=== PATIENT | female | born 2000 | race Caucasian/White ===

== ENCOUNTER → 2020-10-12 19:14 | Outpatient (CLI) | payer BC, SELFPAY | PROVIDERS: Visit Provider Nurse Practitioner Family | DX: Z11.52 Encounter for screening for COVID-19 (principal) | CPT/HCPCS: U0003 ==

== ENCOUNTER 2020-12-25 17:40 | Emergency (ER) | payer BC, SELFPAY ==
--- NOTE | 2020-12-25 20:05 | HMH.EDUTC ---
[facility] Disposition Clinical Impression: Viral syndrome, Exposure to COVID-19 virus, Amenorrhea Disposition: Home, Self-Care Condition on Discharge: Good Instructions: Diet, Preventing the Spread of Coronavirus Discharge Instructions Additional Instructions: Drink plenty of fluids. Take tylenol for pain or fever. Return if you have worsening symptoms. Follow up with your regular doctor. GO TO THE ER FOR ANY WORSENING SYMPTOMS Referrals: Ozzy Cobos MD [Primary Care Provider] - Time of Disposition: 20:07 Medical Decision Making - Medical Records Medical records reviewed: No: I reviewed the patient's medical records. - [place] Inquiry Pt receiving controlled substance: No Vital Signs: 12/25/20 20:29 12/25/20 20:32 Temperature 98.2 F 98 F Temperature Source Oral Pulse Rate 79 Pulse Rate [Left] 86 Respiratory Rate 22 20 Blood Pressure 136/80 Blood Pressure [Right Arm] 141/86 H Blood Pressure Mean [Right Arm] 104 02 Sat by Pulse Oximetry 96 - Lab Data Lab Results 12/25/20 20:12: HCG, Quant < 2 [facility] HPI - General Stated complaint: Covid test,[place] Time Seen by Provider: 12/25/20 20:05 - History of Present Illness Provider Complaint: She is here to be checked for covid. She also thinks that she might be . She has had 2 positive tests at home over the past 2 days. She denies any cough, congestion, fever, chills. - Related Data Home Medications Medication Instructions Recorded Confirmed lisinopril 10 mg tablet 10 mg PO DAILY 10/12/20 10/12/20 Previous Rx's Medication Instructions Recorded azithromycin 250 mg tablet 250 mg PO QDAY 5 Days #6 tab 10/12/20 benzonatate 200 mg capsule 200 mg PO TID PRN 7 Days #21 cap 10/12/20 Allergies Allergy/AdvReac Type Severity Reaction Status Date / Time No Known Allergies Allergy Verified 10/12/20 14:01 [facility] History - Hepatitis A Screen Attestation statement:: This patient has been screened for Hepatitis A risk factors. I have reviewed the patient's past medical history: Yes Medical History: Reports:: Hypertension Other Surgeries: Yes: No Previous Surgery - Social History Smoking Status: Never smoker Alcohol Intake: never Substance Use Type: denies use Occupational Status: student, employed Housing: house Household Members: family Family Hx:: Diabetes ROS Obtained: Yes All systems reviewed & no additional complaints - Constitutional Constitutional: Reports as per HPI - Eyes Eyes: Denies eye discharge - ENT Ears, Nose, Mouth, and Throat: Reports as per HPI - Cardiovascular Cardiovascular: Denies chest pain - Respiratory Respiratory: Reports chest congestion, Reports cough, Denies dyspnea, Denies stridor, Denies wheezing Physical Exam - General General appearance: alert, in no apparent distress - Head Head exam: atraumatic, normocephalic, normal inspection - Eye Eye exam: Present: normal appearance, PERRL, EOMI - ENT ENT exam: Present: normal exam, normal oropharynx, mucous membranes moist, TM's normal bilaterally, normal external ear exam - Neck Neck exam: Present: normal inspection, full ROM, trachea midline. Absent: meningismus, lymphadenopathy - Chest Chest inspection: Present: normal inspection, symmetric chest wall rise. Absent: tenderness - Respiratory Respiratory exam: Present: normal lung sounds bilaterally. Absent: respiratory distress - Cardiovascular Cardiovascular exam: Present: regular rate, normal rhythm. Absent: JVD - Abdominal Exam Abdominal exam: Present: soft, normal bowel sounds. Absent: distention, tenderness, guarding - Extremities Exam Extremities exam: Present: normal inspection, full ROM, normal capillary refill. Absent: calf tenderness - Back Exam Back exam: Present: normal inspection. Absent: tenderness - Neurological Exam Neurological exam: Present: alert, oriented X3 - Psychiatric Psychiatric exam
[2020-12-25 20:29] VITALS: BP 141/86; PULSE 86; RESP 22; TEMP 36.8; O2SAT 96; BMI 43.4
[2020-12-25 20:32] VITALS: BP 136/80; PULSE 79; RESP 20; TEMP 36.6
[2020-12-25 20:51] LABS: HCG,Quantitative < 2 mIU/ml (0-5.42)
== END 2020-12-25 20:35 | disposition home or self-care (01) ==
PROVIDERS: Emergency Provider Nurse Practitioner Family; PCP Family Medicine
DX: B34.9 Viral infection, unspecified; N91.2 Amenorrhea, unspecified; Z20.822 Contact with and (suspected) exposure to COVID-19
CPT/HCPCS: 84702; 99202; G0463; U0003

== ENCOUNTER 2021-02-22 19:42 | Emergency (ER) | payer BC, SELFPAY ==
--- NOTE | 2021-02-22 19:37 | ECG_ITS ---
APPROVED REPORT Exam: Resting ECG HR:86 bpm ECG Measurements Heart Rate 86 AXES MO 108 P 46 QRSd 74 QRS 54 QT 370 T 40 QTc 442 Conclusion Sinus rhythm with sinus arrhythmia with short MO Otherwise normal ECG Electronically signed by : Isaias Sanchez MD 02/23/2021 09:16:57
[2021-02-22 19:44] VITALS: BP 160/106; PULSE 86; RESP 17; TEMP 36.8; O2SAT 96; BMI 44.7
--- NOTE | 2021-02-22 19:55 | CT_ITS ---
PROCEDURE INFORMATION: Exam: CTA Chest With Contrast Exam date and time: 02/22/2021 7:55 PM Age: 20 years old Clinical indication: Pain; Angina pectoris; Additional info: Stabbing pain from back into chest TECHNIQUE: Imaging protocol: Computed tomographic angiography of the chest with contrast. 3D rendering (Not supervised by radiologist): MIP and/or 3D reconstructed images were created by the technologist. Radiation optimization: All CT scans at this facility use at least one of these dose optimization techniques: automated exposure control; mA and/or kV adjustment per patient size (includes targeted exams where dose is matched to clinical indication); or iterative reconstruction. Contrast material: ISO 370; Contrast volume: 70 ml; Contrast route: INTRAVENOUS (IV); COMPARISON: CR XR CHEST PORTABLE 02/22/2021 8:55 PM FINDINGS: Pulmonary arteries: Suboptimal opacification of the pulmonary arteries. No evidence of central PE. Aorta: Unremarkable. No aortic aneurysm. No aortic dissection. Lungs: A tiny calcified nodule seen in the left posterior lower lobe. Lungs are otherwise clear. Pleural spaces: Unremarkable. No pneumothorax. No pleural effusion. Heart: Unremarkable. No cardiomegaly. No pericardial effusion. Lymph nodes: Unremarkable. No enlarged lymph nodes. Bones/joints: Unremarkable. No acute fracture. Soft tissues: Unremarkable. IMPRESSION: No acute findings
--- NOTE | 2021-02-22 19:57 | XR_ITS ---
PROCEDURE INFORMATION: Exam: XR Chest Exam date and time: 02/22/2021 7:57 PM Age: 20 years old Clinical indication: Pain; Angina pectoris; Additional info: Pain in chest radiating from back TECHNIQUE: Imaging protocol: XR of the chest. Views: 1 view. COMPARISON: No relevant prior studies available. FINDINGS: Lungs: Unremarkable. No consolidation. Pleural spaces: Unremarkable. No pleural effusion. No pneumothorax. Heart/Mediastinum: Unremarkable. No cardiomegaly. Bones/joints: Unremarkable. IMPRESSION: No acute findings.
[2021-02-22 20:04] LABS: Basophils # 0.1 K/mm3 (0-0.2); Eosinophils # 0.2 K/mm3 (0.0-0.4); Eosinophils % 1.8 % (0.1-12.0); Hematocrit 39.4 % (37.0-47.0); Hemoglobin 12.3 g/dL (12.2-16.2); Lymphocytes # 3.2 K/mm3 (0.7-4.5); Lymphocytes % 31.2 % (10-50); Mean Corpuscular HGB Conc 31.2 g/dL (31.8-35.4); Mean Corpuscular Hemoglobin 25.5 pg (27.0-31.2); Mean Corpuscular Volume 81.9 fl (81-99); Mean Platelet Volume 8.6 fl (7.4-10.4); Monocytes # 0.4 K/mm3 (0.1-1.0); Monocytes % 3.6 % (1.7-9.3); Neutrophils # 6.3 K/mm3 (1.8-7.8); Neutrophils % 62.5 % (37.0-80.0); Platelet Count 321 K/mm3 (142-424); Red Blood Count 4.82 M/mm3 (4.20-5.40); Red Cell Distribution Width 15.2 % (11.5-17.5); White Blood Count 10.1 K/mm3 (4.5-13.0)
[2021-02-22 20:09] LABS: Alanine Aminotransferase 20 U/L (12-78); Albumin Level 4.4 g/dl (3.5-5.0); Alkaline Phosphatase 75 U/L (38-126); Amylase 66 U/L (30-110); Aspartate Amino Transferase 22 U/L (14-36); Bilirubin,Indirect 0.3 mg/dL (0.0-0.9); Bilirubin,Total 0.3 mg/dl (0.2-1.3); Bilirubin,Unconjugated 0.3 mg/dL (0.0-1.1); Blood Urea Nitrogen 11 mg/dl (7-17); Calcium 9.2 mg/dl (8.4-10.2); Carbon Dioxide 27 mmol/L (22.0-30.0); Chloride 106 mmol/L (98-107); Creatinine Clearance Estimated 139 mL/min (50-200); Estimated Glomerular Filt Rate 107 ml/min (>60); GFR (African American) 129 ML/MIN (>60); Glucose 93 mg/dl (74-100); Lipase 94 U/L (23-300); Sodium 141 mmol/L (136-145); Total Protein,Serum 7.8 g/dl (6.3-8.2)
[2021-02-22 20:14] LABS: C-Reactive Protein 11.7 mg/L (0-4)
[2021-02-22 20:18] LABS: HCG Qualitative, Serum Negative (Negative)
[2021-02-22 20:29] LABS: Erythrocyte Sedimentation Rate 15 mm/hr (0-20)
--- NOTE | 2021-02-22 20:51 | PC.NURSE ---
XR at bedside for portable
--- NOTE | 2021-02-22 20:54 | HMH.EDGENADL ---
ED Disposition Clinical Impression: Atypical chest pain Disposition: Home, Self-Care Condition on Discharge: Good Referrals: Nicci Baker PA [Primary Care Provider] - - Critical Care Critical Care Time: No Attestation: On 02/22/21, the high probability of a clinically significant, sudden or life threatening deterioration of the following system(s) required my full and direct attention, intervention and personal management. The time I documented below is in addition to time spent performing reported procedures but includes the following listed in this critical care notation. Medical Decision Making - Medical Records Medical records reviewed: Yes: I reviewed the patient's medical records. - [place] Inquiry Pt receiving controlled substance: No Vital Signs: 02/22/21 19:44 Temperature 98.3 F Temperature Source Oral Pulse Rate [Right Brachial] 86 Respiratory Rate 17 Blood Pressure [Right Arm] 160/106 H Blood Pressure Mean [Right Arm] 124 Blood Pressure Source [Right Arm] Automatic Cuff Blood Pressure Position [Right Arm] Sitting 02 Sat by Pulse Oximetry 96 Oxygen Delivery Method Room Air - Lab Data Lab Results 02/22/21 19:48: WBC 10.1, RBC 4.82, Hgb 12.3, Hct 39.4, MCV 81.9, MCH 25.5 L, MCHC 31.2 L, RDW 15.2, Plt Count 321, MPV 8.6, Neut % (Auto) 62.5, Lymph % (Auto) 31.2, [place] % (Auto) 3.6, Eos % (Auto) 1.8, Baso % (Auto) 1.0, Neut # (Auto) 6.3, Lymph # (Auto) 3.2, [place] # (Auto) 0.4, Eos # (Auto) 0.2, Baso # (Auto) 0.1, ESR 15 02/22/21 19:48: Sodium 141, Potassium 4.0, Chloride 106, Carbon Dioxide 27, Anion Gap 12.0, BUN 11, Creatinine 0.70, Estimated Creat Clear 139, Estimated GFR 107, Est GFR ( Amer) 129, Glucose 93, Calcium 9.2, Total Bilirubin 0.3, Direct Bilirubin 0.0, Conjugated Bilirubin 0.0, Indirect Bilirubin 0.3, Unconjugated Bilirubin 0.3, AST 22, ALT 20, Alkaline Phosphatase 75, C-Reactive Protein 11.7 H, Total Protein 7.8, Albumin 4.4, Amylase 66, Lipase 94 02/22/21 19:48: Serum HCG, Qual Negative 02/22/21 19:48: D-Dimer 0.50 Result diagrams: 02/22/21 19:48 02/22/21 19:48 Orders (Tests/Meds): ED MEDICATIONS Discontinued Medications Generic Name Dose Route Start Last Admin Trade Name Yoli PRN Reason Stop Dose Admin Iopamidol 70 ml 02/22/21 21:03 02/22/21 21:05 Iopamidol-370 (76%);100ml Bottle IV 02/22/21 21:04 70 ml ONCE ONE Administration Sodium Chloride 50 ml 02/22/21 21:03 02/22/21 21:05 0.9 % Sodium Chloride 50 Ml Vial IV 02/22/21 21:04 50 ml ONCE ONE Administration Sodium Chloride 10 ml 02/22/21 21:03 02/22/21 21:05 Sodium Chloride 0.9% 10ml Syr (Rad Only) IV 02/22/21 21:04 10 ml ONCE ONE Administration Medical Decision Narrative: Patient is a 20-year-old female presents the ED today with chest pain. Patient is well-appearing on initial evaluation in no acute distress and vital signs are stable. On initial evaluation patient rates her pain a 6 out of 10 is better after aspirin administration, staff obtained IV access shortly after arrival, given this possible allergic family history of aortic dissection, we will obtain CBC CMP D-dimer, test, have discussed further management with a CTA of the chest with the patient, patient is amenable. I believe the scan is indicated even if patient is young as she is having this atypical chest pain, started very suddenly, she is hypertensive, with a possible history in the family, would be a devastating diagnosis to miss. Labs reviewed with no evidence of elevated D-dimer, there is no actionable abnormality on CBC or CMP. Amylase and lipase without significant abnormality as well. Patient CTA has been independently interpreted did not visualize any intra aortic flap or dilation that would be consistent with a dissection or aneurysm, patient has been reassessed and her pain has been improving gradually throughout her ED stay, I have discussed with the patient signs and symptoms to look out
[2021-02-22 21:54] VITALS: BP 112/80; PULSE 88; RESP 19; TEMP 36.7; O2SAT 99
== END 2021-02-22 22:03 | disposition home or self-care (01) ==
PROVIDERS: Emergency Medicine; Emergency Provider Student in an Organized Health Care Education/Training Program; PCP Physician Assistant
DX: R07.9 Chest pain, unspecified (principal)
CPT/HCPCS: 71045; 71275; 80048; 80076; 82150; 83690; 84703; 85025; 85378; 85651; 86140; 93005; 99282; Q9967

== ENCOUNTER → 2021-03-23 10:23 | Outpatient (CLI) | payer BC, SELFPAY | PROVIDERS: PCP Family Medicine; Visit Provider Family Medicine | DX: Z20.822 Contact with and (suspected) exposure to COVID-19 (principal); U07.1 COVID-19 | CPT/HCPCS: C9803; U0003; U0005 ==

== ENCOUNTER 2021-03-25 07:51 | Outpatient (CLI) | payer BC, SELFPAY ==
[2021-03-25] VITALS (8 sets, daily range): BP systolic 107–142; BP diastolic 58–73; PULSE 79–96; RESP 16–18; TEMP 36.7; O2SAT 96–98
== END 2021-03-25 11:10 | disposition home or self-care (01) ==
LOC: INF 07:52
PROVIDERS: PCP Family Medicine; Visit Provider Family Medicine
DX: U07.1 COVID-19 (principal); Z23 Encounter for immunization
CPT/HCPCS: 96365

== ENCOUNTER → 2021-05-28 07:55 | Outpatient (CLI) | payer BC, SELFPAY ==
[2021-05-28 08:54] LABS: HCG,Quantitative 93 mIU/ml (0-5.42)
== END ==
LOC: LAB.DROPOF 07:55
PROVIDERS: Visit Provider Nurse Practitioner Family
DX: Z34.90 Encounter for supervision of normal pregnancy, unspecified, unspecified trimester (principal); Z3A.01 Less than 8 weeks gestation of pregnancy
CPT/HCPCS: 84702

== ENCOUNTER → 2021-06-05 08:37 | Outpatient (CLI) | payer BC, SELFPAY ==
[2021-06-05 09:42] LABS: HCG,Quantitative 2756 mIU/ml (0-5.42)
== END ==
LOC: LAB.DROPOF 08:37
PROVIDERS: Visit Provider Obstetrics & Gynecology
DX: Z34.90 Encounter for supervision of normal pregnancy, unspecified, unspecified trimester (principal)
CPT/HCPCS: 84702

== ENCOUNTER → 2021-06-06 07:57 | Outpatient (CLI) | payer BC, SELFPAY ==
[2021-06-06 09:14] LABS: Adenovirus,PCR Not Detected (NotDetected); Bordetella Pertussis Not Detected (NotDetected); Chlamydophila Pneumoniae, PCR Not Detected (NotDetected); Coronavirus 229E Not Detected (NotDetected); Coronavirus NL63 Not Detected (NotDetected); Coronavirus OC43 Not Detected (NotDetected); Coronovirus HKU1,PCR Not Detected (NotDetected); Human Metapneumovirus Not Detected (NotDetected); Influenza A, PCR Not Detected (NotDetected); Influenza AH1, 2009 Not Detected (NotDetected); Influenza AH1, PCR Not Detected (NotDetected); Influenza AH3,PCR Not Detected (NotDetected); Influenza B, PCR Not Detected (NotDetected); Mycoplasma Pneumoniae, PCR Not Detected (NotDetected); Parainfluenza 1, PCR Not Detected (NotDetected); Parainfluenza 2, PCR Not Detected (NotDetected); Parainfluenza 3, PCR Not Detected (NotDetected); Parainfluenza 4, PCR Not Detected (NotDetected); Respiratory Syncytial Virus Not Detected (NotDetected); Rhinovirus/Enterovirus Not Detected (NotDetected)
[2021-06-06 11:11] LABS: Coronavirus 19, PCR Detected (NotDetected)
== END ==
PROVIDERS: PCP Physician Assistant; Visit Provider Physician Assistant
DX: U07.1 COVID-19 (principal)
CPT/HCPCS: 87581; 87632; 87798; C9803; U0003; U0005

== ENCOUNTER → 2021-06-11 08:24 | Outpatient (CLI) | payer BC, SELFPAY ==
[2021-06-11 10:24] LABS: HCG,Quantitative 15605 mIU/ml (0-5.42)
== END ==
PROVIDERS: Visit Provider Obstetrics & Gynecology
DX: Z34.90 Encounter for supervision of normal pregnancy, unspecified, unspecified trimester (principal)
CPT/HCPCS: 84702

== ENCOUNTER → 2021-06-21 13:46 | Outpatient (CLI) | payer BC, SELFPAY ==
--- NOTE | 2021-06-21 13:47 | US_ITS ---
FINAL REPORT CLINICAL HISTORY: Dates--early ob FINDINGS: Sonographic images of the pelvis were obtained. There is a single living intrauterine . Average ultrasound age is 7 weeks, 3 days. Yolk sac measures 0.44 cm. [place] rump length is 1.22 cm which corresponds to 7 week 3 day gestation. Heart beat is detected at 144 bpm. The ovaries are normal measuring 3 cm on the right and 4.3 cm on the left. IMPRESSION: Single living intrauterine . Reviewed, Interpreted and Dictated by Armaan Mcpherson III, MD Transcribed by Sonia Bland Authenticated by Armaan Mcpherson III, MD on 06/21/2021 03:19:20 PM [facility]
== END ==
PROVIDERS: PCP Physician Assistant; Visit Provider Obstetrics & Gynecology
DX: Z34.90 Encounter for supervision of normal pregnancy, unspecified, unspecified trimester (principal)
CPT/HCPCS: 76801

== ENCOUNTER → 2021-06-28 16:49 | Outpatient (CLI) | payer BC, SELFPAY ==
[2021-07-02 23:12] LABS: Neisseria gonorrhoeae, NAA Negative (Negative)
== END ==
PROVIDERS: Visit Provider Obstetrics & Gynecology
DX: Z34.90 Encounter for supervision of normal pregnancy, unspecified, unspecified trimester (principal)
CPT/HCPCS: 87491; 87591

== ENCOUNTER → 2021-06-29 07:00 | Outpatient (CLI) | payer BC, SELFPAY ==
[2021-06-29 07:31] LABS: Basophils % 0.4 % (0.1-2.0); Eosinophils # 0.1 K/mm3 (0.0-0.4); Eosinophils % 1.5 % (0.1-12.0); Hematocrit 35.3 % (37.0-47.0); Hemoglobin 11.7 g/dL (12.2-16.2); Lymphocytes # 1.7 K/mm3 (0.7-4.5); Lymphocytes % 23.8 % (10-50); Mean Corpuscular HGB Conc 33.2 g/dL (31.8-35.4); Mean Corpuscular Hemoglobin 25.6 pg (27.0-31.2); Mean Corpuscular Volume 76.9 fl (81-99); Mean Platelet Volume 8.7 fl (7.4-10.4); Monocytes # 0.3 K/mm3 (0.1-1.0); Monocytes % 4.3 % (1.7-9.3); Neutrophils # 5.1 K/mm3 (1.8-7.8); Platelet Count 274 K/mm3 (142-424); Red Blood Count 4.59 M/mm3 (4.20-5.40); Red Cell Distribution Width 15.8 % (11.5-17.5); White Blood Count 7.2 K/mm3 (4.5-13.0)
[2021-06-30 10:12] LABS: Rubella Antibodies, IgG 1.26 index (Immune >0.99)
[2021-06-30 11:12] LABS: HIV Screen 4th Generation wRfx Non Reactive (Non Reactive)
[2021-06-30 12:22] LABS: Rapid Plasma Reagin Ab Titer Non Reactive (NonRea<1:1)
[2021-06-30 13:31] LABS: Hepatitis B Surface Antigen Negative (Negative); Hepatitis C Antibody <0.1 s/co ratio (0.0-0.9)
== END ==
LOC: LAB 07:01
PROVIDERS: PCP Physician Assistant; Visit Provider Obstetrics & Gynecology
DX: Z34.90 Encounter for supervision of normal pregnancy, unspecified, unspecified trimester (principal)
CPT/HCPCS: 36415; 85025; 86592; 86703; 86762; 86850; 87340; 87380; G0432

== ENCOUNTER → 2021-09-14 08:07 | Outpatient (CLI) | payer BC, SELFPAY ==
[2021-09-14 16:51] LABS: Collection Time,Urine 24 hours; Total Volume,Urine 1000 mL (600-1600)
[2021-09-14 16:54] LABS: Patient Height,Urine 71 inches; Patient Weight,Urine 323 lbs
[2021-09-14 17:42] LABS: Creatinine 24 Hour,Urine 1020 mg/24hr (630-2500); Total Protein 24 Hour,Urine 80 mg/24 hr (40-90)
[2021-09-14 17:51] LABS: Creatinine Clearance Urine 95.1 mL/min (25-115); Creatinine,Urine Random 102 mg/dL (Not Estab.)
== END ==
PROVIDERS: Visit Provider Obstetrics & Gynecology
DX: Z34.90 Encounter for supervision of normal pregnancy, unspecified, unspecified trimester (principal); E66.01 Morbid (severe) obesity due to excess calories; Z68.42 Body mass index [BMI] 45.0-49.9, adult
CPT/HCPCS: 82575; 84155

== ENCOUNTER → 2021-09-19 12:52 | Outpatient (CLI) | payer BC, SELFPAY ==
--- NOTE | 2021-09-19 12:52 | US_ITS ---
FINAL REPORT CLINICAL HISTORY: OB complete, anatomy scan; sub-optimal imaging ability due to morbid obesity FINDINGS: There is a single live intrauterine gestation. Presentation is cephalic. Placenta is posterior, grade 1. movement is noted. Heart rate is measured 150 beats per minute. Three-vessel cord with satisfactory umbilical cord insertion. Four-chamber heart is noted. brain and ventricles are unremarkable. Chest and diaphragm are unremarkable. ABDOMEN: Both kidneys are unremarkable. Stomach is unremarkable. SPINE: There is limited visualization of the spine. AMNIOTIC FLUID: Appropriate amount. MEASUREMENTS: ULTRASOUND AGE: 20 weeks 1 days. GESTATION AGE: 20 weeks 2 days. ESTIMATED WEIGHT: 337 g GROWTH PERCENTILE: 39% % BPD: 4.7 cm corresponding with 20 weeks 2 days. OFD: 6.0 cm corresponding with 20 weeks 4 days. HC: 17 cm corresponding with 19 weeks 5 days. AC: 15 cm corresponding with 20 weeks 2 days. FL: 3.3 cm corresponding with 20 weeks 2 days. CEREBELLUM: 2 cm corresponding with 20 weeks 1 days. HUMERUS: 3.0 cm corresponding with 20 weeks 1 days. NUCH FOLD: 1.6 mm HC/AC: 1.13 CI: 78% FL/BPD: 70% FL/AC: 22% IMPRESSION: Single living IUP with an ultrasound age of 20 weeks 1 days. No abnormality is identified. Reviewed, Interpreted and Dictated by Armaan Mcpherson III, MD Transcribed by Padmini Segundo Authenticated by Armaan Mcpherson III, MD on 09/19/2021 03:19:[address] [facility]
== END ==
LOC: RAD 12:52
PROVIDERS: PCP Physician Assistant; Visit Provider Obstetrics & Gynecology
DX: Z34.90 Encounter for supervision of normal pregnancy, unspecified, unspecified trimester (principal)
CPT/HCPCS: 76805

== ENCOUNTER → 2021-11-01 08:36 | Outpatient (CLI) | payer BC, SELFPAY ==
[2021-11-01 09:04] LABS: Basophils # 0.1 K/mm3 (0-0.2); Basophils % 1.2 % (0.1-2.0); Eosinophils # 0.1 K/mm3 (0.0-0.4); Eosinophils % 1.1 % (0.1-12.0); Hematocrit 34.8 % (37.0-47.0); Hemoglobin 11.7 g/dL (12.2-16.2); Lymphocytes # 1.6 K/mm3 (0.7-4.5); Lymphocytes % 16.8 % (10-50); Mean Corpuscular HGB Conc 33.8 g/dL (31.8-35.4); Mean Corpuscular Hemoglobin 26.8 pg (27.0-31.2); Mean Corpuscular Volume 79.2 fl (81-99); Mean Platelet Volume 8.8 fl (7.4-10.4); Monocytes # 0.4 K/mm3 (0.1-1.0); Monocytes % 3.8 % (1.7-9.3); Neutrophils # 7.5 K/mm3 (1.8-7.8); Neutrophils % 77.2 % (37.0-80.0); Platelet Count 301 K/mm3 (142-424); Red Blood Count 4.39 M/mm3 (4.20-5.40); Red Cell Distribution Width 16.1 % (11.5-17.5); White Blood Count 9.7 K/mm3 (4.5-13.0)
[2021-11-01 09:16] LABS: Glucose,Fasting 95 mg/dl (74-100)
[2021-11-01 10:24] LABS: Glucose 1 Hour 117 mg/dL (74-100)
== END ==
PROVIDERS: PCP Family Medicine; Visit Provider Obstetrics & Gynecology
DX: Z34.90 Encounter for supervision of normal pregnancy, unspecified, unspecified trimester (principal)
CPT/HCPCS: 36415; 82951; 85025

== ENCOUNTER 2021-11-20 17:47 | Outpatient (CLI) | payer BC, SELFPAY ==
[2021-11-20 17:56] VITALS: BMI 45.9
[2021-11-20 17:57] VITALS: BMI 44.3
[2021-11-20 18:07] LABS: Microscopic, Urine URINE MICROSCOPIC (MICROSCOPIC)
[2021-11-20 18:12] LABS: Appearance,Urine CLEAR (Clear); Bilirubin,Urine Negative (Negative); Blood, Urine Negative (Negative); Color,Urine YELLOW (Yellow); Glucose,Urine (UA) Negative (Negative); Ketones,Urine Negative (Negative); Leukocyte Esterase,Urine Negative (Negative); Nitrate,Urine Negative (Negative); PH,Urine 6.5 (5.0-8.5); Protein,Urine Negative (Negative); Specific Gravity, Urine 1.025 (1.005-1.030)
[2021-11-20 19:51] LABS: Amphetamine/Metha Screen,Urine Negative ng/ml (<1000); Barbiturates Screen,Urine Negative ng/ml (<200)
[2021-11-20 19:52] LABS: Benzodiazepines Screen,Urine Negative ng/ml (<200); Cannabinoid Screen,Urine Negative ng/ml (<50)
[2021-11-20 19:53] LABS: Cocaine Screen,Urine Negative ng/ml (<300)
[2021-11-20 19:54] LABS: Methadone Screen,Urine Negative ng/ml (<300); Opiate Screen,Urine Negative ng/ml (<300)
[2021-11-20 19:55] LABS: Phencyclidine Screen,Urine Negative ng/ml (<25)
[2021-11-20 20:03] LABS: Squamous Epithelial Cell,Urine Occasional #/hpf (0-5)
[2021-11-20 20:04] LABS: Bacteria,Urine Trace /lpf
== END 2021-11-20 19:02 | disposition home or self-care (01) ==
LOC: OBOUT 17:49 → OB 17:50
PROVIDERS: PCP Family Medicine; Visit Provider Obstetrics & Gynecology
DX: O47.03 False labor before 37 completed weeks of gestation, third trimester (principal); Z3A.29 29 weeks gestation of pregnancy
CPT/HCPCS: 80305; 81001

== ENCOUNTER → 2021-11-22 12:22 | Outpatient (CLI) | payer BC, SELFPAY ==
[2021-11-22 11:20] LABS: Fetal Membrane Rupture (Rapid) Negative (Negative)
== END ==
PROVIDERS: PCP Psychiatry & Neurology Sleep Medicine; Visit Provider Obstetrics & Gynecology
DX: Z34.90 Encounter for supervision of normal pregnancy, unspecified, unspecified trimester (principal); Z3A.30 30 weeks gestation of pregnancy
CPT/HCPCS: 84112

== ENCOUNTER → 2021-12-13 09:53 | Outpatient (CLI) | payer BC, SELFPAY ==
--- NOTE | 2021-12-13 09:53 | US_ITS ---
FINAL REPORT CLINICAL HISTORY: Growth and JONG-- lga FINDINGS: There is a single live intrauterine gestation. Presentation is vertex. The cervical length is normal at 4.2 cm. Placenta is posterior. movement is noted. Three-vessel cord with satisfactory umbilical cord insertion. Four-chamber heart is noted. brain and ventricles are unremarkable. Chest and diaphragm are unremarkable. ABDOMEN: Both kidneys are unremarkable. Stomach is unremarkable. SPINE: No anomalies identified. Both arms and legs noted. AMNIOTIC FLUID: 14.40 cm, normal MEASUREMENTS: ULTRASOUND AGE: 32 weeks 4 days. GESTATION AGE: 32 weeks 3 days. ESTIMATED WEIGHT: 1900 g GROWTH PERCENTILE: 29 % BPD: 8.26 cm corresponding to 33 weeks 2 days. OFD: 10.54 cm corresponding to 33 weeks 2 days. HC: 29.75 cm corresponding to 33 weeks 0 days. AC: 28.28 cm corresponding to 32 weeks 3 days. FL: 5.97 cm corresponding to 31 weeks 1 days. HC/AC: 1.05 CI: 78% FL/BPD: 72% FL/AC: 21% IMPRESSION: Single living IUP with an ultrasound age of 32 weeks 4 days. No anomalies noted. Reviewed, Interpreted and Dictated by Urvashi De La O MD Transcribed by Ale Qureshi Authenticated and . [facility]
== END ==
LOC: RAD 09:53
PROVIDERS: PCP Family Medicine; Visit Provider Obstetrics & Gynecology
DX: Z34.90 Encounter for supervision of normal pregnancy, unspecified, unspecified trimester (principal)
CPT/HCPCS: 76816

== ENCOUNTER 2022-01-07 17:51 | Outpatient (CLI) | payer BC, SELFPAY ==
[2022-01-07 18:05] VITALS: BMI 45.4
[2022-01-07 18:16] LABS: Microscopic, Urine URINE MICROSCOPIC (MICROSCOPIC)
[2022-01-07 18:31] LABS: Appearance,Urine CLEAR (Clear); Bilirubin,Urine Negative (Negative); Blood, Urine Negative (Negative); Color,Urine YELLOW (Yellow); Glucose,Urine (UA) Negative (Negative); Ketones,Urine Negative (Negative); Leukocyte Esterase,Urine Negative (Negative); Nitrate,Urine Negative (Negative); Protein,Urine Negative (Negative)
[2022-01-07 18:46] LABS: Barbiturates Screen,Urine Negative ng/ml (<200)
[2022-01-07 18:47] LABS: Amphetamine/Metha Screen,Urine Negative ng/ml (<1000); Benzodiazepines Screen,Urine Negative ng/ml (<200)
[2022-01-07 18:48] LABS: Cocaine Screen,Urine Negative ng/ml (<300)
[2022-01-07 18:49] LABS: Cannabinoid Screen,Urine Negative ng/ml (<50); Methadone Screen,Urine Negative ng/ml (<300)
[2022-01-07 18:50] LABS: Opiate Screen,Urine Negative ng/ml (<300)
[2022-01-07 18:51] LABS: Bacteria,Urine 4+ /lpf; Phencyclidine Screen,Urine Negative ng/ml (<25)
[2022-01-07 18:55] VITALS: BP 129/80; PULSE 114; RESP 18; TEMP 36.7; O2SAT 99; BMI 45.4
== END 2022-01-07 19:55 | disposition home or self-care (01) ==
LOC: OBOUT 17:54 → OB 17:55
PROVIDERS: PCP Obstetrics & Gynecology; Visit Provider Nurse Practitioner Obstetrics & Gynecology
DX: O26.893 Other specified pregnancy related conditions, third trimester (principal); Z3A.36 36 weeks gestation of pregnancy; R10.2 Pelvic and perineal pain
CPT/HCPCS: 59025; 80305; 81001; 87086; 96365; G0463

== ENCOUNTER → 2022-01-09 06:49 | Outpatient (CLI) | payer BC, SELFPAY | PROVIDERS: Visit Provider Obstetrics & Gynecology | DX: Z34.90 Encounter for supervision of normal pregnancy, unspecified, unspecified trimester (principal); Z3A.36 36 weeks gestation of pregnancy | CPT/HCPCS: 86403 ==

== ENCOUNTER → 2022-01-10 13:23 | Outpatient (CLI) | payer BC, SELFPAY ==
[2022-01-10 14:03] LABS: Basophils % 0.3 % (0.1-2.0); Eosinophils # 0.1 K/mm3 (0.0-0.4); Eosinophils % 0.6 % (0.1-12.0); Hematocrit 33.7 % (37.0-47.0); Hemoglobin 10.8 g/dL (12.2-16.2); Lymphocytes # 1.5 K/mm3 (0.7-4.5); Lymphocytes % 15.3 % (10-50); Mean Corpuscular Hemoglobin 24.8 pg (27.0-31.2); Mean Corpuscular Volume 77.4 fl (81-99); Mean Platelet Volume 8.7 fl (7.4-10.4); Monocytes # 0.4 K/mm3 (0.1-1.0); Monocytes % 4.3 % (1.7-9.3); Neutrophils # 7.8 K/mm3 (1.8-7.8); Neutrophils % 79.6 % (37.0-80.0); Platelet Count 295 K/mm3 (142-424); Red Blood Count 4.35 M/mm3 (4.20-5.40); Red Cell Distribution Width 15.9 % (11.5-17.5); White Blood Count 9.8 K/mm3 (4.8-10.8)
[2022-01-10 14:04] LABS: D-Dimer 1.16 ug/mL (0.0-0.5)
[2022-01-10 14:08] LABS: Activated Partial Thrombo Time 27.9 seconds (22.8-30.6); Fibrinogen 496 mg/dL (229.9-363.5); INR 0.96 (0.9-1.1); Prothrombin Time 10.9 seconds (10.1-12.5)
[2022-01-10 15:15] LABS: Alanine Aminotransferase 11 U/L (12-78); Anion Gap 10.7 mEq/L (5-15); Aspartate Amino Transferase 18 U/L (14-36); Blood Urea Nitrogen 3 mg/dl (7-17); Calcium 8.8 mg/dl (8.4-10.2); Carbon Dioxide 20 mmol/L (22.0-30.0); Chloride 109 mmol/L (98-107); Estimated Glomerular Filt Rate 201 ml/min (>60); GFR (African American) 244 ML/MIN (>60); Glucose 105 mg/dl (74-100); Potassium 3.7 mmoL/L (3.5-5.1); Sodium 136 mmol/L (136-145); Uric Acid 3.9 mg/dl (2.5-6.2)
== END ==
PROVIDERS: PCP Family Medicine; Visit Provider Nurse Practitioner Obstetrics & Gynecology
DX: Z34.90 Encounter for supervision of normal pregnancy, unspecified, unspecified trimester (principal)
CPT/HCPCS: 36415; 80048; 84450; 84460; 84550; 85025; 85378; 85384; 85610; 85730

== ENCOUNTER 2022-01-10 15:46 | Outpatient (CLI) | payer BC, SELFPAY ==
[2022-01-10 16:40] VITALS: BP 118/86; PULSE 128; RESP 18; TEMP 36.7; O2SAT 98; BMI 45.0
== END 2022-01-10 17:40 | disposition home or self-care (01) ==
LOC: OBOUT 15:48 → OB 15:49
PROVIDERS: PCP Obstetrics & Gynecology; Visit Provider Obstetrics & Gynecology
DX: O13.3 Gestational [pregnancy-induced] hypertension without significant proteinuria, third trimester (principal); Z3A.36 36 weeks gestation of pregnancy
CPT/HCPCS: 59025; 96365; G0463

== ENCOUNTER → 2022-01-14 08:55 | Outpatient (CLI) | payer BC, SELFPAY ==
[2022-01-14 09:19] LABS: Basophils # 0.2 K/mm3 (0-0.2); Basophils % 1.9 % (0.1-2.0); Eosinophils # 0.1 K/mm3 (0.0-0.4); Eosinophils % 0.8 % (0.1-12.0); Hematocrit 34.8 % (37.0-47.0); Hemoglobin 11.1 g/dL (12.2-16.2); Lymphocytes # 1.5 K/mm3 (0.7-4.5); Lymphocytes % 14.9 % (10-50); Mean Corpuscular HGB Conc 31.9 g/dL (31.8-35.4); Mean Corpuscular Hemoglobin 25.1 pg (27.0-31.2); Mean Corpuscular Volume 78.5 fl (81-99); Mean Platelet Volume 8.5 fl (7.4-10.4); Monocytes # 0.4 K/mm3 (0.1-1.0); Monocytes % 4.5 % (1.7-9.3); Neutrophils # 7.7 K/mm3 (1.8-7.8); Neutrophils % 77.9 % (37.0-80.0); Platelet Count 301 K/mm3 (142-424); Red Blood Count 4.43 M/mm3 (4.20-5.40); Red Cell Distribution Width 16.3 % (11.5-17.5); White Blood Count 9.9 K/mm3 (4.8-10.8)
[2022-01-14 10:05] LABS: Alanine Aminotransferase 10 U/L (12-78); Albumin Level 3.3 g/dl (3.5-5.0); Albumin/Globulin Ratio 1.2 (1.1-1.8); Alkaline Phosphatase 135 U/L (38-126); Anion Gap 10.2 mEq/L (5-15); Aspartate Amino Transferase 17 U/L (14-36); Bilirubin,Total < 0.1 mg/dl (0.2-1.3); Blood Urea Nitrogen 4 mg/dl (7-17); Carbon Dioxide 22 mmol/L (22.0-30.0); Chloride 109 mmol/L (98-107); Estimated Glomerular Filt Rate 201 ml/min (>60); GFR (African American) 244 ML/MIN (>60); Globulin 2.8 g/dL (1.3-3.2); Glucose 84 mg/dl (74-100); Potassium 4.2 mmoL/L (3.5-5.1); Sodium 137 mmol/L (136-145); Total Protein,Serum 6.1 g/dl (6.3-8.2)
[2022-01-14 10:06] LABS: Collection Time,Urine 24 hours; Total Volume,Urine 1700 mL (600-1600)
[2022-01-14 10:13] LABS: Patient Height,Urine 71 inches; Patient Weight,Urine 325 lbs
[2022-01-14 10:16] LABS: Creatinine,Urine Random 82 mg/dL (Not Estab.)
[2022-01-14 10:17] LABS: Creatinine 24 Hour,Urine 1394 mg/24hr (630-2500); Creatinine Clearance Urine 162.1 mL/min (25-115)
[2022-01-14 14:10] LABS: Total Protein 24 Hour,Urine 442 mg/24 hr (40-90)
== END ==
PROVIDERS: Nurse Practitioner Obstetrics & Gynecology; PCP Family Medicine; Visit Provider Obstetrics & Gynecology
DX: Z01.812 Encounter for preprocedural laboratory examination (principal); Z20.822 Contact with and (suspected) exposure to COVID-19; Z34.90 Encounter for supervision of normal pregnancy, unspecified, unspecified trimester; Z3A.36 36 weeks gestation of pregnancy
CPT/HCPCS: 36415; 80053; 82575; 84155; 85025; C9803; U0003; U0005

== ENCOUNTER 2022-01-15 10:02 | Inpatient (IN) | payer BC, SELFPAY ==
[2022-01-15] VITALS (11 sets, daily range): BP systolic 130–144; BP diastolic 53–94; PULSE 97–121; RESP 16–21; TEMP 36.4–36.8; O2SAT 100; BMI 32.8; BMI 45.3
--- NOTE | 2022-01-15 10:18 | HMH.PHAINT1 ---
Pharmacy Intervention Comments: MEDICATION RECONCILIATION COMPLETED ON PATIENT USING EXTERNAL FILL HISTORY FROM PHARMACY. -MENDOZA CHAUDHRY, LITOD
--- NOTE | 2022-01-15 10:22 | EXP.OB.APHP ---
OB - H&P: HPI Antepartum History of Present Illness Chief complaint: Chronic hypertension with superimposed preeclampsia History of present illness: Mrs Karo Diop is a 21 yo at 37w1d, by first trimester ultrasound, who presents to [facility] for scheduled elective primary . Delivery at 37 weeks secondary to chronic hypertension on Procardia 30 XL daily with superimposed preeclampsia. Patient requests secondary to narrow pelvis and non-engaged head. Patient reports family history of c-sections. She declines trial of labor. She admits to intermittent headaches and lower extremity edema. Denies vision changes and RUQ pain. Reports good movement. No leakage of fluid or vaginal bleeding. History of Present Criteria for establishing EDC:: based on 1st trimester US only care: good care Ultrasounds: normal 1st trimester US and normal mid trimester US Obstetrical complications: preeclampsia Labs Blood type: O (+) positive Rubella: immune RPR/VDRL: nonreactive GBS status: negative HBsAG: negative [facility] Medical History Daytime somnolence Gastroesophageal reflux disease Headache Morbid obesity Pre-eclampsia superimposed on chronic hypertension Social History Smoking Status: Never smoker alcohol intake: never substance use type: denies use current occupational status: employed household members: family housing: house Review of Systems Review of Systems Review of systems:: pertinent systems reviewed and negative unless documented below Constitutional Constitutional: Reports headache(s) ENT Ears, Nose, Mouth, and Throat: Reports headache(s) *Cardiovascular Cardiovascular: Reports leg edema and Reports pedal edema *Neurologic Neurologic: Reports headache(s) Meds Home Medications and Allergies Home Medications Medication Instructions Recorded Confirmed Type vit no.95-ferrous 1 tab PO DAILY Supplement 06/28/21 01/15/22 History fumarate 28 mg-folic acid 800 mcg tablet [id number]-[id number]-bsugedxs 1 cap PO Q8HP PRN headaches 01/15/22 01/15/22 History 50 mg-300 mg-40 mg capsule (Fioricet) ferrous sulfate 325 mg (65 mg 325 mg PO DAILY Supplement 01/15/22 01/15/22 History iron) tablet hydroxyzine pamoate 25 mg capsule 25 mg PO BIDP PRN pelvic pain 01/15/22 01/15/22 History (Vistaril) New Prescriptions to Start Prescriptions: Allergies Allergy/AdvReac Type Severity Reaction Status Date / Time No Known Allergies Allergy Verified 01/11/22 10:51 OB - H&P: Exam Constitutional no acute distress and obese Routine HEENT Exam Head: Present normocephalic Eye: Absent conjunctivae pink ENT: Present mucous membranes moist Routine Neck Exam Present full ROM Routine Respiratory Exam Present CTA bilaterally and normal respiratory effort Routine Cardiovascular Exam Present RRR Routine Abdominal Exam Present soft (Gravid) and obese; Absent tenderness Routine Extremities Exam Present edema (+ bilateral lower extremity edema) and full ROM; Absent calf tenderness Routine Neurological Exam Present alert and oriented X3 Routine Psychiatric Exam Present normal affect
[2022-01-15 10:56] LABS: Microscopic, Urine URINE MICROSCOPIC (MICROSCOPIC)
[2022-01-15 10:56] LABS: Coronavirus 19, PCR Not Detected (NotDetected); Influenza A, PCR Not Detected (NotDetected); Influenza B, PCR Not Detected (NotDetected)
[2022-01-15 10:58] LABS: Basophils % 0.2 % (0.1-2.0); Eosinophils # 0.1 K/mm3 (0.0-0.4); Eosinophils % 0.9 % (0.1-12.0); Hematocrit 32.9 % (37.0-47.0); Hemoglobin 10.5 g/dL (12.2-16.2); Lymphocytes # 1.3 K/mm3 (0.7-4.5); Lymphocytes % 14.2 % (10-50); Mean Corpuscular HGB Conc 31.9 g/dL (31.8-35.4); Mean Corpuscular Volume 75.2 fl (81-99); Mean Platelet Volume 7.6 fl (7.4-10.4); Monocytes # 0.5 K/mm3 (0.1-1.0); Monocytes % 5.1 % (1.7-9.3); Neutrophils # 7.3 K/mm3 (1.8-7.8); Neutrophils % 79.6 % (37.0-80.0); Platelet Count 272 K/mm3 (142-424); Red Blood Count 4.37 M/mm3 (4.20-5.40); Red Cell Distribution Width 15.2 % (11.5-17.5); White Blood Count 9.2 K/mm3 (4.8-10.8)
[2022-01-15 10:59] LABS: Appearance,Urine SL CLOUDY (Clear); Bilirubin,Urine Negative (Negative); Blood, Urine Negative (Negative); Color,Urine YELLOW (Yellow); Glucose,Urine (UA) Negative (Negative); Ketones,Urine 1+ (Negative); Leukocyte Esterase,Urine Negative (Negative); Nitrate,Urine Negative (Negative); Protein,Urine Negative (Negative)
[2022-01-15 11:09] LABS: Bacteria,Urine Trace /lpf; Benzodiazepines Screen,Urine Negative ng/ml (<200)
[2022-01-15 11:10] LABS: Amphetamine/Metha Screen,Urine Negative ng/ml (<1000); Barbiturates Screen,Urine Negative ng/ml (<200)
[2022-01-15 11:11] LABS: Methadone Screen,Urine Negative ng/ml (<300)
[2022-01-15 11:12] LABS: Cannabinoid Screen,Urine Negative ng/ml (<50); Cocaine Screen,Urine Negative ng/ml (<300)
[2022-01-15 11:13] LABS: Opiate Screen,Urine Negative ng/ml (<300)
[2022-01-15 11:14] LABS: Phencyclidine Screen,Urine Negative ng/ml (<25)
[2022-01-15 11:16] LABS: Chloride 110 mmol/L (98-107); Sodium 137 mmol/L (136-145)
[2022-01-15 11:19] LABS: Blood Urea Nitrogen 3 mg/dl (7-17); Calcium 9.2 mg/dl (8.4-10.2); Carbon Dioxide 20 mmol/L (22.0-30.0); Creatinine Clearance Estimated 374 mL/min (50-200); Estimated Glomerular Filt Rate 201 ml/min (>60); GFR (African American) 244 ML/MIN (>60); Glucose 92 mg/dl (74-100)
--- NOTE | 2022-01-15 13:25 | EXP.ANES.CKL ---
[facility] Medical History Daytime somnolence Gastroesophageal reflux disease Headache Morbid obesity Pre-eclampsia superimposed on chronic hypertension Social History Smoking Status: Never smoker alcohol intake: never substance use type: denies use current occupational status: employed household members: family housing: house [facility] Anesthesia Checklist Patient Identification Patient Identification: Arm Band Structural Data Admitted From: Inpatient Planned Operative Procedure/s: Primary C/S Consent for Planned Operative Procedure(s) Verified: Yes Verified Documents: Surgical Consent and History and Physical NPO Status Verified Time NPO: 00:00 Additional verifications Anesthesia Reactions: No Airway Assessment C-Spine Mobility Assessed: Yes TMJ Mobility Assessed: Yes Dentition: Good Dentition Neurological Assessment Level of Consciousness: Awake and Alert Anesthesia Plan Anesthesia Risk discussed: Yes Anesthesia Plan: Verified ASA Class: II Anesthesia Type: Spinal (with Bilateral TAP block)
--- NOTE | 2022-01-15 13:27 | P.PNANES_ITS ---
[facility] Anesthesia Record Part I Anesthesia Record I Intake, IV Amount: 2,000 Estimated blood loss (mL): 600 Urine output (mL): 300 Blood Pressure: 138/76 SaO2: 100 Pulse Rate: 101 Respiratory Rate: 16 Temperature: 97.5 F Patient is:: Awake and Stable Stable to PACU at:: 13:20
--- NOTE | 2022-01-15 13:32 | EXP.OB.APHP ---
OB - H&P: HPI Antepartum History of Present Illness Chief complaint: Preeclampsia superimposed on chronic hypertension History of present illness: Mrs Karo Diop is a 21 yo at 37w1d, by first trimester ultrasound, who presents to [facility] for scheduled elective primary . Delivery at 37 weeks secondary to chronic hypertension on Procardia 30 XL daily with superimposed preeclampsia. Patient requests secondary to narrow pelvis and non-engaged head. Patient reports family history of c-sections. She declines trial of labor. She admits to intermittent headaches and lower extremity edema. Denies vision changes and RUQ pain. Reports good movement. No leakage of fluid or vaginal bleeding. History of Present Criteria for establishing EDC:: based on 1st trimester US only care: good care Ultrasounds: normal mid trimester US Obstetrical complications: preeclampsia Labs Blood type: O (+) positive [facility] Medical History (Updated 01/15/22 @ 13:38 by Kaylee Syed DO) Daytime somnolence Delivery by elective section Gastroesophageal reflux disease Headache Morbid obesity Other abnormal clinical finding Pre-eclampsia superimposed on chronic hypertension Social History Smoking Status: Never smoker alcohol intake: never substance use type: denies use current occupational status: employed Travel in the last 8 weeks: None household members: family housing: house Review of Systems Review of Systems Review of systems:: pertinent systems reviewed and negative unless documented below Constitutional Constitutional: Reports headache(s) ENT Ears, Nose, Mouth, and Throat: Reports headache(s) *Cardiovascular Cardiovascular: Reports leg edema and Reports pedal edema *Neurologic Neurologic: Reports headache(s) Meds Home Medications and Allergies Home Medications Medication Instructions Recorded Confirmed Type vit no.95-ferrous 1 tab PO DAILY Supplement 06/28/21 01/15/22 History fumarate 28 mg-folic acid 800 mcg tablet [id number]-[id number]-vlswkmgc 1 cap PO Q8HP PRN headaches 01/15/22 01/15/22 History 50 mg-300 mg-40 mg capsule (Fioricet) ferrous sulfate 325 mg (65 mg 325 mg PO DAILY Supplement 01/15/22 01/15/22 History iron) tablet hydroxyzine pamoate 25 mg capsule 25 mg PO BIDP PRN pelvic pain 01/15/22 01/15/22 History (Vistaril) New Prescriptions to Start Prescriptions: Allergies Allergy/AdvReac Type Severity Reaction Status Date / Time No Known Allergies Allergy Verified 01/11/22 10:51 OB - H&P: Exam Physical Exam Vital signs: Temp Pulse Resp BP 97.5 F L 101 H 16 138/76 01/15/22 13:28 01/15/22 13:28 01/15/22 13:28 01/15/22 13:28 Constitutional no acute distress and morbidly obese Routine HEENT Exam Head: Present normocephalic Eye: Absent conjunctivae pink ENT: Present mucous membranes moist Routine Respiratory Exam Present CTA bilaterally and normal respiratory effort Routine Cardiovascular Exam Present RRR Routine Abdominal Exam Present soft (Gravid); Absent tenderness Routine Exam External: Present normal urethra appearance Routine Extremities Exam Present edema (+2 bilateral lower extremity swelling) and full ROM; Absent calf tenderness Routine Neurological Exam Present alert and oriented X3 Routine Psychiatric Exam Present normal affect and cooperative OB - Results Labs Labs: Short CBC 01/15/22 Range/Units 10:45 WBC 9.2 (4.8-10.8) K/mm3 Hgb 10.5 L (12.2-16.2) g/dL Hct 32.9 L (37.0-47.0) % Plt Count 272 (142-424) K/mm3 BMP 01/15/22 10:45 Sodium 137 Potassium 4.0 Chloride 110 H Carbon Dioxide 20 L BUN 3 L Creatinine 0.40 L Glucose 92 Calcium 9.2 Urine 01/15/22 Range/Units 10:23 Urine Color Yellow (Yellow) Urine Appearance Sl cloudy (Clear)
--- NOTE | 2022-01-15 13:40 | EXP.OP.NOTE ---
Date of procedure: 01/15/22 Pre-op Diagnosis:: 1. IUP at 37w1d 2. Preeclampsia superimposed on chronic hypertension 3. Chronic hypertension 4. Morbid obesity, BMI 45.3 5. Anemia of 6. Narrow pelvis 7. Unengaged head Post-op Diagnosis:: 1. IUP at 37w1d 2. Preeclampsia superimposed on chronic hypertension 3. Chronic hypertension 4. Morbid obesity, BMI 45.3 5. Anemia of 6. Narrow pelvis 7. Unengaged head Procedure performed:: Primary low transverse section Surgeon:: Kaylee Syed DO [employer] Machine Tender(s):: Donnie Oliver MD PLASTIC PANEL INSTALLER:: Manolo Dean Anesthesia: spinal Estimated blood loss (mL): 600 Clinical Note:: Mrs Karo Diop is a 21 yo at 37w1d, by first trimester ultrasound, who presents to [facility] for scheduled elective primary . Delivery at 37 weeks secondary to chronic hypertension on Procardia 30 XL daily with superimposed preeclampsia. Patient requests secondary to narrow pelvis and non-engaged head. Patient reports family history of c-sections. She declines trial of labor.? She admits to intermittent headaches and lower extremity edema. Denies vision changes and RUQ pain. Reports good movement. No leakage of fluid or vaginal bleeding. Operative findings:: 1. Uterus, bilateral fallopian tubes and bilateral ovaries grossly normal 2. Live female baby, baby's name is Ottoniel, weighing 6 lb 15 oz 3. APGARs 5, 9 Operative note:: The risks, benefits and alternatives of the procedure were reviewed with the patient. Informed consent was obtained. Patient was taken to the operating room where epidural was bolused. The patient received 2 grams of Ancef preoperatively. Patient was placed in dorsal supine position with a leftward tilt. SCDs in place. Castano catheter had been placed and was draining clear urine prior to the start of the procedure. heart tones were obtained. Patient was then prepped and draped in normal sterile fashion. Allis clamp test was performed to ensure adequate anesthesia. A Pfannenstiel skin incision was made 2 cm above pubic symphysis. This was carried through to underlying layer of fascia. Fascia was incised in midline, extended laterally with Cox scissors. Superior aspect of fascial incision was grasped with two Micky clamps, elevated up, and rectus muscle dissected off bluntly and sharply with Cox scissors. The retcus muscle was then in the midline and the peritoneum was entered bluntly with a digit. Peritoneal incision was then extended superiorly and inferiorly with good visualization of the bladder. Munir retractor was inserted. Metzenbaum scissors were used on the vesicouterine peritoneum to create a bladder flap. The lower uterine segment was incised in a transverse fashion. Clear amniotic fluid was noted. Head was delivered with some difficulty. No nuchal cord. Remainder of body was delivered without difficulty. Mouth and nares were bulb suctioned, baby was dried and stimulated. The umbilical cord was clamped and cut. The was handed to awaiting pediatric staff in stable condition. Dr. Bloom was present. Apgars were 5(1 min), 9(5 min). Cord blood was obtained. Gentle traction on the umbilical cord and uterine fundal massage delivered the placenta. Placenta was intact. Placenta will be sent to pathology for review. Uterus was lifted from the abdomen, massaged and cleared of all clots and debris with a moist laparotomy sponge. Corners of the uterine incision were grasped with Allis clamps. Uterus was returned to the abdomen. The uterine incision was reapproximated with # 1 Vicryl suture in a running, locked stitch. Second layer of the same stitch was used to imbricate the incision. Hemostasis was noted. Posterior cul-de-sac was cleaned with moist laparotomy sponge. Gutters cleared of all clots and debris with a moist laparotomy sponge. Incision was reperitonealized with 2-0 Vicryl suture in a running stitch. Reinspection of the
--- NOTE | 2022-01-15 14:23 | SUR.PHASEI ---
LATE ENTRY 1325- blood loss at this time is 1040.6, Dr. syed notified of this blood loss. Blood loss protocols in place. RBC's on hold and lab notified, Q5min vitals being taken, pt already received 0.2 methergine in the OR, another site of IV access unable to be obtained and Dr. Syed is okay with only having the one IV site at this time. No other orders in place
--- NOTE | 2022-01-15 14:28 | SUR.PHASEI ---
1355- detailed report called to meryl rodríguez on ob floor. 1400- pt left in stable condition in pt room with meryl chavez
--- NOTE | 2022-01-15 15:09 | SUR.OPER ---
9194-detailed report to radha tob 1227
[2022-01-15 15:12] LABS: Microscopic,Cath URINE MICROSCOPIC (MICROSCOPIC)
[2022-01-15 15:20] LABS: Appearance,Urine/Cath CLEAR (Clear); Bilirubin,Cath Negative (Negative); Blood, Urine/Cath Negative (Negative); Color,Urine/Cath YELLOW (Yellow); Glucose,Urine/Cath (UA) Negative (Negative); Ketones,Urine/Cath 2+ (Negative); Leukocyte Esterase,Cath Negative (Negative); Nitrate,Cath Negative (Negative); Protein,Urine/Cath Negative (Negative); Specific Gravity, Urine/Cath <= 1.005 (1.005-1.030); Urobilinogen,Cath 0.2 EU/dl (0.2)
[2022-01-16 06:48] LABS: Eosinophils # 0.1 K/mm3 (0.0-0.4)
[2022-01-16 06:50] LABS: Basophils # 0.1 K/mm3 (0-0.2); Basophils % 1.1 % (0.1-2.0); Eosinophils % 0.5 % (0.1-12.0); Hematocrit 28.2 % (37.0-47.0); Lymphocytes # 1.9 K/mm3 (0.7-4.5); Lymphocytes % 19.8 % (10-50); Mean Corpuscular HGB Conc 33.3 g/dL (31.8-35.4); Mean Corpuscular Hemoglobin 25.4 pg (27.0-31.2); Mean Corpuscular Volume 76.2 fl (81-99); Mean Platelet Volume 9.7 fl (7.4-10.4); Monocytes # 0.8 K/mm3 (0.1-1.0); Monocytes % 8.8 % (1.7-9.3); Neutrophils # 6.5 K/mm3 (1.8-7.8); Neutrophils % 69.7 % (37.0-80.0); Platelet Count 227 K/mm3 (142-424); Red Blood Count 3.71 M/mm3 (4.20-5.40); Red Cell Distribution Width 16.3 % (11.5-17.5); White Blood Count 9.3 K/mm3 (4.8-10.8)
[2022-01-16 06:52] LABS: Hemoglobin 9.4 g/dL (12.2-16.2)
--- NOTE | 2022-01-16 08:11 | P.PNANES_ITS ---
[facility] Anesthesia Record Part II Anesthesia Record Part II Discharge Time: 14:00 Destination: Obstetric PACU nurse assessment reviewed?: Yes Patient Condition:: Good Anesthesia Complications:: None Swallowing reflex intact?: Yes Cyanosis?: No Blood Pressure: 138/94 Pulse Rate: 101 Temperature: 97.5 F Mental Status: Alert & Oriented Pain level:: 0 Nausea and/or vomitting:: None Intake, IV Amount: 0
[2022-01-16 08:12] VITALS: BP 138/94; PULSE 101; TEMP 36.4
--- NOTE | 2022-01-16 11:11 | EXP.ACUTE.PN ---
Subjective *Date: 02/13/22 *Time: 11:24 Interval history: POD # 1 s/p PLTCS Doing well. She is sitting in bed comfortably. Pain controlled. She is breast and bottle feeding. Voiding without difficulty. Passing flatus. No BM. Tolerating regular diet. Denies fever/chills, chest pain and shortness of breath. Denies headache and dizziness. Admits to lower extremity swelling, but she believes it is improving. Medical Exam Vital signs and Labs for Last 24 Hours: Temp Pulse Resp BP Pulse Ox 97.5 F L 101 H 16 138/94 H 100 01/16/22 08:12 01/16/22 08:12 01/15/22 14:00 01/16/22 08:12 01/15/22 14:00 Laboratory Results - last 24 hr 01/15/22 10:23: Urine Opiates Screen Negative, Urine Methadone Screen Negative, Ur Barbituates Screen Negative, Ur Phencyclidine Scrn Negative, Ur Amphetamines Screen Negative, U Benzodiazepines Scrn Negative, Urine Cocaine Screen Negative, U Marijuana (THC) Screen Negative 01/15/22 10:45: Sodium 137, Potassium 4.0, Chloride 110 H, Carbon Dioxide 20 L, Anion Gap 11.0, BUN 3 L, Creatinine 0.40 L, Estimated Creat Clear 374 H, Estimated GFR 201, Est GFR ( Amer) 244, Glucose 92, Calcium 9.2 01/15/22 10:45: Blood Type O Positive, Antibody Screen Negative, Crossmatch (AHG) See Detail 01/15/22 10:45: SARS-CoV-2 (PCR) Not detected, Influenza A Untype (PCR) Not detected, Influenza Type B (PCR) Not detected 01/15/22 12:02: Urine Color Yellow, Urine Appearance Clear, Urine pH 7.0, Ur Specific [place] <= 1.005, Urine Protein Negative, Urine Glucose (UA) Negative, Urine Ketones 2+, Urine Blood Negative, Urine Nitrate Negative, Urine Bilirubin Negative, Urine Urobilinogen 0.2, Ur Leukocyte Esterase Negative, Urine RBC None, Urine WBC None, Ur Squamous Epith Cells None, Urine Bacteria None 01/16/22 06:10: WBC 9.3, RBC 3.71 L, Hgb 9.4 L D, Hct 28.2 L, MCV 76.2 L, MCH 25.4 L, MCHC 33.3, RDW 16.3, Plt Count 227, MPV 9.7, Neut % (Auto) 69.7, Lymph % (Auto) 19.8, [place] % (Auto) 8.8, Eos % (Auto) 0.5, Baso % (Auto) 1.1, Neut # (Auto) 6.5, Lymph # (Auto) 1.9, [place] # (Auto) 0.8, Eos # (Auto) 0.1, Baso # (Auto) 0.1 I & O for Labs for Last 24 Hours: Intake & Output 01/13/22 01/14/22 01/15/22 01/16/22 23:59 23:59 23:59 23:59 Intake Total 1999 0 / 0 Balance 1999 0 / 0 Weight 325 lb Head: atraumatic, normocephalic and normal inspection Eyes: change in vision (No ) ENT: mucous membranes moist, normal external ear exam and other (swollen, puffy gums consistent with gingivitis) Neck: normal inspection and full ROM Respiratory: CTA bilaterally and normal respiratory effort Cardiac: Reg Rate and Rhythm GI: soft, distention (No), tenderness (No), guarding (No) or normal bowel sounds Comments:: Pfannenstiel incision clean/dry/intact. Steri strips present. No drainage or erythema Extremities: normal inspection, full ROM, tenderness (No), edema (+2 bilateral lower extremity swelling) and calf tenderness (No) Neuro: alert, awake, oriented x 3 and moves all extremities Assessment and Plan *Assessment and plan (1) : Status: Resolved Qualifiers: Weeks of gestation: 37 weeks Qualified Code(s): Z3A.37 - 37 weeks gestation of Category: Medical Code(s): Z34.90 - Encounter for supervision of normal , unspecified, unspecified trimester (2) Pre-eclampsia superimposed on chronic hypertension: Status: Resolved Category: Medical Code(s): O11.9 - Pre-existing hypertension with pre-eclampsia, unspecified trimester (3) Chronic hypertension during : Status: Resolved Category: Medical Code(s): O10.919 - Unspecified pre-existing hypertension complicating , unspecified trimester (4) Morbid obesity with body mass index (BMI) of 40.0 to 44.9 in adult: Status: Acute Category: Medical Code(s): E66.01 - Morbid (severe) obesity due to excess calories; Z68.41 - Body mass index [BMI] 40.0-44.9, adult (5) An
--- NOTE | 2022-01-16 13:53 | P.CONPHA_ITS ---
[facility] Pharmacy VTE Monitoring Patient Demographics Admission date: 01/15/22 Report Date: 01/16/22 Time: 13:53 Patient Allergies No Known Allergies Allergy (Verified 01/11/22 10:51) Height: 1.8 m Weight: 147.418 kg Current Active Problems (Updated 01/16/22 @ 11:33 by Kaylee Syed DO) Acute postoperative anemia due to expected blood loss (Acute) Other abnormal clinical finding (Acute) Pre-eclampsia superimposed on chronic hypertension (Acute) Morbid obesity with body mass index (BMI) of 40.0 to 44.9 in adult (Acute) Anemia complicating (Acute) Chronic hypertension during (Acute) (Acute) VTE Risk Labs: VTE Related Lab Results Hgb 9.4 g/dL (12.2-16.2) L D 01/16/22 06:10 Hct 28.2 % (37.0-47.0) L 01/16/22 06:10 Plt Count 227 K/mm3 (142-424) 01/16/22 06:10 BUN 3 mg/dl (7-17) L 01/15/22 10:45 Creatinine 0.40 mg/dl (0.52-1.04) L 01/15/22 10:45 Estimated Creat Clear 374 mL/min (50-200) H 01/15/22 10:45 Prophylaxis VTE Prophylaxis Ordered?: Yes Types of VTE Prophylaxis: IPCS Thigh High and Pharmacological Location of Applied Device: Bilateral Lower Extremeties Pharmacologic Type: Enoxaparin
--- NOTE | 2022-01-17 12:23 | EXP.DC.SUM ---
General Admission date:: 01/15/22 Discharge date: 01/17/22 HPI HPI HPI: POD # 2 s/p PLTCS She is doing well. Sitting on bedside. Pain is controlled. Light lochia. She is bottle feeding. Voiding without difficulty. Passing flatus. No BM. Tolerating regular diet. Denies fever/chills, nausea/vomiting, chest pain and shortness of breath. Denies headaches and vision changes. Admits to lower extremity swelling. Hospital Course Hospital Course Hospital Course: Mrs Karo Diop is a 21 yo at 37w1d, by first trimester ultrasound, who presented to [facility] for scheduled elective primary . Delivery scheduled at 37 weeks secondary to chronic hypertension on Procardia 30 XL daily with superimposed preeclampsia. Patient requests secondary to narrow pelvis and non-engaged head during vaginal exam. Patient reports family history of c-sections. She declines trial of labor.? She admits to intermittent headaches and lower extremity edema. 24 hour urine protein was 442. She underwent primary on 01/15/22. She delivered a girl, Ottoniel, weighing 6 lb 15 oz. APGARs 5, 9. EBL 600 cc. POD # 1. She was doing well. Pain controlled. She was breast and bottle feeding. Appropriate amount of lochia. Vital signs stable, afebrile. Procardia was continued daily. She received Venofer 200mg IV x 1 dose for acute blood loss anemia. On exam, heart was regular rate and rhythm, lungs clear to auscultation bilaterally, abdomen was soft nontender, + BS in all 4 quadrants. She was voiding without difficulty and passing flatus. She denied headache and vision changes. She has +2 bilateral lower extremity on exam. No calf tenderness to palpation. POD # 2. She was doing well. Pain controlled. Light lochia. She decided to proceed with bottle feeding. Vital signs stable, afebrile. Voiding without difficulty. Passing flatus. Tolerating regular diet. Heart was regular rate and rhythm, lungs were clear to auscultation, abdomen was soft and nontender. Incision clean/dry/intact. She denied headaches and vision changes. She had +2 bilateral lower extremity edema. No calf tenderness to palpation. Normal hospital course. 01/15/22: Hgb 10.5, Hct 32.9 01/16/22: Hgb 9.4, Hct 28.2 Exam Data for Last 24 hours Vital signs and Labs for Last 24 Hours: Temp Pulse Resp BP Pulse Ox 97.5 F L 101 H 16 138/94 H 100 01/16/22 08:12 01/16/22 08:12 01/15/22 14:00 01/16/22 08:12 01/15/22 14:00 I & O for Last 24 hours: Intake & Output 01/14/22 01/15/22 01/16/22 01/17/22 23:59 23:59 23:59 23:59 Intake Total 1999 0 / 0 Balance 1999 0 / 0 Weight 325 lb 325 lb Constitutional Constitutional: no acute distress and morbidly obese *Routine HEENT Exam Head: Present normocephalic Eye: Absent conjunctivae pink ENT: Present mucous membranes moist and other (gingivitis) *Routine Respiratory Exam Respiratory: Present CTA bilaterally and normal respiratory effort *Routine Cardiovascular Exam Cardiovascular: Present RRR *Routine Abdominal Exam Abdominal: Present soft and normoactive bowel sounds; Absent tenderness or distended Comments: Pfannenstiel incision clean/dry/intact, steri strips present. No erythem or drainage. Uterine fundus firm and below umbilicus *Routine Extremities Exam Extremities: Present edema (+2 bilateral lower extremity edema) and full ROM; Absent calf tenderness *Routine Neurological Exam Neurological: Present alert, oriented X3 and moving all extremities Routine Psychiatric Exam Psychiatric: Present normal affect and cooperative DS: Diagnosis Discharge Diagnosis (1) : Status: Acute (2) Pre-eclampsia superimposed on chronic hypertension: Status: Acute (3) Chronic hypertension during : Status: Acute (4) Morbid obesity with body mass index (BMI) of 40.0 to 44.9 in adult: Status: Acute (5) Anemia complicating : Status: Acute (6) Other abnormal clinical f
== END 2022-01-17 13:31 | disposition home or self-care (01) | DRG 787 ==
PROVIDERS: Admitting Provider Obstetrics & Gynecology; PCP Obstetrics & Gynecology; Visit Provider Obstetrics & Gynecology
PROC: 10D00Z1 Extraction of Products of Conception, Low, Open Approach (ICD-10-PCS; CPT 59514; principal; 2022-01-15 12:00)
DX: O11.4 Pre-existing hypertension with pre-eclampsia, complicating childbirth (principal); D62 Acute posthemorrhagic anemia; O33.0 Maternal care for disproportion due to deformity of maternal pelvic bones; Z3A.37 37 weeks gestation of pregnancy; Z37.0 Single live birth; O90.81 Anemia of the puerperium
CPT/HCPCS: 59514; 36415; 59025; 80048; 80305; 81001; 85025; 86850; 94761; C9290; C9803; G0283; J1756; J2405; U0003; U0005

== ENCOUNTER 2022-02-10 09:18 | Emergency (ER) | payer BC, SELFPAY ==
[2022-02-10 09:25] VITALS: BP 141/73; PULSE 79; RESP 20; TEMP 36.8; O2SAT 98; BMI 43.7
--- NOTE | 2022-02-10 09:37 | EXP.UTC ---
Discharge Plan Disposition Patient Disposition: Home, Self-Care Condition: Good Prescriptions Prescriptions: New amoxicillin [amoxicillin] 500 mg tablet 500 mg PO TID 10 Days Qty: 30 0RF No Action nifedipine 30 mg tablet extended release 24hr 30 mg PO DAILY Referrals Follow up/Referrals: Uriel Bloom MD [Primary Care Provider] - See instructions Activity Restrictions/Add. Instructions Additional Instructions/Restrictions: Drink plenty of fluids. Take tylenol or ibuprofen for pain or fever. Take the medications as directed. Follow up with your regular doctor. GO TO THE ER FOR ANY WORSENING SYMPTOMS Clinical Impressions Clinical Impression: Otitis media Instructions Patient Instructions: Middle Ear Infection Discharge ED Provider: Philip Bailey [facility] HPI General Stated complaint: ear pain Mode of Arrival: Ambulatory Source of Information: Patient Limitations: No Limitations Time Seen by Provider: 02/10/22 09:37 Description of Symptoms (Recalled from Triage Doc. by RN): PATIENT C/O LEFT EAR PAIN X 2 DAYS HEENT Symptoms (Recalled from RN notes): Yes Resp Symptoms (Recalled from RN notes): No Skin Symptoms (Recalled from RN notes): No MS Symptoms (Recalled from RN notes): No Functional Status (Recalled from RN notes): WNL History of Present Illness Provider Complaint: She states that for the past 2 days she has been having worsening left ear pain. She has had a runny nose and sinus congestion also. She is currently breast feeding. Related Data Home Medications Medication Instructions Recorded Confirmed nifedipine 30 mg tablet,extended 30 mg PO DAILY Hypertension 02/10/22 02/10/22 release 24 hr Previous Rx's Medication Instructions Recorded amoxicillin 500 mg tablet 500 mg PO TID 10 days #30 tabs 02/10/22 Allergies Allergy/AdvReac Type Severity Reaction Status Date / Time No Known Allergies Allergy Verified 02/01/22 10:17 Worker's Comp Is this a Worker's Comp case?: No PFSH PFS Medical History Anxiety Chronic hypertension Daytime somnolence Delivery by elective section Depression Gastroesophageal reflux disease Headache Hypertension Migraine Morbid obesity Other abnormal clinical finding Pre-eclampsia superimposed on chronic hypertension Surgical History History of delivery Social History Smoking Status: Never smoker alcohol intake: never substance use type: denies use current occupational status: employed Travel in the last 8 weeks: None household members: family housing: house ROS Obtained: Yes All systems reviewed & no additional complaints except as documented Constitutional Constitutional: Denies chills, Reports fever(s) and Reports poor appetite Eyes Eyes: Denies eye discharge ENT Ears, Nose, Mouth, and Throat: Denies ear discharge, Reports otalgia, Denies hearing loss, Denies sinus pain and Reports sore throat Cardiovascular Cardiovascular: Denies chest pain and Denies dyspnea Respiratory Respiratory: Denies chest congestion, Reports cough and Denies dyspnea Gastrointestinal Gastrointestingal: Denies abdominal pain, diarrhea, nausea or vomiting Musculoskeletal Musculoskeletal: Denies arthralgias Integumentary/Breasts Skin/Breast: Denies rash Physical Exam General General appearance: alert and in no apparent distress Head Head exam: atraumatic, normocephalic and normal inspection Eye Eye exam: Present normal appearance; Absent PERRL or EOMI ENT ENT exam: Present mucous membranes moist and normal external ear exam Expanded ENT Exam TM/Canal exam: Bilateral TM: erythema, bulging and effusion Nose exam: Absent sinus tenderness Nasal speculum exam: Bilateral: normal Mouth exam: Present normal external inspection and other; Absent droolin
[2022-02-10 10:04] VITALS: BP 141/73; PULSE 79; RESP 20; TEMP 36.8; O2SAT 98
== END 2022-02-10 10:15 | disposition home or self-care (01) ==
PROVIDERS: Emergency Provider Nurse Practitioner Family; PCP Family Medicine
DX: H66.90 Otitis media, unspecified, unspecified ear (principal)
CPT/HCPCS: 99212; G0463

== ENCOUNTER 2022-02-12 02:36 | Emergency (ER) | payer BC, SELFPAY ==
[2022-02-12 02:47] LABS: Microscopic, Urine URINE MICROSCOPIC (MICROSCOPIC)
[2022-02-12 02:48] VITALS: BP 127/60; PULSE 87; RESP 18; TEMP 36.4; O2SAT 98; BMI 42.3
[2022-02-12 02:49] LABS: Appearance,Urine CLEAR (Clear); Bilirubin,Urine Negative (Negative); Blood, Urine Negative (Negative); Color,Urine YELLOW (Yellow); Glucose,Urine (UA) Negative (Negative); Ketones,Urine Negative (Negative); Leukocyte Esterase,Urine Negative (Negative); Nitrate,Urine Negative (Negative); Protein,Urine Negative (Negative); Specific Gravity, Urine >= 1.030 (1.005-1.030); Urobilinogen,Urine 0.2 EU/dl (0.2)
[2022-02-12 02:59] LABS: Bacteria,Urine 1+ /lpf; WBC,Urine Occasional #/hpf (0-3)
--- NOTE | 2022-02-12 03:24 | CT_ITS ---
PROCEDURE INFORMATION: Exam: CT Abdomen And Pelvis Without Contrast Exam date and time: 02/12/2022 3:27 AM Age: 21 years old Clinical indication: Abdominal pain; Additional info: Back pain, poss kidney stone TECHNIQUE: Imaging protocol: Computed tomography of the abdomen and pelvis without contrast. Radiation optimization: All CT scans at this facility use at least one of these dose optimization techniques: automated exposure control; mA and/or kV adjustment per patient size (includes targeted exams where dose is matched to clinical indication); or iterative reconstruction. COMPARISON: RUQ US RUQ-(ABD LTD)1ORGAN/QUAD/FU 07/27/2015 9:08 AM FINDINGS: Liver: Normal. No mass. Gallbladder and bile ducts: Possible sludge is seen in the gallbladder but no gallbladder wall thickening or pericholecystic fluid is seen. Pancreas: Normal. No ductal dilation. Spleen: Normal. No splenomegaly. Adrenal glands: Normal. No mass. Kidneys and ureters: Normal. No hydronephrosis. Stomach and bowel: Unremarkable. No obstruction. No mucosal thickening. Appendix: No evidence of appendicitis. Intraperitoneal space: Unremarkable. No free air. No significant fluid collection. Vasculature: Unremarkable. No abdominal aortic aneurysm. Lymph nodes: Unremarkable. No enlarged lymph nodes. Urinary bladder: Unremarkable as visualized. Reproductive: Unremarkable as visualized. Bones/joints: Unremarkable. No acute fracture. Soft tissues: Unremarkable. IMPRESSION: 1. No acute process noted. 2. Possible gallbladder stones sludge but no evidence of acute cholecystitis. Consider right upper quadrant ultrasound as clinically indicated.
[2022-02-12 03:43] LABS: Basophils # 0.1 K/mm3 (0-0.2); Basophils % 1.1 % (0.1-2.0); Eosinophils # 0.2 K/mm3 (0.0-0.4); Hematocrit 34.6 % (37.0-47.0); Hemoglobin 11.1 g/dL (12.2-16.2); Lymphocytes # 1.6 K/mm3 (0.7-4.5); Lymphocytes % 19.1 % (10-50); Mean Corpuscular Hemoglobin 24.5 pg (27.0-31.2); Mean Corpuscular Volume 76.6 fl (81-99); Mean Platelet Volume 8.9 fl (7.4-10.4); Monocytes # 0.3 K/mm3 (0.1-1.0); Monocytes % 4.1 % (1.7-9.3); Neutrophils # 6.1 K/mm3 (1.8-7.8); Neutrophils % 73.8 % (37.0-80.0); Platelet Count 248 K/mm3 (142-424); Red Blood Count 4.52 M/mm3 (4.20-5.40); Red Cell Distribution Width 16.3 % (11.5-17.5); White Blood Count 8.3 K/mm3 (4.8-10.8)
[2022-02-12 03:51] LABS: Alanine Aminotransferase 20 U/L (12-78); Albumin Level 3.5 g/dl (3.5-5.0); Albumin/Globulin Ratio 1.2 (1.1-1.8); Alkaline Phosphatase 92 U/L (38-126); Anion Gap 13.7 mEq/L (5-15); Aspartate Amino Transferase 36 U/L (14-36); Bilirubin,Total 0.2 mg/dl (0.2-1.3); Blood Urea Nitrogen 12 mg/dl (7-17); Calcium 8.3 mg/dl (8.4-10.2); Carbon Dioxide 25 mmol/L (22.0-30.0); Chloride 105 mmol/L (98-107); Creatinine Clearance Estimated 107 mL/min (50-200); Estimated Glomerular Filt Rate 79 ml/min (>60); GFR (African American) 96 ML/MIN (>60); Globulin 2.9 g/dL (1.3-3.2); Glucose 99 mg/dl (74-100); Potassium 3.7 mmoL/L (3.5-5.1); Sodium 140 mmol/L (136-145); Total Protein,Serum 6.4 g/dl (6.3-8.2)
--- NOTE | 2022-02-12 03:54 | HMH.EDGENADL ---
Discharge Plan Disposition Patient Disposition: Home, Self-Care Chief Complaint: PAIN Prescriptions Prescriptions: No Action nifedipine 30 mg tablet extended release 24hr 30 mg PO DAILY amoxicillin [amoxicillin] 500 mg tablet 500 mg PO TID 10 Days Qty: 30 0RF Referrals Follow up/Referrals: Uriel Bloom MD [Primary Care Provider] - See instructions Clinical Impressions Clinical Impression: Back pain Instructions Patient Instructions: DI for Acute Pain -- Adult Discharge ED Provider: Matthew Nunez General Adult HPI General Chief complaint: PAIN Stated complaint: mid/low back pain Time Seen by Provider: 02/12/22 03:55 Mode of Arrival: Ambulatory Source of Information: Patient and Medical Record Limitations: No Limitations Description of Symptoms (Recalled from ER Triage Doc. by RN): Pt states that she woke up 30 mins ago with severe back pain. States the pain is in the middle of her back and it radiates down her spine. Denies flank pain. Does report nausea. Pain is described as a pressure iwth throbbing. Denies injuries. Does report that she is one month (01/15) and had an epidural in that area. History of Present Illness HPI narrative: acute onset of mid-back pain this am w/o fever or rash and no trauma - no vag d/c - no abd pain Onset (ago): hour(s) Location: back Severity: moderate Quality: sharp Associated symptoms: denies other symptoms Treatments prior to arrival: none Related Data Home Medications Medication Instructions Recorded Confirmed nifedipine 30 mg tablet,extended 30 mg PO DAILY Hypertension 02/10/22 02/10/22 release 24 hr Previous Rx's Medication Instructions Recorded amoxicillin 500 mg tablet 500 mg PO TID 10 days #30 tabs 02/10/22 Allergies Allergy/AdvReac Type Severity Reaction Status Date / Time No Known Allergies Allergy Verified 02/01/22 10:17 PFSH PFS Medical History Anxiety Chronic hypertension Daytime somnolence Delivery by elective section Depression Gastroesophageal reflux disease Headache Hypertension Migraine Morbid obesity Other abnormal clinical finding Pre-eclampsia superimposed on chronic hypertension Surgical History History of delivery Social History Smoking Status: Never smoker alcohol intake: never substance use type: denies use current occupational status: employed Travel in the last 8 weeks: None household members: family housing: house ROS Obtained: Yes All systems reviewed & no additional complaints except as documented Physical Exam General General appearance: alert Head Head exam: normocephalic Eye Eye exam: Present PERRL and EOMI ENT ENT exam: Present mucous membranes moist Neck Neck exam: Present trachea midline Respiratory Respiratory exam: Present normal lung sounds bilaterally; Absent respiratory distress Cardiovascular Cardiovascular exam: Present regular rate Abdominal Exam Abdominal exam: Present soft; Absent tenderness Extremities Exam Extremities exam: Present full ROM; Absent calf tenderness Back Exam Back exam: Present tenderness; Absent CVA tenderness (R), CVA tenderness (L), vertebral tenderness, straight leg raise (R) or straight leg raise (L) Neurological Exam Neurological exam: Present alert, oriented X3 and CN II-XII intact; Absent motor sensory deficit Psychiatric Psychiatric exam: Present normal affect Skin Skin exam: Absent rash Medical Decision Making Medical Records Medical records reviewed: Yes I reviewed the patient's medical records. [place] Inquiry Pt receiving controlled substance: No Vital Signs: 02/12/22 02:48 Temperature 97.5 F L Temperature Source Oral Pulse Rate [Apical] 87 Respiratory Rate 18 Blood Pressure [Right Arm] 127/60 Blood Pressure Mean [Ri
[2022-02-12 03:56] LABS: C-Reactive Protein 22.9 mg/L (0-4)
[2022-02-12 04:08] LABS: Erythrocyte Sedimentation Rate 34 mm/hr (0-20)
[2022-02-12 04:09] LABS: Procalcitonin 0.051 ng/mL (0.0-2.0)
[2022-02-12 04:50] VITALS: BP 125/62; PULSE 80; RESP 16; TEMP 36.6; O2SAT 98
== END 2022-02-12 04:55 | disposition home or self-care (01) ==
PROVIDERS: Emergency Provider Emergency Medicine; PCP Family Medicine
DX: M54.9 Dorsalgia, unspecified (principal); Z79.899 Other long term (current) drug therapy; I10 Essential (primary) hypertension; F41.9 Anxiety disorder, unspecified; G47.00 Insomnia, unspecified; F32.A Depression, unspecified; K21.9 Gastro-esophageal reflux disease without esophagitis; G43.909 Migraine, unspecified, not intractable, without status migrainosus; E66.9 Obesity, unspecified; Z68.41 Body mass index [BMI] 40.0-44.9, adult
CPT/HCPCS: 74176; 80053; 81001; 84145; 85025; 85651; 86140; 99284

== ENCOUNTER → 2022-02-14 10:09 | Outpatient (CLI) | payer BC, SELFPAY ==
--- NOTE | 2022-02-14 10:23 | US_ITS ---
FINAL REPORT TECHNIQUE: Multiple transverse and longitudinal images CLINICAL HISTORY: RUQ PAIN FINDINGS: The gallbladder shows numerous tiny gallstones without evidence of acute gallbladder disease. No biliary ductal dilatation is appreciated. No fluid collections are seen. Limited portions of the right liver are fatty infiltrated. Limited portions of the right kidney are unremarkable. IMPRESSION: Numerous tiny gallstones without evidence of acute gallbladder disease. Reviewed, Interpreted and Dictated by Esmer Kay MD Transcribed by Aries Greer Authenticated and [facility]
== END ==
PROVIDERS: PCP Family Medicine; Visit Provider Physician Assistant
DX: R10.11 Right upper quadrant pain (principal)
CPT/HCPCS: 76705

== ENCOUNTER 2022-03-04 08:36 | Day surgery (SDC) | payer BC, SELFPAY ==
[2022-03-01 13:43] VITALS: BMI 40.8
[2022-03-04] VITALS (10 sets, daily range): BP systolic 122–144; BP diastolic 62–86; PULSE 64–82; RESP 12–18; TEMP 36.2–43; O2SAT 97–100
[2022-03-04 09:20] LABS: Basophils % 0.8 % (0.1-2.0); Eosinophils # 0.1 K/mm3 (0.0-0.4); Hematocrit 34.6 % (37.0-47.0); Hemoglobin 11.4 g/dL (12.2-16.2); Lymphocytes # 1.3 K/mm3 (0.7-4.5); Lymphocytes % 27.6 % (10-50); Mean Corpuscular HGB Conc 32.9 g/dL (31.8-35.4); Mean Corpuscular Volume 76.1 fl (81-99); Mean Platelet Volume 8.5 fl (7.4-10.4); Monocytes # 0.3 K/mm3 (0.1-1.0); Monocytes % 5.4 % (1.7-9.3); Neutrophils % 63.2 % (37.0-80.0); Platelet Count 285 K/mm3 (142-424); Red Blood Count 4.54 M/mm3 (4.20-5.40); Red Cell Distribution Width 16.8 % (11.5-17.5); White Blood Count 4.7 K/mm3 (4.8-10.8)
[2022-03-04 09:29] LABS: Urine Pregnancy, HCG Qual. Negative (Negative)
[2022-03-04 09:31] LABS: Chloride 105 mmol/L (98-107)
[2022-03-04 09:32] LABS: Potassium 4.2 mmoL/L (3.5-5.1); Sodium 141 mmol/L (136-145)
[2022-03-04 09:34] LABS: Alanine Aminotransferase 20 U/L (12-78); Alkaline Phosphatase 89 U/L (38-126); Aspartate Amino Transferase 34 U/L (14-36); Bilirubin,Total 0.5 mg/dl (0.2-1.3); Blood Urea Nitrogen 10 mg/dl (7-17); Creatinine Clearance Estimated 233 mL/min (50-200); Estimated Glomerular Filt Rate 91 ml/min (>60); GFR (African American) 110 ML/MIN (>60)
[2022-03-04 09:35] LABS: Albumin Level 4.1 g/dl (3.5-5.0); Albumin/Globulin Ratio 1.3 (1.1-1.8); Anion Gap 13.2 mEq/L (5-15); Calcium 8.7 mg/dl (8.4-10.2); Carbon Dioxide 27 mmol/L (22.0-30.0); Globulin 3.2 g/dL (1.3-3.2); Glucose 94 mg/dl (74-100); Total Protein,Serum 7.3 g/dl (6.3-8.2)
--- NOTE | 2022-03-04 12:49 | P.PN_ITS ---
[facility] Medical History Anxiety Chronic hypertension Daytime somnolence Delivery by elective section Depression Gallbladder disease Gastroesophageal reflux disease Headache History of COVID-19 Hypertension Migraine Morbid obesity Other abnormal clinical finding Pre-eclampsia superimposed on chronic hypertension Surgical History History of delivery Family History (Updated 03/04/22 @ 10:55 by Mila Britton, RN) Other Cancer Family history of myocardial infarction Social History (Updated 03/04/22 @ 10:56 by Mila Britton, RN) Smoking Status: Never smoker alcohol intake: never substance use type: denies use current occupational status: employed Travel in the last 8 weeks: None household members: family housing: house [facility] Anesthesia Checklist Patient Identification Patient Identification: Verbal (Name & ) Structural Data Admitted From: Home Planned Operative Procedure/s: lap mickey Consent for Planned Operative Procedure(s) Verified: Yes NPO Status Verified Time NPO: 00:00 Additional verifications Anesthesia Reactions: No Hx Blood Transfusions: No Blood Transfusion Reaction: No Airway Assessment C-Spine Mobility Assessed: Yes TMJ Mobility Assessed: Yes Dentition: Good Dentition Neurological Assessment Level of Consciousness: Awake, Alert and Appropriate Anesthesia Plan Anesthesia Risk discussed: Yes Anesthesia Plan: Verified ASA Class: II Anesthesia Type: General
--- NOTE | 2022-03-04 13:48 | EXP.OP.NOTE ---
Date of procedure: 03/04/22 Pre-op Diagnosis:: Symptomatic gallstones Post-op Diagnosis:: Same Procedure performed:: Laparoscopic cholecystectomy Surgeon:: Armaan Ortiz MD ANESTHESIOLOGIST/PHYSICIAN:: Hal Christie Anesthesia: GETA Estimated blood loss (mL): 20 Clinical Note:: Patient is a pleasant 21-year-old female referred by Nicci Baker for gallbladder. Patient had undergone on 01/15/2022 for preeclampsia. Retrospectively she does state that she has had some symptoms consistent with biliary colic during her . She thought this may be merely morning sickness. However she had very severe symptoms with pain in the right back radiating around to her right abdomen. She presented to the emergency department where she was seen and evaluated. She had CT scan which revealed no acute process with possible gallbladder stones but no definite evidence of acute cholecystitis. She was managed as an outpatient and underwent gallbladder ultrasound on 02/14/2022 which revealed numerous small gallstones. She has had some ongoing symptoms but not as severe as the attack which prompted ER evaluation. Patient was seen as a surgical consultation. The options were discussed with her. She wished to pursue cholecystectomy. Operative findings:: She had somewhat of a fatty liver. She had a distended gallbladder which was obscured with omental adhesions to the gallbladder and surrounding liver. There were small gallstones. Operative note:: Patient was taken to the operating room. She was given preoperative intravenous antibiotics. In the operating room she is placed in a supine position. General anesthesia was induced via endotracheal tube. Abdomen was prepped and draped in the standard surgical fashion. Subumbilical skin incision was made and while performing abdominal wall lift Veress needle was inserted. CO2 pneumoperitoneum was achieved to 15 mmHg. 11 mm optical trocar was inserted at the umbilicus. She was positioned in reverse Trendelenburg left side down. A couple of 5 mm trochars were inserted in the right upper abdomen. 10 mm trocar was inserted in the epigastrium. There were omental adhesions to the gallbladder and surrounding liver which obscured the gallbladder initially. These were carefully taken down using mostly SMILEY ultrasonic harmonic donald. Gallbladder was then identified and grasped retracted anteriorly over the dome of the liver. Further dissection was carried out ultimately clearing the neck of the gallbladder which was retracted anterolaterally. Prolonged dissection was carried out the neck of the gallbladder ultimately identifying and isolating the cystic duct and cystic artery. The cystic duct was isolated, multiply clipped, and sharply divided. Cystic artery was carefully coagulated with SMILEY ultrasonic harmonic donald and divided. Gallbladder was dissected free from the liver in a retrograde fashion using SMILEY ultrasonic harmonic donald. Gallbladder was placed within an Endo Catch retrieval device and removed from the peritoneal cavity via the umbilical trocar site. Gallbladder fossa was inspected for hemostasis which was assured. Gallbladder fossa and perihepatic space were irrigated and aspirated until clear. Fascia at the umbilicus was closed with the laparoscopic Neoclose device. Local anesthetic was infiltrated. Skin incisions were closed with 4-0 Monocryl in a subcuticular fashion. Steri-Strips and dressings were applied. Condition: stable Disposition: PACU Complications:: None immediately apparent
--- NOTE | 2022-03-04 13:54 | P.PNANES_ITS ---
[facility] Anesthesia Record Part I Anesthesia Record I Intake, IV Amount: 1,800 Estimated blood loss (mL): 0 Urine output (mL): 0 Blood Pressure: 122/86 SaO2: 97 Pulse Rate: 82 Respiratory Rate: 12 Temperature: 97.6 F Patient is:: Awake and Stable Stable to PACU at:: 13:50
--- NOTE | 2022-03-05 10:26 | EXP.ANES.II ---
[facility] Anesthesia Record Part II Anesthesia Record Part II Discharge Time: 14:20 Destination: Surgical Day Care (OP Surgery) PACU nurse assessment reviewed?: Yes Patient Condition:: Good Anesthesia Complications:: None Swallowing reflex intact?: Yes Cyanosis?: No Blood Pressure: 124/75 Pulse Rate: 66 Temperature: 98 F Mental Status: Alert & Oriented Pain level:: 0 Nausea and/or vomitting:: None Intake, IV Amount: 0
[2022-03-05 10:27] VITALS: BP 124/75; PULSE 66; TEMP 36.6
== END 2022-03-04 14:59 | disposition home or self-care (01) ==
PROVIDERS: PCP Family Medicine; Visit Provider Surgery
PROC: 0FT44ZZ Resection of Gallbladder, Percutaneous Endoscopic Approach (ICD-10-PCS; CPT 47562; principal; 2022-03-04 11:45)
DX: K80.10 Calculus of gallbladder with chronic cholecystitis without obstruction (principal)
CPT/HCPCS: 47562; 36415; 80053; 81025; 85025; 88304; 96374; J2405; J2710

== ENCOUNTER 2022-03-04 17:21 | Emergency (ER) | payer BC, SELFPAY ==
[2022-03-04 17:26] VITALS: BP 145/87; PULSE 93; RESP 16; TEMP 36.8; O2SAT 97; BMI 43.0
[2022-03-04 18:01] VITALS: BP 138/69; PULSE 94; RESP 20; O2SAT 98
--- NOTE | 2022-03-04 18:07 | HMH.EDGENADL ---
Discharge Plan Disposition Patient Disposition: Home, Self-Care Prescriptions Prescriptions: No Action hydrocodone-acetaminophen 5-325 mg Tablet 1 - 2 tab PO Q6H PRN (Reason: Pain) Qty: 17 0RF nifedipine 30 mg tablet extended release 24hr 30 mg PO DAILY Referrals Follow up/Referrals: Uriel Bloom MD [Primary Care Provider] - See instructions Activity Restrictions/Add. Instructions Additional Instructions/Restrictions: Please continue to monitor for worsening bleeding. Please return with any new or worsening symptoms. Clinical Impressions Clinical Impression: Post-op bleeding Instructions Patient Instructions: DI for Post-Surgical Bleeding Discharge ED Provider: Red Coffey General Adult HPI General Chief complaint: Skin/Abscess/Foreign Body Stated complaint: Had surgery this AM site now bleeding Time Seen by Provider: 03/04/22 18:00 Mode of Arrival: Ambulatory Source of Information: Patient Limitations: No Limitations Description of Symptoms (Recalled from ER Triage Doc. 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 Pt had lap gallbladder removal today by dr. daigle. Pt arrives to ED lap sites x4 with telfa/tegaderm dressing, umbilical dressing bloody, steri strips saturated with ss like drainage. No active bleeding noted. 2x2s placed in umbilical area. History of Present Illness HPI narrative: Patient is a 21-year-old female who just had a laparoscopic cholecystectomy today who presents with concern for bloody dressing. She states that she got home after her surgery and she noted that the umbilical lap site had started bleeding and had actually soaked through the entire dressing. She also complains of little bit of shoulder pain but that she expected this following her laparoscopic procedure. Denies any fever chills. Denies any chest pain. Denies any bleeding from other wounds. Related Data Home Medications Medication Instructions Recorded Confirmed nifedipine 30 mg tablet,extended 30 mg PO DAILY Hypertension 02/10/22 03/01/22 release 24 hr Previous Rx's Medication Instructions Recorded hydrocodone 5 mg-acetaminophen 325 1 - 2 tab PO Q6H PRN Pain #17 tabs 03/04/22 mg tablet Allergies Allergy/AdvReac Type Severity Reaction Status Date / Time No Known Allergies Allergy Verified 03/04/22 10:45 [facility] Medical History (Updated 03/04/22 @ 18:54 by Red Coffey MD) Anxiety Chronic hypertension Daytime somnolence Delivery by elective section Depression Gallbladder disease Gastroesophageal reflux disease Headache History of COVID-19 Hypertension Migraine Morbid obesity Other abnormal clinical finding Pre-eclampsia superimposed on chronic hypertension Surgical History History of delivery Family History (Updated 03/04/22 @ 10:55 by Mila Britton RN) Other Cancer Family history of myocardial infarction Social History (Updated 03/04/22 @ 10:56 by Mila Britton RN) Smoking Status: Never smoker alcohol intake: never substance use type: denies use current occupational status: employed Travel in the last 8 weeks: None household members: family housing: house ROS Obtained: Yes All systems reviewed & no additional complaints except as documented A 14 point review of system was obtained otherwise negative except per HPI Physical Exam General General appearance: alert Head Head exam: normocephalic Eye Eye exam: Present PERRL and EOMI ENT ENT exam: Present mucous membranes moist Neck Neck exam: Present trachea midline Respiratory Respiratory exam: Present normal lung sounds bilaterally; Absent respiratory distress Cardiovascular Cardiovascular exam: Present regular rate Abdominal Exam Abdominal exam: Present soft; Absent distention, tenderness or guarding Commen
[2022-03-04 18:36] LABS: Basophils % 0.2 % (0.1-2.0); Eosinophils % 0.1 % (0.1-12.0); Hematocrit 36.1 % (37.0-47.0); Hemoglobin 11.7 g/dL (12.2-16.2); Lymphocytes # 0.6 K/mm3 (0.7-4.5); Lymphocytes % 6.4 % (10-50); Mean Corpuscular HGB Conc 32.4 g/dL (31.8-35.4); Mean Corpuscular Hemoglobin 24.3 pg (27.0-31.2); Mean Corpuscular Volume 74.9 fl (81-99); Mean Platelet Volume 8.3 fl (7.4-10.4); Monocytes # 0.1 K/mm3 (0.1-1.0); Neutrophils # 8.6 K/mm3 (1.8-7.8); Neutrophils % 92.4 % (37.0-80.0); Platelet Count 280 K/mm3 (142-424); Red Blood Count 4.82 M/mm3 (4.20-5.40); Red Cell Distribution Width 16.6 % (11.5-17.5); White Blood Count 9.3 K/mm3 (4.8-10.8)
[2022-03-04 18:41] LABS: MANUAL DIFFERENTIAL MANUAL DIFFERENTIAL (MANUAL DIFF)
[2022-03-04 18:43] LABS: Chloride 104 mmol/L (98-107); Sodium 141 mmol/L (136-145)
[2022-03-04 18:46] LABS: Alanine Aminotransferase 40 U/L (12-78); Albumin Level 4.1 g/dl (3.5-5.0); Albumin/Globulin Ratio 1.3 (1.1-1.8); Alkaline Phosphatase 88 U/L (38-126); Aspartate Amino Transferase 58 U/L (14-36); Bilirubin,Total 0.3 mg/dl (0.2-1.3); Blood Urea Nitrogen 10 mg/dl (7-17); Calcium 8.7 mg/dl (8.4-10.2); Carbon Dioxide 24 mmol/L (22.0-30.0); Creatinine Clearance Estimated 120 mL/min (50-200); Estimated Glomerular Filt Rate 91 ml/min (>60); GFR (African American) 110 ML/MIN (>60); Globulin 3.1 g/dL (1.3-3.2); Glucose 156 mg/dl (74-100); Total Protein,Serum 7.2 g/dl (6.3-8.2)
--- NOTE | 2022-03-04 18:51 | PC.NURSE ---
report given to lucasrn
[2022-03-04 19:00] LABS: Lymphocytes % 9 % (10-50); Neutrophils % 91 % (42-76); Total Cells Counted 100
[2022-03-04 19:01] LABS: Ovalocytes 1+; Platelet Estimate Normal
--- NOTE | 2022-03-04 19:04 | PC.NURSE ---
Dr Coffey speaking with Dr Ortiz
[2022-03-04 19:12] VITALS: BP 132/76; PULSE 80; RESP 18; TEMP 36.8; O2SAT 96
== END 2022-03-04 19:15 | disposition home or self-care (01) ==
PROVIDERS: Emergency Provider Student in an Organized Health Care Education/Training Program; PCP Family Medicine
DX: K91.841 Postprocedural hemorrhage of a digestive system organ or structure following other procedure (principal); Y83.8 Other surgical procedures as the cause of abnormal reaction of the patient, or of later complication, without mention of misadventure at the time of the procedure; Y82.8 Other medical devices associated with adverse incidents; Z79.899 Other long term (current) drug therapy; I10 Essential (primary) hypertension; F41.9 Anxiety disorder, unspecified; F32.A Depression, unspecified; K21.9 Gastro-esophageal reflux disease without esophagitis; G43.909 Migraine, unspecified, not intractable, without status migrainosus
CPT/HCPCS: 80053; 85007; 85025; 99283

== ENCOUNTER 2022-07-16 16:45 | Emergency (ER) | payer BC, SELFPAY ==
[2022-07-16 17:25] VITALS: BP 168/82; PULSE 93; RESP 20; TEMP 37.1; O2SAT 96; BMI 47.3
--- NOTE | 2022-07-16 17:48 | XR_ITS ---
PROCEDURE INFORMATION: Exam: XR Right Foot Exam date and time: 07/16/2022 5:46 PM Age: 21 years old Clinical indication: Pain; Foot; Right TECHNIQUE: Imaging protocol: Radiologic exam of the right foot. Views: 3 or more views. COMPARISON: No relevant prior studies available. FINDINGS: Bones/joints: Normal. Soft tissues: Normal. IMPRESSION: No acute findings.
--- NOTE | 2022-07-16 17:51 | EXP.UTC ---
Discharge Plan Disposition Patient Disposition: Home, Self-Care Condition: Good Prescriptions Prescriptions: No Action ferrous sulfate 325 mg (65 mg iron) tablet 325 mg PO TID norethindrone (contraceptive) 0.35 mg tablet 0.35 mg PO DAILY Qty: 84 3RF Referrals Follow up/Referrals: Nicci Baker PA [Primary Care Provider] - See instructions Latoya Landry DPM [Staff Physician] - See instructions Activity Restrictions/Add. Instructions Additional Instructions/Restrictions: *weight bearing as tolerated *RICE, Rest the extremity, Ice 15-20 minutes 3-4 times daily, Compress- wear the claudio wrap as discussed as much as possible to help reduce swelling and pain, Elevate the extremity when at rest *Walking boot is for support and help control swelling, use it except in the shower. Be sure that is not to tight but not to loose either *Elevate when resting? *Ibuprofen 600-800mg every 6-8 hours as needed for pain an inflammation. If need something more can take Tylenol in between doses of Ibuprofen to help Immediately follow up with your family doctor for new or worsening of symptoms, or no noticeable improvement over the next 3-5 days Clinical Impressions Clinical Impression: Foot sprain Instructions Patient Instructions: How To Perform RICE (Rest, Ice, Compress, Elevate), DI for Foot Sprain, How to Use a Walking Boot Discharge ED Provider: Sylvia Barron [facility] General Stated complaint: right foot pain Mode of Arrival: Ambulatory Source of Information: Patient Limitations: No Limitations Time Seen by Provider: 07/16/22 17:51 Description of Symptoms (Recalled from Triage Doc. by RN): PATIENT C/O RIGHT FOOT PAIN SINCE FRIDAY. SHE STATES SHE WAS ON A SIDE BY SIDE AND FELT IT POP HEENT Symptoms (Recalled from RN notes): No Resp Symptoms (Recalled from RN notes): No Skin Symptoms (Recalled from RN notes): No MS Symptoms (Recalled from RN notes): Yes Functional Status (Recalled from RN notes): WNL History of Present Illness Provider Complaint: Patient states that she was on a side by side on Friday and she braced her foot and felt a pop in the top of her foot States that ever since she has been having pain in the top of her foot when she puts weight on it Related Data Home Medications Medication Instructions Recorded Confirmed ferrous sulfate 325 mg (65 mg 325 mg PO TID 07/10/22 07/10/22 iron) tablet Previous Rx's Medication Instructions Recorded norethindrone (contraceptive) 0.35 0.35 mg PO DAILY #84 tabs 07/10/22 mg tablet Allergies Allergy/AdvReac Type Severity Reaction Status Date / Time No Known Allergies Allergy Verified 07/10/22 14:47 Worker's Comp Is this a Worker's Comp case?: [facility] Disclaimer: The information contained in this section may have been updated after the patient was seen, as this information can be updated by other users. Medical History (Updated 07/16/22 @ 18:17 by Sylvia Barron APRN) Abnormal uterine bleeding Anxiety Chronic hypertension Daytime somnolence Delivery by elective section Depression Gallbladder disease Gastroesophageal reflux disease Headache History of COVID-19 Hypertension Iron deficiency Migraine Morbid obesity Other abnormal clinical finding Pre-eclampsia superimposed on chronic hypertension Surgical History History of delivery History of laparoscopic cholecystectomy Family History Other Cancer Family history of myocardial infarction Social History Smoking Status: Never smoker alcohol intake: never substance use type: denies use current occupational status: employed Travel in the last 8 weeks: None household members: family housing: house ROS Obtained: Yes All systems reviewed & no additional complaints except as do
[2022-07-16 18:13] VITALS: BP 168/82; PULSE 93; RESP 20; TEMP 37.1; O2SAT 96
== END 2022-07-16 18:20 | disposition home or self-care (01) ==
PROVIDERS: Emergency Provider Nurse Practitioner; PCP Physician Assistant
DX: S93.601A Unspecified sprain of right foot, initial encounter
CPT/HCPCS: 73630; 99212; 99213; G0463

== ENCOUNTER 2022-07-27 19:56 | Emergency (ER) | payer BC, SELFPAY ==
[2022-07-27 20:49] VITALS: BP 0/0; PULSE 0; RESP 0; TEMP -17.7; TEMP 0; O2SAT 0
== END 2022-07-27 20:49 | disposition left against medical advice (07) ==
LOC: ER 20:47
PROVIDERS: Emergency Provider Emergency Medicine; PCP Family Medicine
DX: Z53.21 Procedure and treatment not carried out due to patient leaving prior to being seen by health care provider (principal); R00.0 Tachycardia, unspecified
CPT/HCPCS: 99211

== ENCOUNTER → 2022-07-29 10:06 | Outpatient (CLI) | payer BC, SELFPAY ==
[2022-07-29 10:42] LABS: Basophils # 0.1 K/mm3 (0-0.2); Basophils % 0.8 % (0.1-2.0); Eosinophils # 0.1 K/mm3 (0.0-0.4); Eosinophils % 2.1 % (0.1-12.0); Hematocrit 36.6 % (37.0-47.0); Hemoglobin 11.9 g/dL (12.2-16.2); Lymphocytes # 1.2 K/mm3 (0.7-4.5); Mean Corpuscular HGB Conc 32.4 g/dL (31.8-35.4); Mean Corpuscular Hemoglobin 22.8 pg (27.0-31.2); Mean Corpuscular Volume 70.3 fl (81-99); Monocytes # 0.5 K/mm3 (0.1-1.0); Monocytes % 7.4 % (1.7-9.3); Neutrophils # 4.9 K/mm3 (1.8-7.8); Neutrophils % 71.8 % (37.0-80.0); Platelet Count 273 K/mm3 (142-424); Red Blood Count 5.21 M/mm3 (4.20-5.40); Red Cell Distribution Width 16.3 % (11.5-17.5); White Blood Count 6.9 K/mm3 (4.8-10.8)
== END ==
PROVIDERS: PCP Physician Assistant; Visit Provider Nurse Practitioner Family
DX: R11.2 Nausea with vomiting, unspecified (principal)
CPT/HCPCS: 36415; 85025

== ENCOUNTER 2022-08-07 12:28 | Outpatient (CLI) | payer BC, SELFPAY ==
[2022-08-07 12:40] VITALS: BP 124/74; PULSE 79; RESP 18; O2SAT 100
[2022-08-07 13:25] VITALS: BP 131/91; PULSE 85; RESP 18; O2SAT 100
== END 2022-08-07 13:25 | disposition home or self-care (01) ==
LOC: INF 12:28
PROVIDERS: PCP Physician Assistant; Visit Provider Obstetrics & Gynecology
DX: E61.1 Iron deficiency (principal)
CPT/HCPCS: 96365; J1756

== ENCOUNTER 2022-08-14 08:10 | Outpatient (CLI) | payer BC, SELFPAY ==
[2022-08-14 08:30] VITALS: BP 123/81; PULSE 83; RESP 16; O2SAT 99
[2022-08-14 09:00] VITALS: BP 123/68; PULSE 75; RESP 16
== END 2022-08-14 09:10 | disposition home or self-care (01) ==
LOC: INF 08:10
PROVIDERS: PCP Physician Assistant; Visit Provider Obstetrics & Gynecology
DX: E61.1 Iron deficiency (principal)
CPT/HCPCS: 96365; J1756

== ENCOUNTER → 2022-09-25 16:37 | Outpatient (CLI) | payer BC, SELFPAY ==
[2022-09-25 18:35] LABS: HCG,Quantitative < 2 mIU/ml (0-5.42)
[2022-09-27 12:30] LABS: Progesterone 1.1 ng/mL (.)
== END ==
PROVIDERS: Visit Provider Obstetrics & Gynecology
DX: Z32.01 Encounter for pregnancy test, result positive (principal)
CPT/HCPCS: 36415; 84144; 84702

== ENCOUNTER 2022-10-03 18:37 | Emergency (ER) | payer BC, SELFPAY ==
[2022-10-03 18:39] VITALS: BP 156/89; PULSE 109; RESP 18; TEMP 37.1; O2SAT 98; BMI 47.2
--- NOTE | 2022-10-03 18:55 | EXP.UTC ---
Discharge Plan Disposition Patient Disposition: Home, Self-Care Prescriptions Prescriptions: No Action ferrous sulfate 325 mg (65 mg iron) tablet 325 mg PO TID norethindrone (contraceptive) 0.35 mg tablet 0.35 mg PO DAILY Referrals Follow up/Referrals: Nicci Baker PA [Primary Care Provider] - See instructions Activity Restrictions/Add. Instructions Additional Instructions/Restrictions: Continue antibiotic today. Be sure to complete entire prescription even if feeling better Monitor temp. Tylenol every 4 hours as needed and / or ibuprofen every 6 hours as needed ( As long as your primary care physician has told you that it ok to take both. For fever/aches/pains ER if no less than 101 despite Tylenol or Motrin Humidifier/vaporizer or hot steamy shower Inhaler every 4-6 hours as needed like we discussed. If unsure how to use it, ask pharmacist to demonstrate how. Should help open airways and improve cough, wheezing, and shortness of breath Mucinex during the day for your cough and cough suppressant only at night. Be sure to drink lots of water. *Continue steroid . Helps with inflammation therefore, cough and wheezing. Follow directions on the package. Reviewed side effects. Patient reports taking them before. Follow up IMMEDIATELY for new or worsening of symptoms OR no noticeable improvement over the next 48-72 hours. 911 immediately for any life threatening symptoms such as chest pain or difficulty breathing You were tested for today for COVID19 your test result should be back in the next 24-48 hours, you may check your results on the [facility] Clinical Impressions Clinical Impression: Bronchitis Instructions Patient Instructions: Acute Bronchitis Discharge ED Provider: Sylvia Barron [facility] [place] General Stated complaint: SOB congestion cough Mode of Arrival: Ambulatory Source of Information: Patient Limitations: No Limitations Time Seen by Provider: 10/03/22 18:55 Description of Symptoms (Recalled from Triage Doc. by RN): Patient reports that she was diagnosed with bronchitis and states that she is not feeling any better. Complaints of wheezing and cough. HEENT Symptoms (Recalled from RN notes): Yes Resp Symptoms (Recalled from RN notes): Yes Skin Symptoms (Recalled from RN notes): No MS Symptoms (Recalled from RN notes): No Functional Status (Recalled from RN notes): wnl History of Present Illness Provider Complaint: Patient state that she was dx with bronchitis and started on antibiotics yesterday States that her PCP office checked her for flu and did CBC and it showed bacterial States that today her chest is burning with cough and she isnt feeling any better and wheezing at times so she came in to get checked Related Data Home Medications Medication Instructions Recorded Confirmed ferrous sulfate 325 mg (65 mg 325 mg PO TID Supplement 07/10/22 08/14/22 iron) tablet norethindrone (contraceptive) 0.35 0.35 mg PO DAILY control 08/14/22 08/14/22 mg tablet Allergies Allergy/AdvReac Type Severity Reaction Status Date / Time No Known Allergies Allergy Verified 07/10/22 14:47 Worker's Comp Is this a Worker's Comp case?: No [facility] Disclaimer: The information contained in this section may have been updated after the patient was seen, as this information can be updated by other users. Medical History (Updated 10/03/22 @ 20:01 by Sylvia Barron APRN) Abnormal uterine bleeding Anxiety Chronic hypertension Daytime somnolence Delivery by elective section Depression Gallbladder disease Gastroesophageal reflux disease Headache History of COVID-19 Hypertension Iron deficiency Migraine Morbid obesity Other abnormal clinical finding Pre-eclampsia superimposed on chronic hypertension Surgical History History of delivery History of laparoscopic ch
--- NOTE | 2022-10-03 19:04 | XR_ITS ---
PROCEDURE INFORMATION: Exam: XR Chest Exam date and time: 10/03/2022 7:03 PM Age: 21 years old Clinical indication: Cough; Additional info: Cough/congestion TECHNIQUE: Imaging protocol: Radiologic exam of the chest. Views: 2 views. COMPARISON: CR XR CHEST PORTABLE 02/22/2021 8:55 PM FINDINGS: Lungs: Central opacities with peribronchial cuffing, seen to advantage on the lateral chest radiograph suggest viral process versus reactive airways without convincing consolidation. Pleural spaces: Unremarkable. No pleural effusion. No pneumothorax. Heart/Mediastinum: Unremarkable. No cardiomegaly. Bones/joints: Unremarkable. IMPRESSION: Central opacities with peribronchial cuffing, seen to advantage on the lateral chest radiograph suggest viral process versus reactive airways without convincing consolidation.
[2022-10-03 19:09] LABS: UTC Pregnancy Test, Urine Negative (Negative)
[2022-10-03 20:02] VITALS: BP 156/89; PULSE 109; RESP 18; TEMP 37.1
[2022-10-03 20:09] LABS: Adenovirus,PCR Not Detected (NotDetected); Bordetella Pertussis Not Detected (NotDetected); Chlamydophila Pneumoniae, PCR Not Detected (NotDetected); Coronavirus 19, PCR Not Detected (NotDetected); Coronavirus 229E Not Detected (NotDetected); Coronavirus NL63 Not Detected (NotDetected); Coronavirus OC43 Not Detected (NotDetected); Coronovirus HKU1,PCR Not Detected (NotDetected); Human Metapneumovirus Not Detected (NotDetected); Influenza A, PCR Not Detected (NotDetected); Influenza AH1, 2009 Not Detected (NotDetected); Influenza AH1, PCR Not Detected (NotDetected); Influenza AH3,PCR Not Detected (NotDetected); Influenza B, PCR Not Detected (NotDetected); Mycoplasma Pneumoniae, PCR Not Detected (NotDetected); Parainfluenza 1, PCR Not Detected (NotDetected); Parainfluenza 2, PCR Not Detected (NotDetected); Parainfluenza 3, PCR Not Detected (NotDetected); Parainfluenza 4, PCR Not Detected (NotDetected); Respiratory Syncytial Virus Not Detected (NotDetected)
[2022-10-03 21:46] LABS: Rhinovirus/Enterovirus Detected (NotDetected)
== END 2022-10-03 20:08 | disposition home or self-care (01) ==
PROVIDERS: Emergency Provider Nurse Practitioner; PCP Physician Assistant
DX: J20.9 Acute bronchitis, unspecified (principal); R06.02 Shortness of breath; K21.9 Gastro-esophageal reflux disease without esophagitis; I10 Essential (primary) hypertension; E66.01 Morbid (severe) obesity due to excess calories
CPT/HCPCS: 71046; 81025; 87581; 87632; 87798; 99212; 99213; 99214; C9803; G0463; U0003; U0005

== ENCOUNTER → 2022-10-11 12:17 | Outpatient (CLI) | payer BC, SELFPAY ==
[2022-10-11 14:30] LABS: HCG,Quantitative 177 mIU/ml (0-5.42)
[2022-10-13 06:47] LABS: Progesterone 7.6 ng/mL (.)
== END ==
PROVIDERS: Visit Provider Obstetrics & Gynecology
DX: N92.6 Irregular menstruation, unspecified (principal); Z32.00 Encounter for pregnancy test, result unknown
CPT/HCPCS: 36415; 84144; 84702

== ENCOUNTER → 2022-10-13 14:54 | Outpatient (CLI) | payer BC, SELFPAY ==
[2022-10-13 15:58] LABS: HCG,Quantitative 478 mIU/ml (0-5.42)
== END ==
PROVIDERS: Visit Provider Obstetrics & Gynecology
DX: Z34.90 Encounter for supervision of normal pregnancy, unspecified, unspecified trimester (principal)
CPT/HCPCS: 36415; 84702

== ENCOUNTER → 2022-11-07 23:33 | Outpatient (CLI) | payer BC, SELFPAY | PROVIDERS: Visit Provider Obstetrics & Gynecology | DX: Z34.91 Encounter for supervision of normal pregnancy, unspecified, first trimester (principal); Z3A.08 8 weeks gestation of pregnancy; B96.1 Klebsiella pneumoniae [K. pneumoniae] as the cause of diseases classified elsewhere | CPT/HCPCS: 87086; 87088; 87186 ==

== ENCOUNTER → 2022-12-09 16:43 | Outpatient (CLI) | payer BC, SELFPAY ==
[2022-12-09 18:13] LABS: Basophils % 0.3 % (0.1-2.0); Eosinophils # 0.2 K/mm3 (0.0-0.4); Eosinophils % 2.5 % (0.1-12.0); Hemoglobin 12.2 g/dL (12.2-16.2); Lymphocytes # 1.7 K/mm3 (0.7-4.5); Lymphocytes % 26.6 % (10-50); Mean Corpuscular HGB Conc 32.1 g/dL (31.8-35.4); Mean Corpuscular Hemoglobin 24.5 pg (27.0-31.2); Mean Corpuscular Volume 76.2 fl (81-99); Mean Platelet Volume 9.3 fl (7.4-10.4); Monocytes # 0.3 K/mm3 (0.1-1.0); Monocytes % 4.4 % (1.7-9.3); Neutrophils # 4.3 K/mm3 (1.8-7.8); Neutrophils % 66.2 % (37.0-80.0); Platelet Count 232 K/mm3 (142-424); Red Blood Count 4.98 M/mm3 (4.20-5.40); Red Cell Distribution Width 16.6 % (11.5-17.5); White Blood Count 6.4 K/mm3 (4.8-10.8)
[2022-12-11 12:09] LABS: HIV Screen 4th Generation wRfx Non Reactive (Non Reactive); HSV 1 IgG, Type Spec <0.91 index (0.00-0.90); HSV 2 IgG, Type Spec <0.91 index (0.00-0.90)
[2022-12-11 13:15] LABS: Rubella Antibodies, IgG 0.97 index (Immune >0.99)
[2022-12-29 13:13] LABS: Hepatitis B Surface Antigen Negative; Hepatitis C Antibody Non Reactive
[2022-12-29 13:14] LABS: Rapid Plasma Reagin Ab Titer Non Reactive
== END ==
PROVIDERS: PCP Physician Assistant; Visit Provider Obstetrics & Gynecology
DX: Z34.91 Encounter for supervision of normal pregnancy, unspecified, first trimester (principal); Z3A.12 12 weeks gestation of pregnancy
CPT/HCPCS: 36415; 85025; 86593; 86695; 86703; 86762; 86790; 86850; 87340; 87380; G0432

== ENCOUNTER → 2023-01-08 15:17 | Outpatient (CLI) | payer BC, SELFPAY ==
--- NOTE | 2023-01-08 15:20 | XR_ITS ---
FINAL REPORT CLINICAL HISTORY: RT FOOT PAIN COMPARISON: 07/16/2022 FINDINGS: RIGHT FOOT 3 views of the right foot were obtained. There is no acute fracture or dislocation. Accessory navicular is noted. Visualized joint spaces are normally aligned. Soft tissues are unremarkable. IMPRESSION: No acute bony abnormality. Reviewed, Interpreted and Dictated by Evens Rocha MD Transcribed by Jacqueline Oliver Authenticated and [facility]
== END ==
PROVIDERS: PCP Physician Assistant; Visit Provider Physician Assistant
DX: M79.671 Pain in right foot (principal)
CPT/HCPCS: 73630

== ENCOUNTER → 2023-01-30 07:52 | Outpatient (CLI) | payer BC, SELFPAY ==
--- NOTE | 2023-01-30 07:53 | US_ITS ---
PROCEDURE: US OB /MATERNAL DETAIL CLINICAL INDICATION: 20 week anatomy scan COMPARISON: No exams were available for comparison FINDINGS: Transabdominal sonographic images of the uterus were obtained. From her established due date she is 20 weeks 4 days. Single viable intrauterine gestation. Breech position. Placenta: Anteriorplacenta grade 1. There is average amount fluid. The cervix appears satisfactory. Closed and measuring 3.3 cm in length. Complete survey performed and was unremarkable on the submitted images as in PACS. No discrete anomalies identified on survey imaging by technologist. Active fetus. Three-vessel cord with satisfactory umbilical cord insertion. 4- chamber heart noted. Situs, aortic arch, LVOT appear normal. Survey of brain & ventricles Unremarkable. Cerebellum, thalamus, cisterna magna, choroid plexus appear normal. Face and neck survey unremarkable. Profile and nasion, lips and nose appear normal. Diaphragm and chest views unremarkable. Abdomen: Both kidneys noted and unremarkable. Stomach and bladder noted and satisfactory. Spine: Survey of the spine satisfactory with no anomalies identified nor imaged. Upper, thoracic and lower spine appears normal. Both arms and legs noted. Amniotic Fluid: Adequate. Measurements: Average ultrasound age 20weeks 6days. Estimated due date by ultrasound age 0106/13/2023. Estimated weight 355g BPD = 21weeks 0 days HC = 21weeks 2days AC = 20weeks 3days FL = 20weeks 3days Growth Percentile= 39 Heart Rate = 142bpm Cerebellum = 21weeks 1day Humerus = 20weeks HC/AC is 1.26 FL/BPD is 0.67 FL/AC is 0.22 IMPRESSION: 1. Viable fetus in the breech presentation with an anterior placenta grade 1. 2. The fluid is within normal limits. 3. Difficult exam secondary to maternal body habitus. 4. Anatomical scan appears normal. 5. The size and dates are congruent. Dictated by: Donnie Oliver MD 01/30/2023 10:34 Donnie Oliver MD in [place] 01/30/2023 10:34
== END ==
LOC: RAD 07:53
PROVIDERS: PCP Physician Assistant; Visit Provider Obstetrics & Gynecology
DX: Z34.92 Encounter for supervision of normal pregnancy, unspecified, second trimester (principal); Z3A.20 20 weeks gestation of pregnancy
CPT/HCPCS: 76811

== ENCOUNTER 2023-03-04 17:13 | Outpatient (CLI) | payer BC, SELFPAY ==
[2023-03-04 17:37] VITALS: BP 120/70; PULSE 85; RESP 18; TEMP 36.8; O2SAT 100
--- NOTE | 2023-03-04 18:49 | PC.NURSE ---
1848: IV REMOVED WITH CATHETER INTACT. PT TOLERATED WELL.
[2023-03-04 18:50] VITALS: BP 118/69; PULSE 82; RESP 18; TEMP 36.8; O2SAT 99
== END 2023-03-04 18:50 | disposition home or self-care (01) ==
LOC: OBOUT 17:16 → INF 17:25
PROVIDERS: PCP Physician Assistant; Visit Provider Obstetrics & Gynecology
DX: Z34.91 Encounter for supervision of normal pregnancy, unspecified, first trimester; Z3A.25 25 weeks gestation of pregnancy; Z45.2 Encounter for adjustment and management of vascular access device
CPT/HCPCS: G0463

== ENCOUNTER 2023-03-09 16:19 | Outpatient (CLI) | payer BC, SELFPAY ==
[2023-03-09 16:53] VITALS: BMI 45.9
[2023-03-09 16:58] LABS: Microscopic, Urine URINE MICROSCOPIC (MICROSCOPIC)
[2023-03-09 17:00] VITALS: BP 134/75; PULSE 111; RESP 28; TEMP 36.9; O2SAT 96; BMI 45.9
[2023-03-09 17:05] LABS: Appearance,Urine CLEAR (Clear); Blood, Urine Negative (Negative); Color,Urine DARK YELLOW (Yellow); Glucose,Urine (UA) Negative (Negative); Ketones,Urine TRACE (Negative); Leukocyte Esterase,Urine Negative (Negative); Nitrate,Urine Negative (Negative); Protein,Urine TRACE (Negative); Specific Gravity, Urine >= 1.030 (1.005-1.030)
[2023-03-09 17:06] LABS: Bilirubin,Urine 1+ (Negative)
[2023-03-09 17:17] LABS: Barbiturates Screen,Urine Negative ng/ml (<200)
[2023-03-09 17:18] LABS: Amphetamine/Metha Screen,Urine Negative ng/ml (<1000); Benzodiazepines Screen,Urine Negative ng/ml (<200)
[2023-03-09 17:19] LABS: Cannabinoid Screen,Urine Negative ng/ml (<50)
[2023-03-09 17:20] LABS: Cocaine Screen,Urine Negative ng/ml (<300); Methadone Screen,Urine Negative ng/ml (<300)
[2023-03-09 17:21] LABS: Opiate Screen,Urine Negative ng/ml (<300)
[2023-03-09 17:22] LABS: Phencyclidine Screen,Urine Negative ng/ml (<25)
[2023-03-09 17:31] LABS: Bacteria,Urine Trace /lpf; RBC,Urine Occasional #/hpf (0-3); WBC,Urine Occasional #/hpf (0-3)
[2023-03-09 20:19] VITALS: BP 130/82; PULSE 85; RESP 22; TEMP 36.6; O2SAT 96
== END 2023-03-09 20:28 | disposition home or self-care (01) ==
LOC: OBOUT 16:25 → OB 16:28
PROVIDERS: PCP Physician Assistant; Visit Provider Obstetrics & Gynecology
DX: O26.892 Other specified pregnancy related conditions, second trimester (principal); Z3A.26 26 weeks gestation of pregnancy; E86.0 Dehydration; R53.1 Weakness
CPT/HCPCS: 80305; 81001; 96365; G0463

== ENCOUNTER → 2023-03-10 08:22 | Outpatient (CLI) | payer BC, SELFPAY ==
[2023-03-10 08:58] LABS: Glucose,Fasting 94 mg/dl (74-100)
[2023-03-10 09:11] LABS: Basophils % 0.3 % (0.1-2.0); Eosinophils # 0.1 K/mm3 (0.0-0.4); Eosinophils % 0.6 % (0.1-12.0); Hematocrit 34.8 % (37.0-47.0); Hemoglobin 12.2 g/dL (12.2-16.2); Lymphocytes # 1.5 K/mm3 (0.7-4.5); Lymphocytes % 20.3 % (10-50); Mean Corpuscular HGB Conc 35.1 g/dL (31.8-35.4); Mean Corpuscular Hemoglobin 28.3 pg (27.0-31.2); Mean Corpuscular Volume 80.7 fl (81-99); Mean Platelet Volume 8.4 fl (7.4-10.4); Monocytes # 0.3 K/mm3 (0.1-1.0); Monocytes % 4.5 % (1.7-9.3); Neutrophils # 5.6 K/mm3 (1.8-7.8); Neutrophils % 74.3 % (37.0-80.0); Platelet Count 209 K/mm3 (142-424); Red Blood Count 4.32 M/mm3 (4.20-5.40); Red Cell Distribution Width 16.2 % (11.5-17.5); White Blood Count 7.6 K/mm3 (4.8-10.8)
[2023-03-10 10:12] LABS: Glucose 1 Hour 110 mg/dL (74-100)
== END ==
PROVIDERS: PCP Physician Assistant; Visit Provider Obstetrics & Gynecology
DX: O10.912 Unspecified pre-existing hypertension complicating pregnancy, second trimester (principal); Z3A.25 25 weeks gestation of pregnancy; R73.09 Other abnormal glucose
CPT/HCPCS: 36415; 82951; 85025

== ENCOUNTER → 2023-03-12 09:18 | Outpatient (CLI) | payer BC, SELFPAY ==
[2023-03-12 10:30] LABS: Alanine Aminotransferase 12 U/L (12-78); Albumin Level 3.3 g/dl (3.5-5.0); Albumin/Globulin Ratio 1.1 (1.1-1.8); Alkaline Phosphatase 58 U/L (38-126); Anion Gap 11.1 mEq/L (5-15); Aspartate Amino Transferase 16 U/L (14-36); Bilirubin,Total 0.2 mg/dl (0.2-1.3); Blood Urea Nitrogen 5 mg/dl (7-17); Calcium 8.8 mg/dl (8.4-10.2); Carbon Dioxide 22 mmol/L (22.0-30.0); Chloride 108 mmol/L (98-107); Estimated Glomerular Filt Rate 154 ml/min (>60); GFR (African American) 187 ML/MIN (>60); Globulin 2.9 g/dL (1.3-3.2); Glucose 101 mg/dl (74-100); Potassium 4.1 mmoL/L (3.5-5.1); Sodium 137 mmol/L (136-145); Total Protein,Serum 6.2 g/dl (6.3-8.2)
== END ==
PROVIDERS: PCP Physician Assistant; Visit Provider Physician Assistant
DX: E86.0 Dehydration (principal)
CPT/HCPCS: 80053

== ENCOUNTER 2023-04-07 11:39 | Outpatient (CLI) | payer BC, SELFPAY ==
[2023-04-07 11:49] VITALS: BMI 46.3
[2023-04-07 12:00] LABS: Microscopic, Urine URINE MICROSCOPIC (MICROSCOPIC)
[2023-04-07 12:03] VITALS: BP 134/81; PULSE 115; RESP 22; TEMP 37.2; O2SAT 97; BMI 46.3
[2023-04-07 12:21] LABS: Appearance,Urine CLEAR (Clear); Bilirubin,Urine Negative (Negative); Blood, Urine Negative (Negative); Color,Urine YELLOW (Yellow); Glucose,Urine (UA) Negative (Negative); Ketones,Urine Negative (Negative); Leukocyte Esterase,Urine Negative (Negative); Nitrate,Urine Negative (Negative); PH,Urine 6.5 (5.0-8.5); Protein,Urine Negative (Negative); Urobilinogen,Urine 0.2 EU/dl (0.2)
[2023-04-07 12:52] LABS: Bacteria,Urine 1+ /lpf
[2023-04-07 15:19] LABS: Amphetamine/Metha Screen,Urine Negative ng/ml (<1000); Benzodiazepines Screen,Urine Negative ng/ml (<200)
[2023-04-07 15:20] LABS: Barbiturates Screen,Urine Negative ng/ml (<200)
[2023-04-07 15:21] LABS: Cannabinoid Screen,Urine Negative ng/ml (<50); Cocaine Screen,Urine Negative ng/ml (<300)
[2023-04-07 15:22] LABS: Methadone Screen,Urine Negative ng/ml (<300)
[2023-04-07 15:23] LABS: Opiate Screen,Urine Negative ng/ml (<300); Phencyclidine Screen,Urine Negative ng/ml (<25)
== END 2023-04-07 13:09 | disposition home or self-care (01) ==
LOC: OBOUT 11:41 → OB 11:42
PROVIDERS: PCP Physician Assistant; Visit Provider Obstetrics & Gynecology
DX: O26.893 Other specified pregnancy related conditions, third trimester (principal); Z3A.30 30 weeks gestation of pregnancy; M54.50 Low back pain, unspecified
CPT/HCPCS: 59025; 80305; 81001; 87086; G0463

== ENCOUNTER 2023-04-07 20:41 | Outpatient (CLI) | payer BC, SELFPAY ==
[2023-04-07 20:52] VITALS: BMI 46.3
--- NOTE | 2023-04-07 20:53 | US_ITS ---
PROCEDURE INFORMATION: Exam: US , Transvaginal Exam date and time: 04/07/2023 9:22 PM Age: 22 years old Clinical indication: Lmp or gestational age (in weeks): 30w1d; Antepartum complications; Premature rupture of membranes; ; Patient HX: Cevical length only; Additional info: Cervical length LABS AND CLINICAL REPORTS: Gestational age (Established): 30 w 1 d Estimated due date (Established): 06/15/2023 TECHNIQUE: Imaging protocol: Real-time transvaginal obstetrical ultrasound of the maternal pelvis with image documentation. Transvaginal imaging was used for better evaluation of the fetus, adnexa, and/or cervix. Total images: 380 COMPARISON: US OB /MATERNAL DETAIL 01/30/2023 7:59 AM FINDINGS: Gestation: Intrauterine gestation in cephalic presentation, not specifically evaluated. MATERNAL: Cervix: Cervical length measures 3.46 cm. Closed cervical os. IMPRESSION: Closed cervix measuring 3.46 cm in length on dedicated transvaginal imaging.
[2023-04-07 21:15] VITALS: BP 139/77; PULSE 88; RESP 21; TEMP 37.1; O2SAT 100; BMI 46.3
[2023-04-07 21:20] LABS: Amphetamine/Metha Screen,Urine Negative ng/ml (<1000)
[2023-04-07 21:21] LABS: Barbiturates Screen,Urine Negative ng/ml (<200)
[2023-04-07 21:22] LABS: Benzodiazepines Screen,Urine Negative ng/ml (<200); Cannabinoid Screen,Urine Negative ng/ml (<50)
[2023-04-07 21:23] LABS: Cocaine Screen,Urine Negative ng/ml (<300)
[2023-04-07 21:27] LABS: Methadone Screen,Urine Negative ng/ml (<300)
[2023-04-07 21:32] LABS: Opiate Screen,Urine Negative ng/ml (<300)
[2023-04-07 21:49] LABS: Fetal Fibronectin (Rapid) Negative (Negative)
[2023-04-07 21:51] LABS: Phencyclidine Screen,Urine Negative ng/ml (<25)
== END 2023-04-07 22:00 | disposition home or self-care (01) ==
LOC: OBOUT 20:41 → OB 20:42
PROVIDERS: PCP Physician Assistant; Visit Provider Obstetrics & Gynecology
DX: O47.03 False labor before 37 completed weeks of gestation, third trimester (principal); Z3A.30 30 weeks gestation of pregnancy
CPT/HCPCS: 59025; 76817; 80305; 82731; G0463

== ENCOUNTER → 2023-04-21 12:41 | Outpatient (CLI) | payer BC, SELFPAY ==
--- NOTE | 2023-04-21 12:42 | US_ITS ---
PROCEDURE: US OB BIOPHYSICAL PROFILE CLINICAL INDICATION: Growth/BPP/JONG COMPARISON: FINDINGS: Transabdominal sonographic images of the uterus were obtained. From her established due date she is 32weeks 1day. The following parameters are obtained: Viable fetus in the breech presentation with an anterior placenta grade 2 Average ultrasound age is 33weeks 2days. Estimated due date by ultrasound is 06/07/2023. Estimated weight is 4lb 6oz, 2006 grams. Cervix measures 4.1 cm. heart rate: 133bpm bpm. BPD: 33 weeks 3 days HC: 34 weeks 4 days AC: 32 weeks 2 days FL: 32 weeks 3 days HC/AC: 1.1 FL/BPD: 0.75 FL/AC: 0.22 54 percentile Amniotic fluid index: 13.87cm, MVP 6.97 cm. Qualitative AFV: 2 breathing movements: 2 Gross body movements: 2 Tone: 2 Biophysical profile score: 8 No obvious anomalies evident.Kidneys, stomach, bladder, 4 chamber heart, three-vessel cord appear normal. IMPRESSION: 1. Viable fetus in the breech presentation with an anterior placenta grade 2. 2. Fluid is within normal limits with an amniotic fluid index of 13.87 cm. MVP is 6.97 cm. 3. Biophysical profile is 8/8 with good breathing movement seen. 4. There has been good interval growth with the fetus currently 54 percentile. Dictated by: Donnie Oliver MD 04/22/2023 13:19 Donnie Oliver MD in [facility] 04/22/2023 13:19
== END ==
LOC: RAD 12:42
PROVIDERS: PCP Physician Assistant; Visit Provider Obstetrics & Gynecology
DX: O36.63X0 Maternal care for excessive fetal growth, third trimester, not applicable or unspecified (principal); Z3A.32 32 weeks gestation of pregnancy
CPT/HCPCS: 76816; 76819

== ENCOUNTER 2023-05-05 16:45 | Outpatient (CLI) | payer BC, SELFPAY ==
[2023-05-05 16:50] VITALS: BP 119/73; PULSE 100; RESP 18; TEMP 36.6; O2SAT 99
[2023-05-05 17:10] VITALS: BMI 46.5
[2023-05-05 17:14] LABS: Microscopic, Urine URINE MICROSCOPIC (MICROSCOPIC)
[2023-05-05 17:15] VITALS: BP 113/60; PULSE 80; RESP 18; BMI 46.5
[2023-05-05 17:21] LABS: Appearance,Urine CLEAR (Clear); Bilirubin,Urine Negative (Negative); Blood, Urine Negative (Negative); Color,Urine YELLOW (Yellow); Glucose,Urine (UA) Negative (Negative); Ketones,Urine Negative (Negative); Leukocyte Esterase,Urine Negative (Negative); Nitrate,Urine Negative (Negative); Protein,Urine Negative (Negative); Specific Gravity, Urine 1.015 (1.005-1.030)
[2023-05-05 17:33] LABS: Barbiturates Screen,Urine Negative ng/ml (<200)
[2023-05-05 17:34] LABS: Benzodiazepines Screen,Urine Negative ng/ml (<200)
[2023-05-05 17:35] LABS: Amphetamine/Metha Screen,Urine Negative ng/ml (<1000); Bacteria,Urine Trace /lpf; Methadone Screen,Urine Negative ng/ml (<300); WBC,Urine Occasional #/hpf (0-3)
[2023-05-05 17:36] LABS: Cannabinoid Screen,Urine Negative ng/ml (<50); Cocaine Screen,Urine Negative ng/ml (<300)
[2023-05-05 17:37] LABS: Opiate Screen,Urine Negative ng/ml (<300)
[2023-05-05 17:38] LABS: Phencyclidine Screen,Urine Negative ng/ml (<25)
[2023-05-05 17:40] LABS: POC Glucose,Bedside 81 (70-110)
== END 2023-05-05 18:04 | disposition home or self-care (01) ==
LOC: OBOUT 16:46 → OB 16:48
PROVIDERS: PCP Physician Assistant; Visit Provider Obstetrics & Gynecology
DX: O26.893 Other specified pregnancy related conditions, third trimester (principal); Z3A.35 35 weeks gestation of pregnancy; O99.810 Abnormal glucose complicating pregnancy; O26.53 Maternal hypotension syndrome, third trimester
CPT/HCPCS: 59025; 80305; 81001; 82962

== ENCOUNTER 2023-05-20 17:30 | Outpatient (CLI) | payer BC, SELFPAY ==
[2023-05-20 17:33] VITALS: BP 121/77; PULSE 100; RESP 18; TEMP 36.8; O2SAT 98; BMI 46.5
== END 2023-05-20 18:28 | disposition home or self-care (01) ==
LOC: OBOUT 17:31 → OB 17:32
PROVIDERS: PCP Physician Assistant; Visit Provider Obstetrics & Gynecology
DX: O26.893 Other specified pregnancy related conditions, third trimester (principal); Z3A.35 35 weeks gestation of pregnancy
CPT/HCPCS: G0463

== ENCOUNTER 2023-05-21 08:34 | Outpatient (CLI) | payer BC, SELFPAY ==
[2023-05-21 08:45] VITALS: BMI 50.8
[2023-05-21 08:50] VITALS: BP 135/80; PULSE 110; RESP 20; TEMP 37.1; O2SAT 97; BMI 50.8
[2023-05-21 09:49] LABS: Microscopic, Urine URINE MICROSCOPIC (MICROSCOPIC)
[2023-05-21 09:49] LABS: Alanine Aminotransferase 13 U/L (12-78); Albumin Level 3.4 g/dl (3.5-5.0); Albumin/Globulin Ratio 1.1 (1.1-1.8); Alkaline Phosphatase 98 U/L (38-126); Anion Gap 8.8 mEq/L (5-15); Aspartate Amino Transferase 20 U/L (14-36); Bilirubin,Total 0.6 mg/dl (0.2-1.3); Blood Urea Nitrogen 4 mg/dl (7-17); Carbon Dioxide 20 mmol/L (22.0-30.0); Chloride 107 mmol/L (98-107); Creatinine Clearance Estimated 165 mL/min (50-200); Estimated Glomerular Filt Rate 154 ml/min (>60); GFR (African American) 187 ML/MIN (>60); Globulin 3.1 g/dL (1.3-3.2); Glucose 88 mg/dl (74-100); Potassium 3.8 mmoL/L (3.5-5.1); Sodium 132 mmol/L (136-145); Total Protein,Serum 6.5 g/dl (6.3-8.2)
[2023-05-21 09:54] LABS: Appearance,Urine CLEAR (Clear); Blood, Urine Negative (Negative); Color,Urine YELLOW (Yellow); Glucose,Urine (UA) Negative (Negative); Ketones,Urine 1+ (Negative); Leukocyte Esterase,Urine Negative (Negative); Nitrate,Urine Negative (Negative); Protein,Urine TRACE (Negative)
[2023-05-21] MEDS: DEXTROSE 5%-LACTATED RINGERS 1,000 ML 999 ML IV (09:55)
[2023-05-21] MEDS: ONDANSETRON 4MG/2ML VIAL 4 MG IV (09:57)
[2023-05-21 09:58] LABS: Basophils % 0.2 % (0.1-2.0); Eosinophils # 0.1 K/mm3 (0.0-0.4); Eosinophils % 0.6 % (0.1-12.0); Hemoglobin 11.8 g/dL (12.2-16.2); Lymphocytes # 0.8 K/mm3 (0.7-4.5); Lymphocytes % 8.4 % (10-50); Mean Corpuscular HGB Conc 33.6 g/dL (31.8-35.4); Mean Corpuscular Volume 77.4 fl (81-99); Mean Platelet Volume 8.5 fl (7.4-10.4); Monocytes # 0.4 K/mm3 (0.1-1.0); Monocytes % 4.2 % (1.7-9.3); Neutrophils # 8.1 K/mm3 (1.8-7.8); Neutrophils % 86.6 % (37.0-80.0); Platelet Count 247 K/mm3 (142-424); Red Blood Count 4.53 M/mm3 (4.20-5.40); Red Cell Distribution Width 15.9 % (11.5-17.5); White Blood Count 9.3 K/mm3 (4.8-10.8)
[2023-05-21 09:59] LABS: MANUAL DIFFERENTIAL MANUAL DIFFERENTIAL (MANUAL DIFF)
[2023-05-21 10:02] LABS: Bilirubin,Urine 1+ (Negative)
[2023-05-21 10:06] LABS: WBC,Urine Occasional #/hpf (0-3)
[2023-05-21 10:07] LABS: Bacteria,Urine 1+ /lpf; Mucus,Urine Trace /lpf
[2023-05-21 10:12] LABS: Amphetamine/Metha Screen,Urine Negative ng/ml (<1000); Barbiturates Screen,Urine Negative ng/ml (<200); Benzodiazepines Screen,Urine Negative ng/ml (<200); Cannabinoid Screen,Urine Negative ng/ml (<50); Cocaine Screen,Urine Negative ng/ml (<300); Methadone Screen,Urine Negative ng/ml (<300); Opiate Screen,Urine Negative ng/ml (<300); Phencyclidine Screen,Urine Negative ng/ml (<25)
[2023-05-21 10:25] LABS: Lymphocytes % 9 % (10-50); Monocytes % 4 % (2-9); Neutrophils % 87 % (42-76); Platelet Estimate Normal; Total Cells Counted 100
[2023-05-21 10:26] LABS: Microcytosis 1+
== END 2023-05-21 11:10 | disposition home or self-care (01) ==
LOC: OBOUT 08:36 → OB 08:37
PROVIDERS: Nurse Practitioner Obstetrics & Gynecology; PCP Physician Assistant; Visit Provider Obstetrics & Gynecology
DX: O26.893 Other specified pregnancy related conditions, third trimester (principal); Z3A.36 36 weeks gestation of pregnancy
CPT/HCPCS: 59025; 80053; 80307; 81001; 85007; 85025; 96365; 96367; G0463; J2405

== ENCOUNTER 2023-05-22 13:40 | Outpatient (CLI) | payer BC, SELFPAY ==
--- NOTE | 2023-05-22 13:41 | US_ITS ---
PROCEDURE: US OB BIOPHYSICAL PROFILE CLINICAL INDICATION: decreased movement COMPARISON: Ultrasound 04/21/2023 FINDINGS: Transabdominal sonographic images of the uterus were obtained. From her established due date she is 36weeks 4days. The following parameters are obtained: Viable fetus in the cephalic presentation with an anterior placenta grade 2 heart rate: 138bpm Amniotic fluid index: 15.49cm, MVP 5.23 cm Qualitative AFV: 2 breathing movements: 2 Gross body movements: 2 Tone: 2 Biophysical profile score: 8 No obvious anomalies evident.Kidneys, profile, four-chamber heart, three-vessel cord appear normal. IMPRESSION: 1. Viable fetus in the cephalic presentation with anterior placenta grade 2. 2. The fluid is within normal limits with an amniotic fluid index of 15.49 cm, MCV 5.23 cm. 3. Biophysical profile is 8/8 with good breathing movement and movement seen. Dictated by: Donnie Oliver MD 05/22/2023 15:07 Donnie Oliver MD in OV 05/22/2023 15:07
== END 2023-05-22 23:59 ==
LOC: RAD 13:41
PROVIDERS: PCP Physician Assistant; Visit Provider Obstetrics & Gynecology
DX: O36.8130 Decreased fetal movements, third trimester, not applicable or unspecified (principal); Z3A.36 36 weeks gestation of pregnancy
CPT/HCPCS: 76819

== ENCOUNTER 2023-05-26 11:55 | Inpatient (IN) | payer BC, SELFPAY ==
[2023-05-26] VITALS (7 sets, daily range): BP systolic 101–135; BP diastolic 55–81; PULSE 82–105; RESP 12–20; TEMP 36.4–36.8; O2SAT 96–98; BMI 53.3; BMI 53.6
[2023-05-26 12:28] LABS: Microscopic, Urine URINE MICROSCOPIC (MICROSCOPIC)
[2023-05-26 12:29] LABS: Appearance,Urine CLEAR (Clear); Blood, Urine Negative (Negative); Color,Urine YELLOW (Yellow); Glucose,Urine (UA) Negative (Negative); Ketones,Urine 1+ (Negative); Leukocyte Esterase,Urine Negative (Negative); Nitrate,Urine Negative (Negative); Protein,Urine Negative (Negative); Urobilinogen,Urine 0.2 EU/dl (0.2)
[2023-05-26 12:35] LABS: Bilirubin,Urine 1+ (Negative)
[2023-05-26 12:46] LABS: Bacteria,Urine 1+ /lpf
[2023-05-26 13:00] LABS: Basophils % 0.3 % (0.1-2.0); Eosinophils # 0.1 K/mm3 (0.0-0.4); Eosinophils % 0.6 % (0.1-12.0); Hemoglobin 11.4 g/dL (12.2-16.2); Lymphocytes # 1.6 K/mm3 (0.7-4.5); Lymphocytes % 20.2 % (10-50); Mean Corpuscular HGB Conc 34.6 g/dL (31.8-35.4); Mean Corpuscular Hemoglobin 26.4 pg (27.0-31.2); Mean Corpuscular Volume 76.4 fl (81-99); Mean Platelet Volume 8.9 fl (7.4-10.4); Monocytes # 0.3 K/mm3 (0.1-1.0); Monocytes % 3.8 % (1.7-9.3); Neutrophils # 5.8 K/mm3 (1.8-7.8); Neutrophils % 75.2 % (37.0-80.0); Platelet Count 248 K/mm3 (142-424); Red Blood Count 4.32 M/mm3 (4.20-5.40); White Blood Count 7.7 K/mm3 (4.8-10.8)
--- NOTE | 2023-05-26 13:04 | P.HP_ITS ---
OB - H&P: HPI Antepartum History of Present Illness Chief complaint: Scheduled repeat , decreased movement History of present illness: Mrs Karo Colon is a 22 yo at 37w1d by 1st trimester ultrasound who presents to [facility] for scheduled repeat secondary to recurrent decreased movement. She has history of CHTN, not currently taking any medication for blood pressure. She is taking baby Aspirin 81 mg nightly. History of preeclampsia with prior . She has had good care. History of Present Criteria for establishing EDC:: based on 1st trimester US only care: good care Ultrasounds: normal mid trimester US Obstetrical complications: previous Medical complications: none Labs Blood type: O (+) positive Rubella: nonimmune RPR/VDRL: nonreactive HBsAG: negative PFSH [facility] Disclaimer: The information contained in this section may have been updated after the patient was seen, as this information can be updated by other users. Medical History (Updated 05/26/23 @ 13:12 by Kaylee Syed DO) 37 weeks gestation of Abnormal uterine bleeding Anxiety Carpal tunnel syndrome during Chronic hypertension during , antepartum Daytime somnolence Decreased movement affecting management of in third trimester Depression Gallbladder disease Gastroesophageal reflux disease Headache History of pre-eclampsia in prior , currently Iron deficiency Maternal obesity affecting , antepartum Migraine Other abnormal clinical finding Pre-eclampsia superimposed on chronic hypertension Rubella non-immune status, antepartum Screening for genetic disease carrier status Surgical History History of delivery History of laparoscopic cholecystectomy Family History Other Cancer Family history of myocardial infarction Social History Smoking Status: Never smoker alcohol intake: never substance use type: denies use current occupational status: employed Travel in the last 8 weeks: None household members: family housing: house Review of Systems Review of Systems Review of systems:: pertinent systems reviewed and negative unless documented below Constitutional Constitutional: Reports headache(s) and Reports poor appetite ENT Ears, Nose, Mouth, and Throat: Reports headache(s) and Reports vertigo *Genitourinary Comments: + decreased/absent movement *Musculoskeletal Comments: + carpal tunmel *Neurologic Neurologic: Reports headache(s) and Reports vertigo Psychiatric Comments: + distress and worry from not feeling baby move Meds Home Medications and Allergies Home Medications Medication Instructions Recorded Confirmed Type ferrous sulfate 325 mg (65 mg 325 mg PO TID Supplement 07/10/22 05/23/23 History iron) tablet pantoprazole 40 mg tablet,delayed 40 mg PO DAILY #30 tabs 11/07/22 05/23/23 Rx release (Protonix) aspirin 81 mg tablet,delayed 81 mg PO DAILY 01/06/23 05/23/23 History release (Adult Low Dose Aspirin) cyclobenzaprine 5 mg tablet 5 mg PO TID PRN muscle spasm #30 04/07/23 05/23/23 Rx tabs vits no.126-ferrous fum 1 tab PO DAILY 05/23/23 05/23/23 History 28 mg iron-folic acid 800 mcg tablet (Classic ) New Prescriptions to Start Prescriptions: Allergies Allergy/AdvReac Type Severity Reaction Status Date / Time No Known Allergies Allergy Verified 05/23/23 08:04 OB - H&P: Exam Constitutional morbidly obese and cooperative Routine HEENT Exam Head: Present normocephalic and atraumatic Eye: Absent conjunctivae pink ENT: Present mucous membranes moist Routine Neck Exam Present full ROM Routine Respiratory Exam Present CTA bilaterally and normal respiratory effort Routine Cardiovascular Exam Present RRR Routine Abdominal Exam Present soft (Gravid); Absent tenderness Routine Rectal Exam Patient deferred: visual exam Routine Exam External: Present normal urethra appearance; Absent erythema, tenderness, ecchymosis, lacerations or vulvar erythema Routine Extremities Exam Present edema (+1 bilateral lower extremity edema ) and full ROM; Absent calf tenderness Routine Neurological Exam Present alert, oriented X3 and moving all extremities Routine Psychiatric Exam Present normal affect and cooperative OB - Results Labs Labs: Short CBC 05/26/23 Range/Units 12:39 WBC 7.7 (4.8-10.8) K/mm3 Hgb 11.4 L (12.2-16.2) g/dL Hct 33.0 L (37.0-47.0) % Plt Count 248 (142-424) K/mm3 Urine 05/26/23 Range/Units 12:21 Urine Color Yellow (Yellow) Urine Appearance Clear (Clear) Urine pH 7.0 (5.0-8.5) Ur Specific [place] 1.020 (1.005-1.030) Urine Protein Negative (Negative) Urine Glucose (UA) Negative (Negative) OB - A/P Antepartum (1) 37 weeks gestation of : Status: Acute (2) Decreased movement affecting management of in third trimester: Status: Acute (3) History of delivery: Status: Acute (4) Chronic hypertension during , antepartum: Status: Acute (5) Maternal obesity affecting , antepartum: Status: Acute (6) History of pre-eclampsia in prior , currently : Status: Acute (7) Carpal tunnel syndrome during : Status: Acute (8) Rubella non-immune status, antepartum: Status: Acute Additional Plan Additional Information:: Admit to [facility] L&D for scheduled repeat secondary to decreased/absent movement with mom feeling distress and worried about a poor outcome Discussed risks, benefits, alternatives, expectations and possible complications of surgery. All questions addressed and answered. She voiced understanding of risks and possible complications. Consent form signed Proceed with scheduled repeat
[2023-05-26] MEDS: CEFAZOLIN SODIUM 3 GM in 0.9 % SODIUM CHLORIDE 100 ML IV (13:18)
--- NOTE | 2023-05-26 14:49 | EXP.OP.NOTE ---
Date of procedure: 05/26/23 Pre-op Diagnosis:: 1. IUP at 37w1d 2. Decreased/absent movement, recurrent 3. Hx of x 1 4. CHTN controlled without medication during this 5. Maternal obesity 6. Hx of preeclampsia in prior Post-op Diagnosis:: 1. IUP at 37w1d 2. Decreased/absent movement, persistent 3. Hx of x 1 4. CHTN controlled without medication during this 5. Maternal obesity 6. Hx of preeclampsia in prior Procedure performed:: Repeat Low Transverse Section Surgeon:: Kaylee Syed DO Hot Patcher(s):: Donnie Oliver MD SUPERVISOR DUMPING:: Hal Christie Anesthesia: spinal Estimated blood loss (mL): 600 Clinical Note:: Mrs Karo Colon is a 22 yo at 37w1d by 1st trimester ultrasound who presents to [facility] for scheduled repeat secondary to recurrent decreased movement. She has history of CHTN, not currently taking any medication for blood pressure. She is taking baby Aspirin 81 mg nightly. History of preeclampsia with prior . She has had good care. Operative findings:: 1. Live male baby, Rodrigo, weighing 7 lb 12 oz, APGARs 9 (1 min), 9 (5 min) 2. Grossly normal appearing uterus, bilateral fallopian tubes and ovaries 3. Placenta appeared grossly normal Operative note:: The risks, benefits and alternatives of the procedure were reviewed with the patient. Informed consent was obtained. Patient was taken to the operating room where epidural was bolused. The patient received 3 grams of Ancef preoperatively. Patient was placed in dorsal supine position with a leftward tilt. SCDs in place. Castano catheter had been placed and was draining clear urine prior to the start of the procedure. heart tones were obtained. Patient was then prepped and draped in normal sterile fashion. Allis clamp test was performed to ensure adequate anesthesia. A Pfannenstiel skin incision was made 2 cm above pubic symphysis along prior Pfannenstiel scar. This was carried through to underlying layer of fascia. Fascia was incised in midline, extended laterally with Cox scissors. Superior aspect of fascial incision was grasped with two Micky clamps, elevated up, and rectus muscle dissected off bluntly and sharply with Cox scissors. Inferior aspect of fascial incision was grasped with two Micky clamps, elevated up, and rectus muscle dissected off bluntly and sharply with Cox scissors.The rectus muscle was then in the midline and the peritoneum was entered bluntly with a digit. Peritoneal incision was then extended superiorly and inferiorly with good visualization of the bladder. Munir retractor was inserted. The lower uterine segment was incised in a transverse fashion. Clear amniotic fluid was noted. Head was delivered without difficulty. Remainder of body was delivered without difficulty. Mouth and nares were bulb suctioned. Spontaneous cry was noted. Delayed cord clamping was performed for 60 seconds. The umbilical cord was clamped and cut. The was handed to awaiting pediatric staff in stable condition. Dr. Cobos was present. Apgars were 9(1 min), 9(5 min). Section of cord was collected for cord gases. Cord blood was obtained. Gentle traction on the umbilical cord and uterine fundal massage delivered the placenta. Placenta was intact. Placenta will be sent to pathology for review. Uterus was cleared of all clots and debris with a moist laparotomy sponge. Corners of the uterine incision were grasped with Allis clamps. The uterine incision was reapproximated with # 1 Vicryl suture in a running, locked stitch. Second layer of the same stitch was used to imbricate the incision. Vesicouterine peritoneum was reapproximated in a running locked stitch with 0-Vicryl suture. Hemostasis was noted. Posterior cul-de-sac was cleaned with moist laparotomy sponge. Gutters cleared of all clots and debris with a moist laparotomy sponge. Reinspection of the lower uterine segment demonstrated hemostasis. At this point all instruments and sponges were removed from the pelvis.? The peritoneum was grasped with Flory clamps x 3. The peritoneum was reapproximated with 0 Vicryl suture in a running stitch. The corners of the fascia were grasped with Micky clamps, and the fascia was reapproximated with two # 1 Vicryl suture overlapped to the right of midline. Subcutaneous tissue was irrigated with clear return of fluids. The subcutaneous tissue was reapproximated with 3-0 Vicryl. The skin was reapproximated with metal fozia. Telfa was placed over closed Pfannenstiel skin incision. At the end of the procedure, the uterus was firm with minimal vaginal bleeding. Patient tolerated the procedure well. Instrument, sponges and needle counts were correct x 2. Mom and baby were transported to recovery room in stable condition. Condition: stable Disposition: floor Specimens:: 1. Cord blood Complications:: None
--- NOTE | 2023-05-26 14:52 | P.PNANES_ITS ---
[facility] Disclaimer: The information contained in this section may have been updated after the patient was seen, as this information can be updated by other users. Medical History (Updated 05/26/23 @ 13:12 by Kaylee Syed DO) 37 weeks gestation of Abnormal uterine bleeding Anxiety Carpal tunnel syndrome during Chronic hypertension during , antepartum Daytime somnolence Decreased movement affecting management of in third trimester Depression Gallbladder disease Gastroesophageal reflux disease Headache History of pre-eclampsia in prior , currently Iron deficiency Maternal obesity affecting , antepartum Migraine Other abnormal clinical finding Pre-eclampsia superimposed on chronic hypertension Rubella non-immune status, antepartum Screening for genetic disease carrier status Surgical History History of delivery History of laparoscopic cholecystectomy Family History Other Cancer Family history of myocardial infarction Social History Smoking Status: Never smoker alcohol intake: never substance use type: denies use current occupational status: employed Travel in the last 8 weeks: None household members: family housing: house [facility] Anesthesia Checklist Patient Identification Patient Identification: Verbal (Name & ) Structural Data Admitted From: Home Planned Operative Procedure/s: c/section Consent for Planned Operative Procedure(s) Verified: Yes NPO Status Verified Time NPO: 00:00 Additional verifications Anesthesia Reactions: No Hx Blood Transfusions: No Blood Transfusion Reaction: No Airway Assessment Mallampati Score:: Class II C-Spine Mobility Assessed: Yes TMJ Mobility Assessed: Yes Dentition: Good Dentition Neurological Assessment Level of Consciousness: Awake, Alert and Appropriate Anesthesia Plan Anesthesia Risk discussed: Yes Anesthesia Plan: Verified ASA Class: III Anesthesia Type: Spinal
--- NOTE | 2023-05-26 14:53 | EXP.ANES.I ---
[facility] Anesthesia Record Part I Anesthesia Record I Intake, IV Amount: 1,800 Hydration: Adequate Estimated blood loss (mL): 600 Urine output (mL): 300 Blood Pressure: 135/59 SaO2: 96 Pulse Rate: 92 Airway Patency: Patent Respiratory Rate: 12 Temperature: 97.5 F Patient is:: Awake and Stable Stable to PACU at:: 14:45
--- NOTE | 2023-05-26 15:14 | SUR.OPER ---
[id number] apgars 9/9 Cord blood ph not requested per and
[2023-05-26] MEDS: OXYTOCIN/RINGERS LACTATE 30 UNITS/500 ML BAG 40 UNITS IV (15:22)
[2023-05-26 15:40] LABS: Microscopic,Cath URINE MICROSCOPIC (MICROSCOPIC)
[2023-05-26 15:48] LABS: Appearance,Urine/Cath CLEAR (Clear); Bilirubin,Cath Negative (Negative); Blood, Urine/Cath Negative (Negative); Color,Urine/Cath YELLOW (Yellow); Glucose,Urine/Cath (UA) Negative (Negative); Ketones,Urine/Cath 2+ (Negative); Leukocyte Esterase,Cath Negative (Negative); Nitrate,Cath Negative (Negative); Protein,Urine/Cath Negative (Negative); Urobilinogen,Cath 0.2 EU/dl (0.2)
[2023-05-26 16:12] LABS: Amphetamine/Metha Screen,Urine Negative ng/ml (<1000); Barbiturates Screen,Urine Negative ng/ml (<200); Benzodiazepines Screen,Urine Negative ng/ml (<200); Cannabinoid Screen,Urine Negative ng/ml (<50); Cocaine Screen,Urine Negative ng/ml (<300); Methadone Screen,Urine Negative ng/ml (<300); Opiate Screen,Urine Negative ng/ml (<300); Phencyclidine Screen,Urine Negative ng/ml (<25)
[2023-05-26] MEDS: ACETAMINOPHEN 500MG TAB 1000 MG PO (20:30)
[2023-05-26] MEDS: KETOROLAC 30MG/ML VIAL 30 MG IV (20:30)
[2023-05-26] MEDS: CEFAZOLIN SODIUM 2 GM in 0.9 % SODIUM CHLORIDE 100 ML IV (20:31)
[2023-05-27] MEDS: ACETAMINOPHEN 500MG TAB 1000 MG PO ×4 (02:32→22:09)
[2023-05-27] MEDS: KETOROLAC 30MG/ML VIAL 30 MG IV ×2 (02:33→08:22)
[2023-05-27 04:16] VITALS: BP 129/71; PULSE 90; RESP 18; TEMP 36.8; O2SAT 98
[2023-05-27] MEDS: CEFAZOLIN SODIUM 2 GM in 0.9 % SODIUM CHLORIDE 100 ML IV (04:43)
[2023-05-27 05:33] LABS: Basophils % 0.2 % (0.1-2.0); Eosinophils # 0.1 K/mm3 (0.0-0.4); Eosinophils % 0.7 % (0.1-12.0); Hematocrit 30.5 % (37.0-47.0); Hemoglobin 10.4 g/dL (12.2-16.2); Lymphocytes # 1.8 K/mm3 (0.7-4.5); Lymphocytes % 20.1 % (10-50); Mean Corpuscular HGB Conc 34.1 g/dL (31.8-35.4); Mean Corpuscular Hemoglobin 26.2 pg (27.0-31.2); Mean Corpuscular Volume 76.9 fl (81-99); Mean Platelet Volume 8.4 fl (7.4-10.4); Monocytes # 0.5 K/mm3 (0.1-1.0); Monocytes % 5.2 % (1.7-9.3); Neutrophils # 6.5 K/mm3 (1.8-7.8); Neutrophils % 73.8 % (37.0-80.0); Platelet Count 202 K/mm3 (142-424); Red Blood Count 3.96 M/mm3 (4.20-5.40); Red Cell Distribution Width 16.1 % (11.5-17.5); White Blood Count 8.8 K/mm3 (4.8-10.8)
[2023-05-27] MEDS: ENOXAPARIN 40MG/0.4ML SYRINGE 40 MG SQ (08:22)
[2023-05-27 08:30] VITALS: BP 141/83; PULSE 85; RESP 18; TEMP 36.8; O2SAT 96
--- NOTE | 2023-05-27 08:58 | P.PN_ITS ---
Subjective *Date: 05/27/23 *Time: 08:58 Interval history: POD # 1 s/p RLTCS Sitting comfortably in bed. She states she feels really good. Pain controlled. Breast and formula feeding. Lochia appropriate. Voiding without difficulty. Passing flatus. Tolerating regular diet. No fever/chills, chest pain or shortness of breath. Denies headaches, vision changes, lightheadedness/dizziness. Medical Exam Vital signs and Labs for Last 24 Hours: Vital Signs Temp Pulse Pulse Resp BP BP Pulse Ox 05/27/23 08:30 98.3 F 85 18 141/83 H 96 05/27/23 04:16 98.3 F 90 18 129/71 98 05/26/23 20:10 98.3 F 87 20 134/67 97 05/26/23 12:00 97.8 F 105 H 16 135/81 98 05/26/23 14:55 90 18 123/62 97 05/26/23 15:15 82 17 101/57 L 98 05/26/23 15:05 97.5 F L 86 17 115/55 L 98 05/26/23 14:45 94 H 17 135/59 L 97 05/26/23 14:54 97.5 F L 92 H 12 135/59 L O2 Del Method 05/27/23 08:30 Room Air 05/27/23 04:16 Room Air 05/26/23 20:10 Room Air 05/26/23 12:00 Room Air 05/26/23 14:55 Room Air 05/26/23 15:15 Room Air 05/26/23 15:05 Room Air 05/26/23 14:45 Room Air 05/26/23 14:54 Laboratory Results - last 24 hr 05/26/23 12:21: Urine Color Yellow, Urine Appearance Clear, Urine pH 7.0, Ur Specific [place] 1.020, Urine Protein Negative, Urine Glucose (UA) Negative, Urine Ketones 1+, Urine Blood Negative, Urine Nitrate Negative, Urine Bilirubin 1+ A, Urine Urobilinogen 0.2, Ur Leukocyte Esterase Negative, Urine RBC None, Urine WBC 3-5, Ur Squamous Epith Cells 3-5, Urine Bacteria 1+ 05/26/23 12:39: WBC 7.7, RBC 4.32, Hgb 11.4 L, Hct 33.0 L, MCV 76.4 L, MCH 26.4 L, MCHC 34.6, RDW 16.0, Plt Count 248, MPV 8.9, Neut % (Auto) 75.2, Lymph % (Auto) 20.2, [place] % (Auto) 3.8, Eos % (Auto) 0.6, Baso % (Auto) 0.3, Neut # (Auto) 5.8, Lymph # (Auto) 1.6, [place] # (Auto) 0.3, Eos # (Auto) 0.1, Baso # (Auto) 0.0, Blood Type O Positive, Antibody Screen Negative 05/26/23 13:48: Urine Color Yellow, Urine Appearance Clear, Urine pH 7.0, Ur Specific [place] 1.010, Urine Protein Negative, Urine Glucose (UA) Negative, Urine Ketones 2+, Urine Blood Negative, Urine Nitrate Negative, Urine Bilirubin Negative, Urine Urobilinogen 0.2, Ur Leukocyte Esterase Negative, Urine RBC None, Urine WBC None, Ur Squamous Epith Cells None, Urine Bacteria None, Urine Opiates Screen Negative, Urine Methadone Screen Negative, Ur Barbituates Screen Negative, Ur Phencyclidine Scrn Negative, Ur Amphetamines Screen Negative, U Benzodiazepines Scrn Negative, Urine Cocaine Screen Negative, U Marijuana (THC) Screen Negative 05/27/23 05:16: WBC 8.8, RBC 3.96 L, Hgb 10.4 L, Hct 30.5 L, MCV 76.9 L, MCH 26.2 L, MCHC 34.1, RDW 16.1, Plt Count 202, MPV 8.4, Neut % (Auto) 73.8, Lymph % (Auto) 20.1, [place] % (Auto) 5.2, Eos % (Auto) 0.7, Baso % (Auto) 0.2, Neut # (Auto) 6.5, Lymph # (Auto) 1.8, [place] # (Auto) 0.5, Eos # (Auto) 0.1, Baso # (Auto) 0.0 I & O for Labs for Last 24 Hours: Intake & Output 05/24/23 05/25/23 05/26/23 05/27/23 23:59 23:59 23:59 23:59 Intake Total 1800 / 1800 Balance 1800 / 1800 Weight 332 lb Head: Present atraumatic and normocephalic ENT: Present mucous membranes moist Neck: Present full ROM Respiratory: Present CTA bilaterally and normal respiratory effort Cardiac: Present Reg Rate and Rhythm GI: Present soft and normal bowel sounds; Absent distention or tenderness Comments:: Uterine fundus firm and below umbilicus, pfannenstiel incision clean/dry/intact with metal fozia present Rectal (female): Present deferred (female): Present deferred Extremities: Present full ROM and edema (+1 bilateral lower extremity edema ); Absent calf tenderness Neuro: Present alert, awake and moves all extremities Assessment and Plan *Assessment and plan (1) Status post repeat low transverse section: Status: Acute Category: Surgical Code(s): Z98.891 - History of uterine scar from previous surgery (2) 37 weeks gestation of : Status: Acute Category: Medical Code(s): Z3A.37 - 37 weeks gestation of (3) Decreased movement affecting management of in third trimester: Status: Acute Qualifiers: Fetus number: single or unspecified fetus Qualified Code(s): O36.8130 - Decreased movements, third trimester, not applicable or unspecified Category: Medical Code(s): O36.8130 - Decreased movements, third trimester, not applicable or unspecified (4) Carpal tunnel syndrome during : Status: Acute Category: Medical Code(s): O26.899 - Other specified related conditions, unspecified trimester; G56.00 - Carpal tunnel syndrome, unspecified upper limb (5) History of pre-eclampsia in prior , currently : Status: Acute Category: Medical Code(s): O09.299 - Supervision of with other poor reproductive or obstetric history, unspecified trimester (6) Chronic hypertension during , antepartum: Status: Acute Category: Medical Code(s): O10.919 - Unspecified pre-existing hypertension complicating , unspecified trimester (7) Maternal obesity affecting , antepartum: Status: Acute Qualifiers: Obesity type affecting : unspecified obesity Qualified Code(s): O99.210 - Obesity complicating , unspecified trimester Category: Medical Code(s): O99.210 - Obesity complicating , unspecified trimester (8) History of delivery: Status: Acute Category: Surgical Code(s): Z98.891 - History of uterine scar from previous surgery (9) Rubella non-immune status, antepartum: Status: Acute Category: Medical Code(s): O09.899 - Supervision of other high risk pregnancies, unspecified trimester; Z28.39 - Other underimmunization status (10) Acute blood loss anemia: Status: Acute Category: Medical Code(s): D62 - Acute posthemorrhagic anemia Plan Continue routine care Encouraged increased ambulation Continue ferrous sulfate 325 mg PO daily Plan d/c home POD # 2 or POD # 3
[2023-05-27] MEDS: FERROUS SULFATE 325MG TABLET 325 MG PO (11:42)
[2023-05-27 16:07] VITALS: BP 125/82; PULSE 81; RESP 18; TEMP 37; O2SAT 96
[2023-05-27] MEDS: IBUPROFEN 400 MG TABLET 800 MG PO ×2 (16:08→23:56)
[2023-05-28] MEDS: OXYCODONE 5MG IMMEDIATE RELEASE TABLET 5 MG PO (00:01)
[2023-05-28] MEDS: ACETAMINOPHEN 500MG TAB 1000 MG PO ×2 (04:01→08:08)
[2023-05-28 08:00] VITALS: BP 116/71; PULSE 81; RESP 18; TEMP 36.6; O2SAT 98
[2023-05-28] MEDS: IBUPROFEN 400 MG TABLET 800 MG PO (08:09)
[2023-05-28] MEDS: ENOXAPARIN 40MG/0.4ML SYRINGE 40 MG SQ (08:10)
[2023-05-28] MEDS: FERROUS SULFATE 325MG TABLET 325 MG PO (08:10)
--- NOTE | 2023-05-28 09:35 | EXP.DC.SUM ---
General Admission date:: 05/26/23 Discharge date: 05/28/23 HPI HPI HPI: POD # 2 s/p RLTCS Feeling well. Pain controlled. Breast feeding. Light lochia. Voiding without difficulty and passing flatus. Tolerating regular diet. Denies fever/chills, chest pain and shortness of breath. No headaches, vision changes, dizziness/lightheadedness. Ambulating well ad erica. Hospital Course Hospital Course Hospital Course: Mrs Karo Colon is a 22 yo at 37w1d by 1st trimester ultrasound who presents to [facility] for scheduled repeat secondary to recurrent decreased movement. She has history of CHTN, not currently taking any medication for blood pressure. She is taking baby Aspirin 81 mg nightly. History of preeclampsia with prior . She has had good care. She underwent repeat on 05/26/23. She delivered a live male , Rodrigo, weighing 7 lb 12 oz, APGARs 9 (1 min), 9 (5 min). EBL 600 mL. She did well postoperatively. Pain controlled. Breast feeding. Light lochia. Voiding without difficulty and passing flatus. Tolerating regular diet. Denies fever/chills, chest pain and shortness of breath. No headaches, vision changes, dizziness/lightheadedness. Vital signs stable, afebrile. Heart regular rate and rhythm. Lungs clear to auscultation. Abdomen soft, nontender. +1 bilateral lower extremity edema. No calf tenderness to palpation. Ambulating well ad erica. Normal hospital course. She was discharged home on POD # 2 with instructions to follow-up in the office on 06/04/23 for incision check and staple removal. Exam Data for Last 24 hours Vital signs and Labs for Last 24 Hours: Temp Pulse Resp BP Pulse Ox O2 Del Method 98.6 F 81 18 125/82 96 Room Air 05/27/23 16:07 05/27/23 16:07 05/27/23 16:07 05/27/23 16:07 05/27/23 16:07 05/27/23 16:07 I & O for Last 24 hours: Intake & Output 05/25/23 05/26/23 05/27/23 05/28/23 23:59 23:59 23:59 23:59 Intake Total 1800 / 1800 Balance 1800 / 1800 Weight 332 lb Constitutional Constitutional: no acute distress, morbidly obese and cooperative *Routine HEENT Exam Head: Present normocephalic and atraumatic Eye: Absent conjunctivae pink ENT: Present mucous membranes moist *Routine Neck Exam Neck: Present full ROM *Routine Respiratory Exam Respiratory: Present CTA bilaterally and normal respiratory effort *Routine Cardiovascular Exam Cardiovascular: Present RRR *Routine Abdominal Exam Abdominal: Present soft; Absent tenderness or distended Comments: Uterine fundus firm and below umbilicus, pfannenstiel incision clean/dry/intact with metal fozia present *Routine Rectal Exam Patient deferred: visual exam *Routine Exam Patient deferred: external exam *Routine Extremities Exam Extremities: Present edema (+1 bilateral lower extremity edema ) and full ROM; Absent calf tenderness *Routine Neurological Exam Neurological: Present alert, oriented X3 and moving all extremities Routine Psychiatric Exam Psychiatric: Present normal affect and cooperative DS: Diagnosis Discharge Diagnosis (1) Status post repeat low transverse section: Status: Acute Code(s): Z98.891 - History of uterine scar from previous surgery (2) 37 weeks gestation of : Status: Acute Code(s): Z3A.37 - 37 weeks gestation of (3) Decreased movement affecting management of in third trimester: Status: Acute Code(s): O36.8130 - Decreased movements, third trimester, not applicable or unspecified Qualifiers: Fetus number: single or unspecified fetus Qualified Code(s): O36.8130 - Decreased movements, third trimester, not applicable or unspecified (4) Carpal tunnel syndrome during : Status: Acute Code(s): O26.899 - Other specified related conditions, unspecified trimester; G56.00 - Carpal tunnel syndrome, unspecified upper limb (5) History of pre-eclampsia in prior , currently : Status: Acute Code(s): O09.299 - Supervision of with other poor reproductive or obstetric history, unspecified trimester (6) Chronic hypertension during , antepartum: Status: Acute Code(s): O10.919 - Unspecified pre-existing hypertension complicating , unspecified trimester (7) Maternal obesity affecting , antepartum: Status: Acute Code(s): O99.210 - Obesity complicating , unspecified trimester Qualifiers: Obesity type affecting : unspecified obesity Qualified Code(s): O99.210 - Obesity complicating , unspecified trimester (8) History of delivery: Status: Acute Code(s): Z98.891 - History of uterine scar from previous surgery (9) Rubella non-immune status, antepartum: Status: Acute Code(s): O09.899 - Supervision of other high risk pregnancies, unspecified trimester; Z28.39 - Other underimmunization status (10) Acute blood loss anemia: Status: Acute Code(s): D62 - Acute posthemorrhagic anemia Meds Home Medications and Allergies Home Medications Medication Instructions Recorded Confirmed Type ferrous sulfate 325 mg (65 mg 325 mg PO TID Supplement 07/10/22 05/27/23 History iron) tablet vits no.126-ferrous fum 1 tab PO DAILY 05/23/23 05/27/23 History 28 mg iron-folic acid 800 mcg tablet (Classic ) ibuprofen 800 mg tablet 800 mg PO Q8H PRN pain #20 tabs 05/28/23 Rx oxycodone 5 mg tablet 5 mg PO Q4HP PRN Moderate Pain 05/28/23 Rx (4-6) #20 tabs New Prescriptions to Start Prescriptions: Kaylee Carranza oxycodone Kaylee Syed Allergies Allergy/AdvReac Type Severity Reaction Status Date / Time No Known Allergies Allergy Verified 05/23/23 08:04 Discharge Plan Disposition Patient Disposition: Home, Self-Care Condition: Good Discharge Order Discharge Orders: Discharge Order (Routine); Ordered 05/28/23 Ordered By: Kaylee Syed Follow up Plan Follow up with: Kaylee Syed DO [Staff Physician] - 06/04/23 Prescriptions/Medication Reconciliation: New oxycodone 5 mg Tablet 5 mg PO Q4HP PRN (Reason: Moderate Pain (4-6)) Qty: 20 0RF ibuprofen 800 mg tablet 800 mg PO Q8H PRN (Reason: pain) Qty: 20 0RF Continued ferrous sulfate 325 mg (65 mg iron) tablet 325 mg PO TID Classic 28 mg iron- 800 mcg tablet 1 tab PO DAILY Discontinued pantoprazole [Protonix] 40 mg tablet,delayed release (DR/EC) 40 mg PO DAILY Qty: 30 5RF aspirin [Adult Low Dose Aspirin] 81 mg tablet,delayed release (DR/EC) 81 mg PO DAILY cyclobenzaprine 5 mg tablet 5 mg PO TID PRN (Reason: muscle spasm) Qty: 30 0RF Problem Reconciliation Problems Reviewed?: Yes Patient Discharge Instructions ACTIVITY: Limited activity and No heavy lifting DIET: continue same diet and regular diet Additional Instructions: Discharge: 1. Take 800 mg Ibuprofen every 8 hours as needed for pain. You can also take 500-1000 mg of Tylenol in between doses, every 6-8 hours and 5 mg of Oxycodone every 4-6 hours as needed for moderate to severe pain. 2. Nothing in the vagina for 6 weeks - no intercourse, douching or tampons. No tub baths/hot tubs or swimming pools 3. Reasons to return to L&D or call On-Call doctor - fever (greater than 100.4) - heavy vaginal bleeding (soaking through 1 pad in less than 2 hours) - vaginal discharge (malodorous and/or purulent) - severe headaches not resolved by medication or rest and leg tenderness/edema 4. depression/blues - Normal to feel anxious/overwhelmed for first 2 weeks - Talk to your doctor if: severe anxiety, trouble bonding with baby, withdrawing from other family members, thoughts of harming yourself or others Kaylee Syed DO [facility] [phone] Providers Primary Care Provider: Nicci Baker Provider: Kaylee Syed Attending Provider: Kaylee Syed
== END 2023-05-28 11:45 | disposition home or self-care (01) | DRG 787 ==
PROVIDERS: Admitting Provider Obstetrics & Gynecology; PCP Physician Assistant; Visit Provider Obstetrics & Gynecology
PROC: 10D00Z1 Extraction of Products of Conception, Low, Open Approach (ICD-10-PCS; principal; 2023-05-26 13:30)
DX: O34.211 Maternal care for low transverse scar from previous cesarean delivery (principal); D62 Acute posthemorrhagic anemia; O10.92 Unspecified pre-existing hypertension complicating childbirth; Z37.0 Single live birth; O99.214 Obesity complicating childbirth; O90.81 Anemia of the puerperium; Z3A.37 37 weeks gestation of pregnancy
CPT/HCPCS: 59514; 59025; 80307; 81001; 85025; 86850

== ENCOUNTER 2023-07-22 10:32 | Outpatient (CLI) | payer BC, SELFPAY ==
--- NOTE | 2023-07-22 10:35 | XR_ITS ---
FINAL REPORT CLINICAL HISTORY: Left foot Pain COMPARISON: none FINDINGS: LEFT FOOT: Three views of the left foot were obtained. There is no acute fracture or dislocation. The joint spaces are intact. There is a small plantar calcaneal spur. There is no soft tissue abnormality. IMPRESSION: No acute bony abnormality. Small plantar calcaneal spur. Reviewed, Interpreted and Dictated by Armaan Mcpherson III, MD Transcribed by Jacqueline Oliver Authenticated and [facility]
--- NOTE | 2023-07-22 10:35 | XR_ITS ---
FINAL REPORT CLINICAL HISTORY: Right foot Pain COMPARISON: None FINDINGS: RIGHT FOOT: Three views of the right foot were obtained. There is no acute fracture or dislocation. The joint spaces are intact. There is no soft tissue abnormality. IMPRESSION: No acute bony abnormality. Reviewed, Interpreted and Dictated by Armaan Mcpherson III, MD Transcribed by Jacqueline Oliver Authenticated and [facility]
--- NOTE | 2023-07-22 10:35 | XR_ITS ---
FINAL REPORT CLINICAL HISTORY: Ankle Pain Right ankle pain 6+mos COMPARISON: None FINDINGS: RIGHT ANKLE: Three views of the right ankle were obtained. There is no acute fracture or dislocation. The joint spaces and mortise are intact. There is no soft tissue abnormality. IMPRESSION: No acute bony abnormality. Reviewed, Interpreted and Dictated by Armaan Mcpherson III, MD Transcribed by Jacqueline Oliver Authenticated and [facility]
--- NOTE | 2023-07-22 10:35 | XR_ITS ---
FINAL REPORT CLINICAL HISTORY: Ankle Pain left ankle pain 6+mos COMPARISON: None FINDINGS: LEFT ANKLE: Three views of the left ankle were obtained. There is no acute fracture or dislocation. The joint spaces and mortise are intact. There is no soft tissue abnormality. IMPRESSION: No acute bony abnormality. Reviewed, Interpreted and Dictated by Armaan Mcpherson III, MD Transcribed by Jacqueline Oliver Authenticated and [facility]
== END 2023-07-22 23:59 ==
LOC: RAD 10:33
PROVIDERS: PCP Physician Assistant; Visit Provider Podiatrist
DX: M79.671 Pain in right foot (principal); M25.571 Pain in right ankle and joints of right foot; M79.672 Pain in left foot; M25.572 Pain in left ankle and joints of left foot
CPT/HCPCS: 73610; 73630

== ENCOUNTER 2023-09-03 18:27 | Emergency (ER) | payer BC, SELFPAY ==
[2023-09-03 18:29] VITALS: BP 146/92; PULSE 88; RESP 18; TEMP 36.7; O2SAT 99; BMI 45.5
--- NOTE | 2023-09-03 18:29 | ED_ITS ---
<Statement entered by Evan Mao MD - 09/03/23 22:48> I was consulted by the YVROSE, and we discussed the complexity of the problems being addressed. I approved the treatment and management plan for this patient's care in the emergency department, thus performing a substantive portion of the medical decision making. Evan Mao MD, DANI, FACEP Discharge Plan Disposition Patient Disposition: Home, Self-Care Condition: Good Prescriptions Prescriptions: New amoxicillin-pot clavulanate 875-125 mg tablet 1 tab PO BID Qty: 20 0RF azithromycin 500 mg tablet 500 mg PO DAILY 10 Days Qty: 10 0RF No Action ferrous sulfate 325 mg (65 mg iron) tablet 325 mg PO TID Classic 28 mg iron- 800 mcg tablet 1 tab PO DAILY methylprednisolone [Medrol (Jacob)] 4 mg tablets,dose pack 4 mg PO PER PKG DIR PRN (Reason: pain) Qty: 21 0RF meloxicam 7.5 mg tablet 7.5 mg PO DAILY Qty: 30 2RF hydrochlorothiazide 12.5 mg capsule 12.5 mg PO DAILY venlafaxine 37.5 mg capsule,extended release 24hr 37.5 mg PO DAILY Qty: 30 2RF Referrals Follow up/Referrals: Giovanni Ritter MD [Physician] - See instructions Nicci Baker PA [Primary Care Provider] - See instructions Activity Restrictions/Add. Instructions Additional Instructions/Restrictions: Stop Bactrim. Start Augmentin and azithromycin. Made a referral for ear nose and throat evaluation. Return to the ER as needed for any worsening signs or symptoms. Clinical Impressions Clinical Impression: Suppurative otitis media of left ear Qualifiers: Chronicity: acute Discharge ED Provider: Evan Mao General Adult HPI General Chief complaint: Ear Stated complaint: LT ear pain Time Seen by Provider: 09/03/23 18:29 History of Present Illness HPI narrative: Patient presents with left ear pain. Patient was diagnosed with otitis media and began Omnicef and completed it on the of this month. She briefly felt better but then began having symptoms again this week and has been started on Bactrim since Friday. She contacted ear nose and throat today who told her that she needed to come to the ER to get a CT as they cannot get her in quick enough to get as an outpatient. Patient only reports pain that radiates down into the left side of her neck but denies loss of hearing any focal neurologic symptoms no headache chest pain shortness of breath fever chills hemoptysis hematochezia melena nausea vomiting diarrhea. Related Data Home Medications Medication Instructions Recorded Confirmed ferrous sulfate 325 mg (65 mg 325 mg PO TID Supplement 07/10/22 07/29/23 iron) tablet vits no.126-ferrous fum 1 tab PO DAILY 05/23/23 07/29/23 28 mg iron-folic acid 800 mcg tablet (Classic ) hydrochlorothiazide 12.5 mg capsule 12.5 mg PO DAILY 06/04/23 07/29/23 Previous Rx's Medication Instructions Recorded venlafaxine 37.5 mg 37.5 mg PO DAILY #30 caps 07/23/23 capsule,extended release 24 hr meloxicam 7.5 mg tablet 7.5 mg PO DAILY #30 tabs 07/29/23 methylprednisolone 4 mg tablets in 4 mg PO PER PKG DIR PRN pain #21 07/29/23 a dose pack (Medrol (Jacob)) tabs amoxicillin 875 mg-potassium 1 tab PO BID #20 tabs 09/03/23 clavulanate 125 mg tablet azithromycin 500 mg tablet 500 mg PO DAILY 10 days #10 tabs 09/03/23 Allergies Allergy/AdvReac Type Severity Reaction Status Date / Time No Known Allergies Allergy Verified 07/29/23 09:02 [facility] Disclaimer: The information contained in this section may have been updated after the patient was seen, as this information can be updated by other users. Medical History Candidal intertrigo depression Acute blood loss anemia 37 weeks gestation of Decreased movement affecting management of in third trimester Carpal tunnel syndrome during Screening for genetic disease carrier status 12/10/22 [facility] carrier screen negative for 14 conditions tested including CF, Fragile X Rubella non-immune status, antepartum History of pre-eclampsia in prior , currently Chronic hypertension during , antepartum Maternal obesity affecting , antepartum Iron deficiency Abnormal uterine bleeding Gallbladder disease Depression Anxiety Migraine Other abnormal clinical finding Narrow bony pelvis Pre-eclampsia superimposed on chronic hypertension Headache Gastroesophageal reflux disease Daytime somnolence Surgical History Status post repeat low transverse section History of laparoscopic cholecystectomy History of delivery Family History Other Cancer Family history of myocardial infarction Social History Smoking Status: Never smoker alcohol intake: never substance use type: denies use current occupational status: employed Travel in the last 8 weeks: None household members: family housing: house ROS Obtained: Yes Systems reviewed as appropriate & no additional complaints except as documented Physical Exam General General appearance: alert and in no apparent distress Head Head exam: atraumatic and normal inspection Eye Eye exam: Present normal appearance and PERRL ENT ENT exam: Present normal exam, normal oropharynx and mucous membranes moist Neck Neck exam: Present normal inspection, full ROM and trachea midline; Absent lymphadenopathy Respiratory Respiratory exam: Present normal lung sounds bilaterally Cardiovascular Cardiovascular exam: Present regular rate and normal rhythm; Absent normal heart sounds Neurological Exam Neurological exam: Present alert, oriented X3 and CN II-XII intact Medical Decision Making Medical Records Medical records reviewed: Yes I reviewed the patient's medical records. [place] Inquiry Pt receiving controlled substance: No Vital Signs: 09/03/23 18:29 Temperature 98.1 F Temperature Source Oral Pulse Rate [Radial] 88 Respiratory Rate 18 Blood Pressure [Right Arm] 146/92 H Blood Pressure Mean [Right Arm] 110 Blood Pressure Source [Right Arm] Automatic Cuff Blood Pressure Position [Right Arm] Sitting 02 Sat by Pulse Oximetry 99 Oxygen Delivery Method Room Air Lab Data Lab results reviewed: Yes I reviewed the patient's lab results. Lab Results 09/03/23 18:35: Urine HCG, Qual Negative 09/03/23 19:07: Sodium 142, Potassium 4.1, Chloride 110 H, Carbon Dioxide 25, Anion Gap 11.1, BUN 15, Creatinine 0.90, Estimated Creat Clear 106, Estimated GFR 78, Est GFR ( Amer) 95, Glucose 113 H, Calcium 9.4 09/03/23 19:07 Orders (Tests/Meds): ED MEDICATIONS Discontinued Medications Generic Name Dose Route Start Last Admin Trade Name Freq PRN Reason Stop Dose Admin Acetaminophen 1,000 mg 09/03/23 18:35 09/03/23 18:54 Acetaminophen 500mg Tab PO 09/03/23 18:36 1,000 mg ONCE ONE Administration Iopamidol 100 ml 09/03/23 19:28 09/03/23 19:30 Iopamidol-370 (76%);100ml Bottle IV 09/03/23 19:29 100 ml ONCE ONE Administration Ketorolac Tromethamine 15 mg 09/03/23 18:35 09/03/23 19:00 Ketorolac 30mg/Ml Vial IV 09/03/23 18:36 Not Given ONCE ONE Ketorolac Tromethamine 30 mg 09/03/23 18:40 09/03/23 18:54 Ketorolac 30mg/Ml Vial IM 09/03/23 18:41 30 mg ONCE ONE Administration Sodium Chloride 10 ml 09/03/23 19:28 09/03/23 19:30 Sodium Chloride 0.9% 10ml Syr (Rad Only) IV 09/03/23 19:29 10 ml ONCE ONE Administration ORDERS Category Date Time Status CT Temporal bone With Stat Cat Scan 09/03/23 18:34 Completed BMP [Basic Metabolic Panel] Stat Lab 09/03/23 19:07 Completed Urine , HCG Qual. Stat Lab 09/03/23 18:35 Completed Medical Decision Narrative: In summary patient is a 22-year-old female who presents to the emergency department for evaluation of left ear pain. Patient has been on antibiotics since August 17. She completed a course of 10 days of Omnicef and then started a course of Bactrim on Friday. She got briefly better in the interval. She contacted ear nose and throat today and they advised the patient to come to the emergency department for CT scan as they could not see her in a timely fashion. Patient is hemodynamically stable upon arrival, afebrile. Physical exam is remarkable for tenderness over the left side mastoid, tenderness with tragus pressure, and external auditory canal that is normal but erythematous and a bulging tympanic membrane with purulent fluid and air-fluid levels. Patient does not have any palpable nodes on the left hearing is intact although it sounds muffled according to her report.. Differential diagnosis includes suppurative otitis media versus mastoiditis versus deep space infection. Initial workup will be conducted with hematologic labs CT scan. Initial interventions include Toradol Tylenol. Initial workup reviewed by me and my informal review of her CT scan shows left otitis media I do not see any bony erosion radiology read is pending.. Upon repeat evaluation improvement in her pain. Given this patient is appropriate for discharge with the switch of her antibiotic regimen to Augmentin and azithromycin. I have referred her to [facility] offbearer. Critical Care Critical Care Time Critical Care Time: No
--- NOTE | 2023-09-03 18:34 | CT_ITS ---
PROCEDURE INFORMATION: Exam: CT Temporal Bones With Contrast. Exam date and time: 09/03/2023 7:09 PM Age: 22 years old Clinical indication: Other: Recurrent ear infections; Additional info: Refractory otitis media, per ent TECHNIQUE: Imaging protocol: Computed tomography of the temporal bones with contrast. Radiation optimization: All CT scans at this facility use at least one of these dose optimization techniques: automated exposure control; mA and/or kV adjustment per patient size (includes targeted exams where dose is matched to clinical indication); or iterative reconstruction. Contrast material: ISOVUE; Contrast volume: 100 ml; Contrast route: IV; COMPARISON: No relevant prior studies available. FINDINGS: Right inner ear: Normal. Right ossicles and middle ear: Right external auditory canal: Normal. Right facial nerve canal: Normal. Right jugular foramen: No jugular dehiscence. Right carotid canal: No aberrant carotid canal. Right mastoid air cells: Normal. No mastoid effusions. Left inner ear: Normal. Left ossicles and middle ear: The middle ear ossicles are intact. Minimal soft tissue density within the left middle ear in association with the malleus and incus. No evidence of osseous erosion. No findings to suggest cholesteatoma. Left external auditory canal: Normal. Left facial nerve canal: Normal. Left jugular foramen: No jugular dehiscence. Left carotid canal: No aberrant carotid canal. Left mastoid air cells: Trace fluid collections in the left mastoid air cells compatible with mastoiditis. Soft tissues: Unremarkable. IMPRESSION: 1. Findings compatible with left-sided otitis media. 2. Trace fluid collections in the left mastoid air cells compatible with mastoiditis.
[2023-09-03 18:53] LABS: Urine Pregnancy, HCG Qual. Negative (Negative)
[2023-09-03] MEDS: ACETAMINOPHEN 500MG TAB 1000 MG PO (18:54)
[2023-09-03] MEDS: KETOROLAC 30MG/ML VIAL 30 MG IM (18:54)
[2023-09-03] MEDS: IOPAMIDOL-370 (76%);100ML BOTTLE 100 ML IV (19:30)
[2023-09-03] MEDS: SODIUM CHLORIDE 0.9% 10ML SYR (RAD ONLY) 10 ML IV (19:30)
[2023-09-03 19:51] LABS: Chloride 110 mmol/L (98-107); Potassium 4.1 mmoL/L (3.5-5.1); Sodium 142 mmol/L (136-145)
[2023-09-03 19:54] LABS: Anion Gap 11.1 mEq/L (5-15); Blood Urea Nitrogen 15 mg/dl (7-17); Carbon Dioxide 25 mmol/L (22.0-30.0); Creatinine Clearance Estimated 106 mL/min (50-200); Estimated Glomerular Filt Rate 78 ml/min (>60); GFR (African American) 95 ML/MIN (>60)
[2023-09-03 19:55] LABS: Calcium 9.4 mg/dl (8.4-10.2); Glucose 113 mg/dl (74-100)
[2023-09-03 20:24] VITALS: BP 135/80; PULSE 84; RESP 20; TEMP 36.9; O2SAT 98
== END 2023-09-03 20:24 | disposition home or self-care (01) ==
PROVIDERS: Physician Assistant; Emergency Provider Student in an Organized Health Care Education/Training Program; PCP Physician Assistant
DX: H66.42 Suppurative otitis media, unspecified, left ear (principal); H92.02 Otalgia, left ear
CPT/HCPCS: 36415; 70481; 80048; 81025; 96372; 96374; 99284; Q9967

== ENCOUNTER 2023-09-24 10:26 | Outpatient (CLI) | payer BC, SELFPAY | END 2023-09-24 23:59 | disposition home or self-care (01) | LOC: LAB.DROPOF 09-26 10:27 | PROVIDERS: PCP Nurse Practitioner; Visit Provider Nurse Practitioner | DX: H92.02 Otalgia, left ear (principal); H66.42 Suppurative otitis media, unspecified, left ear; B96.89 Other specified bacterial agents as the cause of diseases classified elsewhere | CPT/HCPCS: 87070; 87077; 87186 ==

== ENCOUNTER 2023-09-28 19:29 | Emergency (ER) | payer BC, SELFPAY ==
[2023-09-28 19:31] VITALS: BP 138/87; PULSE 84; RESP 18; TEMP 36.6; O2SAT 100; BMI 47.3
--- NOTE | 2023-09-28 19:43 | HMH.EDGENADL ---
Discharge Plan Disposition Patient Disposition: Home, Self-Care Prescriptions Prescriptions: No Action ferrous sulfate 325 mg (65 mg iron) tablet 325 mg PO TID Classic 28 mg iron- 800 mcg tablet 1 tab PO DAILY meloxicam 7.5 mg tablet 7.5 mg PO DAILY Qty: 30 2RF tobramycin-dexamethasone 0.3-0.1 % drops,suspension 2 drp Eye-Left BID 7 Days Qty: 5 0RF Rx Instructions: Please change the above route to EAR. 2 drops to left EAR 2 times a day for 7 days hydrochlorothiazide 12.5 mg capsule 12.5 mg PO DAILY venlafaxine 37.5 mg capsule,extended release 24hr 37.5 mg PO DAILY Qty: 30 2RF Referrals Follow up/Referrals: Nicci Baker PA [Primary Care Provider] - See instructions Activity Restrictions/Add. Instructions Additional Instructions/Restrictions: At this time it was felt you are safe to be discharged home. If new or worsening symptoms please do not hesitate to return the emergency department. Please follow-up with ear nose and throat as you are able. Please use your Ciprodex 4 drops in the affected ear twice a day for 7 days. Clinical Impressions Clinical Impression: Otitis externa Discharge ED Provider: David Castillo General Adult HPI General Chief complaint: Ear Stated complaint: right ear pain radiating across face Time Seen by Provider: 09/28/23 19:35 History of Present Illness HPI narrative: Patient is a 22-year-old female past medical history of recurrent atypical ear infections who presents emergency department for evaluation of symptoms concerning for ear infection. Patient has had recurrent ear infections on the left requiring atypical antibiotics most recently tobramycin with steroid drops externally in the left external auditory canal. Over the last couple of days she has had right ear pain that is worse with pulling on her right ear. She presents here for continued evaluation. No other acute complaints at this time. Related Data Home Medications Medication Instructions Recorded Confirmed ferrous sulfate 325 mg (65 mg 325 mg PO TID Supplement 07/10/22 09/24/23 iron) tablet vits no.126-ferrous fum 1 tab PO DAILY 05/23/23 09/24/23 28 mg iron-folic acid 800 mcg tablet (Classic ) hydrochlorothiazide 12.5 mg capsule 12.5 mg PO DAILY 06/04/23 09/24/23 Previous Rx's Medication Instructions Recorded meloxicam 7.5 mg tablet 7.5 mg PO DAILY #30 tabs 07/29/23 venlafaxine 37.5 mg 37.5 mg PO DAILY #30 caps 09/05/23 capsule,extended release 24 hr tobramycin 0.3 %-dexamethasone 0.1 2 drp Eye-Left BID Left EAR 09/24/23 % eye drops,suspension infection 7 days #5 mL Allergies Allergy/AdvReac Type Severity Reaction Status Date / Time No Known Allergies Allergy Verified 09/24/23 10:48 [facility] Disclaimer: The information contained in this section may have been updated after the patient was seen, as this information can be updated by other users. Medical History (Updated 09/28/23 @ 19:49 by David Castillo MD) Otitis externa of left ear Left ear pain Hearing loss, left Candidal intertrigo depression Acute blood loss anemia 37 weeks gestation of Decreased movement affecting management of in third trimester Carpal tunnel syndrome during Screening for genetic disease carrier status Rubella non-immune status, antepartum History of pre-eclampsia in prior , currently Chronic hypertension during , antepartum Maternal obesity affecting , antepartum Iron deficiency Abnormal uterine bleeding Gallbladder disease Depression Anxiety Migraine Other abnormal clinical finding Pre-eclampsia superimposed on chronic hypertension Headache Gastroesophageal reflux disease Daytime somnolence Surgical History Status post repeat low transverse section History of laparoscopic cholecystectomy History of delivery Family History Other Cancer Family history of myocardial infarction Social History Smoking Status: Never smoker alcohol intake: never substance use type: denies use current occupational status: employed Travel in the last 8 weeks: None household members: family housing: house ROS Obtained: Yes Systems reviewed as appropriate & no additional complaints except as documented Physical Exam General General appearance: alert and in no apparent distress Head Head exam: atraumatic and normocephalic Eye Eye exam: Present PERRL ENT ENT exam: Present mucous membranes moist and other (Erythema in the external auditory canal on the right, positive pinna sign. No middle ear effusion on the right. No anterior effacement of the pinna or retroauricular swelling.) Neck Neck exam: Present normal inspection Chest Chest inspection: Present normal inspection and symmetric chest wall rise Respiratory Respiratory exam: Absent respiratory distress Cardiovascular Cardiovascular exam: Present regular rate and normal rhythm Abdominal Exam Abdominal exam: Present soft Extremities Exam Extremities exam: Present normal inspection Neurological Exam Neurological exam: Present alert; Absent motor sensory deficit Psychiatric Psychiatric exam: Present normal affect Skin Skin exam: Present warm and dry Medical Decision Making Randolph Inquiry Pt receiving controlled substance: No Vital Signs: 09/28/23 19:31 Temperature 97.8 F Temperature Source Oral Pulse Rate [Right] 84 Respiratory Rate 18 Blood Pressure [Right Arm] 138/87 Blood Pressure Mean [Right Arm] 104 02 Sat by Pulse Oximetry 100 Oxygen Delivery Method Room Air Medical Decision Narrative: In summary patient is a 22-year-old female past medical history described above who presents emergency department for evaluation of right ear pain. Clinically patient has otitis externa on the right. Patient has Ciprodex drops at home. She was instructed how to use these and will follow-up with ENT. She does not have any anterior effacement of her pinna or retroauricular swelling, no malocclusion of the jaw to suggest deep space infection or mastoiditis. Given this workup or labs and imaging was considered but will be deferred. Patient is appropriate for discharge at this time. Critical Care Critical Care Time Critical Care Time: No
[2023-09-28 20:01] VITALS: BP 138/72; PULSE 80; RESP 18; TEMP 36.6; O2SAT 100
== END 2023-09-28 20:04 | disposition home or self-care (01) ==
PROVIDERS: Emergency Provider Emergency Medicine; PCP Physician Assistant
DX: H60.91 Unspecified otitis externa, right ear (principal); H92.01 Otalgia, right ear
CPT/HCPCS: 99282

== ENCOUNTER 2023-10-08 08:26 | Outpatient (POV) | payer BC, SELFPAY | END 2023-10-08 23:59 | disposition home or self-care (01) | LOC: SC 08:26 | PROVIDERS: Visit Provider Specialist/Technologist | DX: Z00.00 Encounter for general adult medical examination without abnormal findings (principal) ==

== ENCOUNTER 2023-11-18 07:59 | Day surgery (SDC) | payer BC, SELFPAY ==
[2023-11-17 11:35] VITALS: BMI 47.9
[2023-11-18] VITALS (10 sets, daily range): BP systolic 108–144; BP diastolic 56–87; PULSE 61–88; RESP 16–18; TEMP 36.2–36.6; O2SAT 96–100
[2023-11-18] MEDS: LACTATED RINGERS 1000ML 1,000 ML 25 ML IV (08:21)
--- NOTE | 2023-11-18 08:32 | EXP.ANES.CKL ---
[facility] Disclaimer: The information contained in this section may have been updated after the patient was seen, as this information can be updated by other users. Medical History Left chronic serous otitis media Conductive hearing loss Otitis externa of left ear Left ear pain Hearing loss, left Candidal intertrigo depression Acute blood loss anemia 37 weeks gestation of Decreased movement affecting management of in third trimester Carpal tunnel syndrome during Screening for genetic disease carrier status Rubella non-immune status, antepartum History of pre-eclampsia in prior , currently Chronic hypertension during , antepartum Maternal obesity affecting , antepartum Iron deficiency Abnormal uterine bleeding Gallbladder disease Depression Anxiety Migraine Other abnormal clinical finding Pre-eclampsia superimposed on chronic hypertension Headache Gastroesophageal reflux disease Daytime somnolence Surgical History Status post repeat low transverse section History of laparoscopic cholecystectomy History of delivery Family History Other Cancer Family history of myocardial infarction Social History (Updated 11/18/23 @ 08:13 by Mila Britton RN) Smoking Status: Never smoker alcohol intake: never substance use type: denies use current occupational status: employed Travel in the last 8 weeks: None household members: family housing: house [facility] Anesthesia Checklist Patient Identification Patient Identification: Arm Band, Family and Verbal (Name & ) Structural Data Admitted From: Home Planned Operative Procedure/s: LT. Myringotomy Ear tube Consent for Planned Operative Procedure(s) Verified: Yes Verified Documents: Surgical Consent and History and Physical NPO Status Verified Time NPO: 19:00 Chart Verification Results Verified: CBC, BMP and HCG Additional verifications Patient : No Anesthesia Reactions: No Hx Blood Transfusions: No Blood Transfusion Reaction: No Cardiovascular Assessment Heart Sounds: S1 & S2 Pulse Rhythm: Irregular Peripheral Edema: No Airway Assessment Mallampati Score:: Class II C-Spine Mobility Assessed: Yes (FROM) TMJ Mobility Assessed: Yes Dentition: Good Dentition (Nothing loose per pt.) Neurological Assessment Level of Consciousness: Awake, Alert, Appropriate and Follows Commands Hx Seizures: No Numbness or tingling in extremities: No Anesthesia Plan Anesthesia Risk discussed: Yes Anesthesia Plan: Verified ASA Class: III Anesthesia Type: General (Discussed deep sedation as well.)
[2023-11-18 08:34] LABS: Urine Pregnancy, HCG Qual. Negative (Negative)
--- NOTE | 2023-11-18 10:19 | P.OP_ITS ---
Date of procedure: 11/18/23 Pre-op Diagnosis:: Chronic serous otitis media left ear Post-op Diagnosis:: Chronic serous otitis media left ear Procedure performed:: Left tympanostomy and tube placement Surgeon:: Giovanni Ritter MD ELECTRONIC ENGRAVER:: Manolo Dean Anesthesia: GETA Estimated blood loss (mL): 0 Operative findings:: Mild otitis media left ear Operative note:: The patient was brought to the operating room and after adequate general anesthesia the left ear was draped in the usual sterile fashion and operating microscope employed to visualize the left tympanic membrane. A tympanostomy was made in the anterior-inferior quadrant and suction employed to clear the middle ear space effusion. A router bobbin tube was then placed and Ciprodex drops applied and the procedure concluded. All counts correct and blood loss 0 Condition: stable Disposition: PACU Complications:: No complications
--- NOTE | 2023-11-18 10:29 | EXP.ANES.I ---
[facility] Anesthesia Record Part I Anesthesia Record I Intake, IV Amount: 500 Hydration: Adequate Estimated blood loss (mL): 0 Urine output (mL): 0 Blood Products used (#): none Blood Pressure: 114/65 SaO2: 98 Pulse Rate: 64 Airway Patency: Patent Respiratory Rate: 16 Temperature: 97.6 F Patient is:: Drowsy and Stable Stable to PACU at:: 10:20
[2023-11-18] MEDS: KETOROLAC 30MG/ML VIAL 30 MG IV (10:40)
--- NOTE | 2023-11-18 11:08 | EXP.ANES.II ---
[facility] Anesthesia Record Part II Anesthesia Record Part II Discharge Time: 10:50 Destination: Surgical Day Care (OP Surgery) PACU nurse assessment reviewed?: Yes Patient Condition:: Good Anesthesia Complications:: None Swallowing reflex intact?: Yes Airway Patency: Patent Cyanosis?: No Blood Pressure: 125/87 SaO2: 100 Respiratory Rate: 18 Pulse Rate: 61 Temperature: 97.8 F Mental Status: Alert & Oriented Pain level:: 7 Nausea and/or vomitting:: None Intake, IV Amount: 0 Hydration: Adequate
== END 2023-11-18 11:21 | disposition home or self-care (01) ==
PROVIDERS: Nurse Practitioner; PCP Physician Assistant; Visit Provider Otolaryngology
PROC: (CPT 69436; principal; 2023-11-18 09:30)
DX: H65.22 Chronic serous otitis media, left ear (principal)
CPT/HCPCS: 69436; 81025; J1100; J1885; J2250; J2405; J3010; J7120

== ENCOUNTER 2023-11-24 09:52 | Outpatient (CLI) | payer BC, SELFPAY | END 2023-11-24 23:59 | disposition home or self-care (01) | LOC: LAB.DROPOF 11-26 09:53 | PROVIDERS: PCP Physician Assistant; Visit Provider Otolaryngology | DX: H65.22 Chronic serous otitis media, left ear (principal); H92.02 Otalgia, left ear | CPT/HCPCS: 87070; 87077; 87186 ==

== ENCOUNTER 2023-12-03 20:15 | Emergency (ER) | payer BC, SELFPAY ==
[2023-12-03 20:16] VITALS: BP 118/59; PULSE 96; RESP 20; TEMP 36.6; O2SAT 100; BMI 47.3
--- NOTE | 2023-12-03 20:32 | CT_ITS ---
PROCEDURE INFORMATION: Exam: CT Temporal Bones With Contrast. Exam date and time: 12/03/2023 10:08 PM Age: 23 years old Clinical indication: Other: Left ear pain; Additional info: Left refractory ear pain, swelling TECHNIQUE: Imaging protocol: Computed tomography of the temporal bones with contrast. Radiation optimization: All CT scans at this facility use at least one of these dose optimization techniques: automated exposure control; mA and/or kV adjustment per patient size (includes targeted exams where dose is matched to clinical indication); or iterative reconstruction. Contrast material: ISOVUE; Contrast volume: 75 ml; Contrast route: IV; COMPARISON: CT TEMPORAL BONE WITH 09/03/2023 7:09 PM FINDINGS: Right inner ear: Normal. Right ossicles and middle ear: Normal. The middle ear ossicles are intact. Right external auditory canal: Normal. Right facial nerve canal: Normal. Right jugular foramen: No jugular dehiscence. Right carotid canal: No aberrant carotid canal. Right mastoid air cells: Normal. No mastoid effusions. Left inner ear: Normal. Left ossicles and middle ear: There is abundant soft tissue density within the middle ear which has significantly progressed since the prior study. The middle ear ossicles are intact. Left external auditory canal: There are inflammatory changes of the external auditory canal. Left facial nerve canal: Normal. Left jugular foramen: No jugular dehiscence. Left carotid canal: No aberrant carotid canal. Left mastoid air cells: Diffuse significant opacification of the mastoid air cells. Soft tissues: Unremarkable. IMPRESSION: Significant left otitis media and mastoiditis with associated inflammatory changes of the external auditory canal. No osseous erosions are evident. No abscess formation is noted.
--- NOTE | 2023-12-03 20:36 | HMH.EDGENADL ---
Discharge Plan Disposition Patient Disposition: Home, Self-Care Prescriptions Prescriptions: No Action ferrous sulfate 325 mg (65 mg iron) tablet 325 mg PO TID Classic 28 mg iron- 800 mcg tablet 1 tab PO DAILY sulfamethoxazole-trimethoprim [Bactrim DS] 800-160 mg tablet 1 tab PO BID 10 Days Qty: 20 0RF tobramycin-dexamethasone [TobraDex] 0.3-0.1 % drops,suspension 4 drp ophthalmic (eye) BID 10 Days Qty: 5 0RF Rx Instructions: Patient to use in LEFT EAR hydrochlorothiazide 12.5 mg capsule 12.5 mg PO DAILY venlafaxine 37.5 mg capsule,extended release 24hr 37.5 mg PO DAILY Qty: 30 2RF Wegovy 0.25 mg/0.5 mL Pen Injector 0.25 mg SQ WEEKLY Rx Instructions: administer weeks 1 through 4 of therapy Referrals Follow up/Referrals: Nicci Baker PA [Primary Care Provider] - See instructions Activity Restrictions/Add. Instructions Additional Instructions/Restrictions: I discussed the case with Dr. Reina with [facility], [place] who stated that he would like to see you in his clinic tomorrow morning between 8 and noon. The phone number for his clinic is [phone]. The most likely plan will be to establish a PICC line and start you on IV antibiotics have infectious disease arranged and likely schedule outpatient surgery if he feels like it is indicated. Please make sure that you take your CT scan with images on this. Clinical Impressions Clinical Impression: Otitis media, Cellulitis of face, Drug (multiple) resistant infection, Mastoiditis Discharge ED Provider: Evan Mao General Adult HPI General Chief complaint: Ear Stated complaint: ear ache facial swelling Time Seen by Provider: 12/03/23 20:16 History of Present Illness HPI narrative: Patient is a 23-year-old female presents today with refractory pain and swelling on the left side of her face and ear after extensive evaluation and treatment for an ear infection. I actually saw this patient in August when she been symptomatic for many days and had a temporal bone CT scan which showed mastoiditis and she had significant ear effusion and infection at that point she was started on antibiotics and followed up with ENT. She has been on multiple different antibiotic regimens since that time and most recently had an ear tube placed on the left with culture that was sent from purulent debris which grew Achromobacter which was multidrug-resistant and Serratia marcescens. Both of these were susceptible to oral Bactrim patient was started on oral Bactrim and has had that course extended and also has been on TobraDex drops without any improvement in her symptoms. She actually saw ENT today but her facial pain and swelling has gotten worse she states that she has ongoing purulent debris and has had complete hearing loss in the left ear. She states that she is just exhausted and that she is not improving which is why she came to the emergency department today. Related Data Home Medications Medication Instructions Recorded Confirmed ferrous sulfate 325 mg (65 mg 325 mg PO TID Supplement 07/10/22 12/03/23 iron) tablet vits no.126-ferrous fum 1 tab PO DAILY 05/23/23 12/03/23 28 mg iron-folic acid 800 mcg tablet (Classic ) hydrochlorothiazide 12.5 mg capsule 12.5 mg PO DAILY 06/04/23 12/03/23 semaglutide (weight loss) 0.25 0.25 mg SQ WEEKLY 11/17/23 12/03/23 mg/0.5 mL subcutaneous pen injector (Wegovy) Previous Rx's Medication Instructions Recorded venlafaxine 37.5 mg 37.5 mg PO DAILY #30 caps 09/05/23 capsule,extended release 24 hr sulfamethoxazole 800 1 tab PO BID 10 days #20 tabs 12/03/23 mg-trimethoprim 160 mg tablet (Bactrim DS) tobramycin 0.3 %-dexamethasone 0.1 4 drp ophthalmic (eye) BID 10 days 12/03/23 % eye drops,suspension (TobraDex) #5 mL Allergies Allergy/AdvReac Type Severity Reaction Status Date / Time No Known Allergies Allergy Verified 12/03/23 15:02 [facility] Disclaimer: The information contained in this section may have been updated after the patient was seen, as this information can be updated by other users. Medical History (Updated 12/03/23 @ 22:45 by Evan Mao MD) Acute otitis media with effusion of left ear History of recurrent ear infection Hearing loss Fluid level behind tympanic membrane Ear infection Left chronic serous otitis media Conductive hearing loss Otitis externa of left ear Left ear pain Hearing loss, left Candidal intertrigo depression Acute blood loss anemia 37 weeks gestation of Decreased movement affecting management of in third trimester Carpal tunnel syndrome during Screening for genetic disease carrier status Rubella non-immune status, antepartum History of pre-eclampsia in prior , currently Chronic hypertension during , antepartum Maternal obesity affecting , antepartum Iron deficiency Abnormal uterine bleeding Gallbladder disease Depression Anxiety Migraine Other abnormal clinical finding Pre-eclampsia superimposed on chronic hypertension Headache Gastroesophageal reflux disease Daytime somnolence Surgical History Status post repeat low transverse section History of laparoscopic cholecystectomy History of delivery Family History Other Cancer Family history of myocardial infarction Social History Smoking Status: Never smoker alcohol intake: never substance use type: denies use current occupational status: employed Travel in the last 8 weeks: None household members: family housing: house ROS Obtained: Yes All systems reviewed & no additional complaints except as documented Physical Exam General General appearance: alert and in no apparent distress ENT ENT exam: Present other (ChestSignificant mucopurulent debris there is inflammation and erythema of the tympanic membrane surrounding the tympanostomy tube that is currently in place. Tenderness on the left face and mastoid air cell location) Respiratory Respiratory exam: Present normal lung sounds bilaterally Cardiovascular Cardiovascular exam: Present regular rate and normal rhythm Neurological Exam Neurological exam: Present alert and oriented X3 Medical Decision Making Randolph Inquiry Pt receiving controlled substance: No Vital Signs: 12/03/23 20:16 12/03/23 21:35 Temperature 97.9 F Temperature Source Oral Pulse Rate 94 H Pulse Rate [Right Radial] 96 H Respiratory Rate 20 Blood Pressure 121/70 Blood Pressure [Right Arm] 118/59 L Blood Pressure Mean [Right Arm] 78 02 Sat by Pulse Oximetry 100 98 Oxygen Delivery Method Room Air Lab Data Lab results reviewed: Yes I reviewed the patient's lab results. Lab Results 12/03/23 21:20: WBC 9.4, RBC 4.92, Hgb 11.7 L, Hct 36.1 L, MCV 73.3 L, MCH 23.9 L, MCHC 32.5, RDW 16.1, Plt Count 302, MPV 8.3, Neut % (Auto) 71.4, Lymph % (Auto) 22.3, [place] % (Auto) 3.9, Eos % (Auto) 1.7, Baso % (Auto) 0.7, Neut # (Auto) 6.7, Lymph # (Auto) 2.1, [place] # (Auto) 0.4, Eos # (Auto) 0.2, Baso # (Auto) 0.1, ESR 16, Sodium 141, Potassium 3.7, Chloride 107, Carbon Dioxide 28, Anion Gap 9.7, BUN 14, Creatinine 0.90, Estimated Creat Clear 105, Estimated GFR 78, Est GFR ( Amer) 94, Glucose 85, Lactate 1.0, Calcium 9.2, Total Bilirubin 0.5, AST 28, ALT 35, Alkaline Phosphatase 65, C-Reactive Protein 21.1 H, Total Protein 7.4, Albumin 4.1, Globulin 3.3 H, Albumin/Globulin Ratio 1.2, Serum HCG, Qual Negative 12/03/23 21:20 12/03/23 21:20 Orders (Tests/Meds): ED MEDICATIONS Generic Name Dose Route Start Last Admin Trade Name Freq PRN Reason Stop Dose Admin Sodium Chloride 10 ml 12/03/23 22:12 12/03/23 22:13 Sodium Chloride 0.9% 10ml Syr (Rad Only) IV 01/02/24 22:11 10 ml NEEDED PRN Administration Maintain IV Site Discontinued Medications Generic Name Dose Route Start Last Admin Trade Name Freq PRN Reason Stop Dose Admin Acetaminophen 1,000 mg 12/03/23 20:32 12/03/23 21:24 Acetaminophen 1,000mg/100ml Vial IV 12/03/23 20:33 1,000 mg ONCE ONE Administration Lactated Ringer's 1,000 mls @ 999 mls/hr 12/03/23 20:45 12/03/23 21:23 Lactated Ringer's 1000 Ml Bag IV 12/03/23 21:45 999 mls/hr .Q1H1M [place] Administration Piperacillin Sod/Tazobactam 100 mls @ 200 mls/hr 12/03/23 20:34 12/03/23 21:51 Sod 4.5 gm/ Sodium Chloride IV 12/03/23 21:03 200 mls/hr ONCE ONE Administration Iopamidol 75 ml 12/03/23 22:12 12/03/23 22:13 Iopamidol-370 (76%);100ml Bottle IV 12/03/23 22:13 75 ml ONCE ONE Administration ORDERS Category Date Time Status CT Temporal bone With Stat Cat Scan 12/03/23 20:32 Taken CBC w/Auto Diff [Complete Blood Count Auto Diff] Stat Lab 12/03/23 21:20 Completed CMP [Comprehensive Metabolic Panel] Stat Lab 12/03/23 21:20 Completed CRP [C-Reactive Protein] Stat Lab 12/03/23 21:20 Completed ESR [Erythrocyte Sedimentation Rate] Stat Lab 12/03/23 21:20 Completed Lactic Acid Stat Lab 12/03/23 21:20 Completed Serum [HCG Qualitative, Serum] Stat Lab 12/03/23 21:20 Completed Blood Culture Stat Micro 12/03/23 20:33 Received Medical Decision Narrative: Patient is a 23-year-old female with above history and physical with clinical ongoing signs and symptoms of otitis media with effusion and tympanostomy tube that is in place as well as facial cellulitis and tenderness over the mastoid air cells. At a minimum this is a refractory infection with multidrug-resistant organisms. I did look at the susceptibilities and she will be started on Zosyn which was a medication that both organisms seem to be susceptible to at least in vitro. I am also concerned about bony erosion and osteomyelitis recurrent or worsening mastoiditis as well as intracranial extension of an infection. Will reassess after initial workup is complete. I am leaning towards transferring this patient where she can have inpatient infectious disease evaluate her and IV antibiotics. Reassessment CT scan performed which I first interpreted which shows persistent middle ear effusion also extensive opacification of the mastoid air cells on the left I do not see any bony erosion or any type of empyema or intracranial abscess or extension. Awaiting radiology read but she definitely is getting worse from a clinical standpoint and radiographically IV fluids and IV antibiotics have been administered she has been given Zosyn in the emergency department. She would like to be transferred to [facility], [place] for evaluation by infectious disease as well as ENTM patient in to be treated with IV antibiotics. I spoke with Dr. Reina from [facility] and after discussing the case he states he can see the patient tomorrow in clinic at which point he will establish a PICC line have infectious disease arranged as well as possibly schedule the patient for surgery. I discussed this with the patient and she is very happy with this plan. CT scan with images were printed on a disc for her to take as well as culture reports and sensitivities to take to her surgeon as well. She is very stable clinically. There is no evidence of any empyema or bony erosion on my personal interpretation. No indication for emergent surgical intervention at the moment. She was discharged in improved and stable condition and will follow closely with Dr. Reina tomorrow. Critical Care Critical Care Time Critical Care Time: Yes Attestation: On 12/03/23, the high probability of a clinically significant, sudden or life threatening deterioration of the following system(s) required my full and direct attention, intervention and personal management. The time I documented below is in addition to time spent performing reported procedures but includes the following listed in this critical care notation. Total Time Total Critical Care Time: 35
[2023-12-03 20:57] VITALS: BMI 47.3
--- NOTE | 2023-12-03 21:15 | PC.NURSE ---
Collected blood cultures and sent to the lab
[2023-12-03] MEDS: LACTATED RINGERS 1000ML 1,000 ML 999 ML IV (21:23)
[2023-12-03] MEDS: ACETAMINOPHEN 1,000MG/100ML VIAL 1000 MG IV (21:24)
[2023-12-03 21:35] VITALS: BP 121/70; PULSE 94; O2SAT 98
[2023-12-03 21:40] LABS: Basophils # 0.1 K/mm3 (0-0.2); Basophils % 0.7 % (0.1-2.0); Eosinophils # 0.2 K/mm3 (0.0-0.4); Eosinophils % 1.7 % (0.1-12.0); Hematocrit 36.1 % (37.0-47.0); Hemoglobin 11.7 g/dL (12.2-16.2); Lymphocytes # 2.1 K/mm3 (0.7-4.5); Lymphocytes % 22.3 % (10-50); Mean Corpuscular HGB Conc 32.5 g/dL (31.8-35.4); Mean Corpuscular Hemoglobin 23.9 pg (27.0-31.2); Mean Corpuscular Volume 73.3 fl (81-99); Mean Platelet Volume 8.3 fl (7.4-10.4); Monocytes # 0.4 K/mm3 (0.1-1.0); Monocytes % 3.9 % (1.7-9.3); Neutrophils # 6.7 K/mm3 (1.8-7.8); Neutrophils % 71.4 % (37.0-80.0); Platelet Count 302 K/mm3 (142-424); Red Blood Count 4.92 M/mm3 (4.20-5.40); Red Cell Distribution Width 16.1 % (11.5-17.5); White Blood Count 9.4 K/mm3 (4.8-10.8)
[2023-12-03 21:48] LABS: Chloride 107 mmol/L (98-107); Potassium 3.7 mmoL/L (3.5-5.1); Sodium 141 mmol/L (136-145)
[2023-12-03 21:50] LABS: Alanine Aminotransferase 35 U/L (12-78); Alkaline Phosphatase 65 U/L (38-126); Aspartate Amino Transferase 28 U/L (14-36); Bilirubin,Total 0.5 mg/dl (0.2-1.3); Blood Urea Nitrogen 14 mg/dl (7-17); Creatinine Clearance Estimated 105 mL/min (50-200); Estimated Glomerular Filt Rate 78 ml/min (>60); GFR (African American) 94 ML/MIN (>60)
[2023-12-03 21:51] LABS: Albumin Level 4.1 g/dl (3.5-5.0); Albumin/Globulin Ratio 1.2 (1.1-1.8); Anion Gap 9.7 mEq/L (5-15); Calcium 9.2 mg/dl (8.4-10.2); Carbon Dioxide 28 mmol/L (22.0-30.0); Globulin 3.3 g/dL (1.3-3.2); Glucose 85 mg/dl (74-100); Total Protein,Serum 7.4 g/dl (6.3-8.2)
[2023-12-03] MEDS: PIPERACILLIN/TAZO 4.5 GM in 0.9 % SODIUM CHLORIDE 100 ML IV (21:51)
[2023-12-03 21:52] LABS: HCG Qualitative, Serum Negative (Negative)
[2023-12-03 21:56] LABS: C-Reactive Protein 21.1 mg/L (0-4)
[2023-12-03] MEDS: IOPAMIDOL-370 (76%);100ML BOTTLE 75 ML IV (22:13)
[2023-12-03] MEDS: SODIUM CHLORIDE 0.9% 10ML SYR (RAD ONLY) 10 ML IV (22:13)
--- NOTE | 2023-12-03 22:24 | PC.NURSE ---
Call made to [facility], spoke with Kassie, she will check to see if they have anyone to treat for mastoiditis and call us back
[2023-12-03 22:29] LABS: Erythrocyte Sedimentation Rate 16 mm/hr (0-20)
--- NOTE | 2023-12-03 22:29 | PC.NURSE ---
ED doctor on phone with ENT @ [facility]
--- NOTE | 2023-12-03 22:42 | PC.NURSE ---
facesheet faxed to [facility] and confirmation received
[2023-12-03 23:00] VITALS: BP 120/67; PULSE 87; RESP 18; TEMP 36.7; O2SAT 96
== END 2023-12-03 23:01 | disposition home or self-care (01) ==
PROVIDERS: Emergency Provider Student in an Organized Health Care Education/Training Program; PCP Physician Assistant
DX: L03.211 Cellulitis of face (principal); H66.42 Suppurative otitis media, unspecified, left ear; H70.92 Unspecified mastoiditis, left ear; Z16.24 Resistance to multiple antibiotics
CPT/HCPCS: 70481; 80053; 83605; 84703; 85025; 85651; 86140; 87040; 96365; 96375; 99285; J0131; J2543; J7120; Q9967

== ENCOUNTER 2023-12-11 08:01 | Outpatient (CLI) | payer BC, SELFPAY ==
[2023-12-11 08:18] LABS: Basophils # 0.1 K/mm3 (0-0.2); Basophils % 0.9 % (0.1-2.0); Eosinophils # 0.1 K/mm3 (0.0-0.4); Eosinophils % 1.6 % (0.1-12.0); Hematocrit 31.9 % (37.0-47.0); Hemoglobin 11.6 g/dL (12.2-16.2); Lymphocytes # 1.7 K/mm3 (0.7-4.5); Lymphocytes % 23.8 % (10-50); Mean Corpuscular HGB Conc 36.4 g/dL (31.8-35.4); Mean Corpuscular Hemoglobin 26.5 pg (27.0-31.2); Mean Corpuscular Volume 72.9 fl (81-99); Mean Platelet Volume 8.2 fl (7.4-10.4); Monocytes # 0.3 K/mm3 (0.1-1.0); Monocytes % 4.9 % (1.7-9.3); Neutrophils # 4.8 K/mm3 (1.8-7.8); Neutrophils % 68.8 % (37.0-80.0); Platelet Count 273 K/mm3 (142-424); Red Blood Count 4.38 M/mm3 (4.20-5.40); Red Cell Distribution Width 16.2 % (11.5-17.5); White Blood Count 6.9 K/mm3 (4.8-10.8)
[2023-12-11 08:27] LABS: Alanine Aminotransferase 35 U/L (12-78); Albumin Level 3.9 g/dl (3.5-5.0); Albumin/Globulin Ratio 1.1 (1.1-1.8); Alkaline Phosphatase 75 U/L (38-126); Anion Gap 10.2 mEq/L (5-15); Aspartate Amino Transferase 29 U/L (14-36); Bilirubin,Total 0.5 mg/dl (0.2-1.3); Blood Urea Nitrogen 11 mg/dl (7-17); Calcium 9.2 mg/dl (8.4-10.2); Carbon Dioxide 23 mmol/L (22.0-30.0); Chloride 111 mmol/L (98-107); Estimated Glomerular Filt Rate 89 ml/min (>60); GFR (African American) 108 ML/MIN (>60); Globulin 3.4 g/dL (1.3-3.2); Glucose 95 mg/dl (74-100); Potassium 4.2 mmoL/L (3.5-5.1); Sodium 140 mmol/L (136-145); Total Protein,Serum 7.3 g/dl (6.3-8.2)
[2023-12-11 08:32] LABS: C-Reactive Protein 11.7 mg/L (0-4)
[2023-12-11 11:02] LABS: Erythrocyte Sedimentation Rate 48 mm/hr (0-20)
== END 2023-12-11 23:59 | disposition home or self-care (01) ==
LOC: LAB 08:02
PROVIDERS: PCP Physician Assistant; Visit Provider Internal Medicine Infectious Disease
DX: B96.89 Other specified bacterial agents as the cause of diseases classified elsewhere (principal); R22.0 Localized swelling, mass and lump, head; H66.91 Otitis media, unspecified, right ear; H70.12 Chronic mastoiditis, left ear
CPT/HCPCS: 36415; 80053; 85025; 85651; 86140

== ENCOUNTER 2023-12-16 16:50 | Emergency (ER) | payer BC, SELFPAY ==
[2023-12-16 16:52] VITALS: BP 155/101; PULSE 96; RESP 16; TEMP 36.7; O2SAT 98; BMI 47.3
--- NOTE | 2023-12-16 16:55 | ED_ITS ---
<Statement entered by Lisa Robledo DO - 12/16/23 19:50> I was consulted by the YVROSE, and we discussed the complexity of the problems being addressed. I approved the treatment and management plan for this patient's care in the emergency department, thus performing a substantive portion of the medical decision making. Lisa Robledo DO Discharge Plan Disposition Patient Disposition: Home, Self-Care Condition: Good Prescriptions Prescriptions: No Action ferrous sulfate 325 mg (65 mg iron) tablet 325 mg PO TID Classic 28 mg iron- 800 mcg tablet 1 tab PO DAILY sulfamethoxazole-trimethoprim [Bactrim DS] 800-160 mg tablet 1 tab PO BID 10 Days Qty: 20 0RF tobramycin-dexamethasone [TobraDex] 0.3-0.1 % drops,suspension 4 drp ophthalmic (eye) BID 10 Days Qty: 5 0RF Rx Instructions: Patient to use in LEFT EAR hydrochlorothiazide 12.5 mg capsule 12.5 mg PO DAILY venlafaxine 37.5 mg capsule,extended release 24hr 37.5 mg PO DAILY Qty: 30 2RF Wegovy 0.25 mg/0.5 mL Pen Injector 0.25 mg SQ WEEKLY Rx Instructions: administer weeks 1 through 4 of therapy Referrals Follow up/Referrals: Nicci Baker PA [Primary Care Provider] - See instructions Activity Restrictions/Add. Instructions Additional Instructions/Restrictions: Follow-up with your PCP and ENT for any worsening signs or symptoms including numbness tingling loss of motor or sensory of your left upper extremity. Return to ER as needed for worsening signs or symptoms as needed. Continue taking Tylenol 1000 mg alternating with 800 mg of Motrin every 4 hours for at least the next 24 to see if it improves her symptoms. Clinical Impressions Clinical Impression: Acute neck pain Instructions Patient Instructions: DI for Neck Pain Print Language Print Language: Romansh Discharge ED Provider: Lisa Robledo General Adult HPI General Chief complaint: PAIN Stated complaint: Left ear pain radiating down left arm Time Seen by Provider: 12/16/23 16:55 History of Present Illness HPI narrative: Patient presents for evaluation of left neck pain that radiates down her arm. Patient has a significant past medical history of otitis media that had progressed to mastoiditis. She has been evaluated both by ENT and infectious disease. She has a PICC line and is currently receiving Zosyn 3 times a day. Patient reports that yesterday that she has had a new onset of left neck pain that radiates down into her left arm. She has tried conservative measures including muscle relaxer Toradol ibuprofen and Motrin orally without relief. She denies change in sensorium headache fever chills dizziness. This is different than any pain that she has had although she has had significant ear pain since August when she was first diagnosed. Related Data Home Medications ?Medication ?Instructions ?Recorded ?Confirmed ferrous sulfate 325 mg (65 mg 325 mg PO TID Supplement 07/10/22 12/03/23 iron) tablet vits no.126-ferrous fum 1 tab PO DAILY 05/23/23 12/03/23 28 mg iron-folic acid 800 mcg tablet (Classic ) hydrochlorothiazide 12.5 mg capsule 12.5 mg PO DAILY 06/04/23 12/03/23 semaglutide (weight loss) 0.25 0.25 mg SQ WEEKLY 11/17/23 12/03/23 mg/0.5 mL subcutaneous pen injector (Karie) Previous Rx's ?Medication ?Instructions ?Recorded venlafaxine 37.5 mg 37.5 mg PO DAILY #30 caps 09/05/23 capsule,extended release 24 hr sulfamethoxazole 800 1 tab PO BID 10 days #20 tabs 12/03/23 mg-trimethoprim 160 mg tablet (Bactrim DS) tobramycin 0.3 %-dexamethasone 0.1 4 drp ophthalmic (eye) BID 10 days 12/03/23 % eye drops,suspension (TobraDex) #5 mL Allergies Allergy/AdvReac Type Severity Reaction Status Date / Time No Known Allergies Allergy Verified 12/03/23 15:02 [facility] Disclaimer: The information contained in this section may have been updated after the patient was seen, as this information can be updated by other users. Medical History (Updated 12/16/23 @ 19:28 by MONA Hoyos) Acute otitis media with effusion of left ear History of recurrent ear infection Hearing loss Fluid level behind tympanic membrane Ear infection Left chronic serous otitis media Conductive hearing loss Otitis externa of left ear Left ear pain Hearing loss, left Candidal intertrigo depression Acute blood loss anemia 37 weeks gestation of Decreased movement affecting management of in third trimester Carpal tunnel syndrome during Screening for genetic disease carrier status Rubella non-immune status, antepartum History of pre-eclampsia in prior , currently Chronic hypertension during , antepartum Maternal obesity affecting , antepartum Iron deficiency Abnormal uterine bleeding Gallbladder disease Depression Anxiety Migraine Other abnormal clinical finding Pre-eclampsia superimposed on chronic hypertension Headache Gastroesophageal reflux disease Daytime somnolence Surgical History Status post repeat low transverse section History of laparoscopic cholecystectomy History of delivery Family History Other Cancer Family history of myocardial infarction Social History Smoking Status: Unknown if ever smoked alcohol intake: never substance use type: denies use current occupational status: employed Travel in the last 8 weeks: None household members: family housing: house ROS Obtained: Yes Systems reviewed as appropriate & no additional complaints except as documented Physical Exam General General appearance: alert and in no apparent distress Head Head exam: atraumatic and normal inspection Eye Eye exam: Present normal appearance and EOMI ENT ENT exam: Present normal exam, normal oropharynx and mucous membranes moist Neck Neck exam: Present normal inspection (No erythema edema induration noted externally around the ear or down to the neck), full ROM (Tenderness to the left neck with range of motion) and tenderness; Absent lymphadenopathy Chest Chest inspection: Present normal inspection Respiratory Respiratory exam: Present normal lung sounds bilaterally Cardiovascular Cardiovascular exam: Present regular rate and normal rhythm Extremities Exam Extremities exam: Present normal inspection; Absent tenderness Back Exam Back exam: Present normal inspection and full ROM; Absent tenderness Neurological Exam Neurological exam: Present alert, oriented X3 and CN II-XII intact Skin Skin exam: Present warm, dry and normal color Medical Decision Making Medical Records Medical records reviewed: Yes I reviewed the patient's medical records. [place] Inquiry Pt receiving controlled substance: No Vital Signs: 12/16/23 16:52 12/16/23 16:59 12/16/23 17:31 Temperature 98.0 F Temperature Source Oral Pulse Rate 99 H 94 H Pulse Rate [Radial] 96 H Respiratory Rate 16 Blood Pressure 155/101 H 135/83 Blood Pressure [Right Arm] 155/101 H Blood Pressure Mean [Right Arm] 119 Blood Pressure Source Blood Pressure Source [Right Arm] Automatic Cuff Blood Pressure Position Blood Pressure Position [Right Arm] Sitting 02 Sat by Pulse Oximetry 98 96 98 Oxygen Delivery Method Room Air Room Air Room Air 12/16/23 18:00 12/16/23 19:36 Temperature 97.8 F Temperature Source Oral Pulse Rate 95 H 68 Pulse Rate [Radial] Respiratory Rate 16 Blood Pressure 140/89 136/96 H Blood Pressure [Right Arm] Blood Pressure Mean [Right Arm] Blood Pressure Source Automatic Cuff Blood Pressure Source [Right Arm] Blood Pressure Position Sitting Blood Pressure Position [Right Arm] 02 Sat by Pulse Oximetry 99 Oxygen Delivery Method Room Air Room Air Lab Data Lab results reviewed: Yes I reviewed the patient's lab results. Lab Results 12/16/23 17:19: WBC 9.4, RBC 4.75, Hgb 11.6 L, Hct 35.3 L, MCV 74.4 L, MCH 24.5 L, MCHC 33.0, RDW 16.7, Plt Count 263, MPV 8.4, Neut % (Auto) 68.3, Lymph % (Auto) 23.3, [place] % (Auto) 4.6, Eos % (Auto) 3.2, Baso % (Auto) 0.6, Neut # (Auto) 6.4, Lymph # (Auto) 2.2, [place] # (Auto) 0.4, Eos # (Auto) 0.3, Baso # (Auto) 0.1, Sodium 139, Potassium 3.9, Chloride 108 H, Carbon Dioxide 24, Anion Gap 10.9, BUN 11, Creatinine 0.70, Estimated Creat Clear 135, Estimated GFR 104, Est GFR ( Amer) 125, Glucose 96, Calcium 9.4, Procalcitonin < 0.030, Serum HCG, Qual Negative 12/16/23 17:19 12/16/23 17:19 Orders (Tests/Meds): ED MEDICATIONS Discontinued Medications Generic Name Dose Route Start Last Admin Trade Name Freq PRN Reason Stop Dose Admin Iopamidol 75 ml 12/16/23 18:31 12/16/23 18:34 Iopamidol-370 (76%);100ml Bottle IV 12/16/23 18:32 75 ml ONCE ONE Administration Oxycodone HCl 5 mg 12/16/23 17:06 12/16/23 17:15 Oxycodone 5mg Immediate Release Tablet PO 12/16/23 17:07 5 mg ONCE ONE Administration Sodium Chloride 10 ml 12/16/23 18:31 12/16/23 18:34 Sodium Chloride 0.9% 10ml Syr (Rad Only) IV 01/15/24 18:30 10 ml NEEDED PRN Administration Maintain IV Site ORDERS Category Date Time Status CT Temporal bone With Stat Cat Scan 12/16/23 17:[address] cervical spine w con Stat Cat Scan 12/16/23 17:[address] soft tissue neck w con Stat Cat Scan 12/16/23 17:46 Completed BMP [Basic Metabolic Panel] Stat Lab 12/16/23 17:19 Completed CBC w/Auto Diff [Complete Blood Count Auto Diff] Stat Lab 12/16/23 17:19 Completed Procalcitonin Stat Lab 12/16/23 17:19 Completed Serum [HCG Qualitative, Serum] Stat Lab 12/16/23 17:19 Completed Medical Decision Narrative: In summary patient is a in summary patient is a [age, sex] who presents to the emergency department for evaluation of left neck pain. Patient is hypertensive with a blood pressure of 155/101 heart rate 96 O2 sat 98% on room air with respiratory rate of 16 upon arrival, afebrile. Physical exam is remarkable for tenderness to palpation in the left neck trapezius muscles. There is no visible swelling edema erythema induration fluctuance noted. Patient is neurovascularly intact distally in the left upper extremity and does have full range of motion although any motion of the shoulder or neck causes increased discomfort to the patient. Differential diagnosis includes cervical radiculopathy versus worsening infection in the deep spaces versus bony involvement of the C-spine etc. Initial workup will be conducted with hematologic labs CT scan of the C-spine temporal bone and soft tissue of the neck. Initial interventions would normally include multimodal regimen but patient has had a muscle relaxer Toradol and Tylenol within the last 4 hours without relief. Will give the patient a one- time dose of opiates orally. Her initial workup shows reassuring labs with no actionable abnormalities. My informal interpretation of her imaging shows no acute processes and radiologist reads that her interval change in her mastoiditis since the shows good reduction. We have essentially ruled out any serious acute or life-threatening problem in the emergency department. I had interactive discussion with the patient regarding next steps. She had only minor improvement after administration of opiate. I have encouraged her to follow-up with her PCP/ENT if she has any progression of her symptoms including loss of motor or sensory or neuropathies as she may need MRI for further evaluation of the structures of the neck and cervical spine. The patient directed decision making she is elected to not proceed with steroids given her ongoing infection and antibiotic therapies. Given this patient is appropriate for discharge at this time with instructions to start taking Tylenol alternating with Motrin scheduled for 24 hours to see if that improves her symptoms. Patient verbalized understanding and agreement. Critical Care Critical Care Time Critical Care Time: No
[2023-12-16 16:59] VITALS: BP 155/101; PULSE 99; O2SAT 96
[2023-12-16] MEDS: OXYCODONE 5MG IMMEDIATE RELEASE TABLET 5 MG PO (17:15)
[2023-12-16 17:31] VITALS: BP 135/83; PULSE 94; O2SAT 98
[2023-12-16 17:33] LABS: Basophils # 0.1 K/mm3 (0-0.2); Basophils % 0.6 % (0.1-2.0); Eosinophils # 0.3 K/mm3 (0.0-0.4); Eosinophils % 3.2 % (0.1-12.0); Hematocrit 35.3 % (37.0-47.0); Hemoglobin 11.6 g/dL (12.2-16.2); Lymphocytes # 2.2 K/mm3 (0.7-4.5); Lymphocytes % 23.3 % (10-50); Mean Corpuscular Hemoglobin 24.5 pg (27.0-31.2); Mean Corpuscular Volume 74.4 fl (81-99); Mean Platelet Volume 8.4 fl (7.4-10.4); Monocytes # 0.4 K/mm3 (0.1-1.0); Monocytes % 4.6 % (1.7-9.3); Neutrophils # 6.4 K/mm3 (1.8-7.8); Neutrophils % 68.3 % (37.0-80.0); Platelet Count 263 K/mm3 (142-424); Red Blood Count 4.75 M/mm3 (4.20-5.40); Red Cell Distribution Width 16.7 % (11.5-17.5); White Blood Count 9.4 K/mm3 (4.8-10.8)
[2023-12-16 17:43] LABS: Anion Gap 10.9 mEq/L (5-15); Blood Urea Nitrogen 11 mg/dl (7-17); Calcium 9.4 mg/dl (8.4-10.2); Carbon Dioxide 24 mmol/L (22.0-30.0); Chloride 108 mmol/L (98-107); Creatinine Clearance Estimated 135 mL/min (50-200); Estimated Glomerular Filt Rate 104 ml/min (>60); GFR (African American) 125 ML/MIN (>60); Glucose 96 mg/dl (74-100); Potassium 3.9 mmoL/L (3.5-5.1); Sodium 139 mmol/L (136-145)
--- NOTE | 2023-12-16 17:46 | CT_ITS ---
PROCEDURE INFORMATION: Exam: CT Cervical Spine With Contrast Exam date and time: 12/16/2023 6:23 PM Age: 23 years old Clinical indication: Other: Mastoiditis; Additional info: Mastoiditis, neck pain with radiculopathy TECHNIQUE: Imaging protocol: Computed tomography of the cervical spine with contrast. Radiation optimization: All CT scans at this facility use at least one of these dose optimization techniques: automated exposure control; mA and/or kV adjustment per patient size (includes targeted exams where dose is matched to clinical indication); or iterative reconstruction. Contrast material: ISOVUE; Contrast volume: 75 ml; Contrast route: IV; COMPARISON: CT SOFT TISSUE NECK W CON 12/16/2023 6:23 PM FINDINGS: Bones: Cervical vertebrae normal in height. No acute fracture. Maintained craniocervical junction. Mild right lateral tilt. Preserved intervertebral disc spaces. No significant neural foraminal narrowing or spinal canal stenosis. Lungs: Lung apices are normal. Soft tissues: Unremarkable. IMPRESSION: No acute osseous findings.
--- NOTE | 2023-12-16 17:46 | CT_ITS ---
PROCEDURE INFORMATION: Exam: CT Temporal Bones Without Contrast. Exam date and time: 12/16/2023 6:35 PM Age: 23 years old Clinical indication: Other: Mastoiditis; Additional info: Mastoiditis, neck pain with radiculopathy TECHNIQUE: Imaging protocol: Computed tomography of the temporal bones without contrast. Radiation optimization: All CT scans at this facility use at least one of these dose optimization techniques: automated exposure control; mA and/or kV adjustment per patient size (includes targeted exams where dose is matched to clinical indication); or iterative reconstruction. COMPARISON: CT TEMPORAL BONE WITH 12/03/2023 10:08 PM FINDINGS: Right inner ear: Normal. Right ossicles and middle ear: Normal. The middle ear ossicles are intact. Right external auditory canal: Normal. Right facial nerve canal: Normal. Right jugular foramen: No jugular dehiscence. Right carotid canal: No aberrant carotid canal. Right mastoid air cells: Normal. No mastoid effusions. Left inner ear: Normal. Left ossicles and middle ear: Resolved bubbly opacities within the dependent cavity. The middle ear ossicles are intact. Left external auditory canal: Resolved wall thickening. Left facial nerve canal: Normal. Left jugular foramen: No jugular dehiscence. Left carotid canal: No aberrant carotid canal. Left mastoid air cells: Moderate effusion. Soft tissues: Unremarkable. Other findings: Left myringotomy tube. IMPRESSION: Persistent although decreased moderate left mastoid effusion. Resolved findings of left otitis media and otitis externa.
--- NOTE | 2023-12-16 17:46 | CT_ITS ---
PROCEDURE INFORMATION: Exam: CT Neck With Contrast Exam date and time: 12/16/2023 6:23 PM Age: 23 years old Clinical indication: Other: Mastoiditis; Additional info: Mastoiditis, neck pain with radiculopathy TECHNIQUE: Imaging protocol: Computed tomography of the neck with contrast. Radiation optimization: All CT scans at this facility use at least one of these dose optimization techniques: automated exposure control; mA and/or kV adjustment per patient size (includes targeted exams where dose is matched to clinical indication); or iterative reconstruction. Contrast material: ISOVUE; Contrast volume: 75 ml; Contrast route: IV; COMPARISON: CT CERVICAL SPINE W CON 12/16/2023 6:23 PM FINDINGS: Salivary glands: Normal. Glands are normal in size. Pharynx: Unremarkable. No significant tonsillar enlargement. Prevertebral and retropharyngeal spaces: Unremarkable. Larynx: Unremarkable. Epiglottis is normal. Thyroid: Normal. No enlarged or calcified nodules. Trachea: Visualized trachea is unremarkable. Lungs: Unremarkable as visualized. Lymph nodes: Unremarkable. No lymphadenopathy. Bones/joints: Unremarkable. No acute fracture. Soft tissues: Unremarkable. IMPRESSION: No acute findings of the neck.
[2023-12-16 18:00] VITALS: BP 140/89; PULSE 95; O2SAT 99
[2023-12-16 18:11] LABS: HCG Qualitative, Serum Negative (Negative)
[2023-12-16 18:14] LABS: Procalcitonin < 0.030 ng/mL (0.0-2.0)
[2023-12-16] MEDS: SODIUM CHLORIDE 0.9% 10ML SYR (RAD ONLY) 10 ML IV (18:34)
[2023-12-16] MEDS: IOPAMIDOL-370 (76%);100ML BOTTLE 75 ML IV (18:34)
[2023-12-16 19:36] VITALS: BP 136/96; PULSE 68; RESP 16; TEMP 36.6; O2SAT 98
== END 2023-12-16 19:38 | disposition home or self-care (01) ==
PROVIDERS: Physician Assistant; Emergency Provider Emergency Medicine; PCP Physician Assistant
DX: M54.2 Cervicalgia (principal)
CPT/HCPCS: 70481; 70491; 72126; 80048; 84145; 84703; 85025; 99284; Q9967

== ENCOUNTER 2024-01-08 07:35 | Outpatient (CLI) | payer BC, SELFPAY ==
[2024-01-08 07:50] LABS: Basophils # 0.1 K/mm3 (0-0.2); Eosinophils # 0.2 K/mm3 (0.0-0.4); Eosinophils % 3.2 % (0.1-12.0); Hematocrit 39.6 % (37.0-47.0); Hemoglobin 12.1 g/dL (12.2-16.2); Lymphocytes # 1.7 K/mm3 (0.7-4.5); Lymphocytes % 25.8 % (10-50); Mean Corpuscular HGB Conc 30.6 g/dL (31.8-35.4); Mean Corpuscular Hemoglobin 23.4 pg (27.0-31.2); Mean Corpuscular Volume 76.3 fl (81-99); Mean Platelet Volume 8.6 fl (7.4-10.4); Monocytes # 0.3 K/mm3 (0.1-1.0); Monocytes % 4.9 % (1.7-9.3); Neutrophils # 4.3 K/mm3 (1.8-7.8); Neutrophils % 65.1 % (37.0-80.0); Platelet Count 301 K/mm3 (142-424); Red Blood Count 5.19 M/mm3 (4.20-5.40); Red Cell Distribution Width 16.5 % (11.5-17.5); White Blood Count 6.7 K/mm3 (4.8-10.8)
[2024-01-08 08:04] LABS: Albumin Level 4.3 g/dl (3.5-5.0); Chloride 108 mmol/L (98-107)
[2024-01-08 08:05] LABS: Potassium 4.4 mmoL/L (3.5-5.1); Sodium 139 mmol/L (136-145)
[2024-01-08 08:07] LABS: Alanine Aminotransferase 26 U/L (12-78); Aspartate Amino Transferase 23 U/L (14-36); Blood Urea Nitrogen 9 mg/dl (7-17); Estimated Glomerular Filt Rate 89 ml/min (>60); GFR (African American) 108 ML/MIN (>60)
[2024-01-08 08:08] LABS: Albumin/Globulin Ratio 1.3 (1.1-1.8); Alkaline Phosphatase 79 U/L (38-126); Anion Gap 9.4 mEq/L (5-15); Bilirubin,Total 0.5 mg/dl (0.2-1.3); Calcium 8.9 mg/dl (8.4-10.2); Carbon Dioxide 26 mmol/L (22.0-30.0); Creatine Kinase 36 U/L (30-135); Globulin 3.4 g/dL (1.3-3.2); Glucose 98 mg/dl (74-100); Total Protein,Serum 7.7 g/dl (6.3-8.2)
[2024-01-08 08:13] LABS: C-Reactive Protein 9.8 mg/L (0-4)
[2024-01-08 09:29] LABS: Erythrocyte Sedimentation Rate 14 mm/hr (0-20)
== END 2024-01-08 23:59 | disposition home or self-care (01) ==
LOC: LAB 07:36
PROVIDERS: PCP Physician Assistant; Visit Provider Internal Medicine Infectious Disease
DX: H70.12 Chronic mastoiditis, left ear (principal)
CPT/HCPCS: 36415; 80053; 82550; 85025; 85651; 86140

== ENCOUNTER 2024-01-26 09:47 | Outpatient (CLI) | payer BC, SELFPAY | END 2024-01-26 23:59 | disposition home or self-care (01) | LOC: LAB.DROPOF 01-27 09:48 | PROVIDERS: PCP Otolaryngology; Visit Provider Otolaryngology | DX: J02.9 Acute pharyngitis, unspecified (principal) | CPT/HCPCS: 87070 ==

== ENCOUNTER 2024-03-10 18:19 | Emergency (ER) | payer BC, SELFPAY ==
[2024-03-10 18:25] VITALS: BP 149/67; PULSE 79; RESP 18; TEMP 36.8; O2SAT 100; BMI 45.1
--- NOTE | 2024-03-10 18:29 | XR_ITS ---
PROCEDURE INFORMATION: Exam: XR Left Elbow Exam date and time: 03/10/2024 6:36 PM Age: 23 years old Clinical indication: Injury or trauma; Fall; Other: Pain TECHNIQUE: Imaging protocol: Radiologic exam of the left elbow. Views: 3 or more views. AP Oblique Lateral COMPARISON: No relevant prior studies available. FINDINGS: Bones/joints: No visualized bony fracture or dislocation. No evidence for a joint effusion. Soft tissues: The soft tissue appear unremarkable. Notes: If there is further concern, recommend follow-up radiographs or MRI for complete assessment. IMPRESSION: No fracture or dislocation.
--- NOTE | 2024-03-10 18:55 | EXP.UTC ---
Discharge Plan Disposition Patient Disposition: Home, Self-Care Condition: Good Prescriptions Prescriptions: No Action desvenlafaxine succinate [Pristiq] 100 mg tablet extended release 24 hr 100 mg PO DAILY Qty: 30 1RF hydrochlorothiazide 12.5 mg capsule 12.5 mg PO DAILY Zepbound 2.5 mg/0.5 mL pen injector 2.5 mg SQ WEEKLY Patient Comments: TAKE 2.5 MG SUBCUTANEOUSLY ONCE WEEKLY Referrals Follow up/Referrals: Nicci Baker PA [Primary Care Provider] - See instructions Activity Restrictions/Add. Instructions Additional Instructions/Restrictions: Weightbearing as tolerated rest Ice with cold pack for 20 minutes remove may repeat for comfort every hour Ibuprofen every 6 hours as needed for pain or inflammation. If needs something more you can take Tylenol every 4 hours as needed as long as her primary care has told he was okayed for you to take both. Follow-up immediately if new or worsening symptoms or no noticeable improvement over the next 3-5 days. Follow-up with primary care call ortho if no improvement Clinical Impressions Clinical Impression: Elbow pain, Contusion, Abrasion Instructions Patient Instructions: Contusion, DI for Abrasion Print Language Print Language: Chinese Discharge ED Provider: Ulises ([facility])Shon [facility] HPI General Stated complaint: AO 03-10 left arm red and swollen Mode of Arrival: Ambulatory Source of Information: Patient Limitations: No Limitations Time Seen by Provider: 03/10/24 18:55 Description of Symptoms (Recalled from Triage Doc. by RN): PATIENT STATES SHE FELL THIS MORNING WHILE CARRYING A CHILD AND INJURED HER LEFT ELBOW THIS MORNING. PATIENT C/O PAIN/TENDERNESS AND SWELLING TO LEFT ELBOW HEENT Symptoms (Recalled from RN notes): No Resp Symptoms (Recalled from RN notes): No Skin Symptoms (Recalled from RN notes): No MS Symptoms (Recalled from RN notes): Yes Functional Status (Recalled from RN notes): WNL History of Present Illness Provider Complaint: 23-year-old female presents for complaints of left elbow pain with tenderness and swelling. Patient states she was carrying her child this morning and tripped and fell and hit her left elbow.. Related Data Home Medications ?Medication ?Instructions ?Recorded ?Confirmed hydrochlorothiazide 12.5 mg capsule 12.5 mg PO DAILY 06/04/23 03/10/24 tirzepatide (weight loss) 2.5 2.5 mg SQ WEEKLY 03/10/24 03/10/24 mg/0.5 mL subcutaneous pen injector (Zepbound) Previous Rx's ?Medication ?Instructions ?Recorded desvenlafaxine succinate 100 mg 100 mg PO DAILY #30 tabs 03/05/24 tablet,extended release 24 hr (Pristiq) Allergies Allergy/AdvReac Type Severity Reaction Status Date / Time No Known Allergies Allergy Verified 02/06/24 12:06 Worker's Comp Is this a Worker's Comp case?: No [facility] Disclaimer: The information contained in this section may have been updated after the patient was seen, as this information can be updated by other users. Medical History , ROBOTICS TECHNOLOGIST) Major depressive disorder Generalized anxiety disorder Sore throat Acute otitis media with effusion of left ear History of recurrent ear infection Hearing loss Fluid level behind tympanic membrane Ear infection Left chronic serous otitis media Conductive hearing loss Otitis externa of left ear Left ear pain Hearing loss, left Candidal intertrigo depression Acute blood loss anemia 37 weeks gestation of Decreased movement affecting management of in third trimester Carpal tunnel syndrome during Screening for genetic disease carrier status Rubella non-immune status, antepartum History of pre-eclampsia in prior , currently Chronic hypertension during , antepartum Maternal obesity affecting , antepartum Iron deficiency Abnormal uterine bleeding Gallbladder disease Depression Anxiety Migraine Other abnormal clinical finding Pre-eclampsia superimposed on chronic hypertension Headache Gastroesophageal reflux disease Daytime somnolence Surgical History , ROBOTICS TECHNOLOGIST) Status post repeat low transverse section History of laparoscopic cholecystectomy History of delivery Family History , ROBOTICS TECHNOLOGIST) Family history of myocardial infarction Cancer Social History , ROBOTICS TECHNOLOGIST) Smoking Status: Never smoker second hand exposure: No alcohol intake: never counseling given: No substance use type: denies use counseling given: No current occupational status: employed Travel in the last 8 weeks: None adopted: No caregiver/support person: Yes (she has 2 kids) foster care: No household members: spouse and children housing: house lives independently: Yes marital status: number of children: 2 number of grandchildren: 0 education level: high school 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 [employer] Recent Travel: No sexually active: Yes caffeine: Yes physical activity: none panchito/samaritan: None working smoke detector in home: Yes fire extinguisher in home: Yes carbon monox detector in home: No firearms in home: No do you feel safe at home: Yes victim of physical abuse: No victim of emotional abuse: No victim of sexual abuse: No would you like helpful sources: No ROS Obtained: Yes Systems reviewed as appropriate & no additional complaints except as documented Physical Exam General General appearance: alert and in no apparent distress Eye Eye exam: Present normal appearance and PERRL ENT ENT exam: Present normal exam Neck Neck exam: Present normal inspection Respiratory Respiratory exam: Present normal lung sounds bilaterally Cardiovascular Cardiovascular exam: Present regular rate and normal rhythm Expanded Upper Extremity Exam Left: Elbow exam: Present full ROM, tenderness, swelling, abrasion and ecchymosis Forearm/Wrist exam: Present normal inspection and full ROM Hand exam: Present normal inspection and full ROM L/R Arms Top View: 1. Abrasion with bruise Neurological Exam Neurological exam: Present alert and oriented X3 Skin Skin exam: Present warm and other Lymphatic Lymphatic Findings: no adenopathy Medical Decision Making Medical Records Medical records reviewed: Yes I reviewed the patient's medical records. Screening: Per USPSTF and CDC recommendations, given the prevalence of disease in our region, it is our hospital?s policy to screen for HIV and viral Hepatitis for all patients aged 18 and over and those with ongoing risk factors. Randolph Inquiry Pt receiving controlled substance: No Randolph was queried for this patient: No Vital Signs: 03/10/24 18:25 Temperature 98.2 F Temperature Source Oral Pulse Rate [Right Brachial] 79 Respiratory Rate 18 Blood Pressure [Right Arm] 149/67 H Blood Pressure Mean [Right Arm] 94 Blood Pressure Source [Right Arm] Automatic Cuff Blood Pressure Position [Right Arm] Sitting 02 Sat by Pulse Oximetry 100 Oxygen Delivery Method Room Air Orders (Tests/Meds): ORDERS Category Date Time Status Elbow XR left mininum 3 views [XR elbow LT min 3V] Stat Exams 03/10/24 18:29 Taken Radiology Data #1: Image(s): Elbow Image Reviewed: Yes I reviewed the patient's radiology results Preliminary Findings: Normal/NAD
[2024-03-10 19:07] VITALS: BP 149/67; PULSE 79; RESP 18; TEMP 36.8; O2SAT 100
== END 2024-03-10 19:09 | disposition home or self-care (01) ==
PROVIDERS: Emergency Provider Nurse Practitioner Family; PCP Physician Assistant
DX: M25.522 Pain in left elbow (principal)
CPT/HCPCS: 73080; 99213; G0381

== ENCOUNTER 2024-05-26 16:15 | Emergency (ER) | payer BC, SELFPAY ==
[2024-05-26 16:17] VITALS: BP 180/84; PULSE 83; RESP 16; TEMP 36.9; O2SAT 100; BMI 46.7
--- NOTE | 2024-05-26 16:38 | HMH.EDGENADL ---
Discharge Plan Disposition Patient Disposition: Home, Self-Care Condition: Good Prescriptions Prescriptions: New amoxicillin-pot clavulanate 875-125 mg tablet 1 tab PO BID 10 Days Qty: 20 0RF No Action desvenlafaxine succinate [Pristiq] 100 mg tablet extended release 24 hr 100 mg PO DAILY Qty: 30 1RF hydrochlorothiazide 12.5 mg capsule 12.5 mg PO DAILY methylprednisolone [Medrol (Jacob)] 4 mg tablets,dose pack See Rx Instructions PO PER PKG DIR Qty: 21 0RF Rx Instructions: PO PER PKG DIR for 6 days Zepbound 2.5 mg/0.5 mL pen injector 2.5 mg SQ WEEKLY Patient Comments: TAKE 2.5 MG SUBCUTANEOUSLY ONCE WEEKLY Referrals Follow up/Referrals: Nicci Baker PA [Primary Care Provider] - See instructions Activity Restrictions/Add. Instructions Additional Instructions/Restrictions: I have written a prescription for Augmentin after discussion with the ENT provider on-call at [facility]. They will also call you to make an appointment. Please return with any new or worsening symptoms. Clinical Impressions Clinical Impression: Acute left otitis media Print Language Print Language: Cypriot Discharge ED Provider: Sandoval Mitchell General Adult HPI General Chief complaint: Ear Stated complaint: sent by Temi pain in jaw/neck loss of hearing Time Seen by Provider: 05/26/24 16:38 History of Present Illness HPI narrative: Patient presents for evaluation of Tese creased hearing in otologists of left ear, gradual in onset, starting several days ago, constant, worsening today. Patient expresses concern for history of mastoiditis which required several weeks of antibiotics. She had tried to arrange for outpatient visit with ENT physician however was unable to get appointment in time. Denies any fevers. Denies any visual symptoms. Denies any shortness of breath or difficulty swallowing. No known sick contacts. No drainage from her ear. Please note that above description of symptoms, in this electronic medical record under categorization of recalled from ER triage doctor by RN are reflective of an initial nursing assessment, however, is not reflective of my full history and physical exam that was personally taken and clarified. Consequentially, this preceding description of symptoms, which may include the patient's categorized chief complaint in the EMR, do not reflect my personal clinical impression, and the ultimate description of history of present illness and patient stated complaints should be deferred to this section of the note. Unless stated otherwise or congruent with this section of the note, additional signs, symptoms, or incongruence should be interpreted as inaccurate with my clinical impression. Related Data Home Medications ?Medication ?Instructions ?Recorded ?Confirmed hydrochlorothiazide 12.5 mg capsule 12.5 mg PO DAILY 06/04/23 03/19/24 tirzepatide (weight loss) 2.5 2.5 mg SQ WEEKLY 03/10/24 03/19/24 mg/0.5 mL subcutaneous pen injector (Zepbound) Previous Rx's ?Medication ?Instructions ?Recorded desvenlafaxine succinate 100 mg 100 mg PO DAILY #30 tabs 03/05/24 tablet,extended release 24 hr (Pristiq) methylprednisolone 4 mg tablets in See Rx Instructions PO PER PKG DIR 05/25/24 a dose pack (Medrol (Jacob)) #21 tabs amoxicillin 875 mg-potassium 1 tab PO BID 10 days #20 tabs 05/26/24 clavulanate 125 mg tablet Allergies Allergy/AdvReac Type Severity Reaction Status Date / Time No Known Allergies Allergy Verified 03/19/24 13:29 [facility] Disclaimer: The information contained in this section may have been updated after the patient was seen, as this information can be updated by other users. Medical History Major depressive disorder Generalized anxiety disorder Sore throat Acute otitis media with effusion of left ear History of recurrent ear infection Hearing loss Fluid level behind tympanic membrane Ear infection Left chronic serous otitis media She has active drainage despite being on antibiotic drops. We have culture this material in order to determine for on the right medication. I am going to add an oral antibiotic to help cover potential for other sites of infection. She has had a history of mastoiditis in the past and this is potential source of her problem. Conductive hearing loss per Audiometric Otitis externa of left ear Left ear pain Hearing loss, left muffled hearing, per patient Candidal intertrigo depression Acute blood loss anemia 37 weeks gestation of Decreased movement affecting management of in third trimester Carpal tunnel syndrome during Screening for genetic disease carrier status 12/10/22 [facility] carrier screen negative for 14 conditions tested including CF, Fragile X Rubella non-immune status, antepartum History of pre-eclampsia in prior , currently Chronic hypertension during , antepartum Maternal obesity affecting , antepartum Iron deficiency Abnormal uterine bleeding Gallbladder disease Depression Anxiety Migraine Other abnormal clinical finding Narrow bony pelvis Pre-eclampsia superimposed on chronic hypertension Headache Gastroesophageal reflux disease Daytime somnolence Surgical History Status post repeat low transverse section History of laparoscopic cholecystectomy History of delivery Family History Other Cancer Family history of myocardial infarction Social History Smoking Status: Never smoker second hand exposure: No alcohol intake: never counseling given: No substance use type: denies use counseling given: No current occupational status: employed Travel in the last 8 weeks: None adopted: No caregiver/support person: Yes (she has 2 kids) foster care: No household members: spouse and children housing: house lives independently: Yes marital status: number of children: 2 number of grandchildren: 0 education level: high school 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 [employer] Hx Recent Travel: No sexually active: Yes caffeine: Yes physical activity: none panchito/presybeterian: None working smoke detector in home: Yes fire extinguisher in home: Yes carbon monox detector in home: No firearms in home: No do you feel safe at home: Yes victim of physical abuse: No victim of emotional abuse: No victim of sexual abuse: No would you like helpful sources: No Other Medical History Have you received the Flu Vaccine for this season: No Have you received the Pneumonia Vaccine: No ROS Obtained: Yes other As per HPI Physical Exam General General appearance: alert and in no apparent distress Head Head exam: atraumatic and normocephalic Eye Eye exam: Present normal appearance Neck Neck exam: Present normal inspection Chest Chest inspection: Present normal inspection and symmetric chest wall rise Respiratory Respiratory exam: Present normal lung sounds bilaterally; Absent respiratory distress Cardiovascular Cardiovascular exam: Present regular rate and normal rhythm Abdominal Exam Abdominal exam: Present soft Neurological Exam Neurological exam: Present alert and oriented X3 Psychiatric Psychiatric exam: Present normal affect and normal mood Skin Skin exam: Present warm and dry Other Other exam information: Left-sided temp and ostomy tube, mild opacity of left tympanic membrane however no active drainage, no overt mastoid tenderness to palpation, no lateral displacement of ear. Medical Decision Making Medical Records Medical records reviewed: Yes I reviewed the patient's medical records. Screening: Per USPSTF and CDC recommendations, given the prevalence of disease in our region, it is our hospital?s policy to screen for HIV and viral Hepatitis for all patients aged 18 and over and those with ongoing risk factors. [place] Inquiry Pt receiving controlled substance: No Vital Signs: 05/26/24 16:17 05/26/24 20:28 Temperature 98.4 F 97.9 F Temperature Source Oral Tympanic Pulse Rate 78 Pulse Rate [Right] 83 Respiratory Rate 16 20 Blood Pressure 170/80 H Blood Pressure [Right Arm] 180/84 H Blood Pressure Mean [Right Arm] 116 Blood Pressure Source [Right Arm] Automatic Cuff 02 Sat by Pulse Oximetry 100 Oxygen Delivery Method Room Air Room Air Lab Data Lab Results 05/26/24 16:53: WBC 8.7, RBC 4.96, Hgb 11.6 L, Hct 37.7, MCV 76.0 L, MCH 23.4 L, MCHC 30.8 L, RDW 16.0, Plt Count 273, MPV 10.8 H, Neut % (Auto) 64.6, Lymph % (Auto) 26.5, Gooding % (Auto) 6.2, Eos % (Auto) 2.0, Baso % (Auto) 0.6, Neut # (Auto) 5.6, Lymph # (Auto) 2.3, Gooding # (Auto) 0.5, Eos # (Auto) 0.2, Baso # (Auto) 0.1, ESR 57 H, Sodium 140, Potassium 4.3, Chloride 104, Carbon Dioxide 26, Anion Gap 14.3, BUN 11, Creatinine 0.80, Estimated Creat Clear 118, Estimated GFR 89, Est GFR ( Amer) 108, Glucose 101 H, Calcium 9.0, Total Bilirubin 0.4, AST 25, ALT 20, Alkaline Phosphatase 68, C-Reactive Protein 9.0 H, Total Protein 7.2, Albumin 4.2, Globulin 3.0, Albumin/Globulin Ratio 1.4, Serum HCG, Qual Negative 05/26/24 16:53 05/26/24 16:53 Orders (Tests/Meds): ED MEDICATIONS Discontinued Medications Generic Name Dose Route Start Last Admin Trade Name Freq PRN Reason Stop Dose Admin Iopamidol 75 ml 05/26/24 17:33 05/26/24 17:36 Iopamidol-370 (76%);100ml Bottle IV 05/26/24 17:34 75 ml ONCE ONE Administration Sodium Chloride 10 ml 05/26/24 17:33 05/26/24 17:36 Sodium Chloride 0.9% 10ml Syr (Rad Only) IV 05/26/24 17:34 10 ml ONCE ONE Administration ORDERS Category Date Time Status CT Temporal bone With Stat Cat Scan 05/26/24 16:47 Completed CBC w/Auto Diff [Complete Blood Count Auto Diff] Stat Lab 05/26/24 16:53 Completed CMP [Comprehensive Metabolic Panel] Stat Lab 05/26/24 16:53 Completed CRP [C-Reactive Protein] Stat Lab 05/26/24 16:53 Completed ESR [Erythrocyte Sedimentation Rate] Stat Lab 05/26/24 16:53 Completed Serum Beta HCG [HCG Qualitative, Serum] Stat Lab 05/26/24 16:53 Completed Medical Decision Narrative: Patient with history and exam per above presenting for evaluation of left earache, decreased hearing Diagnoses considered include mastoiditis, otitis media, among others. Patient overall nontoxic, exam inconsistent with acute mastoiditis although patient reportedly had insidious onset of previous symptoms, after shared decision making we will proceed with laboratory analysis and CT. ED workup and treatment included: ED MEDICATIONS Discontinued Medications Generic Name Dose Route Start Last Admin Trade Name Freq PRN Reason Stop Dose Admin Iopamidol 75 ml 05/26/24 17:33 05/26/24 17:36 Iopamidol-370 (76%);100ml Bottle IV 05/26/24 17:34 75 ml ONCE ONE Administration Sodium Chloride 10 ml 05/26/24 17:33 05/26/24 17:36 Sodium Chloride 0.9% 10ml Syr (Rad Only) IV 05/26/24 17:34 10 ml ONCE ONE Administration ORDERS Category Date Time Status CT Temporal bone With Stat Cat Scan 05/26/24 16:47 Completed CBC w/Auto Diff [Complete Blood Count Auto Diff] Stat Lab 05/26/24 16:53 Completed CMP [Comprehensive Metabolic Panel] Stat Lab 05/26/24 16:53 Completed CRP [C-Reactive Protein] Stat Lab 05/26/24 16:53 Completed ESR [Erythrocyte Sedimentation Rate] Stat Lab 05/26/24 16:53 Completed Serum Beta HCG [HCG Qualitative, Serum] Stat Lab 05/26/24 16:53 Completed Labs were independently interpreted by me, significant for no acute findings Imaging was independently visualized and interpreted by me, significant for no acute surgical pathology. Please refer to radiology report for full details. At the patient's request, I discussed the case with ENT provider on-call. After this discussion, including symptoms, history, and imaging results, patient will be discharged with course of Augmentin and outpatient follow-up. I discussed my clinical impression with patient and answered all questions. At this time, the evidence for any other entities in the differential is insufficient to warrant any further testing or ED observation. This was explained to the patient. The patient was advised that persistent or worsening symptoms require further evaluation. Critical Care Critical Care Time Critical Care Time: No
--- NOTE | 2024-05-26 16:47 | CT_ITS ---
PROCEDURE INFORMATION: Exam: CT Temporal Bones Without Contrast. Exam date and time: 05/26/2024 5:27 PM Age: 23 years old Clinical indication: Hearing loss; Additional info: HX mastoiditis, L hearing loss, pain TECHNIQUE: Imaging protocol: Computed tomography of the temporal bones without contrast. Radiation optimization: All CT scans at this facility use at least one of these dose optimization techniques: automated exposure control; mA and/or kV adjustment per patient size (includes targeted exams where dose is matched to clinical indication); or iterative reconstruction. COMPARISON: CT TEMPORAL BONE WITH 12/16/2023 6:35 PM FINDINGS: Right inner ear: Normal. Right ossicles and middle ear: Normal. Right external auditory canal: Normal. Right facial nerve canal: Normal. Right jugular foramen: No jugular dehiscence. Right carotid canal: No aberrant carotid canal. Right mastoid air cells: Normal. No mastoid effusions. Left inner ear: Normal. Left ossicles and middle ear: A left myringotomy tube is again demonstrated. There is new thickening of the left tympanic membrane which could reflect a component of acute otitis media (versus chronic otitis media/scar tissue or a combination of these processes). A new, small area of opacity along the superior aspect of the tympanic membrane near the scutum, potentially trace fluid or scar tissue. No osseous erosion is identified. Left external auditory canal: Normal. Left facial nerve canal: Normal. Left jugular foramen: No jugular dehiscence. Left carotid canal: No aberrant carotid canal. Left mastoid air cells: Trace left mastoid fluid. No marked mastoid opacification or septal erosion. Nasal cavity: Chronic apex left deviation and spurring of the nasal septum. Pharynx: The nasopharynx demonstrates enlargement of the adenoidal tonsils. Lymph nodes: Mildly enlarged cervical lymph nodes, likely reactive. Soft tissues: Unremarkable. The dural venous sinuses appear grossly patent. No evidence of subdural or epidural abscess. IMPRESSION: Thickening of the left tympanic membrane may be consistent with otitis media.
[2024-05-26 17:02] LABS: Basophils # 0.1 K/mm3 (0-0.2); Basophils % 0.6 % (0.1-2.0); Eosinophils # 0.2 K/mm3 (0.0-0.4); Hematocrit 37.7 % (37.0-47.0); Hemoglobin 11.6 g/dL (12.2-16.2); Lymphocytes # 2.3 K/mm3 (0.7-4.5); Lymphocytes % 26.5 % (10-50); Mean Corpuscular HGB Conc 30.8 g/dL (31.8-35.4); Mean Corpuscular Hemoglobin 23.4 pg (27.0-31.2); Mean Platelet Volume 10.8 fl (7.4-10.4); Monocytes # 0.5 K/mm3 (0.1-1.0); Monocytes % 6.2 % (1.7-9.3); Neutrophils # 5.6 K/mm3 (1.8-7.8); Neutrophils % 64.6 % (37.0-80.0); Platelet Count 273 K/mm3 (142-424); Red Blood Count 4.96 M/mm3 (4.20-5.40); White Blood Count 8.7 K/mm3 (4.8-10.8)
[2024-05-26 17:09] LABS: Chloride 104 mmol/L (98-107)
[2024-05-26 17:10] LABS: Albumin Level 4.2 g/dl (3.5-5.0); Potassium 4.3 mmoL/L (3.5-5.1); Sodium 140 mmol/L (136-145)
[2024-05-26 17:12] LABS: Alanine Aminotransferase 20 U/L (12-78); Albumin/Globulin Ratio 1.4 (1.1-1.8); Alkaline Phosphatase 68 U/L (38-126); Anion Gap 14.3 mEq/L (5-15); Aspartate Amino Transferase 25 U/L (14-36); Bilirubin,Total 0.4 mg/dl (0.2-1.3); Blood Urea Nitrogen 11 mg/dl (7-17); Carbon Dioxide 26 mmol/L (22.0-30.0); Creatinine Clearance Estimated 118 mL/min (50-200); Estimated Glomerular Filt Rate 89 ml/min (>60); GFR (African American) 108 ML/MIN (>60); Total Protein,Serum 7.2 g/dl (6.3-8.2)
[2024-05-26 17:13] LABS: Glucose 101 mg/dl (74-100)
[2024-05-26 17:21] LABS: HCG Qualitative, Serum Negative (Negative)
--- NOTE | 2024-05-26 17:33 | PC.NURSE ---
pt ambulated to ct scan with rt staff.
[2024-05-26] MEDS: SODIUM CHLORIDE 0.9% 10ML SYR (RAD ONLY) 10 ML IV (17:36)
[2024-05-26] MEDS: IOPAMIDOL-370 (76%);100ML BOTTLE 75 ML IV (17:36)
[2024-05-26 18:14] LABS: Erythrocyte Sedimentation Rate 57 mm/hr (0-20)
[2024-05-26 20:28] VITALS: BP 170/80; PULSE 78; RESP 20; TEMP 36.6; O2SAT 100
== END 2024-05-26 20:31 | disposition home or self-care (01) ==
PROVIDERS: Emergency Provider Emergency Medicine; PCP Physician Assistant
DX: H66.92 Otitis media, unspecified, left ear (principal); H91.92 Unspecified hearing loss, left ear
CPT/HCPCS: 70481; 80053; 84703; 85025; 85651; 86140; 99285; Q9967

== ENCOUNTER 2024-05-29 23:43 | Emergency (ER) | payer BC, SELFPAY ==
[2024-05-29 23:49] VITALS: BP 148/91; PULSE 83; PULSE 87; RESP 20; TEMP 36.7; O2SAT 96; BMI 46.7
[2024-05-30 00:01] VITALS: BP 144/98; PULSE 89; O2SAT 100
--- NOTE | 2024-05-30 00:04 | CT_ITS ---
PROCEDURE INFORMATION: Exam: CT Temporal Bones Without Contrast. Exam date and time: 05/30/2024 12:46 AM Age: 23 years old Clinical indication: Jaw pain; Additional info: HX mastoiditis, new/worsening symptoms TECHNIQUE: Imaging protocol: Computed tomography of the temporal bones without contrast. Radiation optimization: All CT scans at this facility use at least one of these dose optimization techniques: automated exposure control; mA and/or kV adjustment per patient size (includes targeted exams where dose is matched to clinical indication); or iterative reconstruction. COMPARISON: CT TEMPORAL BONE WITH 05/26/2024 5:27 PM FINDINGS: Right inner ear: Normal. Right ossicles and middle ear: Ossicles appear intact. Right external auditory canal: Normal. Right facial nerve canal: Normal. Right jugular foramen: No jugular dehiscence. Right carotid canal: No aberrant carotid canal. Right mastoid air cells: Normal. No mastoid effusions. Left inner ear: Normal. Left ossicles and middle ear: Fluid in the left middle ear cavity. Left external auditory canal: Soft tissue fluid/thickening left external auditory canal image . Left facial nerve canal: Normal. Left jugular foramen: No jugular dehiscence. Left carotid canal: No aberrant carotid canal. Left mastoid air cells: Moderate fluid left mastoid air cells and petrous apex air cells; progressive compared with 05/26/2024. No evidence for erosion of the tegmen tympani. Soft tissues: Unremarkable. IMPRESSION: Fluid in the middle ear cavity and mastoid air cells consistent with otomastoiditis. Findings appear progressive compared with 05/26/2024.
--- NOTE | 2024-05-30 00:08 | ED_ITS ---
Discharge Plan Disposition Patient Disposition: Home, Self-Care Prescriptions Prescriptions: New levofloxacin 750 mg tablet 750 mg PO DAILY 7 Days Qty: 7 0RF No Action desvenlafaxine succinate [Pristiq] 100 mg tablet extended release 24 hr 100 mg PO DAILY Qty: 30 1RF hydrochlorothiazide 12.5 mg capsule 12.5 mg PO DAILY methylprednisolone [Medrol (Jacob)] 4 mg tablets,dose pack See Rx Instructions PO PER PKG DIR Qty: 21 0RF Rx Instructions: PO PER PKG DIR for 6 days Zepbound 2.5 mg/0.5 mL pen injector 2.5 mg SQ WEEKLY Patient Comments: TAKE 2.5 MG SUBCUTANEOUSLY ONCE WEEKLY amoxicillin-pot clavulanate 875-125 mg tablet 1 tab PO BID 10 Days Qty: 20 0RF Referrals Follow up/Referrals: Nicci Baker PA [Primary Care Provider] - See instructions Activity Restrictions/Add. Instructions Additional Instructions/Restrictions: Recommend following up with ENT or return to the ER if you change your mind. I sent a prescription for Levaquin, it is a once daily medication, next dose should be around midnight on the . Clinical Impressions Clinical Impression: Mastoiditis of left side Print Language Print Language: [place]an Discharge ED Provider: Fernando Maurer Adult HPI General Chief complaint: Ear Stated complaint: ear pain Time Seen by Provider: 05/29/24 23:45 Mode of Arrival: Ambulatory Source of Information: Patient Limitations: No Limitations Description of Symptoms (Recalled from ER Triage Doc. by RN): Pt has hx of mastoiditis Pain unbearable today History of Present Illness HPI narrative: 23-year-old female with history of multidrug-resistant mastoiditis presents for worsening ear pain. She had mastoiditis earlier this year and was on 7 weeks Zosyn through PICC line. Last week she started having recurrent pain in the left ear. She was seen here and had a CT scan which showed otitis and was started on Augmentin and Ciprodex. She has been taking it as prescribed but her pain is worsening and the drainage is worsening. She denies fever at home. Reports that her hearing is getting worse.. Related Data Home Medications ?Medication ?Instructions ?Recorded ?Confirmed hydrochlorothiazide 12.5 mg capsule 12.5 mg PO DAILY 06/04/23 03/19/24 tirzepatide (weight loss) 2.5 2.5 mg SQ WEEKLY 03/10/24 03/19/24 mg/0.5 mL subcutaneous pen injector (Zepbound) Previous Rx's ?Medication ?Instructions ?Recorded desvenlafaxine succinate 100 mg 100 mg PO DAILY #30 tabs 03/05/24 tablet,extended release 24 hr (Pristiq) methylprednisolone 4 mg tablets in See Rx Instructions PO PER PKG DIR 05/25/24 a dose pack (Medrol (Jacob)) #21 tabs amoxicillin 875 mg-potassium 1 tab PO BID 10 days #20 tabs 05/26/24 clavulanate 125 mg tablet levofloxacin 750 mg tablet 750 mg PO DAILY 7 days #7 tabs 05/30/24 Allergies Allergy/AdvReac Type Severity Reaction Status Date / Time No Known Allergies Allergy Verified 03/19/24 13:29 [facility] Disclaimer: The information contained in this section may have been updated after the patient was seen, as this information can be updated by other users. Medical History Major depressive disorder Generalized anxiety disorder Sore throat Acute otitis media with effusion of left ear History of recurrent ear infection Hearing loss Fluid level behind tympanic membrane Ear infection Left chronic serous otitis media She has active drainage despite being on antibiotic drops. We have culture this material in order to determine for on the right medication. I am going to add an oral antibiotic to help cover potential for other sites of infection. She has had a history of mastoiditis in the past and this is potential source of her problem. Conductive hearing loss per Audiometric Otitis externa of left ear Left ear pain Hearing loss, left muffled hearing, per patient Candidal intertrigo depression Acute blood loss anemia 37 weeks gestation of Decreased movement affecting management of in third trimester Carpal tunnel syndrome during Screening for genetic disease carrier status 12/10/22 [facility] carrier screen negative for 14 conditions tested including CF, Fragile X Rubella non-immune status, antepartum History of pre-eclampsia in prior , currently Chronic hypertension during , antepartum Maternal obesity affecting , antepartum Iron deficiency Abnormal uterine bleeding Gallbladder disease Depression Anxiety Migraine Other abnormal clinical finding Narrow bony pelvis Pre-eclampsia superimposed on chronic hypertension Headache Gastroesophageal reflux disease Daytime somnolence Surgical History Status post repeat low transverse section History of laparoscopic cholecystectomy History of delivery Family History Other Cancer Family history of myocardial infarction Social History Smoking Status: Never smoker second hand exposure: No alcohol intake: never counseling given: No substance use type: denies use counseling given: No current occupational status: employed Travel in the last 8 weeks: None adopted: No caregiver/support person: Yes (she has 2 kids) foster care: No household members: spouse and children housing: house lives independently: Yes marital status: number of children: 2 number of grandchildren: 0 education level: high school 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 [employer] Recent Travel: No sexually active: Yes caffeine: Yes physical activity: none panchito/presybeterian: None working smoke detector in home: Yes fire extinguisher in home: Yes carbon monox detector in home: No firearms in home: No do you feel safe at home: Yes victim of physical abuse: No victim of emotional abuse: No victim of sexual abuse: No would you like helpful sources: No Have you lived/traveled outside [place] in past 30 days?: No Contact w/someone who lives/traveled outside US past 30 days?: No Exposure to someone with infectious disease in past 14 days?: No Do you have a fever (greater than 100.4 F or 38 C)?: No Have you tested positive for COVID-19: No Exposed to someone with COVID-19 in past 14 days?: No Do you have a sore throat?: No Do you have a cough?: No Do you have any weakness?: No Do you have any diarrhea?: No Are you experiencing any unusual bleeding?: No Do you have any muscle aches/pain?: No Do you have any abdominal pain?: No Are you experiencing loss of taste or smell?: No Other Medical History Have you received the Flu Vaccine for this season: No Have you received the Pneumonia Vaccine: No ROS Obtained: Yes All systems reviewed & no additional complaints except as documented Physical Exam General General appearance: alert and in no apparent distress Head Head exam: atraumatic and normocephalic Eye Eye exam: Present normal appearance, PERRL and EOMI ENT ENT exam: Present normal oropharynx and other (No mastoid erythema or swelling, but tenderness present on the left. Left TM shows tympanostomy tube in place with active drainage and surrounding erythema) Neck Neck exam: Present normal inspection and full ROM Chest Chest inspection: Present normal inspection and symmetric chest wall rise; Absent tenderness Respiratory Respiratory exam: Present normal lung sounds bilaterally; Absent respiratory distress Cardiovascular Cardiovascular exam: Present regular rate and normal rhythm Abdominal Exam Abdominal exam: Present soft; Absent distention, tenderness or guarding Extremities Exam Extremities exam: Present normal inspection; Absent edema or joint swelling Back Exam Back exam: Present normal inspection; Absent tenderness Neurological Exam Neurological exam: Present alert and oriented X3; Absent motor sensory deficit Psychiatric Psychiatric exam: Present normal affect and normal mood Skin Skin exam: Present warm, dry and normal color Lymphatic Lymphatic Findings: no adenopathy Medical Decision Making Medical Records Medical records reviewed: Yes I reviewed the patient's medical records. Screening: Per USPSTF and CDC recommendations, given the prevalence of disease in our region, it is our hospital?s policy to screen for HIV and viral Hepatitis for all patients aged 18 and over and those with ongoing risk factors. Randolph Inquiry Pt receiving controlled substance: No Randolph was queried for this patient: No Vital Signs: 05/29/24 23:49 05/29/24 23:49 05/30/24 00:01 Temperature 98.1 F Temperature Source Oral Pulse Rate 83 89 Pulse Rate [Right Brachial] 87 Respiratory Rate 20 Blood Pressure 148/91 H 144/98 H Blood Pressure [Right Arm] 148/91 H Blood Pressure Mean Blood Pressure Mean [Right Arm] 110 Blood Pressure Source [Right Arm] Automatic Cuff Blood Pressure Position [Right Arm] Sitting 02 Sat by Pulse Oximetry 96 96 100 Oxygen Delivery Method Room Air 05/30/24 01:01 05/30/24 02:39 Temperature 98 F Temperature Source Pulse Rate 81 90 Pulse Rate [Right Brachial] Respiratory Rate 16 Blood Pressure 158/79 H 160/78 H Blood Pressure [Right Arm] Blood Pressure Mean 105 Blood Pressure Mean [Right Arm] Blood Pressure Source [Right Arm] Blood Pressure Position [Right Arm] 02 Sat by Pulse Oximetry Oxygen Delivery Method Room Air Lab Data Lab results reviewed: Yes I reviewed the patient's lab results. Lab Results 05/30/24 00:25: WBC 8.5, RBC 4.99, Hgb 11.7 L, Hct 37.5, MCV 75.2 L, MCH 23.4 L, MCHC 31.2 L, RDW 16.0, Plt Count 280, MPV 10.8 H, Neut % (Auto) 61.9, Lymph % (Auto) 29.6, Ventura % (Auto) 5.7, Eos % (Auto) 2.0, Baso % (Auto) 0.6, Neut # (Auto) 5.3, Lymph # (Auto) 2.5, Ventura # (Auto) 0.5, Eos # (Auto) 0.2, Baso # (Auto) 0.1, Sodium 138, Potassium 3.9, Chloride 104, Carbon Dioxide 27, Anion Gap 10.9, BUN 13, Creatinine 0.80, Estimated Creat Clear 118, Estimated GFR 89, Est GFR ( Amer) 108, Glucose 111 H, Calcium 9.3, Total Bilirubin 0.4, AST 30, ALT 20, Alkaline Phosphatase 77, Total Protein 7.6, Albumin 4.5, Globulin 3.1, Albumin/Globulin Ratio 1.5, Serum HCG, Qual Negative, HCV Ab GALEN w/Rflx PCR Qn Negative, HIV Ag/Ab Combo Qual Negative 05/30/24 00:25 05/30/24 00:25 Orders (Tests/Meds): ED MEDICATIONS Discontinued Medications Generic Name Dose Route Start Last Admin Trade Name Freq PRN Reason Stop Dose Admin Ceftriaxone Sodium 1 gm/ 50 mls @ 100 mls/hr 05/30/24 01:57 05/30/24 02:16 Sodium Chloride IV 05/30/24 02:26 100 mls/hr ONCE ONE Administration Iopamidol 75 ml 05/30/24 01:19 05/30/24 01:21 Iopamidol-370 (76%);100ml Bottle IV 05/30/24 01:20 75 ml ONCE ONE Administration Levofloxacin 750 mg 05/30/24 01:57 05/30/24 02:17 Levofloxacin 750 Mg Tablet PO 05/30/24 01:58 750 mg ONCE ONE Administration Sodium Chloride 10 ml 05/30/24 01:19 05/30/24 01:21 Sodium Chloride 0.9% 10ml Syr (Rad Only) IV 06/29/24 01:18 10 ml NEEDED PRN Administration Maintain IV Site ORDERS Category Date Time Status CT Temporal bone With Stat Cat Scan 05/30/24 00:04 Completed CBC w/Auto Diff [Complete Blood Count Auto Diff] Stat Lab 05/30/24 00:25 Completed CMP [Comprehensive Metabolic Panel] Stat Lab 05/30/24 00:25 Completed HIV Combo Routine Lab 05/29/24 23:52 Completed Hepatitis C Ab Qual. W/ RFX Routine Lab 05/29/24 23:52 Completed Serum [HCG Qualitative, Serum] Stat Lab 05/30/24 00:25 Completed Blood Culture Stat Micro 05/30/24 00:41 Ordered Body Fluid Cult & Gram Stain Stat Micro 05/30/24 00:15 Results Medical Decision Narrative: 23-year-old female with history of multidrug-resistant mastoiditis earlier this year, presents with recurrent symptoms x 1 week that are progressive despite Augmentin and Ciprodex.. History was obtained via interactive discussion with patient. On arrival, patient is [afebrile, hemodynamically stable, satting appropriately, alert, oriented x4, GCS 15], moving all extremities spontaneously. Full physical exam performed and significant for mastoid tenderness and erythematous TM with drainage from the tympanostomy tube, no mastoid swelling or erythema. Differential includes but is not limited to recurrent mastoiditis, meningitis, otitis. Workup initiated including CBC CMP blood cultures, fluid culture from the draining fluid of the left ear, CT temporal bone with contrast. On re-evaluation, patient [remains afebrile, HD stable.] Laboratory workup independently interpreted by me and significant for no significant leukocytosis, normal renal function, no significant electrolyte derangement.. Imaging independently interpreted by me and significant for worsening of the fluid in the mastoid air cells on the left consistent with otitis and mastoiditis. See radiology read for full review of final results. Given patient history, exam and workup, patient's presentation most likely represents recurrent mastoiditis. I had extensive discussion with patient regarding her presentation and results. She has recurrent mastoiditis at this time. Given her multidrug-resistant bacteria that were grown during her last episode of mastoiditis and the fact that she is worsening despite oral antibiotics, I recommended her that she be transferred for ENT/ID evaluation, initiation of IV antibiotic therapy and consideration of mastoid surgery with ENT. This is serious and could result in meningitis or . Patient reports that she has an ENT appointment scheduled for approximately 36 hours from now. She has multiple children at home and does not have the ability to get childcare at this time. She reports that she would prefer to get antibiotics here and be discharged to follow-up with the ENT appointment that is already scheduled. I had multiple discussions with patient regarding this and encouraged her to allow us to transfer her, but social factors prevented this. She reports understanding of the situation and reports she will return if her symptoms continue to worsen. after review of her cultures, there are no good options for outpatient antibiotic therapy. Will treat with IV ceftriaxone 1 g and Levaquin and discharge with prescription for Levaquin. She was given return precautions. Procedures Risk/Benefits of Procedure(s) Were Explained: Yes Critical Care Critical Care Time Critical Care Time: No
[2024-05-30 00:33] LABS: Basophils # 0.1 K/mm3 (0-0.2); Basophils % 0.6 % (0.1-2.0); Eosinophils # 0.2 K/mm3 (0.0-0.4); Hematocrit 37.5 % (37.0-47.0); Hemoglobin 11.7 g/dL (12.2-16.2); Lymphocytes # 2.5 K/mm3 (0.7-4.5); Lymphocytes % 29.6 % (10-50); Mean Corpuscular HGB Conc 31.2 g/dL (31.8-35.4); Mean Corpuscular Hemoglobin 23.4 pg (27.0-31.2); Mean Corpuscular Volume 75.2 fl (81-99); Mean Platelet Volume 10.8 fl (7.4-10.4); Monocytes # 0.5 K/mm3 (0.1-1.0); Monocytes % 5.7 % (1.7-9.3); Neutrophils # 5.3 K/mm3 (1.8-7.8); Neutrophils % 61.9 % (37.0-80.0); Platelet Count 280 K/mm3 (142-424); Red Blood Count 4.99 M/mm3 (4.20-5.40); White Blood Count 8.5 K/mm3 (4.8-10.8)
[2024-05-30 00:36] LABS: Albumin Level 4.5 g/dl (3.5-5.0); Chloride 104 mmol/L (98-107); Sodium 138 mmol/L (136-145)
[2024-05-30 00:38] LABS: Blood Urea Nitrogen 13 mg/dl (7-17); Creatinine Clearance Estimated 118 mL/min (50-200); Estimated Glomerular Filt Rate 89 ml/min (>60); GFR (African American) 108 ML/MIN (>60)
[2024-05-30 00:39] LABS: Alanine Aminotransferase 20 U/L (12-78); Albumin/Globulin Ratio 1.5 (1.1-1.8); Alkaline Phosphatase 77 U/L (38-126); Aspartate Amino Transferase 30 U/L (14-36); Bilirubin,Total 0.4 mg/dl (0.2-1.3); Calcium 9.3 mg/dl (8.4-10.2); Carbon Dioxide 27 mmol/L (22.0-30.0); Globulin 3.1 g/dL (1.3-3.2); Glucose 111 mg/dl (74-100); Total Protein,Serum 7.6 g/dl (6.3-8.2)
[2024-05-30 00:43] LABS: HCG Qualitative, Serum Negative (Negative)
[2024-05-30 00:44] LABS: Anion Gap 10.9 mEq/L (5-15); Potassium 3.9 mmoL/L (3.5-5.1)
[2024-05-30 01:01] VITALS: BP 158/79; PULSE 81
--- NOTE | 2024-05-30 01:07 | PC.NURSE ---
Pt ambulatory to CT scan
[2024-05-30] MEDS: IOPAMIDOL-370 (76%);100ML BOTTLE 75 ML IV (01:21)
[2024-05-30] MEDS: SODIUM CHLORIDE 0.9% 10ML SYR (RAD ONLY) 10 ML IV (01:21)
[2024-05-30 01:25] LABS: HIV Combo NEGATIVE (Negative)
[2024-05-30] MEDS: CEFTRIAXONE 1 GM 1 GM in 0.9 % SODIUM CHLORIDE 50 ML IV (02:16)
[2024-05-30] MEDS: levoFLOXacin 750 MG TABLET PO (02:17)
[2024-05-30 02:39] VITALS: BP 160/78; PULSE 90; RESP 16; TEMP 36.6; O2SAT 99
[2024-05-30 03:48] LABS: Hepatitis C Ab Qual. W/ RFX NEGATIVE (Negative)
--- NOTE | 2024-06-06 08:44 | PC.NURSE ---
spoke with pt, who reports that she is following with infection disease concerning her culture
== END 2024-05-30 02:44 | disposition home or self-care (01) ==
PROVIDERS: Emergency Provider Emergency Medicine; PCP Physician Assistant
DX: H70.92 Unspecified mastoiditis, left ear (principal); H92.02 Otalgia, left ear
CPT/HCPCS: 70481; 80053; 84703; 85025; 86803; 87040; 87070; 87077; 87186; 87205; 87389; 96365; 99285; J0696; Q9967

== ENCOUNTER 2024-06-08 07:32 | Outpatient (CLI) | payer BC, SELFPAY ==
[2024-06-08 07:46] LABS: Basophils % 0.6 % (0.1-2.0); Eosinophils # 0.2 K/mm3 (0.0-0.4); Eosinophils % 3.2 % (0.1-12.0); Hematocrit 35.8 % (37.0-47.0); Hemoglobin 11.1 g/dL (12.2-16.2); Lymphocytes # 1.5 K/mm3 (0.7-4.5); Lymphocytes % 24.2 % (10-50); Mean Corpuscular Hemoglobin 23.4 pg (27.0-31.2); Mean Corpuscular Volume 75.4 fl (81-99); Mean Platelet Volume 10.7 fl (7.4-10.4); Monocytes # 0.4 K/mm3 (0.1-1.0); Monocytes % 6.8 % (1.7-9.3); Neutrophils # 4.1 K/mm3 (1.8-7.8); Neutrophils % 64.9 % (37.0-80.0); Platelet Count 256 K/mm3 (142-424); Red Blood Count 4.75 M/mm3 (4.20-5.40); Red Cell Distribution Width 16.1 % (11.5-17.5); White Blood Count 6.3 K/mm3 (4.8-10.8)
[2024-06-08 08:19] LABS: Alanine Aminotransferase 18 U/L (12-78); Albumin/Globulin Ratio 1.4 (1.1-1.8); Alkaline Phosphatase 66 U/L (38-126); Anion Gap 10.4 mEq/L (5-15); Aspartate Amino Transferase 22 U/L (14-36); Bilirubin,Total 0.2 mg/dl (0.2-1.3); Blood Urea Nitrogen 11 mg/dl (7-17); Carbon Dioxide 28 mmol/L (22.0-30.0); Chloride 106 mmol/L (98-107); Estimated Glomerular Filt Rate 89 ml/min (>60); GFR (African American) 108 ML/MIN (>60); Globulin 2.9 g/dL (1.3-3.2); Glucose 98 mg/dl (74-100); Potassium 4.4 mmoL/L (3.5-5.1); Sodium 140 mmol/L (136-145); Total Protein,Serum 6.9 g/dl (6.3-8.2)
[2024-06-08 08:24] LABS: C-Reactive Protein 8.4 mg/L (0-4)
[2024-06-08 08:36] LABS: Erythrocyte Sedimentation Rate 18 mm/hr (0-20)
== END 2024-06-08 23:59 | disposition home or self-care (01) ==
LOC: LAB 07:33
PROVIDERS: PCP Physician Assistant; Visit Provider Internal Medicine Infectious Disease
DX: H92.02 Otalgia, left ear (principal); H70.12 Chronic mastoiditis, left ear; H66.005 Acute suppurative otitis media without spontaneous rupture of ear drum, recurrent, left ear
CPT/HCPCS: 36415; 80053; 85025; 85651; 86140

== ENCOUNTER 2024-06-15 07:34 | Outpatient (CLI) | payer BC, SELFPAY ==
[2024-06-15 08:03] LABS: Basophils # 0.1 K/mm3 (0-0.2); Basophils % 0.8 % (0.1-2.0); Eosinophils # 0.2 K/mm3 (0.0-0.4); Eosinophils % 2.7 % (0.1-12.0); Hematocrit 35.5 % (37.0-47.0); Lymphocytes # 1.8 K/mm3 (0.7-4.5); Mean Corpuscular Volume 74.3 fl (81-99); Mean Platelet Volume 10.5 fl (7.4-10.4); Monocytes # 0.4 K/mm3 (0.1-1.0); Neutrophils # 3.9 K/mm3 (1.8-7.8); Neutrophils % 61.2 % (37.0-80.0); Platelet Count 268 K/mm3 (142-424); Red Blood Count 4.78 M/mm3 (4.20-5.40); Red Cell Distribution Width 15.8 % (11.5-17.5); White Blood Count 6.3 K/mm3 (4.8-10.8)
[2024-06-15 08:16] LABS: C-Reactive Protein 10.1 mg/L (0-4)
[2024-06-15 08:50] LABS: Erythrocyte Sedimentation Rate 18 mm/hr (0-20)
[2024-06-15 08:51] LABS: Alanine Aminotransferase 20 U/L (12-78); Albumin/Globulin Ratio 1.5 (1.1-1.8); Alkaline Phosphatase 67 U/L (38-126); Anion Gap 14.4 mEq/L (5-15); Aspartate Amino Transferase 20 U/L (14-36); Bilirubin,Total 0.4 mg/dl (0.2-1.3); Blood Urea Nitrogen 11 mg/dl (7-17); Calcium 9.2 mg/dl (8.4-10.2); Carbon Dioxide 24 mmol/L (22.0-30.0); Chloride 107 mmol/L (98-107); Chol/HDL Ratio 3.5 (1-3.5); Cholesterol 163 mg/dl (140-200); Estimated Glomerular Filt Rate 104 ml/min (>60); GFR (African American) 125 ML/MIN (>60); Globulin 2.6 g/dL (1.3-3.2); Glucose 95 mg/dl (74-100); HDL Cholesterol 47 mg/dl (40-60); Potassium 4.4 mmoL/L (3.5-5.1); Sodium 141 mmol/L (136-145); Total Protein,Serum 6.6 g/dl (6.3-8.2); Triglycerides 45 mg/dl (30-150); VLDL Cholesterol 9 mg/dL (0-40)
[2024-06-15 09:02] LABS: Direct LDL Cholesterol 98.11 mg/dL (100-129)
[2024-06-15 09:09] LABS: 25-OH Vitamin D, Total 16.4 ng/mL (30-100)
[2024-06-15 09:15] LABS: Hemoglobin A1C 4.9 % (4.0-6.0)
[2024-06-15 09:21] LABS: Thyroid Stimulating Hormone 1.95 uIU/mL (0.465-4.68)
[2024-06-15 09:40] LABS: Vitamin B12 287 pg/mL (239-931)
[2024-06-15 09:42] LABS: Iron 44 ug/dL (37-170)
[2024-06-15 10:18] LABS: Ferritin 9.63 ng/ml (6.24-137)
== END 2024-06-15 23:59 | disposition home or self-care (01) ==
LOC: LAB 07:35
PROVIDERS: PCP Physician Assistant; Visit Provider Internal Medicine Infectious Disease
DX: I10 Essential (primary) hypertension (principal); E61.1 Iron deficiency; D64.9 Anemia, unspecified; E53.8 Deficiency of other specified B group vitamins; E78.5 Hyperlipidemia, unspecified; E55.9 Vitamin D deficiency, unspecified; Z13.1 Encounter for screening for diabetes mellitus; Z13.29 Encounter for screening for other suspected endocrine disorder
CPT/HCPCS: 36415; 80053; 80061; 82306; 82607; 82728; 83036; 83540; 84443; 85025; 85651; 86140

== ENCOUNTER 2024-08-26 12:22 | Emergency (ER) | payer BC, SELFPAY ==
--- NOTE | 2024-08-26 12:32 | CT_ITS ---
FINAL REPORT CLINICAL HISTORY: hx mastoiditis L, otorrhea IV extravasation after 60 ml of contrast injected, best images possible COMPARISON: None FINDINGS: HEAD CT WITH CONTRAST: CT examination of the head was performed after the administration of intravenous contrast using axial images through the head. Multiplanar reconstructions were performed. This study was performed with techniques to keep radiation doses as low as reasonably achievable (ALARA). Individualized dose reduction techniques using automated exposure control or adjustment of mA and/or kV according to the patient's size were employed. The ventricles are normal in size and configuration. No extra axial fluid collections are identified. Specifically, there is no calvarial bone destruction or epidural empyema noted. No mass or enhancement is identified. There is mild sclerosis and minimal partial opacification of the left mastoid air cells, which may be seen with mild chronic mastoiditis. This was also seen on a CT of the temporal bones dated 05/30/2024. There is minimal partial opacification of the left middle ear space. The right mastoid air cells are clear. There is no evidence of epidural empyema. IMPRESSION: Intracranially unremarkable CT of the head. Changes of chronic mastoiditis in the left mastoid air cells, stable when compared with the prior CT of the temporal bones dated 05/30/2024. There is minimal partial opacification of the left middle ear cavity, which is new since the prior exam. Reviewed, Interpreted and Dictated by Esmer Kay MD Transcribed by Sheila Stover Authenticated and [facility]
[2024-08-26 12:36] VITALS: BP 123/59; PULSE 88; RESP 18; TEMP 36.6; O2SAT 99; BMI 47.3
--- NOTE | 2024-08-26 12:49 | HMH.EDGENADL ---
Discharge Plan Disposition Patient Disposition: Home, Self-Care Prescriptions Prescriptions: New ciprofloxacin-dexamethasone 0.3-0.1 % drops,suspension 4 drp otic (ear) BID 7 Days Qty: 7.5 0RF No Action desvenlafaxine succinate [Pristiq] 100 mg tablet extended release 24 hr 100 mg PO DAILY Qty: [address] 0.3-0.05 % drops,suspension 4 drp Eye-Left BID 7 Days Qty: 10 0RF Rx Instructions: This Drop is to be used for the EARS not the eye- this is to be used on the the LEFT EAR levofloxacin 750 mg tablet 750 mg PO DAILY 7 Days Qty: 7 0RF Referrals Follow up/Referrals: Nicci Baker PA [Primary Care Provider] - See instructions Activity Restrictions/Add. Instructions Additional Instructions/Restrictions: At this time it was felt you are safe to be discharged home. If new or worsening symptoms please do not hesitate to return the emergency department. Please continue to take your Ciprodex drops as directed and follow-up with ENT next week. Clinical Impressions Clinical Impression: Chronic mastoiditis Print Language Print Language: German Discharge ED Provider: David Castillo General Adult HPI General Chief complaint: Ear Stated complaint: yellow/orange drainage from left ear w/pain Time Seen by Provider: 08/26/24 12:26 Mode of Arrival: Ambulatory Source of Information: Patient Description of Symptoms (Recalled from ER Triage Doc. by RN): patient states she has had left ear ache since friday with yellow orange drainage. has been using ear drops but they dont seem to be helping. has history of mastoditis History of Present Illness HPI narrative: Patient is a 23-year-old female with past medical history of recurrent ear infections recurrent mastoiditis requiring prolonged course of antibiotics no surgical intervention today who presents emergency department for evaluation of ear drainage. Onset was acute, over the last 72 to 96 hours, green otorrhea sometimes with blood. She has been using her Ciprodex drops at home and has follow-up next week with ENT. No headache reported no other acute complaints at this time. Please note that above description of symptoms, in this electronic medical record under categorization of recalled from ER triage doctor by RN are reflective of an initial nursing assessment, however, is not reflective of my full history and physical exam that was personally taken and clarified. Consequentially, this preceding description of symptoms, which may include the patient's categorized chief complaint in the EMR, do not reflect my personal clinical impression, and the ultimate description of history of present illness and patient stated complaints should be deferred to this section of the note. Unless stated otherwise or congruent with this section of the note, additional signs, symptoms, or incongruence should be interpreted as inaccurate with my clinical impression. Related Data Previous Rx's ?Medication ?Instructions ?Recorded desvenlafaxine succinate 100 mg 100 mg PO DAILY #30 tabs 03/05/24 tablet,extended release 24 hr (Pristiq) levofloxacin 750 mg tablet 750 mg PO DAILY 7 days #7 tabs 05/30/24 tobramycin 0.3 %-dexamethasone 4 drp Eye-Left BID 7 days #10 mL 05/31/24 0.05 % eye drops,suspension (Tobradex ST) ciprofloxacin 0.3 %-dexamethasone 4 drp otic (ear) BID otorrhea 7 08/26/24 0.1 % ear drops,suspension days #7.5 mL Allergies Allergy/AdvReac Type Severity Reaction Status Date / Time No Known Allergies Allergy Verified 05/31/24 16:18 [facility] Disclaimer: The information contained in this section may have been updated after the patient was seen, as this information can be updated by other users. Medical History (Updated 08/26/24 @ 14:54 by David Castillo MD) Chronic mastoiditis of left side Major depressive disorder Generalized anxiety disorder Sore throat Acute otitis media with effusion of left ear History of recurrent ear infection Hearing loss Fluid level behind tympanic membrane Ear infection Left chronic serous otitis media Conductive hearing loss Otitis externa of left ear Left ear pain Hearing loss, left Candidal intertrigo depression Acute blood loss anemia 37 weeks gestation of Decreased movement affecting management of in third trimester Carpal tunnel syndrome during Screening for genetic disease carrier status Rubella non-immune status, antepartum History of pre-eclampsia in prior , currently Chronic hypertension during , antepartum Maternal obesity affecting , antepartum Iron deficiency Abnormal uterine bleeding Gallbladder disease Depression Anxiety Migraine Other abnormal clinical finding Pre-eclampsia superimposed on chronic hypertension Headache Gastroesophageal reflux disease Daytime somnolence Surgical History Status post repeat low transverse section History of laparoscopic cholecystectomy History of delivery Family History Other Cancer Family history of myocardial infarction Social History Smoking Status: Never smoker second hand exposure: No alcohol intake: never counseling given: No substance use type: denies use counseling given: No current occupational status: employed Travel in the last 8 weeks: None adopted: No caregiver/support person: Yes (she has 2 kids) foster care: No household members: spouse and children housing: house lives independently: Yes marital status: number of children: 2 number of grandchildren: 0 education level: high school 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 [employer] Hx Recent Travel: No sexually active: Yes caffeine: Yes physical activity: none panchito/mandaeism: None working smoke detector in home: Yes fire extinguisher in home: Yes carbon monox detector in home: No firearms in home: No do you feel safe at home: Yes victim of physical abuse: No victim of emotional abuse: No victim of sexual abuse: No would you like helpful sources: No Have you lived/traveled outside [place] in past 30 days?: No Contact w/someone who lives/traveled outside [place] past 30 days?: No Exposure to someone with infectious disease in past 14 days?: No Do you have a fever (greater than 100.4 F or 38 C)?: No Have you tested positive for COVID-19: No Exposed to someone with COVID-19 in past 14 days?: No Do you have a sore throat?: No Do you have a cough?: No Do you have any weakness?: No Do you have any diarrhea?: No Are you experiencing any unusual bleeding?: No Do you have any muscle aches/pain?: No Do you have any abdominal pain?: No Are you experiencing loss of taste or smell?: No Other Medical History Have you received the Flu Vaccine for this season: No Have you received the Pneumonia Vaccine: No ROS Obtained: Yes Systems reviewed as appropriate & no additional complaints except as documented Physical Exam General General appearance: alert and in no apparent distress Head Head exam: atraumatic and normocephalic Eye Eye exam: Present PERRL and EOMI ENT ENT exam: Present mucous membranes moist; Absent TM's normal bilaterally (Otorrhea with tympanostomy tube in place on the left, no mastoid erythema no retroauricular swelling or anterior effacement of the pinna.) Neck Neck exam: Present normal inspection Chest Chest inspection: Present normal inspection and symmetric chest wall rise Respiratory Respiratory exam: Present normal lung sounds bilaterally; Absent respiratory distress Cardiovascular Cardiovascular exam: Present regular rate and normal rhythm Abdominal Exam Abdominal exam: Present soft Extremities Exam Extremities exam: Present normal inspection Neurological Exam Neurological exam: Present alert Psychiatric Psychiatric exam: Present normal affect Skin Skin exam: Present warm and dry Medical Decision Making Medical Records Screening: Per USPSTF and CDC recommendations, given the prevalence of disease in our region, it is our hospital?s policy to screen for HIV and viral Hepatitis for all patients aged 18 and over and those with ongoing risk factors. [place] Inquiry Pt receiving controlled substance: No Vital Signs: 08/26/24 12:36 08/26/24 14:47 Temperature 97.9 F 98 F Temperature Source Oral Oral Pulse Rate 91 H Pulse Rate [Right] 88 Respiratory Rate 18 16 Blood Pressure 117/69 Blood Pressure [Right Arm] 123/59 L Blood Pressure Mean [Right Arm] 80 Blood Pressure Source Automatic Cuff Blood Pressure Source [Right Arm] Automatic Cuff Blood Pressure Position Sitting Blood Pressure Position [Right Arm] Sitting 02 Sat by Pulse Oximetry 99 100 Oxygen Delivery Method Room Air Room Air Lab Data Lab Results 08/26/24 12:51: WBC 8.3, RBC 4.69, Hgb 11.2 L, Hct 35.1 L, MCV 74.8 L, MCH 23.9 L, MCHC 31.9, RDW 15.7, Plt Count 286, MPV 10.6 H, Neut % (Auto) 69.8, Lymph % (Auto) 21.8, Linn % (Auto) 6.7, Eos % (Auto) 1.1, Baso % (Auto) 0.4, Neut # (Auto) 5.8, Lymph # (Auto) 1.8, Linn # (Auto) 0.6, Eos # (Auto) 0.1, Baso # (Auto) 0.0, Sodium 139, Potassium 4.3, Chloride 104, Carbon Dioxide 25, Anion Gap 14.3, BUN 11, Creatinine 0.70, Estimated Creat Clear 135, Estimated GFR 104, Est GFR ( Amer) 125, Glucose 97, Calcium 9.2, Total Bilirubin 0.6, AST 35, ALT 21, Alkaline Phosphatase 47, C-Reactive Protein 27.2 H, Total Protein 8.0, Albumin 4.4, Globulin 3.6 H, Albumin/Globulin Ratio 1.2, Serum HCG, Qual Negative 08/26/24 12:51 08/26/24 12:51 Orders (Tests/Meds): ED MEDICATIONS Discontinued Medications Generic Name Dose Route Start Last Admin Trade Name Freq PRN Reason Stop Dose Admin Ampicillin Sodium/Sulbactam 100 mls @ 200 mls/hr 08/26/24 13:01 08/26/24 13:03 Sodium 3 gm/ Sodium Chloride IV 08/26/24 13:02 200 mls/hr ONCE ONE Administration Iopamidol 100 ml 08/26/24 13:53 08/26/24 13:56 Iopamidol-300 (61%) 100ml Vial IV 08/26/24 13:54 60 ml ONCE ONE Administration Protocol Sodium Chloride 10 ml 08/26/24 13:53 08/26/24 13:55 Sodium Chloride 0.9% 10ml Syr (Rad Only) IV 08/26/24 13:54 10 ml ONCE ONE Administration ORDERS Category Date Time Status CT head/brain w con Stat Cat Scan 08/26/24 12:32 Completed CBC w/Auto Diff [Complete Blood Count Auto Diff] Stat Lab 08/26/24 12:51 Completed CMP [Comprehensive Metabolic Panel] Stat Lab 08/26/24 12:51 Completed CRP [C-Reactive Protein] Stat Lab 08/26/24 12:51 Completed HCG Qualitative, Serum Stat Lab 08/26/24 12:51 Completed Medical Decision Narrative: In summary patient is a 23-year-old female with past medical history described above who presents emergency department for evaluation of otorrhea. Patient is hemodynamically stable nontoxic-appearing upon arrival, afebrile. Given history of recurrent mastoiditis workup will be conducted with hematologic labs, CT of the head with IV contrast. Interventions include Unasyn. Patient clinically does not have signs of decompensated coalescent mastoiditis however has high risk history. Initial workup reviewed by me, no significant leukocytosis, stable mild anemia no MARISOL or critical electrolyte abnormality, CRP mildly elevated hCG negative. CT imaging consistent with chronic mastoiditis stable from May with minimal partial opacification of the left middle ear cavity. Given this patient is appropriate for outpatient management at this time we will continue Ciprodex drops and will follow-up with ENT this coming and was given return precautions. Ct Manager disclaimer Much of this encounter note is an electronic building services coordinator spoken language to printed text. Electronic building services coordinator of the spoken language may permit errors. Although I have reviewed the note, some errors may still exist. Critical Care Critical Care Time Critical Care Time: No
[2024-08-26 13:02] LABS: Basophils % 0.4 % (0.1-2.0); Eosinophils # 0.1 K/mm3 (0.0-0.4); Eosinophils % 1.1 % (0.1-12.0); Hematocrit 35.1 % (37.0-47.0); Hemoglobin 11.2 g/dL (12.2-16.2); Lymphocytes # 1.8 K/mm3 (0.7-4.5); Lymphocytes % 21.8 % (10-50); Mean Corpuscular HGB Conc 31.9 g/dL (31.8-35.4); Mean Corpuscular Hemoglobin 23.9 pg (27.0-31.2); Mean Corpuscular Volume 74.8 fl (81-99); Mean Platelet Volume 10.6 fl (7.4-10.4); Monocytes # 0.6 K/mm3 (0.1-1.0); Monocytes % 6.7 % (1.7-9.3); Neutrophils # 5.8 K/mm3 (1.8-7.8); Neutrophils % 69.8 % (37.0-80.0); Nucleated Red Blood Cells # 0 10^3/uL; Nucleated Red Blood Cells % 0 %; Platelet Count 286 K/mm3 (142-424); Red Blood Count 4.69 M/mm3 (4.20-5.40); Red Cell Distribution Width 15.7 % (11.5-17.5); Red Cell Distribution Width-SD 41.2 fL; White Blood Count 8.3 K/mm3 (4.8-10.8)
[2024-08-26] MEDS: AMPICILLIN SODIUM/SULBACTAM 3 GM in 0.9 % SODIUM CHLORIDE 100 ML IV (13:03)
[2024-08-26 13:12] LABS: Chloride 104 mmol/L (98-107)
[2024-08-26 13:13] LABS: Albumin Level 4.4 g/dl (3.5-5.0); Potassium 4.3 mmoL/L (3.5-5.1); Sodium 139 mmol/L (136-145)
[2024-08-26 13:15] LABS: Alanine Aminotransferase 21 U/L (12-78); Anion Gap 14.3 mEq/L (5-15); Aspartate Amino Transferase 35 U/L (14-36); Blood Urea Nitrogen 11 mg/dl (7-17); Carbon Dioxide 25 mmol/L (22.0-30.0); Creatinine Clearance Estimated 135 mL/min (50-200); Estimated Glomerular Filt Rate 104 ml/min (>60); GFR (African American) 125 ML/MIN (>60)
[2024-08-26 13:16] LABS: Albumin/Globulin Ratio 1.2 (1.1-1.8); Alkaline Phosphatase 47 U/L (38-126); Bilirubin,Total 0.6 mg/dl (0.2-1.3); Calcium 9.2 mg/dl (8.4-10.2); Globulin 3.6 g/dL (1.3-3.2); Glucose 97 mg/dl (74-100)
[2024-08-26 13:21] LABS: C-Reactive Protein 27.2 mg/L (0-4)
[2024-08-26 13:40] LABS: HCG Qualitative, Serum Negative (Negative)
--- NOTE | 2024-08-26 13:48 | PC.NURSE ---
PT TO CT
[2024-08-26] MEDS: SODIUM CHLORIDE 0.9% 10ML SYR (RAD ONLY) 10 ML IV (13:55)
[2024-08-26] MEDS: IOPAMIDOL-300 (61%) 100ML VIAL 100 ML IV (13:56)
[2024-08-26 14:47] VITALS: BP 117/69; PULSE 91; RESP 16; TEMP 36.6; O2SAT 100
[2024-08-26 15:01] VITALS: BP 119/57; PULSE 66; RESP 18; TEMP 36.7; O2SAT 98
--- OUTSIDE RECORDS SUMMARY | 2024-08-26 23:21 | XMS_ITS | Data Portability ---
Author Organization PAIGE EVERETT [facility] Address [address] [facility] [address] [place] [address] Care Team Providers Care Marketing Developer Name Role Phone TRINITY IVORY Primary Care Provider CAILIN PINEDA Referring Provider Assessment No assessment recorded. Plan of Treatment Reminders Order Date Submit Date Provider Last Modified By Organization Details Last Modified Time Details Appointments RECHECK 2024 01:10P M DAREK PIMENTEL MD Not available Not available Not available Lab None recorded . Referral None recorded . Procedures None recorded . Surgeries None recorded . Imaging None recorded . Medication Orders Ciprodex 0.3 %-0.1 % ear drops,zaragoza spension 2023 024 [facility], [address] [place] [address], [phone], 12/04/2023 17:20:00 Patient TargetsNo targets recorded. Patient Instructions Encounter Date Encounter Id Patient Instructions Last Modified By Organization Details Last Modified Time 12/04/[id number] of tempora l bone reviewed and discussed with pt. 2. Consider pick line and consultation with infectious disease. 3. Left binocular microscopy performed in office today. Full risks, complications, and benefits of non-operative intervention have been thoroughly discussed. Understanding was expressed, informed consent given, and we will proceed with the discussed treatment plan. There were no questions for me at the end of the office visit. 4. Rx - Start Ciprodex 0.3 %-0.1 % ear drops,suspension INSTILL 4-6 DROPS INTO AFFECTED EAR(S) BY OTIC ROUTE 2 TIMES PER DAY FOR 7 DAYS 5. Follow up in 2-3 weeks [email or web address] Not available 12/04/2023 12:46:01 Might need LEFT mastoidectomy [email or web address] Not available 12/04/2023 12:48:07 01/01/2024 [id number] 1. Dae Photos obtained in office today 2. Ordered CT scan of the Temporal Bone 3. F/u with CT results in 1 month [email or web address] Not available 01/01/2024 13:44:11 Reason for Referral None Reported. Results Created Date Observation Date Name Description Value Unit Range Abnormal Flag Note LastModifiedBy Organization Detail LastModifiedTime 01/09/20 24 01/09/2024 CT, tempo ral bone, w/o contr ast [facility] [address] [place] [address] Patijerson t Name: BELEM palomino : 001 Pat[place]erson t 45 Orderi ng Provid er: JAMIL Welsh V OSETIN LANDON EXAM DATE: 2023 EXAM: CT TEMPOR AL BONES W/O CONTRA ST HISTOR Y: 23-yea r-old female with left mastoi ditis. . COMPAR DARIAN: None. TECHNI QUE: CT of the petrou s tempor al bone was obtain ed utiliz ing multip le contig uous 3.67 mm axial slices withou t the use of intrav enous contra st. Axial, Stenve rs, Poschl , and brito l reform ats were also obtain ed. FINDIN GS: The drug abuse technician al audito ry canals , tympan ic membra chong, and osseou s labyri nths are normal bilate rally. There is no eviden ce of erosio n of the ossicl es, scutum , or tegmen tympan i. The right mastoi d air cells are well-p neumat ized and well aerate d. There is a small amount of fluid in the left mastoi d air cells. No suspic ious osseou s lesion or fractu re is identi fied. The visual ized brain parenc hyma appear s normal . There is modera te mucosa l thicke lady in the right spheno id sinus. IMPRES SHANNAN: 1. There is a small amount of fluid in the left mastoi d air cells. The tempor al bones are otherw ise normal in appear ance. Interp reted By: Julisa andrews MD Electr onical ly Signed By: Julisa andrews MD on 024 11:12 AM [facility] [address] , [place], [address], 01/12/2024 09:49:28 Result Notes None recorded. Procedures Surgical History Date Name Laterality Status Provider Name and Address Organization Details Recorded Time 12/04/19 Binocular Microscopy completed Caleb Hagan [facility] 12/04/2023 12:43:44 section completed Kaylin Cao [facility] 12/04/2023 11:01:59 cholecystectomy completed Kaylin Edmondson [facility] 12/04/2023 11:02:13 Imaging Results Imaging Date Name Status LastModified by Organiz ation Details LastModified Time 01/09/2024 CT, temporal bone, w/o contrast completed [facility] [address] , [place], [address], 01/12/2024 09:49:28 Procedure Notes None recorded. Medical Equipment None Reported. Allergies No known drug allergies Medications Name Sig Start Date Stop Date Status Note LastModified by Organization Details LastModified Time nifedipine ER 30 mg tablet,exte nded release 24 hr TAKE 1 TABLET BY MOUTH ONCE DAILY 12/03 completed Not Available Not Available Not Available venlafaxine ER 37.5 mg capsule,ext ended release 24 hr TAKE 1 CAPSULE BY MOUTH ONCE DAILY active Not Available Not Available No t Available venlafaxine ER 75 mg capsule,ext ended release 24 hr TAKE 1 CAPSULE BY MOUTH ONCE DAILY WITH FOOD active Not Available Not Available No t Available albuterol sulfate 2.5 mg/3 mL (0.083 %) solution for nebulizatio n USE 1 VIAL IN NEBULIZER EVERY 6 HOURS NEEDED 12/03 completed Not Available Not Available Not Available azithromyci n 250 mg tablet TAKE 2 TABLETS BY MOUTH ON DAY 1, THEN TAKE 1 TABLET DAILY ON DAYS 2-5 active Not Available Not Available No t Available ibuprofen 800 mg tablet TAKE ONE TABLET BY MOUTH EVERY 8 HOURS NEEDED FOR PAIN --TAKE WITH FOOD-- 12/03 completed Not Available Not Available Not Available fluconazole 150 mg tablet TAKE ONE TABLET BY MOUTH A ONE-TIME DOSE active Not Available Not Available No t Available hydrocodone 5 mg-acetamin ophen 325 mg tablet TAKE ONE TABLET BY MOUTH EVERY 6 HOURS NEEDED MAY CAUSE DROWSINES S active Not Available Not Available No t Available ondansetron HCl 8 mg tablet TAKE ONE TABLET BY MOUTH EVERY 8 HOURS NEEDED active Not Available Not Available No t Available prednisone 20 mg tablet TAKE 1 TABLET BY MOUTH TWICE DAILY FOR 5 DAYS 12/03 completed Not Available Not Available Not Available sulfamethox azole 800 mg-trimetho prim 160 mg tablet TAKE ONE TABLET BY MOUTH TWICE DAILY FOR 10 DAYS 12/03 completed Not Available Not Available Not Available ketorolac 10 mg tablet TAKE ONE TABLET BY MOUTH EVERY 6 HOURS NEEDED ---TAKE WITH FOOD OR MILK--- 12/03 completed Not Available Not Available Not Available meloxicam 7.5 mg tablet TAKE 1 TABLET BY MOUTH ONCE DAILY 12/03 completed Not Available Not Available Not Available amoxicillin 875 mg tablet TAKE 1 TABLET BY MOUTH TWICE DAILY FOR 7 DAYS 12/03 completed Not Available Not Available Not Available cephalexin 500 mg capsule TAKE 1 CAPSULE BY MOUTH 4 TIMES DAILY FOR 7 DAYS 12/03 completed Not Available Not Available Not Available hydrochloro thiazide 12.5 mg capsule TAKE 1 CAPSULE BY MOUTH ONCE DAILY IN THE MORNING active Not Available Not Available No t Available sertraline 25 mg tablet TAKE 1 TABLET BY MOUTH ONCE DAILY 12/03 completed Not Available Not Available Not Available cefuroxime axetil 500 mg tablet TAKE 1 TABLET BY MOUTH EVERY 12 HOURS FOR 10 DAYS 12/03 completed Not Available Not Available Not Available levofloxaci n 500 mg tablet TAKE ONE TABLET BY MOUTH ONCE DAILY FOR 7 DAYS -- FINISH ALL MEDICINE -- 12/03 completed Not Available Not Available Not Available methylpredn isolone 4 mg tablets in a dose pack TAKE BY MOUTH DIRECTED ON INSIDE OF PACKAGE FOR 6 DAYS 12/03 completed Not Available Not Available Not Available cefdinir 300 mg capsule TAKE ONE CAPSULE BY MOUTH TWICE DAILY FOR 7 DAYS 12/03 completed Not Available Not Available Not Available sertraline 50 mg tablet TAKE 1 TABLET BY MOUTH ONCE DAILY 12/03 completed Not Available Not Available Not Available amoxicillin 875 mg-potassiu m clavulanate 125 mg tablet TAKE ONE TABLET BY MOUTH TWICE DAILY FOR 10 DAYS -- FINISH ALL MEDICINE -- 12/03 completed Not Available Not Available Not Available tobramycin 0.3 %-dexametha sone 0.1 % eye drops,suspe nsion INSTILL 4 DROPS INTO LEFT EAR TWICE DAILY FOR 10 DAYS --SHAKE WELL BEFORE USE-- active Not Available Not Available No t Available oxycodone 5 mg tablet TAKE 1 TABLET BY MOUTH EVERY 6 HOURS NEEDED FOR PAIN 12/03 completed Not Available Not Available Not Available azithromyci n 500 mg tablet TAKE ONE TABLET BY MOUTH ONCE DAILY FOR 10 DAYS -- FINISH ALL MEDICINE -- 12/03 completed Not Available Not Available Not Available metaxalone 800 mg tablet TAKE ONE TABLET BY MOUTH THREE TIMES DAILY NEEDED active Not Available Not Available No t Available ciprofloxac in 0.3 %-dexametha sone 0.1 % ear drops,suspe nsion instill 4-6 drops into affected ears TWICE DAILY FOR 7 DAYS --SHAKE WELL BEFORE USE-- active Not Available Not Available No t Available Bactrim DS active Not Available Not Av ailable Not Available desvenlafax ine succinate ER 50 mg tablet,exte nded release 24 hr active Not Available Not Available Not Available Vraylar 1.5 mg capsule TAKE 1 CAPSULE BY MOUTH ONCE DAILY active Not Available Not Available No t Available Wegovy 1.7 mg/0.75 mL subcutaneou s pen injector INJECT 1 SYRINGE SUBCUTANE OUSLY ONCE A WEEK FOR 28 DAYS active Not Available Not Available No t Available Wegovy 1 mg/0.5 mL subcutaneou s pen injector INJECT 1 SYRINGE SUBCUTANE OUSLY ONCE A WEEK active Not Available Not Available No t Available Wegovy 0.25 mg/0.5 mL subcutaneou s pen injector INJECT 1 SYRINGE SUBCUTANE OUSLY ONCE A WEEK active Not Available Not Available No t Available Wegovy 0.5 mg/0.5 mL subcutaneou s pen injector INJECT 1 SYRINGE SUBCUTANE OUSLY ONCE A WEEK active Not Available Not Available No t Available Vitals Date Recorded Body height Body mass index (BMI) Body weight Heart rate Systolic blood pressure Diastolic blood pressure Provider Name and Address Organization Details Last Updated DateTime 4 10.16 cm 247.2 kg/m2 2551.46 g 83 /min 147 mm[Hg] 111 mm[Hg] Kaylin Edmondson [facility] 4 10:59:12 Date Recorded Body height Body mass index (BMI) Body weight Body temperature Heart rate Systolic blood pressure Diastolic blood pressure Provider Name and Address Organization Details Last Updated DateTime 4 177.8 cm 46.8 kg/m2 701964. 11 g 97.3 [degF] 97 /min 113 mm[Hg] 87 mm[Hg] Gema Laurent [facility] 4 13:21:57 Social History Question Answer Notes LastModified by Organizat ion Details LastModified Time Tobacco Smoking Status Never Smoker Kaylinmarcella Edmondson [facility] 12/04/2023 11:01:43 What Is Your Level Of Alcohol Consumption? Occasional [email or web address] Information not available 12/04/2023 Sex: Unknown Functional Status None recorded. Mental Status None recorded. Family History Nothing Reported. Medical History Condition Response Anxiety Disorder Y Hypertension Y Depression Y Gynecological HistoryNo gynecological history recorded. Obstetrics History GPAL:G 0 P 0 0 0 0 Past Encounters Encounter ID Performer Location Encounter Start Date Encounter Closed Date Diagnosis/Indication Diagnosis SNOMED-CT Code Diagnosis ICD10 Code Diagnosis Note [id number] MD [facility] [address] [place] [address] 12/04/2023 09:29:39 12/04/2023 13:13:42 Bilateral earache 428609022 H92.03 Chronic le ft mastoiditis 7452227430 175061 H70.[address] temporal bone = opacificat ion left mastoid cavity [id number] MD [facility] [address] [place] [address] 01/01/2024 13:11:08 01/08/2024 11:04:06 Chronic left mastoiditis 7422545374 373744 H70.[address] temporal bone = opacificat ion left mastoid cavity Bilateral earache 445598 003 H92.03 Health Concerns Section Related Observation LastModified by Organization Detai ls LastModified Time None Recorded Concern Status LastModified by Organization Details LastModified Time None Recorded Advance Directives Directive None Recorded Payers Encounter Date Sequence Insurance Name Policy Number Policy Mcmanus Covered Member ID Mcmanus Member ID Guarantor Name 12/04/2023 1 [place] [id number] Federico Colon [id number] Karo Colon 01/01/2024 1 [place] [id number] Federico Colon [id number] Karo Colon Notes Date Note Type Note Provider Name and Address Organization Details Recorded Time 12/04/2023 text/html Karo Colon ([age]F) visits our office for a a consultation regarding her left ear. She has had recurring infections and pain for 3 months. Karo was in the [facility] ER on 12/03/23 for complaints of left otalgia and purulent yellowish green thick drainage from the ears. She reports that her issues began back in August, but were exacerbated on 12/03/23. She has been on several antibiotics including cefdinir and Septra and steroids for her issue, without benefit. Karo had a tube placed in her left ear ~ 2 weeks ago. She was placed on Tobradex ear drops last week.She underwent myringotomy tube placement on 11/18/[address] Jazmin Croft09/24/23 -culture of ear drainage = serratia 11/24/23 -culture of ear drainage = achromobacter species 12/03/23 CT temporal bone = opacification left mastoid cavity DAREK PIMENTEL MD [address] [facility], [place], [address], [facility] 12/04/2023 13:00:07 01/01/2024 text/html Karo visits [facility] in office today to follow up on her left mastoiditis. Pt had a pic line placed in the right arm for treatement of an infection. Pain had subsided for a few weeks, but returned in the past few days. Pt had a CT scan about 4 weeks ago. DAREK PIMENTEL MD [address] [facility], [place], [address], [facility] 01/02/2024 15:44:38 OBGyn Episode No OBEpisode recorded.
== END 2024-08-26 15:03 | disposition home or self-care (01) ==
PROVIDERS: Emergency Provider Emergency Medicine; PCP Physician Assistant
DX: H70.12 Chronic mastoiditis, left ear (principal); H92.02 Otalgia, left ear
CPT/HCPCS: 96374; 99284; 70460; 80053; 84703; 85025; 86140; J0295; Q9967

== ENCOUNTER 2024-11-04 14:00 | Outpatient (CLI) | payer BC, SELFPAY ==
[2024-11-05 19:18] LABS: Neisseria gonorrhoeae, NAA Negative (Negative)
== END 2024-11-04 23:59 | disposition home or self-care (01) ==
LOC: LAB.DROPOF 11-05 13:53
PROVIDERS: PCP Obstetrics & Gynecology; Visit Provider Obstetrics & Gynecology
DX: O21.9 Vomiting of pregnancy, unspecified (principal); O99.340 Other mental disorders complicating pregnancy, unspecified trimester; F41.9 Anxiety disorder, unspecified; Z3A.00 Weeks of gestation of pregnancy not specified
CPT/HCPCS: 87491; 87591

== ENCOUNTER 2024-11-18 16:36 | Outpatient (CLI) | payer BC, SELFPAY ==
--- OUTSIDE RECORDS SUMMARY | 2024-08-19 11:15 | XMS_ITS ---
Author Organization [facility] Address [address] [facility] [address] [place] [id number] Care Team Providers Care Lead Customer Service Representative Name Role Phone Iraj Bakera Primary Care Provider [phone] Allergies No Known Allergies Results Component [...] Interpretation:Negative Performing Lab: Notes/Report: Test performed by [employer] [facility] [employer] [address], [address], [place] [address] Phoenix Schwarz MD, Machine Sneller CLIA: [id number] B burgdorferi (Lyme Disease) IgG Negative Negative B burgdorferi (Lyme Disease) IgM Negative Negative P-Comprehensive Metabolic Pa gene (CMP) Reviewed date:08/26/2024 02:10:10 PM Interpretation:Glu 101 Performing Lab: Notes/Report: Test performed by [employer] [facility] , [address], [place] [address] Phoenix Schwarz MD, Machine Sneller CLIA: [id number] Sodium 141 135-145 mmol/L Potassium 4.1 3.5-5.3 [...] A/G Ratio 1.5 1.1-2.5 [facility]th[facility], [facility] Reviewed date:08/26/2024 02:10:10 PM Interpretation:CRP 0.81 Performing Lab: Notes/Report: Test performed by [employer] [address] [facility] , [address], [place] [address] Phoenix Schwarz MD, Machine Sneller CLIA: [id number] Rheumatoid Factor <10 <14.1 IU/mL C-Reactive Protein (CRP) 0.81 <0.50 mg/dL Antinuclear Antibodies (EVER) Screen, Reflex EVER 9 Panel Negative Negative This test is performed by Multiplex Bead Immunoassay methodology. Antinuclear Antibodies (EVER) Result Note SEE COMMENT For positive Autoantibodies, please refer to the interpretive chart here: [email or web address] [email or web address] pretive-Chart.[email or web address] CCP Antibodies <0.5 <0.5-3.0 U/mL [...] 08/19/2024 Encounters Encounter Location Date Provider Diagnosis [facility] [address] [facility] [address] [place] [id number] 08/19/2024 Nicci Baker Polyarthralgia M25.5 0 and [...] phone to repo rt test results, Reason: Provider Name:Nicci Carney y, 11/18/2024 04:00:00 PM, [address], [address], [place], [phone], Progress Notes * Karo COLONDOB:2000 (23 yo F)Acc No.[id number]:08/19/2024 Progress Notes Patient: Tiera BARRONica Provider: MONA He :2000 A ge:23 Y S ex:Female Date:08/19/2024 Phone: Address:[place], [place] Subjective: * Chief Complaints: * 1 . [...] Flu Test- Nasal Swab, Modifiers: QW , 38762 CBC WITH AUTO DIFF, 44363 VENIPUNCT, ROUTINE*, 3075F SYST BP GE 130 - 139MM HG, 3079F DIAST BP 80-89 MM HG * Follow Up: v ia phone to report test results * Images: Billing Information: * Visit Code: 39177 Office Visit, Est Pt., Level 3. * Procedure Codes: 47985 Flu Test- Nasal Swab. Modifiers: QW 13666 CBC WITH AUTO DIFF. 28652 VENIPUNCT, ROUTINE*. 3075F SYST BP GE 130 - 139MM HG. 3079F DIAST BP 80-89 MM HG. * Electronic signature of MONA Jolley on 11/18/2024 at 04:38 PM EDT Sign off status: Pending * Provider: MONA He Date: 0 08/19/2024 Generated for Shantanu wong/Alondra/eTransmitting on: 0 11/18/2024 04:38 PM EDT History and Physical Notes * [...]
--- OUTSIDE RECORDS SUMMARY | 2024-08-24 04:55 | XMS_ITS ---
Author Organization [facility] Address [address] [facility] [address] [facility] [address] [place] [phone] Care Team Providers Care Automotive Wholesale Parts Advisor Name Role Phone Nicci Baker Primary Care Provider REASON FOR VISIT Lab Draw Encounters Encounter Location Date Provider Diagnosis [facility] [address] [place] [id number] 08/24/2024 Nicci Baker Plan Of Treatment Next Appt Details Provider Name:Nicci Carney y, 11/18/2024 04:00:00 PM, [address], [place], [place], [phone], Progress Notes * Karo COLONDOB:2000 (23 yo F)Acc No.[id number]:08/24/2024 Patient: Tiera BARRONica Provider: MONA He :2000 A ge:23 Y S ex:Female Date:08/24/2024 Phone: Address:[place] Subjective: * Chief Complaints: * 1 . Lab Draw. * Medical History: Objective: * Vitals: Assessment: Plan: * Treatment: * Images: Billing Information: * Visit Code: * Procedure Codes: * Electronic signature of MONA Jolley on 11/18/2024 at 04:38 PM EDT Sign off status: Pending * Provider: MONA He Date: 08/24/2024 Generated for Printi ng/Famiguelg/eTransmitting on: 11/18/2024 04:38 PM EDT
--- OUTSIDE RECORDS SUMMARY | 2024-11-18 16:38 | XMS_ITS | Clinical Summary ---
Author Organization [facility] Address [address] [place] [address] Phone Care Team Providers Care Business Systems Consultant Name Role Phone Jasmeet SANTIAGO, Bhavana Maynard Unavailable Conditions or Problems Problem Name Problem Code Onset Date Status Entry Date Provider Comment Standard Description Annotate Ear pain, left 0895353799 (SNOMED CT) 06/01 Active 06/01 Cesar Argueta MD Otalgia of left ear Acute mastoiditis, left 991525052 (SNOMED CT) 06/01 Active 06/01 Cesar Argueta MD Acute mastoiditis Screening for HIV 688997622 (SNOMED CT) 12/17 Active 12/17 Gorge Handy Procedure carried out on subject Acute recurrent suppurative otitis media, left 139924750 (SNOMED CT) 12/04 Active 12/04 Sasha Malik Recurrent acute suppurative otitis media Acute recurrent serous otitis media, left 202349379 (SNOMED CT) 12/03 Active 12/03 Sasha Malik Acute non-suppurat gokul serous otitis media Serratia marcescens infection B96.89 (ICD-10-CM) 12/03 Active 12/03 Cesar Argueta MD Other specified bacterial agents as the cause of diseases classified elsewhere Facial swelling 751691505 (SNOMED CT) 12/03 Active 12/03 Aida Argueta Facial swelling Recurrent otitis media (ROM) 7978118532969 104 (SNOMED CT) 12/03 Inactive 12/03 Aida Argueta Otitis media of right ear Chronic mastoiditis, left 25376704 (SNOMED CT) 12/03 Active 12/03 Lydia Medrano Chronic mastoiditis Medications Medication Instructions Start Date Stop Date Generic Name NDC Provider ceftriaxone recon kikanoemi Rocephin 2gm IV Q 24hrs/ OPAT 06/01 ceftriaxone recon katy espana recon solnoemi Rocephin 2gm IV Q 24hrs INPAT 06/01 ceftriaxone recon katy Gonzales METRONIDAZOLE 500 MG TABS Take 1 tablet by mouth three times a day 06/01 metronidazole 05196044605 Cesar Argueta MD WEGOVY 0.5 MG/0.5ML SOAJ 06/01 semaglutide (weight loss) 68630035695 Lynn Jarvis HYDROCHLOROTHIAZIDE 12.5 MG TABS 06/01 [facility] 24286725089 [facility] VENLAFAXINE HCL 37.5 MG TABS 06/01 venlafaxine 04810112574 [facility] PRISTIQ 100 MG IL65Q-ROG once a day desvenlafaxine succinate 29489270565 [facility] ZOSYN 4-0.5 GM/100ML SOLN Q 8 hrs/OPAT 01/26 piperacillin-tazoba ctam-dextrs 28697147256 Bhavana Alamo RN WEGOVY 0.5 MG/0.5ML SOAJ 06/01 semaglutide (weight loss) 66425224190 Farrah Gunjan VENLAFAXINE HCL 37.5 MG TABS 06/01 venlafaxine 55706000005 Farrah Gunjan HYDROCHLOROTHIAZIDE 12.5 MG TABS 11/16 hydrochlorothiazide 15930171184 Farrah Gunjan Medications Administered No information available. Allergies, Adverse Reactions, Alerts No information available. Results Date Name Value Unit Range Flag Description Lab Report: CK CPK 40 U/L 20-180 Creatine javier se [Enzymatic activity/volume] in Serum or Plasma Chart Maintenance: lab entry BASOPHIL % 0.6 % Basophils/ 100 leukocytes in Blood by Manual count MONOCYTE BF 6.8 % monocytes as percent of body fluid leukocytes LYMPHS % 29 % Lymphocytes/ 100 leukocytes in Blood by Automated count Office Visit: Office Visit:3 MEDS REVIEW Done Documenta tion of current medications (procedure) Lab Report: CBC WITH AUTO DI FFERENTIAL ZZ-GE-unk 0.0 /100 WBC 0.0-0.2 GE use only - fo r LinkLogic import when terms are not otherwise specified IMMATUREGRAN 0.02 10*3/MM3 0.00-0.05 Immature granulocytes [#/volume] in Blood BASO# 0.06 10*3/mm3 0.00-0.20 Basophils [#/vol ume] in Blood EOS ABSLT 0.14 10*3/uL 0.00-0.40 Eosinophi ls [#/volume] in Blood MONOSCT AUTO 0.34 10*3/uL 0.10-0.90 Monocy diana [#/volume] in Blood by Automated count LYMPHCT AUTO 1.90 10*3/mm3 0.70-3.10 Lymph ocytes [#/volume] in Blood by Automated count ABS NEUTROPH 4.63 10*3/uL 1.70-7.00 Neutro phils [#/volume] in Blood IMM GRANU % 0.3 % 0.0-0.5 Immature granulocytes/100 leukocytes in Blood % EOS AUTO 2.0 % 0.3-6.2 Eosinophil s/100 leukocytes in Blood by Automated count MONOCYTE % 4.8 % 5.0-12.0 L Monocytes /100 leukocytes in Blood by Automated count LYMPHOCY BF 26.8 % 19.6-45.3 lymphoc ytes as percent of body fluid leukocytes NEUTROP BF 65.3 % 42.7-76.0 Neutroph ils/100 leukocytes in Body fluid PLATELETS 280 10*3/mm3 140-450 Platelets [#/volume] in Blood by Automated count RDW_ 15.8 12.3-15.4 H RDW, no uni ts MCHC 31.6 G/DL 31.5-35.7 MCHC [Mass/ volume] by Automated count MCH 23.7 pg 26.6-33.0 L MCH [Entiti c mass] by Automated count MCV 74.9 fL 79.0-97.0 L MCV [Entiti c volume] by Automated count HCT 36.4 % 34.0-46.6 Hematocrit [Volume Fraction] of Blood by Automated count HGB 11.5 g/dL 12.0-15.9 L Hemoglobin [Mass/volume] in Blood RBC 4.86 10*6/mm3 3.77-5.28 Erythrocyt es [#/volume] in Blood by Automated count WBC 7.09 10*3/mm3 3.40-10.80 Leukocyte s [#/volume] in Blood by Automated count Lab Report: SEDIMENTATION RA TE ESR 37 mm/h 0-20 H Erythrocyte sedimentation rate by Westergren method Lab Report: C-REACTIVE PROTE IN CRP 0.78 mg/dL 0.00-0.50 H C reactive protein [Mass/volume] in Serum or Plasma Lab Report: COMPREHENSIVE ME TABOLIC PANEL ANIONGAP 12.0 mmol/L 5.0-15.0 anion gap, serum BUN/CREAT 17.5 7.0-25.0 Urea nitrogen/Creatinine [Mass Ratio] in Serum or Plasma BILI TOTAL 0.4 mg/dL 0.0-1.2 Bilirubin. total [Mass/volume] in Serum or Plasma ALK PHOS 69 U/L 39-117 Alkaline juliette sphatase [Enzymatic activity/volume] in Blood SGOT (AST) 12 U/L 1-32 Aspartate aminotransferase [Enzymatic activity/volume] in Serum or Plasma SGPT (ALT) 13 U/L 1-33 Alanine aminotransferase [Enzymatic activity/volume] in Serum or Plasma ALBUMIN 4.2 g/dL 3.5-5.2 Albumin [Mass/volume] in Serum or Plasma PROTEIN, TOT 7.1 g/dL 6.0-8.5 Protein [Mass/volume] in Serum or Plasma CALCIUM 9.3 mg/dL 8.6-10.5 Calcium [Moles/volume] in Serum or Plasma CO2 23.0 mmol/L 22.0-29.0 Carbon diox maru, total [Moles/volume] in Venous blood CHLORIDE 105 mmol/L 98-107 Chloride [Moles/volume] in Serum or Plasma POTASSIUM 4.2 mmol/L 3.5-5.2 Potassium [Moles/volume] in Serum or Plasma SODIUM 140 mmol/L 136-145 Sodium [Moles/volume] in Serum or Plasma CREATININE 0.63 mg/dL 0.57-1.00 Creatini ne [Mass/volume] in Serum or Plasma BUN 11 mg/dL 6-20 Urea nitrogen [Mass/volume] in Serum or Plasma GLUCOSE SER 86 mg/dL 65-99 Glucose [Mass/volume] in Serum or Plasma Plan of Care Type Date Detail Pending order CMP Pending order CBC with Differe ntial Pending order C- reactive prot ein Pending order Sedimentation Ra te (ESR) Pending order CMP Pending order CBC with Differe ntial Pending order C- reactive prot ein Pending order Sedimentation Ra te (ESR) Pending order STAT Labs Pending order CBC with Differe ntial Pending order CMP Pending order C- reactive prot ein Pending order Sedimentation Ra te (ESR) Pending order Stat Weekly Labs Pending order X-Ray, Chest (PI CC Placement only) Pending order CMP Pending order CBC with Differe ntial Pending order C- reactive prot ein Pending order Sedimentation Ra te (ESR) Pending order STAT Labs Pending order STAT Labs Pending order STAT Labs Pending order CMP Pending order CBC with Differe ntial Pending order C- reactive prot ein Pending order Sedimentation Ra te (ESR) Pending order STAT Labs Pending order STAT Labs Pending order CMP Pending order CBC with Differe ntial Pending order C- reactive prot ein Pending order Sedimentation Ra te (ESR) Pending order Stat Weekly Labs Pending order STAT Labs Pending order STAT Labs Pending order CMP Pending order CBC with Differe ntial Pending order C- reactive prot ein Pending order Sedimentation Ra te (ESR) Procedures Code Procedure Name Date Entry Date CPT-24742 CMP [id number] CBC with Differential 2024 CPT-44795 C- reactive protein CPT-44548 Sedimentation Rate (ESR) 202 09/17/27 CPT-11545 CMP [id number] CBC with Differential 2024 CPT-96583 C- reactive protein CPT-52720 Sedimentation Rate (ESR) 09/16/20 CPT-sl STAT Labs [id number] CBC with Differential 2024 CPT-92019 CMP CPT-63333 C- reactive protein CPT-00395 Sedimentation Rate (ESR) 09/17/15 CPT- stat weekly Stat Weekly Labs CPT-85392 X-Ray, Chest (PICC Placement only) 06/02 CPT-60198 CMP [id number] CBC with Differential 2024 CPT-94210 C- reactive protein CPT-12382 Sedimentation Rate (ESR) 09/16/13 CPT-sl STAT Labs CPT-sl STAT Labs CPT-sl STAT Labs CPT-46606 CMP [id number] CBC with Differential 2023 CPT-63119 C- reactive protein CPT-48880 Sedimentation Rate (ESR) 08/24/14 CPT-sl STAT Labs CPT-sl STAT Labs CPT-89833 CMP [id number] CBC with Differential 2023 CPT-86599 C- reactive protein CPT-18423 Sedimentation Rate (ESR) 202 08/23/24 CPT- stat weekly Stat Weekly Labs CPT-sl STAT Labs CPT-sl STAT Labs CPT-30386 CMP [id number] CBC with Differential 2023 CPT-63381 C- reactive protein CPT-15507 Sedimentation Rate (ESR) 202 08/23/17 Vital Signs Date Name Value Unit Description BMI (Body Mass Index) 48.10 kg/m2 Bod y Mass Index (Ratio) Body Temperature 97.7 [degF] temperat ure E&M BP Diastolic 70 mm[Hg] blood pressu re, diastolic BP Systolic 111 mm[Hg] blood pressur e, systolic Heart Rate 87 /min pulse rate Height 70 [in_us] height E&M Respiratory Rate 16 /min respirat ory rate E&M Weight Measured 335.25 [lb_av] weight E& M Weight Measured 335.25 [lb_av] weight E& M Immunizations No information available. Advance Directives Directive Description Start Date NO ADVANCED DIRECTIVES
--- OUTSIDE RECORDS SUMMARY | 2024-11-18 16:39 | XMS_ITS | Patient Health Record ---
[facility] Address [address] [place] [id number] Care Team Providers Care [employer] Name Role Phone Nicci Baker Primary Care Provider [phone] Cris Bloom Unavailable [phone] Sulma Amador Unavailable [phone] Allergies No Known Allergies Results Component Value [...] - 38 plat 272 100 - 400 Rapid Strep- Inhouse Reviewed date:07/01/2024 05:06:36 PM [...] - 38 plat 276 100 - 400 TEN-Upper Respiratory PCR Reviewed date:02/13/2024 08:50:15 AM Interpretation:Abnormal; Rhinovirus Performing Lab: Notes/Report: Abnormal; Rhinovirus Rapid Strep- Inhouse Reviewed date:01/22/2024 09:29:34 AM [...] - 38 plat 265 100 - 400 CBC Fingerstick (in house) Reviewed date:03/17/2024 02:55:29 [...] - 38 plat 149 100 - 400 Influenza Screen (in house) Reviewed date:08/19/2024 04:19:52 [...] 274 100 - 400 P-Lyme Disease (B. silvino augustinei), IgG/IgM, NAINA, Serum Reviewed date:08/26/2024 02:10:10 PM Interpretation:Negative Performing Lab: Notes/Report: Test performed by [facility] [address] [place] [address] Dr[address], [place] [address] Phoenix Schwarz MD, Central Office Installer CLIA: [id number] B burgdorferi (Lyme Disease) IgG Negative Negative B burgdorferi (Lyme Disease) IgM Negative Negative P-Comprehensive Metabolic Pa gene (CMP) Reviewed date:08/26/2024 02:10:10 PM Interpretation:Glu 101 Performing Lab: Notes/Report: Test performed by [facility] [address] [place] [address] , [address], [place] [address] Phoenix Schwarz MD, Central Office Installer CLIA: [id number] Sodium 141 135-145 mmol/L Potassium 4.1 3.5-5.3 [...] mg/dL A/G Ratio 1.5 1.1-2.5 [facility] Reviewed date:08/26/2024 02:10:10 PM Interpretation:CRP 0.81 Performing Lab: Notes/Report: Test performed by [facility] [address] [place] [address] , [address], [place] [address] Phoenix Schwarz MD, Central Office Installer CLIA: [id number] Rheumatoid Factor <10 <14.1 IU/mL C-Reactive Protein (CRP) 0.81 <0.50 mg/dL Antinuclear Antibodies (EVER) Screen, Reflex EVER 9 Panel Negative Negative This test is performed by Multiplex Bead Immunoassay methodology. Antinuclear Antibodies (EVER) Result Note SEE COMMENT For positive Autoantibodies, please refer to the interpretive chart here: [email or web address] CCP Antibodies <0.5 <0.5-3.0 U/mL Erythrocyte Sedimentation Rate (ESR), Automated Specimen received beyond stability.. Test cannot be performed. Acceptable stability from collection is [24 hours]. H-VITAMIN D Reviewed date:06/16/2024 09:14:56 AM Interpretation:16.4 Performing Lab: Notes/Report: TVITD 16.4 30-100 ng/mL Deficient <20 ng/mL Insufficient 20-30 ng/mL Sufficient 30-100 ng/mL Potential Toxicity >100 ng/mL H-Lipid Panel Reviewed date:06/16/2024 09:14:56 AM Interpretation:dldl 98.11 Performing Lab: Notes/Report: Patient Fasting? Y TRIG 45 30-150 mg/dl CHOL 163 140-200 mg/dl DLDL 98.11 100-129 mg/dL VLDL 9 0-40 mg/dL HDL 47 40-60 mg/dl CHLHDL 3.5 1-3.5 H-CMP Reviewed date:06/16/2024 09:14:56 AM Interpretation:Normal Performing Lab: Notes/Report: NA 141 136-145 mmol/L K 4.4 3.5-5.1 mmoL/L CL 107 98-107 mmol/L CO2 24 22.0-30.0 mmol/L GAP 14.4 5-15 mEq/L BUN 11 7-17 mg/dl CREATT 0.70 0.52-1.04 mg/dl GFRAA 125 >60 ML/MIN EGFR 104 >60 ml/min GLU 95 74-100 mg/dl CA 9.2 8.4-10.2 mg/dl BILIT 0.4 0.2-1.3 mg/dl AST 20 14-36 U/L ALT 20 12-78 U/L TP 6.6 6.3-8.2 g/dl ALB 4.0 3.5-5.0 g/dl GLOB 2.6 1.3-3.2 g/dL AGRATIO 1.5 1.1-1.8 ALP 67 38-126 U/L H-Glycohemoglobin A1C Reviewed date:06/16/2024 09:14:56 AM Interpretation:4.9 Performing Lab: Notes/Report: HGBA1C 4.9 4.0-6.0 % < 6% Non-Diabetic Level < 7% Controlled Diabetic Level > 8% Poorly Controlled Diabetic Level H-VITAMIN B12 Reviewed date:06/16/2024 09:14:56 AM Interpretation:287 Performing Lab: Notes/Report: VITB12 287 239-931 pg/mL H-Ferritin Reviewed date:06/16/2024 09:14:56 AM Interpretation:9.63 Performing Lab: Notes/Report: VALERIE 9.63 6.24-137 ng/ml H-Iron Reviewed date:06/16/2024 09:14:56 AM Interpretation:44 Performing Lab: Notes/Report: FE 44 37-170 ug/dL P-Sed Rate (ESR) Reviewed date:08/26/2024 02:10:10 PM Interpretation:8 Performing Lab: Notes/Report: Test performed by [facility] [address] [place] [address] , [address], [place] [address] Phoenix Schwarz MD, Central Office Installer CLIA: [id number] Erythrocyte Sedimentation Rate (ESR), Automated 8 <26 mm/hr H-CBC Reviewed date:06/16/2024 09:14:56 AM Interpretation:hgb 11, hct 35.5, mcv 74.3, mch 23.0, mchc 31, mpv 10.5 Performing Lab: Notes/Report: WBC 6.3 4.8-10.8 K/mm3 RBC 4.78 4.20-5.40 M/mm3 HGB 11.0 12.2-16.2 g/dL HCT 35.5 37.0-47.0 % MCV 74.3 81-99 fl MCH 23.0 27.0-31.2 pg MCHC 31.0 31.8-35.4 g/dL RDW 15.8 11.5-17.5 % PLT 268 142-424 K/mm3 MPV 10.5 7.4-10.4 fl NE% 61.2 37.0-80.0 % LY% 29.0 10-50 % MO% 6.0 1.7-9.3 % EO% 2.7 0.1-12.0 % BA% 0.8 0.1-2.0 % NE# 3.9 1.8-7.8 K/mm3 LY# 1.8 0.7-4.5 K/mm3 MO# 0.4 0.1-1.0 K/mm3 EO# 0.2 0.0-0.4 K/mm3 BA# 0.1 0-0.2 K/mm3 H-TSH Reviewed date:06/16/2024 09:14:56 AM Interpretation:Normal Performing Lab: Notes/Report: TSH 1.95 0.465-4.68 uIU/mL CT scan : Temporal bones w/ and w/o IV contrast Reviewed date:05/26/2024 02:38:23 PM Interpretation:not performed due to insurance Performing Lab: Notes/Report: not performed due to insurance Reason For Referral Reason History of mastoidit is; Recent myringotomy Diagnosis 1 Mastoiditis of left side (H70.92) Diagnosis 2 Left chronic otitis media (H66.92) Referral Organization [facility] Referring Provider First Name Nicci Referring Provider Last Name Samuel Referring Provider 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 Caraballo RIN. She has had a recent myringotomy and tube placement and is having pain., Christianne Christie 11/27/2023 3:14:12 PM > faxed referral Referral Priority Routine Medications Medication SIG (Take, Route, Fr equency, Duration) Notes Start Date End Date Status Cefdinir 300 MG 1 cap(s) Orally Two times a day; Duration: 10 days 11/18/2024 Active Immunizations Vaccine Route Administration Date Status Comme nts COVID 19 Nathalia Unknown 09/29/2020 Administered Fluzone Quad (6months&older) IM Intramuscular 03/14/2022 Administered Fluzone Quad (6months&older) IM Intramuscular 04/03/2023 Pending Tetanus Tdap-Adacel (over 7yrs) IM Intramuscular 12/06/2021 Administered Tetanus Tdap-Adacel (over 7yrs) IM Intramuscular 04/03/2023 Pending Problems Problem Type SNOMED Code ICD Code Onset Dates Problem Status W/U Status Risk Notes Problem Gastroesophageal reflux disease (811201439) GERD (gastroesophageal reflux disease) (K21.9) Active confirmed Problem Hypertension (25827204) HTN (hypertension) (I10) Active confirmed Problem Hyperlipidemia (44624909) Hyperlipidemia (E78.5) Active confirmed Problem Vitamin D deficiency (97923628) Vitamin D deficiency (E55.9) Active confirmed Problem Paresthesia (81258261) Paresthesia (R20.2) Active confirmed Problem Mixed anxiety and depressive disorder (648536752) Depression with anxiety (F41.8) Active confirmed Problem Hearing loss (99764615) Hearing loss (H91.90) Active confirmed Problem Amenorrhea (24045584) Amenorrhea (N91.2) Active confirmed Problem Body mass index 40+ - severely obese (467439578) BMI 45.0-49.9, adult (Z68.42) Active confirmed Problem Migraine (95361884) Migraine wit hout status migrainosus, not intractable, unspecified migraine type (G43.909) Active confirmed Problem Anemia (519459081) Anemia, unspecified type (D64.9) Active confirmed Problem Morbid obesity (539330292) Obesity, morbid, BMI 40.0-49.9 (E66.01) Active confirmed Problem Insulin resistance (660449102) Insulin resistance (E88.81) Active confirmed Problem Chronic serous otitis media (11225557) Left chronic serous otitis media (H65.22) Active confirmed Problem Refractory migraine without aura (018687788) Intractable migraine without aura and without status migrainosus (G43.019) Active confirmed Problem Anxiety depression (016237325) Anxiety with depression (F41.8) Active confirmed Problem Major depression, single episode (59501317) Major depressive disorder with current active episode, unspecified depression episode severity, unspecified whether recurrent (F32.9) Active confirmed Vital Signs Heart Rate 77 /min 11/18/2024 Blood pressure diastolic 82 mm Hg 11/18/2024 Height 69.75 in 11/18/2024 Blood pressure systolic 130 mm Hg 11/18/2024 Weight 336 lbs 11/18/2024 BMI 48.55 kg/m2 11/18/2024 Encounters Encounter Location Date Provider Diagnosis [facility] [address] [facility] [address] [place] [id number] 12/16/2023 Sulma Amador Muscle strain T14.8X XA [facility] [address] [facility] [address] [place] [id number] 01/07/2024 Nicci Crowdy Depression with anxi ety F41.8 [facility] [address] [place], [place] [id number] 01/22/2024 Nicci Crowdy Acute pharyngitis du e to other specified organisms J02.8 and Other specified bacterial agents as the cause of diseases classified elsewhere B96.89 [facility] [address] [place], [place] [id number] 02/10/2024 Sulma Amador Bronchitis J40 [facility] [address] [place], [place] [id number] 03/17/2024 Nicci Crowdy Acute URI J06.9 [facility] [address] [place], [place] [id number] 06/23/2024 Nicci Crowdy Vitamin B12 deficien cy E53.8 [facility] [address] [place], [place] [id number] 07/01/2024 Nicci Crowdy Acute URI J06.9 [facility] [address] [place], [place] [id number] 08/19/2024 Nicci Crowdy Polyarthralgia M25.5 0 and Obesity, morbid, BMI 40.0-49.9 E66.01 [facility] [address] [place], [place] [id number] 08/24/2024 Nicci Crowdy [facility] [address] [place], [place] [id number] 11/18/2024 Nicci Crowdy History of mastoidit is Z86.69 [facility] [address] [place], [place] [id number] 11/19/2023 Nicci Crowdy [facility] [address] [place], [place] [id number] 12/08/2023 Nicci Crowdy [facility] [address] [place] [id number] 12/15/2023 Sulma Amador [facility] [address] [place], [place] [id number] 12/17/2023 Cris Bloom [facility] [address] [place] [id number] 01/02/2024 Nicci Crowdy [facility] [address] [place], [place] [id number] 01/12/2024 Nicci Crowdy [facility] [address] [place] [id number] 02/04/2024 Nicci Crowdy [facility] [address] [place], [place] [id number] 03/03/2024 Nicci Crowdy [facility] [address] [place], [place] [id number] 03/04/2024 Nicci Crowdy [facility] [address] [place], [place] [id number] 05/26/2024 Nicci Crowdy History of mastoidit is Z86.69 [facility] [address] [place], [place] [id number] 06/02/2024 Nicci Crowdy [facility] [address] [place], [place] [id number] 06/11/2024 Nicci Crowdy HTN (hypertension) I 10 ; Iron deficiency E61.1 ; Vitamin D deficiency E55.9 ; Diabetes mellitus screening Z13.1 ; Anemia, unspecified type D64.9 ; Thyroid disorder screen Z13.29 ; Hyperlipidemia E78.5 and Vitamin B12 deficiency E53.8 [facility] [address] [place], [place] [id number] 06/16/2024 Nicci Crowdy [facility] [address] [place], [place] [id number] 06/16/2024 Nicci Crowdy [facility] [address] [place], [place] [id number] 07/05/2024 Nicci Crowdy [facility] [address] [place], [place] [id number] 08/26/2024 Nicci Crowdy [facility] [address] [id number] 10/01/2024 Nicci Baker [facility] [address] [place] [id number] 10/06/2024 Nicci Baker Assessments Encounter Date Diagnosis (ICD Code) Assessment Notes Treatment Notes Treatment Clinical Notes Section Notes 12/16/2023 Muscle strain (ICD-10 - T14.8XXA) ice/heat application prn; meds with food; use NSAIDS sparingly; stretches prn; will not Rx steriods due to present infection with PIC line for daily IV ABX 01/07/2024 Depression with anxiety (ICD-10 - F41.8) 01/22/2024 Other specified bacterial agents as the cause of diseases classified elsewhere (ICD-10 - B96.89) 01/22/2024 Acute pharyngitis due to other specified organisms (ICD-10 - J02.8) 02/10/2024 Bronchitis (ICD-10 - J40) fluids, rest, supportive measures for fever/symptom relief; will try Mucinex DM and airsupra inhaler 03/17/2024 Acute URI (ICD-10 - J06.9) Has bromfed at home. 05/26/2024 History of mastoiditis (ICD-10 - Z86.69) 06/11/2024 HTN (hypertension) (ICD-10 - I10) 06/23/2024 Vitamin B12 deficiency (ICD-10 - E53.8) 07/01/2024 Acute URI (ICD-10 - J06.9) 08/19/2024 Polyarthralgia (ICD-10 - M25.50) 08/19/2024 Obesity, morbid, BMI 40.0-49.9 (ICD-10 - E66.01) 11/18/2024 History of mastoiditis (ICD-10 - Z86.69) Patient is going to try to get in to see ENT next week at [facility]. She cannot see Dr. Fabian for 3 weeks. 06/11/2024 Iron deficiency (ICD-10 - E61.1) 06/11/2024 Vitamin D deficiency (ICD-10 - E55.9) 06/11/2024 Diabetes mellitus screening (ICD-10 - Z13.1) 06/11/2024 Anemia, unspecified type (ICD-10 - D64.9) 06/11/2024 Thyroid disorder screen (ICD-10 - Z13.29) 06/11/2024 Hyperlipidemia (ICD-10 - E78.5) 06/11/2024 Vitamin B12 deficiency (ICD-10 - E53.8) 12/16/2023 Other sees infectious disease provider weekly Plan Of Treatment Next Appt Details Provider Name:Nicci teixeira, 11/18/2024 04:00:00 PM, [address], [place], [place], [id number], Insurance Providers Payer Name Payer Address Payer Phone Subscriber Number Group Number Insured Name Patient Relationship to Insured Coverage Start Date Coverage End Date [employer] [address] [place] [address] [id number] Winter Self - patient is the insured Medications Administered Medication Instructions Date of Administration Dosage Notes B-12 06/23/2024 1 mL Medical (General) History Medical History History ICD Code Hypertension Insulin Resistance COVID 19- 03/23/2021 chronic OM left eAR left mastoiditis Surgical History Surgery Date(Month/Year) [facility] Teeth Extractions 07/2019 01/15/2022 cholecystectomy 03/04/2022 C- Section 05/26/2023 left myringotomy tube placement 11/18/2023 Hospitalization History Reason Date(Month/Year) 05/2023 01/2022
[2024-11-18 17:08] LABS: Hematocrit 36.8 % (37.0-47.0); Hemoglobin 11.5 g/dL (12.2-16.2); Immature Granulocytes % 0.4 %; Mean Corpuscular HGB Conc 31.3 g/dL (31.8-35.4); Mean Corpuscular Hemoglobin 23.3 pg (27.0-31.2); Mean Corpuscular Volume 74.5 fl (81-99); Nucleated Red Blood Cells % 0 %; Platelet Count 252 K/mm3 (142-424); Red Blood Count 4.94 M/mm3 (4.20-5.40); Red Cell Distribution Width-SD 43.8 fL; White Blood Count 7.3 K/mm3 (4.8-10.8)
[2024-11-18 18:40] LABS: Hepatitis C Ab Qual. W/ RFX NEGATIVE (Negative)
[2024-11-19 05:09] LABS: Hepatitis B Surface Antigen Negative (Negative)
[2024-11-19 08:17] LABS: Rubella Antibodies, IgG 1.12 index (Immune >0.99)
[2024-11-19 08:53] LABS: RPR W/RFX Titers Nonreactive (Nonreactive)
== END 2024-11-18 23:59 | disposition home or self-care (01) ==
LOC: LAB 16:37
PROVIDERS: PCP Physician Assistant; Visit Provider Obstetrics & Gynecology
DX: O99.340 Other mental disorders complicating pregnancy, unspecified trimester (principal); F41.9 Anxiety disorder, unspecified; O21.9 Vomiting of pregnancy, unspecified
CPT/HCPCS: 36415; 85025; 86592; 86762; 86803; 86850; 87340; 87389

== ENCOUNTER 2024-12-21 10:45 | Outpatient (CLI) | payer BC, SELFPAY ==
--- OUTSIDE RECORDS SUMMARY | 2024-08-19 11:15 | XMS_ITS ---
Author Organization [facility] Address [address] [facility] [address] [place] [phone] Care Team Providers Care Manager Food Beverage Name Role Phone Iraj Bakera Primary Care [...] Interpretation:Negative Performing Lab: Notes/Report: Test performed by [employer] [facility] [employer] [address], [address], [place] [address] Phoenix Schwarz MD, Freight Car Cleaner CLIA: [id number] B burgdorferi (Lyme Disease) IgG Negative Negative B burgdorferi (Lyme Disease) IgM Negative Negative P-Comprehensive Metabolic Pa gene (CMP) Reviewed date:08/26/2024 02:10:10 PM Interpretation:Glu 101 Performing Lab: Notes/Report: Test performed by [employer] [facility] , [address], [place] [address] Phoenix Schwarz MD, Freight Car Cleaner CLIA: [id number] Sodium 141 135-145 mmol/L Potassium 4.1 3.5-5.3 [...] mg/dL A/G Ratio 1.5 1.1-2.5 P-Arthritis Panel, [facility] Reviewed date:08/26/2024 02:10:10 PM Interpretation:CRP 0.81 Performing Lab: Notes/Report: Test performed by [employer] [address] [facility] , [address], [place] [address] Phoenix Schwarz MD, Freight Car Cleaner CLIA: [id number] Rheumatoid Factor <10 <14.1 IU/mL C-Reactive Protein (CRP) 0.81 <0.50 mg/dL Antinuclear Antibodies (EVER) Screen, Reflex EVER 9 Panel Negative Negative This test is performed by Multiplex Bead Immunoassay methodology. Antinuclear Antibodies (EVER) Result Note SEE COMMENT For positive Autoantibodies, please refer to the interpretive chart here: [email or web address]://www.[email or web address] [email or web address] [email or web address] [email or web address] [email or web address]/w p-content/uploads/EVER-Inter pretive-Chart.pdf CCP Antibodies <0.5 <0.5-3.0 U/mL [...] Problem Status W/U Status Risk Notes Problem Obesity, morbid, BMI 40.0-49.9 (E66.01) Active confirmed Vital Signs Blood pressure systolic 130 mm Hg 08/20/19 25 Blood pressure diastolic 80 mm Hg 025 Heart Rate 100 /min 08/19/2024 Height 69.75 in 08/19/2024 Weight 335 lbs 08/19/2024 BMI 48.41 kg/m2 08/19/2024 Encounters Encounter Location Date Provider Diagnosis [facility] [address] [place] [id number] 08/19/2024 Nicci Baker Polyarthralgia M25.5 0 and [...] Notes * Karo COLONDOB:2000 (24 yo F)Acc No.[id number]:08/19/2024 Progress Notes Patient: Karo BARRON Provider: MONA He :2000 A ge:23 Y S ex:Female Date:08/19/2024 Phone: Address:[address] [place] [address] [facility] Subjective: * Chief Complaints: * 1 . [...] Flu Test- Nasal Swab, Modifiers: QW , 45788 CBC WITH AUTO DIFF, 71883 VENIPUNCT, ROUTINE*, 3075F SYST BP GE 130 - 139MM HG, 3079F DIAST BP 80-89 MM HG * Follow Up: v ia phone to report test results * Images: Billing Information: * Visit Code: 64536 Office Visit, Est Pt., Level 3. * Procedure Codes: 46292 Flu Test- Nasal Swab. Modifiers: QW 77602 CBC WITH AUTO DIFF. 90366 VENIPUNCT, ROUTINE*. 3075F SYST BP GE 130 - 139MM HG. 3079F DIAST BP 80-89 MM HG. * Electronic signature of MONA Jolley on 12/22/2024 at 10:11 AM EDT Sign off status: Pending * Provider: MONA He Date: 0 08/19/2024 Generated for Shantanu wong/Alondra/Donnie on: 0 12/22/2024 10:11 AM EDT History and Physical Notes * [...]
--- OUTSIDE RECORDS SUMMARY | 2024-08-24 04:55 | XMS_ITS ---
Author Organization [facility] Address [address] [facility] [address] [place] [phone] Care Team Providers Care Forklift Picker Name Role Phone Nicci Baker Primary Care Provider [phone] REASON FOR VISIT Lab Draw Encounters Encounter Location Date Provider Diagnosis [facility] [address] [place] [id number] 08/24/2024 Nicci Baker Plan Of Treatment No Information Progress Notes * Karo COLONDOB:2000 (24 yo F)Acc No.[id number]:08/24/2024 Patient: Shoaib BARRONssica Provider: MONA He :2000 A ge:23 Y S ex:Female Date:08/24/2024 Phone: Address:[place] Subjective: * Chief Complaints: * 1 . Lab Draw. * Medical History: Objective: * Vitals: Assessment: Plan: * Treatment: * Images: Billing Information: * Visit Code: * Procedure Codes: * Electronic signature of MONA Jolley on 12/22/2024 at 10:11 AM EDT Sign off status: Pending * Provider: MONA He Date: 0 08/24/2024 Generated for Shantanu wong/Alondra/eTransmitting on: 0 12/22/2024 10:11 AM EDT
--- OUTSIDE RECORDS SUMMARY | 2024-11-18 12:00 | XMS_ITS ---
Author Organization [facility] Address 1210 [facility] [address] [place] [id number] Care Team Providers Care Manager Retail Sales Name Role Phone Nicci Baker Primary Care [...] Location Date Provider Diagnosis [facility] [address] [place] [phone] 11/18/2024 Nicci Baker History of mastoidit is Z86.69 Assessments Encounter Date Diagnosis (ICD Code) Assessment Notes Treatment Notes Treatment Clinical Notes Section Notes 11/18/2024 History of mastoiditis (ICD-10 - Z86.69) Patient is going to try to get in to see ENT next week at [facility]. She cannot see Dr. Fabian for 3 weeks. Plan Of Treatment Medication Medication Name Sig Start Date Stop Date Notes Cefdinir 300 MG 1 cap(s) Orally Two times a day; Duration: 10 days 11/18/2024 Treatment Notes Assessment Notes History of mastoiditis Patient is going to try to get in to see ENT next week at [facility]. She cannot see Dr. Fabian for 3 weeks. Next Appt Details Follow Up: with ENT, Reason: Progress Notes * Karo COLONDOB:2000 (24 yo F)Acc No.[id number]:11/18/2024 Progress Notes Patient: Karo BARRON Provider: MONA He :2000 A ge:23 Y S ex:Female Date:11/18/2024 Phone: Address:[address] [place], [place] [address], [id number] Subjective: * Chief Complaints: * 1 . [...] < 90MM HG * Follow Up: w [facility] ENT * Images: Billing Information: * Visit Code: 83478 Office Visit, Est Pt., Level 3. * [...] 0 11/18/2024 Generated for Shantanu wong/Alondra/eTsandysmitting on: 12/22/2024 10:11 AM EDT History and Physical [...]
--- OUTSIDE RECORDS SUMMARY | 2024-12-22 10:11 | XMS_ITS | Clinical Summary ---
Author Organization [facility] Address [address] [place] [address] Phone Care Team Providers Care Residential Care Facility Manager Name Role Phone Jasmeet SANTIAGO, Bhavana Maynard Unavailable Conditions or Problems Problem Name Problem Code Onset Date Status Entry Date Provider Comment Standard Description Annotate Ear pain, left 7777700485 (SNOMED CT) 06/01 Active 06/01 Cesar Argueta MD Otalgia of left ear Acute mastoiditis, left 232767104 (SNOMED CT) 06/01 Active 06/01 Cesar Argueta MD Acute mastoiditis Screening for HIV 156628544 (SNOMED CT) 12/17 Active 12/17 Gorge Handy Procedure carried out on subject Acute recurrent suppurative otitis media, left 240941253 (SNOMED CT) 12/04 Active 12/04 Sasha Malik Recurrent acute suppurative otitis media Acute recurrent serous otitis media, left 120497084 (SNOMED CT) 12/03 Active 12/03 Sasha Malik Acute non-suppurat gokul serous otitis media Serratia marcescens infection B96.89 (ICD-10-CM) 12/03 Active 12/03 Cesar Argueta MD Other specified bacterial agents as the cause of diseases classified elsewhere Facial swelling 590884146 (SNOMED CT) 12/03 Active 12/03 Aida Argueta Facial swelling Recurrent otitis media (ROM) 8187238357446 104 (SNOMED CT) 12/03 Inactive 12/03 Aida Argueta Otitis media of right ear Chronic mastoiditis, left 51426589 (SNOMED CT) 12/03 Active 12/03 Lydia Medrano Chronic mastoiditis Medications Medication Instructions Start Date Stop Date Generic Name NDC Provider ceftriaxone recon kikanoemi Rocephin 2gm IV Q 24hrs/ OPAT 06/01 ceftriaxone recon katy espana recon solnoemi Rocephin 2gm IV Q 24hrs INPAT 06/01 ceftriaxone recon katy Gonzales METRONIDAZOLE 500 MG TABS Take 1 tablet by mouth three times a day 06/01 metronidazole 44434183994 Cesar Argueta MD WEGOVY 0.5 MG/0.5ML SOAJ 06/01 semaglutide (weight loss) 66499101538 Lynn Jarvis HYDROCHLOROTHIAZIDE 12.5 MG TABS 06/01 hydrochlorothiazide 43548356205 [facility] VENLAFAXINE HCL 37.5 MG TABS 06/01 venlafaxine 23323499902 [facility] PRISTIQ 100 MG [id number] once a day desvenlafaxine succinate 05002455783 [facility] ZOSYN 4-0.5 GM/100ML SOLN Q 8 hrs/OPAT 01/26 piperacillin-tazoba ctam-dextrs 80491054148 Bhavana Alamo RN WEGOVY 0.5 MG/0.5ML SOAJ 06/01 semaglutide (weight loss) 75663201936 Farrah Gunjan VENLAFAXINE HCL 37.5 MG TABS 06/01 venlafaxine 62093787574 Farrah Gunjan HYDROCHLOROTHIAZIDE 12.5 MG TABS 11/16 hydrochlorothiazide 15285515918 Farrah Gunjan Medications Administered No information available. [...] Procedures Code Procedure Name Date Entry Date CPT-62747 CMP [id number] CBC with Differential 2024 CPT-72003 C- reactive protein CPT-57236 Sedimentation Rate (ESR) 202 09/17/27 CPT-93527 CMP [id number] CBC with Differential 2024 CPT-26930 C- reactive protein CPT-13841 Sedimentation Rate (ESR) 09/16/20 CPT-sl STAT Labs [id number] CBC with Differential 2024 CPT-15192 CMP CPT-37429 C- reactive protein CPT-00233 Sedimentation Rate (ESR) 09/17/15 CPT- stat weekly Stat Weekly Labs CPT-45662 X-Ray, Chest (PICC Placement only) 06/02 CPT-25006 CMP [id number] CBC with Differential 2024 CPT-07657 C- reactive protein CPT-81362 Sedimentation Rate (ESR) 09/16/13 CPT-sl STAT Labs CPT-sl STAT Labs CPT-sl STAT Labs CPT-04360 CMP [id number] CBC with Differential 2023 CPT-48477 C- reactive protein CPT-11697 Sedimentation Rate (ESR) 08/24/14 CPT-sl STAT Labs CPT-sl STAT Labs CPT-28757 CMP [id number] CBC with Differential 2023 CPT-59350 C- reactive protein CPT-53268 Sedimentation Rate (ESR) 202 08/23/24 CPT- stat weekly Stat Weekly Labs CPT-sl STAT Labs CPT-sl STAT Labs CPT-10883 CMP [id number] CBC with Differential 2023 CPT-40839 C- reactive protein CPT-03602 Sedimentation Rate (ESR) 202 08/23/17 Vital Signs [...]
--- OUTSIDE RECORDS SUMMARY | 2024-12-22 10:11 | XMS_ITS | Clinical Summary ---
Author Organization [facility] Address [address] [place] [address] Care Team Providers Care Desktop Support Associate Name Role Phone Nicci Baker Primary Care Provider [phone] Social History Tobacco Use Types Packs/Day Years Used Date Smoking Tobacco: Never Assessed Comments Unknown Sex and Gender Information Value Date Recorded Sex Assigned at Not on file Legal Sex Female 11:08 AM EST Gender Identity Not on file Sexual Orientation Not on file Plan of Treatment Health Maintenance Due Date Last Done Comments Annual Gynecologic Pelvic an d Breast Exam 2000 HPV VACCINES (1 - 3-dose series) 11/26/2015 ANNUAL PHYSICAL 06/06/2021 HEPATITIS C SCREENING 06/06/2021 COVID-19 Vaccine (2 - 2023-2 5 season) 2024 09/29/2020 INFLUENZA VACCINE 02/16/2025 TDAP/TD VACCINES (2 - Td or Tdap) 12/07/2031 022 MENINGOCOCCAL B VACCINE Aged Out No l onger eligible based on patient's age to complete this topic Pneumococcal Vaccine 0-49 Aged Out No longer eligible based on patient's age to complete this topic Insurance [place] [id number] [facility] Care Teams Desktop Support Associate Relationship Specialty Start Date End Date Nicci Baker PA [address] [place] [address] PCP - General Physician 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
--- OUTSIDE RECORDS SUMMARY | 2024-12-22 10:12 | XMS_ITS | Patient Health Record ---
[facility] Address [address] [facility] [address] [place] [id number] Care Team Providers Care Financial Accounting Manager Name Role Phone Samuel Nicci Primary Care Provider Sulma Amador Unavailable [phone] Allergies No Known Allergies Results Component Value [...] Interpretation:Negative Performing Lab: Notes/Report: Test performed by [facility] [address] [place], [place] [address] , [address], [place] [address] Phoenix Schwarz MD, Bus And Sys Integration Senior Manager CLIA: [id number] B burgdorferi (Lyme Disease) IgG Negative Negative B burgdorferi (Lyme Disease) IgM Negative Negative P-Comprehensive Metabolic Pa gene (CMP) Reviewed date:08/26/2024 02:10:10 PM Interpretation:Glu 101 Performing Lab: Notes/Report: Test performed by [facility] [address] [place] [address] , [address], [place] [address] Phoenix Schwarz MD, Bus And Sys Integration Senior Manager CLIA: [id number] Sodium 141 135-145 mmol/L Potassium 4.1 3.5-5.3 [...] mg/dL A/G Ratio 1.5 1.1-2.5 P-Arthritis Panel, [employer] Reviewed date:08/26/2024 02:10:10 PM Interpretation:CRP 0.81 Performing Lab: Notes/Report: Test performed by [facility] [address] [place] [address] , [address], [place] [address] Phoenix Schwarz MD, Bus And Sys Integration Senior Manager CLIA: [id number] Rheumatoid Factor <10 <14.1 IU/mL C-Reactive Protein (CRP) 0.81 <0.50 mg/dL Antinuclear Antibodies (EVER) Screen, Reflex EVER 9 Panel Negative Negative This test is performed by Multiplex Bead Immunoassay methodology. Antinuclear Antibodies (EVER) Result Note SEE COMMENT For positive Autoantibodies, please refer to the interpretive chart here: [email or web address] CCP Antibodies <0.5 <0.5-3.0 U/mL Erythrocyte Sedimentation Rate (ESR), Automated Specimen received beyond stability.. Test cannot be performed. Acceptable stability from collection is [[address] scan : Temporal bones w/ and w/o IV contrast Reviewed date:05/26/2024 02:38:23 PM Interpretation:not performed due to insurance Performing Lab: Notes/Report: not performed due to insurance P-Sed Rate (ESR) Reviewed date:08/26/2024 02:10:10 PM Interpretation:8 Performing Lab: Notes/Report: Test performed by [facility] [employer] [address] [place] [address] , [address], [place] [address] Phoenix Schwarz MD, Bus And Sys Integration Senior Manager CLIA: [id number] Erythrocyte Sedimentation Rate (ESR), Automated 8 <26 mm/hr CBC Fingerstick (in house) Reviewed date:07/01/2024 05:06:45 [...] - 38 plat 276 100 - 400 Rapid Strep- Inhouse Reviewed [...] - 38 plat 265 100 - 400 Rapid Strep- Inhouse Reviewed date:01/22/2024 09:29:34 AM Interpretation:Negative Performing Lab: Notes/Report: Negative strep test neg TEN-Upper Respiratory PCR Reviewed date:02/13/2024 08:50:15 AM Interpretation:Abnormal; Rhinovirus Performing Lab: Notes/Report: Abnormal; Rhinovirus CBC Fingerstick (in house) Reviewed date:02/10/2024 01:31:10 [...] - 38 plat 272 100 - 400 CBC Fingerstick (in house) [...] - 38 plat 149 100 - 400 H-TSH Reviewed date:06/16/2024 09:14:56 AM Interpretation:Normal Performing Lab: Notes/Report: TSH 1.95 0.465-4.68 uIU/mL H-CBC Reviewed date:06/16/2024 09:14:56 AM Interpretation:hgb 11, [...] 0.2 0.0-0.4 K/mm3 BA# 0.1 0-0.2 K/mm3 H-VITAMIN D Reviewed date:06/16/2024 09:14:56 AM Interpretation:16.4 [...] Performing Lab: Notes/Report: FE 44 37-170 ug/dL Reason For Referral No Information Medications Medication SIG (Take, Route, Fr equency, [...] Status Risk Notes Problem Gastroesophageal reflux disease (677783887) GERD (gastroesophageal reflux disease) (K21.9) Active confirmed Problem Hypertension (53073464) HTN (hypertension) (I10) Active confirmed Problem Hyperlipidemia (23010093) Hyperlipidemia (E78.5) Active confirmed Problem Vitamin D deficiency (28088439) Vitamin D deficiency (E55.9) Active confirmed Problem Paresthesia (60889944) Paresthesia (R20.2) Active confirmed Problem Mixed anxiety and depressive disorder (629668842) Depression with anxiety (F41.8) Active confirmed Problem Hearing loss (39942256) Hearing loss (H91.90) Active confirmed Problem Amenorrhea (13565875) Amenorrhea (N91.2) Active confirmed Problem Body mass index 40+ - severely obese (493715846) BMI 45.0-49.9, adult (Z68.42) Active confirmed Problem Migraine (90286822) Migraine wit hout status migrainosus, not intractable, unspecified migraine type (G43.909) Active confirmed Problem Anemia (293398643) Anemia, unspecified type (D64.9) Active confirmed Problem Morbid obesity (819252351) Obesity, morbid, BMI 40.0-49.9 (E66.01) Active confirmed Problem Insulin resistance (780873445) Insulin resistance (E88.81) Active confirmed Problem Chronic serous otitis media (10372492) Left chronic serous otitis media (H65.22) Active confirmed Problem Refractory migraine without aura (801283648) Intractable migraine without aura and without status migrainosus (G43.019) Active confirmed Problem Anxiety depression (098098349) Anxiety with depression (F41.8) Active confirmed Problem Major depression, single episode (04407486) Major depressive disorder with current active episode, unspecified depression episode severity, unspecified whether recurrent (F32.9) Active confirmed Vital Signs Heart Rate 77 /min 11/18/2024 Blood pressure diastolic 82 mm Hg 11/18/2024 Height 69.75 in 11/18/2024 Blood pressure systolic 130 mm Hg 11/18/2024 Weight 336 lbs 11/18/2024 BMI 48.55 kg/m2 11/18/2024 Encounters Encounter Location Date Provider Diagnosis [facility] [address] [facility] [address] [place], [place] [id number] 01/07/2024 Nicci Samuel Depression with anxi ety F41.8 [facility] [address] [place], [place] [id number] 01/22/2024 Nicci Samuel Acute pharyngitis du e to other specified organisms J02.8 and Other specified bacterial agents as the cause of diseases classified elsewhere B96.89 [facility] [address] [place], [place] [id number] 02/10/2024 Sulma Amador Bronchitis J40 [facility] [address] [place], [place] [id number] 03/17/2024 Nicci Samuel Acute URI J06.9 [facility] [address] [facility] [address] [place], [place] [id number] 06/23/2024 Nicci Samuel Vitamin B12 deficien cy E53.8 [facility] [address] [place], [place] [id number] 07/01/2024 Nicci Crowdy Acute URI J06.9 [facility] [address] [place], [place] [id number] 08/19/2024 Nicci Crowdy Polyarthralgia M25.5 0 and Obesity, morbid, BMI 40.0-49.9 E66.01 [facility] [address] [place], [place] [id number] 08/24/2024 Nicci Crowdy [facility] [address] [place], [place] [id number] 11/18/2024 Nicci Crowdy History of mastoidit is Z86.69 [facility] [address] [place] [id number] 01/02/2024 Nicci Crowdy [facility] [address] [place] [id number] 01/12/2024 Nicci Crowdy [facility] [address] [place] [id number] 02/04/2024 Nicci Crowdy [facility] [address] [place] [id number] 03/03/2024 Nicci Crowdy [facility] [address] [place] [id number] 03/04/2024 Nicci Crowdy [facility] [address] [place] [id number] 05/26/2024 Nicci Crowdy History of mastoidit is Z86.69 [facility] [address] [place], [place] [id number] 06/02/2024 Nicci Crowdy [facility] [address] [place] [id number] 06/11/2024 Nicci Crowdy HTN (hypertension) I 10 ; Iron deficiency E61.1 ; Vitamin D deficiency E55.9 ; Diabetes mellitus screening Z13.1 ; Anemia, unspecified type D64.9 ; Thyroid disorder screen Z13.29 ; Hyperlipidemia E78.5 and Vitamin B12 deficiency E53.8 [facility] [address] [place] [id number] 06/16/2024 Nicci Crowdy [facility] [address] [place] [id number] 06/16/2024 Nicci Crowdy [facility] [address] [place] [id number] 07/05/2024 Nicci Crowdy [facility] [address] [place] [id number] 08/26/2024 Nicci Crowdy [facility] [address] [place] [id number] 10/01/2024 Nicci Crowdy [facility] [address] [place], [place] [id number] 10/06/2024 Nicci Johanndy Assessments Encounter Date Diagnosis (ICD Code) Assessment Notes Treatment Notes Treatment Clinical Notes Section Notes 01/07/2024 Depression with anxiety (ICD-10 - F41.8) [...] in to see ENT next week at [facility]. She cannot see Dr. Fabian for 3 weeks. 06/11/2024 Iron deficiency (ICD-10 - E61.1) 06/11/2024 Vitamin D deficiency (ICD-10 - E55.9) 06/11/2024 Diabetes mellitus screening (ICD-10 - Z13.1) 06/11/2024 Anemia, unspecified type (ICD-10 - D64.9) 06/11/2024 Thyroid disorder screen (ICD-10 - Z13.29) 06/11/2024 Hyperlipidemia (ICD-10 - E78.5) 06/11/2024 Vitamin B12 deficiency (ICD-10 - E53.8) Plan Of Treatment No Information Insurance Providers Payer Name Payer Address Payer Phone Subscriber Number Group Number Insured Name Patient Relationship to Insured Coverage Start Date Coverage End Date [facility] [address] [place] [address] [id number] Karo Colon Self - patient is the insured Medications Administered Medication Instructions Date of Administration Dosage Notes B-12 06/23/2024 1 mL Medical (General) History Medical History History ICD Code Hypertension Insulin Resistance COVID 19- 03/23/2021 chronic OM left eAR left mastoiditis Surgical History Surgery Date(Month/Year) [place] Teeth Extractions 07/2019 01/15/2022 cholecystectomy 03/04/2022 C- Section 05/26/2023 left myringotomy tube placement 11/18/2023 Hospitalization History Reason Date(Month/Year) 05/2023 01/2022
== END 2024-12-21 23:59 | disposition home or self-care (01) ==
LOC: LAB.DROPOF 12-22 10:08
PROVIDERS: PCP Obstetrics & Gynecology; Visit Provider Obstetrics & Gynecology
DX: O09.299 Supervision of pregnancy with other poor reproductive or obstetric history, unspecified trimester (principal); O99.210 Obesity complicating pregnancy, unspecified trimester; O99.340 Other mental disorders complicating pregnancy, unspecified trimester; F41.9 Anxiety disorder, unspecified
CPT/HCPCS: 87086

== ENCOUNTER 2025-01-24 09:47 | Outpatient (CLI) | payer BC, SELFPAY ==
--- OUTSIDE RECORDS SUMMARY | 2025-01-24 09:52 | XMS_ITS | Clinical Summary ---
Author Organization [facility] Address [address] [place] [address] Phone Care Team Providers Care Tong Carrier Name Role Phone Jasmeet SANTIAGO, Bhavana Maynard Unavailable Conditions or Problems Problem Name Problem Code Onset Date Status Entry Date Provider Comment Standard Description Annotate Ear pain, left 6756670053 (SNOMED CT) 06/01 Active 06/01 Cesar Argueta MD Otalgia of left ear Acute mastoiditis, left 665482234 (SNOMED CT) 06/01 Active 06/01 Cesar Argueta MD Acute mastoiditis Screening for HIV 489471364 (SNOMED CT) 12/17 Active 12/17 Gorge Handy Procedure carried out on subject Acute recurrent suppurative otitis media, left 404625432 (SNOMED CT) 12/04 Active 12/04 Sasha Malik Recurrent acute suppurative otitis media Acute recurrent serous otitis media, left 188833100 (SNOMED CT) 12/03 Active 12/03 Sasha Malik Acute non-suppurat gokul serous otitis media Serratia marcescens infection B96.89 (ICD-10-CM) 12/03 Active 12/03 Cesar Argueta MD Other specified bacterial agents as the cause of diseases classified elsewhere Facial swelling 795613488 (SNOMED CT) 12/03 Active 12/03 Aida Argueta Facial swelling Recurrent otitis media (ROM) 5799327016780 104 (SNOMED CT) 12/03 Inactive 12/03 Aida Argueta Otitis media of right ear Chronic mastoiditis, left 71385696 (SNOMED CT) 12/03 Active 12/03 Lydia Medrano Chronic mastoiditis Medications Medication Instructions Start Date Stop Date Generic Name NDC Provider ceftriaxone recon kikanoemi Rocephin 2gm IV Q 24hrs/ OPAT 06/01 ceftriaxone recon katy espana recon solnoemi Rocephin 2gm IV Q 24hrs INPAT 06/01 ceftriaxone recon katy Gonzales METRONIDAZOLE 500 MG TABS Take 1 tablet by mouth three times a day 06/01 metronidazole 04456384660 Cesar Argueta MD WEGOVY 0.5 MG/0.5ML SOAJ 06/01 semaglutide (weight loss) 54238894788 Lynn Jarvis HYDROCHLOROTHIAZIDE 12.5 MG TABS 06/01 hydrochlorothiazide 70742677922 [facility] VENLAFAXINE HCL 37.5 MG TABS 06/01 venlafaxine 76985437040 [facility] PRISTIQ 100 MG FF81L-ENT once a day desvenlafaxine succinate 88960646963 [facility] ZOSYN 4-0.5 GM/100ML SOLN Q 8 hrs/OPAT 01/26 piperacillin-tazoba ctam-dextrs 87775577783 Bhavana Alamo RN WEGOVY 0.5 MG/0.5ML SOAJ 06/01 semaglutide (weight loss) 16392716004 Farrah Gunjan VENLAFAXINE HCL 37.5 MG TABS 06/01 venlafaxine 60646377848 Farrah Gunjan HYDROCHLOROTHIAZIDE 12.5 MG TABS 01/21 hydrochlorothiazide 84101670447 Farrah Gunjan Medications Administered No information available. [...] Procedures Code Procedure Name Date Entry Date CPT-77306 CMP [id number] CBC with Differential 2024 CPT-49995 C- reactive protein CPT-70980 Sedimentation Rate (ESR) 202 09/17/27 CPT-73006 CMP [id number] CBC with Differential 2024 CPT-42262 C- reactive protein CPT-01652 Sedimentation Rate (ESR) 09/16/20 CPT-sl STAT Labs [id number] CBC with Differential 2024 CPT-25692 CMP CPT-24820 C- reactive protein CPT-18463 Sedimentation Rate (ESR) 09/17/15 CPT- stat weekly Stat Weekly Labs CPT-60390 X-Ray, Chest (PICC Placement only) 06/02 CPT-77702 CMP [id number] CBC with Differential 2024 CPT-84008 C- reactive protein CPT-50650 Sedimentation Rate (ESR) 09/16/13 CPT-sl STAT Labs CPT-sl STAT Labs CPT-sl STAT Labs CPT-67555 CMP [id number] CBC with Differential 2023 CPT-85955 C- reactive protein CPT-49960 Sedimentation Rate (ESR) 08/24/14 CPT-sl STAT Labs CPT-sl STAT Labs CPT-09502 CMP [id number] CBC with Differential 2023 CPT-12599 C- reactive protein CPT-97906 Sedimentation Rate (ESR) 202 08/23/24 CPT- stat weekly Stat Weekly Labs CPT-sl STAT Labs CPT-sl STAT Labs CPT-37868 CMP [id number] CBC with Differential 2023 CPT-06409 C- reactive protein CPT-79337 Sedimentation Rate (ESR) 202 08/23/17 Vital Signs [...]
--- OUTSIDE RECORDS SUMMARY | 2025-01-24 09:53 | XMS_ITS | Clinical Summary ---
[facility] Address [address] [place] [address] Care Team Providers Care Hot Plate Plywood Press Operator Name Role Phone Nicci Baker Primary Care Provider [phone] Social History Tobacco Use Types Packs/Day Years [...] C SCREENING 06/06/2021 COVID-19 Vaccine (2 - 2024-2 6 season) 2025 09/29/2020 INFLUENZA VACCINE 02/16/2025 TDAP/TD VACCINES (2 - Td or Tdap) 12/07/2031 022 MENINGOCOCCAL B VACCINE Aged Out No l onger eligible based on patient's age to complete this topic Pneumococcal Vaccine 0-49 Aged Out No longer eligible based on patient's age to complete this topic Insurance PAIGE QUIÑONEZ [id number] [facility] Care Teams Hot Plate Plywood Press Operator Relationship Specialty Start Date End Date Nicci Baker PA [address] [place] [address] PCP - General Physician Sprayer Leather 12/04/23
--- NOTE | 2025-01-24 10:00 | US_ITS ---
PROCEDURE: US OB /MATERNAL DETAIL CLINICAL INDICATION: 20 week anatomy scan COMPARISON: No exams were available for comparison FINDINGS: Transabdominal sonographic images of the pelvis were obtained. From her established due date she is 20 weeks 0 days. Single viable intrauterine gestation. Breech position. Placenta: Posteriorplacenta grade 1. There is an average amount of fluid. The cervix appears satisfactory. Closed and measuring 4.64 cm in length. Complete survey performed and was unremarkable on the submitted images as in PACS. No discrete anomalies identified on survey imaging by technologist. Active fetus. Three-vessel cord with satisfactory umbilical cord insertion. 4- chamber heart noted. Situs, aortic arch, LVOT RVOT, three-vessel view are not well visualized. Survey of brain & ventricles Unremarkable. Cerebellum, thalamus, choroid plexus, cisterna magna appear normal. Face and neck survey unremarkable. Profile, nasion, lips and nose appeared normal. Diaphragm and chest views unremarkable. Abdomen: Both kidneys noted and unremarkable. Stomach and bladder noted and satisfactory. Spine: Survey of the spine satisfactory with no anomalies identified nor imaged. Cervical, thoracic, lower spine appear normal. Both arms and legs noted. Amniotic Fluid: Adequate. MVP 5.54 cm. Measurements: Average ultrasound age 20weeks 4days. Estimated due date by ultrasound age 0106/09/2025. Estimated weight 370g BPD = 20weeks 1day HC = 20weeks 2days AC = 21weeks 1day FL = 20weeks 3days Growth Percentile= Heart Rate = 143bpm Cerebellum = 19weeks 1day Humerus = 21weeks 1day HC/AC is 1.11 FL/BPD is 0.71 FL/AC is 0.21 IMPRESSION: 1. Viable fetus in the breech presentation with a posterior placenta grade 1. 2. The fluid is within normal limits with an MVP 5.54 cm. 3. Anatomical scan appears normal. 4. RVOT and three-vessel view are not well visualized and suggest the patient return in 2 weeks for repeat views. 5. biometry is consistent with the dates. Dictated by: Donnie Oliver MD 01/24/2025 14:06 Donnie Oliver MD in OV 01/24/2025 14:06
== END 2025-01-24 23:59 | disposition home or self-care (01) ==
LOC: RAD 09:48
PROVIDERS: PCP Obstetrics & Gynecology; Visit Provider Obstetrics & Gynecology
DX: O32.1XX0 Maternal care for breech presentation, not applicable or unspecified (principal); O99.212 Obesity complicating pregnancy, second trimester; O09.292 Supervision of pregnancy with other poor reproductive or obstetric history, second trimester; E66.9 Obesity, unspecified; Z3A.20 20 weeks gestation of pregnancy
CPT/HCPCS: 76811

== ENCOUNTER 2025-01-27 18:10 | Outpatient (CLI) | payer BC, SELFPAY ==
--- OUTSIDE RECORDS SUMMARY | 2024-06-23 09:00 | XMS_ITS ---
Author Organization Ashley Address 1210 [facility] [address] [place] [phone] Care Team Providers Care Finish Molder Name Role Phone Nicci Baker Primary Care Provider [phone] REASON FOR VISIT B12 Shot Medications Medication [...] Encounter Location Date Provider Diagnosis Ashley 1210 [facility] [address] [place] [phone] 06/23/2024 Nicci Baker Vitamin B12 deficien cy E53.8 Assessments Encounter Date Diagnosis (ICD Code) Assessment Notes Treatment Notes Treatment Clinical Notes Section Notes 06/23/2024 Vitamin B12 deficiency (ICD-10 - E53.8) Plan Of Treatment No Information Medications Administered Medication Instructions Date of Administration Dosage Notes B-12 06/23/2024 1 mL Progress Notes * Robbi COLONB:2000 (24 yo F)Acc No.[id number]:06/23/2024 Patient: Karo BARRON Provider: MONA He :2000 A ge:23 Y S ex:Female Date:06/23/2024 Phone: Address:[address] [place] [address] Adolfo Rodriguez, [id number] Subjective: * Chief Complaints: * 1 . [...] deficiency) * Procedure Codes: J 3420 B-12, 37431 ADMINISTRATION OF INJECTION * Images: Billing Information: * Visit Code: * Procedure Codes: J3420 B-12. 84266 ADMINISTRATION OF INJECTION. * Electronic signature of MONA Jolley on 01/27/2025 at 06:14 PM EDT Sign off status: Pending * Provider: MONA He Date: 0 06/23/2024 Generated for Shantanu wong/Alondra/eTsandysmitting on: 0 01/27/2025 06:14 PM EDT
--- OUTSIDE RECORDS SUMMARY | 2024-07-01 10:20 | XMS_ITS ---
[facility] Organization [facility] Address [address] [place] [id number] Care Team Providers Care Insole Stiffener Name Role Phone Nicci Baker Primary Care Provider [phone] Allergies No Known Allergies Results Component Value [...] 07/01/2024 Encounters Encounter Location Date Provider Diagnosis [facility] [address] [place] [id number] 07/01/2024 Nicci Baker Acute URI J06.9 Assessments [...] Notes * DUNIA, KaroDOB:2000 (24 yo F)Acc No.[id number]:07/01/2024 Progress Notes Patient: Karo BARRON Provider: MONA He :2000 A ge:23 Y S ex:Female Date:07/01/2024 Phone: Address:[address] [place], [place] [address], [id number] Subjective: * Chief Complaints: * 1 . [...] * Procedure Codes: 9 4760 [place], [address] STREP A ASSAY W/OPTIC, Modifiers: QW , 33840 CAPILLARY BLOOD DRAW, 97918 CBC WITH AUTO DIFF, 3074F SYST BP LT 130 MM HG, 3079F DIAST BP 80-89 MM HG * Follow Up: p rn * Images: Billing Information: * Visit Code: 76151 Office Visit, Est Pt., Level 3. * Procedure Codes: [address] [place]. [address] STREP A ASSAY W/OPTIC. Modifiers: QW 70544 CAPILLARY BLOOD DRAW. 36617 CBC WITH AUTO DIFF. 3074F SYST BP LT 130 MM HG. 3079F DIAST BP 80-89 MM HG. * Electronic signature of MONA Jolley on 01/27/2025 at 06:15 PM EDT Sign off status: Pending * Provider: MONA He Date: 0 07/01/2024 Generated for Shantanu wong/Alondra/eTelma on: 0 01/27/2025 06:15 PM EDT History and Physical Notes * [...]
--- OUTSIDE RECORDS SUMMARY | 2024-08-19 11:15 | XMS_ITS ---
[facility] Organization [facility] Address [address] [facility] [address] [place] [id number] Care Team Providers Care Laminating Machine Offbearer Name Role Phone Iraj Bakera Primary Care [...] Interpretation:Negative Performing Lab: Notes/Report: Test performed by [facility] [employer] [address], [address], [place] [address] Phoenix Schwarz MD, Canal Boat Operator CLIA: [id number] B burgdorferi (Lyme Disease) IgG Negative Negative B burgdorferi (Lyme Disease) IgM Negative Negative P-Comprehensive Metabolic Pa gene (CMP) Reviewed date:08/26/2024 02:10:10 PM Interpretation:Glu 101 Performing Lab: Notes/Report: Test performed [facility] , [address], [place] [address] Phoenix Schwarz MD, Canal Boat Operator CLIA: [id number] Sodium 141 135-145 mmol/L Potassium 4.1 3.5-5.3 [...] mg/dL A/G Ratio 1.5 1.1-2.5 [facility], [facility] Reviewed date:08/26/2024 02:10:10 PM Interpretation:CRP 0.81 Performing Lab: Notes/Report: Test performed by [facility] [address] [facility] , [address], [place] [address] Phoenix Schwarz MD, Canal Boat Operator CLIA: [id number] Rheumatoid Factor <10 <14.1 IU/mL C-Reactive Protein (CRP) 0.81 <0.50 mg/dL Antinuclear Antibodies (EVER) Screen, Reflex EVER 9 Panel Negative Negative This test is performed by Multiplex Bead Immunoassay methodology. Antinuclear Antibodies (EVER) Result Note SEE COMMENT For positive Autoantibodies, please refer to the interpretive chart here: [email or web address] CCP Antibodies <0.5 <0.5-3.0 U/mL [...] W/U Status Risk Notes Problem Morbid obesity (818765540) Obesity, morbid, BMI 40.0-49.9 (E66.01) Active confirmed Vital Signs Blood pressure systolic 130 mm Hg 08/20/19 25 Blood pressure diastolic 80 mm Hg 025 Heart Rate 100 /min 08/19/2024 Height 69.75 in 08/19/2024 Weight 335 lbs 08/19/2024 BMI 48.41 kg/m2 08/19/2024 Encounters Encounter Location Date Provider Diagnosis [facility] [address] [facility] [address] [place] [address], [place] [id number] 08/19/2024 Nicci Baker Polyarthralgia M25.5 0 and [...] Notes * Karo COLONDOB:2000 (24 yo F)Acc No.[id number]:08/19/2024 Progress Notes Patient: Karo BARRON Provider: MONA He :2000 A ge:23 Y S ex:Female Date:08/19/2024 Phone: Address:[address] [place], [place] [address] Subjective: * Chief Complaints: * 1 . [...] Flu Test- Nasal Swab, Modifiers: QW , 24476 CBC WITH AUTO DIFF, 91980 VENIPUNCT, ROUTINE*, 3075F SYST BP GE 130 - 139MM HG, 3079F DIAST BP 80-89 MM HG * Follow Up: v ia phone to report test results * Images: Billing Information: * Visit Code: 24047 Office Visit, Est Pt., Level 3. * Procedure Codes: 71567 Flu Test- Nasal Swab. Modifiers: QW 63666 CBC WITH AUTO DIFF. 19311 VENIPUNCT, ROUTINE*. 3075F SYST BP GE 130 - 139MM HG. 3079F DIAST BP 80-89 MM HG. * Electronic signature of MONA Jolley on 01/27/2025 at 06:14 PM EDT Sign off status: Pending * Provider: MONA He Date: 0 08/19/2024 Generated for Shantanu wong/Alondra/Donnie on: 0 01/27/2025 06:14 PM EDT History and Physical Notes * [...]
--- OUTSIDE RECORDS SUMMARY | 2024-08-24 04:55 | XMS_ITS ---
Author Organization [facility] Address [address] [facility] [address] [place] [phone] Care Team Providers Care Tuckpointer Cleaner Caulker Name Role Phone Nicci Baker Primary Care Provider REASON FOR VISIT Lab Draw Encounters Encounter Location Date Provider Diagnosis [facility] [address] [place] [id number] 08/24/2024 Nicci Baker Plan Of Treatment No Information Progress Notes * Karo COLONDOB:2000 (24 yo F)Acc No.[id number]:08/24/2024 Patient: Shoaib BARRONssica Provider: MONA He :2000 A ge:23 Y S ex:Female Date:08/24/2024 Phone: Address:[place] Subjective: * Chief Complaints: * 1 . Lab Draw. * Medical History: Objective: * Vitals: Assessment: Plan: * Treatment: * Images: Billing Information: * Visit Code: * Procedure Codes: * Electronic signature of MONA Jolley on 01/27/2025 at 06:15 PM EDT Sign off status: Pending * Provider: MONA He Date: 0 08/24/2024 Generated for Shantanu ng/Faclarissa/eTransmitting on: 0 01/27/2025 06:15 PM EDT
--- OUTSIDE RECORDS SUMMARY | 2024-11-18 12:00 | XMS_ITS ---
Author Organization [facility] Address 1210 [facility] [address] [place] [phone] Care Team Providers Care Geological Aide Name Role Phone Nicci Baker Primary Care Provider [phone] Allergies No Known Allergies REASON FOR [...] Encounter Location Date Provider Diagnosis [facility] [address] [place] [phone] 11/18/2024 Nicci Baker History of mastoidit is Z86.69 Assessments Encounter Date Diagnosis (ICD Code) Assessment Notes Treatment Notes Treatment Clinical Notes Section Notes 11/18/2024 History of mastoiditis (ICD-10 - Z86.69) Patient is going to try to get in to see ENT next week at [facility]. She cannot see Dr. Fabian for 3 weeks. Plan Of Treatment Medication Medication Name Sig Start Date Stop Date Notes Cefdinir 300 MG 1 cap(s) Orally Two times a day; Duration: 10 days 11/18/2024 Treatment Notes Assessment Notes History of mastoiditis Patient is going to try to get in to see ENT next week at [facility]. She cannot see Dr. Fabian for 3 weeks. Next Appt Details Follow Up: with ENT, Reason: Progress Notes * Karo COLONDOB:2000 (24 yo F)Acc No.[id number]:11/18/2024 Progress Notes Patient: Karo BARRON Provider: MONA He :2000 A ge:23 Y S ex:Female Date:11/18/2024 Phone: Address:[address] [place], [place] [address], [id number] Subjective: * Chief Complaints: * 1 . [...] < 90MM HG * Follow Up: w [facility] ENT * Images: Billing Information: * Visit Code: 06615 Office Visit, Est Pt., Level 3. * [...] 11/18/2024 Generated for Shantanu wong/Alondra/eTsandysmitting on: 0 01/27/2025 06:15 PM EDT History [...]
--- OUTSIDE RECORDS SUMMARY | 2025-01-27 18:14 | XMS_ITS | Clinical Summary ---
Author Organization [facility] Address [address] [place] [address] Phone Care Team Providers Care Doughnut Machine Operator Name Role Phone Jasmeet SANTIAGO, Bhavana Maynard Unavailable Conditions or Problems Problem Name Problem Code Onset Date Status Entry Date Provider Comment Standard Description Annotate Ear pain, left 8847878657 (SNOMED CT) 06/01 Active 06/01 Cesar Argueta MD Otalgia of left ear Acute mastoiditis, left 077352690 (SNOMED CT) 06/01 Active 06/01 Cesar Argueta MD Acute mastoiditis Screening for HIV 234295524 (SNOMED CT) 12/17 Active 12/17 Gorge Handy Procedure carried out on subject Acute recurrent suppurative otitis media, left 202791822 (SNOMED CT) 12/04 Active 12/04 Sasha Malik Recurrent acute suppurative otitis media Acute recurrent serous otitis media, left 274150555 (SNOMED CT) 12/03 Active 12/03 Sasha Malik Acute non-suppurat gokul serous otitis media Serratia marcescens infection B96.89 (ICD-10-CM) 12/03 Active 12/03 Cesar Argueta MD Other specified bacterial agents as the cause of diseases classified elsewhere Facial swelling 369525865 (SNOMED CT) 12/03 Active 12/03 Aida Argueta Facial swelling Recurrent otitis media (ROM) 4470415904554 104 (SNOMED CT) 12/03 Inactive 12/03 Aida Argueta Otitis media of right ear Chronic mastoiditis, left 82049953 (SNOMED CT) 12/03 Active 12/03 Lydia Medrano Chronic mastoiditis Medications Medication Instructions Start Date Stop Date Generic Name NDC Provider ceftriaxone recon kikanoemi Rocephin 2gm IV Q 24hrs/ OPAT 06/01 ceftriaxone recon katy espana recon solnoemi Rocephin 2gm IV Q 24hrs INPAT 06/01 ceftriaxone recon katy Gonzales METRONIDAZOLE 500 MG TABS Take 1 tablet by mouth three times a day 06/01 metronidazole 05378794557 Cesar Argueta MD WEGOVY 0.5 MG/0.5ML SOAJ 06/01 semaglutide (weight loss) 59645999263 Lynn Jarvis HYDROCHLOROTHIAZIDE 12.5 MG TABS 06/01 hydrochlorothiazide 54518727900 [facility] VENLAFAXINE HCL 37.5 MG TABS 06/01 venlafaxine 34954923889 [facility] PRISTIQ 100 MG [id number]-XDU once a day desvenlafaxine succinate 79198714586 [facility] ZOSYN 4-0.5 GM/100ML SOLN Q 8 hrs/OPAT 01/26 piperacillin-tazoba ctam-dextrs 84669553360 Bhavana Alamo RN WEGOVY 0.5 MG/0.5ML SOAJ 06/01 semaglutide (weight loss) 45636532739 Farrah Gunjan VENLAFAXINE HCL 37.5 MG TABS 06/01 venlafaxine 33973126190 Farrah Gunjan HYDROCHLOROTHIAZIDE 12.5 MG TABS 01/21 hydrochlorothiazide 64023954285 Farrah Gunjan Medications Administered No information available. [...] Procedures Code Procedure Name Date Entry Date CPT-27221 CMP [id number] CBC with Differential 2024 CPT-28803 C- reactive protein CPT-31569 Sedimentation Rate (ESR) 202 09/17/27 CPT-22808 CMP [id number] CBC with Differential 2024 CPT-16965 C- reactive protein CPT-96682 Sedimentation Rate (ESR) 09/16/20 CPT-sl STAT Labs [id number] CBC with Differential 2024 CPT-13434 CMP CPT-90371 C- reactive protein CPT-14501 Sedimentation Rate (ESR) 09/17/15 CPT- stat weekly Stat Weekly Labs CPT-12117 X-Ray, Chest (PICC Placement only) 06/02 CPT-76060 CMP [id number] CBC with Differential 2024 CPT-02137 C- reactive protein CPT-79473 Sedimentation Rate (ESR) 09/16/13 CPT-sl STAT Labs CPT-sl STAT Labs CPT-sl STAT Labs CPT-73351 CMP [id number] CBC with Differential 2023 CPT-63819 C- reactive protein CPT-15451 Sedimentation Rate (ESR) 08/24/14 CPT-sl STAT Labs CPT-sl STAT Labs CPT-44260 CMP [id number] CBC with Differential 2023 CPT-34082 C- reactive protein CPT-00288 Sedimentation Rate (ESR) 202 08/23/24 CPT- stat weekly Stat Weekly Labs CPT-sl STAT Labs CPT-sl STAT Labs CPT-25028 CMP [id number] CBC with Differential 2023 CPT-85112 C- reactive protein CPT-63898 Sedimentation Rate (ESR) 202 08/23/17 Vital Signs [...]
--- OUTSIDE RECORDS SUMMARY | 2025-01-27 18:14 | XMS_ITS | Clinical Summary ---
[facility] Address [address] [place] [address] Care Team Providers Care Seam Press Operator Name Role Phone Nicci Baker Primary Care Provider [phone] Social History Tobacco Use Types Packs/Day Years [...] to complete this topic Insurance PAIGE QUIÑONEZ [id number] [facility] Care Teams Seam Press Operator Relationship Specialty Start Date End Date Nicci Baker PA [address] [place] [address] PCP - General Physician Administrative Intern 12/04/23
--- OUTSIDE RECORDS SUMMARY | 2025-01-27 18:16 | XMS_ITS | Patient Health Record ---
[facility] Organization [facility] Address [address] [place] [id number] Care Team Providers Care Advertising Specialist Name Role Phone Nicci Baker Primary Care Provider Sulma Amador Unavailable [phone] Allergies No Known Allergies Results Component Value [...] - 38 plat 276 100 - 400 Influenza Screen (in house) [...] 274 100 - 400 P-Lyme Disease (B. jarrodrf irma), IgG/IgM, NAINA, Serum Reviewed date:08/26/2024 02:10:10 PM Interpretation:Negative Performing Lab: Notes/Report: Test performed by [facility] [address] [place] [address] , [place] [address] Phoenix Schwarz MD, Assistant Tennis Professional CLIA: [id number] B burgdorferi (Lyme Disease) IgG Negative Negative B burgdorferi (Lyme Disease) IgM Negative Negative P-Comprehensive Metabolic Pa gene (CMP) Reviewed date:08/26/2024 02:10:10 PM Interpretation:Glu 101 Performing Lab: Notes/Report: Test performed by [facility] [address] [place] [address] , [address], [place] [address] Phoenix Schwarz MD, Assistant Tennis Professional CLIA: [id number] Sodium 141 135-145 mmol/L Potassium 4.1 3.5-5.3 [...] mg/dL A/G Ratio 1.5 1.1-2.5 P-Arthritis Panel, [facility] Reviewed date:08/26/2024 02:10:10 PM Interpretation:CRP 0.81 Performing Lab: Notes/Report: Test performed by [facility] [address] [place] [address] , [address], [place] [address] Phoenix Schwarz MD, Assistant Tennis Professional CLIA: [id number] Rheumatoid Factor <10 <14.1 IU/mL C-Reactive Protein (CRP) 0.81 <0.50 mg/dL Antinuclear Antibodies (EVER) Screen, Reflex EVER 9 Panel Negative Negative This test is performed by Multiplex Bead Immunoassay methodology. Antinuclear Antibodies (EVER) Result Note SEE COMMENT For positive Autoantibodies, please refer to the interpretive chart here: [email or web address] CCP Antibodies <0.5 <0.5-3.0 U/mL Erythrocyte Sedimentation Rate (ESR), Automated Specimen received beyond stability.. Test cannot be performed. Acceptable stability from collection is [24 hours]. H-TSH Reviewed date:06/16/2024 09:14:56 AM Interpretation:Normal Performing [...] Interpretation:8 Performing Lab: Notes/Report: Test performed by [facility] [employer] [address] [place] [address] , [address], [place] [address] Phoenix Schwarz MD, Assistant Tennis Professional CLIA: [id number] Erythrocyte Sedimentation Rate (ESR), Automated 8 <26 mm/hr TEN-Upper Respiratory PCR Reviewed date:02/13/2024 08:50:15 AM Interpretation:Abnormal; Rhinovirus Performing Lab: Notes/Report: Abnormal; Rhinovirus CBC Fingerstick (in house) Reviewed date:03/17/2024 02:55:29 [...] - 38 plat 149 100 - 400 CT scan : Temporal bones w/ and w/o IV contrast Reviewed date:05/26/2024 02:38:23 PM Interpretation:not performed due to insurance Performing Lab: Notes/Report: not performed due to insurance CBC Fingerstick (in house) Reviewed date:02/10/2024 01:31:10 [...] - 38 plat 272 100 - 400 Reason For Referral No Information Medications Medication [...] Status Risk Notes Problem Gastroesophageal reflux disease (223549085) GERD (gastroesophageal reflux disease) (K21.9) Active confirmed Problem Hypertension (72615967) HTN (hypertension) (I10) Active confirmed Problem Hyperlipidemia (08622938) Hyperlipidemia (E78.5) Active confirmed Problem Vitamin D deficiency (75813590) Vitamin D deficiency (E55.9) Active confirmed Problem Paresthesia (22374133) Paresthesia (R20.2) Active confirmed Problem Mixed anxiety and depressive disorder (221445435) Depression with anxiety (F41.8) Active confirmed Problem Hearing loss (93791481) Hearing loss (H91.90) Active confirmed Problem Amenorrhea (45587688) Amenorrhea (N91.2) Active confirmed Problem Body mass index 40+ - severely obese (571649628) BMI 45.0-49.9, adult (Z68.42) Active confirmed Problem Migraine (76725698) Migraine wit hout status migrainosus, not intractable, unspecified migraine type (G43.909) Active confirmed Problem Anemia (422461082) Anemia, unspecified type (D64.9) Active confirmed Problem Morbid obesity (289747145) Obesity, morbid, BMI 40.0-49.9 (E66.01) Active confirmed Problem Insulin resistance (643058941) Insulin resistance (E88.81) Active confirmed Problem Chronic serous otitis media (61280404) Left chronic serous otitis media (H65.22) Active confirmed Problem Refractory migraine without aura (394023842) Intractable migraine without aura and without status migrainosus (G43.019) Active confirmed Problem Anxiety depression (431462314) Anxiety with depression (F41.8) Active confirmed Problem Major depression, single episode (49433771) Major depressive disorder with current active episode, unspecified depression episode severity, unspecified whether recurrent (F32.9) Active confirmed Vital Signs Heart Rate 77 /min 11/18/2024 Blood pressure diastolic 82 mm Hg 11/18/2024 Height 69.75 in 11/18/2024 Blood pressure systolic 130 mm Hg 11/18/2024 Weight 336 lbs 11/18/2024 BMI 48.55 kg/m2 11/18/2024 Encounters Encounter Location Date Provider Diagnosis [facility] [address] [place], [place] [id number] 02/04/2024 Nicci Crowdy [facility] [address] [place], [place] [id number] 03/03/2024 Nicci Crowdy [facility] [address] [place] [id number] 03/04/2024 Nicci Crowdy [facility] [address] [place] [id number] 05/26/2024 Nicciconstance Baker History of mastoidit is Z86.69 [facility] [address] [place], [place] [id number] 06/02/2024 Nicci Crowdy [facility] [address] [place], [place] [id number] 06/11/2024 Nicci Johanndy HTN (hypertension) I 10 ; Iron deficiency E61.1 ; Vitamin D deficiency E55.9 ; Diabetes mellitus screening Z13.1 ; Anemia, unspecified type D64.9 ; Thyroid disorder screen Z13.29 ; Hyperlipidemia E78.5 and Vitamin B12 deficiency E53.8 [facility] [address] [place] [id number] 06/16/2024 Nicci Crowdy [facility] [address] [place] [id number] 06/16/2024 Nicci Crowdy [facility] [address] [place] [id number] 07/05/2024 Nicci Crowdy [facility] [address] [place] [id number] 08/26/2024 Nicci Crowdy [facility] [address] [place] [id number] 10/01/2024 Nicci Crowdy [facility] [address] [place] [id number] 10/06/2024 Nicci Crowdy [facility] [address] [place] [id number] 07/01/2024 Nicci Crowdy Acute URI J06.9 [facility] [address] [facility] [address] [place], [place] [id number] 08/19/2024 Ncici Crowdy Polyarthralgia M25.5 0 and Obesity, morbid, BMI 40.0-49.9 E66.01 [facility] [address] [facility] [address] [place], [place] [id number] 11/18/2024 Nicci Samuel History of mastoidit is Z86.69 [facility] [address] [facility] [address] [place], [place] [id number] 02/10/2024 Sulma Amador Bronchitis J40 [facility] [address] [facility] [address] [place], [place] [id number] 03/17/2024 Nicci Crowdy Acute URI J06.9 [facility] [address] [facility] [address] [place] [id number] 06/23/2024 Nicci Crowdy Vitamin B12 deficien cy E53.8 [facility] [address] [facility] [address] [place] [id number] 08/24/2024 Nicci Crowdy Assessments Encounter Date Diagnosis (ICD Code) Assessment Notes Treatment Notes Treatment Clinical Notes Section Notes 08/19/2024 Polyarthralgia (ICD-10 - M25.50) 08/19/2024 Obesity, morbid, BMI 40.0-49.9 (ICD-10 - E66.01) 07/01/2024 Acute URI (ICD-10 - J06.9) 02/10/2024 Bronchitis (ICD-10 - J40) fluids, rest, supportive measures for fever/symptom relief; will try Mucinex DM and airsupra inhaler 06/23/2024 Vitamin B12 deficiency (ICD-10 - E53.8) 11/18/2024 History of mastoiditis (ICD-10 - Z86.69) Patient is going to try to get in to see ENT next week at [facility]. She cannot see Dr. Fabian for 3 weeks. 06/11/2024 Iron deficiency (ICD-10 - E61.1) 03/17/2024 Acute URI (ICD-10 - J06.9) Has bromfed at home. 05/26/2024 History of mastoiditis (ICD-10 - Z86.69) 06/11/2024 HTN (hypertension) (ICD-10 - I10) 06/11/2024 Vitamin D deficiency (ICD-10 - E55.9) [...] Coverage Start Date Coverage End Date DEEJAY [facility] [facility] [address] [place] [address] [id number] 1EKaro Winter Self - patient is the insured Medications Administered Medication Instructions Date of Administration Dosage Notes B-12 06/23/2024 1 mL Medical (General) History Medical History History ICD Code Hypertension Insulin Resistance COVID 19- 03/23/2021 chronic OM left eAR left mastoiditis Surgical History Surgery Date(Month/Year) [place] Teeth Extractions 07/2019 01/15/2022 cholecystectomy 03/04/2022 C- Section 05/26/2023 left myringotomy tube placement 11/18/2023 Hospitalization History Reason Date(Month/Year) 05/2023 01/2022
[2025-01-27 18:46] VITALS: BMI 47.2
[2025-01-27 18:53] LABS: Microscopic, Urine URINE MICROSCOPIC (MICROSCOPIC)
[2025-01-27 18:58] LABS: Bilirubin,Urine Negative (Negative); Color,Urine YELLOW (Yellow); Glucose,Urine (UA) Negative (Negative); Ketones,Urine TRACE (Negative); Leukocyte Esterase,Urine Negative (Negative); PH,Urine 6.5 (5.0-8.5); Protein,Urine Negative (Negative); Specific Gravity, Urine 1.025 (1.005-1.030); Urobilinogen,Urine 2.0 EU/dl (0.2)
[2025-01-27 19:05] VITALS: BP 130/67; PULSE 92; RESP 19; TEMP 36.9; O2SAT 96; BMI 47.0
[2025-01-27 19:18] LABS: Bacteria,Urine 4+ /lpf; Calcium Oxalate Crystals,Urine 1+ /lpf; Mucus,Urine 3+ /lpf; Squamous Epithelial Cell,Urine 20-50 #/hpf (0-5)
[2025-01-27] MEDS: LABETALOL 100MG TABLET 100 MG PO (20:01)
[2025-01-27 20:46] LABS: Hematocrit 33.5 % (37.0-47.0); Hemoglobin 11.1 g/dL (12.2-16.2); Immature Granulocytes % 0.5 %; Mean Corpuscular HGB Conc 33.1 g/dL (31.8-35.4); Mean Corpuscular Hemoglobin 25.5 pg (27.0-31.2); Mean Corpuscular Volume 77.0 fl (81-99); Nucleated Red Blood Cells % 0 %; Platelet Count 222 K/mm3 (142-424); Red Blood Count 4.35 M/mm3 (4.20-5.40); Red Cell Distribution Width-SD 46.5 fL; White Blood Count 7.6 K/mm3 (4.8-10.8)
[2025-01-27 21:01] LABS: Alanine Aminotransferase 10 U/L (12-78); Albumin Level 3.6 g/dl (3.5-5.0); Albumin/Globulin Ratio 1.2 (1.1-1.8); Alkaline Phosphatase 58 U/L (38-126); Anion Gap 9.6 mEq/L (5-15); Aspartate Amino Transferase 17 U/L (14-36); Bilirubin,Total 0.3 mg/dl (0.2-1.3); Blood Urea Nitrogen 5 mg/dl (7-17); Calcium 8.6 mg/dl (8.4-10.2); Carbon Dioxide 23 mmol/L (22.0-30.0); Chloride 108 mmol/L (98-107); Creatinine Clearance Estimated 188 mL/min (50-200); Creatinine,Serum 0.50 mg/dl (0.52-1.04); Estimated Glomerular Filt Rate 152 ml/min (>60); GFR (African American) 183 ML/MIN (>60); Globulin 3.0 g/dL (1.3-3.2); Glucose 102 mg/dl (74-100); Potassium 3.6 mmoL/L (3.5-5.1); Sodium 137 mmol/L (136-145); Total Protein,Serum 6.6 g/dl (6.3-8.2)
[2025-01-27 21:02] LABS: Uric Acid 3.3 mg/dl (2.5-6.2)
== END 2025-01-27 21:46 | disposition home or self-care (01) ==
LOC: OBOUT 18:13 → OB 18:14
PROVIDERS: PCP Physician Assistant; Visit Provider Obstetrics & Gynecology
DX: Z34.82 Encounter for supervision of other normal pregnancy, second trimester (principal); R51.9 Headache, unspecified; H53.8 Other visual disturbances; Z3A.20 20 weeks gestation of pregnancy
CPT/HCPCS: 36415; 80053; 81001; 82570; 83615; 84156; 84550; 85025; 87086; 99212; G0463

== ENCOUNTER 2025-02-09 14:21 | Outpatient (CLI) | payer BC, SELFPAY ==
--- OUTSIDE RECORDS SUMMARY | 2024-06-23 09:00 | XMS_ITS ---
Author Organization Ashley Address 1210 [facility] [address] [place] [phone] Care Team Providers Care Enrollment Coordinator Name Role Phone Nicci Baker Primary Care [...] Encounter Location Date Provider Diagnosis Ashley 1210 [facility] [address] [place] [id number] 06/23/2024 Nicci Baker Vitamin B12 deficien cy E53.8 Assessments Encounter Date Diagnosis (ICD Code) Assessment Notes Treatment Notes Treatment Clinical Notes Section Notes 06/23/2024 Vitamin B12 deficiency (ICD-10 - E53.8) Plan Of Treatment No Information Medications Administered Medication Instructions Date of Administration Dosage Notes B-12 06/23/2024 1 mL Progress Notes * Robbi COLONB:2000 (24 yo F)Acc No.[id number]:06/23/2024 Patient: Karo BARRON Provider: MONA He :2000 A ge:23 Y S ex:Female Date:06/23/2024 Phone: Address:[address] [place] [address] Adolfo Rodriguez, [id number] Subjective: * Chief Complaints: * 1 . [...] deficiency) * Procedure Codes: J 3420 B-12, 76622 ADMINISTRATION OF INJECTION * Images: Billing Information: * Visit Code: * Procedure Codes: J3420 B-12. 55068 ADMINISTRATION OF INJECTION. * Electronic signature of MONA Jolley on 02/09/2025 at 02:24 PM EDT Sign off status: Pending * Provider: MONA He Date: 06/23/2024 Generated for Shantanu wong/Alondra/eTransmitting on: 0 02/09/2025 02:24 PM EDT
--- OUTSIDE RECORDS SUMMARY | 2024-07-01 10:20 | XMS_ITS ---
Author Organization [facility] Address [address] [place] [phone] Care Team Providers Care Recreation Aide Name Role Phone Nicci Baker Primary Care Provider [phone] Allergies No Known Allergies Results Component Value [...] 07/01/2024 Encounters Encounter Location Date Provider Diagnosis [facility] [address] [place] [phone] 07/01/2024 Nicci Baker Acute URI J06.9 Assessments [...] Notes * DUNIA, KaroDOB:2000 (24 yo F)Acc No.[id number]:07/01/2024 Progress Notes Patient: Karo BARRON Provider: MONA He :2000 A ge:23 Y S ex:Female Date:07/01/2024 Phone: Address:[address] [place], [place] [address], [place] Subjective: * Chief Complaints: * 1 . [...] * Procedure Codes: 9 4760 [place], [address] STREP A ASSAY W/OPTIC, Modifiers: QW , 01259 CAPILLARY BLOOD DRAW, 78695 CBC WITH AUTO DIFF, 3074F SYST BP LT 130 MM HG, 3079F DIAST BP 80-89 MM HG * Follow Up: p rn * Images: Billing Information: * Visit Code: 89447 Office Visit, Est Pt., Level 3. * Procedure Codes: [address] [place]. [address] STREP A ASSAY W/OPTIC. Modifiers: QW 91163 CAPILLARY BLOOD DRAW. 24271 CBC WITH AUTO DIFF. 3074F SYST BP LT 130 MM HG. 3079F DIAST BP 80-89 MM HG. * Electronic signature of MONA Jolley on 02/09/2025 at 02:25 PM EDT Sign off status: Pending * Provider: MONA He Date: 0 07/01/2024 Generated for Shantanu wong/Alondra/eTelma on: 0 02/09/2025 02:25 PM EDT History and Physical Notes * [...]
--- OUTSIDE RECORDS SUMMARY | 2024-08-19 11:15 | XMS_ITS ---
Author Organization [facility] Address [address] [facility] [address] [place] [id number] Care Team Providers Care Night Stocker Name Role Phone Iraj Bakera Primary Care [...] Interpretation:Negative Performing Lab: Notes/Report: Test performed by [employer] [facility] [employer] [place] [address], [address], [place] [address] Phoenix Schwarz MD, Hr Administrator CLIA: [id number] B burgdorferi (Lyme Disease) IgG Negative Negative B burgdorferi (Lyme Disease) IgM Negative Negative P-Comprehensive Metabolic Pa gene (CMP) Reviewed date:08/26/2024 02:10:10 PM Interpretation:Glu 101 Performing Lab: Notes/Report: Test performed by [employer] [facility] , [address], [place] [address] Phoenix Schwarz MD, Hr Administrator CLIA: [id number] Sodium 141 135-145 mmol/L Potassium 4.1 3.5-5.3 [...] mg/dL A/G Ratio 1.5 1.1-2.5 [facility]-Arthritis Panel, [facility] Reviewed date:08/26/2024 02:10:10 PM Interpretation:CRP 0.81 Performing Lab: Notes/Report: Test performed by [employer] [address] [facility] , [address], [place] [address] Phoenix Schwarz MD, Hr Administrator CLIA: [id number] Rheumatoid Factor <10 <14.1 IU/mL C-Reactive Protein (CRP) 0.81 <0.50 mg/dL Antinuclear Antibodies (EVER) Screen, Reflex EVER 9 Panel Negative Negative This test is performed by Multiplex Bead Immunoassay methodology. Antinuclear Antibodies (EVER) Result Note SEE COMMENT For positive Autoantibodies, please refer to the interpretive chart here: [email or web address] Pharmaceuticals/w p-content/uploads/EVER-Inter pretive-Chart.pdf CCP Antibodies <0.5 <0.5-3.0 U/mL [...] W/U Status Risk Notes Problem Morbid obesity (101389267) Obesity, morbid, BMI 40.0-49.9 (E66.01) Active confirmed Vital Signs Weight 335 lbs 08/19/2024 Blood pressure systolic 130 mm Hg 08/20/19 25 Blood pressure diastolic 80 mm Hg 025 Heart Rate 100 /min 08/19/2024 Height 69.75 in 08/19/2024 BMI 48.41 kg/m2 08/19/2024 Encounters Encounter Location Date Provider Diagnosis [facility] [address] [facility] [address] [place] [address], [place] [id number] 08/19/2024 Nicci Baker Polyarthralgia M25.5 0 and [...] Notes * Karo COLONDOB:2000 (24 yo F)Acc No.[id number]:08/19/2024 Progress Notes Patient: Karo BARRON Provider: MONA He :2000 A ge:23 Y S ex:Female Date:08/19/2024 Phone: Address:[address] [place], [place] [address]Adolfo [facility] Subjective: * Chief Complaints: * 1 . [...] Flu Test- Nasal Swab, Modifiers: QW , 75435 CBC WITH AUTO DIFF, 17107 VENIPUNCT, ROUTINE*, 3075F SYST BP GE 130 - 139MM HG, 3079F DIAST BP 80-89 MM HG * Follow Up: v ia phone to report test results * Images: Billing Information: * Visit Code: 27097 Office Visit, Est Pt., Level 3. * Procedure Codes: 91119 Flu Test- Nasal Swab. Modifiers: QW 15513 CBC WITH AUTO DIFF. 48158 VENIPUNCT, ROUTINE*. 3075F SYST BP GE 130 - 139MM HG. 3079F DIAST BP 80-89 MM HG. * Electronic signature of MONA Jolley on 02/09/2025 at 02:24 PM EDT Sign off status: Pending * Provider: MONA He Date: 0 08/19/2024 Generated for Shantanu wong/Alondra/Donnie on: 0 02/09/2025 02:24 PM EDT History and Physical Notes * [...]
--- OUTSIDE RECORDS SUMMARY | 2024-08-24 04:55 | XMS_ITS ---
Author Organization [facility] Address [address] [facility] [address] [place] [phone] Care Team Providers Care Director Of Vocational Guidance Name Role Phone Nicci Baker Primary Care Provider REASON FOR VISIT Lab Draw Encounters Encounter Location Date Provider Diagnosis [facility] [address] [place] [id number] 08/24/2024 Nicci Baker Plan Of Treatment No Information Progress Notes * Karo COLONDOB:2000 (24 yo F)Acc No.[id number]:08/24/2024 Patient: Shoaib BARRONssica Provider: MONA He :2000 A ge:23 Y S ex:Female Date:08/24/2024 Phone: Address:[place] Subjective: * Chief Complaints: * 1 . Lab Draw. * Medical History: Objective: * Vitals: Assessment: Plan: * Treatment: * Images: Billing Information: * Visit Code: * Procedure Codes: * Electronic signature of MONA Jolley on 02/09/2025 at 02:24 PM EDT Sign off status: Pending * Provider: MONA He Date: 0 08/24/2024 Generated for Shantanu ng/Faclarissa/eTransmitting on: 02/09/2025 02:24 PM EDT
--- OUTSIDE RECORDS SUMMARY | 2024-11-18 12:00 | XMS_ITS ---
Author Organization [facility] Address 1210 [facility] [address] [place] [phone] Care Team Providers Care Process Improvement Manager Name Role Phone Nicci Baker Primary [...] Encounter Location Date Provider Diagnosis [facility] [address] [place] [id number] 11/18/2024 Nicci Baker History of mastoidit is Z86.69 Assessments Encounter Date Diagnosis (ICD Code) Assessment Notes Treatment Notes Treatment Clinical Notes Section Notes 11/18/2024 History of mastoiditis (ICD-10 - Z86.69) Patient is going to try to get in to see ENT next week at [facility]. She cannot see Dr. Fabian for 3 weeks. Plan Of Treatment Medication Medication Name Sig Start Date Stop Date Notes Cefdinir 300 MG 1 cap(s) Orally Two times a day; Duration: 10 days 11/18/2024 Treatment Notes Assessment Notes History of mastoiditis Patient is going to try to get in to see ENT next week at [facility]. She cannot see Dr. Fabian for 3 weeks. Next Appt Details Follow Up: with ENT, Reason: Progress Notes * Karo COLONDOB:2000 (24 yo F)Acc No.[id number]:11/18/2024 Progress Notes Patient: Karo BARRON Provider: MONA He :2000 A ge:23 Y S ex:Female Date:11/18/2024 Phone: Address:[address] [place], [place] [address], [id number] Subjective: * Chief Complaints: * 1 . [...] < 90MM HG * Follow Up: w [facility] ENT * Images: Billing Information: * Visit Code: 15377 Office Visit, Est Pt., Level 3. * Procedure Codes: 1036F TOBACCO NON-USER. G8783 BP SCR PRFRM RCMDD DEFIND SCR INTVL. G8752 MOST RECENT SYSTOLIC BP < 140MM HG. G8754 MOST RECENT DIASTOLIC BP < 90MM HG. * Electronic signature of MONA Jolley on 02/09/2025 at 02:24 PM EDT Sign off status: Pending * Provider: MONA He Date: 11/18/2024 Generated for Shantanu wong/Alondra/eTsandysmitting on: 02/09/2025 02:24 PM EDT History and Physical [...]
--- OUTSIDE RECORDS SUMMARY | 2025-02-09 14:24 | XMS_ITS | Clinical Summary ---
Author Organization [facility] Address [address] [place] [address] Phone Care Team Providers Care Critical Care Specialist Name Role Phone Jasmeet SANTIAGO, Bhavana Maynard Unavailable Conditions or Problems Problem Name Problem Code Onset Date Status Entry Date Provider Comment Standard Description Annotate Ear pain, left 7716779109 (SNOMED CT) 06/01 Active 06/01 Cesar Argueta MD Otalgia of left ear Acute mastoiditis, left 615160074 (SNOMED CT) 06/01 Active 06/01 Cesar Argueta MD Acute mastoiditis Screening for HIV 570342353 (SNOMED CT) 12/17 Active 12/17 Groge Handy Procedure carried out on subject Acute recurrent suppurative otitis media, left 651728440 (SNOMED CT) 12/04 Active 12/04 Sasha Malik Recurrent acute suppurative otitis media Acute recurrent serous otitis media, left 399947551 (SNOMED CT) 12/03 Active 12/03 Sasha Malik Acute non-suppurat gokul serous otitis media Serratia marcescens infection B96.89 (ICD-10-CM) 12/03 Active 12/03 Cesar Argueta MD Other specified bacterial agents as the cause of diseases classified elsewhere Facial swelling 597241253 (SNOMED CT) 12/03 Active 12/03 Aida Argueta Facial swelling Recurrent otitis media (ROM) 0687385209658 104 (SNOMED CT) 12/03 Inactive 12/03 Aida Argueta Otitis media of right ear Chronic mastoiditis, left 25359209 (SNOMED CT) 12/03 Active 12/03 Lydia Medrano Chronic mastoiditis Medications Medication Instructions Start Date Stop Date Generic Name NDC Provider ceftriaxone recon kikanoeim Rocephin 2gm IV Q 24hrs/ OPAT 06/01 ceftriaxone recon katy espana recon solnoemi Rocephin 2gm IV Q 24hrs INPAT 06/01 ceftriaxone recon katy Gonzales METRONIDAZOLE 500 MG TABS Take 1 tablet by mouth three times a day 06/01 metronidazole 83829813262 Cesar Argueta MD WEGOVY 0.5 MG/0.5ML SOAJ 06/01 semaglutide (weight loss) 05619315933 Lynn Jarvis HYDROCHLOROTHIAZIDE 12.5 MG TABS 06/01 hydrochlorothiazide 31235609789 [facility] VENLAFAXINE HCL 37.5 MG TABS 06/01 venlafaxine 50266629476 [facility] PRISTIQ 100 MG XX73Y-LYR once a day desvenlafaxine succinate 36934408274 [facility] ZOSYN 4-0.5 GM/100ML SOLN Q 8 hrs/OPAT 01/26 piperacillin-tazoba ctam-dextrs 56725364891 Bhavana Alamo RN WEGOVY 0.5 MG/0.5ML SOAJ 06/01 semaglutide (weight loss) 27306530144 Farrah Gunjan VENLAFAXINE HCL 37.5 MG TABS 06/01 venlafaxine 80573048047 Farrah Gunjan HYDROCHLOROTHIAZIDE 12.5 MG TABS 01/21 hydrochlorothiazide 58378489513 Farrah Gunjan Medications Administered No information available. [...] Procedures Code Procedure Name Date Entry Date CPT-57824 CMP [id number] CBC with Differential 2024 CPT-26750 C- reactive protein CPT-23444 Sedimentation Rate (ESR) 202 09/17/27 CPT-22524 CMP [id number] CBC with Differential 2024 CPT-30054 C- reactive protein CPT-64055 Sedimentation Rate (ESR) 09/16/20 CPT-sl STAT Labs [id number] CBC with Differential 2024 CPT-92580 CMP CPT-82306 C- reactive protein CPT-07991 Sedimentation Rate (ESR) 09/17/15 CPT- stat weekly Stat Weekly Labs CPT-89196 X-Ray, Chest (PICC Placement only) 06/02 CPT-63980 CMP [id number] CBC with Differential 2024 CPT-94789 C- reactive protein CPT-83161 Sedimentation Rate (ESR) 09/16/13 CPT-sl STAT Labs CPT-sl STAT Labs CPT-sl STAT Labs CPT-04775 CMP [id number] CBC with Differential 2023 CPT-79092 C- reactive protein CPT-48593 Sedimentation Rate (ESR) 08/24/14 CPT-sl STAT Labs CPT-sl STAT Labs CPT-01690 CMP [id number] CBC with Differential 2023 CPT-12607 C- reactive protein CPT-59144 Sedimentation Rate (ESR) 202 08/23/24 CPT- stat weekly Stat Weekly Labs CPT-sl STAT Labs CPT-sl STAT Labs CPT-15966 CMP [id number] CBC with Differential 2023 CPT-58536 C- reactive protein CPT-14699 Sedimentation Rate (ESR) 202 08/23/17 Vital Signs [...]
--- OUTSIDE RECORDS SUMMARY | 2025-02-09 14:24 | XMS_ITS | Clinical Summary ---
Author Organization [facility] Address [address] [id number] Care Team Providers Care Hydroelectric Station Chief Name Role Phone Nicci Baker Primary Care Provider [phone] Social History Tobacco Use Types Packs/Day Years [...] ANNUAL PHYSICAL 06/06/2021 HEPATITIS C SCREENING 06/06/2021 INFLUENZA VACCINE 12/17/2024 TDAP/TD VACCINES (2 - Td or Tdap) 12/07/2031 022 MENINGOCOCCAL B VACCINE Aged Out No l onger eligible based on patient's age to complete this topic Pneumococcal Vaccine 0-49 Aged Out No longer eligible based on patient's age to complete this topic Insurance [id number] [id number] [facility] PPO Member Subscriber Plan / Payer (Ef fective 2023-Present) Name:Karo Colon Relation to Subscriber:Spouse Name:FAVIAN COLON Date of :1998 (Home) Address: [address] [place], [place] [address] [address] Payer ID:[id number] (NAIC) Type:Not on file Address: [address] [place] [id number] Care Teams Hydroelectric Station Chief Relationship Specialty Start Date End Date Nicci Baker PA [address] [facility] [id number] PCP - General Physician Veneer Marker 12/04/23
--- OUTSIDE RECORDS SUMMARY | 2025-02-09 14:25 | XMS_ITS | Patient Health Record ---
[facility] Address [address] [facility] [address] [place] [id number] Care Team Providers Care Filteration Operator Name Role Phone Nicci Baker Primary Care Provider [phone] Sulma Amador Unavailable [phone] Allergies No Known Allergies Results Component Value [...] 274 100 - 400 P-Lyme Disease (B. tiffaniedorf irma), IgG/IgM, NAINA, Serum Reviewed date:08/26/2024 02:10:10 PM Interpretation:Negative Performing Lab: Notes/Report: Test performed by [facility] [address] [place] [address] , [address], [place] [address] Phoenix Schwarz MD, Blade Changer CLIA: [id number] B burgdorferi (Lyme Disease) IgG Negative Negative B burgdorferi (Lyme Disease) IgM Negative Negative P-Comprehensive Metabolic Pa gene (CMP) Reviewed date:08/26/2024 02:10:10 PM Interpretation:Glu 101 Performing Lab: Notes/Report: Test performed by [facility] [address] [place] [address] , [address], [place] [address] Phoenix Schwarz MD, Blade Changer CLIA: [id number] Sodium 141 135-145 mmol/L Potassium 4.1 3.5-5.3 [...] mg/dL A/G Ratio 1.5 1.1-2.5 P-Arthritis Panel, [facility] Reviewed date:08/26/2024 02:10:10 PM Interpretation:CRP 0.81 Performing Lab: Notes/Report: Test performed by [facility] [address] , [address], [place] [address] Phoenix Schwarz MD, Blade Changer CLIA: [id number] Rheumatoid Factor <10 <14.1 IU/mL C-Reactive Protein (CRP) 0.81 <0.50 mg/dL Antinuclear Antibodies (EVER) Screen, Reflex EVER 9 Panel Negative Negative This test is performed by Multiplex Bead Immunoassay methodology. Antinuclear Antibodies (EVER) Result Note SEE COMMENT For positive Autoantibodies, please refer to the interpretive chart here: [email or web address] CCP Antibodies <0.5 <0.5-3.0 U/mL Erythrocyte Sedimentation Rate (ESR), Automated Specimen received beyond stability.. Test cannot be performed. Acceptable stability from collection is [24 hours]. CBC Fingerstick (in house) Reviewed date:03/17/2024 02:55:29 [...] - 38 plat 149 100 - 400 TEN-Upper Respiratory PCR Reviewed date:02/13/2024 08:50:15 AM Interpretation:Abnormal; Rhinovirus Performing Lab: Notes/Report: Abnormal; Rhinovirus CT scan : Temporal bones w/ and w/o IV contrast Reviewed date:05/26/2024 02:38:23 PM Interpretation:not performed due to insurance Performing Lab: Notes/Report: not performed due to insurance P-Sed Rate (ESR) Reviewed date:08/26/2024 02:10:10 PM Interpretation:8 Performing Lab: Notes/Report: Test performed by [facility] [address] [place], [place] [address] , [address], [place] [address] Phoenix Schwarz MD, Blade Changer CLIA: [id number] Erythrocyte Sedimentation Rate (ESR), Automated 8 <26 mm/hr H-TSH Reviewed date:06/16/2024 09:14:56 AM Interpretation:Normal Performing [...] Vaccine Route Administration Date Status Comme nts Tetanus Tdap-Adacel (over 7yrs) IM Intramuscular 12/06/2021 Administered Tetanus Tdap-Adacel (over 7yrs) IM Intramuscular 04/03/2023 Pending Fluzone Quad (6months&older) IM Intramuscular 03/14/2022 Administered Fluzone Quad (6months&older) IM Intramuscular 04/03/2023 Pending COVID 19 Nathalia Unknown 09/29/2020 Administered Problems Problem Type SNOMED Code ICD Code Onset Dates Problem Status W/U Status Risk Notes Problem Gastroesophageal reflux disease (884288563) GERD (gastroesophageal reflux disease) (K21.9) Active confirmed Problem Hypertension (41286908) HTN (hypertension) (I10) Active confirmed Problem Hyperlipidemia (09614269) Hyperlipidemia (E78.5) Active confirmed Problem Vitamin D deficiency (90233759) Vitamin D deficiency (E55.9) Active confirmed Problem Paresthesia (62168643) Paresthesia (R20.2) Active confirmed Problem Mixed anxiety and depressive disorder (029694695) Depression with anxiety (F41.8) Active confirmed Problem Hearing loss (30643825) Hearing loss (H91.90) Active confirmed Problem Amenorrhea (30974359) Amenorrhea (N91.2) Active confirmed Problem Body mass index 40+ - severely obese (401155119) BMI 45.0-49.9, adult (Z68.42) Active confirmed Problem Migraine (88306939) Migraine wit hout status migrainosus, not intractable, unspecified migraine type (G43.909) Active confirmed Problem Anemia (261049726) Anemia, unspecified type (D64.9) Active confirmed Problem Morbid obesity (565034961) Obesity, morbid, BMI 40.0-49.9 (E66.01) Active confirmed Problem Insulin resistance (136499687) Insulin resistance (E88.81) Active confirmed Problem Chronic serous otitis media (76895951) Left chronic serous otitis media (H65.22) Active confirmed Problem Refractory migraine without aura (913660346) Intractable migraine without aura and without status migrainosus (G43.019) Active confirmed Problem Anxiety depression (292693242) Anxiety with depression (F41.8) Active confirmed Problem Major depression, single episode (49310366) Major depressive disorder with current active episode, unspecified depression episode severity, unspecified whether recurrent (F32.9) Active confirmed Vital Signs Heart Rate 77 /min 11/18/2024 Blood pressure diastolic 82 mm Hg 11/18/2024 Height 69.75 in 11/18/2024 Blood pressure systolic 130 mm Hg 11/18/2024 Weight 336 lbs 11/18/2024 BMI 48.55 kg/m2 11/18/2024 Encounters Encounter Location Date Provider Diagnosis [facility] [address] [place], [place] [id number] 02/10/2024 Sulma Amador Bronchitis J40 [facility] [address] [place], [place] [id number] 03/17/2024 Nicci Crowdy Acute URI J06.9 [facility] [address] [facility] [address] [place], [place] [id number] 06/23/2024 Nicci Crowdy Vitamin B12 deficien cy E53.8 [facility] [address] [facility] [address] [place] [id number] 07/01/2024 Nicci Crowdy Acute URI J06.9 [facility] [address] [facility] [address] [place] [id number] 08/19/2024 Nicci Crowdy Polyarthralgia M25.5 0 and Obesity, morbid, BMI 40.0-49.9 E66.01 [facility] [address] [place] [id number] 08/24/2024 Nicci Crowdy [facility] [address] [place] [id number] 11/18/2024 Nicci Crowdy History of mastoidit is Z86.69 [facility] [address] [place] [id number] 03/03/2024 Nicci Crowdy [facility] [address] [place] [id number] 03/04/2024 Nicci Crowdy [facility] [address] [facility] [address] [place] [id number] 05/26/2024 Nicci Baker History of mastoidit is Z86.69 [facility] [address] [place] [id number] 06/02/2024 Nicci Baker [facility] [address] [place], [place] [id number] 06/11/2024 Nicci Willsdarius HTN (hypertension) I 10 ; Iron deficiency E61.1 ; Vitamin D deficiency E55.9 ; Diabetes mellitus screening Z13.1 ; Anemia, unspecified type D64.9 ; Thyroid disorder screen Z13.29 ; Hyperlipidemia E78.5 and Vitamin B12 deficiency E53.8 [facility] [address] [place], [place] [id number] 06/16/2024 Nicci Baker [facility] [address] [place] [id number] 06/16/2024 Nicci Baker [facility] [address] [place], [place] [id number] 07/05/2024 Nicci Baker [facility] [address] [facility] [address] [place] [id number] 08/26/2024 Nicci Baker [facility] [address] [place] [id number] 10/01/2024 Nicci Baker [facility] [address] [facility] [address] [place], [place] [id number] 10/06/2024 Nicci Baker Assessments Encounter Date Diagnosis [...] in to see ENT next week at [facility]. She cannot see Dr. Fabian for [...] Coverage Start Date Coverage End Date DEEJAY [facility] [address] [place] [address] [id number] Karo Colon Self - patient is the insured Medications Administered Medication Instructions Date of Administration Dosage Notes B-12 06/23/2024 1 mL Medical (General) History Medical History History ICD Code Hypertension Insulin Resistance COVID 19- 03/23/2021 chronic OM left eAR left mastoiditis Surgical History Surgery Date(Month/Year) [place] Teeth Extractions 07/2019 01/15/2022 cholecystectomy 03/04/2022 C- Section 05/26/2023 left myringotomy tube placement 11/18/2023 Hospitalization History Reason Date(Month/Year) 05/2023 01/2022
[2025-02-09 14:30] VITALS: BMI 46.1
[2025-02-09 14:56] VITALS: BMI 46.1
[2025-02-09 15:05] LABS: Microscopic, Urine URINE MICROSCOPIC (MICROSCOPIC)
[2025-02-09 15:07] LABS: Hematocrit 33.2 % (37.0-47.0); Hemoglobin 11.0 g/dL (12.2-16.2); Immature Granulocytes % 0.4 %; Mean Corpuscular HGB Conc 33.1 g/dL (31.8-35.4); Mean Corpuscular Hemoglobin 25.5 pg (27.0-31.2); Mean Corpuscular Volume 77.0 fl (81-99); Nucleated Red Blood Cells % 0 %; Platelet Count 218 K/mm3 (142-424); Red Blood Count 4.31 M/mm3 (4.20-5.40); Red Cell Distribution Width-SD 44.8 fL; White Blood Count 7.4 K/mm3 (4.8-10.8)
[2025-02-09 15:10] LABS: Bilirubin,Urine Negative (Negative); Color,Urine YELLOW (Yellow); Glucose,Urine (UA) Negative (Negative); Ketones,Urine Negative (Negative); Leukocyte Esterase,Urine Negative (Negative); PH,Urine 7.0 (5.0-8.5); Protein,Urine Negative (Negative); Specific Gravity, Urine 1.020 (1.005-1.030); Urobilinogen,Urine 0.2 EU/dl (0.2)
[2025-02-09 15:16] LABS: Albumin Level 3.7 g/dl (3.5-5.0); Chloride 107 mmol/L (98-107); Potassium 4.0 mmoL/L (3.5-5.1); Sodium 136 mmol/L (136-145)
[2025-02-09 15:19] LABS: Alanine Aminotransferase 12 U/L (12-78); Albumin/Globulin Ratio 1.2 (1.1-1.8); Alkaline Phosphatase 55 U/L (38-126); Anion Gap 12.0 mEq/L (5-15); Aspartate Amino Transferase 17 U/L (14-36); Bilirubin,Total 0.4 mg/dl (0.2-1.3); Blood Urea Nitrogen 7 mg/dl (7-17); Calcium 9.0 mg/dl (8.4-10.2); Carbon Dioxide 21 mmol/L (22.0-30.0); Creatinine Clearance Estimated 162 mL/min (50-200); Creatinine,Serum 0.60 mg/dl (0.52-1.04); Estimated Glomerular Filt Rate 123 ml/min (>60); GFR (African American) 149 ML/MIN (>60); Globulin 3.0 g/dL (1.3-3.2); Glucose 109 mg/dl (74-100); Total Protein,Serum 6.7 g/dl (6.3-8.2); Uric Acid 3.1 mg/dl (2.5-6.2)
[2025-02-09 15:24] LABS: Activated Partial Thrombo Time 27.6 seconds (22.8-30.6); Fibrinogen 401 mg/dL (229.9-363.5); INR 0.98 (0.9-1.1); Prothrombin Time 10.9 seconds (10.1-12.5)
[2025-02-09 15:36] LABS: Bacteria,Urine 2+ /lpf
== END 2025-02-09 16:02 | disposition home or self-care (01) ==
LOC: OBOUT 14:23 → OB 14:23
PROVIDERS: Obstetrics & Gynecology; PCP Physician Assistant; Visit Provider Obstetrics & Gynecology
DX: Z34.82 Encounter for supervision of other normal pregnancy, second trimester (principal); R60.9 Edema, unspecified; Z3A.22 22 weeks gestation of pregnancy
CPT/HCPCS: 80053; 81001; 82570; 84156; 84550; 85025; 85384; 85610; 85730; 87086

== ENCOUNTER 2025-02-10 08:55 | Outpatient (CLI) | payer BC, SELFPAY ==
--- OUTSIDE RECORDS SUMMARY | 2024-06-23 09:00 | XMS_ITS ---
Author Organization Ashley Address 1210 [facility] [address] [place] [phone] Care Team Providers Care Litigation Claim Representative Name Role Phone Nicci Baker Primary Care [...] Provider Diagnosis Ashley 1210 [facility] [address] [place] [phone] 06/23/2024 Nicci Baker Vitamin B12 deficien cy E53.8 Assessments Encounter Date Diagnosis (ICD Code) Assessment Notes Treatment Notes Treatment Clinical Notes Section Notes 06/23/2024 Vitamin B12 deficiency (ICD-10 - E53.8) Plan Of Treatment No Information Medications Administered Medication Instructions Date of Administration Dosage Notes B-12 06/23/2024 1 mL Progress Notes * Robbi COLONB:2000 (24 yo F)Acc No.[id number]:06/23/2024 Patient: Karo BARRON Provider: MONA He :2000 A ge:23 Y S ex:Female Date:06/23/2024 Phone: Address:[address] [place] [address] Adolfo [place], [id number] Subjective: * Chief Complaints: * 1 . [...] deficiency) * Procedure Codes: J 3420 B-12, 10928 ADMINISTRATION OF INJECTION * Images: Billing Information: * Visit Code: * Procedure Codes: J3420 B-12. 74525 ADMINISTRATION OF INJECTION. * Electronic signature of MONA Jolley on 02/10/2025 at 08:58 AM EDT Sign off status: Pending * Provider: MONA He Date: 0 06/23/2024 Generated for Shantanu wong/Alondra/eTransmitting on: 0 02/10/2025 08:58 AM EDT
--- OUTSIDE RECORDS SUMMARY | 2024-07-01 10:20 | XMS_ITS ---
Author Organization [facility] Address [address] [place] [id number] Care Team Providers Care Mud Jack Operator Name Role Phone Nicci Baker Primary Care Provider [phone] Allergies No Known Allergies Results Component Value [...] 07/01/2024 Encounters Encounter Location Date Provider Diagnosis [facility] [address] [place] [id number] 07/01/2024 Nicci Baker Acute URI J06.9 Assessments [...] Notes * DUNIA, KaroDOB:2000 (24 yo F)Acc No.[id number]:07/01/2024 Progress Notes Patient: Karo BARRON Provider: MONA He :2000 A ge:23 Y S ex:Female Date:07/01/2024 Phone: Address:[address] [place], [place] [id number] Subjective: * Chief Complaints: * 1 . [...] * Procedure Codes: 9 4760 [place], [address] STREP A ASSAY W/OPTIC, Modifiers: QW , 17423 CAPILLARY BLOOD DRAW, 72284 CBC WITH AUTO DIFF, 3074F SYST BP LT 130 MM HG, 3079F DIAST BP 80-89 MM HG * Follow Up: p rn * Images: Billing Information: * Visit Code: 15539 Office Visit, Est Pt., Level 3. * Procedure Codes: 217[address] [place]. [address] STREP A ASSAY W/OPTIC. Modifiers: QW 92768 CAPILLARY BLOOD DRAW. 78310 CBC WITH AUTO DIFF. 3074F SYST BP LT 130 MM HG. 3079F DIAST BP 80-89 MM HG. * Electronic signature of MONA Jolley on 02/10/2025 at 08:59 AM EDT Sign off status: Pending * Provider: MONA He Date: 0 07/01/2024 Generated for Shantanu wong/Alondra/eTransmtamica on: 0 02/10/2025 08:59 AM EDT History and Physical Notes * HPI [...]
--- OUTSIDE RECORDS SUMMARY | 2024-08-19 11:15 | XMS_ITS ---
Author Organization [facility] Address [address] [facility] [address] [place] [id number] Care Team Providers Care Drywall Worker Name Role Phone Iraj Bakera Primary Care Provider [phone] Allergies No Known Allergies Results Component Value [...] Interpretation:Negative Performing Lab: Notes/Report: Test performed by [employer] [facility] [employer] [address], [address], [place] [address] Phoenix Schwarz MD, Rustic Terrazzo Setter CLIA: [id number] B burgdorferi (Lyme Disease) IgG Negative Negative B burgdorferi (Lyme Disease) IgM Negative Negative P-Comprehensive Metabolic Pa gene (CMP) Reviewed date:08/26/2024 02:10:10 PM Interpretation:Glu 101 Performing Lab: Notes/Report: Test performed by [employer] [facility] , [address], [place] [address] Phoenix Schwarz MD, Rustic Terrazzo Setter CLIA: [id number] Sodium 141 135-145 mmol/L Potassium 4.1 3.5-5.3 [...] mg/dL A/G Ratio 1.5 1.1-2.5 P-Arthritis Panel, [facility] Reviewed date:08/26/2024 02:10:10 PM Interpretation:CRP 0.81 Performing Lab: Notes/Report: Test performed by [employer] [address] [facility] , [address], [place] [address] Phoenix Schwarz MD, Rustic Terrazzo Setter CLIA: [id number] Rheumatoid Factor <10 <14.1 IU/mL C-Reactive Protein (CRP) 0.81 <0.50 mg/dL Antinuclear Antibodies (EVER) Screen, Reflex EVER 9 Panel Negative Negative This test is performed by Multiplex Bead Immunoassay methodology. Antinuclear Antibodies (EVER) Result Note SEE COMMENT For positive Autoantibodies, please refer to the interpretive chart here: [email or web address] p-content/uploads/EVER-Inter pretive-Chart.pdf CCP Antibodies <0.5 <0.5-3.0 U/mL [...] W/U Status Risk Notes Problem Morbid obesity (445646943) Obesity, morbid, BMI 40.0-49.9 (E66.01) Active confirmed Vital Signs Blood pressure systolic 130 mm Hg 08/20/19 25 Blood pressure diastolic 80 mm Hg 025 Heart Rate 100 /min 08/19/2024 Height 69.75 in 08/19/2024 Weight 335 lbs 08/19/2024 BMI 48.41 kg/m2 08/19/2024 Encounters Encounter Location Date Provider Diagnosis [facility] [address] [facility] [address] [place] [address], [place] [phone] 08/19/2024 Nicci Baker Polyarthralgia M25.5 0 and [...] Notes * Karo COLONDOB:2000 (24 yo F)Acc No.[id number]:08/19/2024 Progress Notes Patient: Karo BARRON Provider: MONA He :2000 A ge:23 Y S ex:Female Date:08/19/2024 Phone: Address:[address] [place], [place] [address]Adolfo [facility] Subjective: * Chief Complaints: * 1 . [...] Flu Test- Nasal Swab, Modifiers: QW , 74241 CBC WITH AUTO DIFF, 26670 VENIPUNCT, ROUTINE*, 3075F SYST BP GE 130 - 139MM HG, 3079F DIAST BP 80-89 MM HG * Follow Up: v ia phone to report test results * Images: Billing Information: * Visit Code: 25261 Office Visit, Est Pt., Level 3. * Procedure Codes: 75007 Flu Test- Nasal Swab. Modifiers: QW 72825 CBC WITH AUTO DIFF. 21148 VENIPUNCT, ROUTINE*. 3075F SYST BP GE 130 - 139MM HG. 3079F DIAST BP 80-89 MM HG. * Electronic signature of MONA Jolley on 02/10/2025 at 08:58 AM EDT Sign off status: Pending * Provider: MONA He Date: 0 08/19/2024 Generated for Shantanu wong/Alondra/Richarditting on: 0 02/10/2025 08:58 AM EDT History and Physical Notes * [...]
--- OUTSIDE RECORDS SUMMARY | 2024-08-24 04:55 | XMS_ITS ---
Author Organization [facility] Address [address] [facility] [address] [place] [phone] Care Team Providers Care Information Systems Analyst Name Role Phone Nicci Baker Primary Care Provider [phone] REASON FOR VISIT Lab Draw Encounters Encounter Location Date Provider Diagnosis [facility] [address] [place] [id number] 08/24/2024 Nicci Baker Plan Of Treatment No Information Progress Notes * Karo COLONDOB:2000 (24 yo F)Acc No.[id number]:08/24/2024 Patient: Shoaib BARRONssica Provider: MONA He :2000 A ge:23 Y S ex:Female Date:08/24/2024 Phone: Address:[place] Subjective: * Chief Complaints: * 1 . Lab Draw. * Medical History: Objective: * Vitals: Assessment: Plan: * Treatment: * Images: Billing Information: * Visit Code: * Procedure Codes: * Electronic signature of MONA Jolley on 02/10/2025 at 08:59 AM EDT Sign off status: Pending * Provider: MONA He Date: 0 08/24/2024 Generated for Shantanu ng/Faclarissa/eTransmitting on: 0 02/10/2025 08:59 AM EDT
--- OUTSIDE RECORDS SUMMARY | 2024-11-18 12:00 | XMS_ITS ---
Author Organization Ashley Address 1210 [facility] [address] [place] [id number] Care Team Providers Care Bit Sander Name Role Phone Nicci Baker Primary Care Provider [phone] Allergies No Known Allergies REASON FOR VISIT [...] Encounter Location Date Provider Diagnosis [facility] [address] [place] [id number] 11/18/2024 Nicci Baker History of mastoidit is Z86.69 Assessments Encounter Date Diagnosis (ICD Code) Assessment Notes Treatment Notes Treatment Clinical Notes Section Notes 11/18/2024 History of mastoiditis (ICD-10 - Z86.69) Patient is going to try to get in to see ENT next week at [facility] [place] [facility]. She cannot see Dr. Fabian for 3 weeks. Plan Of Treatment Medication Medication Name Sig Start Date Stop Date Notes Cefdinir 300 MG 1 cap(s) Orally Two times a day; Duration: 10 days 11/18/2024 Treatment Notes Assessment Notes History of mastoiditis Patient is going to try to get in to see ENT next week at [facility] [place] [facility]. She cannot see Dr. Fabian for 3 weeks. Next Appt Details Follow Up: with ENT, Reason: Progress Notes * Karo COLONDOB:2000 (24 yo F)Acc No.[id number]:11/18/2024 Progress Notes Patient: Karo BARRON Provider: MONA He :2000 A ge:23 Y S ex:Female Date:11/18/2024 Phone: Address:[address] [place], [place] [address], [id number] Subjective: * Chief Complaints: * 1 . [...] < 90MM HG * Follow Up: w [facility] ENT * Images: Billing Information: * Visit Code: 10740 Office Visit, Est Pt., Level 3. * Procedure Codes: 1036F TOBACCO NON-USER. G8783 BP SCR PRFRM RCMDD DEFIND SCR INTVL. G8752 MOST RECENT SYSTOLIC BP < 140MM HG. G8754 MOST RECENT DIASTOLIC BP < 90MM HG. * Electronic signature of MONA Jolley on 02/10/2025 at 08:59 AM EDT Sign off status: Pending * Provider: MONA He Date: 0 11/18/2024 Generated for Shantanu wong/Alondra/eTsandysmitting on: 0 02/10/2025 08:59 AM EDT History [...]
--- OUTSIDE RECORDS SUMMARY | 2025-02-10 08:58 | XMS_ITS | Clinical Summary ---
Author Organization [facility] Address [address] [place] [address] Phone Care Team Providers Care Director Health Name Role Phone Jasmeet SANTIAGO, Bhavana Maynard Unavailable Conditions or Problems Problem Name Problem Code Onset Date Status Entry Date Provider Comment Standard Description Annotate Ear pain, left 3686277389 (SNOMED CT) 06/01 Active 06/01 Cesar Argueta MD Otalgia of left ear Acute mastoiditis, left 436358079 (SNOMED CT) 06/01 Active 06/01 Cesar Argueta MD Acute mastoiditis Screening for HIV 432898367 (SNOMED CT) 12/17 Active 12/17 Gorge Handy Procedure carried out on subject Acute recurrent suppurative otitis media, left 046497132 (SNOMED CT) 12/04 Active 12/04 Sasha Malik Recurrent acute suppurative otitis media Acute recurrent serous otitis media, left 926456727 (SNOMED CT) 12/03 Active 12/03 Sasha Malik Acute non-suppurat gokul serous otitis media Serratia marcescens infection B96.89 (ICD-10-CM) 12/03 Active 12/03 Cesar Argueta MD Other specified bacterial agents as the cause of diseases classified elsewhere Facial swelling 997614288 (SNOMED CT) 12/03 Active 12/03 Aida Argueta Facial swelling Recurrent otitis media (ROM) 3954361143581 104 (SNOMED CT) 12/03 Inactive 12/03 Aida Argueta Otitis media of right ear Chronic mastoiditis, left 22546249 (SNOMED CT) 12/03 Active 12/03 Lydia Medrano Chronic mastoiditis Medications Medication Instructions Start Date Stop Date Generic Name NDC Provider ceftriaxone recon kikanoemi Rocephin 2gm IV Q 24hrs/ OPAT 06/01 ceftriaxone recon katy espana recon solnoemi Rocephin 2gm IV Q 24hrs INPAT 06/01 ceftriaxone recon katy Gonzales METRONIDAZOLE 500 MG TABS Take 1 tablet by mouth three times a day 06/01 metronidazole 44631000377 Cesar Argueta MD WEGOVY 0.5 MG/0.5ML SOAJ 06/01 semaglutide (weight loss) 65414277386 Lynn Jarvis HYDROCHLOROTHIAZIDE 12.5 MG TABS 06/01 hydrochlorothiazide 23786573324 [facility] VENLAFAXINE HCL 37.5 MG TABS 06/01 venlafaxine 10019219373 [facility] PRISTIQ 100 MG YL13D-PMH once a day desvenlafaxine succinate 07430331339 [facility] ZOSYN 4-0.5 GM/100ML SOLN Q 8 hrs/OPAT 01/26 piperacillin-tazoba ctam-dextrs 50612878979 Bhavana Alamo RN WEGOVY 0.5 MG/0.5ML SOAJ 06/01 semaglutide (weight loss) 61537055466 Farrah Gunjan VENLAFAXINE HCL 37.5 MG TABS 06/01 venlafaxine 75526727319 Farrah Gunjan HYDROCHLOROTHIAZIDE 12.5 MG TABS 01/21 hydrochlorothiazide 24262957601 Farrah Gunjan Medications Administered No information available. [...] Procedures Code Procedure Name Date Entry Date CPT-96080 CMP [id number] CBC with Differential 2024 CPT-57583 C- reactive protein CPT-27292 Sedimentation Rate (ESR) 202 09/17/27 CPT-36790 CMP [id number] CBC with Differential 2024 CPT-64324 C- reactive protein CPT-44994 Sedimentation Rate (ESR) 09/16/20 CPT-sl STAT Labs [id number] CBC with Differential 2024 CPT-39387 CMP CPT-95908 C- reactive protein CPT-06077 Sedimentation Rate (ESR) 09/17/15 CPT- stat weekly Stat Weekly Labs CPT-86877 X-Ray, Chest (PICC Placement only) 06/02 CPT-45755 CMP [id number] CBC with Differential 2024 CPT-51606 C- reactive protein CPT-97565 Sedimentation Rate (ESR) 09/16/13 CPT-sl STAT Labs CPT-sl STAT Labs CPT-sl STAT Labs CPT-32465 CMP [id number] CBC with Differential 2023 CPT-44469 C- reactive protein CPT-38994 Sedimentation Rate (ESR) 08/24/14 CPT-sl STAT Labs CPT-sl STAT Labs CPT-28211 CMP [id number],[id number] CBC with Differential 2023 CPT-54043 C- reactive protein CPT-81832 Sedimentation Rate (ESR) 202 08/23/24 CPT- stat weekly Stat Weekly Labs CPT-sl STAT Labs CPT-sl STAT Labs CPT-63757 CMP [id number] CBC with Differential 2023 CPT-55364 C- reactive protein CPT-12001 Sedimentation Rate (ESR) 202 08/23/17 Vital Signs [...]
--- OUTSIDE RECORDS SUMMARY | 2025-02-10 08:58 | XMS_ITS | Clinical Summary ---
Author Organization [facility] Address [address] [id number] Care Team Providers Care Pet Feeder Name Role Phone Nicci Baker Primary Care Provider [phone] Social History Tobacco Use Types Packs/Day Years [...] patient's age to complete this topic Insurance 441PAIGE BEDOYA [id number] [facility] PPO Member Subscriber Plan / Payer (Ef fective 2023-Present) Name:Karo Colon Relation to Subscriber:Spouse Name:FAVIAN COLON Date of :1998 (Home) Address: [address] [place], [place] [address] [address] Payer ID:[id number] (NAIC) Type:Not on file Address: [address] [place] [id number] Care Teams Pet Feeder Relationship Specialty Start Date End Date Nicci Baker PA [address] [facility] [id number] PCP - General Physician Bed Worker 12/04/23
--- OUTSIDE RECORDS SUMMARY | 2025-02-10 09:00 | XMS_ITS | Patient Health Record ---
Author [facility] Address [address] [place] [id number] Care Team Providers Care Hog Worker Name Role Phone Nicci Baker Primary Care Provider [phone] Allergies No Known Allergies Results Component Value [...] Interpretation:Negative Performing Lab: Notes/Report: Test performed by [facility] [address] [place] [address] Phoenix Schwarz MD, Occupational Therapy Specialist CLIA: [id number] B burgdorferi (Lyme Disease) IgG Negative Negative B burgdorferi (Lyme Disease) IgM Negative Negative P-Comprehensive Metabolic Pa gene (CMP) Reviewed date:08/26/2024 02:10:10 PM Interpretation:Glu 101 Performing Lab: Notes/Report: Test performed by [facility] [address] [place] [address] [address], [place] [address] Phoenix Schwarz MD, Occupational Therapy Specialist CLIA: [id number] Sodium 141 135-145 mmol/L Potassium 4.1 3.5-5.3 [...] 0.81 Performing Lab: Notes/Report: Test performed by [facility] [address] [place] [address] [address], [place] [address] Phoenix Schwarz MD, Occupational Therapy Specialist CLIA: [id number] Rheumatoid Factor <10 <14.1 IU/mL C-Reactive Protein (CRP) 0.81 <0.50 mg/dL Antinuclear Antibodies (EVER) Screen, Reflex EVER 9 Panel Negative Negative This test is performed by Multiplex Bead Immunoassay methodology. Antinuclear Antibodies (EVER) Result Note SEE COMMENT For positive Autoantibodies, please refer to the interpretive chart here: [email or web address] CCP Antibodies <0.5 <0.5-3.0 U/mL Erythrocyte Sedimentation Rate (ESR), Automated Specimen received beyond stability.. Test cannot be performed. Acceptable stability from collection is [24 hours]. P-Sed Rate (ESR) Reviewed date:08/26/2024 02:10:10 PM Interpretation:8 Performing Lab: Notes/Report: Test performed by [facility] [address] [place] [address] , [address], [place] [address] Phoenix Schwarz MD, Occupational Therapy Specialist CLIA: [id number] Erythrocyte Sedimentation Rate (ESR), Automated 8 <26 mm/hr CBC Fingerstick (in house) Reviewed date:03/17/2024 02:55:29 [...] Performing Lab: Notes/Report: FE 44 37-170 ug/dL CT scan : Temporal bones w/ and w/o IV contrast Reviewed date:05/26/2024 02:38:23 PM Interpretation:not performed due to insurance Performing Lab: Notes/Report: not performed due to insurance Reason For Referral No Information Medications Medication [...] Status Risk Notes Problem Gastroesophageal reflux disease (393634386) GERD (gastroesophageal reflux disease) (K21.9) Active confirmed Problem Hypertension (22792898) HTN (hypertension) (I10) Active confirmed Problem Hyperlipidemia (76791773) Hyperlipidemia (E78.5) Active confirmed Problem Vitamin D deficiency (76850399) Vitamin D deficiency (E55.9) Active confirmed Problem Paresthesia (32831135) Paresthesia (R20.2) Active confirmed Problem Mixed anxiety and depressive disorder (469782196) Depression with anxiety (F41.8) Active confirmed Problem Hearing loss (29916480) Hearing loss (H91.90) Active confirmed Problem Amenorrhea (70842332) Amenorrhea (N91.2) Active confirmed Problem Body mass index 40+ - severely obese (840572480) BMI 45.0-49.9, adult (Z68.42) Active confirmed Problem Migraine (98479022) Migraine wit hout status migrainosus, not intractable, unspecified migraine type (G43.909) Active confirmed Problem Anemia (414343407) Anemia, unspecified type (D64.9) Active confirmed Problem Morbid obesity (698886398) Obesity, morbid, BMI 40.0-49.9 (E66.01) Active confirmed Problem Insulin resistance (830936788) Insulin resistance (E88.81) Active confirmed Problem Chronic serous otitis media (80133867) Left chronic serous otitis media (H65.22) Active confirmed Problem Refractory migraine without aura (693176781) Intractable migraine without aura and without status migrainosus (G43.019) Active confirmed Problem Anxiety depression (065779860) Anxiety with depression (F41.8) Active confirmed Problem Major depression, single episode (14240947) Major depressive disorder with current active episode, unspecified depression episode severity, unspecified whether recurrent (F32.9) Active confirmed Vital Signs Heart Rate 77 /min 11/18/2024 Blood pressure diastolic 82 mm Hg 11/18/2024 Height 69.75 in 11/18/2024 Blood pressure systolic 130 mm Hg 11/18/2024 Weight 336 lbs 11/18/2024 BMI 48.55 kg/m2 11/18/2024 Encounters Encounter Location Date Provider Diagnosis [facility] [address] [place] [id number] 03/17/2024 Nicci Baker Acute URI J06.9 [facility] [address] [place], [place] [id number] 06/23/2024 Nicci Crowdy Vitamin B12 deficien cy E53.8 [facility] [address] [place] [id number] 07/01/2024 Nicci Crowdy Acute URI J06.9 [facility] [address] [place] [id number] 08/19/2024 Nicci Crowdy Polyarthralgia M25.5 0 and Obesity, morbid, BMI 40.0-49.9 E66.01 [facility] [address] [place] [id number] 08/24/2024 Nicci Crowdy [facility] [address] [place] [id number] 11/18/2024 Nicci Crowdy History of mastoidit is Z86.69 [facility] [address] [facility] [address] [place] [id number] 03/03/2024 Nicci Crowdy [facility] [address] [place] [id number] 03/04/2024 Nicci Crowdy [facility] [address] [place], [place] [id number] 05/26/2024 Nicci Crowdy History of mastoidit is Z86.69 [facility] [address] [place] [id number] 06/02/2024 Nicci Crowdy [facility] [address] [place], [place] [id number] 06/11/2024 Nicci Crowdy HTN (hypertension) I 10 ; Iron deficiency E61.1 ; Vitamin D deficiency E55.9 ; Diabetes mellitus screening Z13.1 ; Anemia, unspecified type D64.9 ; Thyroid disorder screen Z13.29 ; Hyperlipidemia E78.5 and Vitamin B12 deficiency E53.8 [facility] [address] [place] [id number] 06/16/2024 Nicci Crowdy [facility] [address] [place] [id number] 06/16/2024 Nicci Crowdy [facility] [address] [place] [id number] 07/05/2024 Nicci Johanndy [facility] [address] [place] [id number] 08/26/2024 Nicci Johanndy [facility] [address] [place] [id number] 10/01/2024 Nicci Johanndy [facility] [address] [place] [id number] 10/06/2024 Nicci Johanndy Assessments Encounter Date Diagnosis [...] in to see ENT next week at [facility]. She cannot see Dr. Fabian for 3 [...] Coverage Start Date Coverage End Date DEEJAY PALOMINO [id number] [place] [address] [id number] Karo Colon Self - patient is the insured Medications Administered Medication Instructions Date of Administration Dosage Notes B-12 06/23/2024 1 mL Medical (General) History Medical History History ICD Code Hypertension Insulin Resistance COVID 19- 03/23/2021 chronic OM left eAR left mastoiditis Surgical History Surgery Date(Month/Year) [place] Teeth Extractions 07/2019 01/15/2022 cholecystectomy 03/04/2022 C- Section 05/26/2023 left myringotomy tube placement 11/18/2023 Hospitalization History Reason Date(Month/Year) 05/2023 01/2022
--- NOTE | 2025-02-10 09:15 | US_ITS ---
PROCEDURE: US OB FOLLOW UP CLINICAL INDICATION: cardiac views COMPARISON: US US OB /MATERNAL DETAIL from 01/24/2025 FINDINGS: Transabdominal sonographic images of the pelvis were obtained. The following parameters are obtained: From her established due date she is 22weeks 3days Viable fetus in the breech presentation with a posterior placenta grade 1. The cervix measures 3.0 cm heart rate: 142bpm bpm. BPD: 22weeks 2days HC: 22weeks AC: 23weeks FL: 23weeks 1day HC/AC: 1.1 FL/BPD: 0.76 FL/AC: 0.23 Growth percentile: 65 Amniotic fluid: MVP 3.45 cm No obvious anomalies evident. profile seen, stomach, bladder, kidneys, three-vessel cord, four chamber heart appear normal. cardiac scan: Four-chamber heart, three-vessel view, LVOT, RVOT, appear normal. IMPRESSION: 1. Viable fetus in the breech presentation with a posterior placenta grade 1. 2. The fluid is within normal limits with an MVP 3.45 cm. 3. cardiac scan today appears normal. 4. Limited anatomical scan appears normal. 5. biometry is consistent with a dates. Dictated by: Donnie Oliver MD 02/10/2025 15:54 Donnie Oliver MD in [facility] 02/10/2025 15:54
== END 2025-02-10 23:59 | disposition home or self-care (01) ==
LOC: RAD 08:56
PROVIDERS: PCP Obstetrics & Gynecology; Visit Provider Obstetrics & Gynecology
DX: O32.1XX0 Maternal care for breech presentation, not applicable or unspecified (principal); O10.912 Unspecified pre-existing hypertension complicating pregnancy, second trimester; O09.292 Supervision of pregnancy with other poor reproductive or obstetric history, second trimester; O99.212 Obesity complicating pregnancy, second trimester; E66.9 Obesity, unspecified; Z3A.22 22 weeks gestation of pregnancy
CPT/HCPCS: 76816

== ENCOUNTER 2025-03-13 20:17 | Outpatient (CLI) | payer BC, SELFPAY ==
--- OUTSIDE RECORDS SUMMARY | 2024-01-22 05:45 | XMS_ITS ---
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 Over Name Role Phone Nicci Baker Primary Care Provider Allergies No Known Allergies Results Component Value Reference Range Notes Rapid Strep- Inhouse Reviewed date:01/22/2024 09:29:34 AM Interpretation:Negative Performing Lab: Notes/Report: Negative strep test neg CBC Fingerstick (in house) Reviewed date:01/22/2024 09:29:43 AM Interpretation: Performing Lab: Notes/Report: wbc 9.7 3.5 - 10 lym 14.9 15 - 50 mid 4.2 2 - 15 gran 80.9 35 - 80 rbc 4.85 3.5 - 5.5 hgb 11.8 11.5 - 16.5 hct 35.3 35 - 55 mcv 72.7 75 - 100 mch 24.4 25 - 35 mchc 33.6 31 - 38 plat 265 100 - 400 REASON FOR VISIT sore throat Medications Medication SIG (Take, Route, Frequency, Duration) Notes Start Date End Date Status Vitamin D3 125 MCG (5000 UT) 1 capsule O rally Once a day; Duration: 30 day(s) 09/26/2023 Active Wegovy 1.7 MG/0.75ML 0.75 mL Subcutaneou s once a week; Duration: 28 days 12/08/2023 Active Venlafaxine HCl ER 75 MG 1 capsule with food Orally Once a day; Duration: 30 day(s) 01/07/2024 Active Vitamin B12 1000 MCG 1 tablet Orally Onc e a day 09/26/2023 Active Ferrous Sulfate 325 (65 Fe) MG 1 tablet Orally once daily 09/26/2023 Active hydroCHLOROthiazide 12.5 MG 1 capsule in the morning Orally Once a day; Duration: 90 days 06/02/2023 Active Zosyn 4-0.5 GM/100ML 100 mL Intravenous every 8 hrs Active Zithromax Z-Jacob 250 MG 2 pills first day then one daily for 4 days orally as directed; Duration: 5 days 01/22/2024 Active Vraylar 1.5 MG 1 capsule Orally Once a day; Duration: 30 day(s) 01/07/2024 Active Ondansetron HCl 8 MG 1 tab(s) Orally every 8 hours prn 05/28/2021 Not-Taking Vital Signs Weight 322 lbs 01/22/2024 Blood pressure systolic 114 mm Hg 01/22/20 24 Blood pressure diastolic 70 mm Hg 024 Heart Rate 100 /min 01/22/2024 Height 69.75 in 01/22/2024 BMI 46.53 kg/m2 01/22/2024 Encounters Encounter Location Date Provider Diagnosis [facility] [address] [facility] [address] [place], [place] [address] teran [phone] 01/22/2024 Nicci Baker Acute pharyngitis du e to other specified organisms J02.8 and Other specified bacterial agents as the cause of diseases classified elsewhere B96.89 Assessments Encounter Date Diagnosis (ICD Code) Assessment Notes Treatment Notes Treatment Clinical Notes Section Notes 01/22/2024 Acute pharyngitis due to other specified organisms (ICD-10 - J02.8) 01/22/2024 Other specified bacterial agents as the cause of diseases classified elsewhere (ICD-10 - B96.89) Plan Of Treatment Medication Medication Name Sig Start Date Stop Date Notes Zithromax Z-Jacob 250 MG 2 pills first day then one daily for 4 days orally as directed; Duration: 5 days 01/22/2024 Next Appt Details Follow Up: prn, Reason: Progress Notes * Karo COLONDOB:2000 (24 yo F)Acc No.[id number]:01/22/2024 Progress Notes Patient: Karo BARRON Provider: MONA He :2000 A ge:23 Y S ex:Female Date:01/22/2024 Phone: Address:[address] [place], [place] [address], [id number] Subjective: * Chief Complaints: * 1 . Sore throat. * HPI: E NT/respiratory: 23 year old female presents with c/o sore throat f or 2 days P t sts she can see white spots on her throat and that it does feel scratchy and hurts to swollow. c/o ear pain b ilateral, left more than right. Denies : cough. D enies : nasal congestion. * ROS: D ERMATOLOGY: no R regino. n o H tashi. G ASTROENTEROLOGY: no N ausea. n o V omiting. n o D iarrhea.? U ROLOGY: no D ifficulty urinating. n o B lood in urine. * Medical History: H ypertension, Insulin Resistance, COVID 19- 03/23/2021, chronic OM left eAR, Left mastoiditis. * Surgical History: W isdom Teeth Extractions 07/2019, 01/15/2022, cholecystectomy 03/04/2022, C- Section 05/26/2023, left myringotomy tube placement 11/18/2023. * Hospitalization/Major Diagno stic Procedure: C -Section 01/2022, 05/2023. * Family History: F ather: alive 48 yrs. M other: alive 47 yrs. P aternal Grand Father: , diagnosed with Diabetes. P aternal Grand Mother: 62 yrs, diagnosed with Hypertension, Heart Disease, Stroke. M aternal Grand Father: alive 71 yrs. M aternal Grand Mother: 62 yrs, Pulmonary Hypertension, diagnosed with Hypertension. S iblings: alive. 1 brother(s) - healthy. 1 son(s) , 1 daughter(s) - healthy. . Maternal Grandmother passed from Double Lung Transplant. * Social History: C URRENT TOBACCO USE: No . C affeine: yes, frequency:. Home smoke detector use: yes. Marital Status: . Alcohol: yes, 1-2 drinks a month. * Medications: T aking Zosyn 4-0.5 GM/100ML Solution 100 mL Intravenous every 8 hrs , Taking hydroCHLOROthiazide 12.5 MG Capsule 1 capsule in the morning Orally Once a day , Taking Vitamin D3 125 MCG (5000 UT) Capsule 1 capsule Orally Once a day , Taking Vitamin B12 1000 MCG Tablet Extended Release 1 tablet Orally Once a day , Taking Ferrous Sulfate 325 (65 Fe) MG Tablet Delayed Release 1 tablet Orally once daily , Taking Wegovy 1.7 MG/0.75ML Solution Auto-injector 0.75 mL Subcutaneous once a week , Taking Venlafaxine HCl ER 75 MG Capsule Extended Release 24 Hour 1 capsule with food Orally Once a day , Taking Vraylar 1.5 MG Capsule 1 capsule Orally Once a day , Not-Taking Ondansetron HCl 8 MG Tablet 1 tab(s) Orally every 8 hours prn , Medication List reviewed and reconciled with the patient * Allergies: N .K.D.A. Objective: * Vitals: W t:322, Temp:98.6, BP:114/70, HR:100, Nurse:valentino, Ht: 69.75, BMI:46.53. * Examination: E NT/Respiratory: General Appearance: N AD. E ars: a uditory canals normal bilaterally, TM's WNL. N ose : n ormal, no lesions, nares patent. S inuses : non tender bilaterally. O ral cavity : erythema without exudate on pharynx, erythema with exudate on tonsils. N ramón : n o cervical lymphadenopathy. H eart : R RR, normal S1 S2, no murmurs. L ungs: c lear to auscultation bilaterally. Assessment: * Assessment: 1. A cute pharyngitis due to other specified organisms - J02.8 (Primary) 2 .?Other specified bacterial agents as the cause of diseases classified elsewhere - B96.89 ? Plan: * Treatment: Value Reference Range s trep test neg * Karo Colon 01/22/2024 8:07: 52 AM > Provider reviewed results while patient in office.Nicci Baker 01/22/2024 9:29:31 AM > ?LAB: CBC Fingerstick (in house) (Collection Date & Time - 01/22/2024)* Value Reference Range w bc 9.7 3.5 - 10 * l ym 14.9 15 - 50 * m id 4.2 2 - 15 * g ran 80.9 35 - 80 * r bc 4.85 3.5 - 5.5 * h gb 11.8 11.5 - 16.5 * h ct 35.3 35 - 55 * m cv 72.7 75 - 100 * m ch 24.4 25 - 35 * m chc 33.6 31 - 38 * p lat 265 100 - 400 * Karo Colon 01/22/2024 9:23: 54 AM > Provider reviewed results while patient in office.Nicci Baker 01/22/2024 9:29:41 AM > * Procedure Codes: 8 7880 STREP A ASSAY W/OPTIC, Modifiers: QW , 50550 CAPILLARY BLOOD DRAW, 33104 CBC WITH AUTO DIFF * Follow Up: p rn * Images: Billing Information: * Visit Code: 37875 Office Visit, Est Pt., Level 3. * Procedure Codes: 15281 STREP A ASSAY W/OPTIC. Modifiers: QW 51858 CAPILLARY BLOOD DRAW. 85759 CBC WITH AUTO DIFF. * Electronic signature of MONA Jolley on 03/13/2025 at 08:22 PM EDT Sign off status: Pending * Provider: MONA He Date: 0 01/22/2024 Generated for Printi ng/Faxing/eTransmitting on: 1 08:22 PM EDT History and Physical Notes * HPI (History of Present Illness) Category Sub-Category Detail Notes Category Not es ENT/respiratory sore throat Pt sts she can s ee white spots on her throat and that it does feel scratchy and hurts to swollow ear pain bilateral, left more than right cough nasal congestion Examination Category Sub-Category Detail Notes Category Not es ENT/Respiratory Oral cavity : erythema without exudate on pharynx, erythema with exudate on tonsils Sinuses : non tender bilateral ly Ears: auditory canals norm al bilaterally, TM's WNL Neck : no cervical lymphade nopathy Heart : RRR, normal S1 S2, n o murmurs Lungs: clear to auscultatio n bilaterally General Appearance: NAD Nose : normal, no lesions, nares patent
--- OUTSIDE RECORDS SUMMARY | 2024-02-10 05:30 | XMS_ITS ---
[facility] Address [address] [place] [id number] Care Team Providers Care Log Hooker Name Role Phone Nicci Baker Primary Care Provider Sulma Amador Unavailable [phone] Allergies No Known Allergies Results Component Value [...] 02/10/2024 Encounters Encounter Location Date Provider Diagnosis [facility] [address] [phone] 02/10/2024 Sulma Amador Bronchitis J4 0 Assessments [...] Notes * Karo COLONDOB:2000 (24 yo F)Acc No.[id number]:02/10/2024 Progress Notes Patient: Tiera BARRONica Provider: SMITH Talley :2000 A ge:23 Y S ex:Female Date:02/10/2024 Phone: Address:[address] [place] [address] [place], [id number] Pcp:Nicci Baker Subjective: * Chief Complaints: * [...] Date & Time - 02/10/2024)? Abnormal; Rhinovirus* Sue Amadorine 02/13/2024 8:49:27 AM > I spoke with Karo and reported results Notes: fluids, rest, supportive measures for fever/symptom relief; will try Mucinex DM and airsuprainhaler?? * Procedure Codes: 3 6416 CAPILLARY BLOOD DRAW, 19005 CBC WITH AUTO DIFF * Follow Up: p rn * Images: Billing Information: * Visit Code: 12779 Office Visit, Est Pt., Level 3. * Procedure Codes: 10011 CAPILLARY BLOOD DRAW. 24144 CBC WITH AUTO DIFF. * Electronic signature of Lucy zamora Perry , JEFF on 03/13/2025 at 08:21 PM EDT Sign off status: Pending * Provider: SMITH Talley Date: 0 02/10/2024 Generated for Printi ng/Faxing/eTransmitting on: 1 08:21 PM EDT History and Physical Notes * [...]
--- OUTSIDE RECORDS SUMMARY | 2024-03-17 09:15 | XMS_ITS ---
Author [facility] [address] [place] [phone] Care Team Providers Care Claims Account Specialist Name Role Phone Nicci Baker Primary Care [...] 03/17/2024 Encounters Encounter Location Date Provider Diagnosis [facility] [address] [facility] [address] [place] [phone] 03/17/2024 Nicci Samuel Acute URI J06.9 Assessments [...] Notes * DUNIA, ShoaibabiliokizzyDOB:2000 (24 yo F)Acc No.[id number]:03/17/2024 Progress Notes Patient: Karo BARRON Provider: MONA He :2000 A ge:23 Y S ex:Female Date:03/17/2024 Phone: Address:[address] [place], [place] [address] Subjective: * Chief Complaints: * 1 . [...] Procedure Codes: 3 6416 CAPILLARY BLOOD DRAW, 47736 CBC WITH AUTO DIFF * Follow Up: p rn * Images: Billing Information: * Visit Code: 27139 Office Visit, Est Pt., Level 3. * Procedure Codes: 27479 CAPILLARY BLOOD DRAW. 06269 CBC WITH AUTO DIFF. * Electronic signature of MONA Jolley on 03/13/2025 at 08:20 PM EDT Sign off status: Pending * Provider: MONA He Date: Generated for Printi ng/Faxing/eTransmitting on: 08:20 PM EDT History and Physical Notes * [...]
--- OUTSIDE RECORDS SUMMARY | 2024-06-23 09:00 | XMS_ITS ---
Author Organization Ashley Address 1210 [facility] [address] [place] [phone] Care Team Providers Care Supervisor Vendor Quality Name Role Phone Nicci Baker Primary Care [...] Location Date Provider Diagnosis Ashley 1210 [facility] [address] [place] [phone] 06/23/2024 Nicci Baker Vitamin B12 deficien cy E53.8 Assessments Encounter Date Diagnosis (ICD Code) Assessment Notes Treatment Notes Treatment Clinical Notes Section Notes 06/23/2024 Vitamin B12 deficiency (ICD-10 - E53.8) Plan Of Treatment No Information Medications Administered Medication Instructions Date of Administration Dosage Notes B-12 06/23/2024 1 mL Progress Notes * Robbi COLONB:2000 (24 yo F)Acc No.[id number]:06/23/2024 Patient: Karo BARRON Provider: MONA He :2000 A ge:23 Y S ex:Female Date:06/23/2024 Phone: Address:[address] [place] [address] [place], [id number] Subjective: * Chief Complaints: * 1 . [...] deficiency) * Procedure Codes: J 3420 B-12, 25662 ADMINISTRATION OF INJECTION * Images: Billing Information: * Visit Code: * Procedure Codes: J3420 B-12. 48614 ADMINISTRATION OF INJECTION. * Electronic signature of MONA Jolley on 03/13/2025 at 08:21 PM EDT Sign off status: Pending * Provider: MONA He Date: 0 06/23/2024 Generated for Shantanu wong/Alondra/eTransmitting on: 1 08:21 PM EDT
--- OUTSIDE RECORDS SUMMARY | 2024-07-01 10:20 | XMS_ITS ---
Author Organization [facility] Address [address] [place] [phone] Care Team Providers Care Dry Wall Nailer Name Role Phone Nicci Baker Primary Care [...] 07/01/2024 Encounters Encounter Location Date Provider Diagnosis [facility] [address] [place] [phone] 07/01/2024 Nicci Baker Acute URI J06.9 Assessments [...] Notes * DUNIA, KaroDOB:2000 (24 yo F)Acc No.[id number]:07/01/2024 Progress Notes Patient: Karo BARRON Provider: MONA He :2000 A ge:23 Y S ex:Female Date:07/01/2024 Phone: Address:[address] [place], [place] [address], [place] Subjective: * Chief Complaints: * 1 . [...] * Procedure Codes: 9 4760 [place], [address] STREP A ASSAY W/OPTIC, Modifiers: QW , 60578 CAPILLARY BLOOD DRAW, 75789 CBC WITH AUTO DIFF, 3074F SYST BP LT 130 MM HG, 3079F DIAST BP 80-89 MM HG * Follow Up: p rn * Images: Billing Information: * Visit Code: 98766 Office Visit, Est Pt., Level 3. * Procedure Codes: [address] [place]. [address] STREP A ASSAY W/OPTIC. Modifiers: QW 87841 CAPILLARY BLOOD DRAW. 13846 CBC WITH AUTO DIFF. 3074F SYST BP LT 130 MM HG. 3079F DIAST BP 80-89 MM HG. * Electronic signature of MONA Jolley on 03/13/2025 at 08:21 PM EDT Sign off status: Pending * Provider: MONA He Date: 0 07/01/2024 Generated for Shantanu wong/Alondra/eTelma on: 1 08:21 PM EDT History and [...]
--- OUTSIDE RECORDS SUMMARY | 2024-08-19 11:15 | XMS_ITS ---
Author Organization [facility] Address [address] [facility] [address] [place] [id number] Care Team Providers Care Hearing Screener Name Role Phone Iraj Bakera Primary Care Provider [phone] Allergies No Known Allergies Results Component Value [...] Interpretation:Negative Performing Lab: Notes/Report: Test performed by [email or web address] [facility] [employer] [address], [address], [place] [address] Phoenix Schwarz MD, Gelatin Powder Mixer CLIA: [id number] B burgdorferi (Lyme Disease) IgG Negative Negative B burgdorferi (Lyme Disease) IgM Negative Negative P-Comprehensive Metabolic Pa gene (CMP) Reviewed date:08/26/2024 02:10:10 PM Interpretation:Glu 101 Performing Lab: Notes/Report: Test performed by [email or web address] [facility] , [address], [place] [address] Phoenix Schwarz MD, Gelatin Powder Mixer CLIA: [id number] Sodium 141 135-145 mmol/L Potassium 4.1 3.5-5.3 [...] 0.81 Performing Lab: Notes/Report: Test performed by [email or web address] [address] [facility] , [address], [place] [address] Phoenix Schwarz MD, Gelatin Powder Mixer CLIA: [id number] Rheumatoid Factor <10 <14.1 IU/mL C-Reactive Protein (CRP) 0.81 <0.50 mg/dL Antinuclear Antibodies (EVER) Screen, Reflex EVER 9 Panel Negative Negative This test is performed by Multiplex Bead Immunoassay methodology. Antinuclear Antibodies (EVER) Result Note SEE COMMENT For positive Autoantibodies, please refer to the interpretive chart here: [email or web address] [email or web address]/[email or web address] pretive-Chart.[email or web address] CCP Antibodies <0.5 <0.5-3.0 U/mL [...] W/U Status Risk Notes Problem Morbid obesity (545028641) Obesity, morbid, BMI 40.0-49.9 (E66.01) Active confirmed Vital Signs Weight 335 lbs 08/19/2024 Blood pressure systolic 130 mm Hg 08/20/19 25 Blood pressure diastolic 80 mm Hg 025 Heart Rate 100 /min 08/19/2024 Height 69.75 in 08/19/2024 BMI 48.41 kg/m2 08/19/2024 Encounters Encounter Location Date Provider Diagnosis [facility] [address] [facility] [address] [place] [address], [place] [id number] 08/19/2024 Nicci Baker Polyarthralgia M25.5 0 and [...] Notes * Karo COLONDOB:2000 (24 yo F)Acc No.[id number]:08/19/2024 Progress Notes Patient: Karo BARRON Provider: MONA He :2000 A ge:23 Y S ex:Female Date:08/19/2024 Phone: Address:[address] [place], [place] [address]Adolfo [facility] Subjective: * Chief Complaints: * 1 . [...] Flu Test- Nasal Swab, Modifiers: QW , 25309 CBC WITH AUTO DIFF, 29959 VENIPUNCT, ROUTINE*, 3075F SYST BP GE 130 - 139MM HG, 3079F DIAST BP 80-89 MM HG * Follow Up: v ia phone to report test results * Images: Billing Information: * Visit Code: 68254 Office Visit, Est Pt., Level 3. * Procedure Codes: 79229 Flu Test- Nasal Swab. Modifiers: QW 69148 CBC WITH AUTO DIFF. 91354 VENIPUNCT, ROUTINE*. 3075F SYST BP GE 130 - 139MM HG. 3079F DIAST BP 80-89 MM HG. * Electronic signature of MONA Jolley on 03/13/2025 at 08:21 PM EDT Sign off status: Pending * Provider: MONA He Date: 0 08/19/2024 Generated for Shantanu wong/Alondra/Donnie on: 1 08:21 PM EDT History and [...]
--- OUTSIDE RECORDS SUMMARY | 2024-08-24 04:55 | XMS_ITS ---
Author Organization [facility] Address [address] [facility] [address] [place] [phone] Care Team Providers Care Baseball Coach Name Role Phone Nicci Baker Primary Care Provider REASON FOR VISIT Lab Draw Encounters Encounter Location Date Provider Diagnosis [facility] [address] [place] [id number] 08/24/2024 Nicci Baker Plan Of Treatment No Information Progress Notes * Karo COLONDOB:2000 (24 yo F)Acc No.[id number]:08/24/2024 Patient: Shoaib BARRONssica Provider: MONA He :2000 A ge:23 Y S ex:Female Date:08/24/2024 Phone: Address:[place] Subjective: * Chief Complaints: * 1 . Lab Draw. * Medical History: Objective: * Vitals: Assessment: Plan: * Treatment: * Images: Billing Information: * Visit Code: * Procedure Codes: * Electronic signature of MONA Jolley on 03/13/2025 at 08:21 PM EDT Sign off status: Pending * Provider: MONA He Date: 0 08/24/2024 Generated for Shantanu wong/Alondra/eTransmitting on: 1 08:21 PM EDT
--- OUTSIDE RECORDS SUMMARY | 2024-11-18 12:00 | XMS_ITS ---
Author Organization [facility] Address 1210 [facility] [address] [place] [phone] Care Team Providers Care Senior Principal Architect Name Role Phone Nicci Baker Primary Care Provider [phone] Allergies No Known Allergies REASON FOR VISIT [...] Encounter Location Date Provider Diagnosis [facility] [address] [place] [id number] 11/18/2024 Nicci Baker History of mastoidit is Z86.69 Assessments Encounter Date Diagnosis (ICD Code) Assessment Notes Treatment Notes Treatment Clinical Notes Section Notes 11/18/2024 History of mastoiditis (ICD-10 - Z86.69) Patient is going to try to get in to see ENT next week at [facility]. She cannot see Dr. Fabian for 3 weeks. Plan Of Treatment Medication Medication Name Sig Start Date Stop Date Notes Cefdinir 300 MG 1 cap(s) Orally Two times a day; Duration: 10 days 11/18/2024 Treatment Notes Assessment Notes History of mastoiditis Patient is going to try to get in to see ENT next week at [facility]. She cannot see Dr. Fabian for 3 weeks. Next Appt Details Follow Up: with ENT, Reason: Progress Notes * Karo COLONDOB:2000 (24 yo F)Acc No.[id number]:11/18/2024 Progress Notes Patient: Karo BARRON Provider: MONA He :2000 A ge:23 Y S ex:Female Date:11/18/2024 Phone: Address:[address] [place], [place] [address], [id number] Subjective: * Chief Complaints: * 1 . [...] Follow Up: w [facility] ENT * Images: Billing Information: * Visit Code: 80371 Office Visit, Est Pt., Level 3. * [...] 0 11/18/2024 Generated for Shantanu wong/Alondra/eTsandysmitting on: 1 08:21 PM EDT History and [...]
--- OUTSIDE RECORDS SUMMARY | 2025-03-13 20:20 | XMS_ITS | Clinical Summary ---
Author Organization [facility] Address [address] [place] [address] Phone Care Team Providers Care Log Hooker Name Role Phone Jasmeet SANTIAGO, Bhavana Maynard Unavailable Conditions or Problems Problem Name Problem Code Onset Date Status Entry Date Provider Comment Standard Description Annotate Ear pain, left 6578148623 (SNOMED CT) 06/01 Active 06/01 Cesar Argueta MD Otalgia of left ear Acute mastoiditis, left 989788827 (SNOMED CT) 06/01 Active 06/01 Cesar Argueta MD Acute mastoiditis Screening for HIV 353278475 (SNOMED CT) 12/17 Active 12/17 Gorge Handy Procedure carried out on subject Acute recurrent suppurative otitis media, left 360447403 (SNOMED CT) 12/04 Active 12/04 Sasha Malik Recurrent acute suppurative otitis media Acute recurrent serous otitis media, left 132815805 (SNOMED CT) 12/03 Active 12/03 Sasha Malik Acute non-suppurat gokul serous otitis media Serratia marcescens infection B96.89 (ICD-10-CM) 12/03 Active 12/03 Cesar Argueta MD Other specified bacterial agents as the cause of diseases classified elsewhere Facial swelling 962493303 (SNOMED CT) 12/03 Active 12/03 Aida Argueta Facial swelling Recurrent otitis media (ROM) 7336232367800 104 (SNOMED CT) 12/03 Inactive 12/03 Aida Argueta Otitis media of right ear Chronic mastoiditis, left 20524536 (SNOMED CT) 12/03 Active 12/03 Lydia Medrano Chronic mastoiditis Medications Medication Instructions Start Date Stop Date Generic Name NDC Provider ceftriaxone recon kikanoemi Rocephin 2gm IV Q 24hrs/ OPAT 06/01 ceftriaxone recon katy espana recon solnoemi Rocephin 2gm IV Q 24hrs INPAT 06/01 ceftriaxone recon katy Gonzales METRONIDAZOLE 500 MG TABS Take 1 tablet by mouth three times a day 06/01 metronidazole 20258648829 Cesar Argueta MD WEGOVY 0.5 MG/0.5ML SOAJ 06/01 semaglutide (weight loss) 59221374437 Lynn Jarvis HYDROCHLOROTHIAZIDE 12.5 MG TABS 06/[address] [facility] VENLAFAXINE HCL 37.5 MG TABS 06/01 venlafaxine 79383823313 [facility] PRISTIQ 100 MG AE30V-GFH once a day desvenlafaxine succinate 93495188168 [facility] ZOSYN 4-0.5 GM/100ML SOLN Q 8 hrs/OPAT 01/26 piperacillin-tazoba ctam-dextrs 76106526249 Bhavana Alamo RN WEGOVY 0.5 MG/0.5ML SOAJ 06/01 semaglutide (weight loss) 25152335805 Farrah Gunjan VENLAFAXINE HCL 37.5 MG TABS 06/01 venlafaxine 95387105576 Farrah Gunjan HYDROCHLOROTHIAZIDE 12.5 MG TABS 02/17 hydrochlorothiazide 57311226518 Farrah Gunjan Medications Administered No information available. [...] Procedures Code Procedure Name Date Entry Date CPT-51506 CMP [id number] CBC with Differential 2024 CPT-03852 C- reactive protein CPT-02018 Sedimentation Rate (ESR) 202 09/17/27 CPT-27534 CMP [id number],[id number] CBC with Differential 2024 CPT-89043 C- reactive protein CPT-82739 Sedimentation Rate (ESR) 09/16/20 CPT-sl STAT Labs [id number] CBC with Differential 2024 CPT-90971 CMP CPT-72180 C- reactive protein CPT-37526 Sedimentation Rate (ESR) 09/17/15 CPT- stat weekly Stat Weekly Labs CPT-64019 X-Ray, Chest (PICC Placement only) 06/02 CPT-14039 CMP [id number] CBC with Differential 2024 CPT-51947 C- reactive protein CPT-82402 Sedimentation Rate (ESR) 09/16/13 CPT-sl STAT Labs CPT-sl STAT Labs CPT-sl STAT Labs CPT-55635 CMP [id number] CBC with Differential 2023 CPT-46678 C- reactive protein CPT-94188 Sedimentation Rate (ESR) 08/24/14 CPT-sl STAT Labs CPT-sl STAT Labs CPT-79803 CMP [id number] CBC with Differential 2023 CPT-26148 C- reactive protein CPT-12112 Sedimentation Rate (ESR) 202 08/23/24 CPT- stat weekly Stat Weekly Labs CPT-sl STAT Labs CPT-sl STAT Labs CPT-57884 CMP [id number] CBC with Differential 2023 CPT-20036 C- reactive protein CPT-64416 Sedimentation Rate (ESR) 202 08/23/17 Vital Signs [...]
--- OUTSIDE RECORDS SUMMARY | 2025-03-13 20:21 | XMS_ITS | Clinical Summary ---
Author Organization [facility] Address [address] [id number] Care Team Providers Care Thermal Cutting Machine Operator Name Role Phone Nicci Baker Primary Care Provider [phone] Social History Tobacco Use Types Packs/Day Years [...] patient's age to complete this topic Insurance 250PAIGE BEDOYA [id number] [facility] PPO Member Subscriber Plan / Payer (Ef fective 2023-Present) Name:Karo Colon Relation to Subscriber:Spouse Name:FAVIAN COLON Date of :1998 (Home) Address: [address] [place], [place] [address] [address] Payer ID:[id number] (NAIC) Type:Not on file Address: [address] [place] [id number] Care Teams Thermal Cutting Machine Operator Relationship Specialty Start Date End Date Nicci Baker PA [address] [facility] [id number] PCP - General Physician Handle Attacher 12/04/23
--- OUTSIDE RECORDS SUMMARY | 2025-03-13 20:21 | XMS_ITS | Data Portability ---
Author Organization PAIGE [facility]T [facility] Address [address] [facility] [address] [place] [address] Care Team Providers Care Parts Washer Name Role Phone BERNARDOCURTIS TRINITY Primary Care Provider CAILIN PINEDA Referring Provider Assessment No assessment recorded. Plan of Treatment Reminders Order Date Submit Date Provider Last Modified By Organization Details Last Modified Time Details Appointments RECHECK 2024 03:00P M DAREK PIMENTEL MD Not available Not available Not available Lab None recorded . Referral None recorded . Procedures None recorded . Surgeries None recorded . Imaging None recorded . Medication Orders Ciprodex 0.3 %-0.1 % ear drops,zaragoza spension [address] [facility], [address] [place] [address] [place] [id number], 12/04/2023 17:20:00 Patient TargetsNo targets recorded. Patient Instructions Encounter Date Encounter Id Patient Instructions Last Modified By Organization Details Last Modified Time 12/04/[id number] of tempora l bone reviewed [...] DAYS 5. Follow up in 2-3 weeks [email or web address] Not available 12/04/2023 12:46:01 Might need LEFT mastoidectomy [email or web address] Not available 12/04/2023 12:48:07 01/01/2024 [id number] 1. Dae Photos obtained in office today 2. Ordered CT scan of the Temporal Bone 3. F/u with CT results in 1 month [email or web address] Not available 01/01/2024 13:44:11 09/02/2024 [id number] 1. Most recent C T of temporal bone reviewed and discussed with patient. 2. Audiogram obtained in office today. Results reviewed and discussed with patient. 3. Left binocular microscopy performed in office today. Full risks, complications, and benefits of non-operative intervention have been thoroughly discussed. Understanding was expressed, informed consent given, and we will proceed with the discussed treatment plan. There were no questions for me at the end of the office visit. 4. Follow up prn. beny Not available 09/02/2024 14:21:04 This patient has had recurrent left ear pain and concerns about infection. Imagery including multiple scans have shown minimal disease in the mastoid. Bacteria have been cultured from the drainage of the ear tube and patient has been on Zosyn and intravenous antibiotics via PICC line as well as Rocephin. She was recently prescribed Ciprodex drops. Her examination today reveals minimal scant fluid around the ear tube, no middle ear pathology visible through the tube, no mastoid swelling or tenderness. She states she has intermittent left facial pain. It would appear that her symptoms are disproportionate to her imaging and physical findings. I doubt whether more significant intervention would be useful though we may get an opinion from the [facility] regarding mastoid exploration. She might have none otogenic otalgia [email or web address] Not available 09/02/2024 17:27:50 Reason for Referral None Reported. Results Created Date Observation Date Name Description Value Unit Range Abnormal Flag Note LastModifiedBy Organization Detail LastModifiedTime 01/09/20 24 01/09/2024 CT, tempo ral bone, w/o contr ast Brianna [place]ja [facility] [address] [place] [address] Stephenie palomino Name: BELEM palomino : [address] 45 Orderi ng Provid er: JAMIL Y V OSETIN LANDON EXAM DATE: 2023 EXAM: [...] were also obtain ed. FINDIN GS: The sock drier al audito ry canals , tympan ic [...] Julisa andrews MD on 024 11:12 AM [facility] [address] [place], [address], 01/12/2024 09:49:28 09/07/19 25 09/02/2024 audio gram No observ ation record ed. BARCODE Not Available 2024 08:58:28 Result Notes Documentation Provider Name and Address Organization Details Recorded Time Ct, Temporal Bone, W/o Contrast : [address] [place] [address] Patient Name: JERED COLON Patient : 2000 Patient Ordering Provider: DAREK PIMENTEL EXAM DATE: 01/09/2024 EXAM: CT TEMPORAL BONES W/O CONTRAST HISTORY: 23-year-old female with left mastoiditis.. COMPARISON: None. TECHNIQUE: CT of the petrous temporal bone was obtained utilizing multiple contiguous 3.67 mm axial slices without the use of intravenous contrast. Axial, Stenvers, Poschl, and coronal reformats were also obtained. FINDINGS: The external auditory canals, tympanic membranes, and osseous labyrinths are normal bilaterally. There is no evidence of erosion of the ossicles, scutum, or tegmen tympani. The right mastoid air cells are well-pneumatized and well aerated. There is a small amount of fluid in the left mastoid air cells. No suspicious osseous lesion or fracture is identified. The visualized brain parenchyma appears normal. There is moderate mucosal thickening in the right sphenoid sinus. IMPRESSION: 1. There is a small amount of fluid in the left mastoid air cells. The temporal bones are otherwise normal in appearance. Interpreted By: Jovany Nunes MD K PIMENTEL MD [address] [place], [address], [facility] 01/12/2024 08:37:43 Procedures Surgical History Date Name Laterality Status Provider Name and Address Organization Details Recorded Time 09/03/19 25 Tympanogram completed GINA ROMAN, CHERRY [address] [place], [address], [facility] 09/02/2024 13:45:55 09/03/19 25 Audiogram completed CHERRY HORTON [address] [place], [address], [facility] 09/02/2024 13:45:53 09/03/19 25 [facility] 14:15:26 12/04/19 24 [facility]sc[facility] 12/04/2023 12:43:44 section completed Kaylin Cao [facility] 12/04/2023 11:01:59 cholecystectomy completed Kaylin Delvis GIBSON [facility] 12/04/2023 11:02:13 Imaging Results None recorded. Procedure Notes None recorded. Medical Equipment None [...] Not Available Not Available No t Available meloxicam 15 mg tablet TAKE 1 TABLET BY MOUTH ONCE DAILY active Not Available [...] completed Not Available Not Available Not Available labetalol 100 mg tablet TAKE 1 TABLET BY MOUTH TWICE DAILY active Not Available Not Available No t Available cefdinir 300 mg capsule TAKE 1 CAPSULE BY MOUTH TWICE DAILY 03/05 completed Not Available Not Available Not Available [...] %-dexametha sone 0.1 % ear drops,suspe nsion INSTILL 4 DROPS INTO AFFECTED EAR(S) TWICE DAILY FOR 7 DAYS 03/05 completed Not Available Not Available Not Available Bactrim DS active Not Available Not Av ailable Not Available desvenlafax ine succinate ER 50 mg tablet,exte nded release 24 hr active Not Available Not Available Not Available desvenlafax ine succinate ER 100 mg tablet,exte nded release 24 hr TAKE ONE TABLET BY MOUTH DAILY active Not Available Not Available No t Available Vraylar 1.5 mg capsule TAKE 1 CAPSULE BY MOUTH ONCE DAILY active Not Available Not Available No t Available Wegovy 2.4 mg/0.75 mL subcutaneou s pen injector INJECT [...] Not Available Not Available No t Available Zepbound 10 mg/0.5 mL subcutaneou s pen injector INJECT 1 SYRINGE SUBCUTANE OUSLY ONCE A WEEK active Not Available Not Available No t Available Zepbound 5 mg/0.5 mL subcutaneou s pen injector INJECT 1 SYRINGE SUBCUTANE OUSLY ONCE A WEEK active Not Available Not Available No t Available Zepbound 2.5 mg/0.5 mL subcutaneou s pen injector INJECT 1 SYRINGE SUBCUTANE OUSLY ONCE A WEEK active Not Available Not Available No t Available Zepbound 7.5 mg/0.5 mL subcutaneou s pen injector INJECT 1 SYRINGE SUBCUTANE OUSLY ONCE A WEEK active Not Available Not Available No t Available Vitals Date Recorded Body height Body mass index (BMI) Body weight Body temperature Heart rate Systolic And Diastolic Provider Name and Address Organization Details Last Updated DateTime 5 177.8 cm 47.8 kg/m2 741108. 26 g 97.4 [degF] 82 /min 139/93 mm[Hg] Gema [facility] 5 13:13:06 Date Recorded Body height Body mass index (BMI) Body weight Heart rate Systolic And Diastolic Provider Name and Address Organization Details Last Updated DateTime 12/04/2023 10.16 cm 247.2 kg/m2 2551.46 g 83 /min 147/111 mm[Hg] Kaylin Edmondson [facility] 12/04/2023 10:59:12 Date Recorded Body height Body mass index (BMI) Body weight Body temperature Heart rate Systolic And Diastolic Provider Name and Address Organization Details Last Updated DateTime 4 177.8 cm 46.8 kg/m2 709388. 11 g 97.3 [degF] 97 /min 113/87 mm[Hg] [facility] 4 13:21:57 Social History None recorded. Functional Status Question Answer Note LastModified by Organizat ion Details LastModified Time What is your level of alcohol consumption? Occasional [email or web address] Information not available 12/04/2023 Mental Status None recorded. Family History Nothing Reported. Medical History Condition Response Kidney Stones N Hyperthyroidism N Heart Arrhythmia N Emphysema N Esophagus/swallowing troubles N Glaucoma N Depression Y Hypothyroidism N Lung Disease N Anesthesia Complications N Anxiety Disorder Y Arthritis N Hearing Loss N Acid Reflux (GERD) N Cancer N Stroke N Hoarseness N Alcohol Overuse/Alcohol Abuse N High Cholesterol N Snoring problems N Liver Disease N Headaches N Kidney Disease N Allergies/Hayfever N Heart Problems N Mental handicap N Ear or Hearing Problems Y Gallbladder Disease N Migraines N Thyroid Problems N Goiter N Anemia Y Immune System Disorder N Chest Pain N Stomach trouble N Ulcers N Heart Attack (VA) N Diabetes N Rheumatic Fever N Bleeding Disorder N Tuberculosis N AIDS/HIV N Hyperlipidemia N Asthma N Epilepsy/Seizures N Sleep Disorder N Hepatitis N Heart Disease N Hypertension Y Gynecological HistoryNo gynecological history recorded. Obstetrics History GPAL:G 0 P 0 0 0 0 Past Encounters Encounter ID Performer Location Encounter Start Date Encounter Closed Date Diagnosis/Indication Diagnosis SNOMED-CT Code Diagnosis ICD10 Code Diagnosis IMO Codes Diagnosis Note [id number] DAREK PIMENTEL MD [place] [facility] [address] [place] [address] 12/04/2023 09:29:39 12/04/2023 13:13:42 Bilateral earache 073111310 H92.03 Chronic le ft mastoiditis 6574355534 265397 H70.[address] temporal bone = opacificat ion left mastoid cavity [id number] DAREK PIMENTEL MD [place] [facility] [address] [place] [address] 01/01/2024 13:11:08 01/08/2024 11:04:06 Chronic left mastoiditis 0896620319 310277 H70.[address] temporal bone = opacificat ion left mastoid cavity Bilateral earache 067552 003 H92.03 [id number] DAREK PIMENTEL MD [place] [facility] [address] [place] [address] 09/02/2024 13:04:52 09/02/2024 14:24:09 Chronic left mastoiditis 8496368613 559308 H70.[address] temporal bone = opacificat ion left mastoid cavity01/08 CT temporal = There is a small amount of fluid in the left mastoid air cells. Thetempora l bones are otherwise normal in appearance . [id number] CHERRY HOTRON [facility] [address] [place] [address] 09/02/2024 13:44:47 09/03/2024 04:39:54 Dysfunction of left eustachian tube 8605654322 228537 H69.92 [id number] Tinnitus of left ear 989 7041593 106 H93.12 [id number] Mixed cond uctive AND sensorineural hearing loss 66849902 H90.A32 [id number] Bilateral hearing loss 31317498 H90.A21 [id number] Health Concerns Section Related Observation LastModified by Organization Detai ls LastModified Time None Recorded Concern Status LastModified by Organization Details LastModified Time None Recorded Advance Directives Directive None Recorded Payers Insurance Date Sequence Insurance Name Policy Number Policy Mcmanus Covered Member ID Mcmanus Member ID Guarantor Name 03/05/2025 1 [id number] [id number] Federico Colon [id number] Jered Colon Notes Date Note Type Note Provider Name and Address Organization Details Recorded Time 12/04/2023 text/html ROS as noted in the HPI Jered Colon (23F) visits our office for a a consultation regarding her left ear. She has had recurring infections and pain for 3 months. Jered was in the [facility] ER on 12/03/23 for complaints of left otalgia and purulent yellowish green thick drainage from the ears. She reports that her issues began back in August, but were exacerbated on 12/03/23. She has been on several antibiotics including cefdinir and Septra and steroids for her issue, without benefit. Jered had a tube placed in her left ear ~ 2 weeks ago. She was placed on Tobradex ear drops last week.She underwent myringotomy tube placement on 11/18/[address] Jazmin Croft09/24/23 -culture of ear drainage = serratia 11/24/23 -culture of ear drainage = achromobacter species 12/03/23 CT temporal bone = opacification left mastoid cavity DAREK PIMENTEL MD [address] [place] [address] [place], [address], [facility] 12/04/2023 13:00:07 01/01/2024 text/html Jered visits us in office today to follow up on her left mastoiditis. Pt had a pic line placed in the right arm for treatement of an infection. Pain had subsided for a few weeks, but returned in the past few days. Pt had a CT scan about 4 weeks ago. DAREK PIMENTEL MD [facility] [place], [address], [facility] 01/02/2024 15:44:38 09/02/2024 text/html ROS as noted in the HPI Jered Colon (23F) visits our office for an evaluation of recent Left Ear drainage: pt is currently using ciprodex drops. 01/09/24 CT temporal = There is a small amount of fluid in the left mastoid air cells. Thetemporal bones are otherwise normal in appearance. Jered reports a recent flare up of her left ear with yellowish, green thick drainage. Since her last visit, She had another pick line place and was administered Zosyn for 4 weeks and Rocephin for 7 weeks. DAREK PIMENTEL MD [address] [place] [address], [place], [address], [facility] 09/02/2024 17:28:07 OBGyn Episode No OBEpisode recorded.
--- OUTSIDE RECORDS SUMMARY | 2025-03-13 20:23 | XMS_ITS | Patient Health Record ---
Author Organization [facility] Address [address] [facility] [address] [place] [id number] Care Team Providers Care Scientific Editor Name Role Phone Nicci Baker Primary Care [...] - 38 plat 149 100 - 400 Rapid Strep- Inhouse Reviewed [...] Interpretation:Negative Performing Lab: Notes/Report: Test performed by [facility] [address] [place] [address] , [address], [place] [address] Phoenix Schwarz MD, Pilot Manager CLIA: [id number] B burgdorferi (Lyme Disease) IgG Negative Negative B burgdorferi (Lyme Disease) IgM Negative Negative P-Comprehensive Metabolic Pa gene (CMP) Reviewed date:08/26/2024 02:10:10 PM Interpretation:Glu 101 Performing Lab: Notes/Report: Test performed by [facility] [address] [place] [address] , [address], [place] [address] Phoenix Schwarz MD, Pilot Manager CLIA: [id number] Sodium 141 135-145 mmol/L Potassium 4.1 3.5-5.3 [...] 0.81 Performing Lab: Notes/Report: Test performed by [facility] [address] [place] [address] , [address], [place] [address] Phoenix Schwarz MD, Pilot Manager CLIA: [id number] Rheumatoid Factor <10 <14.1 IU/mL C-Reactive Protein (CRP) 0.81 <0.50 mg/dL Antinuclear Antibodies (EVER) Screen, Reflex EVER 9 Panel Negative Negative This test is performed by Multiplex Bead Immunoassay methodology. Antinuclear Antibodies (EVER) Result Note SEE COMMENT For positive Autoantibodies, please refer to the interpretive chart here: [email or web address] CCP Antibodies <0.5 <0.5-3.0 U/mL Erythrocyte Sedimentation Rate (ESR), Automated Specimen received beyond stability.. Test cannot be performed. Acceptable stability from collection is [24 hours]. H-Iron Reviewed date:06/16/2024 09:14:56 AM Interpretation:44 Performing Lab: Notes/Report: FE 44 37-170 ug/dL H-Ferritin Reviewed date:06/16/2024 09:14:56 AM Interpretation:9.63 Performing Lab: Notes/Report: VALERIE 9.63 6.24-137 ng/ml H-CMP Reviewed date:06/16/2024 09:14:56 AM Interpretation:Normal Performing [...] AGRATIO 1.5 1.1-1.8 ALP 67 38-126 U/L H-Lipid Panel Reviewed date:06/16/2024 09:14:56 AM Interpretation:dldl 98.11 Performing Lab: Notes/Report: Patient Fasting? Y TRIG 45 30-150 mg/dl CHOL 163 140-200 mg/dl DLDL 98.11 100-129 mg/dL VLDL 9 0-40 mg/dL HDL 47 40-60 mg/dl CHLHDL 3.5 1-3.5 H-VITAMIN D Reviewed date:06/16/2024 09:14:56 AM Interpretation:16.4 Performing Lab: Notes/Report: TVITD 16.4 30-100 ng/mL Deficient <20 ng/mL Insufficient 20-30 ng/mL Sufficient 30-100 ng/mL Potential Toxicity >100 ng/mL H-TSH Reviewed date:06/16/2024 09:14:56 AM Interpretation:Normal Performing Lab: Notes/Report: TSH 1.95 0.465-4.68 uIU/mL H-VITAMIN B12 Reviewed date:06/16/2024 09:14:56 AM Interpretation:287 Performing Lab: Notes/Report: VITB12 287 239-931 pg/mL H-Glycohemoglobin A1C Reviewed date:06/16/2024 09:14:56 AM Interpretation:4.9 Performing Lab: Notes/Report: HGBA1C 4.9 4.0-6.0 % < 6% Non-Diabetic Level < 7% Controlled Diabetic Level > 8% Poorly Controlled Diabetic Level H-CBC Reviewed date:06/16/2024 09:14:56 AM Interpretation:hgb 11, [...] 0.2 0.0-0.4 K/mm3 BA# 0.1 0-0.2 K/mm3 P-Sed Rate (ESR) Reviewed date:08/26/2024 02:10:10 PM Interpretation:8 Performing Lab: Notes/Report: Test performed by [facility] [address] [place] [address] , [address], [place] [address] Phoenix Schwarz MD, Pilot Manager CLIA: [id number] Erythrocyte Sedimentation Rate (ESR), Automated 8 <26 mm/hr CT scan : Temporal bones w/ and [...] Status Risk Notes Problem Gastroesophageal reflux disease (809932291) GERD (gastroesophageal reflux disease) (K21.9) Active confirmed Problem Hypertension (13582243) HTN (hypertension) (I10) Active confirmed Problem Hyperlipidemia (39181121) Hyperlipidemia (E78.5) Active confirmed Problem Vitamin D deficiency (03685060) Vitamin D deficiency (E55.9) Active confirmed Problem Paresthesia (54420909) Paresthesia (R20.2) Active confirmed Problem Mixed anxiety and depressive disorder (921932747) Depression with anxiety (F41.8) Active confirmed Problem Hearing loss (47274059) Hearing loss (H91.90) Active confirmed Problem Amenorrhea (45168206) Amenorrhea (N91.2) Active confirmed Problem Body mass index 40+ - severely obese (353079470) BMI 45.0-49.9, adult (Z68.42) Active confirmed Problem Migraine (07208453) Migraine wit hout status migrainosus, not intractable, unspecified migraine type (G43.909) Active confirmed Problem Anemia (168053826) Anemia, unspecified type (D64.9) Active confirmed Problem Morbid obesity (698411417) Obesity, morbid, BMI 40.0-49.9 (E66.01) Active confirmed Problem Insulin resistance (584585166) Insulin resistance (E88.81) Active confirmed Problem Chronic serous otitis media (87964629) Left chronic serous otitis media (H65.22) Active confirmed Problem Refractory migraine without aura (099915163) Intractable migraine without aura and without status migrainosus (G43.019) Active confirmed Problem Anxiety depression (667193991) Anxiety with depression (F41.8) Active confirmed Problem Major depression, single episode (97426384) Major depressive disorder with current active episode, unspecified depression episode severity, unspecified whether recurrent (F32.9) Active confirmed Vital Signs Heart Rate 77 /min 11/18/2024 Blood pressure diastolic 82 mm Hg 11/18/2024 Height 69.75 in 11/18/2024 Blood pressure systolic 130 mm Hg 11/18/2024 Weight 336 lbs 11/18/2024 BMI 48.55 kg/m2 11/18/2024 Encounters Encounter Location Date Provider Diagnosis [facility] [address] [place] [id number] 03/17/2024 Nicci Baker Acute URI J06.9 [facility] [address] [place], [place] [id number] 06/23/2024 Nicci Crowdy Vitamin B12 deficien cy E53.8 [facility] [address] [place], [place] [id number] 07/01/2024 Nicci Crowdy Acute URI J06.9 [facility] [address] [place], [place] [id number] 08/19/2024 Nicci Crowdy Polyarthralgia M25.5 0 and Obesity, morbid, BMI 40.0-49.9 E66.01 [facility] [address] [place], [place] [id number] 08/24/2024 Nicci Crowdy [facility] [address] [place], [place] [id number] 11/18/2024 Nicci Crowdy History of mastoidit is Z86.69 [facility] [address] [place], [place] [id number] 05/26/2024 Nicci Crowdy History of mastoidit is Z86.69 [facility] [address] [place], [place] [id number] 06/02/2024 Nicci Crowdy [facility] [address] [place], [place] [id number] 06/11/2024 Nicci Crowdy HTN (hypertension) I 10 ; Iron deficiency E61.1 ; Vitamin D deficiency E55.9 ; Diabetes mellitus screening Z13.1 ; Anemia, unspecified type D64.9 ; Thyroid disorder screen Z13.29 ; Hyperlipidemia E78.5 and Vitamin B12 deficiency E53.8 [facility] [address] [place], [place] [id number] 06/16/2024 Nicci Crowdy [facility] [address] [place] [id number] 06/16/2024 Nicci Crowdy [facility] [address] [place] [id number] 07/05/2024 Nicci Crowdy [facility] [address] [place] [id number] 08/26/2024 Nicci Baker [facility] [address] [facility] [address] [facility] [address] [place] [id number] 10/01/2024 Nicci Baker [facility] [address] [facility] [address] [place] [id number] 10/06/2024 Nicci Baker Assessments Encounter Date Diagnosis (ICD Code) Assessment Notes Treatment Notes Treatment Clinical Notes Section Notes 03/17/2024 Acute URI (ICD-10 - J06.9) Has bromfed at home. 05/26/2024 History of mastoiditis (ICD-10 - Z86.69) 06/11/2024 HTN (hypertension) (ICD-10 - I10) 06/11/2024 Iron deficiency (ICD-10 - E61.1) 06/23/2024 Vitamin B12 deficiency (ICD-10 - E53.8) 07/01/2024 Acute URI (ICD-10 - J06.9) 08/19/2024 Polyarthralgia (ICD-10 - M25.50) 08/19/2024 Obesity, morbid, BMI 40.0-49.9 (ICD-10 - E66.01) 11/18/2024 History of mastoiditis (ICD-10 - Z86.69) Patient is going to try to get in to see ENT next week at [facility]. She cannot see Dr. Fabian for 3 weeks. 06/11/2024 Vitamin D deficiency (ICD-10 - E55.9) [...] Coverage Start Date Coverage End Date [facility] [address] [place] [address] [id number] Karo Colon Self - patient is the insured Medications Administered Medication Instructions Date of Administration Dosage Notes B-12 06/23/2024 1 mL Medical (General) History Medical History History ICD Code Hypertension Insulin Resistance COVID 19- 03/23/2021 chronic OM left eAR left mastoiditis Surgical History Surgery Date(Month/Year) [place] Teeth Extractions 07/2019 01/15/2022 cholecystectomy 03/04/2022 C- Section 05/26/2023 left myringotomy tube placement 11/18/2023 Hospitalization History Reason Date(Month/Year) 05/2023 01/2022
[2025-03-13 20:25] VITALS: BMI 47.1
[2025-03-13 20:29] VITALS: BP 130/76; PULSE 109; RESP 18; TEMP 36.7; O2SAT 97; BMI 47.1
[2025-03-13 20:46] LABS: Microscopic, Urine URINE MICROSCOPIC (MICROSCOPIC)
[2025-03-13 20:50] LABS: Color,Urine YELLOW (Yellow); Glucose,Urine (UA) Negative (Negative); Ketones,Urine 1+ (Negative); Leukocyte Esterase,Urine Negative (Negative); PH,Urine 7.0 (5.0-8.5); Protein,Urine 1+ (Negative); Specific Gravity, Urine 1.015 (1.005-1.030); Urobilinogen,Urine >=8.0 EU/dl (0.2)
[2025-03-13 20:54] LABS: Bilirubin,Urine 2+ (Negative)
[2025-03-13 21:07] LABS: RBC,Urine Occasional #/hpf (0-3)
[2025-03-13 21:08] LABS: Bacteria,Urine 2+ /lpf
[2025-03-13] MEDS: CEFTRIAXONE 1 GM 1 GM in 0.9 % SODIUM CHLORIDE 50 ML IV (21:25)
[2025-03-13] MEDS: LACTATED RINGERS 1000ML 1,000 ML 999 ML IV (22:05)
== END 2025-03-13 23:16 | disposition home or self-care (01) ==
LOC: OBOUT 20:19 → OB 20:20
PROVIDERS: PCP Physician Assistant; Visit Provider Obstetrics & Gynecology
DX: O36.8120 Decreased fetal movements, second trimester, not applicable or unspecified (principal); O99.891 Other specified diseases and conditions complicating pregnancy; R25.2 Cramp and spasm; Z3A.26 26 weeks gestation of pregnancy
CPT/HCPCS: 81001; 87086; 96360; 99212; G0463; J0696; J7120

== ENCOUNTER 2025-03-21 18:14 | Outpatient (CLI) | payer BC, SELFPAY ==
--- OUTSIDE RECORDS SUMMARY | 2024-02-10 04:30 | XMS_ITS ---
Author Organization [facility] Address [address] [place] [id number] Care Team Providers Care Principal Java Software Engineer Name Role Phone Nicci Baker Primary Care Provider Sulma Amador Unavailable [phone] Allergies No Known Allergies Results Component Value Reference Range Notes CBC Fingerstick (in house) Reviewed date:02/10/2024 01:31:10 PM Interpretation: Performing Lab: Notes/Report: wbc 8.5 3.5 - 10 lym 17.3 15 - 50 mid 4.3 2 - 15 gran 78.4 35 - 80 rbc 4.78 3.5 - 5.5 hgb 11.6 11.5 - 16.5 hct 35.2 35 - 55 mcv 73.6 75 - 100 mch 24.2 25 - 35 mchc 32.9 31 - 38 plat 272 100 - 400 TEN-Upper Respiratory PCR Reviewed date:02/13/2024 08:50:15 AM Interpretation:Abnormal; Rhinovirus Performing Lab: Notes/Report: Abnormal; Rhinovirus REASON FOR VISIT chest congestion, cough Medications Medication SIG (Take, Route, Frequency, Duration) Notes Start Date End Date Status Vraylar 1.5 MG 1 capsule Orally Once a day; Duration: 30 day(s) 01/07/2024 Active Ondansetron HCl 8 MG 1 tab(s) Orally every 8 hours prn 05/28/2021 Not-Taking Wegovy 2.4 MG/0.75ML 0.75 mL Subcutaneou s once a week; Duration: 28 days 12/08/2023 Active Vitamin B12 1000 MCG 1 tablet Orally Onc e a day 09/26/2023 Active Vitamin D3 125 MCG (5000 UT) 1 capsule O rally Once a day; Duration: 30 day(s) 09/26/2023 Active hydroCHLOROthiazide 12.5 MG 1 capsule in the morning Orally Once a day; Duration: 90 days 06/02/2023 Active Benzonatate 200 MG 1 capsule as needed Orally Three times a day 02/10/2024 Active Ferrous Sulfate 325 (65 Fe) MG 1 tablet Orally once daily 09/26/2023 Active Medrol 4 MG as directed orally daily; Duration: 6 days 02/10/2024 Active Desvenlafaxine ER 50 MG 1 tablet Orally Once a day; Duration: 30 day(s) Active Vital Signs Height 69.75 in 02/10/2024 Weight 322 lbs 02/10/2024 BMI 46.53 kg/m2 02/10/2024 Encounters Encounter Location Date Provider Diagnosis [facility] [address] [id number] 02/10/2024 Sulma Amador Bronchitis J4 0 Assessments Encounter Date Diagnosis (ICD Code) Assessment Notes Treatment Notes Treatment Clinical Notes Section Notes 02/10/2024 Bronchitis (ICD-10 - J40) fluids, rest, supportive measures for fever/symptom relief; will try Mucinex DM and airsupra inhaler Plan Of Treatment Medication Medication Name Sig Start Date Stop Date Notes Benzonatate 200 MG 1 capsule as needed Orally Three times a day 02/10/2024 Medrol 4 MG as directed orally d aily; Duration: 6 days 02/10/2024 Treatment Notes Assessment Notes Bronchitis fluids, rest, suppor tive measures for fever/symptom relief; will try Mucinex DM and airsupra inhaler Next Appt Details Follow Up: prn, Reason: Progress Notes * Karo COLONDOB:2000 (24 yo F)Acc No.[id number]:02/10/2024 Progress Notes Patient: Tiera BARRONica Provider: SMITH Talley :2000 A ge:23 Y S ex:Female Date:02/10/2024 Phone: Address:[address] [place] [address] [place], [place] Pcp:Nicci Baker Subjective: * Chief Complaints: * 1 . Chest congestion, cough. * HPI: E NT/respiratory: 23 year old female presents with c/o cough f or 2 days?greenish yellow sputum production. c/o nasal congestion r unny nose, green drainage, off and on. c/o Fever. c/o ear pain r ight. c/o post nasal drainage. c/o facial pain/pressure. c/o chest congestion o ccasional tightness in chest. Denies : rhinorrhea. D enies : headache. D enies : smoking. D enies : body aches. eating and drinking OK; taking bromfed which does not help. * ROS: D ERMATOLOGY: no R regino. [...] drinks a month. * Medications: T aking Desvenlafaxine ER 50 MG Tablet Extended Release 24 Hour 1 tablet Orally Once a day , Taking hydroCHLOROthiazide 12.5 MG Capsule 1 capsule in the morning Orally Once a day , Taking Vitamin D3 125 MCG (5000 UT) Capsule 1 capsule Orally Once a day , Taking Vitamin B12 1000 MCG Tablet Extended Release 1 tablet Orally Once a day , Taking Ferrous Sulfate 325 (65 Fe) MG Tablet Delayed Release 1 tablet Orally once daily , Taking Vraylar 1.5 MG Capsule 1 capsule Orally Once a day , Taking Wegovy 2.4 MG/0.75ML Solution Auto-injector 0.75 mL Subcutaneous once a week , Not-Taking Ondansetron HCl 8 MG Tablet 1 tab(s) Orally every 8 hours prn , Discontinued Zosyn 4-0.5 GM/100ML Solution 100 mL Intravenous every 8 hrs , Discontinued Venlafaxine HCl ER 75 MG Capsule Extended Release 24 Hour 1 capsule with food Orally Once a day , Discontinued Zithromax Z-Jacob 250 MG Tablet 2 pills first day then one daily for 4 days orally as directed , Medication List reviewed and reconciled with the patient * Allergies: N .K.D.A. Objective: * Vitals: W t:322, Temp:98.5, Nurse:valentino, Ht: 69.75, BMI:46.53. * Examination: E NT/Respiratory: General Appearance: well nourished and hydrated, alert, active. E yes: sclera and conjunctiva clear. E ars: Roight TM and canal appear normal; left TM with blue ET; canal appears normal. N ose : congested. O ral cavity : no erythema or exudate seen on pharynx. N ramón : supple, no cervical lymphadenopathy.?Heart : RRR. L ungs: decrease in bases posteriorly. Assessment: * Assessment: 1. Ernesto leon - J40 (Primary) Plan: * Treatment: Value Reference Range w bc 8.5 3.5 - 10 * l ym 17.3 15 - 50 * m id 4.3 2 - 15 * g ran 78.4 35 - 80 * r bc 4.78 3.5 - 5.5 * h gb 11.6 11.5 - 16.5 * h ct 35.2 35 - 55 * m cv 73.6 75 - 100 * m ch 24.2 25 - 35 * m chc 32.9 31 - 38 * p lat 272 100 - 400 * Karo Colon 02/10/2024 9:11 :54 AM > Provider reviewed results while patient in office.AmadorAdiaSulma 02/10/2024 1:31:08 PM > ?LAB: TEN-Upper Respiratory PCR (Collection Date & Time - 02/10/2024)? Abnormal; Rhinovirus* Sulma Amador 02/13/2024 8:49:27 AM > I spoke with Karo and reported results Notes: fluids, rest, supportive measures for fever/symptom relief; will try Mucinex DM and airsuprainhaler?? * Procedure Codes: 3 6416 CAPILLARY BLOOD DRAW, 45889 CBC WITH AUTO DIFF * Follow Up: p rn * Images: Billing Information: * Visit Code: 18808 Office Visit, Est Pt., Level 3. * Procedure Codes: 50976 CAPILLARY BLOOD DRAW. 82760 CBC WITH AUTO DIFF. * Electronic signature of Lucy zamora Perry , LINK KNITTING MACHINE OPERATOR on 03/21/2025 at 06:19 PM EST Sign off status: Pending * Provider: SMITH Talley Date: 0 02/10/2024 Generated for Printi ng/Faxing/eTransmitting on: 1 05/21/2024 06:19 PM EST History and Physical Notes * HPI (History of Present Illness) Category Sub-Category Detail Notes Category Not es ENT/respiratory facial pain/pressure eati ng and drinking OK; taking bromfed which does not help ear pain right cough greenish yellow sput um production Fever post nasal drainage headache chest congestion occasional tightness in chest rhinorrhea nasal congestion runny nose, green dr motta, off and on smoking body aches Examination Category Sub-Category Detail Notes Category Not es ENT/Respiratory Oral cavity : no erythema or exudate s een on pharynx Ears: Roight TM and canal appear normal; left TM with blue ET; canal appears normal Neck : supple, no cervical lymphadenopathy Heart : RRR Lungs: decrease in bases po steriorly General Appearance: well nourished and h ydrated, alert, active Nose : congested Eyes: sclera and conjuncti va clear
--- OUTSIDE RECORDS SUMMARY | 2024-03-17 08:15 | XMS_ITS ---
Author Organization [facility] Address [address] [place] [phone] Care Team Providers Care Dump Grounds Checker Name Role Phone Nicci Baker Primary Care Provider [phone] Allergies No Known Allergies Results Component Value [...] 03/17/2024 Encounters Encounter Location Date Provider Diagnosis [facility] [address] [facility] [address] [place] [phone] 03/17/2024 Nicci Samuel Acute URI J06.9 Assessments [...] Notes * DUNIA, ShoaibabiliokizzyDOB:2000 (24 yo F)Acc No.[id number]:03/17/2024 Progress Notes Patient: Karo BARRON Provider: MONA He :2000 A ge:23 Y S ex:Female Date:03/17/2024 Phone: Address:[address] [place], [place] [address] Subjective: * Chief Complaints: * 1 . [...] Procedure Codes: 3 6416 CAPILLARY BLOOD DRAW, 39954 CBC WITH AUTO DIFF * Follow Up: p rn * Images: Billing Information: * Visit Code: 95301 Office Visit, Est Pt., Level 3. * Procedure Codes: 12716 CAPILLARY BLOOD DRAW. 04484 CBC WITH AUTO DIFF. * Electronic signature of MONA Jolley on 03/21/2025 at 06:17 PM EST Sign off status: Pending * Provider: MONA He Date: Generated for Printi ng/Faxing/eTransmitting on: 05/21/2024 06:17 PM EST History and Physical Notes * [...]
--- OUTSIDE RECORDS SUMMARY | 2024-06-23 08:00 | XMS_ITS ---
Author Organization [facility] Address [address] [facility] [address] [place] [phone] Care Team Providers Care Avionics Technician Name Role Phone Nicci Baker Primary Care [...] Encounter Location Date Provider Diagnosis [facility] [address] [place] [phone] 06/23/2024 Nicci Baker Vitamin B12 deficien cy E53.8 Assessments Encounter Date Diagnosis (ICD Code) Assessment Notes Treatment Notes Treatment Clinical Notes Section Notes 06/23/2024 Vitamin B12 deficiency (ICD-10 - E53.8) Plan Of Treatment No Information Medications Administered Medication Instructions Date of Administration Dosage Notes B-12 06/23/2024 1 mL Progress Notes * Robbi COLONB:2000 (24 yo F)Acc No.[id number]:06/23/2024 Patient: Karo BARRON Provider: MONA He :2000 A ge:23 Y S ex:Female Date:06/23/2024 Phone: Address:[address] [place] [address] [place], [id number] Subjective: * Chief Complaints: * 1 . [...] deficiency) * Procedure Codes: J 3420 B-12, 93229 ADMINISTRATION OF INJECTION * Images: Billing Information: * Visit Code: * Procedure Codes: J3420 B-12. 99819 ADMINISTRATION OF INJECTION. * Electronic signature of MONA Jolley on 03/21/2025 at 06:18 PM EST Sign off status: Pending * Provider: MONA He Date: 0 06/23/2024 Generated for Shantanu wong/Alondra/eTsandysmtamica on: 1 05/21/2024 06:18 PM EST
--- OUTSIDE RECORDS SUMMARY | 2024-08-19 10:15 | XMS_ITS ---
Author [facility] Address [address] [facility] [address] [place] [id number] Care Team Providers Care Salesperson Furs Name Role Phone Iraj Bakera Primary Care Provider Allergies No Known Allergies [...] date:08/26/2024 02:10:10 PM Interpretation:Negative Performing Lab: Notes/Report: CLIA: [id number] Phoenix Schwarz MD, Material Manager [address] [place] [address] [address], [address], [place] [address] Test performed by [facility] B burgdorferi (Lyme Disease) IgG Negative Negative B burgdorferi (Lyme Disease) IgM Negative Negative P-Comprehensive Metabolic Pa gene (CMP) Reviewed date:08/26/2024 02:10:10 PM Interpretation:Glu 101 Performing Lab: Notes/Report: Test performed by [facility] [address] [place] [address] [address], [address], [place] [address] Phoenix Schwarz MD, Material Manager CLIA: [id number] Sodium 141 135-145 mmol/L Potassium 4.1 3.5-5.3 [...] mg/dL A/G Ratio 1.5 1.1-2.5 [facility]th[facility] Panel, [facility] Reviewed date:08/26/2024 02:10:10 PM Interpretation:CRP 0.81 Performing Lab: Notes/Report: Test performed by [facility] [address] [facility] , [address], [place] [address] Phoenix Schwarz MD, Material Manager CLIA: [id number] Rheumatoid Factor <10 <14.1 IU/mL C-Reactive Protein (CRP) 0.81 <0.50 mg/dL Antinuclear Antibodies (EVER) Screen, Reflex EVER 9 Panel Negative Negative This test is performed by Multiplex Bead Immunoassay methodology. Antinuclear Antibodies (EVER) Result Note SEE COMMENT For positive Autoantibodies, please refer to the interpretive chart here: [email or web address] [email or web address] CCP Antibodies <0.5 <0.5-3.0 U/mL [...] W/U Status Risk Notes Problem Morbid obesity (340673210) Obesity, morbid, BMI 40.0-49.9 (E66.01) Active confirmed Vital Signs Weight 335 lbs 08/19/2024 Blood pressure systolic 130 mm Hg 08/20/19 25 Blood pressure diastolic 80 mm Hg 025 Heart Rate 100 /min 08/19/2024 Height 69.75 in 08/19/2024 BMI 48.41 kg/m2 08/19/2024 Encounters Encounter Location Date Provider Diagnosis [facility] [address] [facility] [address] [place] [address], [place] [id number] 08/19/2024 Nicci Baker Polyarthralgia M25.5 0 and [...] Notes * Karo COLONDOB:2000 (24 yo F)Acc No.[id number]:08/19/2024 Progress Notes Patient: Karo BARRON Provider: MONA He :2000 A ge:23 Y S ex:Female Date:08/19/2024 Phone: Address:[address] [place], [place] [address]Adolfo [facility] Subjective: * Chief Complaints: * 1 . [...] (Lyme Disease) IgM Negative Negative - * Macria Nash 08/26/2024 02: 10:02 PM > See [...] Flu Test- Nasal Swab, Modifiers: QW , 85523 CBC WITH AUTO DIFF, 89232 VENIPUNCT, ROUTINE*, 3075F SYST BP GE 130 - 139MM HG, 3079F DIAST BP 80-89 MM HG * Follow Up: v ia phone to report test results * Images: Billing Information: * Visit Code: 74170 Office Visit, Est Pt., Level 3. * Procedure Codes: 76807 Flu Test- Nasal Swab. Modifiers: QW 91543 CBC WITH AUTO DIFF. 71543 VENIPUNCT, ROUTINE*. 3075F SYST BP GE 130 - 139MM HG. 3079F DIAST BP 80-89 MM HG. * Electronic signature of MONA Jolley on 03/21/2025 at 06:18 PM EST Sign off status: Pending * Provider: MONA He Date: 0 08/19/2024 Generated for Shantanu wong/Alondra/Donnie on: 1 05/21/2024 06:18 PM EST History and Physical Notes * [...]
--- OUTSIDE RECORDS SUMMARY | 2024-08-24 03:55 | XMS_ITS ---
Author Organization [facility] Address [address] [facility] [address] [place] [id number] Care Team Providers Care Leather Scraper Name Role Phone Nicci Baker Primary Care Provider REASON FOR VISIT Lab Draw Encounters Encounter Location Date Provider Diagnosis [facility] [address] [place] [id number] 08/24/2024 Nicci Baker Plan Of Treatment No Information Progress Notes * Karo COLONDOB:2000 (24 yo F)Acc No.[id number]:08/24/2024 Patient: Shoaib BARRONssica Provider: MONA He :2000 A ge:23 Y S ex:Female Date:08/24/2024 Phone: Address:[place] Subjective: * Chief Complaints: * 1 . Lab Draw. * Medical History: Objective: * Vitals: Assessment: Plan: * Treatment: * Images: Billing Information: * Visit Code: * Procedure Codes: * Electronic signature of MONA Jolley on 03/21/2025 at 06:19 PM EST Sign off status: Pending * Provider: MONA He Date: 0 08/24/2024 Generated for Shantanu wong/Alondra/eTsandysmitting on: 05/21/2024 06:19 PM EST
--- OUTSIDE RECORDS SUMMARY | 2024-11-18 11:00 | XMS_ITS ---
Author Organization [facility] Address [address] [facility] [address] [place] [phone] Care Team Providers Care Second Baller Name Role Phone Nicci Baker Primary Care Provider [phone] Allergies No Known Allergies REASON FOR VISIT [...] Encounter Location Date Provider Diagnosis [facility] [address] [place] [id number] 11/18/2024 Nicci Baker History of mastoidit is Z86.69 Assessments Encounter Date Diagnosis (ICD Code) Assessment Notes Treatment Notes Treatment Clinical Notes Section Notes 11/18/2024 History of mastoiditis (ICD-10 - Z86.69) Patient is going to try to get in to see ENT next week at [facility]. She cannot see Dr. Fabian for 3 weeks. Plan Of Treatment Medication Medication Name Sig Start Date Stop Date Notes Cefdinir 300 MG 1 cap(s) Orally Two times a day; Duration: 10 days 11/18/2024 Treatment Notes Assessment Notes History of mastoiditis Patient is going to try to get in to see ENT next week at [facility]. She cannot see Dr. Fabian for 3 weeks. Next Appt Details Follow Up: with ENT, Reason: Progress Notes * Karo COLONDOB:2000 (24 yo F)Acc No.[id number]:11/18/2024 Progress Notes Patient: Karo BARRON Provider: MONA He :2000 A ge:23 Y S ex:Female Date:11/18/2024 Phone: Address:[address] [place], [place] [address], [phone] Subjective: * Chief Complaints: * 1 . [...] < 90MM HG * Follow Up: w [facility] ENT * Images: Billing Information: * Visit Code: 72531 Office Visit, Est Pt., Level 3. * [...] 0 11/18/2024 Generated for Shantanu wong/Alondra/Richarditting on: 05/21/2024 06:18 PM EST History and Physical [...]
--- OUTSIDE RECORDS SUMMARY | 2025-03-17 08:15 | XMS_ITS ---
Author Organization [facility] Address [address] [facility] [address] [place] [phone] Care Team Providers Care Marketing Communications Leader Name Role Phone Nicci Baker Primary Care Provider Allergies No Known Allergies REASON FOR VISIT Sore Throat and Dry Cough Encounters Encounter Location Date Provider Diagnosis [place] [address] [place] [id number] 03/17/2025 Nicci Baker Plan Of Treatment No Information Progress Notes * ISAIAH TierakizzyDOB:2000 (24 yo F)Acc No.[id number]:03/17/2025 Progress Notes Patient: Karo BARRON Provider: MONA He :2000 A ge:24 Y S ex:Female Date:03/17/2025 Phone: Address[place] Subjective: * Chief Complaints: * 1 . [...] He Date: Generated for Shantanu wong/Alondra/Donnie on: 05/21/2024 06:17 PM EST
--- OUTSIDE RECORDS SUMMARY | 2025-03-21 18:17 | XMS_ITS | Clinical Summary ---
Author Organization [facility] Address [address] [place] [address] Phone Care Team Providers Care Exhaust Worker Name Role Phone Jasmeet SANTIAGO, Bhavana Maynard Unavailable Conditions or Problems Problem Name Problem Code Onset Date Status Entry Date Provider Comment Standard Description Annotate Ear pain, left 6946014941 (SNOMED CT) 06/01 Active 06/01 Cesar Argueta MD Otalgia of left ear Acute mastoiditis, left 841404815 (SNOMED CT) 06/01 Active 06/01 Cesar Argueta MD Acute mastoiditis Screening for HIV 050473297 (SNOMED CT) 12/17 Active 12/17 Gorge Handy Procedure carried out on subject Acute recurrent suppurative otitis media, left 600186906 (SNOMED CT) 12/04 Active 12/04 Sasha Malik Recurrent acute suppurative otitis media Acute recurrent serous otitis media, left 622346373 (SNOMED CT) 12/03 Active 12/03 Sasha Malik Acute non-suppurat gokul serous otitis media Serratia marcescens infection B96.89 (ICD-10-CM) 12/03 Active 12/03 Cesar Argueta MD Other specified bacterial agents as the cause of diseases classified elsewhere Facial swelling 394229058 (SNOMED CT) 12/03 Active 12/03 Aida Argueta Facial swelling Recurrent otitis media (ROM) 3432501775574 104 (SNOMED CT) 12/03 Inactive 12/03 Aida Argueta Otitis media of right ear Chronic mastoiditis, left 02181988 (SNOMED CT) 12/03 Active 12/03 Lydia Medrano Chronic mastoiditis Medications Medication Instructions Start Date Stop Date Generic Name NDC Provider ceftriaxone recon kikanoemi Rocephin 2gm IV Q 24hrs/ OPAT 06/01 ceftriaxone recon katy espana recon solnoemi Rocephin 2gm IV Q 24hrs INPAT 06/01 ceftriaxone recon katy Gonzales METRONIDAZOLE 500 MG TABS Take 1 tablet by mouth three times a day 06/01 metronidazole 78397906692 Cesar Argueta MD WEGOVY 0.5 MG/0.5ML SOAJ 06/01 semaglutide (weight loss) 36816770407 Lynn Jarvis HYDROCHLOROTHIAZIDE 12.5 MG TABS 06/01 [facility] 17694679655 [facility] VENLAFAXINE HCL 37.5 MG TABS 06/01 venlafaxine 69691122245 [facility] PRISTIQ 100 MG EW73F-GBS once a day desvenlafaxine succinate 52007763861 [facility] ZOSYN 4-0.5 GM/100ML SOLN Q 8 hrs/OPAT 01/26 piperacillin-tazoba ctam-dextrs 61328944752 Bhavana Alamo RN WEGOVY 0.5 MG/0.5ML SOAJ 06/01 semaglutide (weight loss) 87444646019 Farrah Gunjan VENLAFAXINE HCL 37.5 MG TABS 06/01 venlafaxine 31104849455 Farrah Gunjan HYDROCHLOROTHIAZIDE 12.5 MG TABS 02/17 hydrochlorothiazide 21240974513 Farrah Gunjan Medications Administered No information available. [...] Procedures Code Procedure Name Date Entry Date CPT-60506 CMP [id number] CBC with Differential 2024 CPT-17008 C- reactive protein CPT-23447 Sedimentation Rate (ESR) 202 09/17/27 CPT-82415 CMP [id number] CBC with Differential 2024 CPT-40984 C- reactive protein CPT-94899 Sedimentation Rate (ESR) 09/16/20 CPT-sl STAT Labs [id number] CBC with Differential 2024 CPT-12351 CMP CPT-21406 C- reactive protein CPT-87457 Sedimentation Rate (ESR) 09/17/15 CPT- stat weekly Stat Weekly Labs CPT-79978 X-Ray, Chest (PICC Placement only) 06/02 CPT-22010 CMP [id number] CBC with Differential 2024 CPT-21812 C- reactive protein CPT-43613 Sedimentation Rate (ESR) 09/16/13 CPT-sl STAT Labs CPT-sl STAT Labs CPT-sl STAT Labs CPT-18181 CMP [id number] CBC with Differential 2023 CPT-95639 C- reactive protein CPT-37914 Sedimentation Rate (ESR) 08/24/14 CPT-sl STAT Labs CPT-sl STAT Labs CPT-43799 CMP [id number] CBC with Differential 2023 CPT-59974 C- reactive protein CPT-84424 Sedimentation Rate (ESR) 202 08/23/24 CPT- stat weekly Stat Weekly Labs CPT-sl STAT Labs CPT-sl STAT Labs CPT-01170 CMP [id number] CBC with Differential 2023 CPT-44070 C- reactive protein CPT-12965 Sedimentation Rate (ESR) 202 08/23/17 Vital Signs [...]
--- OUTSIDE RECORDS SUMMARY | 2025-03-21 18:18 | XMS_ITS | Clinical Summary ---
Author Organization [facility] Address [address] [id number] Care Team Providers Care Load Dropper Name Role Phone Nicci Baker Primary Care Provider [phone] Social History Tobacco Use Types Packs/Day Years [...] patient's age to complete this topic Insurance 135[place] [id number] [facility] PPO Member Subscriber Plan / Payer (Ef fective 2023-Present) Name:Karo Colon Relation to Subscriber:Spouse Name:FAVIAN COLON Date of :1998 (Home) Address: [address] [place], [place] [address] [address] Payer ID:[id number] (NAIC) Type:Not on file Address: [address] [place] [id number] Care Teams Load Dropper Relationship Specialty Start Date End Date Nicci Baker PA [address] [place] [address] [facility] [id number] PCP - General Physician Acidizer Helper 12/04/23
--- OUTSIDE RECORDS SUMMARY | 2025-03-21 18:18 | XMS_ITS | Data Portability ---
Author Organization [place] [facility] Address [address] [facility] [address] [place] [address] Care Team Providers Care Line Locator Name Role Phone BERNARDOCURTIS TRINITY Primary Care [...] %-0.1 % ear drops,zaragoza spension 2023 024 [facility], [address] [place] [address] [place], [id number], 12/04/2023 17:20:00 Patient TargetsNo targets recorded. Patient Instructions Encounter Date Encounter Id Patient Instructions Last Modified By Organization Details Last Modified Time 12/04/[id number] of tempora l bone reviewed [...] mastoidectomy [email or web address] Not available 12/04/2023 12:48:07 01/01/2024 [id number] 1. Dae Photos obtained in office today 2. Ordered CT scan of the Temporal Bone 3. F/u with CT results in 1 month [email or web address] Not available 01/01/2024 13:44:11 09/02/2024 [id number] 1. Most recent C T of temporal [...] we may get an opinion from the [facility] regarding mastoid exploration. She might have none otogenic otalgia [email or web address] Not available 09/02/2024 17:27:50 Reason for Referral None Reported. Results Created Date Observation Date Name Description Value Unit Range Abnormal Flag Note LastModifiedBy Organization Detail LastModifiedTime 01/09/20 24 01/09/2024 CT, tempo ral bone, w/o contr ast [place] [facility] [address] [place] [address] Stephenie palomino Name: BELEM palomino : 001 [...] were also obtain ed. 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 BARCODE Not Available 2024 08:58:28 Result Notes Documentation Provider Name and Address Organization Details Recorded Time Ct, Temporal Bone, W/o Contrast : [address] [place] [address] Patient Name: JERED COLON Patient : 2000 [...] Jovany Nunes MD K PIMENTEL MD [address] [place], [address], [facility] 01/12/2024 08:37:43 Procedures Surgical History Date Name Laterality Status Provider Name and Address Organization Details Recorded Time 09/03/19 25 Tympanogram completed GINA ROMAN, CHERRY [address] [place], [address], [facility] 09/02/2024 13:45:55 09/03/19 25 Audiogram completed CHERRY HORTON [address] [place], [address], [facility] 09/02/2024 13:45:53 09/03/19 25 [facility] 09/02/2024 14:15:26 12/04/19 24 Binocular [facility]scopy [facility] 12/04/2023 12:43:44 section completed Kaylin Cao [facility] 12/04/2023 11:01:59 cholecystectomy completed Kaylin Delvis GIBSON [facility] 12/04/2023 11:02:13 Imaging Results None recorded. Procedure [...] Updated DateTime 5 177.8 cm 47.8 kg/m2 610642. 26 g 97.4 [degF] 82 /min 139/93 mm[Hg] Gema [facility] 5 13:13:06 Date Recorded Body height Body mass index (BMI) Body weight Heart rate Systolic And Diastolic Provider Name and Address Organization Details Last Updated DateTime 12/04/2023 10.16 cm 247.2 kg/m2 2551.46 g 83 /min 147/111 mm[Hg] Kaylin Edmondson [facility] 12/04/2023 10:59:12 Date Recorded Body height Body mass index (BMI) Body weight Body temperature Heart rate Systolic And Diastolic Provider Name and Address Organization Details Last Updated DateTime 4 177.8 cm 46.8 kg/m2 687238. 11 g 97.3 [degF] 97 /min 113/87 mm[Hg] [facility] 4 13:21:57 Social History None recorded. Functional Status Question Answer Note LastModified by Organizat ion Details LastModified Time What is your level of alcohol consumption? Occasional [email or web address] Information not available 12/04/2023 Mental Status None recorded. Family History Nothing Reported. Medical History Condition Response Kidney Stones N Hyperthyroidism N Heart Arrhythmia N Emphysema N Esophagus/swallowing troubles N Depression Y Lung Disease N Hypothyroidism N Glaucoma N Anesthesia Complications N Anxiety Disorder Y Hearing Loss N Arthritis N Acid Reflux (GERD) N Cancer N [...] Stomach trouble N Ulcers N Heart Attack ([place]) N Diabetes N Rheumatic Fever N Bleeding [...] ICD10 Code Diagnosis IMO Codes Diagnosis Note [id number] DAREK PIMENTEL MD [facility] [address] [place] [address] 12/04/2023 09:29:39 12/04/2023 13:13:42 Bilateral earache 892202829 H92.03 Chronic le ft mastoiditis 7587337327 907940 H70.[address] temporal bone = opacificat ion left mastoid cavity [id number] DAREK PIMENTEL MD [facility] [address] [place] [address] 01/01/2024 13:11:08 01/08/2024 11:04:06 Chronic left mastoiditis 6302290909 356151 H70.[address] temporal bone = opacificat ion left mastoid cavity Bilateral earache 885570 003 H92.03 [id number] DAREK PIMENTEL MD [facility] [address] [place] [address] 09/02/2024 13:04:52 09/02/2024 14:24:09 Chronic left mastoiditis 3599064424 944403 H70.[address] temporal bone = opacificat ion left mastoid cavity01/08 CT temporal = There is a small amount of fluid in the left mastoid air cells. Thetempora l bones are otherwise normal in appearance . [id number] CHERRY HORTON [facility] [address] [place] [address] 09/02/2024 13:44:47 09/03/2024 04:39:54 Dysfunction of left eustachian tube 2351962888 386892 H69.92 58680372 Tinnitus of left ear 295 0674637 106 H93.12 5251940 Mixed cond uctive AND sensorineural hearing loss 47981414 H90.A32 70972670 Bilateral hearing loss 28929419 H90.A21 [id number] Health Concerns Section Related Observation LastModified by Organization Detai ls LastModified Time None Recorded Concern Status LastModified by Organization Details LastModified Time None Recorded Advance Directives Directive None Recorded Payers Insurance Date Sequence Insurance Name Policy Number Policy Mcmanus Covered Member ID Mcmanus Member ID Guarantor Name 03/05/2025 1 [place]) [id number] Federico Colon [id number] Jered Colon Notes Date Note Type Note Provider Name and Address Organization Details Recorded Time 12/04/2023 text/html ROS as noted in the HPI Jered Colon (23F) visits our office for a a consultation regarding her left ear. She has had recurring infections and pain for 3 months. [facility]23 for complaints of [...] opacification left mastoid cavity DAREK PIMENTEL MD [address] [place] [address] [place], [address], [facility] 12/04/2023 13:00:07 01/01/2024 text/html Jered visits us in office today to follow up on her left mastoiditis. Pt had a pic line placed in the right arm for treatement of an infection. Pain had subsided for a few weeks, but returned in the past few days. Pt had a CT scan about 4 weeks ago. DAREK PIMENTEL MD [facility], [address], [facility] 01/02/2024 15:44:38 09/02/2024 text/html ROS as [...] Rocephin for 7 weeks. DAREK PIMENTEL MD [address] [place] [address], [place], [address], [facility] 09/02/2024 17:28:07 OBGyn Episode No OBEpisode recorded.
--- OUTSIDE RECORDS SUMMARY | 2025-03-21 18:20 | XMS_ITS | Patient Health Record ---
Author Organization [facility] Address [address] [facility] [address] [place] [id number] Care Team Providers Care Supervisor Volunteer Services Name Role Phone Nicci Baker Primary Care [...] Performing Lab: Notes/Report: Test performed by [employer] [address] [place], [place] [address] [address] , [address], [place] [address] Phoenix Schwarz MD, Tugboat Dispatcher CLIA: [id number] B burgdorferi (Lyme Disease) IgG Negative Negative B burgdorferi (Lyme Disease) IgM Negative Negative P-Comprehensive Metabolic Pa gene (CMP) Reviewed date:08/26/2024 02:10:10 PM Interpretation:Glu 101 Performing Lab: Notes/Report: Test performed by [employer] [address] [place] [address] , [place] [address] Phoenix Schwarz MD, Tugboat Dispatcher CLIA: [id number] Sodium 141 135-145 mmol/L Potassium 4.1 3.5-5.3 [...] mg/dL A/G Ratio 1.5 1.1-2.5 [facility] Reviewed date:08/26/2024 02:10:10 PM Interpretation:CRP 0.81 Performing Lab: Notes/Report: Test performed by [employer] [address] [place], [place] [address] [address] , [place] [address] Phoenix Schwarz MD, Tugboat Dispatcher CLIA: [id number] Rheumatoid Factor <10 <14.1 IU/mL C-Reactive Protein (CRP) 0.81 <0.50 mg/dL Antinuclear Antibodies (EVER) Screen, Reflex EVER 9 Panel Negative Negative This test is performed by Multiplex Bead Immunoassay methodology. Antinuclear Antibodies (EVER) Result Note SEE COMMENT For positive Autoantibodies, please refer to the interpretive chart here: [email or web address] CCP Antibodies <0.5 <0.5-3.0 U/mL Erythrocyte Sedimentation Rate (ESR), Automated Specimen received beyond stability.. Test cannot be performed. Acceptable stability from collection is [24 hours]. P-Sed Rate (ESR) Reviewed date:08/26/2024 02:10:10 PM Interpretation:8 Performing Lab: Notes/Report: Test performed by [employer] [address] [place], [place] [address] [place] , [place] [id number] Phoenix Schwarz MD, Tugboat Dispatcher CLIA: [id number] Erythrocyte Sedimentation Rate (ESR), Automated 8 <26 [...] Performing Lab: Notes/Report: neg strep test neg CT scan : Temporal bones w/ and w/o IV contrast Reviewed date:05/26/2024 02:38:23 PM Interpretation:not performed due to insurance Performing Lab: Notes/Report: not performed due to insurance H-TSH Reviewed date:06/16/2024 09:14:56 AM Interpretation:Normal Performing [...] Status Risk Notes Problem Gastroesophageal reflux disease (544938945) GERD (gastroesophageal reflux disease) (K21.9) Active confirmed Problem Hypertension (45139014) HTN (hypertension) (I10) Active confirmed Problem Hyperlipidemia (35281941) Hyperlipidemia (E78.5) Active confirmed Problem Vitamin D deficiency (60003669) Vitamin D deficiency (E55.9) Active confirmed Problem Paresthesia (93181101) Paresthesia (R20.2) Active confirmed Problem Mixed anxiety and depressive disorder (359364705) Depression with anxiety (F41.8) Active confirmed Problem Hearing loss (33635425) Hearing loss (H91.90) Active confirmed Problem Amenorrhea (79291300) Amenorrhea (N91.2) Active confirmed Problem Body mass index 40+ - severely obese (962793964) BMI 45.0-49.9, adult (Z68.42) Active confirmed Problem Migraine (78814782) Migraine wit hout status migrainosus, not intractable, unspecified migraine type (G43.909) Active confirmed Problem Anemia (772847388) Anemia, unspecified type (D64.9) Active confirmed Problem Morbid obesity (973679927) Obesity, morbid, BMI 40.0-49.9 (E66.01) Active confirmed Problem Insulin resistance (267244130) Insulin resistance (E88.81) Active confirmed Problem Chronic serous otitis media (15499637) Left chronic serous otitis media (H65.22) Active confirmed Problem Refractory migraine without aura (047438157) Intractable migraine without aura and without status migrainosus (G43.019) Active confirmed Problem Anxiety depression (217716927) Anxiety with depression (F41.8) Active confirmed Problem Major depression, single episode (06357267) Major depressive disorder with current active episode, unspecified depression episode severity, unspecified whether recurrent (F32.9) Active confirmed Vital Signs Heart Rate 77 /min 11/18/2024 Blood pressure diastolic 82 mm Hg 11/18/2024 Height 69.75 in 11/18/2024 Blood pressure systolic 130 mm Hg 11/18/2024 Weight 336 lbs 11/18/2024 BMI 48.55 kg/m2 11/18/2024 Encounters Encounter Location Date Provider Diagnosis [facility] [address] [facility] [address] [place] [id number] 06/23/2024 Nicci Baker Vitamin B12 deficien cy E53.8 [facility] [address] [facility] [address] [place], [place] [id number] 07/01/2024 Nicciconstance Baker Acute URI J06.9 [facility] [address] [facility] [address] [place], [place] [id number] 08/19/2024 Nicciconstance Baker Polyarthralgia M25.5 0 and Obesity, morbid, BMI 40.0-49.9 E66.01 [facility] [address] [facility] [address] [place] [id number] 08/24/2024 Nicci Crowdy [facility] [address] [place], [place] [id number] 11/18/2024 Nicci Crowdy History of mastoidit is Z86.69 [facility] [address] [place], [place] [id number] 05/26/2024 Nicci Crowdy History of mastoidit is Z86.69 [facility] [address] [place] [id number] 06/02/2024 Nicci Crowdy [facility] [address] [place] [id number] 06/11/2024 Nicci Crowdy HTN (hypertension) I 10 ; Iron deficiency E61.1 ; Vitamin D deficiency E55.9 ; Diabetes mellitus screening Z13.1 ; Anemia, unspecified type D64.9 ; Thyroid disorder screen Z13.29 ; Hyperlipidemia E78.5 and Vitamin B12 deficiency E53.8 [facility] [address] [facility] [address] [place] [id number] 06/16/2024 Nicci Crowdy [facility] [address] [place] [id number] 06/16/2024 Nicci Crowdy [facility] [address] [place] [id number] 07/05/2024 Nicci Crowdy [facility] [address] [facility] [address] [place] [id number] 08/26/2024 Nicci Crowdy [facility] [address] [place] [id number] 10/01/2024 Nicci Crowdy [facility] [address] [facility] [address] [place], [place] [id number] 10/06/2024 Nicci Crowdy Assessments Encounter Date Diagnosis (ICD Code) Assessment Notes Treatment Notes Treatment Clinical Notes Section Notes 05/26/2024 History of mastoiditis (ICD-10 - Z86.69) 06/11/2024 HTN (hypertension) (ICD-10 - I10) 06/23/2024 Vitamin B12 deficiency (ICD-10 - E53.8) 07/01/2024 Acute URI (ICD-10 - J06.9) 08/19/2024 Polyarthralgia (ICD-10 - M25.50) 08/19/2024 Obesity, morbid, BMI 40.0-49.9 (ICD-10 - E66.01) 11/18/2024 History of mastoiditis (ICD-10 - Z86.69) Patient is going to try to get in to see ENT next week at [facility]. She cannot see Dr. Fabian for [...] Coverage Start Date Coverage End Date DEEJAY [facility] [address] [place] [address] [id number] 1EA Karo Colon Self - patient is the insured Medications Administered Medication Instructions Date of Administration Dosage Notes B-12 06/23/2024 1 mL Medical (General) History Medical History History ICD Code Hypertension Insulin Resistance COVID 19- 03/23/2021 chronic OM left eAR left mastoiditis Surgical History Surgery Date(Month/Year) [place] Teeth Extractions 07/2019 01/15/2022 cholecystectomy 03/04/2022 C- Section 05/26/2023 left myringotomy tube placement 11/18/2023 Hospitalization History Reason Date(Month/Year) 05/2023 01/2022
[2025-03-21 18:33] VITALS: BMI 46.4
[2025-03-21 18:45] VITALS: BMI 47.4
[2025-03-21 18:58] LABS: Microscopic, Urine URINE MICROSCOPIC (MICROSCOPIC)
[2025-03-21 19:03] LABS: Bilirubin,Urine Negative (Negative); Color,Urine YELLOW (Yellow); Glucose,Urine (UA) Negative (Negative); Ketones,Urine Negative (Negative); Leukocyte Esterase,Urine Negative (Negative); PH,Urine 7.0 (5.0-8.5); Protein,Urine Negative (Negative); Specific Gravity, Urine 1.010 (1.005-1.030); Urobilinogen,Urine 2.0 EU/dl (0.2)
[2025-03-21 19:45] VITALS: BP 134/74; PULSE 53; RESP 18; TEMP 36.9; O2SAT 99
[2025-03-21 19:56] LABS: Bacteria,Urine 3+ /lpf
[2025-03-21 20:00] VITALS: BP 107/57; PULSE 79
[2025-03-21 20:27] LABS: Hematocrit 30.0 % (37.0-47.0); Hemoglobin 10.0 g/dL (12.2-16.2); Immature Granulocytes % 0.4 %; Mean Corpuscular HGB Conc 33.3 g/dL (31.8-35.4); Mean Corpuscular Hemoglobin 27.4 pg (27.0-31.2); Mean Corpuscular Volume 82.2 fl (81-99); Nucleated Red Blood Cells % 0 %; Platelet Count 180 K/mm3 (142-424); Red Blood Count 3.65 M/mm3 (4.20-5.40); Red Cell Distribution Width-SD 58.0 fL; White Blood Count 7.2 K/mm3 (4.8-10.8)
[2025-03-21 20:30] VITALS: BP 125/62; PULSE 109
[2025-03-21 20:35] LABS: Fibrinogen 381 mg/dL (229.9-363.5)
[2025-03-21 20:49] LABS: Alanine Aminotransferase 26 U/L (12-78); Albumin Level 2.9 g/dl (3.5-5.0); Albumin/Globulin Ratio 0.9 (1.1-1.8); Alkaline Phosphatase 84 U/L (38-126); Anion Gap 6.7 mEq/L (5-15); Aspartate Amino Transferase 45 U/L (14-36); Bilirubin,Total 1.1 mg/dl (0.2-1.3); Blood Urea Nitrogen 3 mg/dl (7-17); Calcium 7.7 mg/dl (8.4-10.2); Carbon Dioxide 22 mmol/L (22.0-30.0); Chloride 105 mmol/L (98-107); Creatinine Clearance Estimated 194 mL/min (50-200); Creatinine,Serum 0.50 mg/dl (0.52-1.04); Estimated Glomerular Filt Rate 152 ml/min (>60); GFR (African American) 183 ML/MIN (>60); Globulin 3.3 g/dL (1.3-3.2); Glucose 89 mg/dl (74-100); Potassium 3.7 mmoL/L (3.5-5.1); Sodium 130 mmol/L (136-145); Total Protein,Serum 6.2 g/dl (6.3-8.2); Uric Acid 4.3 mg/dl (2.5-6.2)
== END 2025-03-21 21:40 | disposition home or self-care (01) ==
LOC: OBOUT 18:15 → OB 18:17
PROVIDERS: PCP Physician Assistant; Visit Provider Nurse Practitioner Obstetrics & Gynecology
DX: Z34.83 Encounter for supervision of other normal pregnancy, third trimester (principal); R60.0 Localized edema; Z3A.28 28 weeks gestation of pregnancy
CPT/HCPCS: 80053; 81001; 82570; 84156; 84550; 85025; 85384; 87086; 99213

== ENCOUNTER 2025-03-23 07:53 | Outpatient (CLI) | payer BC, SELFPAY ==
--- OUTSIDE RECORDS SUMMARY | 2024-02-10 04:30 | XMS_ITS ---
Author Organization [facility] Address [address] [place] [id number] Care Team Providers Care Processes Chemical Design Engineer Name Role Phone Nicci Baker Primary Care Provider Sulma Amador Unavailable [phone] Allergies No Known Allergies Results Component Value [...] day; Duration: 30 day(s) Active Vital Signs Weight 322 lbs 02/10/2024 Height 69.75 in 02/10/2024 BMI 46.53 kg/m2 02/10/2024 Encounters Encounter Location Date Provider Diagnosis [facility] [address] [phone] 02/10/2024 Sulma Amador Bronchitis J4 0 Assessments [...] Notes * Karo COLONDOB:2000 (24 yo F)Acc No.[id number]:02/10/2024 Progress Notes Patient: Tiera BARRONica Provider: SMITH Talley :2000 A ge:23 Y S ex:Female Date:02/10/2024 Phone: Address:[address] [place] [address] [place], [place] Pcp:Nicci Baker Subjective: * Chief Complaints: * [...] > Provider reviewed results while patient in office.PerryAdiaSulma 02/10/2024 1:31:08 PM > ?LAB: TEN-Upper Respiratory PCR (Collection Date & Time - 02/10/2024)? Abnormal; Rhinovirus* Sulma Amador 02/13/2024 8:49:27 AM > I spoke with Karo and reported results Notes: fluids, rest, supportive measures for fever/symptom relief; will try Mucinex DM and airsuprainhaler?? * Procedure Codes: 3 6416 CAPILLARY BLOOD DRAW, 45582 CBC WITH AUTO DIFF * Follow Up: p rn * Images: Billing Information: * Visit Code: 41008 Office Visit, Est Pt., Level 3. * Procedure Codes: 98950 CAPILLARY BLOOD DRAW. 96676 CBC WITH AUTO DIFF. * Electronic signature of Lucy zamora Perry , INTERSTATE BUS DISPATCHER on 03/23/2025 at 07:57 AM EST Sign off status: Pending * Provider: SMITH Talley Date: 0 02/10/2024 Generated for Printi ng/Faxing/eTransmitting on: 1 05/23/2024 07:57 AM EST History and Physical Notes * HPI [...]
--- OUTSIDE RECORDS SUMMARY | 2024-03-17 08:15 | XMS_ITS ---
Author Organization [facility] Address [address] [facility] [address] [place] [phone] Care Team Providers Care Photoresist Contact Printer Name Role Phone Nicci Baker Primary Care [...] 03/17/2024 Encounters Encounter Location Date Provider Diagnosis [facility] [address] [facility] [address] [place] [phone] 03/17/2024 Nicci Samuel Acute URI J06.9 Assessments [...] Notes * DUNIA, ShoaibabiliokizzyDOB:2000 (24 yo F)Acc No.[id number]:03/17/2024 Progress Notes Patient: Karo BARRON Provider: MONA He :2000 A ge:23 Y S ex:Female Date:03/17/2024 Phone: Address:[address] [place], [place] [address] Subjective: * Chief Complaints: * 1 . [...] Procedure Codes: 3 6416 CAPILLARY BLOOD DRAW, 86589 CBC WITH AUTO DIFF * Follow Up: p rn * Images: Billing Information: * Visit Code: 08207 Office Visit, Est Pt., Level 3. * Procedure Codes: 48783 CAPILLARY BLOOD DRAW. 88728 CBC WITH AUTO DIFF. * Electronic signature of MONA Jolley on 03/23/2025 at 07:56 AM EST Sign off status: Pending * Provider: MONA He Date: Generated for Printi ng/Faxing/eTransmitting on: 05/23/2024 07:56 AM EST History and Physical Notes * [...]
--- OUTSIDE RECORDS SUMMARY | 2024-06-23 08:00 | XMS_ITS ---
Author Organization [facility] Address [address] [facility] [address] [place] [id number] Care Team Providers Care Awning Hanger Name Role Phone Nicci Baker Primary Care Provider REASON FOR VISIT B12 Shot Medications Medication SIG (Take, Route, Frequency, Duration) Notes Start Date End Date Status Zepbound 12.5 MG/0.5ML 0.5 mL Subcutaneo us; Duration: 28 days Active Vraylar 1.5 MG 1 capsule Orally Onc e a day; Duration: 30 day(s) 01/07/2024 Active Fluconazole 150 MG 1 tablet Orally 06/02/2024 Active Cefdinir 300 MG 1 cap(s) Orally Two times a day; Duration: 7 days 03/17/2024 Active Vitamin B12 1000 MCG 1 tablet Orally Onc e a day 09/26/2023 Active Desvenlafaxine ER 100 MG 1 tablet Orally Once a day Active Vitamin D3 125 MCG (5000 UT) 1 capsule O rally Once a day; Duration: 30 day(s) 09/26/2023 Active hydroCHLOROthiazide 12.5 MG 1 capsule in the morning Orally Once a day; Duration: 90 days 06/02/2023 Active Encounters Encounter Location Date Provider Diagnosis [facility] [address] [place] [id number] 06/23/2024 Nicci Baker Vitamin B12 deficien cy E53.8 Assessments Encounter Date Diagnosis (ICD Code) Assessment Notes Treatment Notes Treatment Clinical Notes Section Notes 06/23/2024 Vitamin B12 deficiency (ICD-10 - E53.8) Plan Of Treatment No Information Medications Administered Medication Instructions Date of Administration Dosage Notes B-12 06/23/2024 1 mL Progress Notes * Robbi COLONB:2000 (24 yo F)Acc No.[id number]:06/23/2024 Patient: Karo BARRON Provider: MONA He :2000 A ge:23 Y S ex:Female Date:06/23/2024 Phone: Address:[address] [place] [address] [place], [id number] Subjective: * Chief Complaints: * 1 . B12 Shot. * Medical History: * Medications: T aking Desvenlafaxine ER 100 [...] capsule Orally Once a day , Taking Cefdinir 300 MG Capsule 1 cap(s) Orally Two times a day , Taking Fluconazole 150 MG Tablet 1 tablet Orally , Taking Zepbound 12.5 MG/0.5ML Solution Auto-injector 0.5 mL Subcutaneous , Discontinued Ondansetron HCl 8 MG Tablet 1 tab(s) Orally every 8 hours prn , Medication List reviewed and reconciled with the patient Objective: * Vitals: Assessment: * Assessment: 1. V itamin B12 deficiency - E53.8 (Primary) Plan: * Treatment: * Therapeutic Injections: B-12 : 1 mL (Route: Intramuscular) given by Melia Lopez on left deltoid (Vitamin B12 deficiency) * Procedure Codes: J 3420 B-12, 69447 ADMINISTRATION OF INJECTION * Images: Billing Information: * Visit Code: * Procedure Codes: J3420 B-12. 75108 ADMINISTRATION OF INJECTION. * Electronic signature of MONA Jolley on 03/23/2025 at 07:56 AM EST Sign off status: Pending * Provider: MONA He Date: 0 06/23/2024 Generated for Shantanu wong/Alondra/eTsandysmtamica on: 1 05/23/2024 07:56 AM EST
--- OUTSIDE RECORDS SUMMARY | 2024-07-01 09:20 | XMS_ITS ---
Author Organization [facility] Address [address] [place] [phone] Care Team Providers Care Electrical Appliance Mechanic Name Role Phone Nicci Baker Primary Care [...] 07/01/2024 Encounters Encounter Location Date Provider Diagnosis [facility] [address] [place] [phone] 07/01/2024 Nicci Baker Acute URI J06.9 Assessments [...] Notes * DUNIA, KaroDOB:2000 (24 yo F)Acc No.[id number]:07/01/2024 Progress Notes Patient: Karo BARRON Provider: MONA He :2000 A ge:23 Y S ex:Female Date:07/01/2024 Phone: Address:[address] [place], [place] [address], [place] Subjective: * Chief Complaints: * 1 . [...] * Procedure Codes: 9 4760 [place], [address] STREP A ASSAY W/OPTIC, Modifiers: QW , 73186 CAPILLARY BLOOD DRAW, 48729 CBC WITH AUTO DIFF, 3074F SYST BP LT 130 MM HG, 3079F DIAST BP 80-89 MM HG * Follow Up: p rn * Images: Billing Information: * Visit Code: 64554 Office Visit, Est Pt., Level 3. * Procedure Codes: [address] [place]. [address] STREP A ASSAY W/OPTIC. Modifiers: QW 62804 CAPILLARY BLOOD DRAW. 69921 CBC WITH AUTO DIFF. 3074F SYST BP LT 130 MM HG. 3079F DIAST BP 80-89 MM HG. * Electronic signature of MONA Jolley on 03/23/2025 at 07:57 AM EST Sign off status: Pending * Provider: MONA He Date: 0 07/01/2024 Generated for Shantanu wong/Alondra/Donnie on: 1 05/23/2024 07:57 AM EST History [...]
--- OUTSIDE RECORDS SUMMARY | 2024-08-19 10:15 | XMS_ITS ---
Author Organization [facility] Address [address] [facility] [address] [place] [id number] Care Team Providers Care Poultry Farm Laborer Name Role Phone Iraj Bakera Primary Care [...] Interpretation:Negative Performing Lab: Notes/Report: Test performed by [facility] [employer] [address], [address], [place] [address] Phoenix Schwarz MD, Agricultural Labor Camp Manager CLIA: [id number] B burgdorferi (Lyme Disease) IgG Negative Negative B burgdorferi (Lyme Disease) IgM Negative Negative P-Comprehensive Metabolic Pa gene (CMP) Reviewed date:08/26/2024 02:10:10 PM Interpretation:Glu 101 Performing Lab: Notes/Report: Test performed by [facility] , [address], [place] [address] Phoenix Schwarz MD, Agricultural Labor Camp Manager CLIA: [id number] Sodium 141 135-145 mmol/L Potassium 4.1 3.5-5.3 [...] mg/dL A/G Ratio 1.5 1.1-2.5 [facility], [facility] Reviewed date:08/26/2024 02:10:10 PM Interpretation:CRP 0.81 Performing Lab: Notes/Report: Test performed by [facility] [address] [facility] , [address], [place] [address] Phoenix Schwarz MD, Agricultural Labor Camp Manager CLIA: [id number] Rheumatoid Factor <10 <14.1 IU/mL C-Reactive Protein (CRP) 0.81 <0.50 mg/dL Antinuclear Antibodies (EVER) Screen, Reflex EVER 9 Panel Negative Negative This test is performed by Multiplex Bead Immunoassay methodology. Antinuclear Antibodies (EVER) Result Note SEE COMMENT For positive Autoantibodies, please refer to the interpretive chart here: [email or web address] [email or web address]/uploads/[email or web address] pretive-Chart.[email or web address] CCP Antibodies <0.5 <0.5-3.0 U/mL [...] W/U Status Risk Notes Problem Morbid obesity (350358416) Obesity, morbid, BMI 40.0-49.9 (E66.01) Active confirmed Vital Signs Weight 335 lbs 08/19/2024 Blood pressure systolic 130 mm Hg 08/20/19 25 Blood pressure diastolic 80 mm Hg 025 Heart Rate 100 /min 08/19/2024 Height 69.75 in 08/19/2024 BMI 48.41 kg/m2 08/19/2024 Encounters Encounter Location Date Provider Diagnosis [facility] [address] [facility] [address] [place] [address], [place] [id number] 08/19/2024 Nicci Baker Polyarthralgia M25.5 0 and [...] Notes * Karo COLONDOB:2000 (24 yo F)Acc No.[id number]:08/19/2024 Progress Notes Patient: Karo BARRON Provider: MONA He :2000 A ge:23 Y S ex:Female Date:08/19/2024 Phone: Address:[address] [place], [place] [address]fo [id number] Subjective: * Chief Complaints: * 1 . [...] Flu Test- Nasal Swab, Modifiers: QW , 65022 CBC WITH AUTO DIFF, 05350 VENIPUNCT, ROUTINE*, 3075F SYST BP GE 130 - 139MM HG, 3079F DIAST BP 80-89 MM HG * Follow Up: v ia phone to report test results * Images: Billing Information: * Visit Code: 24482 Office Visit, Est Pt., Level 3. * Procedure Codes: 59741 Flu Test- Nasal Swab. Modifiers: QW 85554 CBC WITH AUTO DIFF. 87075 VENIPUNCT, ROUTINE*. 3075F SYST BP GE 130 - 139MM HG. 3079F DIAST BP 80-89 MM HG. * Electronic signature of MONA Jolley on 03/23/2025 at 07:56 AM EST Sign off status: Pending * Provider: MONA He Date: 0 08/19/2024 Generated for Shantanu wong/Alondra/Donnie on: 1 05/23/2024 07:56 AM EST History and Physical [...]
--- OUTSIDE RECORDS SUMMARY | 2024-08-24 03:55 | XMS_ITS ---
Author Organization [facility] Address [address] [facility] [address] [place] [phone] Care Team Providers Care Computer System Specialist Name Role Phone Nicci Baker Primary Care Provider [phone] REASON FOR VISIT Lab Draw Encounters Encounter Location Date Provider Diagnosis [facility] [address] [place] [id number] 08/24/2024 Nicci Baker Plan Of Treatment No Information Progress Notes * Karo COLONDOB:2000 (24 yo F)Acc No.[id number]:08/24/2024 Patient: Shoaib BARRONssica Provider: MONA He :2000 A ge:23 Y S ex:Female Date:08/24/2024 Phone: Address:[place] Subjective: * Chief Complaints: * 1 . Lab Draw. * Medical History: Objective: * Vitals: Assessment: Plan: * Treatment: * Images: Billing Information: * Visit Code: * Procedure Codes: * Electronic signature of MONA Jolley on 03/23/2025 at 07:57 AM EST Sign off status: Pending * Provider: MONA He Date: 0 08/24/2024 Generated for Shantanu wnog/Alondra/eTsandysmitting on: 05/23/2024 07:57 AM EST
--- OUTSIDE RECORDS SUMMARY | 2024-11-18 11:00 | XMS_ITS ---
Author Organization [facility] Address 12[address] [facility] [address] [place] [phone] Care Team Providers Care Utility Bill Complaints Investigator Name Role Phone Nicci Baker Primary Care [...] Encounter Location Date Provider Diagnosis [facility] [address] [place] [id number] 11/18/2024 Nicci Baker History of mastoidit is Z86.69 Assessments Encounter Date Diagnosis (ICD Code) Assessment Notes Treatment Notes Treatment Clinical Notes Section Notes 11/18/2024 History of mastoiditis (ICD-10 - Z86.69) Patient is going to try to get in to see ENT next week at [facility]. She cannot see Dr. Fabian for 3 weeks. Plan Of Treatment Medication Medication Name Sig Start Date Stop Date Notes Cefdinir 300 MG 1 cap(s) Orally Two times a day; Duration: 10 days 11/18/2024 Treatment Notes Assessment Notes History of mastoiditis Patient is going to try to get in to see ENT next week at [facility]. She cannot see Dr. Fabian for 3 weeks. Next Appt Details Follow Up: with ENT, Reason: Progress Notes * Karo COLONDOB:2000 (24 yo F)Acc No.[id number]:11/18/2024 Progress Notes Patient: Karo BARRON Provider: MONA He :2000 A ge:23 Y S ex:Female Date:11/18/2024 Phone: Address:[address] [place], [place] [address], [phone] Subjective: * Chief Complaints: * 1 . [...] < 90MM HG * Follow Up: w [facility] ENT * Images: Billing Information: * Visit Code: 13327 Office Visit, Est Pt., Level 3. * [...] 0 11/18/2024 Generated for Shantanu wong/Alondra/Richarditting on: 05/23/2024 07:56 AM EST History and [...]
--- OUTSIDE RECORDS SUMMARY | 2025-03-17 08:15 | XMS_ITS ---
Author Organization [facility] Address [facility] [facility] [address] [place] [phone] Care Team Providers Care Cement Mixer Name Role Phone Nicci Baker Primary Care Provider Allergies No Known Allergies REASON FOR VISIT Sore Throat and Dry Cough Encounters Encounter Location Date Provider Diagnosis [place] [address] [place] [id number] 03/17/2025 Nicci Baker Plan Of Treatment No Information Progress Notes * ISAIAH TierakizzyDOB:2000 (24 yo F)Acc No.[id number]:03/17/2025 Progress Notes Patient: Karo BARRON Provider: MONA He :2000 A ge:24 Y S ex:Female Date:03/17/2025 Phone: Address[place] Subjective: * Chief Complaints: * 1 . [...] He Date: Generated for Shantanu wong/Alondra/Donnie on: 05/23/2024 07:56 AM EST
--- OUTSIDE RECORDS SUMMARY | 2025-03-23 07:56 | XMS_ITS | Clinical Summary ---
Author Organization [facility] Address [address] [place] [address] Phone Care Team Providers Care Physical Education Professor Name Role Phone Jasmeet SANTIAGO, Bhavana Maynard Unavailable Conditions or Problems Problem Name Problem Code Onset Date Status Entry Date Provider Comment Standard Description Annotate Ear pain, left 5896294621 (SNOMED CT) 06/01 Active 06/01 Cesar Argueta MD Otalgia of left ear Acute mastoiditis, left 470133317 (SNOMED CT) 06/01 Active 06/01 Cesar Argueta MD Acute mastoiditis Screening for HIV 553091128 (SNOMED CT) 12/17 Active 12/17 Gorge Handy Procedure carried out on subject Acute recurrent suppurative otitis media, left 289286592 (SNOMED CT) 12/04 Active 12/04 Sasha Malik Recurrent acute suppurative otitis media Acute recurrent serous otitis media, left 545037453 (SNOMED CT) 12/03 Active 12/03 Sasha Malik Acute non-suppurat gokul serous otitis media Serratia marcescens infection B96.89 (ICD-10-CM) 12/03 Active 12/03 Cesar Argueta MD Other specified bacterial agents as the cause of diseases classified elsewhere Facial swelling 333482637 (SNOMED CT) 12/03 Active 12/03 Aida Argueta Facial swelling Recurrent otitis media (ROM) 8877917598029 104 (SNOMED CT) 12/03 Inactive 12/03 Aida Argueta Otitis media of right ear Chronic mastoiditis, left 30728891 (SNOMED CT) 12/03 Active 12/03 Lydia Medrano Chronic mastoiditis Medications Medication Instructions Start Date Stop Date Generic Name NDC Provider ceftriaxone recon kikanoemi Rocephin 2gm IV Q 24hrs/ OPAT 06/01 ceftriaxone recon katy espana recon solnoemi Rocephin 2gm IV Q 24hrs INPAT 06/01 ceftriaxone recon katy Gonzales METRONIDAZOLE 500 MG TABS Take 1 tablet by mouth three times a day 06/01 metronidazole 18885902965 Cesar Argueta MD WEGOVY 0.5 MG/0.5ML SOAJ 06/01 semaglutide (weight loss) [id number] Lynn Jarvis HYDROCHLOROTHIAZIDE 12.5 MG TABS 06/01 [facility]othiaz[facility] 33939121300 [facility] VENLAFAXINE HCL 37.5 MG TABS 06/01 venlafaxine 06417843662 [facility] PRISTIQ 100 MG EP25W-RSB once a day desvenlafaxine succinate 87946362304 [facility] ZOSYN 4-0.5 GM/100ML SOLN Q 8 hrs/OPAT 01/26 piperacillin-tazoba ctam-dextrs 62755984596 Bhavana Alamo RN WEGOVY 0.5 MG/0.5ML SOAJ 06/01 semaglutide (weight loss) 71713094950 Farrah Gunjan VENLAFAXINE HCL 37.5 MG TABS 06/01 venlafaxine 53930502509 Farrah Gunjan HYDROCHLOROTHIAZIDE 12.5 MG TABS 02/17 hydrochlorothiazide 15975477367 Farrah Gunjan Medications Administered No information available. [...] Procedures Code Procedure Name Date Entry Date CPT-94428 CMP [id number] CBC with Differential 2024 CPT-26169 C- reactive protein CPT-10635 Sedimentation Rate (ESR) 202 09/17/27 CPT-07824 CMP [id number] CBC with Differential 2024 CPT-71187 C- reactive protein CPT-82993 Sedimentation Rate (ESR) 09/16/20 CPT-sl STAT Labs [id number] CBC with Differential 2024 CPT-67601 CMP CPT-04678 C- reactive protein CPT-90785 Sedimentation Rate (ESR) 09/17/15 CPT- stat weekly Stat Weekly Labs CPT-32060 X-Ray, Chest (PICC Placement only) 06/02 CPT-64935 CMP [id number] CBC with Differential 2024 CPT-37063 C- reactive protein CPT-17050 Sedimentation Rate (ESR) 09/16/13 CPT-sl STAT Labs CPT-sl STAT Labs CPT-sl STAT Labs CPT-76872 CMP [id number] CBC with Differential 2023 CPT-09162 C- reactive protein CPT-31309 Sedimentation Rate (ESR) 08/24/14 CPT-sl STAT Labs CPT-sl STAT Labs CPT-75979 CMP [id number] CBC with Differential 2023 CPT-22875 C- reactive protein CPT-63820 Sedimentation Rate (ESR) 202 08/23/24 CPT- stat weekly Stat Weekly Labs CPT-sl STAT Labs CPT-sl STAT Labs CPT-01887 CMP [id number] CBC with Differential 2023 CPT-18362 C- reactive protein CPT-35782 Sedimentation Rate (ESR) 202 08/23/17 Vital Signs [...]
--- OUTSIDE RECORDS SUMMARY | 2025-03-23 07:56 | XMS_ITS | Clinical Summary ---
Author Organization [facility] Address [address] [address] Care Team Providers Care Level Vial Inside Grinder Name Role Phone Nicci Baker Primary Care Provider [phone] Social History Tobacco Use Types Packs/Day Years [...] patient's age to complete this topic Insurance 885PAIGE BEDOYA [id number] [facility] PPO Member Subscriber Plan / Payer (Ef fective 2023-Present) Name:Karo Colon Relation to Subscriber:Spouse Name:FAVIAN COLON Date of :1998 (Home) Address: [address] [place], [place] [address] [address] Payer ID:[id number] (NAIC) Type:Not on file Address: [address] [place] [id number] Care Teams Level Vial Inside Grinder Relationship Specialty Start Date End Date Nicci Baker PA [address] [facility] [place] [id number] PCP - General Physician Compressor Operator Portable 12/04/23
--- OUTSIDE RECORDS SUMMARY | 2025-03-23 07:58 | XMS_ITS | Patient Health Record ---
Author [facility] Address [address] [place] [id number] Care Team Providers Care Manager Costing Name Role Phone Nicci Baker Primary Care Provider [phone] Allergies No Known Allergies Results Component Value [...] Interpretation:Negative Performing Lab: Notes/Report: Test performed by [facility] [address], [place] [address] Phoenix Schwarz MD, Strickler Attendant CLIA: [id number] B burgdorferi (Lyme Disease) IgG Negative Negative B burgdorferi (Lyme Disease) IgM Negative Negative P-Comprehensive Metabolic Pa geen (CMP) Reviewed date:08/26/2024 02:10:10 PM Interpretation:Glu 101 Performing Lab: Notes/Report: Test performed by [facility] [address] [place] [address] [address], [place] [address] Phoenix Schwarz MD, Strickler Attendant CLIA: [id number] Sodium 141 135-145 mmol/L Potassium 4.1 3.5-5.3 [...] 0.81 Performing Lab: Notes/Report: Test performed by [facility] [address] [place] [address] [address], [place] [address] Phoenix Schwarz MD, Strickler Attendant CLIA: [id number] Rheumatoid Factor <10 <14.1 IU/mL C-Reactive Protein (CRP) 0.81 <0.50 mg/dL Antinuclear Antibodies (EVER) Screen, Reflex EVER 9 Panel Negative Negative This test is performed by Multiplex Bead Immunoassay methodology. Antinuclear Antibodies (EVER) Result Note SEE COMMENT For positive Autoantibodies, please refer to the interpretive chart here: [email or web address] CCP Antibodies <0.5 <0.5-3.0 U/mL Erythrocyte Sedimentation Rate (ESR), Automated Specimen received beyond stability.. Test cannot be performed. Acceptable stability from collection is [24 hours]. H-VITAMIN D Reviewed date:06/16/2024 09:14:56 AM Interpretation:16.4 Performing Lab: Notes/Report: TVITD 16.4 30-100 ng/mL Deficient <20 ng/mL Insufficient 20-30 ng/mL Sufficient 30-100 ng/mL Potential Toxicity >100 ng/mL H-Iron Reviewed date:06/16/2024 09:14:56 AM Interpretation:44 Performing Lab: Notes/Report: FE 44 37-170 ug/dL H-Ferritin Reviewed date:06/16/2024 09:14:56 AM Interpretation:9.63 Performing Lab: Notes/Report: VALERIE 9.63 6.24-137 ng/ml H-VITAMIN B12 Reviewed date:06/16/2024 09:14:56 AM Interpretation:287 Performing Lab: Notes/Report: VITB12 287 239-931 pg/mL H-Glycohemoglobin A1C Reviewed date:06/16/2024 09:14:56 AM Interpretation:4.9 Performing Lab: Notes/Report: HGBA1C 4.9 4.0-6.0 % < 6% Non-Diabetic Level < 7% Controlled Diabetic Level > 8% Poorly Controlled Diabetic Level H-CMP Reviewed date:06/16/2024 09:14:56 AM Interpretation:Normal Performing [...] HDL 47 40-60 mg/dl CHLHDL 3.5 1-3.5 H-CBC Reviewed date:06/16/2024 09:14:56 AM Interpretation:hgb 11, [...] Performing Lab: Notes/Report: TSH 1.95 0.465-4.68 uIU/mL P-Sed Rate (ESR) Reviewed date:08/26/2024 02:10:10 PM Interpretation:8 Performing Lab: Notes/Report: Test performed by [facility] [address] [place] [address] , [address], [place] [address] Phoenix Schwarz MD, Strickler Attendant CLIA: [id number] Erythrocyte Sedimentation Rate (ESR), Automated 8 <26 [...] Status Risk Notes Problem Gastroesophageal reflux disease (896409839) GERD (gastroesophageal reflux disease) (K21.9) Active confirmed Problem Hypertension (96712919) HTN (hypertension) (I10) Active confirmed Problem Hyperlipidemia (75764960) Hyperlipidemia (E78.5) Active confirmed Problem Vitamin D deficiency (17415249) Vitamin D deficiency (E55.9) Active confirmed Problem Paresthesia (25882352) Paresthesia (R20.2) Active confirmed Problem Mixed anxiety and depressive disorder (643861275) Depression with anxiety (F41.8) Active confirmed Problem Hearing loss (40971066) Hearing loss (H91.90) Active confirmed Problem Amenorrhea (45260888) Amenorrhea (N91.2) Active confirmed Problem Body mass index 40+ - severely obese (451572960) BMI 45.0-49.9, adult (Z68.42) Active confirmed Problem Migraine (95619611) Migraine wit hout status migrainosus, not intractable, unspecified migraine type (G43.909) Active confirmed Problem Anemia (901515026) Anemia, unspecified type (D64.9) Active confirmed Problem Morbid obesity (271024412) Obesity, morbid, BMI 40.0-49.9 (E66.01) Active confirmed Problem Insulin resistance (777230587) Insulin resistance (E88.81) Active confirmed Problem Chronic serous otitis media (78234363) Left chronic serous otitis media (H65.22) Active confirmed Problem Refractory migraine without aura (095076388) Intractable migraine without aura and without status migrainosus (G43.019) Active confirmed Problem Anxiety depression (791449101) Anxiety with depression (F41.8) Active confirmed Problem Major depression, single episode (64135364) Major depressive disorder with current active episode, unspecified depression episode severity, unspecified whether recurrent (F32.9) Active confirmed Vital Signs Heart Rate 77 /min 11/18/2024 Blood pressure diastolic 82 mm Hg 11/18/2024 Height 69.75 in 11/18/2024 Blood pressure systolic 130 mm Hg 11/18/2024 Weight 336 lbs 11/18/2024 BMI 48.55 kg/m2 11/18/2024 Encounters Encounter Location Date Provider Diagnosis [facility] [address] [facility] [address] [place] [id number] 06/23/2024 Nicci Baker Vitamin B12 deficien cy E53.8 [facility] [address] [facility] [address] [place], [place] [id number] 07/01/2024 Nicciconstance Baker Acute URI J06.9 [facility] [address] [facility] [address] [place], [place] [id number] 08/19/2024 Nicciconstance Baker Polyarthralgia M25.5 0 and Obesity, morbid, BMI 40.0-49.9 E66.01 [facility] [address] [facility] [address] [place] [id number] 08/24/2024 Nicci Crowdy [facility] [address] [place], [place] [id number] 11/18/2024 Nicci Crowdy History of mastoidit is Z86.69 [facility] [address] [place] [id number] 05/26/2024 Nicci Crowdy History of mastoidit is Z86.69 [facility] [address] [place] [id number] 06/02/2024 Nicci Crowdy [facility] [address] [place] [id number] 06/11/2024 Nicci Crowdy HTN (hypertension) I 10 ; Iron deficiency E61.1 ; Vitamin D deficiency E55.9 ; Diabetes mellitus screening Z13.1 ; Anemia, unspecified type D64.9 ; Thyroid disorder screen Z13.29 ; Hyperlipidemia E78.5 and Vitamin B12 deficiency E53.8 [facility] [address] [place] [id number] 06/16/2024 Nicci Crowdy [facility] [address] [place] [id number] 06/16/2024 Nicci Crowdy [facility] [address] [place] [id number] 07/05/2024 Nicci Crowdy [facility] [address] [facility] [address] [place] [id number] 08/26/2024 Nicci Crowdy [facility] [address] [place], [place] [id number] 10/01/2024 Nicci Crowdy [facility] [address] [facility] [address] [place] [id number] 10/06/2024 Nicci Crowdy Assessments Encounter Date Diagnosis (ICD Code) Assessment Notes Treatment Notes Treatment Clinical Notes Section Notes 06/11/2024 Iron deficiency (ICD-10 - E61.1) 05/26/2024 History of mastoiditis (ICD-10 - Z86.69) 06/11/2024 HTN (hypertension) (ICD-10 - I10) 06/23/2024 Vitamin B12 deficiency (ICD-10 - E53.8) 07/01/2024 Acute URI (ICD-10 - J06.9) 08/19/2024 Polyarthralgia (ICD-10 - M25.50) 08/19/2024 Obesity, morbid, BMI 40.0-49.9 (ICD-10 - E66.01) 11/18/2024 History of mastoiditis (ICD-10 - Z86.69) Patient is going to try to get in to see ENT next week at [facility]. She cannot see Dr. Fabian [...] Coverage Start Date Coverage End Date DEEJAY [facility] [address] [place] [address] [id number] 1EA Karo Colon Self - patient is the insured Medications Administered Medication Instructions Date of Administration Dosage Notes B-12 06/23/2024 1 mL Medical (General) History Medical History History ICD Code Hypertension Insulin Resistance COVID 19- 03/23/2021 chronic OM left eAR left mastoiditis Surgical History Surgery Date(Month/Year) [place] Teeth Extractions 07/2019 01/15/2022 cholecystectomy 03/04/2022 C- Section 05/26/2023 left myringotomy tube placement 11/18/2023 Hospitalization History Reason Date(Month/Year) 05/2023 01/2022
[2025-03-23 10:11] LABS: Hematocrit 30.2 % (37.0-47.0); Hemoglobin 9.8 g/dL (12.2-16.2); Immature Granulocytes % 0.5 %; Mean Corpuscular HGB Conc 32.5 g/dL (31.8-35.4); Mean Corpuscular Hemoglobin 27.1 pg (27.0-31.2); Mean Corpuscular Volume 83.4 fl (81-99); Nucleated Red Blood Cells % 0 %; Platelet Count 176 K/mm3 (142-424); Red Blood Count 3.62 M/mm3 (4.20-5.40); Red Cell Distribution Width-SD 60.8 fL; White Blood Count 7.4 K/mm3 (4.8-10.8)
[2025-03-23 10:24] LABS: Glucose 1 Hour 109 mg/dL (74-100)
--- NOTE | 2025-03-23 14:00 | US_ITS ---
PROCEDURE: US OB FOLLOW UP CLINICAL INDICATION: growth for maternal obesity LGA COMPARISON: US US OB /MATERNAL DETAIL from 01/24/2025 US US OB FOLLOW UP from 02/10/2025 FINDINGS: Transabdominal sonographic images of the pelvis were obtained. The following parameters are obtained: From her established due date she is 28weeks 2days Viable fetus in the breech presentation with a posterior placenta grade 1. heart rate: 152bpm bpm. Average ultrasound age 29 weeks 2 days Estimated weight 1280 grams, 2 lb 13 oz BPD: 29weeks 4days, 77 percentile HC: 29weeks 5days, 60 percentile AC: 28weeks 5days, 52 percentile FL: 28weeks 5days, 45 percentile HC/AC: 1.12 FL/BPD: 0.74 FL/AC: 0.22 Growth percentile: 56 Amniotic fluid: MVP 4.37 cm No obvious anomalies evident. Stomach, bladder, kidneys, three-vessel cord, four chamber heart appear normal. There is mild unilateral renal pelvis dilation measuring 5.6 mm. IMPRESSION: 1. Viable fetus in the breech presentation with posterior placenta grade 1. 2. The fluid is within normal limits with an MVP 4.37 cm. 3. There has been good interval growth with the fetus currently 56th percentile. 4. There is mild unilateral renal pelvis dilation measuring 5.6 mm. 5. The rest of the limited anatomical scan appears normal. Dictated by: Donnie Oliver MD 03/23/2025 15:00 Donnie Oliver MD in OV 03/23/2025 15:00
[2025-03-23 16:21] LABS: RPR W/RFX Titers Nonreactive (Nonreactive)
== END 2025-03-23 23:59 | disposition home or self-care (01) ==
LOC: RAD 07:53
PROVIDERS: PCP Physician Assistant; Visit Provider Obstetrics & Gynecology
DX: O32.1XX0 Maternal care for breech presentation, not applicable or unspecified (principal); O35.EXX0 Maternal care for other (suspected) fetal abnormality and damage, fetal genitourinary anomalies, not applicable or unspecified; O36.63X0 Maternal care for excessive fetal growth, third trimester, not applicable or unspecified; O99.213 Obesity complicating pregnancy, third trimester; O10.913 Unspecified pre-existing hypertension complicating pregnancy, third trimester; O09.293 Supervision of pregnancy with other poor reproductive or obstetric history, third trimester; O99.343 Other mental disorders complicating pregnancy, third trimester; F41.9 Anxiety disorder, unspecified; E66.9 Obesity, unspecified; Z3A.28 28 weeks gestation of pregnancy
CPT/HCPCS: 36415; 76816; 82947; 85025; 86592

== ENCOUNTER 2025-04-13 13:31 | Outpatient (CLI) | payer BC, SELFPAY ==
--- OUTSIDE RECORDS SUMMARY | 2025-04-13 13:33 | XMS_ITS | Clinical Summary ---
Author Organization [facility] Address [address] [phone] Care Team Providers Care Sweater Designer Name Role Phone Nicci Baker Primary Care Provider [phone] Social History Tobacco Use Types Packs/Day Years [...] patient's age to complete this topic Insurance [id number]A [id number] [facility] PPO Member Subscriber Plan / Payer (Ef fective 2023-Present) Name:Karo Colon Relation to Subscriber:Spouse Name:FAVIAN COLON Date of :1998 (Home) Address: [address] [place], [place] [address] [address] Payer ID:[id number] (NAIC) Type:Not on file Address: [address] [place] [id number] Care Teams Sweater Designer Relationship Specialty Start Date End Date Nicci Baker PA [address] [facility] [id number] PCP - General Physician Chemical Engineering Professor 12/04/23
--- NOTE | 2025-04-13 13:45 | US_ITS ---
PROCEDURE: US OB BIOPHYSICAL PROFILE CLINICAL INDICATION: BPP; decreased movement COMPARISON: US US OB /MATERNAL DETAIL from 01/24/2025 US US OB FOLLOW UP from 02/10/2025 US US OB FOLLOW UP from 03/23/2025 FINDINGS: Transabdominal sonographic images of the uterus were obtained. From her established due date she is 31weeks 2days. The following parameters are obtained: Viable Fetus in the breech presentation with a lateral posterior placenta grade 1. The cervix measures 3.17 cm in length. Measurements: heart Rate = 135bpm Amniotic fluid index: 14.84cm, MVP 4.86 cm Qualitative AFV:2 Breathing movements: 2 Gross Body Movements: 2 Tone: 2 Biophysical profile score: 8 No obvious anomalies evident.Kidneys, profile, stomach, bladder, four-chamber heart, three-vessel cord appear normal. There is mild unilateral renal pelvis dilation measuring 5.4 mm. This is considered within the normal range at this point in the . IMPRESSION: 1. Viable fetus in the breech presentation with a lateral posterior placenta grade 1-2. 2. The fluid is within normal limits with an amniotic fluid index 14.84 cm, MVP 4.86 cm. 3. Biophysical profile is 8/8 with good breathing movement and movement seen. 4. There continues to be mild unilateral renal pelvis dilation measuring 5.4 mm which is it is considered within the normal range at this point in the . 5. The rest of limited anatomical scan appears normal. Dictated by: Donnie Oliver MD 04/13/2025 16:31 Donnie Oliver MD in [place] 04/13/2025 16:31
== END 2025-04-13 23:59 | disposition home or self-care (01) ==
LOC: RAD 13:31
PROVIDERS: PCP Physician Assistant; Visit Provider Obstetrics & Gynecology
DX: O32.1XX0 Maternal care for breech presentation, not applicable or unspecified (principal); O10.913 Unspecified pre-existing hypertension complicating pregnancy, third trimester; O99.213 Obesity complicating pregnancy, third trimester; O35.EXX0 Maternal care for other (suspected) fetal abnormality and damage, fetal genitourinary anomalies, not applicable or unspecified; O36.8130 Decreased fetal movements, third trimester, not applicable or unspecified; E66.9 Obesity, unspecified; Z3A.31 31 weeks gestation of pregnancy
CPT/HCPCS: 76819

== ENCOUNTER 2025-04-18 09:58 | Outpatient (CLI) | payer BC, SELFPAY ==
--- OUTSIDE RECORDS SUMMARY | 2024-07-01 09:20 | XMS_ITS ---
Author Organization [facility] [address] [place] [phone] Care Team Providers Care Visual Basic .Net Developer Name Role Phone Nicci Baker Primary Care Provider Allergies No Known Allergies Results Component Value Reference Range Notes Rapid Strep- Inhouse Reviewed date:07/01/2024 05:06:36 PM Interpretation:neg Performing Lab: Notes/Report: neg strep test neg CBC Fingerstick (in house) Reviewed date:07/01/2024 05:06:45 PM Interpretation: Performing Lab: Notes/Report: wbc 6.9 3.5 - 10 lym 16.2 15 - 50 mid 4.9 2 - 15 gran 78.9 35 - 80 rbc 5.20 3.5 - 5.5 hgb 12.6 11.5 - 16.5 hct 37.4 35 - 55 mcv 71.8 75 - 100 mch 24.2 25 - 35 mchc 33.7 31 - 38 plat 276 100 - 400 REASON FOR VISIT sore throat Medications Medication SIG (Take, Route, Frequency, Duration) Notes Start Date End Date Status hydroCHLOROthiazide 12.5 MG 1 capsule in the morning Orally Once a day; Duration: 90 days 06/02/2023 Active Desvenlafaxine ER 100 MG 1 tablet Orally Once a day Active Vitamin B12 1000 MCG 1 tablet Orally Onc e a day 09/26/2023 Active Cefdinir 300 MG 1 cap(s) Orally Two times a day; Duration: 10 day(s) 07/01/2024 Active Vitamin D3 125 MCG (5000 UT) 1 capsule O rally Once a day; Duration: 30 day(s) 09/26/2023 Active Fluconazole 150 MG 1 tablet Orally 06/02/2024 Active Vraylar 1.5 MG 1 capsule Orally Onc e a day; Duration: 30 day(s) 01/07/2024 Active Zepbound 12.5 MG/0.5ML 0.5 mL Subcutaneo us; Duration: 28 days Active Vital Signs Weight 328.2 lbs 07/01/2024 Blood pressure systolic 124 mm Hg 07/01/19 25 Blood pressure diastolic 80 mm Hg 025 Heart Rate 110 /min 07/01/2024 Height 69.75 in 07/01/2024 BMI 47.42 kg/m2 07/01/2024 Encounters Encounter Location Date Provider Diagnosis [facility] [address] [place] [phone] 07/01/2024 Nicci Baker Acute URI J06.9 Assessments Encounter Date Diagnosis (ICD Code) Assessment Notes Treatment Notes Treatment Clinical Notes Section Notes 07/01/2024 Acute URI (ICD-10 - J06.9) Plan Of Treatment Medication Medication Name Sig Start Date Stop Date Notes Cefdinir 300 MG 1 cap(s) Orally Two times a day; Duration: 10 day(s) 07/01/2024 Next Appt Details Follow Up: prn, Reason: Progress Notes * DUNIA, KaroDOB:2000 (24 yo F)Acc No.[id number]:07/01/2024 Progress Notes Patient: Karo BARRON Provider: MONA He :2000 A ge:23 Y S ex:Female Date:07/01/2024 Phone: Address:[address] [place], [place] [address], [id number] Subjective: * Chief Complaints: * 1 . Sore throat. * HPI: E NT/respiratory: 23 year old female presents with c/o sore throat P t sts she has no voice. c/o cough P t sts she does have a small cough but it is only in the mornings when she wakes up. * ROS: D ERMATOLOGY: no R regino. [...] 05/2023. * Family History: F ather: alive 49 yrs. M other: alive 48 yrs. P aternal Grand Father: , diagnosed with Diabetes. P aternal Grand Mother: 62 yrs, diagnosed with Hypertension, Heart Disease, Stroke. M aternal Grand Father: alive 72 yrs. M aternal Grand Mother: 62 yrs, [...] capsule Orally Once a day , Taking Fluconazole 150 MG Tablet 1 tablet Orally , Taking Zepbound 12.5 MG/0.5ML Solution Auto-injector 0.5 mL Subcutaneous , Medication List reviewed and reconciled with the patient * Allergies: N .K.D.A. Objective: * Vitals: W t:328.2, Temp:99.0, BP:124/80, HR:110, O2 Sat:98% on RA, Nurse:gunjan, Ht: 69.75, BMI:47.42. * Examination: E NT/Respiratory: General Appearance: N AD, hoarse. E ars: a uditory canals normal bilaterally, TM's WNL. N ose : no edema, good color. S inuses : non tender bilaterally. O ral cavity : erythema without exudate on pharynx. N ramón : n o cervical lymphadenopathy. H eart : R RR, normal S1 S2, no murmurs. L ungs: c lear to auscultation bilaterally. Assessment: * Assessment: 1. A jinny URI - J06.9 (Primary) Plan: * Treatment: Value Reference Range s trep test neg * Shital Robertson 07/01/2024 2:29: 41 PM > Provider reviewed results while patient in office.Nicci Baker 07/01/2024 5:06:34 PM > ?LAB: CBC Fingerstick (in house) (Collection Date & Time - 07/01/2024)* Value Reference Range w bc 6.9 3.5 - 10 * l ym 16.2 15 - 50 * m id 4.9 2 - 15 * g ran 78.9 35 - 80 * r bc 5.20 3.5 - 5.5 * h gb 12.6 11.5 - 16.5 * h ct 37.4 35 - 55 * m cv 71.8 75 - 100 * m ch 24.2 25 - 35 * m chc 33.7 31 - 38 * p lat 276 100 - 400 * Shital Robertson 07/01/2024 2:30: 28 PM > Provider reviewed results while patient in office.Nicci Baker 07/01/2024 5:06:42 PM > * Procedure Codes: 9 4760 [place], [address] STREP A ASSAY W/OPTIC, Modifiers: QW , 45191 CAPILLARY BLOOD DRAW, 65690 CBC WITH AUTO DIFF, 3074F SYST BP LT 130 MM HG, 3079F DIAST BP 80-89 MM HG * Follow Up: p rn * Images: Billing Information: * Visit Code: 55533 Office Visit, Est Pt., Level 3. * Procedure Codes: [address] [place]. [address] STREP A ASSAY W/OPTIC. Modifiers: QW 07921 CAPILLARY BLOOD DRAW. 43132 CBC WITH AUTO DIFF. 3074F SYST BP LT 130 MM HG. 3079F DIAST BP 80-89 MM HG. * Electronic signature of MONA Jolley on 04/18/2025 at 10:08 AM EST Sign off status: Pending * Provider: MONA He Date: 0 07/01/2024 Generated for Shantanu wong/Alondra/Donnie on: 1 06/19/2024 10:08 AM EST History and Physical Notes * HPI (History of Present Illness) Category Sub-Category Detail Notes Category Not es ENT/respiratory sore throat Pt sts she has no voice cough Pt sts she does have a small cough but it is only in the mornings when she wakes up Examination Category Sub-Category Detail Notes Category Not es ENT/Respiratory Oral cavity : erythema without exudate on pharynx Sinuses : non tender bilateral ly Ears: auditory canals norm al bilaterally, TM's WNL Neck : no cervical lymphade nopathy Heart : RRR, normal S1 S2, n o murmurs Lungs: clear to auscultatio n bilaterally General Appearance: NAD, hoarse Nose : no edema, good color
--- OUTSIDE RECORDS SUMMARY | 2024-08-24 03:55 | XMS_ITS ---
Author Organization [facility] Address [address] [facility] [address] [place] [phone] Care Team Providers Care Innovation Analyst Name Role Phone Nicci Baker Primary Care Provider REASON FOR VISIT Lab Draw Encounters Encounter Location Date Provider Diagnosis [facility] [address] [place] [id number] 08/24/2024 Nicci Baker Plan Of Treatment No Information Progress Notes * Karo COLONDOB:2000 (24 yo F)Acc No.[id number]:08/24/2024 Patient: Shoaib BARRONssica Provider: MONA He :2000 A ge:23 Y S ex:Female Date:08/24/2024 Phone: Address:[place] Subjective: * Chief Complaints: * 1 . Lab Draw. * Medical History: Objective: * Vitals: Assessment: Plan: * Treatment: * Images: Billing Information: * Visit Code: * Procedure Codes: * Electronic signature of MONA Jolley on 04/18/2025 at 10:08 AM EST Sign off status: Pending * Provider: MONA He Date: 0 08/24/2024 Generated for Shantanu wong/Alondra/eTsandysmitting on: 1 06/19/2024 10:08 AM EST
--- OUTSIDE RECORDS SUMMARY | 2025-03-25 05:15 | XMS_ITS ---
Author Organization [facility] Address [address] [facility] [address] [place] [phone] Care Team Providers Care Screener And Blender Name Role Phone Nicci Baker Primary Care [...] Encounter Location Date Provider Diagnosis [facility] [address] [facility] [address] [place] [phone] 03/25/2025 Nicci Baker Acute URI J06.9 Assessments [...] Notes * Karo COLONDOB:2000 (24 yo F)Acc No.[id number]:03/25/2025 Progress Notes Patient: Karo BARRON Provider: MONA He :2000 A ge:24 Y S ex:Female Date:03/25/2025 Phone: Address:[address] [id number] Subjective: * Chief Complaints: * 1 . Sore throat. * HPI: E NT/respiratory: 24 year old female presents with c/o sore throat P t presents today with c/o sore throat and dry cough for almost 2 weeks. Pt sts that she had a CBC done at [facility] on Friday that only showed anemia. [...] * Images: Billing Information: * Visit Code: 03728 Office Visit, Est Pt., Level 3. * Procedure Codes: 81641 STREP A ASSAY W/OPTIC. Modifiers: QW * Electronic signature of MONA Jolley on 04/18/2025 at 10:07 AM EST Sign off status: Pending * Provider: MONA He Date: 05/25/2024 Generated for Shantanu wong/Alondra/Donnie on: 06/19/2024 10:07 AM EST History and Physical Notes * HPI (History of Present Illness) Category Sub-Category Detail Notes Category Not es ENT/respiratory sore throat Pt presents toda y with c/o sore throat and dry cough for almost 2 weeks. Pt sts that she had a CBC done at [facility] on Friday that only showed anemia [...]
[2025-04-18 10:04] VITALS: BMI 48.6
--- OUTSIDE RECORDS SUMMARY | 2025-04-18 10:07 | XMS_ITS | Clinical Summary ---
Author Organization [facility] Address [address] [place] [address] Phone Care Team Providers Care Field Service Specialist Name Role Phone Jasmeet SANTIAGO, Bhavana Maynard Unavailable Conditions or Problems Problem Name Problem Code Onset Date Status Entry Date Provider Comment Standard Description Annotate Ear pain, left 5394655853 (SNOMED CT) 06/01 Active 06/01 Cesar Argueta MD Otalgia of left ear Acute mastoiditis, left 777354728 (SNOMED CT) 06/01 Active 06/01 Cesar Argueta MD Acute mastoiditis Screening for HIV 315396022 (SNOMED CT) 12/17 Active 12/17 Gorge Handy Procedure carried out on subject Acute recurrent suppurative otitis media, left 211826853 (SNOMED CT) 12/04 Active 12/04 Sasha Malik Recurrent acute suppurative otitis media Acute recurrent serous otitis media, left 303561649 (SNOMED CT) 12/03 Active 12/03 Sasha Malik Acute non-suppurat gokul serous otitis media Serratia marcescens infection B96.89 (ICD-10-CM) 12/03 Active 12/03 Cesar Argueta MD Other specified bacterial agents as the cause of diseases classified elsewhere Facial swelling 848589145 (SNOMED CT) 12/03 Active 12/03 Aida Argueta Facial swelling Recurrent otitis media (ROM) 9369631732079 104 (SNOMED CT) 12/03 Inactive 12/03 Aida Argueta Otitis media of right ear Chronic mastoiditis, left 44150583 (SNOMED CT) 12/03 Active 12/03 Lydia Medrano Chronic mastoiditis Medications Medication Instructions Start Date Stop Date Generic Name NDC Provider ceftriaxone recon kikanoemi Rocephin 2gm IV Q 24hrs/ OPAT 06/01 ceftriaxone recon katy espana recon solnoemi Rocephin 2gm IV Q 24hrs INPAT 06/01 ceftriaxone recon katy Gonzales METRONIDAZOLE 500 MG TABS Take 1 tablet by mouth three times a day 06/01 metronidazole 33343504895 Cesar Argueta MD WEGOVY 0.5 MG/0.5ML SOAJ 06/01 semaglutide (weight loss) 57727192393 Lynn Jarvis HYDROCHLOROTHIAZIDE 12.5 MG TABS 06/01 [facility]othiazide 05193421959 [facility] VENLAFAXINE HCL 37.5 MG TABS 06/01 venlafaxine 57033389823 [facility] PRISTIQ 100 MG [id number] once a day desvenlafaxine succinate [id number] [facility] ZOSYN 4-0.5 GM/100ML SOLN Q 8 hrs/OPAT 01/26 piperacillin-tazoba ctam-dextrs 28704359412 Bhavana Alamo RN WEGOVY 0.5 MG/0.5ML SOAJ 06/01 semaglutide (weight loss) 39208031663 Farrah Gunjan VENLAFAXINE HCL 37.5 MG TABS 06/01 venlafaxine 59327992390 Farrah Gunjan HYDROCHLOROTHIAZIDE 12.5 MG TABS 02/17 hydrochlorothiazide 86181965502 Farrah Gunjan Medications Administered No information available. [...] Procedures Code Procedure Name Date Entry Date CPT-89215 CMP [id number] CBC with Differential 2024 CPT-19403 C- reactive protein CPT-79741 Sedimentation Rate (ESR) 202 09/17/27 CPT-36826 CMP [id number] CBC with Differential 2024 CPT-74946 C- reactive protein CPT-04346 Sedimentation Rate (ESR) 09/16/20 CPT-sl STAT Labs [id number] CBC with Differential 2024 CPT-23861 CMP CPT-81651 C- reactive protein CPT-05358 Sedimentation Rate (ESR) 09/17/15 CPT- stat weekly Stat Weekly Labs CPT-95124 X-Ray, Chest (PICC Placement only) 06/02 CPT-00557 CMP [id number] CBC with Differential 2024 CPT-70551 C- reactive protein CPT-14188 Sedimentation Rate (ESR) 09/16/13 CPT-sl STAT Labs CPT-sl STAT Labs CPT-sl STAT Labs CPT-93371 CMP [id number] CBC with Differential 2023 CPT-54653 C- reactive protein CPT-25090 Sedimentation Rate (ESR) 08/24/14 CPT-sl STAT Labs CPT-sl STAT Labs CPT-80837 CMP [id number] CBC with Differential 2023 CPT-86875 C- reactive protein CPT-63935 Sedimentation Rate (ESR) 202 08/23/24 CPT- stat weekly Stat Weekly Labs CPT-sl STAT Labs CPT-sl STAT Labs CPT-15852 CMP [id number] CBC with Differential 2023 CPT-03015 C- reactive protein CPT-61416 Sedimentation Rate (ESR) 202 08/23/17 Vital Signs [...]
--- OUTSIDE RECORDS SUMMARY | 2025-04-18 10:08 | XMS_ITS | Clinical Summary ---
Author Organization [facility] Address [address] [phone] Care Team Providers Care Director Outcomes Name Role Phone Nicci Baker Primary Care Provider [phone] Social History Tobacco Use Types Packs/Day Years [...] patient's age to complete this topic Insurance [id number] BEDOYA [id number] [facility] PPO Member Subscriber Plan / Payer (Ef fective 2023-Present) Name:Karo Colon Relation to Subscriber:Spouse Name:FAVIAN COLON Date of :1998 (Home) Address: [address] [place] [address] [address] Payer ID:[id number] (NAIC) Type:Not on file Address: [address] [place] [phone] Care Teams Director Outcomes Relationship Specialty Start Date End Date Nicci Baker PA [address] [facility] [id number] PCP - General Physician Benefits Administrator 12/04/23
--- OUTSIDE RECORDS SUMMARY | 2025-04-18 10:08 | XMS_ITS | Data Portability ---
Author Organization PAIGE EVERETT [facility] [place] [facility] Address [address] [facility] [address] [place] [address] Care Team Providers Care Marine Cargo Inspector Name Role Phone TRINITY IVORY Primary Care Provider [phone] CAILIN PINEDA Referring Provider Assessment No assessment recorded. Plan of Treatment Reminders Order Date Submit Date Provider Last Modified By Organization Details Last Modified Time Details Appointments None recorded. Lab None recorded. Referral None recorded. Procedures None recorded. Surgeries None recorded. Imaging None recorded. Medication Orders Ciprodex 0.3 %-0.1 % ear drops,susp ension 2023 024 [facility], [address] [place] [address] [place], [phone], 4 17:20:00 Patient TargetsNo targets recorded. Patient Instructions Encounter Date Encounter Id Patient Instructions Last Modified By Organization Details Last Modified Time 12/04/[id number] of tempora l bone reviewed [...] mastoidectomy [email or web address] Not available 12/04/2023 12:48:07 01/01/2024 [id number] 1. [place] Photos obtained in office today 2. Ordered CT scan of the Temporal Bone 3. F/u with CT results in 1 month [email or web address] Not available 01/01/2024 13:44:11 09/02/2024 [id number] 1. Most recent C T of temporal [...] the office visit. 4. Follow up prn. [email or web address] Not available 09/02/2024 14:21:04 This patient has [...] we may get an opinion from the [facility] regarding mastoid exploration. She might have none otogenic otalgia [email or web address] Not available 09/02/2024 17:27:50 Reason for Referral None Reported. Results Created Date Observation Date Name Description Value Unit Range Abnormal Flag Note LastModifiedBy Organization Detail LastModifiedTime 01/09/20 24 01/09/2024 CT, tempo ral bone, w/o contr ast Brianna loja [facility] [address] [place] [address] Stephenie palomino Name: BELEM palomino : [birth year] Pat[place] palomino 45 Orderi ng Provid er: JAMIL NAVARRETE EXAM DATE: 2023 EXAM: CT TEMPOR AL [...] were also obtain ed. FINDIN GS: The sap basis al audito ry canals , tympan ic [...] Julisa andrews MD on 024 11:12 AM [facility] Radiology [address] [place], [address], 01/12/2024 09:49:28 09/07/19 25 09/02/2024 audio gram No observ ation record ed. BARCODE Not Available 2024 08:58:28 Result Notes Documentation Provider Name and Address Organization Details Recorded Time Ct, Temporal Bone, W/o Contrast : [address] [place] [address] Patient Name: JERED COLON Patient : 2000 [...] Jovany Nunes MD K PIMENTEL MD [address] [place], [address], [facility] 01/12/2024 08:37:43 Procedures Surgical History Date Name Laterality Status Provider Name and Address Organization Details Recorded Time 09/03/19 25 Tympanogram completed GINA ROMAN, CHERRY [address] [place], [address], [facility] 09/02/2024 13:45:55 09/03/19 25 Audiogram completed CHERRY HORTON [address] [place], [address], [facility] 09/02/2024 13:45:53 09/03/19 25 Binocular Microscopy completed Caleb Hagan [facility] 09/02/2024 14:15:26 12/04/19 24 Binocular Microscopy completed Caleblisa Hagan [facility] 12/04/2023 12:43:44 section completed Kaylin Cao [facility] 12/04/2023 11:01:59 cholecystectomy completed Kaylin Edmondson [facility] 12/04/2023 11:02:13 Imaging Results None recorded. [...] Updated DateTime 5 177.8 cm 47.8 kg/m2 090744. 26 g 97.4 [degF] 82 /min 139/93 mm[Hg] [facility] 5 13:13:06 Date Recorded Body height Body mass index (BMI) Body weight Heart rate Systolic And Diastolic Provider Name and Address Organization Details Last Updated DateTime 12/04/2023 10.16 cm 247.2 kg/m2 2551.46 g 83 /min 147/111 mm[Hg] Kaylin Edmondson [facility] 12/04/2023 10:59:12 Date Recorded Body height Body mass index (BMI) Body weight Body temperature Heart rate Systolic And Diastolic Provider Name and Address Organization Details Last Updated DateTime 4 177.8 cm 46.8 kg/m2 716354. 11 g 97.3 [degF] 97 /min 113/87 mm[Hg] [facility] 4 13:21:57 Social History None recorded. Functional Status Question Answer Note LastModified by Organizat ion Details LastModified Time What is your level of alcohol consumption? Occasional [email or web address] Information not available 12/04/2023 Mental Status None recorded. Family History Nothing Reported. Medical History Condition Response Kidney Stones N Hyperthyroidism N Heart Arrhythmia N Emphysema N Esophagus/swallowing troubles N Depression Y Anxiety Disorder Y Arthritis N Acid Reflux (GERD) N Cancer N Stroke N Hoarseness N Snoring problems N Headaches N Kidney Disease N Heart Problems N Mental handicap N Ear or Hearing Problems Y Gallbladder Disease N Migraines N Goiter N Ulcers N Rheumatic Fever N Bleeding Disorder N Tuberculosis N AIDS/HIV N Asthma N Sleep Disorder N Hepatitis N Hypothyroidism N Lung Disease N Glaucoma N Anesthesia Complications N Hearing Loss N Alcohol Overuse/Alcohol Abuse N High Cholesterol N Liver Disease N Allergies/Hayfever N Thyroid Problems N Anemia Y Immune System Disorder N Chest Pain N Stomach trouble N Heart Attack (ME) N Diabetes N Hyperlipidemia N Epilepsy/Seizures N Heart Disease N Hypertension Y Gynecological HistoryNo gynecological history recorded. Obstetrics History GPAL:G 0 P 0 0 0 0 Past Encounters Encounter ID Performer Location Encounter Start Date Encounter Closed Date Diagnosis/Indication Diagnosis SNOMED-CT Code Diagnosis ICD10 Code Diagnosis IMO Codes Diagnosis Note [id number] DAREK PIMENTEL MD [place] [facility] [address] [place] [address] 12/04/2023 09:29:39 12/04/2023 13:13:42 Bilateral earache 644754792 H92.03 Chronic le ft mastoiditis 5501732771 159545 H70.[address] temporal bone = opacificat ion left mastoid cavity [id number] MD PAIGE [facility]ON [facility] [address] [place] [address] 01/01/2024 13:11:08 01/08/2024 11:04:06 Chronic left mastoiditis 0445865605 607086 H70.[address] temporal bone = opacificat ion left mastoid cavity Bilateral earache 669430 003 H92.03 [id number] DAREK PIMENTEL MD [place] [facility] [address] [place] [address] 09/02/2024 13:04:52 09/02/2024 14:24:09 Chronic left mastoiditis 1960342935 253212 H70.[address] temporal bone = opacificat ion left mastoid cavity01/08 CT temporal = There is a small amount of fluid in the left mastoid air cells. Thetempora l bones are otherwise normal in appearance . [id number] CHERRY HORTON [place] [facility] [address] [place] [address] 09/02/2024 13:44:47 09/03/2024 04:39:54 Dysfunction of left eustachian tube 8406029965 360837 H69.92 66751808 Tinnitus of left ear 364 2544272 106 H93.12 3454099 Mixed cond uctive AND sensorineural hearing loss 78509513 H90.A32 15275101 Bilateral hearing loss 86515116 H90.A21 [id number] Health Concerns Section Related Observation LastModified by Organization Detai ls LastModified Time None Recorded Concern Status LastModified by Organization Details LastModified Time None Recorded Advance Directives Directive None Recorded Payers Insurance Date Sequence Insurance Name Policy Number Policy Mcmanus Covered Member ID Mcmanus Member ID Guarantor Name 04/09/2025 1 [place] ([place]) [id number] Federico Colon [id number] Jered Colon Notes Date Note Type Note Provider Name and Address Organization Details Recorded Time 12/04/2023 text/html ROS as noted in the HPI Jered Colon (23F) visits our office for a a consultation regarding her left ear. She has had recurring infections and pain for 3 months. Jered was in the [facility] ER on 12/03/23 for complaints of left [...] opacification left mastoid cavity DAREK PIMENTEL MD [address] [place] [address], [address], [facility] 12/04/2023 13:00:07 01/01/2024 text/html Jered visits us in office today to follow up on her left mastoiditis. Pt had a pic line placed in the right arm for treatement of an infection. Pain had subsided for a few weeks, but returned in the past few days. Pt had a CT scan about 4 weeks ago. DAREK PIMENTEL MD [address] [place] [address] [place], [address], [facility] 01/02/2024 15:44:38 09/02/2024 text/html ROS as [...] Rocephin for 7 weeks. DAREK PIMENTEL MD [address] [place] [address], [address], [facility] 09/02/2024 17:28:07 OBGyn Episode No OBEpisode recorded.
[2025-04-18 10:13] LABS: Microscopic, Urine URINE MICROSCOPIC (MICROSCOPIC)
[2025-04-18 10:14] VITALS: BP 126/70; PULSE 83; RESP 19; TEMP 36.8; O2SAT 98; BMI 48.6
[2025-04-18 10:31] LABS: Bilirubin,Urine Negative (Negative); Color,Urine YELLOW (Yellow); Glucose,Urine (UA) Negative (Negative); Ketones,Urine Negative (Negative); Leukocyte Esterase,Urine Negative (Negative); PH,Urine 6.5 (5.0-8.5); Protein,Urine Negative (Negative); Specific Gravity, Urine 1.025 (1.005-1.030); Urobilinogen,Urine 1.0 EU/dl (0.2)
--- NOTE | 2025-04-18 10:45 | US_ITS ---
PROCEDURE: US OB BIOPHYSICAL PROFILE CLINICAL INDICATION: Decreased movement COMPARISON: US US OB /MATERNAL DETAIL from 01/24/2025 US US OB FOLLOW UP from 02/10/2025 US US OB FOLLOW UP from 03/23/2025 US US OB BIOPHYSICAL PROFILE from 04/13/2025 FINDINGS: Transabdominal sonographic images of the uterus were obtained. From her established due date she is 32weeks 0 days. The following parameters are obtained: Viable Fetus in the cephalic presentation with a fundal placenta grade 1. The cervix measures 4.03 cm in length. Measurements: heart Rate = 136bpm Amniotic fluid index: 11.17cm, MVP 6.13 cm Qualitative AFV:2 Breathing movements: 2 Gross Body Movements: 2 Tone: 2 Biophysical profile score: 8 No obvious anomalies evident.Kidneys, profile, stomach, bladder, three-vessel cord appear normal. There is mild unilateral renal pelvis dilation measuring 6.2 mm. IMPRESSION: 1. Viable fetus in the cephalic presentation with a fundal placenta grade 1. 2. The fluid is within normal limits with amniotic fluid index 11.17 cm, MVP 6.13 cm. 3. Biophysical profile is 8/8 with good breathing movement and movement seen. 4. There is mild unilateral renal pelvis dilation measuring 6.2 mm. Considered within the normal range(less than 7 mm) for this gestational age. 5. The rest of the limited anatomical scan appears normal. Dictated by: Donnie Oliver MD 04/18/2025 11:39 oDnnie Oliver MD in [place] 04/18/2025 11:39
[2025-04-18 11:45] LABS: Bacteria,Urine Trace /lpf; WBC,Urine Occasional #/hpf (0-3)
== END 2025-04-18 12:03 | disposition home or self-care (01) ==
LOC: OBOUT 09:59 → OB 10:00
PROVIDERS: PCP Physician Assistant; Visit Provider Obstetrics & Gynecology
DX: O36.8130 Decreased fetal movements, third trimester, not applicable or unspecified (principal); Z3A.32 32 weeks gestation of pregnancy
CPT/HCPCS: 76819; 81001; 99213

== ENCOUNTER 2025-04-20 18:37 | Outpatient (CLI) | payer BC, SELFPAY ==
--- OUTSIDE RECORDS SUMMARY | 2024-03-17 08:15 | XMS_ITS ---
Author Organization [facility] Address [address] [place] [phone] Care Team Providers Care Bid Analyst Name Role Phone Nicci Baker Primary Care Provider [phone] Allergies No Known Allergies Results Component Value [...] 03/17/2024 Encounters Encounter Location Date Provider Diagnosis [facility] [address] [facility] [address] [place] [phone] 03/17/2024 Nicci Samuel Acute URI J06.9 Assessments [...] Notes * DUNIA, ShoaibabiliokizzyDOB:2000 (24 yo F)Acc No.[id number]:03/17/2024 Progress Notes Patient: Karo BARRON Provider: MONA He :2000 A ge:23 Y S ex:Female Date:03/17/2024 Phone: Address:[address] [place], [place] [address] Subjective: * Chief Complaints: * 1 . [...] Procedure Codes: 3 6416 CAPILLARY BLOOD DRAW, 99656 CBC WITH AUTO DIFF * Follow Up: p rn * Images: Billing Information: * Visit Code: 70676 Office Visit, Est Pt., Level 3. * Procedure Codes: 20007 CAPILLARY BLOOD DRAW. 32637 CBC WITH AUTO DIFF. * Electronic signature of MONA Jolley on 04/20/2025 at 06:41 PM EST Sign off status: Pending * Provider: MONA He Date: Generated for Printi ng/Faxing/eTransmitting on: 06/21/2024 06:41 PM EST History and Physical Notes * [...]
--- OUTSIDE RECORDS SUMMARY | 2024-06-23 08:00 | XMS_ITS ---
Author Organization [facility] Address [address] [facility] [address] [place] [id number] Care Team Providers Care Transitions Manager Rn Name Role Phone Nicci Baker Primary Care [...] Encounter Location Date Provider Diagnosis [facility] [address] [facility] [address] [place] [phone] 06/23/2024 Nicci Baker Vitamin B12 deficien cy E53.8 Assessments Encounter Date Diagnosis (ICD Code) Assessment Notes Treatment Notes Treatment Clinical Notes Section Notes 06/23/2024 Vitamin B12 deficiency (ICD-10 - E53.8) Plan Of Treatment No Information Medications Administered Medication Instructions Date of Administration Dosage Notes B-12 06/23/2024 1 mL Progress Notes * Robbi COLONB:2000 (24 yo F)Acc No.[id number]:06/23/2024 Patient: Karo BARRON Provider: MONA He :2000 A ge:23 Y S ex:Female Date:06/23/2024 Phone: Address:[address] [place] [address] [place], [id number] Subjective: * Chief Complaints: * 1 . [...] deficiency) * Procedure Codes: J 3420 B-12, 02002 ADMINISTRATION OF INJECTION * Images: Billing Information: * Visit Code: * Procedure Codes: J3420 B-12. 26071 ADMINISTRATION OF INJECTION. * Electronic signature of MONA Jolley on 04/20/2025 at 06:41 PM EST Sign off status: Pending * Provider: MONA He Date: 0 06/23/2024 Generated for Shantanu wong/Alondra/eTsandysmtamica on: 1 06/21/2024 06:41 PM EST
--- OUTSIDE RECORDS SUMMARY | 2024-07-01 09:20 | XMS_ITS ---
Author Organization [facility] Address [address] [place] [phone] Care Team Providers Care Art Sales Consultant Name Role Phone Nicci Baker Primary Care [...] 07/01/2024 Encounters Encounter Location Date Provider Diagnosis [facility] [address] [place] [phone] 07/01/2024 Nicci Baker Acute URI J06.9 Assessments [...] Notes * DUNIA, KaroDOB:2000 (24 yo F)Acc No.[id number]:07/01/2024 Progress Notes Patient: Karo BARRON Provider: MONA He :2000 A ge:23 Y S ex:Female Date:07/01/2024 Phone: Address:[address] [place], [place] [address], [place] Subjective: * Chief Complaints: * 1 . [...] * Procedure Codes: 9 4760 [place], [address] STREP A ASSAY W/OPTIC, Modifiers: QW , 50871 CAPILLARY BLOOD DRAW, 97754 CBC WITH AUTO DIFF, 3074F SYST BP LT 130 MM HG, 3079F DIAST BP 80-89 MM HG * Follow Up: p rn * Images: Billing Information: * Visit Code: 19110 Office Visit, Est Pt., Level 3. * Procedure Codes: [address] [place]. [address] STREP A ASSAY W/OPTIC. Modifiers: QW 56953 CAPILLARY BLOOD DRAW. 65766 CBC WITH AUTO DIFF. 3074F SYST BP LT 130 MM HG. 3079F DIAST BP 80-89 MM HG. * Electronic signature of MONA Jolley on 04/20/2025 at 06:42 PM EST Sign off status: Pending * Provider: MONA He Date: 0 07/01/2024 Generated for Shantanu wong/Alondra/Donnie on: 1 06/21/2024 06:42 PM EST History and Physical Notes * [...]
--- OUTSIDE RECORDS SUMMARY | 2024-08-19 10:15 | XMS_ITS ---
Author Organization [facility] Address [address] [facility] [address] [place] [id number] Care Team Providers Care Account General Manager Name Role Phone Iraj Bakera Primary Care Provider [phone] Allergies No Known Allergies Results Component Value Reference Range Notes Influenza Screen (in house) Reviewed date:08/19/2024 04:19:52 PM Interpretation: Performing Lab: Notes/Report: results Neg CBC Venipuncture (in house) Reviewed date:08/19/2024 04:19:32 PM Interpretation: Performing Lab: Notes/Report: wbc 7.0 3.5 - 10 lymph 21.4% 15 - 50 mid 7.1% 2 - 15 gran 71.5% 35 - 80 rbc 4.68 3.5 - 5.5 hgb 11.3 11.5 - 16.5 hct 34.0 35 - 55 mcv 72.6 75 - 100 mch 24.1 25 - 35 mchc 33.1 31 - 38 platlet 274 100 - 400 P-Lyme Disease (B. burgodorf irma), IgG/IgM, NAINA, Serum Reviewed date:08/26/2024 02:10:10 PM Interpretation:Negative Performing Lab: Notes/Report: Test performed by [facility] [address], [address], [place] [address] Phoenix Schwarz MD, Rn Dermatology CLIA: [id number] B burgdorferi (Lyme Disease) IgG Negative Negative B burgdorferi (Lyme Disease) IgM Negative Negative P-Comprehensive Metabolic Pa gene (CMP) Reviewed date:08/26/2024 02:10:10 PM Interpretation:Glu 101 Performing Lab: Notes/Report: Test performed by [facility] , [address], [place] [address] Phoenix Schwarz MD, Rn Dermatology CLIA: [id number] Sodium 141 135-145 mmol/L Potassium 4.1 3.5-5.3 mmol/L Chloride 106 97-108 mmol/L CO2 22 22-32 mmol/L Glucose 101 65-99 mg/dL BUN 11 6-20 mg/dL Creatinine 0.93 0.50-1.00 mg/dL Calcium 8.9 8.6-10.4 mg/dL eGFR by Creatinine 88 >59 mL/min/1.73m2 Protein 6.9 6.0-8.3 g/dL Albumin 4.1 3.5-5.3 g/dL Alkaline Phosphatase 76 35-121 IU/L ALT (SGPT) 8 <5-47 IU/L AST (SGOT) 10 <5-40 IU/L Bilirubin, Total 0.3 <0.2-1.2 mg/dL A/G Ratio 1.5 1.1-2.5 P-Arthritis Panel, [facility] Reviewed date:08/26/2024 02:10:10 PM Interpretation:CRP 0.81 Performing Lab: Notes/Report: Test performed by [facility] [address] [facility] , [address], [place] [address] Phoenix Schwarz MD, Rn Dermatology CLIA: [id number] Rheumatoid Factor <10 <14.1 IU/mL C-Reactive Protein (CRP) 0.81 <0.50 mg/dL Antinuclear Antibodies (EVER) Screen, Reflex EVER 9 Panel Negative Negative This test is performed by Multiplex Bead Immunoassay methodology. Antinuclear Antibodies (EVER) Result Note SEE COMMENT For positive Autoantibodies, please refer to the interpretive chart here: [email or web address]/[email or web address] pretive-Chart.pdf CCP Antibodies <0.5 <0.5-3.0 U/mL Erythrocyte Sedimentation Rate (ESR), Automated Specimen received beyond stability.. Test cannot be performed. Acceptable stability from collection is [24 hours]. REASON FOR VISIT joint pain and swelling Medications Medication SIG (Take, Route, Fr equency, Duration) Notes Start Date End Date Status Zepbound 2.5 MG/0.5ML 2.5 mg Subcutaneou s once a week 08/19/2024 Active Meloxicam 15 MG 1 tablet Orally Once a day; Duration: 30 day(s) 08/19/2024 Active Vraylar 1.5 MG 1 capsule Orally Onc e a day; Duration: 30 day(s) 01/07/2024 Active Problems Problem Type SNOMED Code ICD Code Onset Dates Problem Status W/U Status Risk Notes Problem Morbid obesity (165193704) Obesity, morbid, BMI 40.0-49.9 (E66.01) Active confirmed Vital Signs Weight 335 lbs 08/19/2024 Blood pressure systolic 130 mm Hg 08/20/19 25 Blood pressure diastolic 80 mm Hg 025 Heart Rate 100 /min 08/19/2024 Height 69.75 in 08/19/2024 BMI 48.41 kg/m2 08/19/2024 Encounters Encounter Location Date Provider Diagnosis [facility] [address] [facility] [address] [place] [address], [place] [id number] 08/19/2024 Nicci Baker Polyarthralgia M25.5 0 and Obesity, morbid, BMI 40.0-49.9 E66.01 Assessments Encounter Date Diagnosis (ICD Code) Assessment Notes Treatment Notes Treatment Clinical Notes Section Notes 08/19/2024 Polyarthralgia (ICD-10 - M25.50) 08/19/2024 Obesity, morbid, BMI 40.0-49.9 (ICD-10 - E66.01) Plan Of Treatment Medication Medication Name Sig Start Date Stop Date Notes Zepbound 2.5 MG/0.5ML 2.5 mg Subcutaneous once a week 07/2024 Meloxicam 15 MG 1 tablet Orally Once a day; Duration: 30 day(s) 08/19/2024 Next Appt Details Follow Up: via phone to repo rt test results, Reason: Progress Notes * Karo COLONDOB:2000 (24 yo F)Acc No.[id number]:08/19/2024 Progress Notes Patient: Karo BARRON Provider: MONA He :2000 A ge:23 Y S ex:Female Date:08/19/2024 Phone: Address:[address] [place], [place] [address]Adolfo [facility] Subjective: * Chief Complaints: * 1 . Joint pain and swelling. * HPI: R heumatology: 23 year old female presents with c/o joint pain P t complains of multiple joint pain since Friday. Pt states she feels like her joints are swollen and stiff. Pt states when she walks her knees hurt . * ROS: C ARDIOLOGY: no D izziness. n o C hest pain. G ASTROENTEROLOGY: no N ausea. n o V omiting. U ROLOGY: no D ifficulty urinating. n [...] drinks a month. * Medications: T aking Vraylar 1.5 MG Capsule 1 capsule Orally Once a day , Discontinued Desvenlafaxine ER 100 MG Tablet Extended Release 24 Hour 1 tablet Orally Once a day , Discontinued hydroCHLOROthiazide 12.5 MG Capsule 1 capsule in the morning Orally Once a day , Discontinued Vitamin D3 125 MCG (5000 UT) Capsule 1 capsule Orally Once a day , Discontinued Vitamin B12 1000 MCG Tablet Extended Release 1 tablet Orally Once a day , Discontinued Fluconazole 150 MG Tablet 1 tablet Orally , Discontinued Zepbound 12.5 MG/0.5ML Solution Auto-injector 0.5 mL Subcutaneous , Discontinued Cefdinir 300 MG Capsule 1 cap(s) Orally Two times a day , Discontinued Zithromax Z-Jacob 250 MG Tablet as directed Orally once daily , Medication List reviewed and reconciled with the patient * Allergies: N .K.D.A. Objective: * Vitals: W t:335, Temp:97.8, BP:130/80, HR:100, Nurse:saira, Ht: 69.75, BMI:48.41. * Examination: G eneral Examination: General Appearance: N AD. H EENT: u nremarkable.?Oral cavity: n o lesions, mucosa moist and WNL, no erythema. N ramón: s upple, no lymphadenopathy. C hest: n ormal shape and expansion. H eart: R SR. L ungs: c lear to auscultation. A bdomen: bowel sounds present, soft and nontender. E xtremities:? bilateral shoulder joints ttp, bilateral elbows ttp, bilateral knees ttp, no edema or erythema. Assessment: * Assessment: 1. P olyarthralgia - M25.50 (Primary) 2 . O besity, morbid, BMI 40.0-49.9 - E66.01 Plan: * Treatment: Value Reference Range B burgdorferi (Lyme Disease) IgG Negative Negative - * B burgdorferi (Lyme Disease) IgM Negative Negative - * Marcia Nash 08/26/2024 02: 10:02 PM > See phone encounter ?LAB: P-Comprehensive Metabolic Panel (CMP) (Collection Date & Time - 08/19/2024 03:45 PM)?Glu 101* Value Reference Range A /G Ratio 1.5 1.1-2.5 - * A lbumin 4.1 3.5-5.3 - g/dL * A lkaline Phosphatase 76 35-121 - IU/L * A LT (SGPT) 8 <5-47 - IU/L * A ST (SGOT) 10 <5-40 - IU/L * B ilirubin, Total 0.3 <0.2-1.2 - mg/dL * B UN 11 6-20 - mg/dL * C alcium 8.9 8.6-10.4 - mg/dL * C hloride 106 97-108 - mmol/L * C O2 22 22-32 - mmol/L * C reatinine 0.93 0.50-1.00 - mg/dL * G lucose 101 H 65-99 - mg/dL * P otassium 4.1 3.5-5.3 - mmol/L * S odium 141 135-145 - mmol/L * P rotein 6.9 6.0-8.3 - g/dL * e GFR by Creatinine 88 >59 - mL/min/1.73m2 * Marcia Nash 08/26/2024 02: 10:02 PM > See phone encounter ?LAB: P-Arthritis Panel, [facility] (Collection Date & Time - 08/19/2024 03:45 PM)?CRP 0.81* Value Reference Range A ntinuclear Antibodies (EVER) Result Note SEE COMMENT - * A ntinuclear Antibodies (EVER) Screen, Reflex EVER 9 Panel Negative Negative - * C CP Antibodies <0.5 <0.5-3.0 - U/mL * C -Reactive Protein (CRP) 0.81 H <0.50 - mg/dL * R heumatoid Factor <10 <14.1 - IU/mL * Marcia Nash 08/26/2024 02: 10:02 PM > See phone encounter ?LAB: Influenza Screen (in house) (Collection Date & Time - 08/19/2024)* Value Reference Range r esults Neg * Melia Lopez 08/19/2024 4:17:59 PM > , Provider reviewed results while patient in office. ?LAB: CBC Venipuncture (in house) (Collection Date & Time - 08/19/2024)* Value Reference Range w bc 7.0 3.5 - 10 * l ymph 21.4% 15 - 50 * m id 7.1% 2 - 15 * g ran 71.5% 35 - 80 * r bc 4.68 3.5 - 5.5 * h gb 11.3 11.5 - 16.5 * h ct 34.0 35 - 55 * m cv 72.6 75 - 100 * m ch 24.1 25 - 35 * m chc 33.1 31 - 38 * p latlet 274 100 - 400 * Melia Lopez 08/19/2024 4:19:29 PM > , Provider reviewed results while patient in office. 2.?Obesity, morbid, BMI 40.0-49.9? Start Zepbound Solution Auto-injector, 2.5 MG/0.5ML, 2.5 mg, Subcutaneous, once a week, 4, Refills 0.?? * Procedure Codes: 8 7804 Flu Test- Nasal Swab, Modifiers: QW , 26853 CBC WITH AUTO DIFF, 69698 VENIPUNCT, ROUTINE*, 3075F SYST BP GE 130 - 139MM HG, 3079F DIAST BP 80-89 MM HG * Follow Up: v ia phone to report test results * Images: Billing Information: * Visit Code: 35805 Office Visit, Est Pt., Level 3. * Procedure Codes: 40899 Flu Test- Nasal Swab. Modifiers: QW 76709 CBC WITH AUTO DIFF. 68758 VENIPUNCT, ROUTINE*. 3075F SYST BP GE 130 - 139MM HG. 3079F DIAST BP 80-89 MM HG. * Electronic signature of MONA Jolley on 04/20/2025 at 06:41 PM EST Sign off status: Pending * Provider: MONA He Date: 0 08/19/2024 Generated for Shantanu wong/Alondra/Donnie on: 1 06/21/2024 06:41 PM EST History and Physical Notes * HPI (History of Present Illness) Category Sub-Category Detail Notes Category Not es Rheumatology joint pain Pt complains of multiple joint pain since Friday. Pt states she feels like her joints are swollen and stiff. Pt states when she walks her knees hurt Examination Category Sub-Category Detail Notes Category Not es General Examination HEENT: unremarkable Heart: RSR Lungs: clear to auscultatio n Abdomen: bowel sounds present , soft and nontender Extremities: bilateral shoulder j oints ttp, bilateral elbows ttp, bilateral knees ttp, no edema or erythema General Appearance: NAD Neck: supple, no lymphaden opathy Oral cavity: no lesions, mucosa m oist and WNL, no erythema Chest: normal shape and exp ansion
--- OUTSIDE RECORDS SUMMARY | 2024-08-24 03:55 | XMS_ITS ---
Author Organization [facility] Address [address] [facility] [address] [place] [phone] Care Team Providers Care Real Estate Teacher Name Role Phone Nicci Baker Primary Care Provider REASON FOR VISIT Lab Draw Encounters Encounter Location Date Provider Diagnosis [facility] [address] [place] [id number] 08/24/2024 Nicci Baker Plan Of Treatment No Information Progress Notes * Karo COLONDOB:2000 (24 yo F)Acc No.[id number]:08/24/2024 Patient: Shoaib BARRONssica Provider: MONA He :2000 A ge:23 Y S ex:Female Date:08/24/2024 Phone: Address:[place] Subjective: * Chief Complaints: * 1 . Lab Draw. * Medical History: Objective: * Vitals: Assessment: Plan: * Treatment: * Images: Billing Information: * Visit Code: * Procedure Codes: * Electronic signature of MONA Jolley on 04/20/2025 at 06:42 PM EST Sign off status: Pending * Provider: MONA He Date: 0 08/24/2024 Generated for Shantanu wong/Alondra/eTransmitting on: 1 06/21/2024 06:42 PM EST
--- OUTSIDE RECORDS SUMMARY | 2024-11-18 11:00 | XMS_ITS ---
Author Organization Ashley Address 1210 [facility] [address] [place] [id number] Care Team Providers Care Wood Planer Name Role Phone Nicci Baker Primary Care [...] Encounter Location Date Provider Diagnosis [facility] [address] [place] [id number] 11/18/2024 Nicci Baker History of mastoidit is Z86.69 Assessments Encounter Date Diagnosis (ICD Code) Assessment Notes Treatment Notes Treatment Clinical Notes Section Notes 11/18/2024 History of mastoiditis (ICD-10 - Z86.69) Patient is going to try to get in to see ENT next week at [facility]. She cannot see Dr. Fabian for 3 weeks. Plan Of Treatment Medication Medication Name Sig Start Date Stop Date Notes Cefdinir 300 MG 1 cap(s) Orally Two times a day; Duration: 10 days 11/18/2024 Treatment Notes Assessment Notes History of mastoiditis Patient is going to try to get in to see ENT next week at [facility]. She cannot see Dr. Fabian for 3 weeks. Next Appt Details Follow Up: with ENT, Reason: Progress Notes * Karo COLONDOB:2000 (24 yo F)Acc No.[id number]:11/18/2024 Progress Notes Patient: Karo BARRON Provider: MONA He :2000 A ge:23 Y S ex:Female Date:11/18/2024 Phone: Address:[address] [place], [place] [address], [id number] Subjective: * Chief Complaints: * 1 . [...] < 90MM HG * Follow Up: w [facility] ENT * Images: Billing Information: * Visit Code: 97156 Office Visit, Est Pt., Level 3. * [...] 0 11/18/2024 Generated for Shantanu wong/Alondra/Richarditting on: 06/21/2024 06:41 PM EST History and [...]
--- OUTSIDE RECORDS SUMMARY | 2025-03-17 08:15 | XMS_ITS ---
Author Organization [facility] Address [address] [facility] [address] [place] [id number] Care Team Providers Care Analytical Data Scientist Name Role Phone Nicci Baker Primary Care Provider Allergies No Known Allergies REASON FOR VISIT Sore Throat and Dry Cough Encounters Encounter Location Date Provider Diagnosis [place] [address] [place] [address] [place] [id number] 03/17/2025 Nicci Baker Plan Of Treatment No Information Progress Notes * ISAIAH TierakizzyDOB:2000 (24 yo F)Acc No.[id number]:03/17/2025 Progress Notes Patient: Karo BARRON Provider: MONA He :2000 A ge:24 Y S ex:Female Date:03/17/2025 Phone: Address[place] Subjective: * Chief Complaints: * 1 . Sore Throat and Dry Cough. * ROS: D ERMATOLOGY: no R regino. n o H tashi. G ASTROENTEROLOGY: no N ausea. n o V omiting. n o D iarrhea.? U ROLOGY: no B lood in urine. n o F requent urination. ? * Medical History: H ypertension, Insulin Resistance, [...] Alcohol: yes, 1-2 drinks a month. * Allergies: N .K.D.A. Objective: * Vitals: Assessment: Plan: * Treatment: * Images: Billing Information: * Visit Code: * Procedure Codes: * Electronic signature of MONA Jolley on 04/20/2025 at 06:41 PM EST Sign off status: Pending * Provider: MONA He Date: Generated for Shantanu wong/Alondra/Donnie on: 06/21/2024 06:41 PM EST
--- OUTSIDE RECORDS SUMMARY | 2025-03-25 05:15 | XMS_ITS ---
Author Organization [facility] Address [address]10 [facility] [address] [place] [phone] Care Team Providers Care Roller Maker Name Role Phone Nicci Baker Primary Care Provider [phone] Allergies No Known Allergies Results Component Value [...] Encounter Location Date Provider Diagnosis [facility] [address] [facility] [address] [place] [id number] 03/25/2025 Nicci Baker Acute URI J06.9 Assessments [...] Notes * Karo COLONDOB:2000 (24 yo F)Acc No.[id number]:03/25/2025 Progress Notes Patient: Karo BARRON Provider: MONA He :2000 A ge:24 Y S ex:Female Date:03/25/2025 Phone: Address:[address] [id number] Subjective: * Chief Complaints: * 1 . Sore throat. * HPI: E NT/respiratory: 24 year old female presents with c/o sore throat P t presents today with c/o sore throat and dry cough for almost 2 weeks. Pt sts that she had a CBC done at [facility] on Friday that only showed anemia. c/o [...] * Images: Billing Information: * Visit Code: 50724 Office Visit, Est Pt., Level 3. * Procedure Codes: 50067 STREP A ASSAY W/OPTIC. Modifiers: QW * Electronic signature of MONA Jolley on 04/20/2025 at 06:41 PM EST Sign off status: Pending * Provider: MONA He Date: 05/25/2024 Generated for Shantanu wong/Alondra/Donnie on: 06/21/2024 06:41 PM EST History and Physical Notes * HPI (History of Present Illness) Category Sub-Category Detail Notes Category Not es ENT/respiratory sore throat Pt presents toda y with c/o sore throat and dry cough for almost 2 weeks. Pt sts that she had a CBC done at [facility] on Friday that only showed anemia cough [...]
--- OUTSIDE RECORDS SUMMARY | 2025-04-20 18:41 | XMS_ITS | Clinical Summary ---
Author Organization [facility] Address [address] [id number] Care Team Providers Care Coal Getter Name Role Phone Nicci Baker Primary Care Provider [phone] Social History Tobacco Use Types Packs/Day Years [...] patient's age to complete this topic Insurance 180PAIGE BEDOYA [id number] [facility] PPO Member Subscriber Plan / Payer (Ef fective 2023-Present) Name:Karo Colon Relation to Subscriber:Spouse Name:FAVIAN COLON Date of :1998 (Home) Address: [address] [place], [place] [address]PA[place] [address] Payer ID:[id number] (NAIC) Type:Not on file Address: [address] [place] [phone] Care Teams Coal Getter Relationship Specialty Start Date End Date Nicci Baker PA [address] [place] [address] [facility] [id number] PCP - General Physician Pulp Grinder 12/04/23
--- OUTSIDE RECORDS SUMMARY | 2025-04-20 18:41 | XMS_ITS | Clinical Summary ---
Author Organization [facility] Address [address] [place] [address] Phone Care Team Providers Care Grounds Manager Name Role Phone Jasmeet SANTIAGO, Bhavana Maynard Unavailable Conditions or Problems Problem Name Problem Code Onset Date Status Entry Date Provider Comment Standard Description Annotate Ear pain, left 8484178051 (SNOMED CT) 06/01 Active 06/01 Cesar Argueta MD Otalgia of left ear Acute mastoiditis, left 330829200 (SNOMED CT) 06/01 Active 06/01 Cesar Argueta MD Acute mastoiditis Screening for HIV 011667276 (SNOMED CT) 12/17 Active 12/17 Gorge Handy Procedure carried out on subject Acute recurrent suppurative otitis media, left 348017841 (SNOMED CT) 12/04 Active 12/04 Sasha Malik Recurrent acute suppurative otitis media Acute recurrent serous otitis media, left 288513360 (SNOMED CT) 12/03 Active 12/03 Sasha Malik Acute non-suppurat gokul serous otitis media Serratia marcescens infection B96.89 (ICD-10-CM) 12/03 Active 12/03 Cesar Argueta MD Other specified bacterial agents as the cause of diseases classified elsewhere Facial swelling 308042694 (SNOMED CT) 12/03 Active 12/03 Aida Argueta Facial swelling Recurrent otitis media (ROM) 4331425613932 104 (SNOMED CT) 12/03 Inactive 12/03 Aida Argueta Otitis media of right ear Chronic mastoiditis, left 33738244 (SNOMED CT) 12/03 Active 12/03 Lydia Medrano Chronic mastoiditis Medications Medication Instructions Start Date Stop Date Generic Name NDC Provider ceftriaxone recon kikanoemi Rocephin 2gm IV Q 24hrs/ OPAT 06/01 ceftriaxone recon katy espana recon solnoemi Rocephin 2gm IV Q 24hrs INPAT 06/01 ceftriaxone recon katy Gonzales METRONIDAZOLE 500 MG TABS Take 1 tablet by mouth three times a day 06/01 metronidazole 52925069404 Cesar Argueta MD WEGOVY 0.5 MG/0.5ML SOAJ 06/01 semaglutide (weight loss) 00636319345 Lynn Jarvis HYDROCHLOROTHIAZIDE 12.5 MG TABS 06/[address] [facility] VENLAFAXINE HCL 37.5 MG TABS 06/01 venlafaxine 47921164998 [facility] PRISTIQ 100 MG YS82M-WSL once a day desvenlafaxine succinate 48144745359 [facility] ZOSYN 4-0.5 GM/100ML SOLN Q 8 hrs/OPAT 01/26 piperacillin-tazoba ctam-dextrs 09729550137 Bhavana Alamo RN WEGOVY 0.5 MG/0.5ML SOAJ 06/01 semaglutide (weight loss) 77825607127 Farrah Gunjan VENLAFAXINE HCL 37.5 MG TABS 06/01 venlafaxine 18165888785 Farrah Gunjan HYDROCHLOROTHIAZIDE 12.5 MG TABS 02/17 hydrochlorothiazide 66755709047 Farrah Gunjan Medications Administered No information available. [...] Procedures Code Procedure Name Date Entry Date CPT-24512 CMP [id number] CBC with Differential 2024 CPT-42902 C- reactive protein CPT-29032 Sedimentation Rate (ESR) 202 09/17/27 CPT-16865 CMP [id number] CBC with Differential 2024 CPT-36671 C- reactive protein CPT-48853 Sedimentation Rate (ESR) 09/16/20 CPT-sl STAT Labs [id number] CBC with Differential 2024 CPT-50352 CMP CPT-50902 C- reactive protein CPT-98060 Sedimentation Rate (ESR) 09/17/15 CPT- stat weekly Stat Weekly Labs CPT-70565 X-Ray, Chest (PICC Placement only) 06/02 CPT-25569 CMP [id number] CBC with Differential 2024 CPT-08396 C- reactive protein CPT-05420 Sedimentation Rate (ESR) 09/16/13 CPT-sl STAT Labs CPT-sl STAT Labs CPT-sl STAT Labs CPT-48780 CMP [id number] CBC with Differential 2023 CPT-03617 C- reactive protein CPT-67165 Sedimentation Rate (ESR) 08/24/14 CPT-sl STAT Labs CPT-sl STAT Labs CPT-78027 CMP [id number] CBC with Differential 2023 CPT-45690 C- reactive protein CPT-52155 Sedimentation Rate (ESR) 202 08/23/24 CPT- stat weekly Stat Weekly Labs CPT-sl STAT Labs CPT-sl STAT Labs CPT-55531 CMP [id number] CBC with Differential 2023 CPT-24462 C- reactive protein CPT-97672 Sedimentation Rate (ESR) 202 08/23/17 Vital Signs [...]
[2025-04-20 18:42] VITALS: BMI 46.1
--- OUTSIDE RECORDS SUMMARY | 2025-04-20 18:42 | XMS_ITS | Data Portability ---
Author Organization PAIGE EVERETT [facility] [place] [facility] Address [address] [facility] [address] [place] [address] Care Team Providers Care Motor Teacher Name Role Phone TRINITY IVORY Primary Care Provider [phone] CAILIN PINEDA Referring Provider Assessment No assessment recorded. Plan of Treatment Reminders Order Date Submit Date Provider Last Modified By Organization Details Last Modified Time Details Appointments None recorded. Lab None recorded. Referral None recorded. Procedures None recorded. Surgeries None recorded. Imaging None recorded. Medication Orders Ciprodex 0.3 %-0.1 % ear drops,susp ension [address] [facility], [address] [place] [address] [place], [phone], 4 17:20:00 Patient TargetsNo targets recorded. Patient Instructions Encounter Date Encounter Id Patient Instructions Last Modified By Organization Details Last Modified Time 12/04/[id number] of tempora l bone reviewed [...] mastoidectomy [email or web address] Not available 12/04/2023 12:48:07 01/01/2024 [id number] 1. [place] Photos obtained in office today 2. Ordered CT scan of the Temporal Bone 3. F/u with CT results in 1 month [email or web address] Not available 01/01/2024 13:44:11 09/02/2024 [id number] 1. Most recent C T of temporal [...] we may get an opinion from the [facility] regarding mastoid exploration. She might have none otogenic otalgia [email or web address] Not available 09/02/2024 17:27:50 Reason for Referral None Reported. Results Created Date Observation Date Name Description Value Unit Range Abnormal Flag Note LastModifiedBy Organization Detail LastModifiedTime 01/09/20 24 01/09/2024 CT, tempo ral bone, w/o contr ast Brianna loja [facility] [address] [place] [address] Stephenie palomino Name: BELEM palomino : [birth year] [...] were also obtain ed. FINDIN GS: The director operations al audito ry canals , tympan ic [...] Julisa andrews MD on 024 11:12 AM [facility] Radiology [address] [place], [address], 01/12/2024 09:49:28 09/07/19 25 09/02/2024 audio gram No observ ation record ed. BARCODE Not Available 2024 08:58:28 Result Notes Documentation Provider Name and Address Organization Details Recorded Time Ct, Temporal Bone, W/o Contrast : [address] [place] [address] Patient Name: JERED COLON Patient : 2000 [...] Jovany Nunes MD K PIMENTEL MD [address] [place], [address], [facility] 01/12/2024 08:37:43 Procedures Surgical History Date Name Laterality Status Provider Name and Address Organization Details Recorded Time 09/03/19 25 Tympanogram completed GINA ROMAN, CHERRY [address] [place], [address], [facility] 09/02/2024 13:45:55 09/03/19 25 Audiogram completed CHERRY HORTON [address] [place], [address], [facility] 09/02/2024 13:45:53 09/03/19 25 Binocular Microscopy completed Caleb Hagan [facility] 09/02/2024 14:15:26 12/04/19 24 Binocular Microscopy completed Caleblisa Hagan [facility] 12/04/2023 12:43:44 section completed Kaylin Cao [facility] 12/04/2023 11:01:59 cholecystectomy completed Kaylin Edmondson [facility] 12/04/2023 11:02:13 Imaging Results None recorded. [...] Updated DateTime 5 177.8 cm 47.8 kg/m2 145515. 26 g 97.4 [degF] 82 /min 139/93 mm[Hg] [facility] 5 13:13:06 Date Recorded Body height Body mass index (BMI) Body weight Heart rate Systolic And Diastolic Provider Name and Address Organization Details Last Updated DateTime 12/04/2023 10.16 cm 247.2 kg/m2 2551.46 g 83 /min 147/111 mm[Hg] Kaylin Edmondson [facility] 12/04/2023 10:59:12 Date Recorded Body height Body mass index (BMI) Body weight Body temperature Heart rate Systolic And Diastolic Provider Name and Address Organization Details Last Updated DateTime 4 177.8 cm 46.8 kg/m2 732531. 11 g 97.3 [degF] 97 /min 113/87 mm[Hg] [facility] 4 13:21:57 Social History None recorded. Functional [...] Stomach trouble N Ulcers N Heart Attack (SD) N Diabetes N Rheumatic Fever N Bleeding [...] ICD10 Code Diagnosis IMO Codes Diagnosis Note [id number] DAREK PIMENTEL MD [place] [facility] [address] [place] [address] 12/04/2023 09:29:39 12/04/2023 13:13:42 Bilateral earache 615647120 H92.03 Chronic le ft mastoiditis 2272167999 098990 H70.[address] temporal bone = opacificat ion left mastoid cavity [id number] MD PAIGE KWON [facility] [address] [place] [address] 01/01/2024 13:11:08 01/08/2024 11:04:06 Chronic left mastoiditis 5881842151 636979 H70.[address] temporal bone = opacificat ion left mastoid cavity Bilateral earache 739195 003 H92.03 [id number] DAREK PIMENTEL MD [place] [facility] [address] [place] [address] 09/02/2024 13:04:52 09/02/2024 14:24:09 Chronic left mastoiditis 8943357180 322447 H70.[address] temporal bone = opacificat ion left mastoid cavity01/08 CT temporal = There is a small amount of fluid in the left mastoid air cells. Thetempora l bones are otherwise normal in appearance . [id number] CHERRY HORTON [place] [facility] [address] [place] [address] 09/02/2024 13:44:47 09/03/2024 04:39:54 Dysfunction of left eustachian tube 0173730313 147105 H69.92 65749738 Tinnitus of left ear 123 2139558 106 H93.12 1236269 Mixed cond uctive AND sensorineural hearing loss 40188154 H90.A32 73188831 Bilateral hearing loss 12155224 H90.A21 [id number] Health Concerns Section Related Observation LastModified by Organization Detai ls LastModified Time None Recorded Concern Status LastModified by Organization Details LastModified Time None Recorded Advance Directives Directive None Recorded Payers Insurance Date Sequence Insurance Name Policy Number Policy Mcmanus Covered Member ID Mcmanus Member ID Guarantor Name 04/09/2025 1 [place] [id number] Federico Colon [id number] Jered Colon Notes Date Note Type Note Provider Name and Address Organization Details Recorded Time 12/04/2023 text/html ROS as noted in the HPI Jered Colon (23F) visits our office for a a consultation regarding her left ear. She has had recurring infections and pain for 3 months. Jered was in the [facility] ER on 12/03/23 for complaints of [...] opacification left mastoid cavity DAREK PIMENTEL MD [address] [place] [address], [address], [facility] 12/04/2023 13:00:07 01/01/2024 text/html Jered visits us in office today to follow up on her left mastoiditis. Pt had a pic line placed in the right arm for treatement of an infection. Pain had subsided for a few weeks, but returned in the past few days. Pt had a CT scan about 4 weeks ago. DAREK PIMENTEL MD [address] [place] [address] [place], [address], [facility] 01/02/2024 15:44:38 09/02/2024 text/html ROS as noted [...] Rocephin for 7 weeks. DAREK PIMENTEL MD [address] [place] [address], [address], [facility] 09/02/2024 17:28:07 OBGyn Episode No OBEpisode recorded.
--- OUTSIDE RECORDS SUMMARY | 2025-04-20 18:42 | XMS_ITS | Patient Health Record ---
Author Organization [facility] Address [address] [place] [id number] Care Team Providers Care Preschool Substitute Teacher Name Role Phone Nicci Baker Primary [...] Interpretation:Negative Performing Lab: Notes/Report: Test performed by [facility] [address] [place] [address] Phoenix Schwarz MD, Occupational Health Manager CLIA: [id number] B burgdorferi (Lyme Disease) IgG Negative Negative B burgdorferi (Lyme Disease) IgM Negative Negative P-Comprehensive Metabolic Pa gene (CMP) Reviewed date:08/26/2024 02:10:10 PM Interpretation:Glu 101 Performing Lab: Notes/Report: Test performed by [facility] [address] [place] [address] [address], [place] [address] Phoenix Schwarz MD, Occupational Health Manager CLIA: [id number] Sodium 141 135-145 mmol/L Potassium 4.1 3.5-5.3 [...] 0.81 Performing Lab: Notes/Report: Test performed by [facility] [address] [place] [address] [address], [place] [address] Phoenix Schwarz MD, Occupational Health Manager CLIA: [id number] Rheumatoid Factor <10 <14.1 IU/mL C-Reactive Protein (CRP) 0.81 <0.50 mg/dL Antinuclear Antibodies (EVER) Screen, Reflex EVER 9 Panel Negative Negative This test is performed by Multiplex Bead Immunoassay methodology. Antinuclear Antibodies (EVER) Result Note SEE COMMENT For positive Autoantibodies, please refer to the interpretive chart here: [email or web address] CCP Antibodies <0.5 <0.5-3.0 U/mL Erythrocyte Sedimentation Rate (ESR), Automated Specimen received beyond stability.. Test cannot be performed. Acceptable stability from collection is [24 hours]. Rapid Strep- Inhouse Reviewed date:04/11/2025 08:03:44 AM Interpretation:Negative Performing Lab: Notes/Report: Negative strep test Negative H-Ferritin Reviewed date:06/16/2024 09:14:56 AM Interpretation:9.63 Performing Lab: Notes/Report: VALERIE 9.63 6.24-137 ng/ml H-VITAMIN B12 Reviewed date:06/16/2024 09:14:56 AM Interpretation:287 Performing Lab: Notes/Report: VITB12 287 239-931 pg/mL H-Glycohemoglobin A1C Reviewed date:06/16/2024 09:14:56 AM Interpretation:4.9 Performing Lab: Notes/Report: HGBA1C 4.9 4.0-6.0 % < 6% Non-Diabetic Level < 7% Controlled Diabetic Level > 8% Poorly Controlled Diabetic Level H-Iron Reviewed date:06/16/2024 09:14:56 AM Interpretation:44 Performing Lab: Notes/Report: FE 44 37-170 ug/dL H-CMP Reviewed date:06/16/2024 09:14:56 AM Interpretation:Normal Performing [...] Sufficient 30-100 ng/mL Potential Toxicity >100 ng/mL H-CBC Reviewed date:06/16/2024 09:14:56 AM Interpretation:hgb 11, [...] Interpretation:8 Performing Lab: Notes/Report: Test performed by [facility] [address] [place] [address] , [address], [place] [address] Phoenix Schwarz MD, Occupational Health Manager CLIA: [id number] Erythrocyte Sedimentation Rate (ESR), Automated 8 <26 [...] 1 tablet Orally Twice a day Active Immunizations Vaccine Route Administration Date Status [...] Status Risk Notes Problem Gastroesophageal reflux disease (597975476) GERD (gastroesophageal reflux disease) (K21.9) Active confirmed Problem Hypertension (05427839) HTN (hypertension) (I10) Active confirmed Problem Hyperlipidemia (78085331) Hyperlipidemia (E78.5) Active confirmed Problem Vitamin D deficiency (00815358) Vitamin D deficiency (E55.9) Active confirmed Problem Paresthesia (32069612) Paresthesia (R20.2) Active confirmed Problem Mixed anxiety and depressive disorder (178187965) Depression with anxiety (F41.8) Active confirmed Problem Hearing loss (06521960) Hearing loss (H91.90) Active confirmed Problem Amenorrhea (82068446) Amenorrhea (N91.2) Active confirmed Problem Body mass index 40+ - severely obese (389698696) BMI 45.0-49.9, adult (Z68.42) Active confirmed Problem Migraine (44022768) Migraine wit hout status migrainosus, not intractable, unspecified migraine type (G43.909) Active confirmed Problem Anemia (887881236) Anemia, unspecified type (D64.9) Active confirmed Problem Morbid obesity (486425720) Obesity, morbid, BMI 40.0-49.9 (E66.01) Active confirmed Problem Insulin resistance (119865005) Insulin resistance (E88.81) Active confirmed Problem Chronic serous otitis media (64730849) Left chronic serous otitis media (H65.22) Active confirmed Problem Refractory migraine without aura (665102958) Intractable migraine without aura and without status migrainosus (G43.019) Active confirmed Problem Anxiety depression (658178819) Anxiety with depression (F41.8) Active confirmed Problem Major depression, single episode (78301835) Major depressive disorder with current active episode, unspecified depression episode severity, unspecified whether recurrent (F32.9) Active confirmed Vital Signs Heart Rate 115 /min 03/25/2025 Blood pressure diastolic 72 mm Hg 03/25/2025 Height 69.75 in 03/25/2025 Blood pressure systolic 126 mm Hg 03/25/2025 Weight 342.6 lbs 03/25/2025 BMI 49.51 kg/m2 03/25/2025 Encounters Encounter Location Date Provider Diagnosis [facility] [facility] [address] [place] [id number] 06/23/2024 Nicci Baker Vitamin B12 deficien cy E53.8 [facility] 120[address] [facility] [address] [place] [id number] 07/01/2024 Nicci Baker Acute URI J06.9 [facility] [address] [place] [id number] 08/19/2024 Nicciconstance Baker Polyarthralgia M25.5 0 and Obesity, morbid, BMI 40.0-49.9 E66.01 [facility] [address] [place], [place] [id number] 08/24/2024 Nicci Crowdy [facility] [address] [place], [place] [id number] 11/18/2024 Nicci Crowdy History of mastoidit is Z86.69 [facility] [address] [place], [place] [id number] 03/25/2025 Nicci Crowdy Acute URI J06.9 [facility] [address] [place], [place] [id number] 05/26/2024 Nicci Crowdy History of mastoidit is Z86.69 [facility] [address] [place], [place] [id number] 06/02/2024 Nicci Crowdy [facility] [address] [place], [place] [id number] 06/11/2024 Nicci Crowdy HTN (hypertension) I 10 ; Iron deficiency E61.1 ; Vitamin D deficiency E55.9 ; Diabetes mellitus screening Z13.1 ; Anemia, unspecified type D64.9 ; Thyroid disorder screen Z13.29 ; Hyperlipidemia E78.5 and Vitamin B12 deficiency E53.8 [facility] [address] [place], [place] [id number] 06/16/2024 Nicci Crowdy [facility] [address] [place], [place] [id number] 06/16/2024 Nicci Crowdy [facility] [address] [place], [place] [id number] 07/05/2024 Nicci Crowdy [facility] [address] [place], [place] [id number] 08/26/2024 Nicci Crowdy [facility] [address] [place], [place] [id number] 10/01/2024 Nicci Crowdy [facility] [address] [place], [place] [id number] 10/06/2024 Nicci Crowdy Assessments Encounter Date Diagnosis [...] see ENT next week at [facility]. She cannot see Dr. Fabian for 3 weeks. 03/25/2025 Acute URI (ICD-10 - J06.9) CBC shows a virus. Will treat the symptoms. 06/11/2024 Iron deficiency (ICD-10 - E61.1) 06/11/2024 [...] Start Date Coverage End Date [employer] [address] [place] [address] [phone] [id number] Winter Self - patient is the insured Medications Administered Medication Instructions Date of Administration Dosage Notes B-12 06/23/2024 1 mL Medical (General) History Medical History History ICD Code Hypertension Insulin Resistance COVID 19- 03/23/2021 chronic OM left eAR left mastoiditis Surgical History Surgery Date(Month/Year) [place] Teeth Extractions 07/2019 01/15/2022 cholecystectomy 03/04/2022 C- Section 05/26/2023 left myringotomy tube placement 11/18/2023 Hospitalization History Reason Date(Month/Year) 05/2023 01/2022
[2025-04-20 19:04] VITALS: BP 110/62; PULSE 81; RESP 18; TEMP 36.8; O2SAT 97; BMI 46.1
[2025-04-20] MEDS: LACTATED RINGERS 1000ML 1,000 ML 999 ML IV (19:04)
== END 2025-04-20 20:04 | disposition home or self-care (01) ==
LOC: OBOUT 18:39 → OB 18:42
PROVIDERS: PCP Physician Assistant; Visit Provider Nurse Practitioner Obstetrics & Gynecology
DX: Z34.83 Encounter for supervision of other normal pregnancy, third trimester (principal); Z3A.32 32 weeks gestation of pregnancy
CPT/HCPCS: 99213; J7120

== ENCOUNTER 2025-04-21 14:01 | Outpatient (CLI) | payer BC, SELFPAY ==
--- NOTE | 2025-04-21 14:15 | US_ITS ---
PROCEDURE: US OB BIOPHYSICAL PROFILE CLINICAL INDICATION: Renal pelvis dialation COMPARISON: US US OB /MATERNAL DETAIL from 01/24/2025 US US OB FOLLOW UP from 02/10/2025 US US OB FOLLOW UP from 03/23/2025 US US OB BIOPHYSICAL PROFILE from 04/13/2025 US US OB BIOPHYSICAL PROFILE from 04/18/2025 FINDINGS: Transabdominal sonographic images of the uterus were obtained. From her established due date she is 32weeks 3days. The following parameters are obtained: Viable Fetus in the cephalic presentation with a posterior placenta grade 1- 2. Average ultrasound age is 33weeks 2days Estimated weight 2,081g, 4 lb 9 oz Cervix measures 3.73 cm in length Measurements: heart Rate = 133bpm BPD = 33weeks 4days, 75 percentile HC = 33weeks 4days, 41 percentile AC = 32weeks 6days, 62 percentile FL = 32weeks 5days, 45 percentile HC/AC is 1.05 FL/BPD is 0.76 FL/AC is 0.22 56 percentile Amniotic fluid index: 18.66cm, MVP 6.59 cm Qualitative AFV:2 Breathing movements: 2 Gross Body Movements: 2 Tone: 2 Biophysical profile score: 8 No obvious anomalies evident.Kidneys, stomach, bladder, three-vessel cord appear normal. The kidneys have shown improvement in the renal pelvis dilation currently measuring 5.0 mm and 2.9 mm. Considered normal at this stage in . IMPRESSION: 1. Viable fetus in the cephalic presentation with a posterior placenta grade 1-2. 2. The fluid is within normal limits with an amniotic fluid index 18.66 cm, MVP 6.59 cm. 3. Biophysical profile is 8/8 with good breathing movement and movement seen. 4. The previously described renal pelvis dilation has diminished in size and is considered within the normal range. 5. There has been good interval growth with the fetus currently 56th percentile. 6. Limited anatomical scan appears normal. Dictated by: Donnie Oliver MD 04/21/2025 15:10 Donnie Oliver MD in OV 04/21/2025 15:10
== END 2025-04-21 23:59 | disposition home or self-care (01) ==
LOC: RAD 14:02
PROVIDERS: PCP Physician Assistant; Visit Provider Obstetrics & Gynecology
DX: O10.913 Unspecified pre-existing hypertension complicating pregnancy, third trimester (principal); O99.213 Obesity complicating pregnancy, third trimester; O35.EXX0 Maternal care for other (suspected) fetal abnormality and damage, fetal genitourinary anomalies, not applicable or unspecified; E66.9 Obesity, unspecified; Z3A.32 32 weeks gestation of pregnancy
CPT/HCPCS: 76816; 76819

== ENCOUNTER 2025-04-25 14:58 | Outpatient (CLI) | payer BC, SELFPAY ==
[2025-04-25 15:13] VITALS: BP 129/74; PULSE 93; RESP 18; TEMP 36.7; O2SAT 98; BMI 46.1
== END 2025-04-25 15:48 | disposition home or self-care (01) ==
LOC: OBOUT 14:59 → OB 14:59
PROVIDERS: PCP Physician Assistant; Visit Provider Obstetrics & Gynecology
DX: Z34.83 Encounter for supervision of other normal pregnancy, third trimester (principal); Z3A.33 33 weeks gestation of pregnancy
CPT/HCPCS: 99212

== ENCOUNTER 2025-04-28 13:18 | Outpatient (CLI) | payer BC, SELFPAY ==
--- NOTE | 2025-04-28 13:30 | US_ITS ---
PROCEDURE: US OB BIOPHYSICAL PROFILE CLINICAL INDICATION: BPP COMPARISON: US US OB /MATERNAL DETAIL from 01/24/2025 US OB FOLLOW UP from 02/10/2025 US OB FOLLOW UP from 03/23/2025 US OB BIOPHYSICAL PROFILE from 04/13/2025 US OB BIOPHYSICAL PROFILE from 04/18/2025 US OB BIOPHYSICAL PROFILE from 04/21/2025 FINDINGS: Transabdominal sonographic images of the uterus were obtained. From her established due date she is 33weeks 3days. The following parameters are obtained: Viable Fetus in the BREECH presentation with a posterior placenta grade 2. The cervix measures 4.42 cm in length. Measurements: heart Rate = 167bpm Amniotic fluid index: 13.82cm, MVP 4.37 cm Qualitative AFV:2 Breathing movements: 2 Gross Body Movements: 2 Tone: 2 Biophysical profile score: 8 No obvious anomalies evident.Kidneys, stomach, bladder, four-chamber heart, three-vessel cord appear normal. IMPRESSION: 1. Viable fetus in the BREECH presentation with a posterior placenta grade 2. 2. The fluid is within normal limits with an amniotic fluid index 13.82 cm, MVP 4.37 cm. 3. Biophysical profile is 8/8 with good breathing movement and movement seen. 4. Limited anatomical scan appears normal. Dictated by: Donnie Oliver MD 04/28/2025 14:05 Donnie Oliver MD in OV 04/28/2025 14:05
== END 2025-04-28 23:59 | disposition home or self-care (01) ==
LOC: RAD 13:18
PROVIDERS: PCP Physician Assistant; Visit Provider Obstetrics & Gynecology
DX: O32.1XX0 Maternal care for breech presentation, not applicable or unspecified (principal); O10.913 Unspecified pre-existing hypertension complicating pregnancy, third trimester; O99.213 Obesity complicating pregnancy, third trimester; E66.9 Obesity, unspecified; Z3A.33 33 weeks gestation of pregnancy
CPT/HCPCS: 76819

== ENCOUNTER 2025-04-30 11:04 | Outpatient (CLI) | payer BC, SELFPAY ==
--- OUTSIDE RECORDS SUMMARY | 2024-03-17 08:15 | XMS_ITS ---
Author Organization [facility] Address [address] [facility] [address] [place] [id number] Care Team Providers Care Asphalt Heater Tender Name Role Phone Nicci Baker Primary Care Provider [phone] Allergies No Known Allergies Results Component Value Reference Range Notes CBC Fingerstick (in house) Reviewed date:03/17/2024 02:55:29 PM Interpretation: Performing Lab: Notes/Report: wbc 9.9 3.5 - 10 lym 20.2 15 - 50 mid 5.2 2 - 15 gran 74.6 35 - 80 rbc 5.34 3.5 - 5.5 hgb 12.6 11.5 - 16.5 hct 39.5 35 - 55 mcv 73.9 75 - 100 mch 23.6 25 - 35 mchc 31.9 31 - 38 plat 149 100 - 400 REASON FOR VISIT nasal congestion, sore throat Medications Medication SIG (Take, Route, Frequency, Duration) Notes Start Date End Date Status Zepbound 2.5 MG/0.5ML 2.5 mg Subcutaneou s once a week 03/03/2024 Active Ondansetron HCl 8 MG 1 tab(s) Orally every 8 hours prn 05/28/2021 Not-Taking Desvenlafaxine ER 100 MG 1 tablet Orally Once a day Active Vitamin B12 1000 MCG 1 tablet Orally Onc e a day 09/26/2023 Active Vraylar 1.5 MG 1 capsule Orally Once a day; Duration: 30 day(s) 01/07/2024 Active Cefdinir 300 MG 1 cap(s) Orally Two times a day; Duration: 7 days 03/17/2024 Active Vitamin D3 125 MCG (5000 UT) 1 capsule O rally Once a day; Duration: 30 day(s) 09/26/2023 Active hydroCHLOROthiazide 12.5 MG 1 capsule in the morning Orally Once a day; Duration: 90 days 06/02/2023 Active Vital Signs Blood pressure systolic 130 mm Hg 03/17/20 24 Blood pressure diastolic 80 mm Hg 024 Heart Rate 89 /min 03/17/2024 Height 69.75 in 03/17/2024 Weight 320 lbs 03/17/2024 BMI 46.24 kg/m2 03/17/2024 Encounters Encounter Location Date Provider Diagnosis [facility] [address] [facility] [address] [place] [id number] 03/17/2024 Nicci Samuel Acute URI J06.9 Assessments Encounter Date Diagnosis (ICD Code) Assessment Notes Treatment Notes Treatment Clinical Notes Section Notes 03/17/2024 Acute URI (ICD-10 - J06.9) Has bromfed at home. Plan Of Treatment Medication Medication Name Sig Start Date Stop Date Notes Cefdinir 300 MG 1 cap(s) Orally Two times a day; Duration: 7 days 03/17/2024 Treatment Notes Assessment Notes Acute URI Has bromfed at home. Next Appt Details Follow Up: prn, Reason: Progress Notes * DUNIA ShoaibabiliokizzyDOB:2000 (24 yo F)Acc No.[id number]:03/17/2024 Progress Notes Patient: Karo BARRON Provider: MONA He :2000 A ge:23 Y S ex:Female Date:03/17/2024 Phone: Address:[address] [place], [place] [address] Subjective: * Chief Complaints: * 1 . Nasal congestion, sore throat. * HPI: E NT/respiratory: 23 year old female presents with c/o sore throat s wallowing painful, feels scratchy. c/o nasal congestion a ll the time, green drainage. c/o ear pain l eft side. c/o rhinorrhea c lear in color. c/o headache l eft sided. Denies : Fever. * ROS: D ERMATOLOGY: no R regino. [...] month. * Medications: T aking Desvenlafaxine ER 100 MG Tablet Extended Release 24 Hour 1 tablet Orally Once a day , Taking hydroCHLOROthiazide 12.5 MG Capsule 1 capsule in the morning Orally Once a day , Taking Vitamin D3 125 MCG (5000 UT) Capsule 1 capsule Orally Once a day , Taking Vitamin B12 1000 MCG Tablet Extended Release 1 tablet Orally Once a day , Taking Vraylar 1.5 MG Capsule 1 capsule Orally Once a day , Taking Zepbound 2.5 MG/0.5ML Solution Auto-injector 2.5 mg Subcutaneous once a week , Not-Taking Ondansetron HCl 8 MG Tablet 1 tab(s) Orally every 8 hours prn , Discontinued Ferrous Sulfate 325 (65 Fe) MG Tablet Delayed Release 1 tablet Orally once daily , Discontinued Medrol 4 MG Tablet Therapy Pack as directed orally daily , Discontinued Benzonatate 200 MG Capsule 1 capsule as needed Orally Three times a day , Medication List reviewed and reconciled with the patient * Allergies: N .K.D.A. Objective: * Vitals: W t:320, Temp:97.4, BP:130/80, HR:89, Nurse:SVETLANA, Ht: 69.75, BMI:46.24. * Examination: E NT/Respiratory: General Appearance: N AD. E ars: a uditory canals normal bilaterally, TM's WNL. N ose : turbinates red, congested. S inuses : tender maxillary sinuses bilaterally. O ral cavity : erythema without exudate on pharynx, PND present. N ramón : n o cervical lymphadenopathy. H eart : R RR, normal S1 S2, no murmurs. L ungs: c lear to auscultation bilaterally. Assessment: * Assessment: 1. Michele stearns URI - J06.9 (Primary) Plan: * Treatment: Value Reference Range w bc 9.9 3.5 - 10 * l ym 20.2 15 - 50 * m id 5.2 2 - 15 * g ran 74.6 35 - 80 * r bc 5.34 3.5 - 5.5 * h gb 12.6 11.5 - 16.5 * h ct 39.5 35 - 55 * m cv 73.9 75 - 100 * m ch 23.6 25 - 35 * m chc 31.9 31 - 38 * p lat 149 100 - 400 * Karo Colon 03/17/2024 10: 34:37 AM > Provider reviewed results while patient in office.Nicci Baker 03/17/2024 2:55:25 PM > Notes: Has bromfed at home.?? * Procedure Codes: 3 6416 CAPILLARY BLOOD DRAW, 13202 CBC WITH AUTO DIFF * Follow Up: p rn * Images: Billing Information: * Visit Code: 23713 Office Visit, Est Pt., Level 3. * Procedure Codes: 72798 CAPILLARY BLOOD DRAW. 15627 CBC WITH AUTO DIFF. * Electronic signature of MONA Jolley on 04/30/2025 at 11:07 AM EST Sign off status: Pending * Provider: MONA He Date: 1 Generated for Printi ng/Faxing/eTransmitting on: 07/01/2024 11:07 AM EST History and Physical Notes * HPI (History of Present Illness) Category Sub-Category Detail Notes Category Not es ENT/respiratory sore throat swallowing painful, feels scratchy ear pain left side Fever headache left sided rhinorrhea clear in color nasal congestion all the time, green drainage Examination Category Sub-Category Detail Notes Category Not es ENT/Respiratory Oral cavity : erythema without exudate on pharynx, PND present Sinuses : tender maxillary sin uses bilaterally Ears: auditory canals norm al bilaterally, TM's WNL Neck : no cervical lymphade nopathy Heart : RRR, normal S1 S2, n o murmurs Lungs: clear to auscultatio n bilaterally General Appearance: NAD Nose : turbinates red, kaleb ested
--- OUTSIDE RECORDS SUMMARY | 2024-06-23 08:00 | XMS_ITS ---
Author Organization Ashley Address 1210 [facility] [address] [place] [id number] Care Team Providers Care Baking Factory Worker Name Role Phone Nicci Baker Primary Care Provider [phone] REASON FOR VISIT B12 Shot Medications Medication [...] Encounter Location Date Provider Diagnosis Ashley 1210 [facility] [address] [place] [phone] 06/23/2024 Nicci Baker Vitamin B12 deficien cy E53.8 Assessments Encounter Date Diagnosis (ICD Code) Assessment Notes Treatment Notes Treatment Clinical Notes Section Notes 06/23/2024 Vitamin B12 deficiency (ICD-10 - E53.8) Plan Of Treatment No Information Medications Administered Medication Instructions Date of Administration Dosage Notes B-12 06/23/2024 1 mL Progress Notes * Robbi COLONB:2000 (24 yo F)Acc No.[id number]:06/23/2024 Patient: Karo BARRON Provider: MONA He :2000 A ge:23 Y S ex:Female Date:06/23/2024 Phone: Address:[address] [place] [address] Adolfo Rodriguez, [id number] Subjective: * Chief Complaints: * 1 . [...] deficiency) * Procedure Codes: J 3420 B-12, 41999 ADMINISTRATION OF INJECTION * Images: Billing Information: * Visit Code: * Procedure Codes: J3420 B-12. 15670 ADMINISTRATION OF INJECTION. * Electronic signature of MONA Jolley on 04/30/2025 at 11:07 AM EST Sign off status: Pending * Provider: MONA He Date: 0 06/23/2024 Generated for Shantanu wong/Alondra/eTsandysmtamica on: 1 07/01/2024 11:07 AM EST
--- OUTSIDE RECORDS SUMMARY | 2024-07-01 09:20 | XMS_ITS ---
Author Organization [facility] Address [address] [place] [phone] Care Team Providers Care Oceanographer Geological Name Role Phone Nicci Baker Primary Care [...] 07/01/2024 Encounters Encounter Location Date Provider Diagnosis [facility] [address] [place] [phone] 07/01/2024 Nicci Baker Acute URI J06.9 Assessments [...] Notes * DUNIA, KaroDOB:2000 (24 yo F)Acc No.[id number]:07/01/2024 Progress Notes Patient: Karo BARRON Provider: MONA He :2000 A ge:23 Y S ex:Female Date:07/01/2024 Phone: Address:[address] [place], [place] [address], [place] Subjective: * Chief Complaints: * 1 . [...] * Procedure Codes: 9 4760 [place], [address] STREP A ASSAY W/OPTIC, Modifiers: QW , 52001 CAPILLARY BLOOD DRAW, 25960 CBC WITH AUTO DIFF, 3074F SYST BP LT 130 MM HG, 3079F DIAST BP 80-89 MM HG * Follow Up: p rn * Images: Billing Information: * Visit Code: 91619 Office Visit, Est Pt., Level 3. * Procedure Codes: [address] [place]. [address] STREP A ASSAY W/OPTIC. Modifiers: QW 28821 CAPILLARY BLOOD DRAW. 94324 CBC WITH AUTO DIFF. 3074F SYST BP LT 130 MM HG. 3079F DIAST BP 80-89 MM HG. * Electronic signature of MONA Jolley on 04/30/2025 at 11:08 AM EST Sign off status: Pending * Provider: MONA He Date: 0 07/01/2024 Generated for Shantanu wong/Alondra/Donnie on: 1 07/01/2024 11:08 AM EST History and Physical Notes * [...]
--- OUTSIDE RECORDS SUMMARY | 2024-08-19 10:15 | XMS_ITS ---
Author Organization [facility] Address [address] [facility] [address] [place] [id number] Care Team Providers Care Sr. Director Product Management Name Role Phone Iraj Bakera Primary Care [...] Interpretation:Negative Performing Lab: Notes/Report: Test performed by [facility] [employer] [address], [address], [place] [address] Phoenix Schwarz MD, Development Disability Specialist CLIA: [id number] B burgdorferi (Lyme Disease) IgG Negative Negative B burgdorferi (Lyme Disease) IgM Negative Negative P-Comprehensive Metabolic Pa gene (CMP) Reviewed date:08/26/2024 02:10:10 PM Interpretation:Glu 101 Performing Lab: Notes/Report: Test performed by [facility] , [address], [place] [address] Phoenix Schwarz MD, Development Disability Specialist CLIA: [id number] Sodium 141 135-145 mmol/L Potassium 4.1 3.5-5.3 [...] mg/dL A/G Ratio 1.5 1.1-2.5 [facility]-Arthritis Panel, [facility] Reviewed date:08/26/2024 02:10:10 PM Interpretation:CRP 0.81 Performing Lab: Notes/Report: Test performed by [facility] [address] [facility] , [address], [place] [address] Phoenix Schwarz MD, Development Disability Specialist CLIA: [id number] Rheumatoid Factor <10 <14.1 IU/mL C-Reactive Protein (CRP) 0.81 <0.50 mg/dL Antinuclear Antibodies (EVER) Screen, Reflex EVER 9 Panel Negative Negative This test is performed by Multiplex Bead Immunoassay methodology. Antinuclear Antibodies (EVER) Result Note SEE COMMENT For positive Autoantibodies, please refer to the interpretive chart here: [email or web address] [email or web address]/[email or web address] pretive-Chart.pdf CCP Antibodies <0.5 <0.5-3.0 U/mL [...] W/U Status Risk Notes Problem Morbid obesity (022620515) Obesity, morbid, BMI 40.0-49.9 (E66.01) Active confirmed Vital Signs Blood pressure systolic 130 mm Hg 08/20/19 25 Blood pressure diastolic 80 mm Hg 025 Heart Rate 100 /min 08/19/2024 Height 69.75 in 08/19/2024 Weight 335 lbs 08/19/2024 BMI 48.41 kg/m2 08/19/2024 Encounters Encounter Location Date Provider Diagnosis [facility] [address] [facility] [address] [place] [address], [place] [id number] 08/19/2024 Nicci Baker Polyarthralgia M25.5 0 and [...] Notes * Karo COLONDOB:2000 (24 yo F)Acc No.[id number]:08/19/2024 Progress Notes Patient: Karo BARRON Provider: MONA He :2000 A ge:23 Y S ex:Female Date:08/19/2024 Phone: Address:[address] [place], [place] [address]Adolfo [facility] Subjective: * Chief Complaints: * 1 . [...] Flu Test- Nasal Swab, Modifiers: QW , 50040 CBC WITH AUTO DIFF, 16465 VENIPUNCT, ROUTINE*, 3075F SYST BP GE 130 - 139MM HG, 3079F DIAST BP 80-89 MM HG * Follow Up: v ia phone to report test results * Images: Billing Information: * Visit Code: 28538 Office Visit, Est Pt., Level 3. * Procedure Codes: 38348 Flu Test- Nasal Swab. Modifiers: QW 31429 CBC WITH AUTO DIFF. 26147 VENIPUNCT, ROUTINE*. 3075F SYST BP GE 130 - 139MM HG. 3079F DIAST BP 80-89 MM HG. * Electronic signature of MONA Jolley on 04/30/2025 at 11:08 AM EST Sign off status: Pending * Provider: MONA He Date: 0 08/19/2024 Generated for Shantanu wong/Alondra/Donnie on: 1 07/01/2024 [...]
--- OUTSIDE RECORDS SUMMARY | 2024-08-24 03:55 | XMS_ITS ---
Author Organization [facility] Address [address] [facility] [address] [place] [phone] Care Team Providers Care Satellite Tv Technician Name Role Phone Nicci Baker Primary Care Provider [phone] REASON FOR VISIT Lab Draw Encounters Encounter Location Date Provider Diagnosis [facility] [address] [place] [id number] 08/24/2024 Nicci Baker Plan Of Treatment No Information Progress Notes * Karo COLONDOB:2000 (24 yo F)Acc No.[id number]:08/24/2024 Patient: Shoaib BARRONssica Provider: MONA He :2000 A ge:23 Y S ex:Female Date:08/24/2024 Phone: Address:[place] [facility] Subjective: * Chief Complaints: * 1 . Lab Draw. * Medical History: Objective: * Vitals: Assessment: Plan: * Treatment: * Images: Billing Information: * Visit Code: * Procedure Codes: * Electronic signature of MONA Jolley on 04/30/2025 at 11:08 AM EST Sign off status: Pending * Provider: MONA He Date: 0 08/24/2024 Generated for Shantanu wong/Alondra/eTransmitting on: 1 07/01/2024 11:08 AM EST
--- OUTSIDE RECORDS SUMMARY | 2024-11-18 11:00 | XMS_ITS ---
Author Organization [facility] Address [address] [facility] [address] [place] [phone] Care Team Providers Care Senior Net Developer Architect Name Role Phone Nicci Baker Primary Care Provider Allergies No Known Allergies REASON FOR VISIT lt ear pain Medications Medication SIG (Take, Route, Fr equency, Duration) Notes Start Date End Date Status Cefdinir 300 MG 1 cap(s) Orally Two times a day; Duration: 10 days 11/18/2024 Active Vital Signs Blood pressure systolic 130 mm Hg 11/19/19 25 Blood pressure diastolic 82 mm Hg 025 Heart Rate 77 /min 11/18/2024 Height 69.75 in 11/18/2024 Weight 336 lbs 11/18/2024 BMI 48.55 kg/m2 11/18/2024 Encounters Encounter Location Date Provider Diagnosis [facility] [address] [place] [id number] 11/18/2024 Nicci Baker History of mastoidit is Z86.69 Assessments Encounter Date Diagnosis (ICD Code) Assessment Notes Treatment Notes Treatment Clinical Notes Section Notes 11/18/2024 History of mastoiditis (ICD-10 - Z86.69) Patient is going to try to get in to see ENT next week at [facility]. She cannot see Dr. Fabian for 3 weeks. Plan Of Treatment Medication Medication Name Sig Start Date Stop Date Notes Cefdinir 300 MG 1 cap(s) Orally Two times a day; Duration: 10 days 11/18/2024 Treatment Notes Assessment Notes History of mastoiditis Patient is going to try to get in to see ENT next week at [facility]. She cannot see Dr. Fabian for 3 weeks. Next Appt Details Follow Up: with ENT, Reason: Progress Notes * Karo COLONDOB:2000 (24 yo F)Acc No.[id number]:11/18/2024 Progress Notes Patient: Karo BARRON Provider: MONA He :2000 A ge:23 Y S ex:Female Date:11/18/2024 Phone: Address:[address] [place], [place] [address], [phone] Subjective: * Chief Complaints: * 1 . [...] < 90MM HG * Follow Up: w [facility] ENT * Images: Billing Information: * Visit Code: 22179 Office Visit, Est Pt., Level 3. * [...] 0 11/18/2024 Generated for Shantanu wong/Alondra/Richarditting on: 1 07/01/2024 11:08 AM EST History [...]
--- OUTSIDE RECORDS SUMMARY | 2025-03-17 08:15 | XMS_ITS ---
Author Organization [facility] Address [facility] [facility] [address] [place] [phone] Care Team Providers Care Refinery Operator Coking Name Role Phone Nicci Baker Primary Care Provider Allergies No Known Allergies REASON FOR VISIT Sore Throat and Dry Cough Encounters Encounter Location Date Provider Diagnosis [place] [address] [place] [id number] 03/17/2025 Nicci Baker Plan Of Treatment No Information Progress Notes * ISAIAH TierakizzyDOB:2000 (24 yo F)Acc No.[id number]:03/17/2025 Progress Notes Patient: Karo BARRON Provider: MONA He :2000 A ge:24 Y S ex:Female Date:03/17/2025 Phone: Address[place] Subjective: * Chief Complaints: * 1 . [...] He Date: Generated for Shantanu wong/Alondra/Donnie on: 07/01/2024 11:07 AM EST
--- OUTSIDE RECORDS SUMMARY | 2025-03-25 05:15 | XMS_ITS ---
Author Organization [facility] Address [address] [facility] [address] [place] [phone] Care Team Providers Care Test Borer Name Role Phone Nicci Baker Primary Care Provider [phone] Allergies No Known Allergies Results Component Value [...] Encounter Location Date Provider Diagnosis [facility] [address] [facility] [address] [place] [id number] 03/25/2025 Nicci Baker Acute URI J06.9 Assessments [...] Notes * Karo COLONDOB:2000 (24 yo F)Acc No.[id number]:03/25/2025 Progress Notes Patient: Karo BARRON Provider: MONA He :2000 A ge:24 Y S ex:Female Date:03/25/2025 Phone: Address:[address] [id number] Subjective: * Chief Complaints: * 1 . Sore throat. * HPI: E NT/respiratory: 24 year old female presents with c/o sore throat P t presents today with c/o sore throat and dry cough for almost 2 weeks. Pt sts that she had a CBC done at [facility] on Friday that only showed anemia. c/o [...] * Images: Billing Information: * Visit Code: 32803 Office Visit, Est Pt., Level 3. * Procedure Codes: 92186 STREP A ASSAY W/OPTIC. Modifiers: QW * Electronic signature of MONA Jolley on 04/30/2025 at 11:07 AM EST Sign off status: Pending * Provider: MONA He Date: 05/25/2024 Generated for Shantanu wong/Alondra/Donnie on: 07/01/2024 11:07 AM EST History and Physical Notes * HPI (History of Present Illness) Category Sub-Category Detail Notes Category Not es ENT/respiratory sore throat Pt presents toda y with c/o sore throat and dry cough for almost 2 weeks. Pt sts that she had a CBC done at [facility] on Friday that only showed anemia cough [...]
--- OUTSIDE RECORDS SUMMARY | 2025-04-30 11:07 | XMS_ITS | Clinical Summary ---
Author Organization [facility] Address [address] [place] [address] Phone Care Team Providers Care Transportation Coordinator Name Role Phone Jasmeet SANTIAGO, Bhavana Maynard Unavailable Conditions or Problems Problem Name Problem Code Onset Date Status Entry Date Provider Comment Standard Description Annotate Ear pain, left 4931463170 (SNOMED CT) 06/01 Active 06/01 Cesar Argueta MD Otalgia of left ear Acute mastoiditis, left 516855611 (SNOMED CT) 06/01 Active 06/01 Cesar Argueta MD Acute mastoiditis Screening for HIV 730663474 (SNOMED CT) 12/17 Active 12/17 Gorge Handy Procedure carried out on subject Acute recurrent suppurative otitis media, left 186768211 (SNOMED CT) 12/04 Active 12/04 Sasha Malik Recurrent acute suppurative otitis media Acute recurrent serous otitis media, left 813612698 (SNOMED CT) 12/03 Active 12/03 Sasha Malik Acute non-suppurat gokul serous otitis media Serratia marcescens infection B96.89 (ICD-10-CM) 12/03 Active 12/03 Cesar Argueta MD Other specified bacterial agents as the cause of diseases classified elsewhere Facial swelling 802423645 (SNOMED CT) 12/03 Active 12/03 Aida Argueta Facial swelling Recurrent otitis media (ROM) 4322859429481 104 (SNOMED CT) 12/03 Inactive 12/03 Aida Argueta Otitis media of right ear Chronic mastoiditis, left 43343619 (SNOMED CT) 12/03 Active 12/03 Lydia Medrano Chronic mastoiditis Medications Medication Instructions Start Date Stop Date Generic Name NDC Provider ceftriaxone recon kikanoemi Rocephin 2gm IV Q 24hrs/ OPAT 06/01 ceftriaxone recon katy espana recon solnoemi Rocephin 2gm IV Q 24hrs INPAT 06/01 ceftriaxone recon katy Gonzales METRONIDAZOLE 500 MG TABS Take 1 tablet by mouth three times a day 06/01 metronidazole 86190519957 Cesar Argueta MD WEGOVY 0.5 MG/0.5ML SOAJ 06/01 semaglutide (weight loss) 42816544376 Lynn Jarvis HYDROCHLOROTHIAZIDE 12.5 MG TABS 06/01 hydrochlorothiazide 95237820286 [facility] VENLAFAXINE HCL 37.5 MG TABS 06/01 venlafaxine 75833636654 [facility] PRISTIQ 100 MG [id number] once a day desvenlafaxine succinate 52093532308 [facility] ZOSYN 4-0.5 GM/100ML SOLN Q 8 hrs/OPAT 01/26 piperacillin-tazoba ctam-dextrs 73435622580 Bhavana Alamo RN WEGOVY 0.5 MG/0.5ML SOAJ 06/01 semaglutide (weight loss) 93026530069 Farrah Gunjan VENLAFAXINE HCL 37.5 MG TABS 06/01 venlafaxine 13145973817 Farrah Gunjan HYDROCHLOROTHIAZIDE 12.5 MG TABS 04/26 hydrochlorothiazide 39210628669 Farrah Gunjan Medications Administered No information available. [...] Procedures Code Procedure Name Date Entry Date CPT-43209 CMP [id number] CBC with Differential 2024 CPT-13806 C- reactive protein CPT-76221 Sedimentation Rate (ESR) 202 09/17/27 CPT-94736 CMP [id number] CBC with Differential 2024 CPT-39099 C- reactive protein CPT-52685 Sedimentation Rate (ESR) 09/16/20 CPT-sl STAT Labs [id number] CBC with Differential 2024 CPT-95311 CMP CPT-94709 C- reactive protein CPT-31909 Sedimentation Rate (ESR) 09/17/15 CPT- stat weekly Stat Weekly Labs CPT-70839 X-Ray, Chest (PICC Placement only) 06/02 CPT-28381 CMP [id number] CBC with Differential 2024 CPT-04188 C- reactive protein CPT-88703 Sedimentation Rate (ESR) 09/16/13 CPT-sl STAT Labs CPT-sl STAT Labs CPT-sl STAT Labs CPT-39616 CMP [id number] CBC with Differential 2023 CPT-47681 C- reactive protein CPT-22244 Sedimentation Rate (ESR) 08/24/14 CPT-sl STAT Labs CPT-sl STAT Labs CPT-47274 CMP [id number] CBC with Differential 2023 CPT-33984 C- reactive protein CPT-67215 Sedimentation Rate (ESR) 202 08/23/24 CPT- stat weekly Stat Weekly Labs CPT-sl STAT Labs CPT-sl STAT Labs CPT-22383 CMP [id number] CBC with Differential 2023 CPT-57811 C- reactive protein CPT-29438 Sedimentation Rate (ESR) 202 08/23/17 Vital Signs [...]
--- OUTSIDE RECORDS SUMMARY | 2025-04-30 11:08 | XMS_ITS | Data Portability ---
Author Organization [facility] Address [address] [facility] [address] [place] [address] Care Team Providers Care Paperhanger Pipe Name Role Phone [facility] Primary Care [...] [address] [facility], [address] [place] [address] [place], [id number], 4 17:20:00 Patient TargetsNo targets recorded. Patient Instructions Encounter Date Encounter Id Patient Instructions Last Modified By Organization Details Last Modified Time 12/04/[id number] of tempora l bone reviewed [...] mastoidectomy [email or web address] Not available 12/04/2023 12:48:07 01/01/2024 [id number] 1. Dae Photos obtained in office today 2. Ordered CT scan of the Temporal Bone 3. F/u with CT results in 1 month [email or web address] Not available 01/01/2024 13:44:11 09/02/2024 [id number] 1. Most recent C T of temporal [...] we may get an opinion from the [facility] regarding mastoid exploration. She might have none otogenic otalgia [email or web address] Not available 09/02/2024 17:27:50 Reason for Referral None Reported. Results Created Date Observation Date Name Description Value Unit Range Abnormal Flag Note LastModifiedBy Organization Detail LastModifiedTime 01/09/20 24 01/09/2024 CT, tempo ral bone, w/o contr ast Brianna loja [facility] [address] [place] [address] Stephenie palomino Name: BELEM palomino : 001 [...] were also obtain ed. FINDIN GS: The farmworker bulbs al audito ry canals , tympan ic [...] Julisa andrews MD on 024 11:[address] [facility] [address] [place], [address], 01/12/2024 09:49:28 09/07/19 25 09/02/2024 audio gram No observ ation record ed. BARCODE Not Available 2024 08:58:28 Result Notes Documentation Provider Name and Address Organization Details Recorded Time Ct, Temporal Bone, W/o Contrast : [address] [place] [address] Patient Name: JERED COLON Patient : 2000 [...] Jovany Nunes MD K PIMENTEL MD [address] [place], [address], [facility] 01/12/2024 08:37:43 Procedures Surgical History Date Name Laterality Status Provider Name and Address Organization Details Recorded Time 09/03/19 25 Tympanogram completed GINA ROMAN, CHERRY [address] [place], [address], [facility] 09/02/2024 13:45:55 09/03/19 25 Audiogram completed CHERRY HORTON [address] [place], [address], [facility] 09/02/2024 13:45:53 09/03/19 25 Binocular Microscopy completed Caleb Hagan [facility] 09/02/2024 14:15:26 12/04/19 24 Binocular Microscopy completed Caleblisa Hagan [facility] 12/04/2023 12:43:44 section completed Kaylin Cao [facility] 12/04/2023 11:01:59 cholecystectomy completed Kaylin Edmondson [facility] 12/04/2023 11:02:13 Imaging Results None recorded. Procedure [...] Updated DateTime 5 177.8 cm 47.8 kg/m2 089686. 26 g 97.4 [degF] 82 /min 139/93 mm[Hg] [facility] 5 13:13:06 Date Recorded Body height Body mass index (BMI) Body weight Heart rate Systolic And Diastolic Provider Name and Address Organization Details Last Updated DateTime 12/04/2023 10.16 cm 247.2 kg/m2 2551.46 g 83 /min 147/111 mm[Hg] Kaylin Edmondson [facility] 12/04/2023 10:59:12 Date Recorded Body height Body mass index (BMI) Body weight Body temperature Heart rate Systolic And Diastolic Provider Name and Address Organization Details Last Updated DateTime 4 177.8 cm 46.8 kg/m2 379378. 11 g 97.3 [degF] 97 /min 113/87 mm[Hg] [facility] 4 13:21:57 Social History None recorded. Functional [...] Stomach trouble N Ulcers N Heart Attack ([place]) N Diabetes N Rheumatic Fever N Bleeding [...] ICD10 Code Diagnosis IMO Codes Diagnosis Note [id number] DAREK PIMENTEL MD [facility] [address] [place] [address] 12/04/2023 09:29:39 12/04/2023 13:13:42 Bilateral earache 094766212 H92.03 Chronic le ft mastoiditis 1377642726 184143 H70.[address] temporal bone = opacificat ion left mastoid cavity [id number] MD [facility] [address] [place] [address] 01/01/2024 13:11:08 01/08/2024 11:04:06 Chronic left mastoiditis 9315265931 501465 H70.[address] temporal bone = opacificat ion left mastoid cavity Bilateral earache 658528 003 H92.03 [id number] DAREK PIMENTEL MD [place] [facility] [address] [place] [address] 09/02/2024 13:04:52 09/02/2024 14:24:09 Chronic left mastoiditis 5694730347 245141 H70.[address] temporal bone = opacificat ion left mastoid cavity01/08 CT temporal = There is a small amount of fluid in the left mastoid air cells. Thetempora l bones are otherwise normal in appearance . [id number] CHERRY HORTON [place] [facility] [address] [place] [address] 09/02/2024 13:44:47 09/03/2024 04:39:54 Dysfunction of left eustachian tube 6193719493 402969 H69.92 43914315 Tinnitus of left ear 560 8588399 106 H93.12 2878033 Mixed cond uctive AND sensorineural hearing loss 55976750 H90.A32 58777378 Bilateral hearing loss 48895511 H90.A21 [id number] Health Concerns Section Related Observation LastModified by Organization Detai ls LastModified Time None Recorded Concern Status LastModified by Organization Details LastModified Time None Recorded Advance Directives Directive None Recorded Payers Insurance Date Sequence Insurance Name Policy Number Policy Mcmanus Covered Member ID Mcmanus Member ID Guarantor Name 04/09/2025 1 [place] [id number] Federico Colon [id number] Jered Colon Notes Date Note Type Note Provider Name and Address Organization Details Recorded Time 12/04/2023 text/html ROS as noted in the HPI Jered Colon (23F) visits our office for a a consultation regarding her left ear. She has had recurring infections and pain for 3 months. Jered was in the [facility] ER on 12/03/23 for complaints of [...] opacification left mastoid cavity DAREK PIMENTEL MD [address] [place] [address], [address], [facility] 12/04/2023 13:00:07 01/01/2024 text/html Jered visits us in office today to follow up on her left mastoiditis. Pt had a pic line placed in the right arm for treatement of an infection. Pain had subsided for a few weeks, but returned in the past few days. Pt had a CT scan about 4 weeks ago. DAREK PIMENTEL MD [address] [place] [address] [place], [address], [facility] 01/02/2024 15:44:38 09/02/2024 text/html [...] Rocephin for 7 weeks. DAREK PIMENTEL MD [address] [place] [address], [address], [facility] 09/02/2024 17:28:07 OBGyn Episode No OBEpisode recorded.
--- OUTSIDE RECORDS SUMMARY | 2025-04-30 11:08 | XMS_ITS | Clinical Summary ---
Author Organization [facility] Address [address] [id number] Care Team Providers Care Postpartum Nurse Name Role Phone Nicci Baker Primary Care Provider Social History Tobacco Use Types Packs/Day Years [...] patient's age to complete this topic Insurance [id number] [facility] PPO Member Subscriber Plan / Payer (Ef fective 2023-Present) Name:Karo Colon Relation to Subscriber:Spouse Name:FAVIAN COLON Date of :1998 (Home) Address: [address] [place], [place] [address] [address] Payer ID:[id number] (NAIC) Type:Not on file Address: [address] [place] [id number] Care Teams Postpartum Nurse Relationship Specialty Start Date End Date Nicci Baker PA [address] [place] [address] [place] [id number] PCP - General Physician Senior Network Security Engineer 12/04/23
--- OUTSIDE RECORDS SUMMARY | 2025-04-30 11:09 | XMS_ITS | Patient Health Record ---
[facility] Organization [facility] Address [address] [place] [id number] Care Team Providers Care Hothouse Worker Name Role Phone Nicci Baker Primary [...] Interpretation:Negative Performing Lab: Notes/Report: Test performed by [employer] [address], [place] [address] Phoenix Schwarz MD, Data Collector CLIA: [id number] B burgdorferi (Lyme Disease) IgG Negative Negative B burgdorferi (Lyme Disease) IgM Negative Negative P-Comprehensive Metabolic Pa gene (CMP) Reviewed date:08/26/2024 02:10:10 PM Interpretation:Glu 101 Performing Lab: Notes/Report: Test performed by [facility] [address] [place] [address] [address], [place] [address] Phoenix Schwarz MD, Data Collector CLIA: [id number] Sodium 141 135-145 mmol/L Potassium 4.1 3.5-5.3 [...] 0.81 Performing Lab: Notes/Report: Test performed by [facility] [address] [place] [address] [address], [place] [address] Phoenix Schwarz MD, Data Collector CLIA: [id number] Rheumatoid Factor <10 <14.1 IU/mL C-Reactive Protein (CRP) 0.81 <0.50 mg/dL Antinuclear Antibodies (EVER) Screen, Reflex EVER 9 Panel Negative Negative This test is performed by Multiplex Bead Immunoassay methodology. Antinuclear Antibodies (EVER) Result Note SEE COMMENT For positive Autoantibodies, please refer to the interpretive chart here: [email or web address] [email or web address] CCP Antibodies <0.5 <0.5-3.0 U/mL Erythrocyte Sedimentation Rate (ESR), Automated Specimen received beyond stability.. Test cannot be performed. Acceptable stability from collection is [24 hours]. Rapid Strep- Inhouse Reviewed date:04/11/2025 08:03:44 AM Interpretation:Negative Performing Lab: Notes/Report: Negative strep test Negative CT scan : Temporal bones w/ and w/o IV contrast Reviewed date:05/26/2024 02:38:23 PM Interpretation:not performed due to insurance Performing Lab: Notes/Report: not performed due to insurance P-Sed Rate (ESR) Reviewed date:08/26/2024 02:10:10 PM Interpretation:8 Performing Lab: Notes/Report: Test performed by [employer] [address] [place] [address] , [address], [place] [address] Phoenix Schwarz MD, Data Collector CLIA: [id number] Erythrocyte Sedimentation Rate (ESR), Automated 8 <26 [...] Status Risk Notes Problem Gastroesophageal reflux disease (522811689) GERD (gastroesophageal reflux disease) (K21.9) Active confirmed Problem Hypertension (30631280) HTN (hypertension) (I10) Active confirmed Problem Hyperlipidemia (82537795) Hyperlipidemia (E78.5) Active confirmed Problem Vitamin D deficiency (00262143) Vitamin D deficiency (E55.9) Active confirmed Problem Paresthesia (28844859) Paresthesia (R20.2) Active confirmed Problem Mixed anxiety and depressive disorder (050847667) Depression with anxiety (F41.8) Active confirmed Problem Hearing loss (99018792) Hearing loss (H91.90) Active confirmed Problem Amenorrhea (42983259) Amenorrhea (N91.2) Active confirmed Problem Body mass index 40+ - severely obese (691408766) BMI 45.0-49.9, adult (Z68.42) Active confirmed Problem Migraine (88676042) Migraine wit hout status migrainosus, not intractable, unspecified migraine type (G43.909) Active confirmed Problem Anemia (014319105) Anemia, unspecified type (D64.9) Active confirmed Problem Morbid obesity (900346029) Obesity, morbid, BMI 40.0-49.9 (E66.01) Active confirmed Problem Insulin resistance (227822696) Insulin resistance (E88.81) Active confirmed Problem Chronic serous otitis media (75249458) Left chronic serous otitis media (H65.22) Active confirmed Problem Refractory migraine without aura (354167542) Intractable migraine without aura and without status migrainosus (G43.019) Active confirmed Problem Anxiety depression (911662112) Anxiety with depression (F41.8) Active confirmed Problem Major depression, single episode (21815988) Major depressive disorder with current active episode, unspecified depression episode severity, unspecified whether recurrent (F32.9) Active confirmed Vital Signs Heart Rate 115 /min 03/25/2025 Blood pressure diastolic 72 mm Hg 03/25/2025 Height 69.75 in 03/25/2025 Blood pressure systolic 126 mm Hg 03/25/2025 Weight 342.6 lbs 03/25/2025 BMI 49.51 kg/m2 03/25/2025 Encounters Encounter Location Date Provider Diagnosis [facility] 121 [facility] [address] [place] [id number] 06/23/2024 Nicci Baker Vitamin B12 deficien cy E53.8 [facility] 1209 [facility] [address] [place] [id number] 07/01/2024 Nicci Baker Acute URI J06.9 [facility] 121 [facility] [address] [place] [id number] 08/19/2024 Nicciconstance Baker Polyarthralgia M25.5 0 and Obesity, morbid, BMI 40.0-49.9 E66.01 [facility] [address] [place], [place] [id number] 08/24/2024 Nicci Crowdy [facility] [address] [place], [place] [id number] 11/18/2024 Nicci Crowdy History of mastoidit is Z86.69 [facility] [address] [place], [place] [id number] 03/25/2025 Nicci Crowdy Acute URI J06.9 [facility] [address] [place], [place] [id number] 05/26/2024 Nicci Crowdy History of mastoidit is Z86.69 [facility] [address] [place], [place] [id number] 06/02/2024 Nicci Crowdy [facility] [address] [place], [place] [id number] 06/11/2024 Nicci Crowdy HTN (hypertension) I 10 ; Iron deficiency E61.1 ; Vitamin D deficiency E55.9 ; Diabetes mellitus screening Z13.1 ; Anemia, unspecified type D64.9 ; Thyroid disorder screen Z13.29 ; Hyperlipidemia E78.5 and Vitamin B12 deficiency E53.8 [facility] [address] [place], [place] [id number] 06/16/2024 Nicci Crowdy [facility] [address] [place] [id number] 06/16/2024 Nicci Crowdy [facility] [address] [place], [place] [id number] 07/05/2024 Nicci Crowdy [facility] [address] [place], [place] [id number] 08/26/2024 Nicci Crowdy [facility] [address] [place], [place] [id number] 10/01/2024 Nicci Crowdy [facility] [address] [place], [place] [id number] 10/06/2024 Nicci Crowdy Assessments Encounter Date Diagnosis (ICD Code) Assessment Notes Treatment Notes Treatment Clinical Notes Section Notes 03/25/2025 Acute URI (ICD-10 - J06.9) CBC shows a virus. Will treat the symptoms. 06/11/2024 HTN (hypertension) (ICD-10 - I10) 06/11/2024 Iron deficiency (ICD-10 - E61.1) 05/26/2024 History of mastoiditis (ICD-10 - Z86.69) 06/23/2024 Vitamin B12 deficiency (ICD-10 - E53.8) 07/01/2024 Acute URI (ICD-10 - J06.9) 08/19/2024 Polyarthralgia (ICD-10 - M25.50) 08/19/2024 Obesity, morbid, BMI 40.0-49.9 (ICD-10 - E66.01) 11/18/2024 History of mastoiditis (ICD-10 - Z86.69) Patient is going to try to get in to see ENT next week at [facility]. She cannot see Dr. Fabian for 3 [...] [employer] [address] [place] [address] [id number] 1EKaro Winter Self - patient is the insured Medications Administered Medication Instructions Date of Administration Dosage Notes B-12 06/23/2024 1 mL Medical (General) History Medical History History ICD Code Hypertension Insulin Resistance COVID 19- 03/23/2021 chronic OM left eAR left mastoiditis Surgical History Surgery Date(Month/Year) [place] Teeth Extractions 07/2019 01/15/2022 cholecystectomy 03/04/2022 C- Section 05/26/2023 left myringotomy tube placement 11/18/2023 Hospitalization History Reason Date(Month/Year) 05/2023 01/2022
[2025-04-30 11:20] VITALS: BP 106/75; PULSE 89; RESP 17; TEMP 36.9; O2SAT 97; BMI 45.6
--- NOTE | 2025-04-30 11:21 | US_ITS ---
PROCEDURE INFORMATION: Exam: US Biophysical Profile Without Non-Stress Test Exam date and time: 04/30/2025 11:52 AM Age: 24 years old Clinical indication: Other: Dec movement; ; Prior surgery; Surgery date: 6+ months; Surgery type: ; Additional info: Bpp- pih, decreased movement TECHNIQUE: Imaging protocol: US biophysical profile without non-stress testing. COMPARISON: US OB BIOPHYSICAL PROFILE 04/28/2025 1:26 PM FINDINGS: heart rate: 146 bpm presentation and position: Breech presentation Placenta: Posterior placenta Amniotic fluid index: JONG is 11.29 cm. BIOPHYSICAL PROFILE: breathing (BPP): 2 /2 gross body movement (BPP): 2 /2 tone (BPP): 2 /2 Amniotic fluid (BPP): 2 /2 Biophysical profile score (BPP): 8 /8 kidneys: Normal kidneys urinary bladder: Normal bladder Umbilical cord vessel number: Three-vessel cord MATERNAL ANATOMY: Cervix: Cervical length measures 2.78 cm. IMPRESSION: Biophysical profile score is 8 out of 8.
== END 2025-04-30 12:30 | disposition home or self-care (01) ==
LOC: OBOUT 11:05 → OB 11:06
PROVIDERS: PCP Physician Assistant; Visit Provider Obstetrics & Gynecology
DX: O13.3 Gestational [pregnancy-induced] hypertension without significant proteinuria, third trimester (principal); O36.8130 Decreased fetal movements, third trimester, not applicable or unspecified; Z3A.33 33 weeks gestation of pregnancy
CPT/HCPCS: 76819; 99212

== ENCOUNTER 2025-05-02 09:49 | Outpatient (CLI) | payer BC, SELFPAY ==
--- NOTE | 2025-05-02 10:00 | US_ITS ---
PROCEDURE: US OB BIOPHYSICAL PROFILE CLINICAL INDICATION: needs BPP on 05/02/25 COMPARISON: US US OB /MATERNAL DETAIL from 01/24/2025 US OB FOLLOW UP from 02/10/2025 [facility] OB FOLLOW UP from 03/23/2025 US OB BIOPHYSICAL PROFILE from 04/13/2025 US OB BIOPHYSICAL PROFILE from 04/18/2025 US OB BIOPHYSICAL PROFILE from 04/21/2025 US OB BIOPHYSICAL PROFILE from 04/28/2025 US OB BIOPHYSICAL PROFILE from 04/30/2025 FINDINGS: Transabdominal sonographic images of the uterus were obtained. From her established due date she is 34weeks 0 days. The following parameters are obtained: Viable Fetus in the cephalic presentation with a posterolateral placenta grade 2. The cervix measures 3.06 cm in length. Measurements: heart Rate = 140bpm Amniotic fluid index: 17.98cm, MVP 6.37 cm Qualitative AFV:2 Breathing movements: 2 Gross Body Movements: 2 Tone: 2 Biophysical profile score: 8 No obvious anomalies evident.Kidneys, profile, stomach, bladder, four-chamber heart, three-vessel cord appear normal. There is unilateral renal pelvis dilation measuring 7.9 mm. IMPRESSION: 1. Viable fetus in the cephalic presentation with a posterolateral placenta grade 2. 2. The fluid is within normal limits with an amniotic fluid index 17.98 cm, MVP 6.37 cm. 3. Biophysical profile is 8/8 with good breathing movement and movement seen. 4. She continues to have unilateral renal pelvis dilation measuring 7.9 mm. Suggest follow-up with the sql server architect post delivery. 5. The rest of the limited anatomical scan appears normal. Dictated by: Donnie Oliver MD 05/02/2025 16:38 Donnie Oliver MD in OV 05/02/2025 16:38
[2025-05-02 10:29] VITALS: BMI 45.6
== END 2025-05-02 11:23 | disposition home or self-care (01) ==
LOC: RAD 09:49 → OBOUT 10:26 → OB 10:26
PROVIDERS: PCP Physician Assistant; Visit Provider Nurse Practitioner Obstetrics & Gynecology
DX: O28.3 Abnormal ultrasonic finding on antenatal screening of mother (principal); O09.293 Supervision of pregnancy with other poor reproductive or obstetric history, third trimester; O99.213 Obesity complicating pregnancy, third trimester; O10.913 Unspecified pre-existing hypertension complicating pregnancy, third trimester; E66.9 Obesity, unspecified; Z3A.34 34 weeks gestation of pregnancy
CPT/HCPCS: 76819; 99212

== ENCOUNTER 2025-05-05 13:27 | Outpatient (CLI) | payer BC, SELFPAY ==
--- OUTSIDE RECORDS SUMMARY | 2024-03-17 08:15 | XMS_ITS ---
Author Organization [facility] Address [address] [place] [id number] Care Team Providers Care Buffet Manager Name Role Phone Nicci Baker Primary Care [...] Duration: 90 days 06/02/2023 Active Vital Signs Weight 320 lbs 03/17/2024 Blood pressure systolic 130 mm Hg 03/17/20 24 Blood pressure diastolic 80 mm Hg 024 Heart Rate 89 /min 03/17/2024 Height 69.75 in 03/17/2024 BMI 46.24 kg/m2 03/17/2024 Encounters Encounter Location Date Provider Diagnosis [facility] [address] [facility] [address] [place] [phone] 03/17/2024 Nicci Samuel Acute URI J06.9 Assessments [...] Follow Up: prn, Reason: Progress Notes * DUNIA, ShoaibabiliokizzyDOB:2000 (24 yo F)Acc No.[id number]:03/17/2024 Progress Notes Patient: Karo BARRON Provider: MONA He :2000 A ge:23 Y S ex:Female Date:03/17/2024 Phone: Address:[address] [place], [place] [address] Subjective: * Chief Complaints: * 1 . [...] Procedure Codes: 3 6416 CAPILLARY BLOOD DRAW, 03789 CBC WITH AUTO DIFF * Follow Up: p rn * Images: Billing Information: * Visit Code: 54757 Office Visit, Est Pt., Level 3. * Procedure Codes: 87502 CAPILLARY BLOOD DRAW. 66310 CBC WITH AUTO DIFF. * Electronic signature of MONA Jolley on 05/05/2025 at 01:41 PM EST Sign off status: Pending * Provider: MONA He Date: Generated for Printi ng/Faxing/eTransmitting on: 07/06/2024 01:41 PM EST History and Physical Notes * [...]
--- OUTSIDE RECORDS SUMMARY | 2024-06-23 08:00 | XMS_ITS ---
Author Organization [facility] Address [address] [facility] [address] [place] [phone] Care Team Providers Care Brush Sander Name Role Phone Nicci Baker Primary Care [...] Encounter Location Date Provider Diagnosis [facility] [address] [place] [phone] 06/23/2024 Nicci Baker Vitamin B12 deficien cy E53.8 Assessments Encounter Date Diagnosis (ICD Code) Assessment Notes Treatment Notes Treatment Clinical Notes Section Notes 06/23/2024 Vitamin B12 deficiency (ICD-10 - E53.8) Plan Of Treatment No Information Medications Administered Medication Instructions Date of Administration Dosage Notes B-12 06/23/2024 1 mL Progress Notes * Robbi COLONB:2000 (24 yo F)Acc No.[id number]:06/23/2024 Patient: Karo BARRON Provider: MONA He :2000 A ge:23 Y S ex:Female Date:06/23/2024 Phone: Address:[address] [place] [address] [place], [id number] Subjective: * Chief Complaints: * 1 . [...] deficiency) * Procedure Codes: J 3420 B-12, 26179 ADMINISTRATION OF INJECTION * Images: Billing Information: * Visit Code: * Procedure Codes: J3420 B-12. 44041 ADMINISTRATION OF INJECTION. * Electronic signature of MONA Jolley on 05/05/2025 at 01:42 PM EST Sign off status: Pending * Provider: MONA He Date: 0 06/23/2024 Generated for Shantanu wong/Alondra/eTsandysmitting on: 1 07/06/2024 01:42 PM EST
--- OUTSIDE RECORDS SUMMARY | 2024-07-01 09:20 | XMS_ITS ---
Author Organization [facility] Address [address] [place] [phone] Care Team Providers Care Cabinet Mounter Name Role Phone Nicci Baker Primary Care [...] 07/01/2024 Encounters Encounter Location Date Provider Diagnosis [facility] [address] [place] [phone] 07/01/2024 Nicci Baker Acute URI J06.9 Assessments [...] Notes * DUNIA, KaroDOB:2000 (24 yo F)Acc No.[id number]:07/01/2024 Progress Notes Patient: Karo BARRON Provider: MONA He :2000 A ge:23 Y S ex:Female Date:07/01/2024 Phone: Address:[address] [place], [place] [address], [place] Subjective: * Chief Complaints: * 1 . [...] * Procedure Codes: 9 4760 [place], [address] STREP A ASSAY W/OPTIC, Modifiers: QW , 78918 CAPILLARY BLOOD DRAW, 67872 CBC WITH AUTO DIFF, 3074F SYST BP LT 130 MM HG, 3079F DIAST BP 80-89 MM HG * Follow Up: p rn * Images: Billing Information: * Visit Code: 01009 Office Visit, Est Pt., Level 3. * Procedure Codes: [address] [place]. [address] STREP A ASSAY W/OPTIC. Modifiers: QW 38529 CAPILLARY BLOOD DRAW. 19480 CBC WITH AUTO DIFF. 3074F SYST BP LT 130 MM HG. 3079F DIAST BP 80-89 MM HG. * Electronic signature of MONA Jolley on 05/05/2025 at 01:41 PM EST Sign off status: Pending * Provider: MONA He Date: 0 07/01/2024 Generated for Shantanu wong/Alondra/Donnie on: 1 07/06/2024 01:41 PM EST History and Physical [...]
--- OUTSIDE RECORDS SUMMARY | 2024-08-19 10:15 | XMS_ITS ---
Author Organization [facility] Address [address] [facility] [address] [place] [id number] Care Team Providers Care Equipment Coordinator Name Role Phone Iraj Bakera Primary Care [...] Interpretation:Negative Performing Lab: Notes/Report: Test performed by [facility] [employer] [address], [address], [place] [address] Phoenix Schwarz MD, Construction Controller CLIA: [id number] B burgdorferi (Lyme Disease) IgG Negative Negative B burgdorferi (Lyme Disease) IgM Negative Negative P-Comprehensive Metabolic Pa gene (CMP) Reviewed date:08/26/2024 02:10:10 PM Interpretation:Glu 101 Performing Lab: Notes/Report: Test performed by [facility] , [address], [place] [address] Phoenix Schwarz MD, Construction Controller CLIA: [id number] Sodium 141 135-145 mmol/L Potassium 4.1 3.5-5.3 [...] mg/dL A/G Ratio 1.5 1.1-2.5 P-Arthritis Panel, [facility] Reviewed date:08/26/2024 02:10:10 PM Interpretation:CRP 0.81 Performing Lab: Notes/Report: Test performed by [facility] [address] [facility] , [address], [place] [address] Phoenix Schwarz MD, Construction Controller CLIA: [id number] Rheumatoid Factor <10 <14.1 IU/mL C-Reactive Protein (CRP) 0.81 <0.50 mg/dL Antinuclear Antibodies (EVER) Screen, Reflex EVER 9 Panel Negative Negative This test is performed by Multiplex Bead Immunoassay methodology. Antinuclear Antibodies (EVER) Result Note SEE COMMENT For positive Autoantibodies, please refer to the interpretive chart here: [email or web address] pretive-[email or web address] CCP Antibodies <0.5 <0.5-3.0 U/mL [...] W/U Status Risk Notes Problem Morbid obesity (291338333) Obesity, morbid, BMI 40.0-49.9 (E66.01) Active confirmed Vital Signs Weight 335 lbs 08/19/2024 Blood pressure systolic 130 mm Hg 08/20/19 25 Blood pressure diastolic 80 mm Hg 025 Heart Rate 100 /min 08/19/2024 Height 69.75 in 08/19/2024 BMI 48.41 kg/m2 08/19/2024 Encounters Encounter Location Date Provider Diagnosis [facility] [address] [facility] [address] [place] [address], [place] [id number] 08/19/2024 Nicci Baker Polyarthralgia M25.5 0 and [...] Notes * Karo COLONDOB:2000 (24 yo F)Acc No.[id number]:08/19/2024 Progress Notes Patient: Karo BARRON Provider: MONA He :2000 A ge:23 Y S ex:Female Date:08/19/2024 Phone: Address:[address] [place], [place] [address]Adolfo [facility] Subjective: * Chief Complaints: * 1 . [...] Flu Test- Nasal Swab, Modifiers: QW , 31931 CBC WITH AUTO DIFF, 21530 VENIPUNCT, ROUTINE*, 3075F SYST BP GE 130 - 139MM HG, 3079F DIAST BP 80-89 MM HG * Follow Up: v ia phone to report test results * Images: Billing Information: * Visit Code: 57590 Office Visit, Est Pt., Level 3. * Procedure Codes: 47134 Flu Test- Nasal Swab. Modifiers: QW 60733 CBC WITH AUTO DIFF. 95950 VENIPUNCT, ROUTINE*. 3075F SYST BP GE 130 - 139MM HG. 3079F DIAST BP 80-89 MM HG. * Electronic signature of MONA Jolley on 05/05/2025 at 01:42 PM EST Sign off status: Pending * Provider: MONA He Date: 0 08/19/2024 Generated for Shantanu wong/Alondra/Donnie on: 1 07/06/2024 01:42 PM EST History and Physical Notes * [...]
--- OUTSIDE RECORDS SUMMARY | 2024-08-24 03:55 | XMS_ITS ---
Author Organization [facility] Address [address] [facility] [address] [place] [phone] Care Team Providers Care Informatics Coordinator Name Role Phone Nicci Baker Primary Care Provider REASON FOR VISIT Lab Draw Encounters Encounter Location Date Provider Diagnosis [facility] [address] [place] [phone] 08/24/2024 Nicci Baker Plan Of Treatment No Information Progress Notes * Karo COLONDOB:2000 (24 yo F)Acc No.[id number]:08/24/2024 Patient: Shoaib BARRONssica Provider: MONA He :2000 A ge:23 Y S ex:Female Date:08/24/2024 Phone: Address:[place] Subjective: * Chief Complaints: * 1 . Lab Draw. * Medical History: Objective: * Vitals: Assessment: Plan: * Treatment: * Images: Billing Information: * Visit Code: * Procedure Codes: * Electronic signature of MONA Jolley on 05/05/2025 at 01:41 PM EST Sign off status: Pending * Provider: MONA He Date: 0 08/24/2024 Generated for Shantanu wong/Alondra/eTransmitting on: 1 07/06/2024 01:41 PM EST
--- OUTSIDE RECORDS SUMMARY | 2024-11-18 11:00 | XMS_ITS ---
Author Organization Ashley Address [address] [facility] [address] [place] [id number] Care Team Providers Care Hearing Specialist Name Role Phone Nicci Baker Primary Care Provider [phone] Allergies No Known Allergies REASON FOR VISIT lt ear pain Medications Medication SIG (Take, Route, Fr equency, Duration) Notes Start Date End Date Status Cefdinir 300 MG 1 cap(s) Orally Two times a day; Duration: 10 days 11/18/2024 Active Vital Signs Weight 336 lbs 11/18/2024 Blood pressure systolic 130 mm Hg 11/19/19 25 Blood pressure diastolic 82 mm Hg 025 Heart Rate 77 /min 11/18/2024 Height 69.75 in 11/18/2024 BMI 48.55 kg/m2 11/18/2024 Encounters Encounter Location Date Provider Diagnosis [facility] [address] [place] [phone] 11/18/2024 Nicci Baker History of mastoidit is Z86.69 Assessments Encounter Date Diagnosis (ICD Code) Assessment Notes Treatment Notes Treatment Clinical Notes Section Notes 11/18/2024 History of mastoiditis (ICD-10 - Z86.69) Patient is going to try to get in to see ENT next week at [facility]. She cannot see Dr. Fabian for 3 weeks. Plan Of Treatment Medication Medication Name Sig Start Date Stop Date Notes Cefdinir 300 MG 1 cap(s) Orally Two times a day; Duration: 10 days 11/18/2024 Treatment Notes Assessment Notes History of mastoiditis Patient is going to try to get in to see ENT next week at [facility]. She cannot see Dr. Fabian for 3 weeks. Next Appt Details Follow Up: with ENT, Reason: Progress Notes * Karo COLONDOB:2000 (24 yo F)Acc No.[id number]:11/18/2024 Progress Notes Patient: Karo BARRON Provider: MONA He :2000 A ge:23 Y S ex:Female Date:11/18/2024 Phone: Address:[address] [place], [place] [address], [phone] Subjective: * Chief Complaints: * 1 . Lt ear pain. * HPI: E NT/respiratory: 23 year old female presents with c/o ear pain P t here for left ear pain and drainage since Friday. Pt states she has contacted ENT and was told that she needed to see her PCP because they did not have any openings. * ROS: D ERMATOLOGY: no R regino. [...] Grand Mother: 62 yrs, diagnosed with Hypertension, Stroke, Heart Disease. M aternal Grand Father: alive 72 yrs. [...] yes, 1-2 drinks a month. * Medications: D iscontinued Vraylar 1.5 MG Capsule 1 capsule Orally Once a day , Discontinued Meloxicam 15 MG Tablet 1 tablet Orally Once a day , Discontinued Zepbound 2.5 MG/0.5ML Solution Auto-injector 2.5 mg Subcutaneous once a week , Medication List reviewed and reconciled with the patient * Allergies: N .K.D.A. Objective: * Vitals: W t: 336, Temp: 98.4, BP: 130/82, HR: 77, Nurse: pe, Ht: 69.75, BMI:48.55. * Examination: G eneral Examination: General Appearance: N AD. H EENT: l eft TM with tube in place, draining clear/yellow fluid, tender mastoid bone. O ral cavity: n o lesions, mucosa moist and WNL, no erythema. N ramón: s upple, no lymphadenopathy. C hest: n ormal shape and expansion. H eart: R SR. L ungs: c lear to auscultation. Assessment: * Assessment: 1. H istory of mastoiditis - Z86.69 (Primary) Plan: * Treatment: * Procedure Codes: 1 036F TOBACCO NON-USER, G8783 BP SCR PRFRM RCMDD DEFIND SCR INTVL, G8752 MOST RECENT SYSTOLIC BP < 140MM HG, G8754 MOST RECENT DIASTOLIC BP < 90MM HG * Follow Up: w [facility] ENT * Images: Billing Information: * Visit Code: 36159 Office Visit, Est Pt., Level 3. * Procedure Codes: 1036F TOBACCO NON-USER. G8783 BP SCR PRFRM RCMDD DEFIND SCR INTVL. G8752 MOST RECENT SYSTOLIC BP < 140MM HG. G8754 MOST RECENT DIASTOLIC BP < 90MM HG. * Electronic signature of MONA Jolley on 05/05/2025 at 01:40 PM EST Sign off status: Pending * Provider: MONA He Date: 0 11/18/2024 Generated for Shantanu wong/Alondra/Richarditting on: 07/06/2024 01:40 PM EST History and Physical Notes * HPI (History of Present Illness) Category Sub-Category Detail Notes Category Not es ENT/respiratory ear pain Pt here for left ear pain and drainage since Friday. Pt states she has contacted ENT and was told that she needed to see her PCP because they did not have any openings Examination Category Sub-Category Detail Notes Category Not es General Examination HEENT: left TM with tube in place, draining clear/yellow fluid, tender mastoid bone Heart: RSR Lungs: clear to auscultatio n General Appearance: NAD Neck: supple, no lymphaden opathy Oral cavity: no lesions, mucosa m oist and WNL, no erythema Chest: normal shape and exp ansion
--- OUTSIDE RECORDS SUMMARY | 2025-03-17 08:15 | XMS_ITS ---
Author Organization [facility] Address [facility] [facility] [address] [place] [phone] Care Team Providers Care Agency Trainer Name Role Phone Nicci Baker Primary Care Provider [phone] Allergies No Known Allergies REASON FOR VISIT Sore Throat and Dry Cough Encounters Encounter Location Date Provider Diagnosis [place] [address] [place] [id number] 03/17/2025 Nicci Baker Plan Of Treatment No Information Progress Notes * ISAIAHTierakizzyDOB:2000 (24 yo F)Acc No.[id number]:03/17/2025 Progress Notes Patient: Karo BARRON Provider: MONA He :2000 A ge:24 Y S ex:Female Date:03/17/2025 Phone: Address[place] Subjective: * Chief Complaints: * 1 . [...] He Date: Generated for Shantanu wong/Alondra/Donnie on: 07/06/2024 01:40 PM EST
--- OUTSIDE RECORDS SUMMARY | 2025-03-25 05:15 | XMS_ITS ---
Author Organization Ashley Address [address] [facility] [address] [place] [id number] Care Team Providers Care Pediatric Oncology Nurse Name Role Phone Nicci Baker Primary Care Provider Allergies No Known Allergies Results Component Value Reference Range Notes Rapid Strep- Inhouse Reviewed date:04/11/2025 08:03:44 AM Interpretation:Negative Performing Lab: Notes/Report: Negative strep test Negative REASON FOR VISIT sore throat Medications Medication SIG (Take, Route, Fr equency, Duration) Notes Start Date End Date Status 28-0.8 MG 1 tablet Orally Once a day Active Labetalol HCl 100 MG 1 tablet Orally Twice a day Active Vital Signs Weight 342.6 lbs 03/25/2025 Blood pressure systolic 126 mm Hg 03/25/20 25 Blood pressure diastolic 72 mm Hg 025 Heart Rate 115 /min 03/25/2025 Height 69.75 in 03/25/2025 BMI 49.51 kg/m2 03/25/2025 Encounters Encounter Location Date Provider Diagnosis [facility] [address] [facility] [address] [place] [id number] 03/25/2025 Nicci Baker Acute URI J06.9 Assessments Encounter Date Diagnosis (ICD Code) Assessment Notes Treatment Notes Treatment Clinical Notes Section Notes 03/25/2025 Acute URI (ICD-10 - J06.9) CBC shows a virus. Will treat the symptoms. Plan Of Treatment Treatment Notes Assessment Notes Acute URI CBC shows a virus. W ill treat the symptoms. Next Appt Details Follow Up: prn, Reason: Progress Notes * Karo COLONDOB:2000 (24 yo F)Acc No.[id number]:03/25/2025 Progress Notes Patient: Karo BARRON Provider: MONA He :2000 A ge:24 Y S ex:Female Date:03/25/2025 Phone: Address:[address] [id number] Subjective: * Chief Complaints: * 1 . Sore throat. * HPI: E NT/respiratory: 24 year old female presents with c/o sore throat P t presents today with c/o sore throat and dry cough for almost 2 weeks. Pt sts that she had a CBC done at [facility] on Friday that only showed anemia. c/o cough P t sts that she has coughed so much her ribs hurt. * ROS: D ERMATOLOGY: no R regino. [...] drinks a month. * Medications: T aking 28-0.8 MG Tablet 1 tablet Orally Once a day , Taking Labetalol HCl 100 MG Tablet 1 tablet Orally Twice a day , Discontinued Cefdinir 300 MG Capsule 1 cap(s) Orally Two times a day , Medication List reviewed and reconciled with the patient * Allergies: N .K.D.A. Objective: * Vitals: W t: 342.6, Temp: 98.4, BP: 126/72, HR: 115, Nurse: TAISHA, Ht: 69.75, BMI:49.51. * Examination: G eneral Examination: General Appearance: N AD. H EENT: u nremarkable, tympanostomy tube in left ear. O ral cavity: m inimal erythema. N ramón: s upple, no lymphadenopathy. C hest: n ormal shape and expansion. H eart: R SR. L ungs: c lear to auscultation. Assessment: * Assessment: 1. Michele stearns URI - J06.9 (Primary) Plan: * Treatment: Value Reference Range s trep test Negative * Marcia Nash 04/11/2025 08 :03:44 AM EST > Notes: CBC shows a virus. Will treat the symptoms.?? * Procedure Codes: 8 7880 STREP A ASSAY W/OPTIC, Modifiers: QW * Follow Up: p rn * Images: Billing Information: * Visit Code: 69350 Office Visit, Est Pt., Level 3. * Procedure Codes: 99726 STREP A ASSAY W/OPTIC. Modifiers: QW * Electronic signature of MONA Jolley on 05/05/2025 at 01:41 PM EST Sign off status: Pending * Provider: MONA He Date: 05/25/2024 Generated for Shantanu wong/Alondra/Donnie on: 07/06/2024 01:41 PM EST History and Physical Notes * HPI (History of Present Illness) Category Sub-Category Detail Notes Category Not es ENT/respiratory sore throat Pt presents toda y with c/o sore throat and dry cough for almost 2 weeks. Pt sts that she had a CBC done at [facility] on Friday that only showed anemia cough Pt sts that she has coughed so much her ribs hurt Examination Category Sub-Category Detail Notes Category Not es General Examination HEENT: unremarkable , tympanostomy tube in left ear Heart: RSR Lungs: clear to auscultatio n General Appearance: NAD Neck: supple, no lymphaden opathy Oral cavity: minimal erythema Chest: normal shape and exp ansion
--- NOTE | 2025-05-05 13:30 | US_ITS ---
PROCEDURE: US OB BIOPHYSICAL PROFILE CLINICAL INDICATION: BPP COMPARISON: US US OB /MATERNAL DETAIL from 01/24/2025 US OB FOLLOW UP from 02/10/2025 US OB FOLLOW UP from 03/23/2025 US OB BIOPHYSICAL PROFILE from 04/13/2025 US OB BIOPHYSICAL PROFILE from 04/18/2025 US OB BIOPHYSICAL PROFILE from 04/21/2025 US OB BIOPHYSICAL PROFILE from 04/28/2025 US OB BIOPHYSICAL PROFILE from 04/30/2025 US OB BIOPHYSICAL PROFILE from 05/02/2025 FINDINGS: Transabdominal sonographic images of the uterus were obtained. From her established due date she is 34weeks 3days. The following parameters are obtained: Viable Fetus in the cephalic presentation with a posterior lateral placenta grade 2. The cervix measures 3.04 cm in length Measurements: heart Rate = 143bpm Amniotic fluid index: 13.14cm, MVP 6.10 cm Qualitative AFV:2 Breathing movements: 2 Gross Body Movements: 2 Tone: 2 Biophysical profile score: 8 No obvious anomalies evident.Kidneys, stomach, bladder, four-chamber heart, three-vessel cord appear normal. IMPRESSION: 1. Viable fetus in the cephalic presentation with a posterolateral placenta grade 2. 2. The fluid is within normal limits with an amniotic fluid index 13.14 cm, MVP 6.10 cm. 3. Biophysical profile 8/8 with good breathing movement and movement seen. 4. Limited anatomical scan appears normal. 5. There is mild unilateral renal pelvis dilation that is considered normal at this stage. Dictated by: Donnie Oliver MD 05/05/2025 16:53 Donnie Oliver MD in OV 05/05/2025 16:53
--- OUTSIDE RECORDS SUMMARY | 2025-05-05 13:41 | XMS_ITS | Clinical Summary ---
Author Organization [facility] Address [address] [id number] Care Team Providers Care [facility] Shift Lead Name Role Phone Nicci Baker Primary Care Provider [phone] Social History Tobacco Use Types Packs/Day Years [...] patient's age to complete this topic Insurance [id number] [place] [id number] [facility] PPO Member Subscriber Plan / Payer (Ef fective 2023-Present) Name:Karo Colon Relation to Subscriber:Spouse Name:FAVIAN COLON Date of :1998 (Home) Address: [address] [place], [place] [address] [address] Payer ID:[id number] (NAIC) Type:Not on file Address: [address] [place] [id number] Care Teams Veterinary [facility] Shift Lead Relationship Specialty Start Date End Date Nicci Baker PA [address] [facility] [id number] PCP - General Physician Product Responsibility Liaison 12/04/23
--- OUTSIDE RECORDS SUMMARY | 2025-05-05 13:42 | XMS_ITS | Patient Health Record ---
[facility] Address [address] [facility] [address] [place] [id number] Care Team Providers Care Chemist Organic Name Role Phone Samuel Nicci Primary Care Provider [phone] Allergies No Known Allergies Results Component Value [...] 100 - 400 Rapid Strep- Inhouse Reviewed date:04/11/2025 08:03:44 AM Interpretation:Negative Performing Lab: Notes/Report: Negative strep test Negative P-Arthritis Panel, [employer] Reviewed date:08/26/2024 02:10:10 PM Interpretation:CRP 0.81 Performing Lab: Notes/Report: Test performed by [employer] [facility] , [address], [place] [address] Phoenix Schwarz MD, Varnish Dipper CLIA: [id number] Rheumatoid Factor <10 <14.1 IU/mL C-Reactive Protein (CRP) 0.81 <0.50 mg/dL Antinuclear Antibodies (EVER) Screen, Reflex EVER 9 Panel Negative Negative This test is performed by Multiplex Bead Immunoassay methodology. Antinuclear Antibodies (EVER) Result Note SEE COMMENT For positive Autoantibodies, please refer to the interpretive chart here: [email or web address] CCP Antibodies <0.5 <0.5-3.0 U/mL Erythrocyte Sedimentation Rate (ESR), Automated Specimen received beyond stability.. Test cannot be performed. Acceptable stability from collection is [24 hours]. P-Comprehensive Metabolic Pa gene (CMP) Reviewed date:08/26/2024 02:10:10 PM Interpretation:Glu 101 Performing Lab: Notes/Report: Test performed by [facility] [address] [place] [address] , [address], [place] [address] Phoenix Schwarz MD, Varnish Dipper CLIA: [id number] Sodium 141 135-145 mmol/L Potassium 4.1 3.5-5.3 [...] 0.3 <0.2-1.2 mg/dL A/G Ratio 1.5 1.1-2.5 P-Lyme Disease (B. burgodorf irma), IgG/IgM, NAINA, Serum Reviewed date:08/26/2024 02:10:10 PM Interpretation:Negative Performing Lab: Notes/Report: Test performed by [facility] [address] [place] [address] , [address], [place] [address] Phoenix Schwarz MD, Varnish Dipper CLIA: [id number] B burgdorferi (Lyme Disease) IgG Negative Negative B burgdorferi (Lyme Disease) IgM Negative Negative CBC Venipuncture (in house) Reviewed date:08/19/2024 04:19:32 [...] - 38 platlet 274 100 - 400 Influenza Screen (in house) Reviewed date:08/19/2024 04:19:52 PM Interpretation: Performing Lab: Notes/Report: results Neg H-Iron Reviewed date:06/16/2024 09:14:56 AM Interpretation:44 Performing [...] Interpretation:8 Performing Lab: Notes/Report: Test performed by [facility] [address] [place] [address] , [address], [place] [address] Phoenix Schwarz MD, Varnish Dipper CLIA: [id number] Erythrocyte Sedimentation Rate (ESR), Automated 8 <26 mm/hr Reason For Referral No Information Medications Medication [...] Status Risk Notes Problem Gastroesophageal reflux disease (434089892) GERD (gastroesophageal reflux disease) (K21.9) Active confirmed Problem Hypertension (72389728) HTN (hypertension) (I10) Active confirmed Problem Hyperlipidemia (57335558) Hyperlipidemia (E78.5) Active confirmed Problem Vitamin D deficiency (40224918) Vitamin D deficiency (E55.9) Active confirmed Problem Paresthesia (56459277) Paresthesia (R20.2) Active confirmed Problem Mixed anxiety and depressive disorder (760175309) Depression with anxiety (F41.8) Active confirmed Problem Hearing loss (68994147) Hearing loss (H91.90) Active confirmed Problem Amenorrhea (21223534) Amenorrhea (N91.2) Active confirmed Problem Body mass index 40+ - severely obese (134873932) BMI 45.0-49.9, adult (Z68.42) Active confirmed Problem Migraine (69843714) Migraine wit hout status migrainosus, not intractable, unspecified migraine type (G43.909) Active confirmed Problem Anemia (279712245) Anemia, unspecified type (D64.9) Active confirmed Problem Morbid obesity (735527953) Obesity, morbid, BMI 40.0-49.9 (E66.01) Active confirmed Problem Insulin resistance (529237161) Insulin resistance (E88.81) Active confirmed Problem Chronic serous otitis media (48990913) Left chronic serous otitis media (H65.22) Active confirmed Problem Refractory migraine without aura (941558482) Intractable migraine without aura and without status migrainosus (G43.019) Active confirmed Problem Anxiety depression (294549865) Anxiety with depression (F41.8) Active confirmed Problem Major depression, single episode (41141314) Major depressive disorder with current active episode, unspecified depression episode severity, unspecified whether recurrent (F32.9) Active confirmed Vital Signs Heart Rate 115 /min 03/25/2025 Blood pressure diastolic 72 mm Hg 03/25/2025 Height 69.75 in 03/25/2025 Blood pressure systolic 126 mm Hg 03/25/2025 Weight 342.6 lbs 03/25/2025 BMI 49.51 kg/m2 03/25/2025 Encounters Encounter Location Date Provider Diagnosis [facility] 121 [facility] [address] [place] [id number] 06/23/2024 Nicci Baker Vitamin B12 deficien cy E53.8 [facility] 1209 [facility] [address] [place] [id number] 07/01/2024 Nicci Baker Acute URI J06.9 [facility] [address] [place] [id number] 08/19/2024 Nicciconstance Baker Polyarthralgia M25.5 0 and Obesity, morbid, BMI 40.0-49.9 E66.01 [facility] [address] [place], [place] [id number] 08/24/2024 Nicci Crowdy [facility] [address] [place], [place] [id number] 11/18/2024 Nicci Crowdy History of mastoidit is Z86.69 [facility] [address] [place], [place] [id number] 03/25/2025 Nicci Crowdy Acute URI J06.9 [facility] [address] [place], [place] [id number] 05/26/2024 Nicci Crowdy History of mastoidit is Z86.69 [facility] [address] [place], [place] [id number] 06/02/2024 Nicci Crowdy [facility] [address] [place], [place] [id number] 06/11/2024 Nicci Crowdy HTN (hypertension) I 10 ; Iron deficiency E61.1 ; Vitamin D deficiency E55.9 ; Diabetes mellitus screening Z13.1 ; Anemia, unspecified type D64.9 ; Thyroid disorder screen Z13.29 ; Hyperlipidemia E78.5 and Vitamin B12 deficiency E53.8 [facility] [address] [place], [place] [id number] 06/16/2024 Nicci Crowdy [facility] [address] [place], [place] [id number] 06/16/2024 Nicci Crowdy [facility] [address] [place] [id number] 07/05/2024 Nicci Crowdy [facility] [address] [place], [place] [id number] 08/26/2024 Nicci Crowdy [facility] [address] [place], [place] [id number] 10/01/2024 Nicci Crowdy [facility] [address] [place], [place] [id number] 10/06/2024 Nicci Crowdy Assessments Encounter Date Diagnosis [...] in to see ENT next week at [facility]. She cannot see Dr. Fabian for 3 [...] DEEJAY [employer] CR[employer] SHIELD [address] [place] [address] [id number] 1EKaro Winter Self - patient is the insured Medications Administered Medication Instructions Date of Administration Dosage Notes B-12 06/23/2024 1 mL Medical (General) History Medical History History ICD Code Hypertension Insulin Resistance COVID 19- 03/23/2021 chronic OM left eAR left mastoiditis Surgical History Surgery Date(Month/Year) [place] Teeth Extractions 07/2019 01/15/2022 cholecystectomy 03/04/2022 C- Section 05/26/2023 left myringotomy tube placement 11/18/2023 Hospitalization History Reason Date(Month/Year) 05/2023 01/2022
[2025-05-05 15:50] LABS: Hematocrit 33.1 % (37.0-47.0); Hemoglobin 10.5 g/dL (12.2-16.2); Immature Granulocytes % 0.1 %; Mean Corpuscular HGB Conc 31.7 g/dL (31.8-35.4); Mean Corpuscular Hemoglobin 25.0 pg (27.0-31.2); Mean Corpuscular Volume 78.8 fl (81-99); Nucleated Red Blood Cells % 0 %; Platelet Count 228 K/mm3 (142-424); Red Blood Count 4.20 M/mm3 (4.20-5.40); Red Cell Distribution Width-SD 43.1 fL; White Blood Count 6.9 K/mm3 (4.8-10.8)
[2025-05-05 16:07] LABS: Alanine Aminotransferase 12 U/L (12-78); Albumin Level 3.6 g/dl (3.5-5.0); Albumin/Globulin Ratio 1.2 (1.1-1.8); Aspartate Amino Transferase 19 U/L (14-36); Bilirubin,Total 0.5 mg/dl (0.2-1.3); Blood Urea Nitrogen 4 mg/dl (7-17); Carbon Dioxide 20 mmol/L (22.0-30.0); Creatinine,Serum 0.60 mg/dl (0.52-1.04); Estimated Glomerular Filt Rate 123 ml/min (>60); GFR (African American) 149 ML/MIN (>60); Globulin 3.1 g/dL (1.3-3.2); Glucose 95 mg/dl (74-100); Total Protein,Serum 6.7 g/dl (6.3-8.2); Uric Acid 3.7 mg/dl (2.5-6.2)
[2025-05-05 16:17] LABS: Alkaline Phosphatase 78 U/L (38-126); Anion Gap 12.2 mEq/L (5-15); Calcium 8.7 mg/dl (8.4-10.2); Chloride 109 mmol/L (98-107); Potassium 4.2 mmoL/L (3.5-5.1); Sodium 137 mmol/L (136-145)
[2025-05-05 16:37] LABS: Activated Partial Thrombo Time 26.4 seconds (22.8-30.6); Fibrinogen 410 mg/dL (229.9-363.5); INR 0.96 (0.9-1.1); Prothrombin Time 10.7 seconds (10.1-12.5)
== END 2025-05-05 23:59 | disposition home or self-care (01) ==
PROVIDERS: PCP Physician Assistant; Visit Provider Obstetrics & Gynecology
DX: O10.913 Unspecified pre-existing hypertension complicating pregnancy, third trimester (principal); O99.213 Obesity complicating pregnancy, third trimester; O09.293 Supervision of pregnancy with other poor reproductive or obstetric history, third trimester; E66.9 Obesity, unspecified; Z3A.34 34 weeks gestation of pregnancy
CPT/HCPCS: 36415; 76819; 80053; 84550; 85025; 85384; 85610; 85730

== ENCOUNTER 2025-05-06 11:56 | Outpatient (CLI) | payer BC, SELFPAY ==
--- OUTSIDE RECORDS SUMMARY | 2025-05-06 11:58 | XMS_ITS | Clinical Summary ---
Author Organization [facility] Address [address] [address] Care Team Providers Care Assembler Liquid Center Name Role Phone Nicci Baker Primary Care Provider [phone] Social History Tobacco Use Types Packs/Day Years [...] patient's age to complete this topic Insurance [id number] [id number] [facility] PPO Member Subscriber Plan / Payer (Ef fective 2023-Present) Name:Karo Colon Relation to Subscriber:Spouse Name:FAVIAN COLON Date of :1998 (Home) Address: [address] [place], [place] [address] [address] Payer ID:[id number] (NAIC) Type:Not on file Address: [address] [place] [id number] Care Teams Assembler Liquid Center Relationship Specialty Start Date End Date Nicci Baker PA [address] ANN[facility]MARIESOUTHEASTERN ARI[facility] HE[facility] SERVICESPAIGE [id number] PCP - General Physician Distribution Lineman 12/04/23
--- OUTSIDE RECORDS SUMMARY | 2025-05-06 11:58 | XMS_ITS | Clinical Summary ---
Author Organization [facility] Address [address] [place] [address] Phone Care Team Providers Care Digital Media Producer Name Role Phone Jasmeet SANTIAGO, Bhavana Maynard Unavailable Conditions or Problems Problem Name Problem Code Onset Date Status Entry Date Provider Comment Standard Description Annotate Ear pain, left 1574427834 (SNOMED CT) 06/01 Active 06/01 Cesar Argueta MD Otalgia of left ear Acute mastoiditis, left 964169353 (SNOMED CT) 06/01 Active 06/01 Cesar Argueta MD Acute mastoiditis Screening for HIV 101017289 (SNOMED CT) 12/17 Active 12/17 Gorge Handy Procedure carried out on subject Acute recurrent suppurative otitis media, left 132070637 (SNOMED CT) 12/04 Active 12/04 Sasha Malik Recurrent acute suppurative otitis media Acute recurrent serous otitis media, left 560173219 (SNOMED CT) 12/03 Active 12/03 Sasha Malik Acute non-suppurat gokul serous otitis media Serratia marcescens infection B96.89 (ICD-10-CM) 12/03 Active 12/03 Cesar Argueta MD Other specified bacterial agents as the cause of diseases classified elsewhere Facial swelling 103677825 (SNOMED CT) 12/03 Active 12/03 Aida Argueta Facial swelling Recurrent otitis media (ROM) 3606155622086 104 (SNOMED CT) 12/03 Inactive 12/03 Aida Argueta Otitis media of right ear Chronic mastoiditis, left 98159627 (SNOMED CT) 12/03 Active 12/03 Lydia Medrano Chronic mastoiditis Medications Medication Instructions Start Date Stop Date Generic Name NDC Provider ceftriaxone recon kikanoemi Rocephin 2gm IV Q 24hrs/ OPAT 06/01 ceftriaxone recon katy espana recon solnoemi Rocephin 2gm IV Q 24hrs INPAT 06/01 ceftriaxone recon katy Gonzales METRONIDAZOLE 500 MG TABS Take 1 tablet by mouth three times a day 06/01 metronidazole 25830510215 Cesar Argueta MD WEGOVY 0.5 MG/0.5ML SOAJ 06/01 semaglutide (weight loss) 62519366889 Lynn Jarvis HYDROCHLOROTHIAZIDE 12.5 MG TABS 06/01 hydrochlorothiazide 39336720560 [facility] VENLAFAXINE HCL 37.5 MG TABS 06/01 venlafaxine 59445195505 [facility] PRISTIQ 100 MG ST33U-DEX once a day desvenlafaxine succinate 76381045851 [facility] ZOSYN 4-0.5 GM/100ML SOLN Q 8 hrs/OPAT 01/26 piperacillin-tazoba ctam-dextrs 30356829573 Bhavana Alamo RN WEGOVY 0.5 MG/0.5ML SOAJ 06/01 semaglutide (weight loss) 01629318833 Farrah Gunjan VENLAFAXINE HCL 37.5 MG TABS 06/01 venlafaxine 27774741679 Farrah Gunjan HYDROCHLOROTHIAZIDE 12.5 MG TABS 04/26 hydrochlorothiazide 27946199750 Farrah Gunjan Medications Administered No information available. [...] Procedures Code Procedure Name Date Entry Date CPT-75184 CMP [id number] CBC with Differential 2024 CPT-63266 C- reactive protein CPT-57875 Sedimentation Rate (ESR) 202 09/17/27 CPT-10980 CMP [id number] CBC with Differential 2024 CPT-77025 C- reactive protein CPT-08542 Sedimentation Rate (ESR) 09/16/20 CPT-sl STAT Labs [id number] CBC with Differential 2024 CPT-47629 CMP CPT-55020 C- reactive protein CPT-39730 Sedimentation Rate (ESR) 09/17/15 CPT- stat weekly Stat Weekly Labs CPT-54771 X-Ray, Chest (PICC Placement only) 06/02 CPT-19186 CMP [id number],[id number] CBC with Differential 2024 CPT-66101 C- reactive protein CPT-61059 Sedimentation Rate (ESR) 09/16/13 CPT-sl STAT Labs CPT-sl STAT Labs CPT-sl STAT Labs CPT-24181 CMP [id number],[id number] CBC with Differential 2023 CPT-32102 C- reactive protein CPT-83723 Sedimentation Rate (ESR) 08/24/14 CPT-sl STAT Labs CPT-sl STAT Labs CPT-85056 CMP [id number],[id number] CBC with Differential 2023 CPT-38238 C- reactive protein CPT-97044 Sedimentation Rate (ESR) 202 08/23/24 CPT- stat weekly Stat Weekly Labs CPT-sl STAT Labs CPT-sl STAT Labs CPT-00116 CMP [id number],[id number] CBC with Differential 2023 CPT-55700 C- reactive protein CPT-16454 Sedimentation Rate (ESR) 202 08/23/17 Vital Signs [...]
[2025-05-06 12:10] VITALS: BMI 46.1
[2025-05-06 12:50] VITALS: BP 118/85; PULSE 100; RESP 17; TEMP 36.8; O2SAT 98; BMI 46.1
== END 2025-05-06 14:24 | disposition home or self-care (01) ==
LOC: OBOUT 11:56 → OB 11:57
PROVIDERS: PCP Physician Assistant; Visit Provider Obstetrics & Gynecology
DX: O99.891 Other specified diseases and conditions complicating pregnancy (principal); R03.0 Elevated blood-pressure reading, without diagnosis of hypertension; Z3A.34 34 weeks gestation of pregnancy
CPT/HCPCS: 82570; 84156; 99212

== ENCOUNTER 2025-05-09 15:09 | Outpatient (CLI) | payer BC, SELFPAY ==
--- OUTSIDE RECORDS SUMMARY | 2025-05-09 15:11 | XMS_ITS | Clinical Summary ---
Author Organization [facility] Address [address] [id number] Care Team Providers Care Roll Coating Machine Operator Name Role Phone Nicci Baker Primary Care Provider [phone] Social History Tobacco Use Types Packs/Day Years [...] patient's age to complete this topic Insurance [id number] BEDOYA [id number] [facility] PPO Member Subscriber Plan / Payer (Ef fective 2023-Present) Name:Karo Colon Relation to Subscriber:Spouse Name:FAVIAN COLON Date of :1998 (Home) Address: [address] [place], [place] [address] [address] Payer ID:[id number] (NAIC) Type:Not on file Address: [address] [place] [id number] Care Teams Roll Coating Machine Operator Relationship Specialty Start Date End Date Nicci Baker PA [address] [place] [id number] PCP - General Physician Janitor Supervisor 12/04/23
--- OUTSIDE RECORDS SUMMARY | 2025-05-09 15:11 | XMS_ITS | Clinical Summary ---
Author Organization [facility] Address [address] [place] [address] Phone Care Team Providers Care Board Certified Music Therapist Name Role Phone Jasmeet SANTIAGO, Bhavana Maynard Unavailable Conditions or Problems Problem Name Problem Code Onset Date Status Entry Date Provider Comment Standard Description Annotate Ear pain, left 0826555170 (SNOMED CT) 06/01 Active 06/01 Cesar Argueta MD Otalgia of left ear Acute mastoiditis, left 861604445 (SNOMED CT) 06/01 Active 06/01 Cesar Argueta MD Acute mastoiditis Screening for HIV 695653748 (SNOMED CT) 12/17 Active 12/17 Gorge Handy Procedure carried out on subject Acute recurrent suppurative otitis media, left 801785576 (SNOMED CT) 12/04 Active 12/04 Sasha Malik Recurrent acute suppurative otitis media Acute recurrent serous otitis media, left 975929994 (SNOMED CT) 12/03 Active 12/03 Sasha Malik Acute non-suppurat gokul serous otitis media Serratia marcescens infection B96.89 (ICD-10-CM) 12/03 Active 12/03 Cesar Argueta MD Other specified bacterial agents as the cause of diseases classified elsewhere Facial swelling 708759574 (SNOMED CT) 12/03 Active 12/03 Aida Argueta Facial swelling Recurrent otitis media (ROM) 1874805152553 104 (SNOMED CT) 12/03 Inactive 12/03 Aida Argueta Otitis media of right ear Chronic mastoiditis, left 90651198 (SNOMED CT) 12/03 Active 12/03 Lydia Medrano Chronic mastoiditis Medications Medication Instructions Start Date Stop Date Generic Name NDC Provider ceftriaxone recon kikanoemi Rocephin 2gm IV Q 24hrs/ OPAT 06/01 ceftriaxone recon katy espana recon solnoemi Rocephin 2gm IV Q 24hrs INPAT 06/01 ceftriaxone recon katy Gonzales METRONIDAZOLE 500 MG TABS Take 1 tablet by mouth three times a day 06/01 metronidazole 99509782508 Cesar Argueta MD WEGOVY 0.5 MG/0.5ML SOAJ 06/01 semaglutide (weight loss) 06464953884 Lynn Jarvis HYDROCHLOROTHIAZIDE 12.5 MG TABS 06/01 hydrochlorothiazide 80117594311 [facility] VENLAFAXINE HCL 37.5 MG TABS 06/01 venlafaxine 69616323488 [facility] PRISTIQ 100 MG KH09E-OJR once a day desvenlafaxine succinate 96720525529 [facility] ZOSYN 4-0.5 GM/100ML SOLN Q 8 hrs/OPAT 01/26 piperacillin-tazoba ctam-dextrs 90463727853 Bhavana Alamo RN WEGOVY 0.5 MG/0.5ML SOAJ 06/01 semaglutide (weight loss) 14502819961 Farrah Gunjan VENLAFAXINE HCL 37.5 MG TABS 06/01 venlafaxine 98460934815 Farrah Gunjan HYDROCHLOROTHIAZIDE 12.5 MG TABS 04/26 hydrochlorothiazide 76987769627 Farrah Gunjan Medications Administered No information available. [...] Procedures Code Procedure Name Date Entry Date CPT-13773 CMP [id number] CBC with Differential 2024 CPT-66086 C- reactive protein CPT-94171 Sedimentation Rate (ESR) 202 09/17/27 CPT-62921 CMP [id number],[id number] CBC with Differential 2024 CPT-93459 C- reactive protein CPT-27896 Sedimentation Rate (ESR) 09/16/20 CPT-sl STAT Labs [id number],[id number] CBC with Differential 2024 CPT-08952 CMP CPT-18573 C- reactive protein CPT-30303 Sedimentation Rate (ESR) 09/17/15 CPT- stat weekly Stat Weekly Labs CPT-40852 X-Ray, Chest (PICC Placement only) 06/02 CPT-75538 CMP R4013x,[id number] CBC with Differential 2024 CPT-22042 C- reactive protein CPT-57446 Sedimentation Rate (ESR) 09/16/13 CPT-sl STAT Labs CPT-sl STAT Labs CPT-sl STAT Labs CPT-64909 CMP [id number],[id number] CBC with Differential 2023 CPT-52243 C- reactive protein CPT-94410 Sedimentation Rate (ESR) 08/24/14 CPT-sl STAT Labs CPT-sl STAT Labs CPT-86181 CMP [id number],[id number] CBC with Differential 2023 CPT-08124 C- reactive protein CPT-76508 Sedimentation Rate (ESR) 202 08/23/24 CPT- stat weekly Stat Weekly Labs CPT-sl STAT Labs CPT-sl STAT Labs CPT-79019 CMP L4419s,[id number] CBC with Differential 2023 CPT-81724 C- reactive protein CPT-20203 Sedimentation Rate (ESR) 202 08/23/17 Vital Signs [...]
[2025-05-09 15:15] VITALS: BMI 46.0
[2025-05-09 15:39] VITALS: BP 128/77; PULSE 94; RESP 18; TEMP 36.9; BMI 46.2
--- NOTE | 2025-05-09 16:27 | US_ITS ---
PROCEDURE INFORMATION: Exam: US Biophysical Profile Without Non-Stress Test Exam date and time: 05/09/2025 5:36 PM Age: 24 years old Clinical indication: Other: Non- reactive nst; TECHNIQUE: Imaging protocol: US biophysical profile without non-stress testing. COMPARISON: US OB BIOPHYSICAL PROFILE 05/05/2025 1:17 PM FINDINGS: Gestation: There is a single live intrauterine gestation in cephalic presentation. heart rate: 133 bpm Placenta: The placenta is posterior and lateral and grade 1-2. Amniotic fluid index: JONG is 10.86 cm. BIOPHYSICAL PROFILE: breathing (BPP): 2 /2 gross body movement (BPP): 2 /2 tone (BPP): 2 /2 Amniotic fluid (BPP): 2 /2 Biophysical profile score (BPP): 8 /8 MATERNAL ANATOMY: Cervix: Cervical length measures 3.72 cm. The cervix appears closed. Other findings: Dedicated anatomic survey was not performed. IMPRESSION: 1. Single live intrauterine gestation in cephalic presentation. 2. BPP = 8/8. 3. Posterior lateral grade 1-2 placenta. 4. The cervix measures 3.2 cm and appears closed. 5. JONG measures 10.86 cm.
== END 2025-05-09 18:08 | disposition home or self-care (01) ==
LOC: OBOUT 15:09 → OB 15:12
PROVIDERS: PCP Physician Assistant; Visit Provider Obstetrics & Gynecology
DX: O36.8130 Decreased fetal movements, third trimester, not applicable or unspecified (principal); O28.8 Other abnormal findings on antenatal screening of mother; O99.891 Other specified diseases and conditions complicating pregnancy; H53.8 Other visual disturbances; H43.399 Other vitreous opacities, unspecified eye; R51.9 Headache, unspecified; Z3A.35 35 weeks gestation of pregnancy
CPT/HCPCS: 76819; 99213

== ENCOUNTER 2025-05-13 10:49 | Outpatient (CLI) | payer BC, SELFPAY ==
--- OUTSIDE RECORDS SUMMARY | 2024-03-17 08:15 | XMS_ITS ---
Author Organization [facility] Address [address] [place] [phone] Care Team Providers Care Chemical Milling Processor Name Role Phone Nicci Baker Primary Care [...] 03/17/2024 Encounters Encounter Location Date Provider Diagnosis [facility] [address] [facility] [address] [place] [phone] 03/17/2024 Nicci Samuel Acute URI J06.9 Assessments [...] Notes * DUNIA ShoaibabiliokizzyDOB:2000 (24 yo F)Acc No.[id number]:03/17/2024 Progress Notes Patient: Karo BARRON Provider: MONA He :2000 A ge:23 Y S ex:Female Date:03/17/2024 Phone: Address:[address] [place], [place] [address] Subjective: * Chief Complaints: * 1 . [...] Procedure Codes: 3 6416 CAPILLARY BLOOD DRAW, 17747 CBC WITH AUTO DIFF * Follow Up: p rn * Images: Billing Information: * Visit Code: 74129 Office Visit, Est Pt., Level 3. * Procedure Codes: 42508 CAPILLARY BLOOD DRAW. 59827 CBC WITH AUTO DIFF. * Electronic signature of MONA Jolley on 05/13/2025 at 10:51 AM EST Sign off status: Pending * Provider: MONA He Date: 1 Generated for Printi ng/Faxing/eTransmitting on: 07/14/2024 10:51 AM EST History and Physical Notes * [...]
--- OUTSIDE RECORDS SUMMARY | 2024-06-23 08:00 | XMS_ITS ---
Author Organization [facility] Address [address] [facility] [address] [place] [id number] Care Team Providers Care Transportation Museum Helper Name Role Phone Nicci Baker Primary Care [...] Encounter Location Date Provider Diagnosis [facility] [address] [place] [id number] 06/23/2024 Nicci Baker Vitamin B12 deficien cy E53.8 Assessments Encounter Date Diagnosis (ICD Code) Assessment Notes Treatment Notes Treatment Clinical Notes Section Notes 06/23/2024 Vitamin B12 deficiency (ICD-10 - E53.8) Plan Of Treatment No Information Medications Administered Medication Instructions Date of Administration Dosage Notes B-12 06/23/2024 1 mL Progress Notes * Robbi COLONB:2000 (24 yo F)Acc No.[id number]:06/23/2024 Patient: Karo BARRON Provider: MONA He :2000 A ge:23 Y S ex:Female Date:06/23/2024 Phone: Address:[address] [place] [address] [place], [id number] Subjective: * Chief Complaints: * 1 . [...] deficiency) * Procedure Codes: J 3420 B-12, 47711 ADMINISTRATION OF INJECTION * Images: Billing Information: * Visit Code: * Procedure Codes: J3420 B-12. 34938 ADMINISTRATION OF INJECTION. * Electronic signature of MONA Jolley on 05/13/2025 at 10:52 AM EST Sign off status: Pending * Provider: MONA He Date: 0 06/23/2024 Generated for Shantanu wong/Alondra/eTsandysmitting on: 1 07/14/2024 10:52 AM EST
--- OUTSIDE RECORDS SUMMARY | 2024-07-01 09:20 | XMS_ITS ---
Author Organization [facility] Address [address] [place] [phone] Care Team Providers Care Printing Mechanist Name Role Phone Nicci Baker Primary Care [...] us; Duration: 28 days Active Vital Signs Blood pressure systolic 124 mm Hg 07/01/19 25 Blood pressure diastolic 80 mm Hg 025 Heart Rate 110 /min 07/01/2024 Height 69.75 in 07/01/2024 Weight 328.2 lbs 07/01/2024 BMI 47.42 kg/m2 07/01/2024 Encounters Encounter Location Date Provider Diagnosis [facility] [address] [place] [phone] 07/01/2024 Nicci Baker Acute URI J06.9 Assessments [...] Notes * DUNIA, KaroDOB:2000 (24 yo F)Acc No.[id number]:07/01/2024 Progress Notes Patient: Karo BARRON Provider: MONA He :2000 A ge:23 Y S ex:Female Date:07/01/2024 Phone: Address:[address] [place], [place] [address], [place] Subjective: * Chief Complaints: * 1 . [...] * Procedure Codes: 9 4760 [place], [address] STREP A ASSAY W/OPTIC, Modifiers: QW , 24606 CAPILLARY BLOOD DRAW, 70424 CBC WITH AUTO DIFF, 3074F SYST BP LT 130 MM HG, 3079F DIAST BP 80-89 MM HG * Follow Up: p rn * Images: Billing Information: * Visit Code: 77066 Office Visit, Est Pt., Level 3. * Procedure Codes: [address] [place]. [address] STREP A ASSAY W/OPTIC. Modifiers: QW 62033 CAPILLARY BLOOD DRAW. 72591 CBC WITH AUTO DIFF. 3074F SYST BP LT 130 MM HG. 3079F DIAST BP 80-89 MM HG. * Electronic signature of MONA Jolley on 05/13/2025 at 10:52 AM EST Sign off status: Pending * Provider: MONA He Date: 0 07/01/2024 Generated for Shantanu wong/Alondra/Donnie on: 1 07/14/2024 10:52 AM EST History and Physical Notes * [...]
--- OUTSIDE RECORDS SUMMARY | 2024-08-19 10:15 | XMS_ITS ---
Author Organization [facility] Address [address] [facility] [address] [place] [id number] Care Team Providers Care Research Investigator Name Role Phone Iraj Bakera Primary Care Provider [phone] Allergies No Known Allergies Results Component [...] Interpretation:Negative Performing Lab: Notes/Report: Test performed by [employer] [facility] [employer], [address], [place] [address] Phoenix Schwarz MD, Plate Shear Operator CLIA: [id number] B burgdorferi (Lyme Disease) IgG Negative Negative B burgdorferi (Lyme Disease) IgM Negative Negative P-Comprehensive Metabolic Pa gene (CMP) Reviewed date:08/26/2024 02:10:10 PM Interpretation:Glu 101 Performing Lab: Notes/Report: Test performed by [employer] [facility] , [address], [place] [address] Phoenix Schwarz MD, Plate Shear Operator CLIA: [id number] Sodium 141 135-145 mmol/L Potassium 4.1 3.5-5.3 [...] mg/dL A/G Ratio 1.5 1.1-2.5 [facility]-Arthritis Panel, [facility] Reviewed date:08/26/2024 02:10:10 PM Interpretation:CRP 0.81 Performing Lab: Notes/Report: Test performed by [employer] [address] [facility] , [address], [place] [address] Phoenix Schwarz MD, Plate Shear Operator CLIA: [id number] Rheumatoid Factor <10 <14.1 IU/mL C-Reactive Protein (CRP) 0.81 <0.50 mg/dL Antinuclear Antibodies (EVER) Screen, Reflex EVER 9 Panel Negative Negative This test is performed by Multiplex Bead Immunoassay methodology. Antinuclear Antibodies (EVER) Result Note SEE COMMENT For positive Autoantibodies, please refer to the interpretive chart here: [email or web address] p-[email or web address]/uploads/[email or web address] pretive-Chart.[email or web address] CCP Antibodies <0.5 <0.5-3.0 U/mL [...] W/U Status Risk Notes Problem Morbid obesity (725080674) Obesity, morbid, BMI 40.0-49.9 (E66.01) Active confirmed Vital Signs Blood pressure systolic 130 mm Hg 08/20/19 25 Blood pressure diastolic 80 mm Hg 025 Heart Rate 100 /min 08/19/2024 Height 69.75 in 08/19/2024 Weight 335 lbs 08/19/2024 BMI 48.41 kg/m2 08/19/2024 Encounters Encounter Location Date Provider Diagnosis [facility] [address] [facility] [address] [place] [address], [place] [id number] 08/19/2024 Nicci Baker Polyarthralgia M25.5 0 and [...] Notes * Karo COLONDOB:2000 (24 yo F)Acc No.[id number]:08/19/2024 Progress Notes Patient: Karo BARRON Provider: MONA He :2000 A ge:23 Y S ex:Female Date:08/19/2024 Phone: Address:[address] [place], [place] [address]Adolfo [id number] Subjective: * Chief Complaints: * 1 . [...] Flu Test- Nasal Swab, Modifiers: QW , 66526 CBC WITH AUTO DIFF, 11880 VENIPUNCT, ROUTINE*, 3075F SYST BP GE 130 - 139MM HG, 3079F DIAST BP 80-89 MM HG * Follow Up: v ia phone to report test results * Images: Billing Information: * Visit Code: 15778 Office Visit, Est Pt., Level 3. * Procedure Codes: 32705 Flu Test- Nasal Swab. Modifiers: QW 95448 CBC WITH AUTO DIFF. 37847 VENIPUNCT, ROUTINE*. 3075F SYST BP GE 130 - 139MM HG. 3079F DIAST BP 80-89 MM HG. * Electronic signature of MONA Jolley on 05/13/2025 at 10:52 AM EST Sign off status: Pending * Provider: MONA He Date: 0 08/19/2024 Generated for Shantanu wong/Alondra/Donnie on: 1 07/14/2024 [...]
--- OUTSIDE RECORDS SUMMARY | 2024-08-24 03:55 | XMS_ITS ---
Author Organization [facility] Address [address] [facility] [address] [place] [phone] Care Team Providers Care Attendant Coin Operated Laundry Name Role Phone Nicci Baker Primary Care Provider REASON FOR VISIT Lab Draw Encounters Encounter Location Date Provider Diagnosis [facility] [address] [place] [id number] 08/24/2024 Nicci Baker Plan Of Treatment No Information Progress Notes * Karo COLONDOB:2000 (24 yo F)Acc No.[id number]:08/24/2024 Patient: Shoaib BARRONssica Provider: MONA He :2000 A ge:23 Y S ex:Female Date:08/24/2024 Phone: Address:[place] [facility] Subjective: * Chief Complaints: * 1 . Lab Draw. * Medical History: Objective: * Vitals: Assessment: Plan: * Treatment: * Images: Billing Information: * Visit Code: * Procedure Codes: * Electronic signature of MONA Jolley on 05/13/2025 at 10:52 AM EST Sign off status: Pending * Provider: MONA He Date: 0 08/24/2024 Generated for Shantanu wong/Alondra/eTransmitting on: 1 07/14/2024 10:52 AM EST
--- OUTSIDE RECORDS SUMMARY | 2024-11-18 11:00 | XMS_ITS ---
Author Organization Ashley Address 1210 [facility] [address] [place] [id number] Care Team Providers Care Academic Affairs Vice President Name Role Phone Nicci Baker Primary Care [...] Encounter Location Date Provider Diagnosis [facility] [address] [place] [id number] 11/18/2024 Nicci Baker History of mastoidit is Z86.69 Assessments Encounter Date Diagnosis (ICD Code) Assessment Notes Treatment Notes Treatment Clinical Notes Section Notes 11/18/2024 History of mastoiditis (ICD-10 - Z86.69) Patient is going to try to get in to see ENT next week at [facility]. She cannot see Dr. Fabian for 3 weeks. Plan Of Treatment Medication Medication Name Sig Start Date Stop Date Notes Cefdinir 300 MG 1 cap(s) Orally Two times a day; Duration: 10 days 11/18/2024 Treatment Notes Assessment Notes History of mastoiditis Patient is going to try to get in to see ENT next week at [facility]. She cannot see Dr. Fabian for 3 weeks. Next Appt Details Follow Up: with ENT, Reason: Progress Notes * Karo COLONDOB:2000 (24 yo F)Acc No.[id number]:11/18/2024 Progress Notes Patient: Karo BARRON Provider: MONA He :2000 A ge:23 Y S ex:Female Date:11/18/2024 Phone: Address:[address] [place], [place] [address]Ad[place], [id number] Subjective: * Chief Complaints: * 1 . [...] < 90MM HG * Follow Up: w [facility] ENT * Images: Billing Information: * Visit Code: 79052 Office Visit, Est Pt., Level 3. * [...] 11/18/2024 Generated for Shantanu wong/Alondra/Richarditting on: 1 07/14/2024 10:52 AM EST History [...]
--- OUTSIDE RECORDS SUMMARY | 2025-03-17 08:15 | XMS_ITS ---
Author Organization [facility] Address [address] [facility] [address] [place] [id number] Care Team Providers Care Production Associate Name Role Phone Nicci Baker Primary Care Provider [phone] Allergies No Known Allergies REASON FOR VISIT Sore Throat and Dry Cough Encounters Encounter Location Date Provider Diagnosis [place] [address] [place] [id number] 03/17/2025 Nicci Baker Plan Of Treatment No Information Progress Notes * ISAIAH TierakizzyDOB:2000 (24 yo F)Acc No.[id number]:03/17/2025 Progress Notes Patient: Karo BARRON Provider: MONA He :2000 A ge:24 Y S ex:Female Date:03/17/2025 Phone: Address:[place] Subjective: * Chief Complaints: * 1 . [...] He Date: Generated for Shantanu wong/Alondra/Donnie on: 07/14/2024 10:51 AM EST
--- OUTSIDE RECORDS SUMMARY | 2025-03-25 05:15 | XMS_ITS ---
Author Organization [facility] Address [address] [facility] [address] [place] [id number] Care Team Providers Care Beef Boner Name Role Phone Nicci Baker Primary Care [...] Orally Twice a day Active Vital Signs Blood pressure systolic 126 mm Hg 03/25/20 25 Blood pressure diastolic 72 mm Hg 025 Heart Rate 115 /min 03/25/2025 Height 69.75 in 03/25/2025 Weight 342.6 lbs 03/25/2025 BMI 49.51 kg/m2 03/25/2025 Encounters Encounter Location Date Provider Diagnosis [facility] [address] [facility] [address] [place] [id number] 03/25/2025 Nicci Baker Acute URI J06.9 Assessments [...] Notes * Karo COLONDOB:2000 (24 yo F)Acc No.[id number]:03/25/2025 Progress Notes Patient: Karo BARRON Provider: MONA He :2000 A ge:24 Y S ex:Female Date:03/25/2025 Phone: Address:[address] [id number] Subjective: * Chief Complaints: * 1 . Sore throat. * HPI: E NT/respiratory: 24 year old female presents with c/o sore throat P t presents today with c/o sore throat and dry cough for almost 2 weeks. Pt sts that she had a CBC done at [facility] on Friday that only showed anemia. c/o [...] * Images: Billing Information: * Visit Code: 09134 Office Visit, Est Pt., Level 3. * Procedure Codes: 67195 STREP A ASSAY W/OPTIC. Modifiers: QW * Electronic signature of MONA Jolley on 05/13/2025 at 10:51 AM EST Sign off status: Pending * Provider: MONA He Date: 05/25/2024 Generated for Shantanu wong/Alondra/Richarditting on: 07/14/2024 10:51 AM EST History and Physical Notes * HPI (History of Present Illness) Category Sub-Category Detail Notes Category Not es ENT/respiratory sore throat Pt presents toda y with c/o sore throat and dry cough for almost 2 weeks. Pt sts that she had a CBC done at [facility] on Friday that only showed anemia cough [...]
--- OUTSIDE RECORDS SUMMARY | 2025-05-13 10:51 | XMS_ITS | Clinical Summary ---
Author Organization [facility] Address [address] [place] [address] Phone Care Team Providers Care Impact Retail Service Merchandiser Name Role Phone Jasmeet SANTIAGO, Bhavana Maynard Unavailable Conditions or Problems Problem Name Problem Code Onset Date Status Entry Date Provider Comment Standard Description Annotate Ear pain, left 6174565226 (SNOMED CT) 06/01 Active 06/01 Cesar Argueta MD Otalgia of left ear Acute mastoiditis, left 993303753 (SNOMED CT) 06/01 Active 06/01 Cesar Argueta MD Acute mastoiditis Screening for HIV 439353158 (SNOMED CT) 12/17 Active 12/17 Gorge Handy Procedure carried out on subject Acute recurrent suppurative otitis media, left 865117438 (SNOMED CT) 12/04 Active 12/04 Sasha Malik Recurrent acute suppurative otitis media Acute recurrent serous otitis media, left 569880082 (SNOMED CT) 12/03 Active 12/03 Sasha Malik Acute non-suppurat gokul serous otitis media Serratia marcescens infection B96.89 (ICD-10-CM) 12/03 Active 12/03 Cesar Argueta MD Other specified bacterial agents as the cause of diseases classified elsewhere Facial swelling 271937493 (SNOMED CT) 12/03 Active 12/03 Aida Argueta Facial swelling Recurrent otitis media (ROM) 2637586067272 104 (SNOMED CT) 12/03 Inactive 12/03 Aida Argueta Otitis media of right ear Chronic mastoiditis, left 73697014 (SNOMED CT) 12/03 Active 12/03 Lydia Medrano Chronic mastoiditis Medications Medication Instructions Start Date Stop Date Generic Name NDC Provider ceftriaxone recon kikanoemi Rocephin 2gm IV Q 24hrs/ OPAT 06/01 ceftriaxone recon katy espana recon solnoemi Rocephin 2gm IV Q 24hrs INPAT 06/01 ceftriaxone recon katy Gonzales METRONIDAZOLE 500 MG TABS Take 1 tablet by mouth three times a day 06/01 metronidazole 87411224363 Cesar Argueta MD WEGOVY 0.5 MG/0.5ML SOAJ 06/01 semaglutide (weight loss) 35962420567 Lynn Jarvis HYDROCHLOROTHIAZIDE 12.5 MG TABS 06/01 hydrochlorothiazide 15277417399 [facility] VENLAFAXINE HCL 37.5 MG TABS 06/01 venlafaxine 65416159783 [facility] PRISTIQ 100 MG [id number] once a day desvenlafaxine succinate 86033994750 [facility] ZOSYN 4-0.5 GM/100ML SOLN Q 8 hrs/OPAT 01/26 piperacillin-tazoba ctam-dextrs 37787100999 Bhavana Alamo RN WEGOVY 0.5 MG/0.5ML SOAJ 06/01 semaglutide (weight loss) 44180166592 Farrah Gunjan VENLAFAXINE HCL 37.5 MG TABS 06/01 venlafaxine 40085139836 Farrah Gunjan HYDROCHLOROTHIAZIDE 12.5 MG TABS 04/26 hydrochlorothiazide 55477459632 Farrah Gunjan Medications Administered No information available. [...] Procedures Code Procedure Name Date Entry Date CPT-07639 CMP [id number] CBC with Differential 2024 CPT-18116 C- reactive protein CPT-06757 Sedimentation Rate (ESR) 202 09/17/27 CPT-48663 CMP W0245o,[id number] CBC with Differential 2024 CPT-11979 C- reactive protein CPT-13577 Sedimentation Rate (ESR) 09/16/20 CPT-sl STAT Labs [id number],[id number] CBC with Differential 2024 CPT-55545 CMP CPT-69933 C- reactive protein CPT-71707 Sedimentation Rate (ESR) 09/17/15 CPT- stat weekly Stat Weekly Labs CPT-00403 X-Ray, Chest (PICC Placement only) 06/02 CPT-14296 CMP [id number],[id number] CBC with Differential 2024 CPT-41154 C- reactive protein CPT-41956 Sedimentation Rate (ESR) 09/16/13 CPT-sl STAT Labs CPT-sl STAT Labs CPT-sl STAT Labs CPT-67967 CMP [id number],[id number] CBC with Differential 2023 CPT-41965 C- reactive protein CPT-43532 Sedimentation Rate (ESR) 08/24/14 CPT-sl STAT Labs CPT-sl STAT Labs CPT-26300 CMP [id number],[id number] CBC with Differential 2023 CPT-83696 C- reactive protein CPT-88974 Sedimentation Rate (ESR) 202 08/23/24 CPT- stat weekly Stat Weekly Labs CPT-sl STAT Labs CPT-sl STAT Labs CPT-10484 CMP [id number],[id number] CBC with Differential 2023 CPT-36711 C- reactive protein CPT-86193 Sedimentation Rate (ESR) 202 08/23/17 Vital Signs [...]
--- OUTSIDE RECORDS SUMMARY | 2025-05-13 10:52 | XMS_ITS | Clinical Summary ---
Author Organization [facility] Address [address] [id number] Care Team Providers Care Bingo Manager Name Role Phone Nicci Baker Primary Care Provider [phone] Social History Tobacco Use Types Packs/Day Years [...] patient's age to complete this topic Insurance 542PAIGE BEDOYA [id number] [facility] PPO Member Subscriber Plan / Payer (Ef fective 2023-Present) Name:Karo Colon Relation to Subscriber:Spouse Name:FAVIAN COLON Date of :1998 (Home) Address: [address] [place], [place] [address] [address] Payer ID:[id number] (NAIC) Type:Not on file Address: [address] [place] [id number] Care Teams Bingo Manager Relationship Specialty Start Date End Date Nicci Baker PA [address] [facility] [id number] PCP - General Physician Weight Reducing Technician 12/04/23
--- OUTSIDE RECORDS SUMMARY | 2025-05-13 10:53 | XMS_ITS | Patient Health Record ---
Author Organization [facility] Address [address] [place] [id number] Care Team Providers Care Supervisory Training Specialist Name Role Phone Nicci Baker Primary Care Provider [phone] Allergies No Known Allergies Results Component Value [...] Interpretation:Negative Performing Lab: Notes/Report: Test performed by [facility] [address], [place] [address] Phoenix Schwarz MD, Medical Assistant Per Diem CLIA: [id number] B burgdorferi (Lyme Disease) IgG Negative Negative B burgdorferi (Lyme Disease) IgM Negative Negative P-Comprehensive Metabolic Pa gene (CMP) Reviewed date:08/26/2024 02:10:10 PM Interpretation:Glu 101 Performing Lab: Notes/Report: Test performed by [facility] [address] [place] [address] [address], [place] [address] Phoenix Schwarz MD, Medical Assistant Per Diem CLIA: [id number] Sodium 141 135-145 mmol/L Potassium 4.1 3.5-5.3 [...] 0.81 Performing Lab: Notes/Report: Test performed by [facility] [address] [place] [address] [address], [place] [address] Phoenix Schwarz MD, Medical Assistant Per Diem CLIA: [id number] Rheumatoid Factor <10 <14.1 IU/mL C-Reactive Protein (CRP) 0.81 <0.50 mg/dL Antinuclear Antibodies (EVER) Screen, Reflex EVER 9 Panel Negative Negative This test is performed by Multiplex Bead Immunoassay methodology. Antinuclear Antibodies (EVER) Result Note SEE COMMENT For positive Autoantibodies, please refer to the interpretive chart here: [email or web address] CCP Antibodies <0.5 <0.5-3.0 U/mL [...] Interpretation:8 Performing Lab: Notes/Report: Test performed by [facility] [address] [place] [address] , [address], [place] [address] Phoenix Schwarz MD, Medical Assistant Per Diem CLIA: [id number] Erythrocyte Sedimentation Rate (ESR), Automated 8 <26 [...] Status Risk Notes Problem Gastroesophageal reflux disease (761762631) GERD (gastroesophageal reflux disease) (K21.9) Active confirmed Problem Hypertension (72039650) HTN (hypertension) (I10) Active confirmed Problem Hyperlipidemia (30098737) Hyperlipidemia (E78.5) Active confirmed Problem Vitamin D deficiency (71473863) Vitamin D deficiency (E55.9) Active confirmed Problem Paresthesia (63302831) Paresthesia (R20.2) Active confirmed Problem Mixed anxiety and depressive disorder (423366432) Depression with anxiety (F41.8) Active confirmed Problem Hearing loss (30230651) Hearing loss (H91.90) Active confirmed Problem Amenorrhea (25376018) Amenorrhea (N91.2) Active confirmed Problem Body mass index 40+ - severely obese (960452140) BMI 45.0-49.9, adult (Z68.42) Active confirmed Problem Migraine (07316522) Migraine wit hout status migrainosus, not intractable, unspecified migraine type (G43.909) Active confirmed Problem Anemia (732512866) Anemia, unspecified type (D64.9) Active confirmed Problem Morbid obesity (592140386) Obesity, morbid, BMI 40.0-49.9 (E66.01) Active confirmed Problem Insulin resistance (857302018) Insulin resistance (E88.81) Active confirmed Problem Chronic serous otitis media (90347946) Left chronic serous otitis media (H65.22) Active confirmed Problem Refractory migraine without aura (743042138) Intractable migraine without aura and without status migrainosus (G43.019) Active confirmed Problem Anxiety depression (122501239) Anxiety with depression (F41.8) Active confirmed Problem Major depression, single episode (48937185) Major depressive disorder with current active episode, unspecified depression episode severity, unspecified whether recurrent (F32.9) Active confirmed Vital Signs Heart Rate 115 /min 03/25/2025 Blood pressure diastolic 72 mm Hg 03/25/2025 Height 69.75 in 03/25/2025 Blood pressure systolic 126 mm Hg 03/25/2025 Weight 342.6 lbs 03/25/2025 BMI 49.51 kg/m2 03/25/2025 Encounters Encounter Location Date Provider Diagnosis [facility] [facility] [address] [place] [id number] 06/23/2024 Nicci Baker Vitamin B12 deficien cy E53.8 [facility] [facility] [facility] [address] [place] [id number] 07/01/2024 Nicci Baker Acute URI J06.9 [facility] [address] [place] [id number] 08/19/2024 Niccicnostance Baker Polyarthralgia M25.5 0 and Obesity, morbid, BMI 40.0-49.9 E66.01 [facility] [address] [place], [place] [id number] 08/24/2024 Nicci Crowdy [facility] [address] [place], [place] [id number] 11/18/2024 Nicci Crowdy History of mastoidit is Z86.69 [facility] [address] [place], [place] [id number] 03/25/2025 Nicci Crowdy Acute URI J06.9 [facility] [address] [place], [place] [id number] 05/26/2024 Nicci Crowdy History of mastoidit is Z86.69 [facility] [address] [place], [place] [id number] 06/02/2024 Nicci Crowdy [facility] [address] [place], [place] [id number] 06/11/2024 Nicci Crowdy HTN (hypertension) I 10 ; Iron deficiency E61.1 ; Vitamin D deficiency E55.9 ; Diabetes mellitus screening Z13.1 ; Anemia, unspecified type D64.9 ; Thyroid disorder screen Z13.29 ; Hyperlipidemia E78.5 and Vitamin B12 deficiency E53.8 [facility] [address] [place], [place] [id number] 06/16/2024 Nicci Crowdy [facility] [address] [place], [place] [id number] 06/16/2024 Nicci Crowdy [facility] [address] [place], [place] [id number] 07/05/2024 Nicci Crowdy [facility] [address] [place], [place] [id number] 08/26/2024 Nicci Crowdy [facility] [address] [place], [place] [id number] 10/01/2024 Nicci Crowdy [facility] [address] [place], [place] [id number] 10/06/2024 Nicci Crowdy Assessments Encounter Date Diagnosis [...] to see ENT next week at [facility]. She cannot see Dr. Fabian for [...] [employer] [address] [place] [address] [phone] [id number] 1EKaro Winter Self - patient is the insured Medications Administered Medication Instructions Date of Administration Dosage Notes B-12 06/23/2024 1 mL Medical (General) History Medical History History ICD Code Hypertension Insulin Resistance COVID 19- 03/23/2021 chronic OM left eAR left mastoiditis Surgical History Surgery Date(Month/Year) [place] Teeth Extractions 07/2019 01/15/2022 cholecystectomy 03/04/2022 C- Section 05/26/2023 left myringotomy tube placement 11/18/2023 Hospitalization History Reason Date(Month/Year) 05/2023 01/2022
[2025-05-13 12:54] VITALS: BMI 46.0
--- NOTE | 2025-05-13 13:00 | US_ITS ---
PROCEDURE: US OB BIOPHYSICAL PROFILE CLINICAL INDICATION: BPP COMPARISON: There are multiple previous exams available for comparison FINDINGS: Transabdominal sonographic images of the uterus were obtained. From her established due date she is 35weeks 4days. The following parameters are obtained: Viable Fetus in the cephalic presentation with a posterior placenta grade 2. Average ultrasound age is 36weeks 3days Estimated weight 2,903g, 6 lb 6 oz Measurements: heart Rate = 139bpm BPD = 37weeks 2days, 91 percentile HC = 37weeks 0 days, 53 percentile AC = 36weeks 6days, 88 percentile FL = 34weeks 4days, 19 percentile HC/AC is 0.99 FL/BPD is 0.73 FL/AC is 0.2 70 percentile Amniotic fluid index: 18.81cm, MVP 7.43 cm Qualitative AFV:2 Breathing movements: 2 Gross Body Movements: 2 Tone: 2 Biophysical profile score: 8 No obvious anomalies evident.Kidneys, stomach, bladder, four-chamber heart three-vessel cord appear normal. There is unilateral renal pelvis dilation measuring 4.4 mm considered normal at this stage. IMPRESSION: 1. Viable fetus in the cephalic presentation with a posterior placenta grade 2. 2. The fluid is within normal limits with an amniotic fluid index 18.81 cm, MVP 7.43 cm. 3. Biophysical profile is 8/8 with good breathing movement and movement seen. 4. There has been good interval growth with the fetus currently 70th percentile. 5. There is mild unilateral renal pelvis dilation measuring 4.4 mm considered normal at this stage in . 6. The rest of the limited anatomical scan appears normal. Dictated by: Donnie Oliver MD 05/17/2025 09:39 Donnie Oliver MD in OV 05/17/2025 09:39
[2025-05-13 13:12] VITALS: BP 141/91; PULSE 91; RESP 19; TEMP 36.6; O2SAT 99; BMI 46.0
[2025-05-13 13:30] VITALS: BP 142/69
[2025-05-13 13:35] VITALS: BP 142/88
[2025-05-13 13:59] LABS: Uric Acid 3.3 mg/dl (2.5-6.2)
[2025-05-13] MEDS: LABETALOL 100MG TABLET 200 MG PO (14:11)
[2025-05-13 14:30] VITALS: BP 126/78
== END 2025-05-13 14:43 | disposition home or self-care (01) ==
LOC: RAD 10:50 → OBOUT 12:50 → OB 12:50
PROVIDERS: PCP Physician Assistant; Visit Provider Obstetrics & Gynecology
DX: O28.3 Abnormal ultrasonic finding on antenatal screening of mother (principal); O10.913 Unspecified pre-existing hypertension complicating pregnancy, third trimester; O99.213 Obesity complicating pregnancy, third trimester; O99.343 Other mental disorders complicating pregnancy, third trimester; O09.293 Supervision of pregnancy with other poor reproductive or obstetric history, third trimester; F41.9 Anxiety disorder, unspecified; E66.9 Obesity, unspecified; Z3A.35 35 weeks gestation of pregnancy; Z36.9 Encounter for antenatal screening, unspecified
CPT/HCPCS: 76816; 76819; 82570; 84156; 84550; 99213

== ENCOUNTER 2025-05-13 10:50 | Outpatient (CLI) | payer BC, SELFPAY ==
[2025-05-13 08:01] VITALS: BMI 46.0
--- OUTSIDE RECORDS SUMMARY | 2025-05-13 10:53 | XMS_ITS | Clinical Summary ---
Author Organization [facility] Address [address] [place] [address] Phone Care Team Providers Care Disability Representative Name Role Phone Jasmeet SANTIAGO, Bhavana Maynard Unavailable Conditions or Problems Problem Name Problem Code Onset Date Status Entry Date Provider Comment Standard Description Annotate Ear pain, left 3622562965 (SNOMED CT) 06/01 Active 06/01 Cesar Argueta MD Otalgia of left ear Acute mastoiditis, left 803319964 (SNOMED CT) 06/01 Active 06/01 Cesar Argueta MD Acute mastoiditis Screening for HIV 339168128 (SNOMED CT) 12/17 Active 12/17 Gorge Handy Procedure carried out on subject Acute recurrent suppurative otitis media, left 609668854 (SNOMED CT) 12/04 Active 12/04 Sasha Malik Recurrent acute suppurative otitis media Acute recurrent serous otitis media, left 368481370 (SNOMED CT) 12/03 Active 12/03 Sasha Malik Acute non-suppurat gokul serous otitis media Serratia marcescens infection B96.89 (ICD-10-CM) 12/03 Active 12/03 Cesar Argueta MD Other specified bacterial agents as the cause of diseases classified elsewhere Facial swelling 081732563 (SNOMED CT) 12/03 Active 12/03 Aida Argueta Facial swelling Recurrent otitis media (ROM) [id number] 104 (SNOMED CT) 12/03 Inactive 12/03 Aida Argueta Otitis media of right ear Chronic mastoiditis, left 86669104 (SNOMED CT) 12/03 Active 12/03 Lydia Medrano Chronic mastoiditis Medications Medication Instructions Start Date Stop Date Generic Name NDC Provider ceftriaxone recon kikanoemi Rocephin 2gm IV Q 24hrs/ OPAT 06/01 ceftriaxone recon katy espana recon solnoemi Rocephin 2gm IV Q 24hrs INPAT 06/01 ceftriaxone recon katy Gonzales METRONIDAZOLE 500 MG TABS Take 1 tablet by mouth three times a day 06/01 metronidazole [id number] Cesar Argueta MD WEGOVY 0.5 MG/0.5ML SOAJ 06/01 semaglutide (weight loss) [id number] Lynn Jarvis HYDROCHLOROTHIAZIDE 12.5 MG TABS 06/01 hydrochlorothiazide [id number] [facility] VENLAFAXINE HCL 37.5 MG TABS 06/01 venlafaxine [id number] [facility] PRISTIQ 100 MG [id number] once a day desvenlafaxine succinate [id number] [facility] ZOSYN 4-0.5 GM/100ML SOLN Q 8 hrs/OPAT 01/26 piperacillin-tazoba ctam-dextrs 18332749801 Bhavana Alamo RN WEGOVY 0.5 MG/0.5ML SOAJ 06/01 semaglutide (weight loss) 55634727005 Farrah Gunjan VENLAFAXINE HCL 37.5 MG TABS 06/01 venlafaxine 87453731705 Farrah Gunjan HYDROCHLOROTHIAZIDE 12.5 MG TABS 04/26 hydrochlorothiazide [id number] Farrah Gunjan Medications Administered No information available. [...] Procedures Code Procedure Name Date Entry Date CPT-63379 CMP [id number] CBC with Differential 2024 CPT-66937 C- reactive protein CPT-28298 Sedimentation Rate (ESR) 202 09/17/27 CPT-49461 CMP [id number] CBC with Differential 2024 CPT-97119 C- reactive protein CPT-25379 Sedimentation Rate (ESR) 09/16/20 CPT-sl STAT Labs [id number] CBC with Differential 2024 CPT-55978 CMP CPT-61156 C- reactive protein CPT-46375 Sedimentation Rate (ESR) 09/17/15 CPT- stat weekly Stat Weekly Labs CPT-63724 X-Ray, Chest (PICC Placement only) 06/02 CPT-40133 CMP [id number] CBC with Differential 2024 CPT-12561 C- reactive protein CPT-22705 Sedimentation Rate (ESR) 09/16/13 CPT-sl STAT Labs CPT-sl STAT Labs CPT-sl STAT Labs CPT-99049 CMP [id number] CBC with Differential 2023 CPT-93071 C- reactive protein CPT-68624 Sedimentation Rate (ESR) 08/24/14 CPT-sl STAT Labs CPT-sl STAT Labs CPT-58322 CMP [id number] CBC with Differential 2023 CPT-24893 C- reactive protein CPT-52674 Sedimentation Rate (ESR) 202 08/23/24 CPT- stat weekly Stat Weekly Labs CPT-sl STAT Labs CPT-sl STAT Labs CPT-42152 CMP [id number] CBC with Differential 2023 CPT-19564 C- reactive protein CPT-56122 Sedimentation Rate (ESR) 202 08/23/17 Vital Signs [...]
[2025-05-13 11:16] LABS: Hematocrit 32.3 % (37.0-47.0); Hemoglobin 10.7 g/dL (12.2-16.2); Immature Granulocytes % 0.3 %; Mean Corpuscular HGB Conc 33.1 g/dL (31.8-35.4); Mean Corpuscular Hemoglobin 25.7 pg (27.0-31.2); Mean Corpuscular Volume 77.5 fl (81-99); Nucleated Red Blood Cells % 0 %; Platelet Count 239 K/mm3 (142-424); Red Blood Count 4.17 M/mm3 (4.20-5.40); Red Cell Distribution Width-SD 41.3 fL; White Blood Count 6.4 K/mm3 (4.8-10.8)
[2025-05-13 11:28] LABS: Albumin Level 3.5 g/dl (3.5-5.0); Chloride 111 mmol/L (98-107); Sodium 136 mmol/L (136-145)
[2025-05-13 11:29] LABS: Potassium 4.1 mmoL/L (3.5-5.1)
[2025-05-13 11:31] LABS: Alanine Aminotransferase 11 U/L (12-78); Albumin/Globulin Ratio 1.1 (1.1-1.8); Alkaline Phosphatase 78 U/L (38-126); Anion Gap 10.1 mEq/L (5-15); Aspartate Amino Transferase 23 U/L (14-36); Bilirubin,Total 0.5 mg/dl (0.2-1.3); Blood Urea Nitrogen 5 mg/dl (7-17); Carbon Dioxide 19 mmol/L (22.0-30.0); Creatinine Clearance Estimated 162 mL/min (50-200); Creatinine,Serum 0.60 mg/dl (0.52-1.04); Estimated Glomerular Filt Rate 123 ml/min (>60); GFR (African American) 149 ML/MIN (>60); Globulin 3.2 g/dL (1.3-3.2); Total Protein,Serum 6.7 g/dl (6.3-8.2)
[2025-05-13 11:32] LABS: Calcium 8.9 mg/dl (8.4-10.2); Glucose 80 mg/dl (74-100)
== END 2025-05-13 23:59 | disposition home or self-care (01) ==
LOC: PREOP 10:51
PROVIDERS: PCP Physician Assistant; Visit Provider Obstetrics & Gynecology
DX: Z01.812 Encounter for preprocedural laboratory examination (principal)
CPT/HCPCS: 80053; 85025